=== PATIENT | male | born 1955 | race Caucasian/White ===

== ENCOUNTER 2016-12-08 10:33 | Emergency (ER) | payer MEDICAID ==
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
[2016-12-08 11:07] VITALS: BP 140/78
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
== END 2016-12-08 11:25 | disposition home or self-care (01) ==
LOC: ER 10:33
DX: J02.9 Acute pharyngitis, unspecified (principal); R05 Cough; J34.89 Other specified disorders of nose and nasal sinuses; I25.10 Atherosclerotic heart disease of native coronary artery without angina pectoris; E78.00 Pure hypercholesterolemia, unspecified; I10 Essential (primary) hypertension; J45.909 Unspecified asthma, uncomplicated; J44.9 Chronic obstructive pulmonary disease, unspecified; E11.9 Type 2 diabetes mellitus without complications; Z87.442 Personal history of urinary calculi
CPT/HCPCS: 87070; 87880; 99283

== ENCOUNTER 2017-04-15 15:10 | Inpatient (IN) | payer MEDICAID ==
[2017-04-15] MEDS ORDERED: FAMOTIDINE INJ/PF 20 MG/2 ML SDV IV ONE (15:47)
[2017-04-15] MEDS ORDERED: NORMAL SALINE 1000 ML 1,000 ML IV PRN ×3 (15:47→18:53)
[2017-04-15] MEDS ORDERED: ONDANSETRON HCL INJ/PF 4 MG/2 ML SDV IV ONE (15:47)
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
[2017-04-15 16:32] LABS: ABSOLUTE BASOPHILS # (AUTO) 0.1 10^3/uL (0.0-0.2); ABSOLUTE EOSINOPHILS # (AUTO) 0.2 10^3/uL (0.0-0.6); ABSOLUTE MONOCYTES (AUTO) 0.6 10^3/uL (0.1-1.4); BASOPHILS % (AUTO) 0.9 % (0-2); EOSINOPHILS % (AUTO) 2.3 % (0-6); HEMATOCRIT 43.9 % (37.9-51.0); HEMOGLOBIN 14.5 g/dL (13.5-17.0); HGB HCT DIFFERENCE -0.4; MEAN CORPUSCULAR HEMOGLOBIN 27.5 pg (27.0-33.4); MEAN CORPUSCULAR HGB CONC 32.9 g/dL (32.0-36.0); MEAN CORPUSCULAR VOLUME 84 fl (80-97); MONOCYTES % (AUTO) 8.1 % (3-13); RED BLOOD COUNT 5.26 10^6/uL (4.35-5.55); RED CELL DISTRIBUTION WIDTH 14.8 % (11.5-14.0); SEGMENTED NEUTROPHILS % (AUTO) 50.7 % (42-78); WHITE BLOOD COUNT 7.9 10^3/uL (4.0-10.5)
[2017-04-15 16:57] LABS: ALANINE AMINOTRANSFERASE 39 U/L (21-72); ALBUMIN 4.2 g/dL (3.5-5.0); ALKALINE PHOSPHATASE 96 U/L (38-126); ANION GAP 13 (5-19); ASPARTATE AMINO TRANSFERASE 21 U/L (17-59); BILIRUBIN,DIRECT 0.3 mg/dL (0.0-0.4); BILIRUBIN,TOTAL 0.6 mg/dL (0.2-1.3); BLOOD UREA NITROGEN 31 mg/dL (7-20); CALCIUM 9.5 mg/dL (8.4-10.2); CARBON DIOXIDE 26 mmol/L (22-30); CHLORIDE 102 mmol/L (98-107); CREATININE RESULT 1.94 mg/dL (0.52-1.25); GLUCOSE 116 mg/dL (75-110); POTASSIUM 4.6 mmol/L (3.6-5.0); SODIUM 140.7 mmol/L (137-145); TOTAL PROTEIN 7.7 g/dL (6.3-8.2)
[2017-04-15 18:12] LABS: APPEARANCE,URINE SLIGHTLY-CLOUDY; BILIRUBIN,URINE NEGATIVE (NEGATIVE); GLUCOSE, URINE NEGATIVE (NEGATIVE); KETONES,URINE NEGATIVE (NEGATIVE); LEUKOCYTE ESTERASE,URINE NEGATIVE (NEGATIVE); NITRITE,URINE NEGATIVE (NEGATIVE); PROTEIN,URINE NEGATIVE (NEGATIVE); URINE SPECIFIC GRAVITY 1.016; UROBILINOGEN,URINE NEGATIVE mg/dL (<2.0)
--- NOTE | 2017-04-15 18:22 | RADIOLOGY REPORT (SQ) ---
EXAM DESCRIPTION: CT LTD RENAL STONE PROTOCOL ON COMPLETED DATE/TIME: 04/15/2017 6:11 pm REASON FOR STUDY: flank pain COMPARISON: None. TECHNIQUE: CT scan of the abdomen and pelvis performed without intravenous or oral contrast. Images reviewed with lung, soft tissue, and bone windows. Reconstructed coronal and sagittal MPR images revi ewed. All images stored on PACS. All CT scanners at this facility use dose modulation, iterative reconstruction, and/or weight based d osing when appropriate to reduce radiation dose to as low as reasonably achievable (ALARA). [facility]: Dose Right [facility]: CareDose [facility]: Dose Right [facility]: Teradose 4D [facility]: Platial RADIATION DOSE: 8.06mGy. LIMITATIONS: None. FINDINGS: LOWER CHEST: No significant findings. No nodules or infiltrates. NON-CONTRASTED LIVER, SPLEEN, ADRENALS: Evaluation limited by lack of IV contrast. No identified sign ificant masses. PANCREAS: No masses. No peripancreatic inflammatory changes. GALLBLADDER: Surgically absent. RIGHT KIDNEY AND URETER: No suspicious masses. Assessment limited by lack of IV contrast. No signif icant calcifications. No hydronephrosis or hydroureter. LEFT KIDNEY AND URETER: No suspicious masses. Assessment limited by lack of IV contrast. A tiny non obstructing intrarenal calculus is seen in the upper pole and in the lower pole. No hydronephrosis or hydroureter. AORTA AND RETROPERITONEUM: No aneurysm. No retroperitoneal masses or adenopathy. BOWEL AND PERITONEAL CAVITY: No obvious masses or inflammatory changes. No free fluid. APPENDIX: Surgically absent. PELVIS, BLADDER, AND ABDOMINAL WALL:No abnormal masses. No free fluid. Bladder normal. BONES: No significant findings. OTHER: No other significant finding. IMPRESSION: 2 tiny nonobstructing intrarenal calculi are seen in the left kidney. There is no urete ral stone or obstruction. TECHNICAL DOCUMENTATION: JOB ID: [id number] Quality ID # [id number]: Final reports with documentation of one or more dose reduction techniques (e.g., Au tomated exposure control, adjustment of the mA and/or kV according to patient size, use of iterative reconstruction technique) 2010 [employer]- All Rights Reserved
[2017-04-15] MEDS ORDERED: ACETAMINOPHEN 325 MG TABLET PO PRN (18:53)
[2017-04-15] MEDS ORDERED: ONDANSETRON HCL INJ/PF 4 MG/2 ML SDV IV PRN (18:53)
[2017-04-15] MEDS ORDERED: GLUCAGON,HUMAN RECOMB 1 MG INJ IM PRN (19:00)
[2017-04-15] MEDS ORDERED: DEXTROSE 40% GEL 15 GM TUBE PO PRN ×2 (19:00)
[2017-04-15] MEDS ORDERED: DEXTROSE 50%-WATER 25 GM/50 ML DISP.SYRIN IV PRN ×2 (19:00)
[2017-04-15] MEDS ORDERED: TRAMADOL HCL 50 MG TABLET PO PRN (20:30)
[2017-04-15] MEDS ORDERED: BUTALB/ACETAMINOPHEN/CAFFEINE 1 TAB EACH PO PRN (20:30)
[2017-04-15] MEDS ORDERED: LORATADINE 10 MG TABLET PO PRN (20:47)
[2017-04-15] MEDS ORDERED: LOPERAMIDE HCL 2 MG CAPSULE PO PRN (21:00)
[2017-04-15] MEDS: PANTOPRAZOLE SODIUM 40 MG VIAL IV SCH (21:46)
[2017-04-15] MEDS: METOPROLOL TARTRATE 25 MG TABLET PO SCH (21:47)
[2017-04-16 05:52] LABS: ABSOLUTE EOSINOPHILS # (AUTO) 0.1 10^3/uL (0.0-0.6); ABSOLUTE LYMPHOCYTES (AUTO) 2.1 10^3/uL (0.5-4.7); ABSOLUTE MONOCYTES (AUTO) 0.5 10^3/uL (0.1-1.4); ABSOLUTE NEUT (AUTO) 2.9 10^3/uL (1.7-8.2); BASOPHILS % (AUTO) 0.9 % (0-2); EOSINOPHILS % (AUTO) 2.5 % (0-6); HEMATOCRIT 40.2 % (37.9-51.0); HEMOGLOBIN 13.2 g/dL (13.5-17.0); HGB HCT DIFFERENCE -0.6; LYMPHOCYTES % (AUTO) 36.3 % (13-45); MEAN CORPUSCULAR HEMOGLOBIN 27.6 pg (27.0-33.4); MEAN CORPUSCULAR HGB CONC 32.9 g/dL (32.0-36.0); MEAN CORPUSCULAR VOLUME 84 fl (80-97); MONOCYTES % (AUTO) 8.4 % (3-13); RED BLOOD COUNT 4.79 10^6/uL (4.35-5.55); RED CELL DISTRIBUTION WIDTH 14.3 % (11.5-14.0); SEGMENTED NEUTROPHILS % (AUTO) 51.9 % (42-78); WHITE BLOOD COUNT 5.7 10^3/uL (4.0-10.5)
[2017-04-16 06:16] LABS: ANION GAP 8 (5-19); BLOOD UREA NITROGEN 25 mg/dL (7-20); CALCIUM 8.9 mg/dL (8.4-10.2); CARBON DIOXIDE 23 mmol/L (22-30); CHLORIDE 107 mmol/L (98-107); GLUCOSE 208 mg/dL (75-110); POTASSIUM 4.8 mmol/L (3.6-5.0); SODIUM 137.6 mmol/L (137-145)
[2017-04-16] MEDS: INSULIN LISPRO 100 UNIT/ML 3 ML VIAL SUBCUT PRN ×4 (08:15→22:44)
[2017-04-16] MEDS: ENOXAPARIN SODIUM INJ 30 MG/0.3 ML DISP.SYRIN SUBCUT SCH (08:15)
[2017-04-16] MEDS ORDERED: NORMAL SALINE 1000 ML 1,000 ML IV PRN (08:24)
[2017-04-16] MEDS: PANTOPRAZOLE SODIUM 40 MG VIAL IV SCH ×2 (10:00→22:34)
[2017-04-16] MEDS: TAMSULOSIN HCL 0.4 MG CAP.SR.24H PO SCH (10:00)
[2017-04-16] MEDS: ISOSORBIDE MONONITRATE 60 MG TAB.ER.24H PO SCH (10:01)
[2017-04-16] MEDS: METOPROLOL TARTRATE 25 MG TABLET PO SCH ×2 (10:01→22:35)
[2017-04-16] MEDS: FINASTERIDE 5 MG TABLET PO SCH (10:01)
--- NOTE | 2017-04-16 10:06 | PDOC PROGRESS REPORT ---
Subjective Progress Note for:: 04/16/17 Subjective:: Patient is feeling already better patient's kidney function is all back to the normal. Patient's denied any nausea any vomiting. Physical Exam Vital Signs: Temp Pulse Resp BP Pulse Ox 97.4 F 48 L 15 157/78 H 99 04/16/17 08:34 04/16/17 08:34 04/16/17 08:34 04/16/17 08:34 04/16/17 08:34 Intake & Output 04/15/17 04/16/17 04/17/17 06:59 06:59 06:59 Intake Total 1500 Balance 1500 Weight 78.1 kg General appearance: PRESENT: no acute distress, well-developed, well-nourished Head exam: PRESENT: atraumatic, normocephalic Eye exam: PRESENT: conjunctiva pink, EOMI, PERRLA. ABSENT: scleral icterus Ear exam: PRESENT: normal external ear exam Mouth exam: PRESENT: moist, tongue midline Neck exam: PRESENT: full ROM. ABSENT: carotid bruit, JVD, lymphadenopathy, thyromegaly Respiratory exam: PRESENT: clear to auscultation raya Cardiovascular exam: PRESENT: RRR. ABSENT: diastolic murmur, rubs, systolic murmur Pulses: PRESENT: normal dorsalis pedis pul, +2 pedal pulses bilateral Vascular exam: PRESENT: normal capillary refill GI/Abdominal exam: PRESENT: normal bowel sounds, soft. ABSENT: distended, guarding, mass, organolmegaly, rebound, tenderness Rectal exam: PRESENT: deferred Neurological exam: PRESENT: alert, awake, oriented to person, oriented to place , oriented to time, oriented to situation, CN II-XII grossly intact. ABSENT: motor sensory deficit Psychiatric exam: PRESENT: appropriate affect, normal mood. ABSENT: homicidal ideation, suicidal ideation Skin exam: PRESENT: dry, intact, warm. ABSENT: cyanosis, rash Results Laboratory Results: 04/16/17 05:36 04/16/17 05:36 04/16/17 04/16/17 05:36 05:36 WBC 5.7 RBC 4.79 Hgb 13.2 L Hct 40.2 MCV 84 MCH 27.6 MCHC 32.9 RDW 14.3 H Plt Count 180 Seg Neutrophils % 51.9 Lymphocytes % 36.3 Monocytes % 8.4 Eosinophils % 2.5 Basophils % 0.9 Absolute Neutrophils 2.9 Absolute Lymphocytes 2.1 Absolute Monocytes 0.5 Absolute Eosinophils 0.1 Absolute Basophils 0.0 Sodium 137.6 Potassium 4.8 Chloride 107 Carbon Dioxide 23 Anion Gap 8 BUN 25 H Creatinine 1.20 Est GFR ( Amer) > 60 Est GFR (Non-Af Amer) > 60 Glucose 208 H Calcium 8.9 Impressions: Limited or Localized CT 04/15/17 17:55 IMPRESSION: 2 tiny nonobstructing intrarenal calculi are seen in the left kidney. There is no ureteral stone or obstruction. Assessment & Plan - Diagnosis (1) Acute kidney failure Qualifiers: Acute renal failure type: unspecified Qualified Code(s): N17.9 - Acute kidney failure, unspecified Is this a current diagnosis for this admission?: YesPlan: Currently all resolving encouraged to more p.o. fluid intake and cut down the IV fluid (2) Intractable vomiting Qualifiers: Vomiting type: cyclical vomiting Nausea presence: with nausea Qualified Code(s): G43.A1 - Cyclical vomiting, intractable Is this a current diagnosis for this admission?: YesPlan: Most likely patient have a gastroparesis patient up-to-date with the endoscopy and colonoscopy and see her Dr. Quinonez's outpatient (3) Nausea vomiting and diarrhea Is this a current diagnosis for this admission?: YesPlan: Currently all stable (4) Type 2 diabetes mellitus Qualifiers: Diabetes mellitus complication status: with unspecified complications Is this a current diagnosis for this admission?: YesPlan: Continues a sliding scale will currently hold the metformin due to the acute renal failure (5) Hypertension Qualifiers: Hypertension type: essential hypertension Qualified Code(s): I10 - Essential (primary) hypertension Is this a current diagnosis for this admission?: YesPlan: Currently stable (6) Coronary artery disease Qualifiers: Coronary Disease-Associated Artery/Lesion type: unspecified vessel or lesion type Is this a current diagnosis for this admission?: YesPlan: Patients denied any chest pain and no acute finding (7) Hyperlipidemia Qualifiers: Hyperlipidemia type: other hyperlipidemia Qualified Code(s): E78.4 - Other hyperlipidemia Is this a current diagnosis for this admission?: YesPlan: Stable - Time Time Spent with patient: 15-24 minutes Medications reviewed and adjusted accordingly: Yes Anticipated discharge: Home Within: within 24 hours - Inpatient Certification Medical Necessity: Need for IV Antibiotics Post Hospital Care: D/C [facility] Documentation - Plan Summary Plan Summary: Patient is already improving will cut down the IV fluid hold the lisinopril and the Metformin due to the recent renal failure and adjust other medications. The patient's remained stable hopefully discharge within 24 hours
--- NOTE | 2017-04-16 15:47 | PDOC H&P ---
History of Present Illness Admission Date/PCP: 04/15/17 19:15 ZAIRE GEIGER MD Patient complains of: n/v History of Present Illness: TAHIR FOURNIER is a 61 year old male This is a 61-year-old male with a significant history of the type 2 diabetes mellitus history of the hypertension hyperlipidemia and coronary artery disease and a history of possible gastroparesis and seen the GI several times basically have a persistence of nausea vomiting since last several weeks and patient was trying some Zofran and Phenergan and not getting betterAnd came to the emergency department. In the ER initial workup was all stable except patient's creatinine was elevated Patient CT abdomen and pelvis without contrast so some renal calculi but other than that no obstructions and no other acute pathology When I saw the patient in the ER patient is already started feeling better and patient is able to keep it food down Patients denied any chest pain denied any shortness of the breath Past Medical History Cardiac Medical History: Reports: Coronary Artery Disease - CARDIAC STENTS X5, Hyperlipidema, Hypertension Denies: Atrial Fibrillation, Congestive Heart Failure, Myocardial Infarction , Peripheral Vascular Disease, Pulmonary Embolism Pulmonary Medical History: Reports: Asthma, Bronchitis, Chronic Obstructive Pulmonary Disease (COPD), Pneumonia, Sleep Apnea Denies: Respiratory Failure, Tuberculosis Neurological Medical History: Denies: Seizures Endocrine Medical History: Reports: Diabetes Mellitus Type 1, Diabetes Mellitus Type 2 Denies: Hyperthyroidism, Hypothyroidism Renal/ Medical History: Denies: End Stage Renal Disease Malignancy Medical History: Denies: Leukemia, Lung Cancer GI Medical History: Reports: Gastroesophageal Reflux Disease, Hiatal Hernia Denies: Crohn's Disease Musculoskeltal Medical History: Reports: Arthritis - bursitis left shoulder, back bone spurs Denies: Fibromyalgia Psychiatric Medical History: Reports: Depression - situational Denies: Bipolar Disorder, Dementia, Post Traumatic Stress Disorder Hematology: Reports: Anemia Denies: Hemophilia, Sickle Cell Disease Infectious Medical History: Denies: HIV Past Surgical History Past Surgical History: Reports: Cardiac Catheterization - 5 stents, Cholecystectomy, Coronary Stent, Orthopedic Surgery - right leg, back surgery, Tonsillectomy Denies: Appendectomy, Colostomy, Coronary Artery Bypass Graft, Gastric Bypass Surgery, Herniorrhaphy, Pacemaker Social History Smoking Status: Never Smoker Frequency of Alcohol Use: None Hx Recreational Drug Use: No Drugs: None Hx Prescription Drug Abuse: No - Advance Directive Resuscitation Status: Full Code Family History Family History: Arthritis, CAD, CVA, DM, Hyperlipidemia, Hypertension, Malignancy Parental Family History Reviewed: Yes Children Family History Reviewed: Yes Sibling(s) Family History Reviewed.: Yes Medication/Allergy Home Medications: Butalb/Acetaminophen/Caffeine [Fioricet (50-325-40 mg) Tablet] 1 tab PO BIDP PRN 04/15/17 Fexofenadine HCl [Cheri] 180 mg PO DAILYP PRN 04/15/17 Finasteride [Proscar 5 mg Tablet] 5 mg PO DAILY 04/15/17 Insulin Aspart [Novolog Flexpen] 20 unit SQ TID 04/15/17 Isosorbide Mononitrate [Imdur 60 mg Tablet.er] 60 mg PO DAILY 04/15/17 Lisinopril [Prinivil 5 mg Tablet] 5 mg PO DAILY 04/15/17 Loperamide HCl [Loperamide] 2 mg PO ASDIR PRN 04/15/17 Metformin HCl [Glucophage] 1,000 mg PO BIDACBS 04/15/17 Metoprolol Tartrate [Lopressor 25 mg Tablet] 25 mg PO Q12 04/15/17 Montelukast Sodium [Singulair 10 mg Tablet] 10 mg PO QPM 04/15/17 Tamsulosin HCl [Flomax 0.4 mg Cap.sr] 0.4 mg PO DAILY 04/15/17 Tramadol HCl [Ultram 50 mg Tablet] 50 mg PO BIDP PRN 04/15/17 Allergies/Adverse Reactions: clopidogrel bisulfate [From Plavix] Adverse Reaction (Severe, Verified 04/15/17 15:13) bleeding from ear/NOSE Review of Systems Constitutional: ABSENT: chills, fever(s), headache(s), weight gain, weight loss Eyes: ABSENT: visual disturbances Ears: ABSENT: hearing changes Cardiovascular: ABSENT: chest pain, dyspnea on exertion, edema, orthropnea, palpitations Respiratory: ABSENT: cough, hemoptysis Gastrointestinal: PRESENT: diarrhea, nausea, vomiting Genitourinary: ABSENT: dysuria, hematuria Musculoskeletal: ABSENT: joint swelling Integumentary: ABSENT: rash, wounds Neurological: ABSENT: abnormal gait, abnormal speech, confusion, dizziness, focal weakness, syncope Psychiatric: ABSENT: anxiety, depression, homidical ideation, suicidal ideation Endocrine: ABSENT: cold intolerance, heat intolerance, menstrual abnormalities, polydipsia, polyuria Hematologic/Lymphatic: ABSENT: easy bleeding, easy bruising, lymphadenopathy Physical Exam Vital Signs: Temp Pulse Resp BP Pulse Ox 98.0 F 56 L 11 L 124/78 95 04/15/17 15:13 04/15/17 15:13 04/15/17 19:00 04/15/17 18:01 04/15/17 19:00 General appearance: PRESENT: no acute distress, well-developed, well-nourished Head exam: PRESENT: atraumatic, normocephalic Eye exam: PRESENT: conjunctiva pink, EOMI, PERRLA. ABSENT: scleral icterus Ear exam: PRESENT: normal external ear exam Mouth exam: PRESENT: moist, tongue midline Neck exam: PRESENT: full ROM. ABSENT: carotid bruit, JVD, lymphadenopathy, thyromegaly Respiratory exam: PRESENT: clear to auscultation raya Cardiovascular exam: PRESENT: RRR. ABSENT: diastolic murmur, rubs, systolic murmur Pulses: PRESENT: normal dorsalis pedis pul, +2 pedal pulses bilateral Vascular exam: PRESENT: normal capillary refill GI/Abdominal exam: PRESENT: normal bowel sounds, soft. ABSENT: distended, guarding, mass, organolmegaly, rebound, tenderness Rectal exam: PRESENT: deferred Neurological exam: PRESENT: alert, awake, oriented to person, oriented to place , oriented to time, oriented to situation, CN II-XII grossly intact. ABSENT: motor sensory deficit Psychiatric exam: PRESENT: appropriate affect, normal mood. ABSENT: homicidal ideation, suicidal ideation Skin exam: PRESENT: dry, intact, warm. ABSENT: cyanosis, rash Results Impressions: Limited or Localized CT 04/15/17 17:55 IMPRESSION: 2 tiny nonobstructing intrarenal calculi are seen in the left kidney. There is no ureteral stone or obstruction. Assessment & Plan - Diagnosis (1) Acute kidney failure Qualifiers: Acute renal failure type: unspecified Qualified Code(s): N17.9 - Acute kidney failure, unspecified Is this a current diagnosis for this admission?: YesPlan: Start the patient on IV fluid and hold the lisinopril and the Metformin (2) Intractable vomiting Qualifiers: Vomiting type: cyclical vomiting Nausea presence: with nausea Qualified Code(s): G43.A1 - Cyclical vomiting, intractable Is this a current diagnosis for this admission?: YesPlan: Most likely related to the gastroparesis patient already seen by Dr. Quinonez and a CT of the abdomen and pelvis was all stable (3) Nausea vomiting and diarrhea Is this a current diagnosis for this admission?: YesPlan: Currently all stable (4) Coronary artery disease Qualifiers: Coronary Disease-Associated Artery/Lesion type: unspecified vessel or lesion type Is this a current diagnosis for this admission?: YesPlan: Patients denied any chest pain and no acute finding (5) Dehydration Is this a current diagnosis for this admission?: YesPlan: Continuous IV fluid (6) Hyperlipidemia Qualifiers: Hyperlipidemia type: other hyperlipidemia Qualified Code(s): E78.4 - Other hyperlipidemia Is this a current diagnosis for this admission?: Yes (7) Hypertension Qualifiers: Hypertension type: essential hypertension Qualified Code(s): I10 - Essential (primary) hypertension Is this a current diagnosis for this admission?: YesPlan: Hold the lisinopril (8) Type 2 diabetes mellitus Qualifiers: Diabetes mellitus complication status: with unspecified complications Is this a current diagnosis for this admission?: YesPlan: Continues a sliding scale will currently hold the metformin due to the acute renal failure - Time Time Spent: 30 to 50 Minutes Medications reviewed and adjusted accordingly: Yes Anticipated discharge: Home Within: within 48 hours - Inpatient Certification Medical Necessity: Need Close Monitoring Due to Risk of Patient Decompensation, Need For IV Fluids Post Hospital Care: D/C Hearing Care Professional Documentation - Plan Summary Plan Summary: Admitted in the telemetry bed start the IV fluid and IV Zofran and hold the lisinopril and the Metformin and continues to monitor the patient's
[2017-04-16] MEDS ORDERED: MONTELUKAST SODIUM 10 MG TABLET PO SCH (18:00)
[2017-04-17 05:04] LABS: ABSOLUTE EOSINOPHILS # (AUTO) 0.2 10^3/uL (0.0-0.6); ABSOLUTE LYMPHOCYTES (AUTO) 1.9 10^3/uL (0.5-4.7); ABSOLUTE MONOCYTES (AUTO) 0.4 10^3/uL (0.1-1.4); ABSOLUTE NEUT (AUTO) 2.4 10^3/uL (1.7-8.2); BASOPHILS % (AUTO) 0.8 % (0-2); EOSINOPHILS % (AUTO) 3.3 % (0-6); HEMATOCRIT 40.7 % (37.9-51.0); HEMOGLOBIN 13.7 g/dL (13.5-17.0); HGB HCT DIFFERENCE 0.4; LYMPHOCYTES % (AUTO) 37.6 % (13-45); MEAN CORPUSCULAR HEMOGLOBIN 27.9 pg (27.0-33.4); MEAN CORPUSCULAR HGB CONC 33.6 g/dL (32.0-36.0); MEAN CORPUSCULAR VOLUME 83 fl (80-97); RED BLOOD COUNT 4.91 10^6/uL (4.35-5.55); RED CELL DISTRIBUTION WIDTH 13.9 % (11.5-14.0); SEGMENTED NEUTROPHILS % (AUTO) 49.3 % (42-78); WHITE BLOOD COUNT 4.9 10^3/uL (4.0-10.5)
[2017-04-17 05:22] LABS: ANION GAP 8 (5-19); BLOOD UREA NITROGEN 19 mg/dL (7-20); CALCIUM 9.8 mg/dL (8.4-10.2); CARBON DIOXIDE 24 mmol/L (22-30); CHLORIDE 105 mmol/L (98-107); CREATININE RESULT 0.99 mg/dL (0.52-1.25); GLUCOSE 232 mg/dL (75-110); POTASSIUM 4.5 mmol/L (3.6-5.0)
[2017-04-17 10:11] VITALS: BP 141/70
[2017-04-17] MEDS: ENOXAPARIN SODIUM INJ 30 MG/0.3 ML DISP.SYRIN SUBCUT SCH (10:16)
[2017-04-17] MEDS: FINASTERIDE 5 MG TABLET PO SCH (10:23)
[2017-04-17] MEDS: TAMSULOSIN HCL 0.4 MG CAP.SR.24H PO SCH (10:23)
[2017-04-17] MEDS: INSULIN LISPRO 100 UNIT/ML 3 ML VIAL SUBCUT PRN (10:23)
[2017-04-17] MEDS: ISOSORBIDE MONONITRATE 60 MG TAB.ER.24H PO SCH (10:23)
[2017-04-17] MEDS: METOPROLOL TARTRATE 25 MG TABLET PO SCH (10:23)
[2017-04-17] MEDS: PANTOPRAZOLE SODIUM 40 MG VIAL IV SCH (10:36)
--- NOTE | 2017-04-17 10:59 | PDOC DISCHARGE SUMMARY ---
General - Admit/Disc Date/PCP Admission Date/Primary Care Provider: 04/15/17 19:15 ZAIRE GEIGER MD Discharge Date: 04/17/17 - Discharge Diagnosis (1) Acute kidney failure Is this a current diagnosis for this admission?: YesSummary: Currently all resolved (2) Intractable vomiting Is this a current diagnosis for this admission?: YesSummary: Currently all resolved most likely underlying gastroparesis (3) Nausea vomiting and diarrhea Is this a current diagnosis for this admission?: YesSummary: All resolved (4) Coronary artery disease Is this a current diagnosis for this admission?: YesSummary: Currently stable no symptoms and patient see the cardiology every 6 month (5) Dehydration Is this a current diagnosis for this admission?: YesSummary: Currently all resolved (6) Hyperlipidemia Is this a current diagnosis for this admission?: YesSummary: Continues to current medications (7) Hypertension Is this a current diagnosis for this admission?: YesSummary: Stable we hold the lisinopril and reevaluate next week kidney functions and still remain stable restart again (8) Type 2 diabetes mellitus Is this a current diagnosis for this admission?: YesSummary: Continues the Lantus and NovoLog and DC the Metformin - Additional Information Resuscitation Status: Full Code Discharge Diet: Diabetic Discharge Activity: Activity As Tolerated, Balance Activity w/Rest Home Medications: Butalb/Acetaminophen/Caffeine [Fioricet (50-325-40 mg) Tablet] 1 tab PO BIDP PRN 04/15/17 Fexofenadine HCl [Cheri] 180 mg PO DAILYP PRN 04/15/17 Finasteride [Proscar 5 mg Tablet] 5 mg PO DAILY 04/15/17 Insulin Aspart [Novolog Flexpen] 20 unit SQ TID 04/15/17 Isosorbide Mononitrate [Imdur 60 mg Tablet.er] 60 mg PO DAILY 04/15/17 Loperamide HCl [Loperamide] 2 mg PO ASDIR PRN 04/15/17 Metoprolol Tartrate [Lopressor 25 mg Tablet] 25 mg PO Q12 04/15/17 Montelukast Sodium [Singulair 10 mg Tablet] 10 mg PO QPM 04/15/17 Tamsulosin HCl [Flomax 0.4 mg Cap.sr] 0.4 mg PO DAILY 04/15/17 Tramadol HCl [Ultram 50 mg Tablet] 50 mg PO BIDP PRN 04/15/17 History of Present Illness History of Present Illness: TAHIR FOURNIER is a 61 year old male This is a 61-year-old male with a significant history of the type 2 diabetes mellitus history of the hypertension hyperlipidemia and coronary artery disease and a history of possible gastroparesis and seen the GI several times basically have a persistence of nausea vomiting since last several weeks and patient was trying some Zofran and Phenergan and not getting betterAnd came to the emergency department. In the ER initial workup was all stable except patient's creatinine was elevated Patient CT abdomen and pelvis without contrast so some renal calculi but other than that no obstructions and no other acute pathology When I saw the patient in the ER patient is already started feeling better and patient is able to keep it food down Patients denied any chest pain denied any shortness of the breath Hospital Course Hospital Course: This is a 61-year-old male with ongoing problem for some nausea vomiting and seen by the Dr. Quinonez in the past and already have an endoscopy and colonoscopy done several times and most likely underlying gastroparesis having nausea vomiting since last couple weeks and came to the emergency department and found acute renal failure and dehydration's. Patient was given IV fluid and patient's CT abdomen pelvis without contrast was done and so some nonobstructive renal calculi but other than that no acute finding Patient is already started feeling better patient's kidney function is all resolved patient able to eat and keep it down without any problem and patient's move around in the hallway and no other issue Patient's other chronic medical problems all stable At this point patient's discharge home with the stable conditions and DC the lisinopril and the Metformin and continues to other home medications and reevaluate in a one-week and make appointment to see the GI for further evaluations as outpatient Physical Exam Vital Signs: Temp Pulse Resp BP Pulse Ox 97.7 F 55 L 20 141/70 H 99 04/17/17 10:04/17/17 10:08 04/17/17 10:04/17/17 10:04/17/17 10:08 Intake & Output 04/16/17 04/17/17 04/18/17 06:59 06:59 06:59 Intake Total 1500 752 Balance 1500 752 Weight 78.1 kg 78.2 kg General appearance: PRESENT: no acute distress, well-developed, well-nourished Head exam: PRESENT: atraumatic, normocephalic Eye exam: PRESENT: conjunctiva pink, EOMI, PERRLA. ABSENT: scleral icterus Ear exam: PRESENT: normal external ear exam Mouth exam: PRESENT: moist, tongue midline Neck exam: PRESENT: full ROM. ABSENT: carotid bruit, JVD, lymphadenopathy, thyromegaly Respiratory exam: PRESENT: clear to auscultation raya Cardiovascular exam: PRESENT: RRR. ABSENT: diastolic murmur, rubs, systolic murmur Pulses: PRESENT: normal dorsalis pedis pul, +2 pedal pulses bilateral Vascular exam: PRESENT: normal capillary refill GI/Abdominal exam: PRESENT: normal bowel sounds, soft. ABSENT: distended, guarding, mass, organolmegaly, rebound, tenderness Rectal exam: PRESENT: deferred Neurological exam: PRESENT: alert, awake, oriented to person, oriented to place , oriented to time, oriented to situation, CN II-XII grossly intact. ABSENT: motor sensory deficit Psychiatric exam: PRESENT: appropriate affect, normal mood. ABSENT: homicidal ideation, suicidal ideation Skin exam: PRESENT: dry, intact, warm. ABSENT: cyanosis, rash Results Laboratory Results: 04/17/17 03:58 04/17/17 03:58 04/17/17 04/17/17 03:58 03:58 WBC 4.9 RBC 4.91 Hgb 13.7 Hct 40.7 MCV 83 MCH 27.9 MCHC 33.6 RDW 13.9 Plt Count 196 Seg Neutrophils % 49.3 Lymphocytes % 37.6 Monocytes % 9.0 Eosinophils % 3.3 Basophils % 0.8 Absolute Neutrophils 2.4 Absolute Lymphocytes 1.9 Absolute Monocytes 0.4 Absolute Eosinophils 0.2 Absolute Basophils 0.0 Sodium 137.0 Potassium 4.5 Chloride 105 Carbon Dioxide 24 Anion Gap 8 BUN 19 Creatinine 0.99 Est GFR ( Amer) > 60 Est GFR (Non-Af Amer) > 60 Glucose 232 H Calcium 9.8 Impressions: Limited or Localized CT 04/15/17 17:55 IMPRESSION: 2 tiny nonobstructing intrarenal calculi are seen in the left kidney. There is no ureteral stone or obstruction. Plan Time Spent: Greater than 30 Minutes - DC home with the stable conditions and DC the lisinopril and the Metformin and follow as outpatients in a one-week and will repeat the Chem-7. Follow with the GI as outpatients make appointment
== END 2017-04-17 10:38 | disposition home or self-care (01) | DRG 684 ==
LOC: ER 15:10 → EH 18:53 → INTOOBSV 19:15 → EH 19:15 → UNDOADMOB 19:15 → OBSVTOIN 19:15 → 5 20:24
PROVIDERS: ADMIT Family Medicine; ATTEND Family Medicine
DX: N17.9 Acute kidney failure, unspecified (principal); E86.0 Dehydration; G43.A1 Cyclical vomiting, in migraine, intractable; I25.10 Atherosclerotic heart disease of native coronary artery without angina pectoris; E78.5 Hyperlipidemia, unspecified; I10 Essential (primary) hypertension; E11.43 Type 2 diabetes mellitus with diabetic autonomic (poly)neuropathy; K31.84 Gastroparesis; N20.0 Calculus of kidney; J44.9 Chronic obstructive pulmonary disease, unspecified; G47.30 Sleep apnea, unspecified; K21.9 Gastro-esophageal reflux disease without esophagitis; K44.9 Diaphragmatic hernia without obstruction or gangrene; M46.09 Spinal enthesopathy, multiple sites in spine; F43.21 Adjustment disorder with depressed mood; N40.0 Benign prostatic hyperplasia without lower urinary tract symptoms; Z88.8 Allergy status to other drugs, medicaments and biological substances; Z79.4 Long term (current) use of insulin; Z79.899 Other long term (current) drug therapy; Z95.5 Presence of coronary angioplasty implant and graft; Z90.49 Acquired absence of other specified parts of digestive tract; Z82.61 Family history of arthritis; Z82.3 Family history of stroke; Z82.49 Family history of ischemic heart disease and other diseases of the circulatory system; Z83.3 Family history of diabetes mellitus; Z80.9 Family history of malignant neoplasm, unspecified
CPT/HCPCS: 36415; 76380; 80048; 80053; 81001; 82962; 83690; 85025; 87086; 96361; 96365; 96375; 99285; J1650; J1815; J2405; J7030; S0028; S0164

== ENCOUNTER 2017-04-20 14:54 | Inpatient (IN) | payer MEDICAID ==
[2017-04-20 15:23] LABS: ABSOLUTE BASOPHILS # (AUTO) 0.1 10^3/uL (0.0-0.2); ABSOLUTE EOSINOPHILS # (AUTO) 0.2 10^3/uL (0.0-0.6); ABSOLUTE LYMPHOCYTES (AUTO) 2.1 10^3/uL (0.5-4.7); ABSOLUTE MONOCYTES (AUTO) 0.6 10^3/uL (0.1-1.4); ABSOLUTE NEUT (AUTO) 4.2 10^3/uL (1.7-8.2); EOSINOPHILS % (AUTO) 2.6 % (0-6); HEMATOCRIT 43.3 % (37.9-51.0); HEMOGLOBIN 14.4 g/dL (13.5-17.0); HGB HCT DIFFERENCE -0.1; LYMPHOCYTES % (AUTO) 29.5 % (13-45); MEAN CORPUSCULAR HEMOGLOBIN 27.6 pg (27.0-33.4); MEAN CORPUSCULAR HGB CONC 33.2 g/dL (32.0-36.0); MEAN CORPUSCULAR VOLUME 83 fl (80-97); MONOCYTES % (AUTO) 8.5 % (3-13); RED CELL DISTRIBUTION WIDTH 14.1 % (11.5-14.0); SEGMENTED NEUTROPHILS % (AUTO) 58.4 % (42-78); WHITE BLOOD COUNT 7.3 10^3/uL (4.0-10.5)
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
[2017-04-20 15:41] LABS: ALANINE AMINOTRANSFERASE 51 U/L (21-72); ALKALINE PHOSPHATASE 99 U/L (38-126); ANION GAP 14 (5-19); ASPARTATE AMINO TRANSFERASE 35 U/L (17-59); BILIRUBIN,DIRECT 0.3 mg/dL (0.0-0.4); BILIRUBIN,TOTAL 0.8 mg/dL (0.2-1.3); BLOOD UREA NITROGEN 27 mg/dL (7-20); CALCIUM 9.6 mg/dL (8.4-10.2); CARBON DIOXIDE 24 mmol/L (22-30); CHLORIDE 104 mmol/L (98-107); CREATINE KINASE 57 U/L (55-170); CREATININE RESULT 1.76 mg/dL (0.52-1.25); GLUCOSE 267 mg/dL (75-110); POTASSIUM 5.3 mmol/L (3.6-5.0); SODIUM 141.7 mmol/L (137-145); TOTAL PROTEIN 7.2 g/dL (6.3-8.2)
[2017-04-20] MEDS ORDERED: NORMAL SALINE 1000 ML 1,000 ML IV ONE (15:46)
[2017-04-20 15:52] LABS: CREATINE KINASE MB 0.69 ng/mL (<4.55)
[2017-04-20 15:54] LABS: TROPONIN I < 0.012 ng/mL
[2017-04-20] MEDS ORDERED: RINGERS SOLUTION,LACTATED 1,000 ML IV ONE (17:02)
[2017-04-21] MEDS ORDERED: DEXTROSE 40% GEL 15 GM TUBE PO PRN (00:06)
[2017-04-21] MEDS ORDERED: DEXTROSE 50%-WATER SYRINGE 12.5 GM/25 ML DOSE IV PRN (00:06)
[2017-04-21] MEDS ORDERED: GLUCAGON,HUMAN RECOMB 1 MG INJ IM PRN (00:06)
[2017-04-21] MEDS ORDERED: DEXTROSE 40% GEL 15 GM TUBE X 2 PO PRN (00:06)
[2017-04-21] MEDS ORDERED: DEXTROSE 50%-WATER SYRINGE 25 GM/50 ML DOSE IV PRN (00:06)
[2017-04-21] MEDS ORDERED: BUTALB/ACETAMINOPHEN/CAFFEINE 1 TAB EACH PO PRN (00:08)
[2017-04-21] MEDS ORDERED: TRAMADOL HCL 50 MG TABLET PO PRN (00:08)
[2017-04-21] MEDS ORDERED: LORATADINE 10 MG TABLET PO PRN (00:23)
[2017-04-21] MEDS ORDERED: METOPROLOL TARTRATE 25 MG TABLET PO ONE (00:30)
[2017-04-21] MEDS ORDERED: INSULIN GLARGINE,HUM.REC.ANLOG 1,000 UNIT/10 ML UNIT SUBCUT ONE (00:30)
[2017-04-21] MEDS: INSULIN LISPRO 100 UNIT/ML 3 ML VIAL SUBCUT PRN ×6 (00:55→22:06)
[2017-04-21] MEDS: INSULIN GLARGINE,HUM.REC.ANLOG 300 UNIT/3 ML INSULN.PEN SUBCUT SCH ×2 (00:55→22:06)
[2017-04-21] MEDS ORDERED: MONTELUKAST SODIUM 10 MG TABLET PO ONE (01:00)
[2017-04-21] MEDS: 1/2 NORMAL SALINE 1,000 ML IV PRN ×2 (01:00→14:21)
[2017-04-21 01:30] LABS: APPEARANCE,URINE CLEAR; BILIRUBIN,URINE NEGATIVE (NEGATIVE); GLUCOSE, URINE >=500 mg/dL (NEGATIVE); KETONES,URINE NEGATIVE (NEGATIVE); LEUKOCYTE ESTERASE,URINE NEGATIVE (NEGATIVE); NITRITE,URINE NEGATIVE (NEGATIVE); PROTEIN,URINE 30 mg/dL (NEGATIVE); URINE SPECIFIC GRAVITY 1.016; UROBILINOGEN,URINE NEGATIVE mg/dL (<2.0)
[2017-04-21] MEDS: LANSOPRAZOLE 30 MG TAB.RAP.DR PO SCH (05:19)
[2017-04-21] MEDS: ISOSORBIDE MONONITRATE 60 MG TAB.ER.24H PO SCH (09:30)
[2017-04-21] MEDS: FINASTERIDE 5 MG TABLET PO SCH (09:30)
[2017-04-21] MEDS: TAMSULOSIN HCL 0.4 MG CAP.SR.24H PO SCH (09:30)
[2017-04-21] MEDS: METOPROLOL TARTRATE 25 MG TABLET PO SCH ×3 (10:57→22:04)
--- NOTE | 2017-04-21 13:22 | PDOC H&P ---
History of Present Illness Admission Date/PCP: 04/20/17 18:41 ZAIRE GEIGER MD History of Present Illness: TAHIR FOURNIER is a 61 year old male, he came to the emergency room because he had episode of loss of consciousness there is no antecedent chest pain, syncope , shortness of breath. He was working in the sun for a very prolonged period of time ,it was felt that he probably was dehydrated in the emergency room he was evaluated the serum creatinine was elevated suggesting dehydration. He was admitted previously for dehydration Past Medical History Cardiac Medical History: Reports: Coronary Artery Disease - CARDIAC STENTS X5, Hyperlipidema, Hypertension Pulmonary Medical History: Reports: Asthma, Bronchitis, Chronic Obstructive Pulmonary Disease (COPD), Pneumonia, Sleep Apnea Neurological Medical History: Denies: Seizures Endocrine Medical History: Reports: Diabetes Mellitus Type 2 GI Medical History: Reports: Gastroesophageal Reflux Disease, Hiatal Hernia Musculoskeltal Medical History: Reports: Arthritis - bursitis left shoulder, back bone spurs Hematology: Reports: Anemia Past Surgical History Past Surgical History: Reports: Cardiac Catheterization - 5 stents, Cholecystectomy, Coronary Stent, Orthopedic Surgery - right leg, back surgery, Tonsillectomy Social History Smoking Status: Former Smoker Number of Years Smokin Frequency of Alcohol Use: None Hx Recreational Drug Use: No Drugs: None Hx Prescription Drug Abuse: No - Advance Directive Resuscitation Status: Full Code Family History Family History: Reviewed & Not Pertinent, Arthritis, CAD, CVA, DM, Hyperlipidemia, Hypertension, Malignancy Parental Family History Reviewed: Yes Children Family History Reviewed: Yes Sibling(s) Family History Reviewed.: Yes Medication/Allergy Home Medications: Butalb/Acetaminophen/Caffeine [Fioricet (50-325-40 mg) Tablet] 1 tab PO BIDP PRN 04/15/17 Fexofenadine HCl [Cheri] 180 mg PO DAILYP PRN 04/15/17 Finasteride [Proscar 5 mg Tablet] 5 mg PO DAILY 04/15/17 Insulin Aspart [Novolog Flexpen] 20 unit SQ AC 04/15/17 Isosorbide Mononitrate [Imdur 60 mg Tablet.er] 60 mg PO DAILY 04/15/17 Metoprolol Tartrate [Lopressor 25 mg Tablet] 25 mg PO Q12 04/15/17 Montelukast Sodium [Singulair 10 mg Tablet] 10 mg PO QPM 04/15/17 Tamsulosin HCl [Flomax 0.4 mg Cap.sr] 0.4 mg PO QHS 04/15/17 Tramadol HCl [Ultram 50 mg Tablet] 50 mg PO BIDP PRN 04/15/17 Insulin Glargine,Hum.rec.anlog [Lantus] 50 unit SQ QHS 04/20/17 Omeprazole 40 mg PO DAILY 04/20/17 Multivits-Minerals/FA/Lycopene [One Daily For Men Tablet] 1 tab PO DAILY Allergies/Adverse Reactions: clopidogrel bisulfate [From Plavix] Adverse Reaction (Severe, Verified 04/20/17 15:11) bleeding from ear/NOSE Review of Systems Constitutional: ABSENT: chills, fever(s), headache(s), weight gain, weight loss Eyes: ABSENT: visual disturbances Ears: ABSENT: hearing changes Cardiovascular: PRESENT: other - syncope Respiratory: ABSENT: cough, hemoptysis Gastrointestinal: ABSENT: abdominal pain, constipation, diarrhea, hematemesis, hematochezia, nausea, vomiting Genitourinary: ABSENT: dysuria, hematuria Musculoskeletal: ABSENT: joint swelling Integumentary: ABSENT: rash, wounds Neurological: ABSENT: abnormal gait, abnormal speech, confusion, dizziness, focal weakness, syncope Psychiatric: ABSENT: anxiety, depression, homidical ideation, suicidal ideation Endocrine: ABSENT: cold intolerance, heat intolerance, menstrual abnormalities, polydipsia, polyuria Hematologic/Lymphatic: ABSENT: easy bleeding, easy bruising, lymphadenopathy Physical Exam Vital Signs: Temp Pulse Resp BP Pulse Ox 98.2 F 55 L 19 163/81 H 97 04/21/17 10:57 04/21/17 10:57 04/21/17 10:57 04/21/17 10:57 04/21/17 10:57 Intake & Output 04/20/17 04/21/17 04/22/17 06:59 06:59 06:59 Intake Total 759 598 Output Total 1175 Balance 759 -577 Weight 80.2 kg General appearance: PRESENT: no acute distress, well-developed, well-nourished Head exam: PRESENT: atraumatic, normocephalic Eye exam: PRESENT: conjunctiva pink, EOMI, PERRLA Ear exam: PRESENT: normal external ear exam Mouth exam: PRESENT: moist, tongue midline Neck exam: PRESENT: full ROM Respiratory exam: PRESENT: clear to auscultation raya Cardiovascular exam: PRESENT: RRR, +S1, +S2 Pulses: PRESENT: normal dorsalis pedis pul, +2 pedal pulses bilateral Vascular exam: PRESENT: normal capillary refill GI/Abdominal exam: PRESENT: normal bowel sounds, soft Rectal exam: PRESENT: deferred Neurological exam: PRESENT: alert, awake, oriented to person, oriented to place , oriented to time, oriented to situation, CN II-XII grossly intact Psychiatric exam: PRESENT: appropriate affect, normal mood Skin exam: PRESENT: dry, intact, warm. ABSENT: cyanosis, rash Results Laboratory Results: 04/21/17 01:05 Urine Color YELLOW Urine Appearance CLEAR Urine pH 5.0 Ur Specific [place] 1.016 Urine Protein 30 H Urine Glucose (UA) >=500 H Urine Ketones NEGATIVE Urine Blood NEGATIVE Urine Nitrite NEGATIVE Ur Leukocyte Esterase NEGATIVE Urine WBC (Auto) 0 Urine RBC (Auto) 0 Assessment & Plan - Diagnosis (1) Syncope Qualifiers: Syncope type: unspecified Qualified Code(s): R55 - Syncope and collapse Is this a current diagnosis for this admission?: YesPlan: The etiology of the loss of consciousness is not clear, it could be related to the prolonged exposure in the sun, a 2D echo will be ordered (2) Acute kidney injury Is this a current diagnosis for this admission?: YesPlan: Acute kidney injury probably prerenal
[2017-04-21 13:40] LABS: HEMATOCRIT 38.2 % (37.9-51.0); HEMOGLOBIN 12.6 g/dL (13.5-17.0); HGB HCT DIFFERENCE -0.4; MEAN CORPUSCULAR HEMOGLOBIN 27.5 pg (27.0-33.4); MEAN CORPUSCULAR HGB CONC 32.9 g/dL (32.0-36.0); MEAN CORPUSCULAR VOLUME 84 fl (80-97); RED BLOOD COUNT 4.56 10^6/uL (4.35-5.55); RED CELL DISTRIBUTION WIDTH 14.2 % (11.5-14.0); WHITE BLOOD COUNT 6.5 10^3/uL (4.0-10.5)
[2017-04-21 13:45] LABS: PROTHROMBIN TIME 12.8 SEC (11.4-15.4)
[2017-04-21 13:46] LABS: PARTIAL THROMBOPLASTIN TIME 29.3 SEC (23.5-35.8)
[2017-04-21 14:09] LABS: ALANINE AMINOTRANSFERASE 44 U/L (21-72); ALBUMIN 3.3 g/dL (3.5-5.0); ALKALINE PHOSPHATASE 106 U/L (38-126); ANION GAP 13 (5-19); ASPARTATE AMINO TRANSFERASE 20 U/L (17-59); BILIRUBIN,DIRECT 0.3 mg/dL (0.0-0.4); BILIRUBIN,TOTAL 0.5 mg/dL (0.2-1.3); BLOOD UREA NITROGEN 21 mg/dL (7-20); CALCIUM 9.3 mg/dL (8.4-10.2); CARBON DIOXIDE 24 mmol/L (22-30); CHLORIDE 102 mmol/L (98-107); CREATININE RESULT 1.05 mg/dL (0.52-1.25); GLUCOSE 317 mg/dL (75-110); POTASSIUM 4.7 mmol/L (3.6-5.0); SODIUM 138.5 mmol/L (137-145); TOTAL PROTEIN 6.2 g/dL (6.3-8.2)
[2017-04-21 14:12] LABS: CREATINE KINASE MB 0.42 ng/mL (<4.55)
[2017-04-21 14:18] LABS: TROPONIN I < 0.012 ng/mL
[2017-04-21] MEDS: HEPARIN SOD (PORCINE) 5,000 UNIT/ML 1 ML SYRINGE SUBCUT SCH ×2 (14:18→22:06)
--- NOTE | 2017-04-21 15:12 | RADIOLOGY REPORT (SQ) ---
EXAM DESCRIPTION: CHEST PA/LAT COMPLETED DATE/TIME: 04/21/2017 2:51 pm REASON FOR STUDY: Status post fall, pain COMPARISON: 11/02/2016 EXAM PARAMETERS: NUMBER OF VIEWS: two views TECHNIQUE: Digital Frontal and Lateral radiographic views of the chest acquired. RADIATION DOSE: NA LIMITATIONS: none FINDINGS: LUNGS AND PLEURA: No new opacities, masses or pneumothorax. No pleural effusion. MEDIASTINUM AND HILAR STRUCTURES: No masses or contour abnormalities. HEART AND VASCULAR STRUCTURES: Heart stable in size. No evidence for failure. BONES: No acute findings. HARDWARE: None in the chest. OTHER: No other significant finding. IMPRESSION: NO ACUTE CARDIOPULMONARY PROCESS. NO SIGNIFICANT CHANGE FROM PRIOR STUDY. TECHNICAL DOCUMENTATION: JOB ID: [id number]- All Rights Reserved
--- NOTE | 2017-04-21 15:13 | RADIOLOGY REPORT (SQ) ---
EXAM DESCRIPTION: KNEE LEFT 2 VIEWS COMPLETED DATE/TIME: 04/21/2017 2:51 pm REASON FOR STUDY: Status post fall, pain COMPARISON: None. NUMBER OF VIEWS: Two views. TECHNIQUE: AP and lateral radiographic images acquired of the left knee. LIMITATIONS: None. FINDINGS: MINERALIZATION: Normal. BONES: No acute fracture or dislocation. No worrisome bone lesions. Mild enthesopathy superior thacker lla and tibial tuberosity. JOINT: No effusion. SOFT TISSUES: No soft tissue swelling. No radio-opaque foreign body. OTHER: No other significant finding. IMPRESSION: NO RADIOGRAPHIC EVIDENCE OF ACUTE INJURY. TECHNICAL DOCUMENTATION: JOB ID: [id number] [employer]- All Rights Reserved
[2017-04-21 21:22] LABS: CREATINE KINASE MB 0.54 ng/mL (<4.55)
[2017-04-21 21:23] LABS: TROPONIN I < 0.012 ng/mL
[2017-04-21] MEDS: MONTELUKAST SODIUM 10 MG TABLET PO SCH (22:04)
[2017-04-22 05:25] LABS: CREATINE KINASE MB 0.43 ng/mL (<4.55)
[2017-04-22 05:29] LABS: TROPONIN I < 0.012 ng/mL
[2017-04-22] MEDS: 1/2 NORMAL SALINE 1,000 ML IV PRN (05:58)
[2017-04-22] MEDS: LANSOPRAZOLE 30 MG TAB.RAP.DR PO SCH (06:35)
[2017-04-22] MEDS: HEPARIN SOD (PORCINE) 5,000 UNIT/ML 1 ML SYRINGE SUBCUT SCH ×3 (06:35→21:14)
--- NOTE | 2017-04-22 08:35 | PDOC PROGRESS REPORT ---
Subjective Progress Note for:: 04/22/17 Subjective:: Patient was admitted because of the syncopal episode and dehydration's while working at an outside. Patient's currently doing well denied any chest pain denied any shortness of the breath. Physical Exam Vital Signs: Temp Pulse Resp BP Pulse Ox 98.0 F 52 L 20 151/59 H 97 04/22/17 00:09 04/22/17 06:57 04/22/17 00:09 04/22/17 00:09 04/22/17 00:09 Intake & Output 04/21/17 04/22/17 04/23/17 06:59 06:59 06:59 Intake Total 759 4557 Output Total 3625 Balance 759 932 Weight 80.2 kg 80.6 kg General appearance: PRESENT: no acute distress, well-developed, well-nourished Head exam: PRESENT: atraumatic, normocephalic Eye exam: PRESENT: conjunctiva pink, EOMI, PERRLA. ABSENT: scleral icterus Ear exam: PRESENT: normal external ear exam Mouth exam: PRESENT: moist, tongue midline Neck exam: PRESENT: full ROM. ABSENT: carotid bruit, JVD, lymphadenopathy, thyromegaly Respiratory exam: PRESENT: clear to auscultation raya Cardiovascular exam: PRESENT: RRR. ABSENT: diastolic murmur, rubs, systolic murmur Pulses: PRESENT: normal dorsalis pedis pul, +2 pedal pulses bilateral Vascular exam: PRESENT: normal capillary refill GI/Abdominal exam: PRESENT: normal bowel sounds, soft. ABSENT: distended, guarding, mass, organolmegaly, rebound, tenderness Rectal exam: PRESENT: deferred Neurological exam: PRESENT: alert, awake, oriented to person, oriented to place , oriented to time, oriented to situation, CN II-XII grossly intact. ABSENT: motor sensory deficit Psychiatric exam: PRESENT: appropriate affect, normal mood. ABSENT: homicidal ideation, suicidal ideation Skin exam: PRESENT: dry, intact, warm. ABSENT: cyanosis, rash Results Laboratory Results: 04/21/17 13:24 04/21/17 13:24 04/21/17 04/21/17 04/21/17 13:24 13:24 13:24 WBC 6.5 RBC 4.56 Hgb 12.6 L Hct 38.2 MCV 84 MCH 27.5 MCHC 32.9 RDW 14.2 H Plt Count 189 Sodium 138.5 Potassium 4.7 Chloride 102 Carbon Dioxide 24 Anion Gap 13 BUN 21 H Creatinine Cancelled 1.05 Est GFR ( Amer) Cancelled > 60 Est GFR (Non-Af Amer) Cancelled > 60 Glucose 317 H Calcium 9.3 Total Bilirubin 0.5 AST 20 ALT 44 Alkaline Phosphatase 106 Total Protein 6.2 L Albumin 3.3 L 04/21/17 04/21/17 04/21/17 13:24 13:24 20:44 Creatine Kinase 31 L 43 L CK-MB (CK-2) 0.42 Troponin I < 0.012 04/21/17 04/22/17 04/22/17 20:44 04:48 04:48 Creatine Kinase 40 L CK-MB (CK-2) 0.54 0.43 Troponin I < 0.012 < 0.012 Impressions: Chest X-Ray 04/21/17 00:00 IMPRESSION: NO ACUTE CARDIOPULMONARY PROCESS. NO SIGNIFICANT CHANGE FROM PRIOR STUDY. Knee X-Ray 04/21/17 00:00 IMPRESSION: NO RADIOGRAPHIC EVIDENCE OF ACUTE INJURY. Assessment & Plan - Diagnosis (1) Acute kidney failure Qualifiers: Acute renal failure type: unspecified Qualified Code(s): N17.9 - Acute kidney failure, unspecified Is this a current diagnosis for this admission?: YesPlan: Most likely from the dehydration's is currently resolved (2) Syncope Qualifiers: Syncope type: unspecified Qualified Code(s): R55 - Syncope and collapse Is this a current diagnosis for this admission?: YesPlan: Most likely a from the working outside schedule the echocardiogram. Will consult the cardiology with the patient's heart rate is running in the lower range (3) Coronary artery disease Qualifiers: Coronary Disease-Associated Artery/Lesion type: unspecified vessel or lesion type Is this a current diagnosis for this admission?: YesPlan: Patient see the cardiology at the [facility] currently on cardiac enzyme is negative (4) Hypertension Qualifiers: Hypertension type: essential hypertension Qualified Code(s): I10 - Essential (primary) hypertension Is this a current diagnosis for this admission?: YesPlan: Currently stable (5) Type 2 diabetes mellitus Qualifiers: Diabetes mellitus complication status: with unspecified complications Is this a current diagnosis for this admission?: YesPlan: Continues to current medications - Time Time Spent with patient: 15-24 minutes Medications reviewed and adjusted accordingly: Yes Anticipated discharge: Home Within: within 24 hours - Inpatient Certification Medical Necessity: Need Close Monitoring Due to Risk of Patient Decompensation Post Hospital Care: D/C Side Splitter Documentation - Plan Summary Plan Summary: We will stop the IV fluid get the patient's walk in the hallway and consult the cardiology for further evaluations
[2017-04-22] MEDS: INSULIN LISPRO 100 UNIT/ML 3 ML VIAL SUBCUT PRN ×2 (09:09→12:22)
[2017-04-22] MEDS: METOPROLOL TARTRATE 25 MG TABLET PO SCH ×2 (09:10→21:13)
[2017-04-22] MEDS: ISOSORBIDE MONONITRATE 60 MG TAB.ER.24H PO SCH (09:11)
[2017-04-22] MEDS: TAMSULOSIN HCL 0.4 MG CAP.SR.24H PO SCH (09:11)
[2017-04-22] MEDS: FINASTERIDE 5 MG TABLET PO SCH (09:11)
--- NOTE | 2017-04-22 09:44 | EKG REPORT ---
SEVERITY:- ABNORMAL ECG - SINUS RHYTHM LEFT ANTERIOR FASCICULAR BLOCK : Confirmed by: Jessi Ortega 22-Apr-2017 09:43:47
--- NOTE | 2017-04-22 12:58 | PDOC CONSULTATION ---
Consultation Consult Date: 04/22/17 Attending physician:: ZAIRE GEIGER Consult reason:: Syncope History of Present Illness Admission Date/PCP: 04/20/17 23:50 ZAIRE GEIGER MD Patient complains of: Syncope History of Present Illness: Patient is a 61 year old male, with a past medical history including diabetes and hypertension, who presents to the emergency department via EMS with his for syncope onset at 1330 today. Patient reports he was mowing the lawn on a riding mower in 80 degree heat from 0900 until about 1300 today, drinking water throughout, when he went inside to cool down and have some water. While he was drinking he started to become nauseated and lightheaded, tried to walk to the bathroom and then blacked out but says he was still able to hear everything. Patient reports he hit his forehead during the fall and is complaining of head pain and chest pain after hitting his chest as well as vomiting after the episode. I have been asked to evaluate this patient because of history of syncope. There is no prior history of syncopal spell. Patient does however describe history of coronary artery disease and stent procedure. Past Medical History Cardiac Medical History: Reports: Coronary Artery Disease - CARDIAC STENTS X5, Hyperlipidema, Hypertension Denies: Atrial Fibrillation, Congestive Heart Failure, Myocardial Infarction , Peripheral Vascular Disease, Pulmonary Embolism Pulmonary Medical History: Reports: Asthma, Bronchitis, Chronic Obstructive Pulmonary Disease (COPD), Pneumonia, Sleep Apnea Denies: Respiratory Failure, Tuberculosis Neurological Medical History: Denies: Seizures Endocrine Medical History: Reports: Diabetes Mellitus Type 1, Diabetes Mellitus Type 2 Denies: Hyperthyroidism, Hypothyroidism Renal/ Medical History: Denies: End Stage Renal Disease Malignancy Medical History: Denies: Leukemia, Lung Cancer GI Medical History: Reports: Gastroesophageal Reflux Disease, Hiatal Hernia Denies: Crohn's Disease Musculoskeltal Medical History: Reports: Arthritis - bursitis left shoulder, back bone spurs Denies: Fibromyalgia Psychiatric Medical History: Denies: Bipolar Disorder, Dementia, Depression - situational, Post Traumatic Stress Disorder Hematology: Reports: Anemia Infectious Medical History: Denies: HIV Past Surgical History Past Surgical History: Reports: Cardiac Catheterization - 5 stents, Cholecystectomy, Coronary Stent, Orthopedic Surgery - right leg, back surgery, Tonsillectomy Denies: Appendectomy, Colostomy, Coronary Artery Bypass Graft, Gastric Bypass Surgery, Herniorrhaphy, Pacemaker Social History Information Source: Patient Smoking Status: Former Smoker Number of Years Smokin Frequency of Alcohol Use: None Hx Recreational Drug Use: No Drugs: None Hx Prescription Drug Abuse: No - Advance Directive Resuscitation Status: Full Code Surrogate healthcare decision maker:: Patient's is the surrogate decision-maker Family History Family History: Reviewed & Not Pertinent, Arthritis, CAD, CVA, DM, Hyperlipidemia, Hypertension, Malignancy Parental Family History Reviewed: Yes Children Family History Reviewed: Yes Sibling(s) Family History Reviewed.: Yes Medication/Allergy Home Medications: Butalb/Acetaminophen/Caffeine [Fioricet (50-325-40 mg) Tablet] 1 tab PO BIDP PRN 04/15/17 Fexofenadine HCl [Cheri] 180 mg PO DAILYP PRN 04/15/17 Finasteride [Proscar 5 mg Tablet] 5 mg PO DAILY 04/15/17 Insulin Aspart [Novolog Flexpen] 20 unit SQ AC 04/15/17 Isosorbide Mononitrate [Imdur 60 mg Tablet.er] 60 mg PO DAILY 04/15/17 Montelukast Sodium [Singulair 10 mg Tablet] 10 mg PO QPM 04/15/17 Tamsulosin HCl [Flomax 0.4 mg Cap.sr] 0.4 mg PO QHS 04/15/17 Tramadol HCl [Ultram 50 mg Tablet] 50 mg PO BIDP PRN 04/15/17 Omeprazole 40 mg PO DAILY 04/20/17 Multivits-Minerals/FA/Lycopene [One Daily For Men Tablet] 1 tab PO DAILY Amlodipine Besylate [Norvasc 5 mg Tablet] 5 mg PO DAILY #30 tablet 04/23/17 Insulin Glargine,Hum.rec.anlog [Lantus] 55 unit SQ QHS #0 04/23/17 Metoprolol Tartrate [Lopressor 25 mg Tablet] 12.5 mg PO Q12 #0 04/23/17 Allergies/Adverse Reactions: clopidogrel bisulfate [From Plavix] Adverse Reaction (Severe, Verified 04/20/17 15:11) bleeding from ear/NOSE Review of Systems Review of Systems: Please see history of present illness and past medical history as wall. Constitutional: No fever or chills reported. Head : No recent chronic headaches, recent head injury. Eyes: No recent eye pain, diplopia, redness, discharge, acute visual changes. Ears: No recent chronic ear pain, acute hearing loss, ear discharge. Oral cavity: No recent ulcerations, bleeding, oral cavity discomfort. Neck: No recent acute neck pain reported. Hematologic: No recent easy bruising or bleeding or hematologic malignancy reported. Lymphatic: No recent lymphatic malignancy, chronic lymphadenopathy reported yet Cardiovascular system review: See history of present illness. Respiratory system review: No recent chronic cough, hemoptysis, blood clots in the lungs reported. Mild Shortness of breath on exertion Gastrointestinal system review: Negative for any recent acute or chronic abdominal pain, hematemesis, melena, recent change in bowel habits. Nausea vomiting as reported in HPI Genitourinary system review: No recent acute or chronic hematuria, flank pain, UTI etc. reported. Skin system review: Negative for any recent abnormal bruising, no rash, no pruritus reported. Neurologic: No prior history of strokes, mini strokes, seizure disorder. Patient presents with syncope but no prior syncope before. Psychologic: No history of major psychosis or major depression reported. Musculoskeletal: Minor aches and pains reported. No acute joint swelling reported. Endocrine: No recent polyuria, polydipsia, recent heat or cold intolerance. Physical Exam Vital Signs: Temp Pulse Resp BP Pulse Ox 97.5 F 54 L 16 151/73 H 95 04/22/17 07:22 04/22/17 07:22 04/22/17 07:22 04/22/17 07:22 04/22/17 07:22 Intake & Output 04/21/17 04/22/17 04/23/17 06:59 06:59 06:59 Intake Total 759 4557 Output Total 3625 Balance 759 932 Weight 80.2 kg 80.6 kg Exam: GENERAL: well-nourished and in no acute distress. Alert and oriented x3 HEAD: Atraumatic, normocephalic. EYES: Pupils equal round and reactive to light, extraocular movements intact, sclera anicteric, conjunctiva are normal. ENT: TMs normal, nares patent, oropharynx clear without exudates. Moist mucous membranes. No oral ulcerations or bleeding gums noted NECK: supple without lymphadenopathy. Trachea is central. No cervical or axillary lymphadenopathy noted. Carotids are 2+, JVD WNL LUNGS: Respiration seems nonlabored, no significant accessory muscle action noted. Breath sounds clear to auscultation bilaterally and equal noted. No wheezes rales or rhonchi noted. No significant dullness noted on percussion. CHEST: Palpation of the chest wall shows no significant chest wall tenderness. No other significant abnormalities noted. HEART: [place] [employer], No PSH, 1/6 SOURAV aortic area, 1/6 joshi systolic murmur mitral area, no rubs, no gallops. ABDOMEN: Soft, no significant tenderness appreciated, normoactive bowel sounds. No guarding, no rebound. No rigidity noted . No masses appreciated. EXTREMITIES: Pedal pulses are 1-2+, no calf tenderness noted. No clubbing or cyanosis.trace to 1+ pedal edema noted NEUROLOGICAL: Focused neurological exam showed no significant neurologic deficit. Normal speech, no focal weakness appreciated. PSYCH: Normal mood, normal affect. Judgment and insight within normal limits. SKIN: No significant ecchymosis, rash, ulcerations or signs of pruritus noted. MUSCULOSKELETAL EXAM: No significant joint swelling noted. Results Laboratory Results: 04/21/17 13:24 04/21/17 13:24 04/21/17 04/21/17 04/21/17 13:24 13:24 13:24 WBC 6.5 RBC 4.56 Hgb 12.6 L Hct 38.2 MCV 84 MCH 27.5 MCHC 32.9 RDW 14.2 H Plt Count 189 Sodium 138.5 Potassium 4.7 Chloride 102 Carbon Dioxide 24 Anion Gap 13 BUN 21 H Creatinine Cancelled 1.05 Est GFR ( Amer) Cancelled > 60 Est GFR (Non-Af Amer) Cancelled > 60 Glucose 317 H Calcium 9.3 Total Bilirubin 0.5 AST 20 ALT 44 Alkaline Phosphatase 106 Total Protein 6.2 L Albumin 3.3 L 04/21/17 04/21/17 04/21/17 13:24 13:24 20:44 Creatine Kinase 31 L 43 L CK-MB (CK-2) 0.42 Troponin I < 0.012 04/21/17 04/22/17 04/22/17 20:44 04:48 04:48 Creatine Kinase 40 L CK-MB (CK-2) 0.54 0.43 Troponin I < 0.012 < 0.012 EKG Comments: Sinus rhythm but no acute ST-T wave changes are noted. Impressions: Chest X-Ray 04/21/17 00:00 IMPRESSION: NO ACUTE CARDIOPULMONARY PROCESS. NO SIGNIFICANT CHANGE FROM PRIOR STUDY. Knee X-Ray 04/21/17 00:00 IMPRESSION: NO RADIOGRAPHIC EVIDENCE OF ACUTE INJURY. Assessment & Plan - Diagnosis (1) Syncope Qualifiers: Syncope type: unspecified Qualified Code(s): R55 - Syncope and collapse Is this a current diagnosis for this admission?: Yes (2) Coronary artery disease Qualifiers: Coronary Disease-Associated Artery/Lesion type: unspecified vessel or lesion type Is this a current diagnosis for this admission?: Yes (3) Hypertension Qualifiers: Hypertension type: essential hypertension Qualified Code(s): I10 - Essential (primary) hypertension Is this a current diagnosis for this admission?: Yes (4) Type 2 diabetes mellitus Qualifiers: Diabetes mellitus complication status: with unspecified complications Is this a current diagnosis for this admission?: Yes (5) Dehydration Is this a current diagnosis for this admission?: Yes - Notes Notes: 2D echo was ordered and results reviewed. EKG ordered and results reviewed. Syncope: Most likely related to dehydration leading to precipitation of neurocardiogenic syncope. Patient had prodrome of nausea and vomiting. Patient has been advised to avoid dehydration. Preliminary report of 2D echo shows well-preserved LV EF and no significant stenotic valvular lesions noted. Coronary artery disease: Currently EKG negative for any significant ischemic changes or any positive enzymatic abnormalities. Currently stable. Hypertension: Reasonably well controlled. Blood pressure goal in this patient is 135/85 or less. This was discussed with the patient. Currently blood pressure under reasonable control. Diabetes: Recommend good control of blood sugar. However should avoid any hypoglycemia. Patient being expertly managed by primary care MAlvarez. Dehydration: Patient currently dehydrated. Agree with IV fluids. We will repeat EKG to look for any evolving changes. Patient has been recommended to start CPAP therapy. Patient claims he has a diagnosis of sleep apnea. Discussed that sleep apnea does increase risk of coronary artery disease and also vasovagal syncope. - Time Time Spent: 30 to 50 Minutes - CODE STATUS was discussed, patient remains full code. Surrogate decision-maker patient's . Multiple medical problems were addressed. More than 50% of the time spent coordinating care, discussing management plans with involved caregivers. Management plans discussed with involved personnels. Medical decision making was of moderate to high complexity , patient's has multiple comorbidities. Medications reviewed and adjusted accordingly: Yes
--- NOTE | 2017-04-22 18:50 | XCELERA REPORT ---
[address] [address] Transthoracic Echocardiogram Report Name: TAHIR FOURNIER Age: 61 yrs Gender: Male : 1955 Patient Status: Inpatient Patient Location: 3S\S\327\S\A Study Date: 04/22/2017 10:07 AM Height: 69 in Weight: 176 lb BSA: 2.0 m2 Procedure: A complete two-dimensional transthoracic echocardiogram was performed (2D, M-mode, spectral and color flow Doppler). The study was technically adequate with some images being suboptimal in quality. Reason For Study: syncope Ordering Physician: JO VALENCIA Performed By: Lucy Schultz Interpretation Summary The left ventricular ejection fraction is normal. Doppler measurements suggest impaired left ventricular relaxation, which is associated with grade I/IV or mild diastolic dysfunction There is mild concentric left ventricular hypertrophy. The left ventricle is grossly normal size. Wall motion cannot be accurately commented on, but no definite regional wall motion abnormalities noted. The right ventricle is mildly dilated. The left atrium is mildly dilated. The right atrium is mildly dilated. There is a mild amount of mitral regurgitation There is no mitral valve stenosis. No aortic regurgitation is present. There is no aortic valve stenosis There is a trace to mild amount of tricuspid regurgitation There is mild pulmonary hypertension by echo Right ventricular systolic pressure is estimated to be elevated at 30- 40mmHg. There is no pericardial effusion. MMode/2D Measurements \T\ Calculations RVDd: 3.2 cm LVIDd: 5.0 cmFS: 36.0 % Ao root diam: 3.2 cm IVSd: 1.1 cm LVIDs: 3.2 cmEDV(Teich): 120.6 ml LVPWd: 1.2 cmESV(Teich): 41.9 ml Ao root area: 8.2 cm2 EF(Teich): 65.3 % LVOT diam: 2.2 cm LVOT area: 3.8 cm2 Doppler Measurements \T\ Calculations MV E max geovanni: MV dec slope: Ao V2 max: LV V1 max P.7 cm/sec 511.7 cm/sec2 230.0 cm/sec 4.2 mmHg MV A max geovanni: MV dec time: Ao max PG: LV V1 max: 62.1 cm/sec 0.20 sec 21.2 mmHg 102.6 cm/sec MV E/A: 1.7 ZEESHAN(V,D): 1.7 cm2 PA V2 max: PI end-d geovanni: TR max geovanni: 108.6 cm/sec 125.1 cm/sec 267.3 cm/sec PA max P.7 mmHg TR max P.6 mmHg Left Ventricle The left ventricle is grossly normal size. There is mild concentric left ventricular hypertrophy. The left ventricular ejection fraction is normal. Doppler measurements suggest impaired left ventricular relaxation, which is associated with grade I/IV or mild diastolic dysfunction. Wall motion cannot be accurately commented on, but no definite regional wall motion abnormalities noted. Right Ventricle The right ventricle is mildly dilated. There is normal right ventricular wall thickness. The right ventricular systolic function is normal. Atria The right atrium is mildly dilated. The left atrium is mildly dilated. Interarterial septum not well visualized and not well dopplered. Cannot comment on ASD/PFO presence. Mitral Valve The mitral valve is grossly normal. There is no mitral valve stenosis. There is a mild amount of mitral regurgitation. Aortic Valve The aortic valve is not well visualized secondary to technical limitations. There is no aortic valve stenosis. No aortic regurgitation is present. Tricuspid Valve The tricuspid valve is not well visualized, but is grossly normal. There is no tricuspid stenosis. There is a trace to mild amount of tricuspid regurgitation. There is mild pulmonary hypertension by echo. Right ventricular systolic pressure is estimated to be elevated at 30-40mmHg. Pulmonic Valve The pulmonic valve is not well visualized. Great Vessels The aortic root is not well visualized. The inferior vena cava was not well visualized. Effusions There is no pericardial effusion. : JO VALENCIA > Jessi Ortega
[2017-04-22] MEDS: MONTELUKAST SODIUM 10 MG TABLET PO SCH (21:13)
[2017-04-22] MEDS: INSULIN GLARGINE,HUM.REC.ANLOG 300 UNIT/3 ML INSULN.PEN SUBCUT SCH (21:24)
[2017-04-23] MEDS: INSULIN LISPRO 100 UNIT/ML 3 ML VIAL SUBCUT PRN ×2 (00:05→07:33)
[2017-04-23] MEDS: LANSOPRAZOLE 30 MG TAB.RAP.DR PO SCH (05:36)
[2017-04-23] MEDS: HEPARIN SOD (PORCINE) 5,000 UNIT/ML 1 ML SYRINGE SUBCUT SCH (05:36)
[2017-04-23 10:06] LABS: ANION GAP 14 (5-19); BLOOD UREA NITROGEN 21 mg/dL (7-20); CALCIUM 10.3 mg/dL (8.4-10.2); CARBON DIOXIDE 22 mmol/L (22-30); CHLORIDE 101 mmol/L (98-107); CREATININE RESULT 0.85 mg/dL (0.52-1.25); GLUCOSE 289 mg/dL (75-110); SODIUM 137.3 mmol/L (137-145)
[2017-04-23 10:07] LABS: POTASSIUM 4.9 mmol/L (3.6-5.0)
[2017-04-23] MEDS: ISOSORBIDE MONONITRATE 60 MG TAB.ER.24H PO SCH (10:17)
[2017-04-23] MEDS: FINASTERIDE 5 MG TABLET PO SCH (10:17)
[2017-04-23] MEDS: TAMSULOSIN HCL 0.4 MG CAP.SR.24H PO SCH (10:17)
[2017-04-23] MEDS: METOPROLOL TARTRATE 25 MG TABLET PO SCH (10:21)
[2017-04-23 10:37] VITALS: BP 188/76
--- NOTE | 2017-04-23 11:04 | EKG REPORT ---
SEVERITY:- OTHERWISE NORMAL ECG - SINUS BRADYCARDIA : Confirmed by: Jessi Ortega 23-Apr-2017 11:03:42
--- NOTE | 2017-04-23 14:20 | PDOC DISCHARGE SUMMARY ---
General - Admit/Disc Date/PCP Admission Date/Primary Care Provider: 04/20/17 23:50 ZAIRE GEIGER MD Discharge Date: 04/23/17 - Discharge Diagnosis (1) Acute kidney failure Is this a current diagnosis for this admission?: YesSummary: Currently all resolved (2) Syncope Is this a current diagnosis for this admission?: YesSummary: Most likely are due to the dehydration and working outside otherwise all other workup is negative (3) Coronary artery disease Is this a current diagnosis for this admission?: YesSummary: Stable (4) Hypertension Is this a current diagnosis for this admission?: YesSummary: Still holding the lisinoprilAnd add the Norvasc 5 mg dailyAnd decreased the Coreg half dose due to the heart rate (5) Type 2 diabetes mellitus Is this a current diagnosis for this admission?: YesSummary: Continues to insulin and hold the metformin - Additional Information Resuscitation Status: Full Code Discharge Diet: Diabetic Discharge Activity: Activity As Tolerated Home Medications: Butalb/Acetaminophen/Caffeine [Fioricet (50-325-40 mg) Tablet] 1 tab PO BIDP PRN 04/15/17 Fexofenadine HCl [Cheri] 180 mg PO DAILYP PRN 04/15/17 Finasteride [Proscar 5 mg Tablet] 5 mg PO DAILY 04/15/17 Insulin Aspart [Novolog Flexpen] 20 unit SQ AC 04/15/17 Isosorbide Mononitrate [Imdur 60 mg Tablet.er] 60 mg PO DAILY 04/15/17 Montelukast Sodium [Singulair 10 mg Tablet] 10 mg PO QPM 04/15/17 Tamsulosin HCl [Flomax 0.4 mg Cap.sr] 0.4 mg PO QHS 04/15/17 Tramadol HCl [Ultram 50 mg Tablet] 50 mg PO BIDP PRN 04/15/17 Omeprazole 40 mg PO DAILY 04/20/17 Multivits-Minerals/FA/Lycopene [One Daily For Men Tablet] 1 tab PO DAILY Amlodipine Besylate [Norvasc 5 mg Tablet] 5 mg PO DAILY #30 tablet 04/23/17 Insulin Glargine,Hum.rec.anlog [Lantus] 55 unit SQ QHS #0 04/23/17 Metoprolol Tartrate [Lopressor 25 mg Tablet] 12.5 mg PO Q12 #0 04/23/17 History of Present Illness History of Present Illness: TAHIR FOURNIER is a 61 year old male 61-year-old male came to the ER due to the dehydration's while working outside and not feeling well and possible syncopal episode and patient was admitting in the hospital for acute renal failure and dehydration's Hospital Course Hospital Course: This 59-year-old male was recently discharged from the hospital due to the nausea vomiting and acute renal failure went home and was working outside in the yard and the hot weather and patient started developing the dizziness and not feeling wellIn patients came to the ER patient was found dehydrated in acute renal failure. Patient was given IV fluid and patient's response very well Patient was running low heart rate and cardiology was consulted and echocardiogram was done and was all stable Patient's otherwise denied any other symptoms Physical Exam Vital Signs: Temp Pulse Resp BP Pulse Ox 97.5 F 53 L 16 188/76 H 94 04/23/17 10:34 04/23/17 10:34 04/23/17 10:34 04/23/17 10:34 04/23/17 10:34 Intake & Output 04/22/17 04/23/17 04/24/17 06:59 06:59 06:59 Intake Total 4557 2040 Output Total 3625 1000 Balance 932 1040 Weight 80.6 kg 77.6 kg General appearance: PRESENT: no acute distress, well-developed, well-nourished Head exam: PRESENT: atraumatic, normocephalic Eye exam: PRESENT: conjunctiva pink, EOMI, PERRLA. ABSENT: scleral icterus Ear exam: PRESENT: normal external ear exam Mouth exam: PRESENT: moist, tongue midline Neck exam: PRESENT: full ROM. ABSENT: carotid bruit, JVD, lymphadenopathy, thyromegaly Respiratory exam: PRESENT: clear to auscultation raya Cardiovascular exam: PRESENT: RRR. ABSENT: diastolic murmur, rubs, systolic murmur Pulses: PRESENT: normal dorsalis pedis pul, +2 pedal pulses bilateral Vascular exam: PRESENT: normal capillary refill GI/Abdominal exam: PRESENT: normal bowel sounds, soft. ABSENT: distended, guarding, mass, organolmegaly, rebound, tenderness Rectal exam: PRESENT: deferred Musculoskeletal exam: PRESENT: ambulatory Neurological exam: PRESENT: alert, awake, oriented to person, oriented to place , oriented to time, oriented to situation, CN II-XII grossly intact. ABSENT: motor sensory deficit Psychiatric exam: PRESENT: appropriate affect, normal mood. ABSENT: homicidal ideation, suicidal ideation Skin exam: PRESENT: dry, intact, warm. ABSENT: cyanosis, rash Results Laboratory Results: 04/21/17 13:24 04/23/17 09:37 04/23/17 04/23/17 04/23/17 04:27 06:16 09:37 Sodium Cancelled Cancelled 137.3 Potassium Cancelled Cancelled 4.9 Chloride Cancelled Cancelled 101 Carbon Dioxide Cancelled Cancelled 22 Anion Gap Cancelled Cancelled 14 BUN Cancelled Cancelled 21 H Creatinine Cancelled Cancelled 0.85 Est GFR ( Amer) Cancelled Cancelled > 60 Est GFR (Non-Af Amer) Cancelled Cancelled > 60 Glucose Cancelled Cancelled 289 H Calcium Cancelled Cancelled 10.3 H 04/21/17 04/21/17 04/21/17 13:24 13:24 20:44 Creatine Kinase 31 L 43 L CK-MB (CK-2) 0.42 Troponin I < 0.012 04/21/17 04/22/17 04/22/17 20:44 04:48 04:48 Creatine Kinase 40 L CK-MB (CK-2) 0.54 0.43 Troponin I < 0.012 < 0.012 Impressions: Chest X-Ray 04/21/17 00:00 IMPRESSION: NO ACUTE CARDIOPULMONARY PROCESS. NO SIGNIFICANT CHANGE FROM PRIOR STUDY. Knee X-Ray 04/21/17 00:00 IMPRESSION: NO RADIOGRAPHIC EVIDENCE OF ACUTE INJURY. Plan Time Spent: Greater than 30 Minutes - Discharge home with the stable conditions patient's clear by the cardiology patient's p.o. intake is good and the patient' s walk in the hallway without any problems
--- NOTE | 2017-04-23 19:30 | PDOC PROGRESS REPORT ---
Subjective Progress Note for:: 04/23/17 Subjective:: Patient seems to be doing better with gradual improvement. Pt is denying any chest arm or neck discomfort. Patient denying any PND, orthopnea. Patient denied any sustained palpitations, dizziness, syncope, near syncope. Patient denying any fever chills. Patient denying any other significant discomfort. Patient is maintaining sinus rhythm. Intermittent mild sinus bradycardia noted. Review of systems: Rest review of systems negative. Medications: Medications have been reviewed. Physical Exam Vital Signs: Temp Pulse Resp BP Pulse Ox 97.5 F 53 L 16 188/76 H 94 04/23/17 10:34 04/23/17 10:34 04/23/17 10:34 04/23/17 10:34 04/23/17 10:34 Intake & Output 04/22/17 04/23/17 04/24/17 06:59 06:59 06:59 Intake Total 4557 2040 Output Total 3625 1000 Balance 932 1040 Weight 80.6 kg 77.6 kg Exam: GENERAL: well-nourished and in no acute distress. Alert and oriented x3 HEAD: Atraumatic, normocephalic. EYES: Pupils equal round and reactive to light, extraocular movements intact, sclera anicteric, conjunctiva are normal. ENT: TMs normal, nares patent, oropharynx clear without exudates. Moist mucous membranes. No oral ulcerations or bleeding gums noted NECK: supple without lymphadenopathy. Trachea is central. No cervical or axillary lymphadenopathy noted. Carotids are 2+, JVD WNL LUNGS: Respiration seems nonlabored, no significant accessory muscle action noted. Breath sounds clear to auscultation bilaterally and equal noted. No wheezes rales or rhonchi noted. No significant dullness noted on percussion. CHEST: Palpation of the chest wall shows no significant chest wall tenderness. No other significant abnormalities noted. HEART: [place] CLAIMS REPRESENTATIVE, No PSH, 1/6 SOURAV aortic area, 1/6 joshi systolic murmur mitral area, no rubs, no gallops. ABDOMEN: Soft, no significant tenderness appreciated, normoactive bowel sounds. No guarding, no rebound. No rigidity noted . No masses appreciated. EXTREMITIES: Pedal pulses are 1-2+, no calf tenderness noted. No clubbing or cyanosis.trace to 1+ pedal edema noted NEUROLOGICAL: Focused neurological exam showed no significant neurologic deficit. Normal speech, no focal weakness appreciated. PSYCH: Normal mood, normal affect. Judgment and insight within normal limits. SKIN: No significant ecchymosis, rash, ulcerations or signs of pruritus noted. MUSCULOSKELETAL EXAM: No significant joint swelling noted. Results Laboratory Results: 04/21/17 13:24 04/23/17 09:37 04/23/17 04/23/17 04/23/17 04:27 06:16 09:37 Sodium Cancelled Cancelled 137.3 Potassium Cancelled Cancelled 4.9 Chloride Cancelled Cancelled 101 Carbon Dioxide Cancelled Cancelled 22 Anion Gap Cancelled Cancelled 14 BUN Cancelled Cancelled 21 H Creatinine Cancelled Cancelled 0.85 Est GFR ( Amer) Cancelled Cancelled > 60 Est GFR (Non-Af Amer) Cancelled Cancelled > 60 Glucose Cancelled Cancelled 289 H Calcium Cancelled Cancelled 10.3 H 04/21/17 04/21/17 04/21/17 13:24 13:24 20:44 Creatine Kinase 31 L 43 L CK-MB (CK-2) 0.42 Troponin I < 0.012 04/21/17 04/22/17 04/22/17 20:44 04:48 04:48 Creatine Kinase 40 L CK-MB (CK-2) 0.54 0.43 Troponin I < 0.012 < 0.012 EKG Comments: EKG reviewed. Shows sinus rhythm no acute ST-T wave changes noted. Telemetry strips reviewed. Mild intermittent sinus bradycardia noted. No significant tachycardia or bradycardia arrhythmias noted. Impressions: Chest X-Ray 04/21/17 00:00 IMPRESSION: NO ACUTE CARDIOPULMONARY PROCESS. NO SIGNIFICANT CHANGE FROM PRIOR STUDY. Knee X-Ray 04/21/17 00:00 IMPRESSION: NO RADIOGRAPHIC EVIDENCE OF ACUTE INJURY. Assessment & Plan - Diagnosis (1) Syncope Qualifiers: Syncope type: unspecified Qualified Code(s): R55 - Syncope and collapse Is this a current diagnosis for this admission?: Yes (2) Coronary artery disease Qualifiers: Coronary Disease-Associated Artery/Lesion type: unspecified vessel or lesion type Is this a current diagnosis for this admission?: Yes (3) Hypertension Qualifiers: Hypertension type: essential hypertension Qualified Code(s): I10 - Essential (primary) hypertension Is this a current diagnosis for this admission?: Yes (4) Type 2 diabetes mellitus Qualifiers: Diabetes mellitus complication status: with unspecified complications Is this a current diagnosis for this admission?: Yes (5) Dehydration Is this a current diagnosis for this admission?: Yes - Notes Notes: Syncope: Most likely related to dehydration leading to precipitation of neurocardiogenic syncope. Patient had prodrome of nausea and vomiting. Patient has been advised to avoid dehydration. Discussed 2D echo report which shows well-preserved LV EF and no significant stenotic valvular lesions noted. Coronary artery disease: Currently EKG negative for any significant ischemic changes or any positive enzymatic abnormalities. Currently stable. Hypertension: Reasonably well controlled. Blood pressure goal in this patient is 135/85 or less. This was discussed with the patient. Currently blood pressure under reasonable control. Diabetes: Recommend good control of blood sugar. However should avoid any hypoglycemia. Patient being expertly managed by primary care M.D.. Dehydration: Patient currently dehydrated. Agree with IV fluids. We will repeat EKG to look for any evolving changes. Patient has been recommended to start CPAP therapy. Patient claims he has a diagnosis of sleep apnea. Discussed that sleep apnea does increase risk of coronary artery disease and also vasovagal syncope. - Time Time with patient: 15-25 minutes - CODE STATUS was discussed, patient remains full code. Surrogate decision-maker unchanged. Multiple medical problems were addressed. More than 50% of the time spent coordinating care, discussing management plans with involved caregivers. Management plans discussed with involved personnels. Medical decision making was of moderate to high complexity , patient's has multiple comorbidities. Medications reviewed and adjusted accordingly: Yes
== END 2017-04-23 11:04 | disposition home or self-care (01) | DRG 684 ==
LOC: ER 14:54 → EH 18:41 → UNDOADMIN 18:41 → 3S 23:10 → EH 23:10 → INTOOBSV 23:50 → OBSVTOIN 23:50 → 3S 23:50 → 4N 04-22 22:48
PROVIDERS: ADMIT Family Medicine; ATTEND Family Medicine
DX: N17.9 Acute kidney failure, unspecified (principal); I25.10 Atherosclerotic heart disease of native coronary artery without angina pectoris; I10 Essential (primary) hypertension; E11.9 Type 2 diabetes mellitus without complications; E86.0 Dehydration; E78.5 Hyperlipidemia, unspecified; J44.9 Chronic obstructive pulmonary disease, unspecified; G47.30 Sleep apnea, unspecified; K21.9 Gastro-esophageal reflux disease without esophagitis; K44.9 Diaphragmatic hernia without obstruction or gangrene; M46.00 Spinal enthesopathy, site unspecified; M19.90 Unspecified osteoarthritis, unspecified site; D64.9 Anemia, unspecified; Z90.49 Acquired absence of other specified parts of digestive tract; Z95.5 Presence of coronary angioplasty implant and graft; Z79.4 Long term (current) use of insulin; Z79.899 Other long term (current) drug therapy; Z88.8 Allergy status to other drugs, medicaments and biological substances; Z87.891 Personal history of nicotine dependence; Z82.61 Family history of arthritis; Z82.49 Family history of ischemic heart disease and other diseases of the circulatory system; Z82.3 Family history of stroke; Z83.3 Family history of diabetes mellitus
CPT/HCPCS: 36415; 71020; 80048; 80053; 81001; 82550; 82553; 82962; 84484; 85025; 85027; 85610; 85730; 93005; 93010; 93306; 96361; 96365; 99285; J1644; J1815; J3490; J7030; J7120

== ENCOUNTER 2017-05-01 08:13 | Day surgery (SDC) | payer MEDICAID ==
--- NOTE | 2017-04-30 09:27 | HISTORY AND PHYSICAL E ---
History and Physical NAME: TAHIR FOURNIER : 1955 AGE: 61Y ADMITTED: 05/01/2017 ROOM: The patient was admitted recently to [facility] for dehydration and diabetes. He is being evaluated regarding anemia. We will arrange for upper endoscopy and later on consider colonoscopy. The patient did have cholecystectomy, coronary artery disease with a stent. He quit smoking. REVIEW OF SYSTEMS: ENDOCRINE: Diabetes. GASTROINTESTINAL: CVA. CARDIAC: Coronary artery disease. RESPIRATORY: Asthma, COPD. FAMILY HISTORY: The patient's father had alcohol disease. His mom had hemorrhage. PHYSICAL EXAMINATION: VITAL SIGNS: Blood pressure is 120/60, pulse 80, respirations 20, temperature 98. HEAD, EYES, EARS, NOSE, THROAT: Normal. ABDOMEN: Soft. NEUROLOGIC EXAM: Negative. CONCLUSION: 1. Anemia. 2. Hemorrhoids. 3. Diarrhea. 4. Atypical chest pain. 5. Coronary artery disease. 6. Cholecystectomy. 7. Reflux. PLAN: Upper scope. DICTATING PHYSICIAN: EARLENE VITALE M.D. [id number] Y#: [id number] ID: [id number] JOB#: [id number] ACCT: [id number] cc:EARLENE VITALE M.D. >
[~2017-05-01 08:13] MED LIST: EPINEPHRINE INJ 1 MG/10 ML DISP.SYRIN ONE; FENTANYL CITRATE INJ/PF 100 MCG/2 ML AMPUL ONE; FLUMAZENIL INJ 0.5 MG/5 ML VIAL IV ONE; GLYCOPYRROLATE INJ 0.4 MG/2 ML VIAL ONE; MIDAZOLAM 2 MG/2 ML INJ ONE; NALOXONE HCL INJ/PF 0.4 MG/1 ML SDV ONE; ONDANSETRON HCL INJ/PF 4 MG/2 ML SDV ONE
[2017-05-01 10:27] VITALS: BP 155/74
--- NOTE | 2017-05-01 10:41 | DISCHARGE SUMMARY E ---
Discharge Summary NAME: TAHIR FOURNIER : 1955 AGE: 61Y ADMITTED: 05/01/2017 DISCHARGED: HOSPITAL COURSE: The patient is 61 years old, presented with anemia. Patient underwent upper endoscopy today. It shows no evidence of ulcers. He did have some erosions in distal stomach. Hiatus hernia with question of Lei. Lab arranged for colonoscopy. PLAN: Lab studies. Soft diet. Consideration for upper endoscopy followup after 1 year for evaluation of reflux and hernia. Patient to see us in the office in the next few days. DICTATING PHYSICIAN: EARLENE VITALE M.D. [id number] PHY#: [id number] ID: [id number] JOB#: [id number] ACCT: [id number] cc:Kanu HENNESSY M.D. >
--- NOTE | 2017-05-01 10:41 | OPERATIVE REPORT E ---
Operative Report NAME: TAHIR FOURNIER : 1955 AGE: 61Y DATE OF SURGERY: 05/01/2017 ROOM: PREOPERATIVE DIAGNOSIS: Anemia. POSTOPERATIVE DIAGNOSIS: Hiatus hernia 1 cm size, thickening irregular mucosa at the GE junction, reflux. No stricture, no ulcers, no malignancy. Small hernia with mild esophagitis. SURGEON: EARLENE VITALE M.D. PROCEDURE: Gastroscopy: Prepyloric erosions, no ulcers, mild gastritis, H. pylori. Gastric biopsy obtained. Duodenoscopy: Duodenal bulb, descending duodenum, no ulcers, no bleeding. CONCLUSION: No bleeding. No ulcers. No malignancy. Hiatus hernia with reflux and gastric mucosa protruding to the distal esophagus. Question early Lei is a consideration. No ulcers, gastritis. PLAN: Consider upper endoscopy after one year to further evaluate the reflux and hiatus hernia. Patient tolerated the procedure well and discharged to the room in stable condition. Plan lab studies arranged for colonoscopy. DICTATING PHYSICIAN: EARLENE VITALE M.D. [id number] [facility]#: [id number] ID: [id number] JOB#: [id number] ACCT: [id number] cc:Kanu HENNESSY M.D. >
[2017-05-01 10:46] LABS: ABSOLUTE BASOPHILS # (AUTO) 0.1 10^3/uL (0.0-0.2); ABSOLUTE EOSINOPHILS # (AUTO) 0.2 10^3/uL (0.0-0.6); ABSOLUTE LYMPHOCYTES (AUTO) 1.9 10^3/uL (0.5-4.7); ABSOLUTE MONOCYTES (AUTO) 0.4 10^3/uL (0.1-1.4); ABSOLUTE NEUT (AUTO) 2.7 10^3/uL (1.7-8.2); BASOPHILS % (AUTO) 1.1 % (0-2); EOSINOPHILS % (AUTO) 3.8 % (0-6); LYMPHOCYTES % (AUTO) 36.9 % (13-45); MEAN CORPUSCULAR HEMOGLOBIN 27.2 pg (27.0-33.4); MEAN CORPUSCULAR HGB CONC 32.5 g/dL (32.0-36.0); MEAN CORPUSCULAR VOLUME 84 fl (80-97); MONOCYTES % (AUTO) 7.4 % (3-13); RED BLOOD COUNT 4.79 10^6/uL (4.35-5.55); RED CELL DISTRIBUTION WIDTH 14.4 % (11.5-14.0); SEGMENTED NEUTROPHILS % (AUTO) 50.8 % (42-78); WHITE BLOOD COUNT 5.3 10^3/uL (4.0-10.5)
[2017-05-01 11:03] LABS: ALANINE AMINOTRANSFERASE 37 U/L (21-72); ALBUMIN 3.6 g/dL (3.5-5.0); ALKALINE PHOSPHATASE 122 U/L (38-126); ANION GAP 9 (5-19); ASPARTATE AMINO TRANSFERASE 19 U/L (17-59); BILIRUBIN,DIRECT 0.3 mg/dL (0.0-0.4); BILIRUBIN,TOTAL 0.6 mg/dL (0.2-1.3); BLOOD UREA NITROGEN 15 mg/dL (7-20); CALCIUM 8.5 mg/dL (8.4-10.2); CARBON DIOXIDE 24 mmol/L (22-30); CHLORIDE 104 mmol/L (98-107); CREATININE RESULT 0.85 mg/dL (0.52-1.25); GLUCOSE 222 mg/dL (75-110); IRON 71.6 ug/dL (49-181); POTASSIUM 4.3 mmol/L (3.6-5.0); SODIUM 136.9 mmol/L (137-145); TOTAL PROTEIN 6.6 g/dL (6.3-8.2)
[2017-05-01 11:32] LABS: CARCINOEMBRYONIC ANTIGEN 2.1 ng/mL (<3.0)
== END 2017-05-01 10:45 | disposition home or self-care (01) ==
LOC: END 08:13
PROVIDERS: ATTEND Specialist
PROC: 0DB68ZX Excision of Stomach, Via Natural or Artificial Opening Endoscopic, Diagnostic (ICD-10-PCS; principal; 2017-05-01 09:00)
DX: K44.9 Diaphragmatic hernia without obstruction or gangrene (principal); K21.0 Gastro-esophageal reflux disease with esophagitis; K25.9 Gastric ulcer, unspecified as acute or chronic, without hemorrhage or perforation; K29.50 Unspecified chronic gastritis without bleeding; J44.9 Chronic obstructive pulmonary disease, unspecified; E11.9 Type 2 diabetes mellitus without complications; I25.10 Atherosclerotic heart disease of native coronary artery without angina pectoris; Z87.891 Personal history of nicotine dependence; Z98.61 Coronary angioplasty status
CPT/HCPCS: 43239; 36415; 82306; 82962; 82607; 82378; 82728; 83540; 85025; 80053; 88342 ×2; 88305 ×2; J2250; J3010; J2405; J0171; J2310; J3490

== ENCOUNTER → 2017-05-01 | Outpatient (CLI) | payer MEDICAID ==
--- NOTE | 2017-05-01 12:37 | RADIOLOGY REPORT (SQ) ---
EXAM DESCRIPTION: CHEST PA/LATERAL COMPLETED DATE/TIME: 05/01/2017 11:33 am REASON FOR STUDY: MYALGIA COMPARISON: Two-view chest 04/21/2017, 11/02/2016, 12/12/2015 EXAM PARAMETERS: NUMBER OF VIEWS: two views TECHNIQUE: Digital Frontal and Lateral radiographic views of the chest acquired. RADIATION DOSE: NA LIMITATIONS: none FINDINGS: LUNGS AND PLEURA: No opacities, masses or pneumothorax. No pleural effusion. MEDIASTINUM AND HILAR STRUCTURES: No masses or contour abnormalities. HEART AND VASCULAR STRUCTURES: Stable mild cardiomegaly BONES: No acute findings. HARDWARE: None in the chest. OTHER: No other significant finding. IMPRESSION: NO SIGNIFICANT RADIOGRAPHIC FINDING IN THE CHEST. TECHNICAL DOCUMENTATION: JOB ID: [id number] [employer]- All Rights Reserved
== END ==
LOC: OD 10:58
PROVIDERS: ATTEND Physician Assistant
DX: M79.1 Myalgia (principal)
CPT/HCPCS: 71020

== ENCOUNTER 2017-05-24 08:26 | Day surgery (SDC) | payer MEDICAID ==
--- NOTE | 2017-05-13 10:06 | HISTORY AND PHYSICAL E ---
History and Physical NAME: TAHIR FOURNIER : 1955 AGE: 61Y ADMITTED: 05/24/2017 ROOM: REFERRING PHYSICIAN: Dr. Giles. CHIEF COMPLAINT: Colon screening. HISTORY: Patient does have history of rectosigmoid polyps, too small to biopsy, 2008. Colonoscopy done in 2011 showing hemorrhoids, diarrhea, reflux. Patient did have history of COPD, reflux. He does have history of anemia. Hemoglobin . Question hemolysis. MEDICATIONS: 1. Metoprolol. 2. Insulin. 3. Imodium. ALLERGIES: 1. CODEINE. 2. PENICILLIN. REVIEW OF SYSTEMS: ENDOCRINE: Diabetes. GASTROINTESTINAL: Colon screening. RESPIRATORY: Asthma. PHYSICAL EXAMINATION: VITAL SIGNS: Blood pressure 120/60, pulse 80, respirations 18, temperature is 98. HEAD, EYES, EARS, NOSE, THROAT: Normal. ABDOMEN: Soft. NEUROLOGIC: Exam negative. CONCLUSION: COLON SCREENING. PLAN: Colonoscopy, exam 05/24/2017. DICTATING PHYSICIAN: EARLENE VITALE M.D. [id number] PHY#: [id number] ID: [id number] JOB#: [id number] ACCT: [id number] cc:EARLENE VITALE M.D. >
[~2017-05-24 08:26] MED LIST changes: +GLUCAGON,HUMAN RECOMB 1 MG INJ ONE; +LIDOCAINE 2% JELLY 30 ML TUBE ONE
[2017-05-24 10:39] VITALS: BP 177/78
--- NOTE | 2017-05-24 11:14 | OPERATIVE REPORT E ---
Operative Report NAME: TAHIR FOURNIER : 1955 AGE: 61Y DATE OF SURGERY: 05/24/2017 ROOM: PREOPERATIVE DIAGNOSIS: Colon screening. POSTOPERATIVE DIAGNOSES: 1. External hemorrhoids, mild. 2. Sigmoid and descending colon diverticulosis, mild. 3. Diminutive rectosigmoid polyps 1-2 mm in size each, benign, small to biopsy. PROCEDURE: Colonoscopy to the cecum. SURGEON: EARLENE VITALE M.D. ANESTHESIA: Versed 2 mg and Fentanyl 100 mcg. TISSUE REMOVED OR ALTERED: None. FINDINGS: Diminutive rectosigmoid polyps, external hemorrhoids, sigmoid diverticulosis. PROCEDURE: Rectal exam external hemorrhoids. Rectum diminutive polyps. Sigmoid diminutive polyps. Sigmoid and descending colon diverticulosis. Transverse colon moderate amount of green liquidy stool, otherwise normal. Ascending cecum normal. Patient has redundant colon. Scope withdrawn cecum, ascending, transverse, descending, sigmoid all the way to the rectum. CONCLUSIONS: 1. Diminutive rectosigmoid polyps. 2. Sigmoid and descending colon diverticulosis. DISCHARGE PLAN: 1. Soft low residue diet, diabetic diet, for 2 days. 2. Continue all medication. 3. Consideration for follow-up colonoscopy in 3 years. DICTATING PHYSICIAN: EARLENE VITALE M.D. [id number] PHY#: [id number] ID: [id number] JOB#: [id number] ACCT: [id number] cc:Kanu HENNESSY M.D. >
--- NOTE | 2017-05-24 11:19 | DISCHARGE SUMMARY E ---
Discharge Summary NAME: TAHIR FOURNIER : 1955 AGE: 61Y ADMITTED: 05/24/2017 DISCHARGED: 05/24/2017 HISTORY: The patient is a 61-year-old male who presented to us for colon screening. Today's colonoscopy was completed successful to the cecum. There were diminutive polyps rectosigmoid and sigmoid descending colon diverticulosis. Patient known to have coronary artery disease, stents x5, diabetes, COPD, asthma, anemia, reflux. Today's colonoscopy shows no bleeding, no malignancy. DISCHARGE PLAN: Soft, low-residue diet, diabetic diet for 2 days. Resume all meds. Consideration followup colonoscopy 3 years. DICTATING PHYSICIAN: EARLENE VITALE M.D. [id number] PHY#: [id number] ID: [id number] JOB#: [id number] ACCT: [id number] cc:Kanu HENNESSY M.D. >
== END 2017-05-24 10:40 | disposition home or self-care (01) ==
LOC: END 08:26
PROVIDERS: ATTEND Specialist
PROC: 0DJD8ZZ Inspection of Lower Intestinal Tract, Via Natural or Artificial Opening Endoscopic (ICD-10-PCS; principal; 2017-05-24 09:00)
DX: Z12.11 Encounter for screening for malignant neoplasm of colon (principal); D12.4 Benign neoplasm of descending colon; D12.7 Benign neoplasm of rectosigmoid junction; K57.30 Diverticulosis of large intestine without perforation or abscess without bleeding; K64.4 Residual hemorrhoidal skin tags; I25.10 Atherosclerotic heart disease of native coronary artery without angina pectoris; E11.9 Type 2 diabetes mellitus without complications; J44.9 Chronic obstructive pulmonary disease, unspecified; D64.9 Anemia, unspecified; K21.9 Gastro-esophageal reflux disease without esophagitis; Z98.61 Coronary angioplasty status; Z79.4 Long term (current) use of insulin; Z88.5 Allergy status to narcotic agent; Z88.0 Allergy status to penicillin; Z79.899 Other long term (current) drug therapy
CPT/HCPCS: 45378; 82962; J2250; J3010; J1610; J3490 ×2; J2405; J0171; J2310

== ENCOUNTER 2017-05-25 15:43 | Emergency (ER) | payer OTHER, MEDICAID ==
[2017-05-25] MEDS ORDERED: ACETAMINOPHEN 325 MG TABLET PO ONE (17:27)
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
[2017-05-25 19:02] VITALS: BP 122/76
== END 2017-05-25 19:03 | disposition home or self-care (01) ==
LOC: ER 15:43
DX: M54.9 Dorsalgia, unspecified (principal); V49.40XA Driver injured in collision with unspecified motor vehicles in traffic accident, initial encounter; I25.10 Atherosclerotic heart disease of native coronary artery without angina pectoris; I10 Essential (primary) hypertension; J44.9 Chronic obstructive pulmonary disease, unspecified; E11.9 Type 2 diabetes mellitus without complications; Z98.61 Coronary angioplasty status; Z87.891 Personal history of nicotine dependence
CPT/HCPCS: 72050; 82962; 99284

== ENCOUNTER 2017-11-06 08:46 | Observation (INO) | payer OTHER, MEDICAID ==
[2017-11-06] MEDS ORDERED: ASPIRIN 81 MG TABLET, CHEWABLE PO ONE (09:26)
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
[2017-11-06 10:10] LABS: ABSOLUTE BASOPHILS # (AUTO) 0.1 10^3/uL (0.0-0.2); ABSOLUTE EOSINOPHILS # (AUTO) 0.2 10^3/uL (0.0-0.6); ABSOLUTE LYMPHOCYTES (AUTO) 1.7 10^3/uL (0.5-4.7); ABSOLUTE MONOCYTES (AUTO) 0.4 10^3/uL (0.1-1.4); ABSOLUTE NEUT (AUTO) 3.6 10^3/uL (1.7-8.2); BASOPHILS % (AUTO) 1.2 % (0-2); EOSINOPHILS % (AUTO) 3.5 % (0-6); HEMATOCRIT 45.9 % (37.9-51.0); HEMOGLOBIN 14.9 g/dL (13.5-17.0); LYMPHOCYTES % (AUTO) 28.5 % (13-45); MEAN CORPUSCULAR HEMOGLOBIN 26.9 pg (27.0-33.4); MEAN CORPUSCULAR HGB CONC 32.5 g/dL (32.0-36.0); MEAN CORPUSCULAR VOLUME 83 fl (80-97); MONOCYTES % (AUTO) 7.2 % (3-13); PLATELET COUNT 216 10^3/uL (150-450); RED BLOOD COUNT 5.53 10^6/uL (4.35-5.55); RED CELL DISTRIBUTION WIDTH 14.4 % (11.5-14.0); SEGMENTED NEUTROPHILS % (AUTO) 59.6 % (42-78); TOTAL CELLS COUNTED % (AUTO) 100 %; WHITE BLOOD COUNT 6.1 10^3/uL (4.0-10.5)
[2017-11-06 10:40] LABS: ALANINE AMINOTRANSFERASE 39 U/L (21-72); ALBUMIN 4.4 g/dL (3.5-5.0); ALKALINE PHOSPHATASE 136 U/L (38-126); ANION GAP 12 (5-19); ASPARTATE AMINO TRANSFERASE 23 U/L (17-59); BILIRUBIN,DIRECT 0.3 mg/dL (0.0-0.4); BILIRUBIN,TOTAL 0.4 mg/dL (0.2-1.3); BLOOD UREA NITROGEN 27 mg/dL (7-20); CARBON DIOXIDE 25 mmol/L (22-30); CHLORIDE 111 mmol/L (98-107); CREATINE KINASE 116 U/L (55-170); GLUCOSE 96 mg/dL (75-110); POTASSIUM 4.2 mmol/L (3.6-5.0); SODIUM 147.7 mmol/L (137-145); TOTAL PROTEIN 7.6 g/dL (6.3-8.2)
[2017-11-06 10:41] LABS: CREATINE KINASE MB 1.68 ng/mL (<4.55); TROPONIN I < 0.012 ng/mL
[2017-11-06 11:07] LABS: APPEARANCE,URINE CLEAR; BILIRUBIN,URINE NEGATIVE (NEGATIVE); COLOR,URINE YELLOW; GLUCOSE, URINE >=500 mg/dL (NEGATIVE); KETONES,URINE NEGATIVE (NEGATIVE); LEUKOCYTE ESTERASE,URINE NEGATIVE (NEGATIVE); NITRITE,URINE NEGATIVE (NEGATIVE); PROTEIN,URINE 30 mg/dL (NEGATIVE); URINE SPECIFIC GRAVITY 1.026; UROBILINOGEN,URINE NEGATIVE mg/dL (<2.0)
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
[2017-11-06] MEDS ORDERED: NORMAL SALINE 500 ML IV ONE (11:40)
[2017-11-06] MEDS ORDERED: IPRATROPIUM/ALBUTEROL 0.5-2.5 MG/3 ML AMPUL NEB PRN (14:02)
[2017-11-06] MEDS ORDERED: ONDANSETRON HCL INJ/PF 4 MG/2 ML SDV IV PRN ×2 (14:02→15:00)
[2017-11-06] MEDS ORDERED: ACETAMINOPHEN 325 MG TABLET PO PRN (14:02)
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
[2017-11-06 16:20] LABS: CREATINE KINASE MB 1.15 ng/mL (<4.55)
[2017-11-06 16:30] LABS: TROPONIN I < 0.012 ng/mL
[2017-11-06] MEDS ORDERED: TRAMADOL HCL 50 MG TABLET PO PRN (16:43)
[2017-11-06] MEDS ORDERED: BUTALB/ACETAMINOPHEN/CAFFEINE 1 TAB EACH PO PRN (16:43)
[2017-11-06] MEDS ORDERED: DEXTROSE 40% GEL 15 GM TUBE PO PRN ×2 (16:44)
[2017-11-06] MEDS ORDERED: GLUCAGON,HUMAN RECOMB 1 MG INJ IM PRN (16:44)
[2017-11-06] MEDS ORDERED: INSULIN LISPRO 100 UNIT/ML 3 ML VIAL SUBCUT PRN (16:44)
[2017-11-06] MEDS ORDERED: DEXTROSE 50%-WATER 25 GM/50 ML DISP.SYRIN IV PRN ×2 (16:44)
[2017-11-06] MEDS ORDERED: LORATADINE 10 MG TABLET PO PRN (16:46)
[2017-11-06] MEDS ORDERED: (PENDING PHARMACY ID) (Insulin Aspart [Novolog Flexpen] 15 UNIT) SQ SCH (17:00)
[2017-11-06] MEDS ORDERED: INFLUENZA ADLT QUAD (36MOS+) 2017-18 VAC 0.5 ML SYR IM PRN (17:31)
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
--- NOTE | 2017-11-06 19:54 | XCELERA REPORT ---
[address] [address] Transthoracic Echocardiogram Report Name: TAHIR FOURNIER Age: 61 yrs Gender: Male : 1955 Patient Status: Inpatient Patient Location: [place] [address]^A Study Date: 11/06/2017 02:38 PM Height: 69 in Weight: 176 lb BSA: 2.0 m2 Procedure: A complete two-dimensional transthoracic echocardiogram was performed (2D, M-mode, spectral and color flow Doppler). The study was technically adequate with some images being suboptimal in quality. Reason For Study: chest pain Ordering Physician: ZAIRE GEIGER Performed By: Alice Tamez Interpretation Summary The left ventricular ejection fraction is normal. There is mild concentric left ventricular hypertrophy. The left ventricle is grossly normal size. Doppler measurements suggest impaired left ventricular relaxation, which is associated with grade I/IV or mild diastolic dysfunction Wall motion cannot be accurately commented on, but no definite regional wall motion abnormalities noted. The right ventricular systolic function is normal. The left atrium is mildly dilated. The right atrium is normal in size There is a trace to mild amount of mitral regurgitation There is no mitral valve stenosis. No aortic regurgitation is present. There is no aortic valve stenosis There is a trace or physiologic amount of tricuspid regurgitation Tricuspid regurgitation jet envelope not well defined to measure RV systolic pressure accurately. The aortic root is not well visualized but is probably normal size. The inferior vena cava appeared normal and decreased > 50% with respiration (RAP 5-10 mmHg) Minimal pericardial effusion. MMode/2D Measurements & Calculations RVDd: 3.5 cm LVIDd: 5.2 cmFS: 35.3 % Ao root diam: 3.0 cm IVSd: 1.2 cm LVIDs: 3.4 cmEDV(Teich): 128.3 ml LVPWd: 1.2 cmESV(Teich): 45.8 ml Ao root area: 7.2 cm2 EF(Teich): 64.3 % LVOT diam: 2.2 cm LVOT area: 3.9 cm2 Doppler Measurements & Calculations MV E max geovanni: MV dec slope: Ao V2 max: LV V1 max P.6 cm/sec 528.1 cm/sec2 258.5 cm/sec 4.4 mmHg MV A max geovanni: MV dec time: Ao max PG: LV V1 mean P.2 cm/sec 0.20 sec 26.7 mmHg 2.1 mmHg MV E/A: 1.8 Ao V2 mean: LV V1 max: 168.2 cm/sec 105.4 cm/sec Ao mean PG: LV V1 mean: 12.9 mmHg 70.1 cm/sec Ao V2 VTI: 55.0 cmLV V1 VTI: ZEESHAN(I,D): 1.6 cm2 22.4 cm ZEESHAN(V,D): 1.6 cm2 SV(LVOT): 86.8 ml PA V2 max: PI end-d geovanni: TR max geovanni: 110.1 cm/sec 106.9 cm/sec 253.7 cm/sec PA max P.8 mmHg TR max P.8 mmHg Left Ventricle The left ventricle is grossly normal size. There is mild concentric left ventricular hypertrophy. The left ventricular ejection fraction is normal. Doppler measurements suggest impaired left ventricular relaxation, which is associated with grade I/IV or mild diastolic dysfunction. Wall motion cannot be accurately commented on, but no definite regional wall motion abnormalities noted. Right Ventricle The right ventricle is grossly normal size. There is normal right ventricular wall thickness. The right ventricular systolic function is normal. Atria The right atrium is normal in size. The left atrium is mildly dilated. Interarterial septum not well visualized and not well dopplered. Cannot comment on ASD/PFO presence. Mitral Valve The mitral valve is grossly normal. There is no mitral valve stenosis. There is a trace to mild amount of mitral regurgitation. Aortic Valve The aortic valve is sclerotic, but shows no functional abnormality. There is no aortic valve stenosis. No aortic regurgitation is present. Tricuspid Valve The tricuspid valve is not well visualized, but is grossly normal. There is no tricuspid stenosis. There is a trace or physiologic amount of tricuspid regurgitation. Tricuspid regurgitation jet envelope not well defined to measure RV systolic pressure accurately. Pulmonic Valve The pulmonic valve is not well visualized. Great Vessels The aortic root is not well visualized but is probably normal size. The inferior vena cava appeared normal and decreased > 50% with respiration (RAP 5-10 mmHg). Effusions Minimal pericardial effusion. : ZAIRE GEIGER > Jessi Ortega
[2017-11-06] MEDS ORDERED: ATORVASTATIN CALCIUM 40 MG TABLET PO SCH (22:00)
[2017-11-06] MEDS ORDERED: LISINOPRIL 5 MG TABLET PO ONE (22:00)
[2017-11-06] MEDS ORDERED: TAMSULOSIN HCL 0.4 MG CAP.SR.24H PO SCH (22:00)
[2017-11-06] MEDS ORDERED: METOPROLOL TARTRATE 25 MG TABLET PO ONE (22:00)
[2017-11-06] MEDS ORDERED: INSULIN GLARGINE,HUM.REC.ANLOG 1,000 UNIT/10 ML UNIT SUBCUT SCH (22:00)
[2017-11-06] MEDS ORDERED: METOPROLOL TARTRATE 25 MG TABLET PO SCH (22:00)
[2017-11-06] MEDS ORDERED: MONTELUKAST SODIUM 10 MG TABLET PO SCH (22:00)
[2017-11-06 22:24] LABS: CREATINE KINASE MB 1.13 ng/mL (<4.55)
[2017-11-06 22:28] LABS: TROPONIN I < 0.012 ng/mL
[2017-11-07 04:11] LABS: ABSOLUTE BASOPHILS # (AUTO) 0.1 10^3/uL (0.0-0.2); ABSOLUTE EOSINOPHILS # (AUTO) 0.3 10^3/uL (0.0-0.6); ABSOLUTE LYMPHOCYTES (AUTO) 2.2 10^3/uL (0.5-4.7); ABSOLUTE MONOCYTES (AUTO) 0.5 10^3/uL (0.1-1.4); ABSOLUTE NEUT (AUTO) 3.2 10^3/uL (1.7-8.2); BASOPHILS % (AUTO) 1.1 % (0-2); EOSINOPHILS % (AUTO) 4.1 % (0-6); HEMATOCRIT 44.1 % (37.9-51.0); HEMOGLOBIN 14.6 g/dL (13.5-17.0); LYMPHOCYTES % (AUTO) 36.3 % (13-45); MEAN CORPUSCULAR HEMOGLOBIN 27.2 pg (27.0-33.4); MEAN CORPUSCULAR HGB CONC 33.1 g/dL (32.0-36.0); MEAN CORPUSCULAR VOLUME 82 fl (80-97); MONOCYTES % (AUTO) 7.7 % (3-13); PLATELET COUNT 181 10^3/uL (150-450); RED BLOOD COUNT 5.37 10^6/uL (4.35-5.55); RED CELL DISTRIBUTION WIDTH 14.7 % (11.5-14.0); SEGMENTED NEUTROPHILS % (AUTO) 50.8 % (42-78); TOTAL CELLS COUNTED % (AUTO) 100 %; WHITE BLOOD COUNT 6.2 10^3/uL (4.0-10.5)
[2017-11-07 04:27] LABS: ANION GAP 12 (5-19); BLOOD UREA NITROGEN 23 mg/dL (7-20); CALCIUM 9.8 mg/dL (8.4-10.2); CARBON DIOXIDE 23 mmol/L (22-30); CHLORIDE 109 mmol/L (98-107); CREATINE KINASE 77 U/L (55-170); GLUCOSE 215 mg/dL (75-110); MAGNESIUM 1.9 mg/dL (1.6-2.3); POTASSIUM 4.5 mmol/L (3.6-5.0)
[2017-11-07 04:37] LABS: CREATINE KINASE MB 0.73 ng/mL (<4.55)
[2017-11-07 04:43] LABS: TROPONIN I < 0.012 ng/mL
--- NOTE | 2017-11-07 07:59 | EKG REPORT ---
SEVERITY:- OTHERWISE NORMAL ECG - SINUS RHYTHM LEFT AXIS DEVIATION : Confirmed by: Sushma Washington MD 07-Nov-2017 07:57:55
[2017-11-07 08:39] VITALS: BP 158/61
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
[2017-11-07] MEDS ORDERED: FINASTERIDE 5 MG TABLET PO SCH (10:00)
[2017-11-07] MEDS ORDERED: LISINOPRIL 5 MG TABLET PO SCH (10:00)
[2017-11-07] MEDS ORDERED: (PENDING PHARMACY ID) (Dapagliflozin Propanediol [Farxiga] 10 MG) PO SCH (10:00)
[2017-11-07] MEDS ORDERED: ISOSORBIDE MONONITRATE 60 MG TAB.ER.24H PO SCH (10:00)
[2017-11-07] MEDS ORDERED: AMLODIPINE BESYLATE 5 MG TABLET PO SCH (10:00)
[2017-11-07] MEDS ORDERED: ENOXAPARIN SODIUM INJ 40 MG/0.4 ML DISP.SYRIN SUBCUT SCH (10:00)
[2017-11-07] MEDS ORDERED: ASPIRIN 81 MG TABLET, ENT COATED PO SCH (10:00)
--- NOTE | 2017-11-07 11:21 | PDOC PROGRESS REPORT ---
Subjective Progress Note for:: 11/07/17 Subjective:: Patient seems to be doing better. Pt is denying any chest arm or neck discomfort. Patient denying any PND, orthopnea. Patient denied any sustained palpitations, dizziness, syncope, near syncope. Patient denying any fever chills. Patient denying any other significant discomfort. Patient is maintaining sinus rhythm. Review of systems: Rest review of systems negative. Medications: Medications have been reviewed. Reason For Visit: CHEST PAIN Physical Exam Vital Signs: Temp Pulse Resp BP Pulse Ox 98.2 F 63 18 158/61 H 94 11/07/17 08:57 11/07/17 08:57 11/07/17 08:57 11/07/17 08:57 11/07/17 08:57 Intake & Output 11/06/17 11/07/17 11/08/17 06:59 06:59 06:59 Intake Total 580 Balance 580 Weight 82.8 kg Exam: GENERAL: well-nourished and in no acute distress. Alert and oriented x3 HEAD: Atraumatic, normocephalic. EYES: Pupils equal round and reactive to light, extraocular movements intact, sclera anicteric, conjunctiva are normal. ENT: TMs normal, nares patent, oropharynx clear without exudates. Moist mucous membranes. No oral ulcerations or bleeding gums noted NECK: supple without lymphadenopathy. Trachea is central. No cervical or axillary lymphadenopathy noted. Carotids are 2+, JVD WNL LUNGS: Respiration seems nonlabored, no significant accessory muscle action noted. Breath sounds clear to auscultation bilaterally and equal noted. No wheezes rales or rhonchi noted. No significant dullness noted on percussion. CHEST: Palpation of the chest wall shows no significant chest wall tenderness. No other significant abnormalities noted. 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 ABDOMEN: Soft, no significant tenderness appreciated, normoactive bowel sounds. No guarding, no rebound. No rigidity noted . No masses appreciated. EXTREMITIES: Pedal pulses are 1-2+, no calf tenderness noted. No clubbing or cyanosis.trace to 1+ pedal edema noted NEUROLOGICAL: Focused neurological exam showed no significant neurologic deficit. Normal speech, no focal weakness appreciated. PSYCH: Normal mood, normal affect. Judgment and insight within normal limits. SKIN: No significant ecchymosis, rash, ulcerations or signs of pruritus noted. MUSCULOSKELETAL EXAM: No significant joint swelling noted. Results Laboratory Results: 11/07/17 03:44 11/07/17 03:44 11/07/17 11/07/17 03:44 03:44 WBC 6.2 RBC 5.37 Hgb 14.6 Hct 44.1 MCV 82 MCH 27.2 MCHC 33.1 RDW 14.7 H Plt Count 181 Seg Neutrophils % 50.8 Lymphocytes % 36.3 Monocytes % 7.7 Eosinophils % 4.1 Basophils % 1.1 Absolute Neutrophils 3.2 Absolute Lymphocytes 2.2 Absolute Monocytes 0.5 Absolute Eosinophils 0.3 Absolute Basophils 0.1 Sodium 144.0 Potassium 4.5 Chloride 109 H Carbon Dioxide 23 Anion Gap 12 BUN 23 H Creatinine 0.94 Est GFR ( Amer) > 60 Est GFR (Non-Af Amer) > 60 Glucose 215 H Calcium 9.8 Magnesium 1.9 11/06/17 11/06/17 11/06/17 15:26 15:26 21:30 Creatine Kinase 94 92 CK-MB (CK-2) 1.15 Troponin I < 0.012 11/06/17 11/07/17 11/07/17 21:30 03:44 03:44 Creatine Kinase 77 CK-MB (CK-2) 1.13 0.73 Troponin I < 0.012 < 0.012 EKG Comments: No significant dysrhythmia noted on telemetry strip review. Impressions: Chest X-Ray 11/06/17 09:25 IMPRESSION: NO ACUTE RADIOGRAPHIC FINDING IN THE CHEST. KUB X-Ray 11/06/17 09:25 IMPRESSION: NO RADIOGRAPHIC EVIDENCE FOR ACUTE ABDOMINAL DISEASE. Chest CT 11/06/17 13:59 IMPRESSION: CHRONIC CHANGES IN THE LUNGS. NO ACUTE FINDINGS IN THE CHEST. Assessment & Plan - Diagnosis (1) Chest pain Qualifiers: Chest pain type: unspecified Qualified Code(s): R07.9 - Chest pain, unspecified Is this a current diagnosis for this admission?: Yes (2) Coronary artery disease Qualifiers: Coronary Disease-Associated Artery/Lesion type: unspecified vessel or lesion type Associated angina: without angina Is this a current diagnosis for this admission?: Yes (3) Hyperlipidemia Qualifiers: Hyperlipidemia type: other hyperlipidemia Is this a current diagnosis for this admission?: Yes (4) Hypertension Qualifiers: Hypertension type: essential hypertension Is this a current diagnosis for this admission?: Yes (5) Type 2 diabetes mellitus Qualifiers: Diabetes mellitus complication status: with unspecified complications Diabetes mellitus moth exterminator insulin use: with alf use Qualified Code(s) : E11.8 - Type 2 diabetes mellitus with unspecified complications; Z79.4 - half-way (current) use of insulin; Z79.4 - half-way (current) use of insulin; Z79.4 - bed bug exterminator (current) use of insulin; Z79.4 - half-way (current) use of insulin Is this a current diagnosis for this admission?: Yes (6) Sleep apnea syndrome Qualifiers: Sleep apnea type: unspecified type Qualified Code(s): G47.30 - Sleep apnea , unspecified Is this a current diagnosis for this admission?: Yes - Notes Notes: Patient has done well without any recurrence of chest pain. He has ambulated. 2D echo results were reviewed with the patient. His medications were reviewed. Patient is being discharged home. Patient was advised to keep follow-up appointment with his primary care cream buyer and also see me regarding the starting CPAP therapy which will immensely helped him. Patient to report any further problems. - Time Time with patient: 15-25 minutes - CODE STATUS was discussed, patient remains full code. Surrogate decision-maker unchanged. Multiple medical problems were addressed. More than 50% of the time spent coordinating care, discussing management plans with involved caregivers. Management plans discussed with involved personnels. Medical decision making was of moderate to high complexity , patient's has multiple comorbidities. Medications reviewed and adjusted accordingly: Yes
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
== END 2017-11-07 09:40 | disposition home or self-care (01) ==
LOC: ER 08:46 → INTOOBSV 14:55 → EH 14:55 → OBSVTOIN 14:55 → 4S 16:37
PROVIDERS: ADMIT Family Medicine; ATTEND Family Medicine
PROC: 3E0234Z Introduction of Serum, Toxoid and Vaccine into Muscle, Percutaneous Approach (ICD-10-PCS; principal; 2017-11-07)
DX: R07.89 Other chest pain (principal); V89.2XXA Person injured in unspecified motor-vehicle accident, traffic, initial encounter; Y92.410 Unspecified street and highway as the place of occurrence of the external cause; I25.10 Atherosclerotic heart disease of native coronary artery without angina pectoris; E78.4 Other hyperlipidemia; I10 Essential (primary) hypertension; E11.8 Type 2 diabetes mellitus with unspecified complications; K21.9 Gastro-esophageal reflux disease without esophagitis; R11.2 Nausea with vomiting, unspecified; G47.30 Sleep apnea, unspecified; Z79.82 Long term (current) use of aspirin; Z79.4 Long term (current) use of insulin; Z79.899 Other long term (current) drug therapy; Z95.5 Presence of coronary angioplasty implant and graft; Z90.49 Acquired absence of other specified parts of digestive tract; Z87.891 Personal history of nicotine dependence; Z82.49 Family history of ischemic heart disease and other diseases of the circulatory system; Z23 Encounter for immunization
CPT/HCPCS: 93005; 99285; 36415 ×2; 82553 ×2; 82962 ×2; 82550 ×2; 83735; 85025 ×2; 80048; 80053; 81001; 84484 ×2; 93306; 71010; 74000; 71250; 90686; 93010; G0378 ×3; J7040; J1815

== ENCOUNTER → 2018-02-21 | Outpatient (CLI) | payer MEDICAID ==
--- NOTE | 2018-02-21 11:11 | RADIOLOGY REPORT (SQ) ---
EXAM DESCRIPTION: CHEST PA/LATERAL COMPLETED DATE/TIME: 02/21/2018 11:03 am REASON FOR STUDY: COUGH COMPARISON: AP chest 11/01/2017 CT chest 11/06/2017 EXAM PARAMETERS: NUMBER OF VIEWS: two views TECHNIQUE: Digital Frontal and Lateral radiographic views of the chest acquired. RADIATION DOSE: NA LIMITATIONS: none FINDINGS: LUNGS AND PLEURA: No opacities, masses or pneumothorax. No pleural effusion. MEDIASTINUM AND HILAR STRUCTURES: No masses or contour abnormalities. HEART AND VASCULAR STRUCTURES: Heart normal size. No evidence for failure. BONES: Osteopenic. Diffuse thoracic spondylotic change HARDWARE: Clips right upper quadrant post cholecystectomy OTHER: No other significant finding. IMPRESSION: No acute changes TECHNICAL DOCUMENTATION: JOB ID: [id number] [employer]- All Rights Reserved Reading location - IP/workstation name: [email or web address]
== END ==
LOC: OD 10:48
PROVIDERS: ATTEND Physician Assistant
DX: R05 Cough (principal)
CPT/HCPCS: 71046

== ENCOUNTER → 2018-05-06 | Outpatient (CLI) | payer MEDICAID ==
[2018-05-06 15:58] LABS: ANION GAP 13 (5-19); BLOOD UREA NITROGEN 42 mg/dL (7-20); CARBON DIOXIDE 23 mmol/L (22-30); CHLORIDE 106 mmol/L (98-107); GLUCOSE 212 mg/dL (75-110); POTASSIUM 5.1 mmol/L (3.6-5.0); SODIUM 142.1 mmol/L (137-145)
[2018-05-06 15:59] LABS: CALCIUM 9.6 mg/dL (8.4-10.2)
== END ==
LOC: OD 14:53
PROVIDERS: ATTEND Family Medicine
DX: E87.5 Hyperkalemia (principal)
CPT/HCPCS: 36415; 80048

== ENCOUNTER → 2018-07-01 | Outpatient (CLI) | payer MEDICAID ==
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
== END ==
LOC: OD 09:46
PROVIDERS: ATTEND Physician Assistant
DX: M25.561 Pain in right knee (principal); M54.41 Lumbago with sciatica, right side
CPT/HCPCS: 72110

== ENCOUNTER 2018-08-15 11:57 | Emergency (ER) | payer MEDICAID ==
[2018-08-15 12:14] VITALS: BP 118/73
[2018-08-15] MEDS ORDERED: LIDOCAINE 1% INJ-PF (10 MG/ML) 30 ML SDV INJ ONE (13:00)
[2018-08-15] MEDS ORDERED: DIPH/PERTUSS(ACELL)/TETANUS VAC/PF 0.5 ML SYR (>=10YO) IM ONE (13:11)
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
--- NOTE | 2018-08-15 14:11 | RADIOLOGY REPORT (SQ) ---
EXAM DESCRIPTION: HAND RIGHT 2 VIEWS COMPLETED DATE/TIME: 08/15/2018 1:16 pm REASON FOR STUDY: foreign body COMPARISON: None. EXAM PARAMETERS: NUMBER OF VIEWS: Three views. TECHNIQUE: AP, lateral and oblique radiographic images acquired of the right hand. LIMITATIONS: None. FINDINGS: MINERALIZATION: Normal. BONES: No acute fracture or dislocation. No worrisome bone lesions. JOINTS: No effusions. SOFT TISSUES: No soft tissue swelling. No foreign body. OTHER: No other significant finding. IMPRESSION: NEGATIVE STUDY OF THE RIGHT HAND. NO RADIOGRAPHIC EVIDENCE OF ACUTE INJURY. TECHNICAL DOCUMENTATION: JOB ID: [id number] [email or web address]- All Rights Reserved Reading location - IP/workstation name: [email or web address]
== END 2018-08-15 14:04 | disposition home or self-care (01) ==
LOC: ER 11:57
DX: S61.212A Laceration without foreign body of right middle finger without damage to nail, initial encounter (principal); W23.0XXA Caught, crushed, jammed, or pinched between moving objects, initial encounter; Y93.89 Activity, other specified; E11.65 Type 2 diabetes mellitus with hyperglycemia; R20.2 Paresthesia of skin; I25.10 Atherosclerotic heart disease of native coronary artery without angina pectoris; I10 Essential (primary) hypertension; J44.9 Chronic obstructive pulmonary disease, unspecified; Z23 Encounter for immunization; Z95.5 Presence of coronary angioplasty implant and graft; Z87.891 Personal history of nicotine dependence
CPT/HCPCS: 99283; 90471; 73120; 90715; 12001; J3490

== ENCOUNTER 2018-08-15 18:49 | Emergency (ER) | payer MEDICAID ==
[2018-08-15] MEDS ORDERED: ONDANSETRON 4 MG TAB.RAPDIS PO ONE (20:00)
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
[2018-08-15 20:29] LABS: ABSOLUTE EOSINOPHILS # (AUTO) 0.2 10^3/uL (0.0-0.6); ABSOLUTE LYMPHOCYTES (AUTO) 1.7 10^3/uL (0.5-4.7); ABSOLUTE MONOCYTES (AUTO) 0.5 10^3/uL (0.1-1.4); ABSOLUTE NEUT (AUTO) 6.1 10^3/uL (1.7-8.2); BASOPHILS % (AUTO) 0.6 % (0-2); EOSINOPHILS % (AUTO) 1.8 % (0-6); HEMATOCRIT 39.6 % (37.9-51.0); HEMOGLOBIN 13.5 g/dL (13.5-17.0); LYMPHOCYTES % (AUTO) 20.3 % (13-45); MEAN CORPUSCULAR HEMOGLOBIN 28.2 pg (27.0-33.4); MEAN CORPUSCULAR HGB CONC 34.1 g/dL (32.0-36.0); MEAN CORPUSCULAR VOLUME 83 fl (80-97); MONOCYTES % (AUTO) 6.3 % (3-13); PLATELET COUNT 227 10^3/uL (150-450); RED BLOOD COUNT 4.79 10^6/uL (4.35-5.55); RED CELL DISTRIBUTION WIDTH 13.3 % (11.5-14.0); TOTAL CELLS COUNTED % (AUTO) 100 %; WHITE BLOOD COUNT 8.6 10^3/uL (4.0-10.5)
[2018-08-15] MEDS ORDERED: NORMAL SALINE 1000 ML 1,000 ML IV ONE ×2 (20:38→22:05)
[2018-08-15] MEDS ORDERED: ONDANSETRON HCL INJ/PF 4 MG/2 ML SDV IV ONE (20:39)
[2018-08-15 20:41] LABS: ALANINE AMINOTRANSFERASE 31 U/L (21-72); ALBUMIN 4.6 g/dL (3.5-5.0); ALKALINE PHOSPHATASE 92 U/L (38-126); ANION GAP 12 (5-19); ASPARTATE AMINO TRANSFERASE 32 U/L (17-59); BILIRUBIN,DIRECT 0.6 mg/dL (0.0-0.4); BILIRUBIN,TOTAL 0.9 mg/dL (0.2-1.3); BLOOD UREA NITROGEN 34 mg/dL (7-20); CALCIUM 10.4 mg/dL (8.4-10.2); CARBON DIOXIDE 22 mmol/L (22-30); CHLORIDE 109 mmol/L (98-107); CREATINE KINASE 214 U/L (55-170); GLUCOSE 142 mg/dL (75-110); POTASSIUM 5.5 mmol/L (3.6-5.0); SODIUM 142.6 mmol/L (137-145); TOTAL PROTEIN 8.1 g/dL (6.3-8.2)
[2018-08-15] MEDS ORDERED: FAMOTIDINE 20 MG TABLET PO ONE (20:41)
[2018-08-15] MEDS ORDERED: METOCLOPRAMIDE HCL ORAL SOLN 10 MG/10 ML UDCUP PO ONE (20:42)
[2018-08-15] MEDS ORDERED: MAG HYDROX/AL HYDROX/SIMETH SUSP 30 ML UDCUP PO ONE (20:42)
[2018-08-15] MEDS ORDERED: LIDOCAINE 2% VISCOUS SOLN 20 ML UDCUP PO ONE (20:42)
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
[2018-08-15 20:53] LABS: CREATINE KINASE MB 2.66 ng/mL (<4.55)
[2018-08-15 20:55] LABS: TROPONIN I < 0.012 ng/mL
[2018-08-15 21:01] LABS: APPEARANCE,URINE SLIGHTLY-CLOUDY; BILIRUBIN,URINE NEGATIVE (NEGATIVE); COLOR,URINE YELLOW; GLUCOSE, URINE >=500 mg/dL (NEGATIVE); KETONES,URINE NEGATIVE (NEGATIVE); LEUKOCYTE ESTERASE,URINE NEGATIVE (NEGATIVE); NITRITE,URINE NEGATIVE (NEGATIVE); PROTEIN,URINE 30 mg/dL (NEGATIVE)
--- NOTE | 2018-08-15 21:02 | RADIOLOGY REPORT (SQ) ---
EXAM DESCRIPTION: ABDOMEN 2 VIEWS COMPLETED DATE/TIME: 08/15/2018 8:51 pm REASON FOR STUDY: eval obstruction COMPARISON: None. NUMBER OF VIEWS: Two views. TECHNIQUE: Supine and upright radiographic images of the abdomen acquired. LIMITATIONS: None. FINDINGS: FREE AIR: None. No abnormal gas collections. LUNG BASES: Clear. BOWEL GAS PATTERN: Nonobstructive pattern. No dilated loops or air fluid levels. Moderate stool thro ughout the colon. CALCIFICATIONS: No suspicious calcifications. SOFT TISSUES: No gross mass or suggestion of organomegaly. HARDWARE: Clips right upper quadrant post cholecystectomy BONES: Old right hip hardware post ORIF intertrochanteric fracture OTHER: No other significant finding. IMPRESSION: NO RADIOGRAPHIC EVIDENCE FOR ACUTE ABDOMINAL DISEASE. MODERATE STOOL IN THE COLON TECHNICAL DOCUMENTATION: JOB ID: [id number] [email or web address]- All Rights Reserved Reading location - IP/workstation name: [email or web address]
[2018-08-15 23:18] LABS: ANION GAP 10 (5-19); BLOOD UREA NITROGEN 29 mg/dL (7-20); CALCIUM 9.2 mg/dL (8.4-10.2); CARBON DIOXIDE 20 mmol/L (22-30); CHLORIDE 111 mmol/L (98-107); GLUCOSE 140 mg/dL (75-110); POTASSIUM 4.9 mmol/L (3.6-5.0); SODIUM 141.1 mmol/L (137-145)
[2018-08-15] MEDS ORDERED: ONDANSETRON ODT 4 MG TAB (6 TAB/ER DISP) PO PRN (23:41)
[2018-08-16 00:20] VITALS: BP 131/71
--- NOTE | 2018-08-16 19:29 | EKG REPORT ---
SEVERITY:- NORMAL ECG - SINUS RHYTHM : Confirmed by: Jessi Ortega 16-Aug-2018 19:28:30
== END 2018-08-16 00:20 | disposition home or self-care (01) ==
LOC: ER 18:49
DX: R11.2 Nausea with vomiting, unspecified (principal); R79.89 Other specified abnormal findings of blood chemistry; K59.00 Constipation, unspecified; R19.7 Diarrhea, unspecified; E11.9 Type 2 diabetes mellitus without complications; J44.9 Chronic obstructive pulmonary disease, unspecified; I10 Essential (primary) hypertension; I25.10 Atherosclerotic heart disease of native coronary artery without angina pectoris; Z95.5 Presence of coronary angioplasty implant and graft; Z90.49 Acquired absence of other specified parts of digestive tract; Z79.82 Long term (current) use of aspirin
CPT/HCPCS: 93005; 99284; 96361; 96374; 36415; 82553; 82550; 85025; 80048; 80053; 81001; 84484; 74019; 93010; J3490 ×4; S0119; J2405; J7030

== ENCOUNTER 2019-01-14 18:59 | Emergency (ER) | payer MEDICAID ==
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
[2019-01-14 20:56] LABS: ABSOLUTE BASOPHILS # (AUTO) 0.1 10^3/uL (0.0-0.2); ABSOLUTE EOSINOPHILS # (AUTO) 0.5 10^3/uL (0.0-0.6); ABSOLUTE LYMPHOCYTES (AUTO) 3.6 10^3/uL (0.5-4.7); ABSOLUTE MONOCYTES (AUTO) 0.9 10^3/uL (0.1-1.4); ABSOLUTE NEUT (AUTO) 3.7 10^3/uL (1.7-8.2); EOSINOPHILS % (AUTO) 5.6 % (0-6); HEMATOCRIT 40.2 % (37.9-51.0); HEMOGLOBIN 13.6 g/dL (13.5-17.0); MEAN CORPUSCULAR HEMOGLOBIN 27.6 pg (27.0-33.4); MEAN CORPUSCULAR HGB CONC 33.7 g/dL (32.0-36.0); MEAN CORPUSCULAR VOLUME 82 fl (80-97); MONOCYTES % (AUTO) 9.8 % (3-13); PLATELET COUNT 226 10^3/uL (150-450); RED BLOOD COUNT 4.92 10^6/uL (4.35-5.55); RED CELL DISTRIBUTION WIDTH 13.9 % (11.5-14.0); SEGMENTED NEUTROPHILS % (AUTO) 42.6 % (42-78); TOTAL CELLS COUNTED % (AUTO) 100 %; WHITE BLOOD COUNT 8.8 10^3/uL (4.0-10.5)
--- NOTE | 2019-01-14 21:04 | RADIOLOGY REPORT (SQ) ---
EXAM DESCRIPTION: XR CHEST 2 VIEWS COMPLETED DATE/TME: 01/14/2019 20:15 CLINICAL HISTORY: sob COMPARISON: None FINDINGS: Cardiac silhouette is within normal limits. There is no focal parenchymal or pleural disease. There is no acute osseous process visualized. IMPRESSION: No evidence of acute cardiopulmonary disease.
[2019-01-14 21:16] LABS: ALANINE AMINOTRANSFERASE 28 U/L (21-72); ALBUMIN 4.3 g/dL (3.5-5.0); ALKALINE PHOSPHATASE 118 U/L (38-126); ANION GAP 9 (5-19); ASPARTATE AMINO TRANSFERASE 26 U/L (17-59); BILIRUBIN,DIRECT 0.4 mg/dL (0.0-0.4); BILIRUBIN,TOTAL 0.4 mg/dL (0.2-1.3); BLOOD UREA NITROGEN 36 mg/dL (7-20); CALCIUM 9.6 mg/dL (8.4-10.2); CARBON DIOXIDE 26 mmol/L (22-30); CHLORIDE 108 mmol/L (98-107); POTASSIUM 4.4 mmol/L (3.6-5.0); SODIUM 143.3 mmol/L (137-145); TOTAL PROTEIN 7.2 g/dL (6.3-8.2)
[2019-01-14 21:27] LABS: NT PRO BNP 102 pg/mL (5-900)
[2019-01-14 21:34] LABS: TROPONIN I < 0.012 ng/mL
[2019-01-14 21:36] LABS: GLUCOSE 63 mg/dL (75-110)
[2019-01-14 21:43] LABS: APPEARANCE,URINE SLIGHTLY-CLOUDY; BILIRUBIN,URINE MODERATE (NEGATIVE); COLOR,URINE YELLOW; GLUCOSE, URINE 150 mg/dL (NEGATIVE); KETONES,URINE NEGATIVE (NEGATIVE); LEUKOCYTE ESTERASE,URINE MODERATE (NEGATIVE); NITRITE,URINE NEGATIVE (NEGATIVE); PROTEIN,URINE 100 mg/dL (NEGATIVE); URINE SPECIFIC GRAVITY 1.033
[2019-01-14] MEDS ORDERED: NORMAL SALINE 1000 ML 1,000 ML IV ONE (22:15)
[2019-01-14] MEDS ORDERED: DEXTROSE 50%-WATER 25 GM/50 ML DISP.SYRIN IV ONE (22:15)
[2019-01-14] MEDS ORDERED: PREDNISONE 20 MG TABLET PO ONE (22:52)
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
[2019-01-14 23:05] VITALS: BP 155/77
--- NOTE | 2019-01-15 12:39 | EKG REPORT ---
SEVERITY:- ABNORMAL ECG - SINUS RHYTHM NONSPECIFIC INTRAVENTRICULAR CONDUCTION DELAY : Confirmed by: Sushma Washington MD 15-Jan-2019 12:38:50
== END 2019-01-14 23:05 | disposition home or self-care (01) ==
LOC: ER 18:59
DX: J44.1 Chronic obstructive pulmonary disease with (acute) exacerbation (principal); T78.40XA Allergy, unspecified, initial encounter; R09.89 Other specified symptoms and signs involving the circulatory and respiratory systems; R05 Cough; R09.81 Nasal congestion; R09.82 Postnasal drip; J34.89 Other specified disorders of nose and nasal sinuses; J02.9 Acute pharyngitis, unspecified; I50.9 Heart failure, unspecified; I25.10 Atherosclerotic heart disease of native coronary artery without angina pectoris; E11.9 Type 2 diabetes mellitus without complications; Z79.4 Long term (current) use of insulin; Z87.891 Personal history of nicotine dependence
CPT/HCPCS: 93005; 99284; 36415; 82962; 85025; 80053; 81001; 84484; 83880; 71046; 93010; J7512; J7030

== ENCOUNTER 2019-01-22 18:52 | Inpatient (IN) | payer MEDICAID ==
[2019-01-22] MEDS ORDERED: NORMAL SALINE 1000 ML 1,000 ML IV ONE (21:09)
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
--- NOTE | 2019-01-22 21:47 | RADIOLOGY REPORT (SQ) ---
EXAM DESCRIPTION: XR CHEST 1 VIEW COMPLETED DATE/TME: 01/22/2019 21:09 CLINICAL HISTORY: 63 years, Male, sob Findings: Heart is mildly enlarged. No pneumothorax. No pulmonary edema. No consolidations. No pleural effusions. IMPRESSION: No acute disease.
--- NOTE | 2019-01-22 21:48 | RADIOLOGY REPORT (SQ) ---
EXAM DESCRIPTION: CT HEAD WITHOUT IV CONTRAST COMPLETED DATE/TME: 01/22/2019 21:09 CLINICAL HISTORY: 63 years, Male, numbness all over This exam was performed according to our departmental dose-optimization program which includes automated exposure control, adjustment of the mA and/or kVp according to patient size and/or use of iterative reconstruction technique where applicable. FINDINGS: No acute intracranial hemorrhage, mass effect or midline shift. No extra-axial fluid collections. Ventricles and subarachnoid spaces are mildly dilated consistent with cerebral atrophy. Mild patchy hypodense areas in periventricular white matter of both cerebral hemispheres consistent with chronic small vessel ischemic changes. Visualized paranasal sinuses and the mastoid air cells are clear. The skull is intact. IMPRESSION: No acute intracranial hemorrhage.
[2019-01-22 22:45] LABS: HEMATOCRIT 45.8 % (37.9-51.0); HEMOGLOBIN 15.1 g/dL (13.5-17.0); MEAN CORPUSCULAR HEMOGLOBIN 27.8 pg (27.0-33.4); MEAN CORPUSCULAR VOLUME 84 fl (80-97); PLATELET COUNT 300 10^3/uL (150-450); RED BLOOD COUNT 5.44 10^6/uL (4.35-5.55); RED CELL DISTRIBUTION WIDTH 14.7 % (11.5-14.0); WHITE BLOOD COUNT 10.8 10^3/uL (4.0-10.5)
[2019-01-22 23:00] LABS: ALANINE AMINOTRANSFERASE 34 U/L (21-72); ALBUMIN 4.4 g/dL (3.5-5.0); ALKALINE PHOSPHATASE 133 U/L (38-126); ANION GAP 12 (5-19); ASPARTATE AMINO TRANSFERASE 25 U/L (17-59); BILIRUBIN,DIRECT 0.4 mg/dL (0.0-0.4); BILIRUBIN,TOTAL 0.7 mg/dL (0.2-1.3); BLOOD UREA NITROGEN 53 mg/dL (7-20); CALCIUM 9.5 mg/dL (8.4-10.2); CARBON DIOXIDE 22 mmol/L (22-30); CHLORIDE 98 mmol/L (98-107); CREATINE KINASE 91 U/L (55-170); SODIUM 131.7 mmol/L (137-145); TOTAL PROTEIN 7.8 g/dL (6.3-8.2)
[2019-01-22 23:06] LABS: ABSOLUTE LYMPHOCYTES# (MANUAL) 1.9 10^3/uL (0.5-4.7); ABSOLUTE MONOCYTES # (MANUAL) 0.4 10^3/uL (0.1-1.4); ABSOLUTE NEUTROPHILS# (MANUAL) 8.4 10^3/uL (1.7-8.2); BASOPHILS % (MANUAL) 0 % (0-2); EOSINOPHILS % (MANUAL) 0 % (0-6); LYMPHOCYTES % (MANUAL) 18 % (13-45); MONOCYTES % (MANUAL) 4 % (3-13); SEGMENTED NEUTROPHILS % (MAN) 78 % (42-78); TOTAL CELLS COUNTED 100
[2019-01-22 23:07] LABS: ANISOCYTOSIS SLIGHT; PLATELET COMMENT ADEQUATE
[2019-01-22] MEDS ORDERED: INSULIN REG, HUMAN 100 UNIT/ML 3 ML VIAL (PYX) SUBCUT ONE (23:07)
[2019-01-22 23:12] LABS: CREATINE KINASE MB 1.92 ng/mL (<4.55)
[2019-01-22 23:14] LABS: GLUCOSE 510 mg/dL (75-110)
[2019-01-22 23:15] LABS: POTASSIUM 8.7 mmol/L (3.6-5.0)
[2019-01-22 23:18] LABS: FREE T4 (FREE THYROXINE) 1.05 ng/dL (0.78-2.19)
[2019-01-22 23:20] LABS: TROPONIN I < 0.012 ng/mL
[2019-01-22 23:31] LABS: THYROID STIMULATING HORMONE 1.42 uIU/mL (0.47-4.68)
[2019-01-22] MEDS ORDERED: ALBUTEROL SULFATE 0.083% NEB 2.5 MG/3 ML AMPUL NEB ONE (23:36)
[2019-01-22 23:52] LABS: APPEARANCE,URINE CLEAR; BILIRUBIN,URINE NEGATIVE (NEGATIVE); COLOR,URINE YELLOW; GLUCOSE, URINE >=500 mg/dL (NEGATIVE); KETONES,URINE NEGATIVE (NEGATIVE); LEUKOCYTE ESTERASE,URINE NEGATIVE (NEGATIVE); NITRITE,URINE NEGATIVE (NEGATIVE); PROTEIN,URINE NEGATIVE (NEGATIVE); URINE SPECIFIC GRAVITY 1.023; UROBILINOGEN,URINE NEGATIVE mg/dL (<2.0)
[2019-01-23 00:20] LABS: VENOUS BLOOD BASE EXCESS -3.4 mmol/L; VENOUS BLOOD HCO3 22.4 mmol/L (20-32); VENOUS BLOOD PCO2 43.2 mmHg (35-63); VENOUS BLOOD PH 7.33 (7.30-7.42)
[2019-01-23 00:38] LABS: ANION GAP 7 (5-19); BLOOD UREA NITROGEN 53 mg/dL (7-20); CALCIUM 8.6 mg/dL (8.4-10.2); CARBON DIOXIDE 22 mmol/L (22-30); CHLORIDE 105 mmol/L (98-107); GLUCOSE 315 mg/dL (75-110); SODIUM 134.4 mmol/L (137-145)
[2019-01-23 00:51] LABS: POTASSIUM 5.9 mmol/L (3.6-5.0)
[2019-01-23] MEDS ORDERED: NORMAL SALINE 1000 ML 1,000 ML IV ONE (01:40)
[2019-01-23] MEDS ORDERED: ACETAMINOPHEN 325 MG TABLET PO PRN (01:47)
[2019-01-23] MEDS ORDERED: IPRATROPIUM/ALBUTEROL 0.5-2.5 MG/3 ML AMPUL NEB PRN (01:47)
[2019-01-23] MEDS ORDERED: DEXTROSE 40% GEL 15 GM TUBE PO PRN ×2 (01:51)
[2019-01-23] MEDS ORDERED: DEXTROSE 50%-WATER 25 GM/50 ML DISP.SYRIN IV PRN ×2 (01:51)
[2019-01-23] MEDS ORDERED: GLUCAGON,HUMAN RECOMB 1 MG INJ IM PRN (01:51)
[2019-01-23 02:25] LABS: CREATINE KINASE MB 1.31 ng/mL (<4.55)
[2019-01-23 02:26] LABS: TROPONIN I < 0.012 ng/mL
[2019-01-23 06:45] LABS: CREATINE KINASE MB 0.98 ng/mL (<4.55)
[2019-01-23 06:51] LABS: TROPONIN I < 0.012 ng/mL
--- NOTE | 2019-01-23 08:00 | EKG REPORT ---
SEVERITY:- OTHERWISE NORMAL ECG - SINUS RHYTHM BORDERLINE LEFT AXIS DEVIATION : Confirmed by: Javad Jennings MD 23-Jan-2019 07:59:30
[2019-01-23 08:56] LABS: ANION GAP 13 (5-19); BLOOD UREA NITROGEN 41 mg/dL (7-20); CALCIUM 9.6 mg/dL (8.4-10.2); CARBON DIOXIDE 21 mmol/L (22-30); CHLORIDE 107 mmol/L (98-107); GLUCOSE 145 mg/dL (75-110)
[2019-01-23 09:06] LABS: POTASSIUM 4.7 mmol/L (3.6-5.0)
[2019-01-23] MEDS: INSULIN LISPRO 100 UNIT/ML 3 ML VIAL SUBCUT SCH ×5 (09:23→22:02)
[2019-01-23 09:36] LABS: APPEARANCE,URINE CLEAR; BILIRUBIN,URINE NEGATIVE (NEGATIVE); COLOR,URINE YELLOW; GLUCOSE, URINE >=500 mg/dL (NEGATIVE); KETONES,URINE NEGATIVE (NEGATIVE); LEUKOCYTE ESTERASE,URINE NEGATIVE (NEGATIVE); NITRITE,URINE NEGATIVE (NEGATIVE); PROTEIN,URINE NEGATIVE (NEGATIVE); URINE SPECIFIC GRAVITY 1.025; UROBILINOGEN,URINE NEGATIVE mg/dL (<2.0)
[2019-01-23] MEDS: ENOXAPARIN SODIUM INJ 40 MG/0.4 ML DISP.SYRIN SUBCUT SCH (10:00)
--- NOTE | 2019-01-23 13:16 | EKG REPORT ---
SEVERITY:- BORDERLINE ECG - SINUS RHYTHM PAC : Confirmed by: Javad Jennings MD 23-Jan-2019 13:16:09
[2019-01-23] MEDS ORDERED: ALBUTEROL SULFATE 0.083% NEB 2.5 MG/3 ML AMPUL NEB PRN ×2 (13:33→13:38)
[2019-01-23] MEDS ORDERED: ALBUTEROL SULFATE HFA (90 MCG/PUFF) 200 PUFF/8.5 GM MDI IH PRN (13:33)
[2019-01-23] MEDS: NORMAL SALINE 1000 ML 1,000 ML IV PRN (13:37)
--- NOTE | 2019-01-23 13:38 | PDOC H&P ---
History of Present Illness Admission Date/PCP: 01/23/19 01:44 ZAIRE GEIGER MD Patient complains of: Tingling all over History of Present Illness: TAHIR FOURNIER is a 63 year old male This is a 63-year-old male with a history of the type 2 diabetes on insulin depe ndent history of coronary artery disease status post stent currently seeing Dr. Victor in [place] history of the hypertension's history of the hyperlipidemia and multiple other medical problems came to the emergency department with a complaining of a tingling all over the place and not feeling well and emergency department patient's blood sugar was 510 and potassium was 8.7 Patient is giving the insulin and IV fluid and patient's potassium coming down to 5.9 Patient was in emergency department on January 14 for the cough congestions possible pneumonia patient's was giving the steroid and I believe the steroid makes the blood sugars goes up Patients denied any chest pain to than any shortness of the breath Patient CT of the head was negative for any acute stroke Patient's when I saw right alert awake oriented x3 Patient is pretty much wants to go home and feel better Patient's potassium is back to the normal Patient in acute renal failure currently getting better At this point decided to admit for the next 24-hour for further evaluations Past Medical History Cardiac Medical History: Reports: Coronary Artery Disease - CARDIAC STENTS X5, Hyperlipidema, Hypertension Denies: Atrial Fibrillation, Congestive Heart Failure, Myocardial Infarction, Peripheral Vascular Disease, Pulmonary Embolism Pulmonary Medical History: Reports: Asthma, Bronchitis, Chronic Obstructive Pulmonary Disease (COPD), Pneumonia, Sleep Apnea Denies: Respiratory Failure, Tuberculosis Neurological Medical History: Denies: Seizures Endocrine Medical History: Reports: Diabetes Mellitus Type 2 Denies: Hyperthyroidism, Hypothyroidism Renal/ Medical History: Reports: Chronic Kidney Disease Denies: End Stage Renal Disease Malignancy Medical History: Denies: Leukemia, Lung Cancer GI Medical History: Reports: Gastroesophageal Reflux Disease, Hiatal Hernia Denies: Crohn's Disease Musculoskeltal Medical History: Reports: Arthritis - bursitis left shoulder, back bone spurs Denies: Fibromyalgia Psychiatric Medical History: Reports: Depression - situational Denies: Bipolar Disorder, Dementia, Post Traumatic Stress Disorder Hematology: Reports: Anemia Infectious Medical History: Denies: HIV Past Surgical History Past Surgical History: Reports: Cardiac Catheterization - 5 stents, Cholecystectomy, Coronary Stent, Orthopedic Surgery - right leg, back surgery, Tonsillectomy Denies: Appendectomy, Colostomy, Coronary Artery Bypass Graft, Gastric Bypass Surgery, Herniorrhaphy, Pacemaker Social History Lives with: Family, Spouse/Significant other Smoking Status: Former Smoker Cigarettes Packs Per Day: 3 Last Time Smoked: 199. Frequency of Alcohol Use: Occasional Hx Recreational Drug Use: No Drugs: None Hx Prescription Drug Abuse: No Family History Family History: Reviewed & Not Pertinent, Arthritis, CAD, CVA, DM, Hyperlipidemia, Hypertension, Malignancy Parental Family History Reviewed: Yes Children Family History Reviewed: Yes Sibling(s) Family History Reviewed.: Yes Medication/Allergy Home Medications: Albuterol Sulfate [Proair Hfa Inhalation Aerosol 8.5 gm Mdi] 2 puff IH Q6HP PRN 01/23/19 Albuterol Sulfate [Ventolin 0.083% Neb 2.5 mg/3 ml Ampul] 1 vial NEB RTTIDP PRN 01/23/19 Amlodipine Besylate [Norvasc 5 mg Tablet] 5 mg PO DAILY 01/23/19 Atorvastatin Calcium [Lipitor 40 mg Tablet] 40 mg PO DAILY 01/23/19 Exenatide Microspheres [Bydureon Pen] 2 mg SQ CHAPMAN@1000 01/23/19 Finasteride [Proscar 5 mg Tablet] 5 mg PO DAILY 01/23/19 Gabapentin [Neurontin 100 mg Capsule] 100 mg PO Q12 01/23/19 Insulin Aspart [Novolog Flexpen] 40 unit SQ TID 01/23/19 Insulin Glargine,Hum.rec.anlog [Lantus Insulin Inj 300 Unit/3 ml Pen] 80 unit SUBCUT QHS 01/23/19 Isosorbide Mononitrate [Imdur 60 mg Tablet.er] 60 mg PO DAILY 01/23/19 Linagliptin [Tradjenta] 5 mg PO DAILY 01/23/19 Lisinopril [Prinivil 10 mg Tablet] 10 mg PO DAILY 01/23/19 Metoprolol Tartrate [Lopressor 25 mg Tablet] 25 mg PO Q12 01/23/19 Montelukast Sodium [Singulair 10 mg Tablet] 10 mg PO DAILY 01/23/19 Omeprazole 40 mg PO DAILY 01/23/19 Allergies/Adverse Reactions: clopidogrel bisulfate [From Plavix] Adverse Reaction (Severe, Verified 01/14/19 19:00) bleeding from ear/NOSE Review of Systems Constitutional: PRESENT: weakness. ABSENT: chills, fever(s), headache(s), weight gain, weight loss Eyes: ABSENT: visual disturbances Ears: ABSENT: hearing changes Cardiovascular: ABSENT: chest pain, dyspnea on exertion, edema, orthropnea, palpitations Respiratory: ABSENT: cough, hemoptysis Gastrointestinal: ABSENT: abdominal pain, constipation, diarrhea, hematemesis, hematochezia, nausea, vomiting Genitourinary: ABSENT: dysuria, hematuria Musculoskeletal: ABSENT: joint swelling Integumentary: ABSENT: rash, wounds Neurological: ABSENT: abnormal gait, abnormal speech, confusion, dizziness, focal weakness, syncope Psychiatric: ABSENT: anxiety, depression, homidical ideation, suicidal ideation Endocrine: ABSENT: cold intolerance, heat intolerance, menstrual abnormalities, polydipsia, polyuria Hematologic/Lymphatic: ABSENT: easy bleeding, easy bruising, lymphadenopathy Physical Exam Vital Signs: Temp Pulse Resp BP Pulse Ox 97.7 F 63 20 113/99 H 97 01/23/19 12:21 01/23/19 12:21 01/23/19 12:21 01/23/19 12:21 01/23/19 12:21 Intake & Output 01/22/19 01/23/19 01/24/19 06:59 06:59 06:59 Intake Total 1000 1000 Balance 1000 1000 Weight 84.7 kg 80.8 kg General appearance: PRESENT: no acute distress, well-developed, well-nourished Head exam: PRESENT: atraumatic, normocephalic Eye exam: PRESENT: conjunctiva pink, EOMI, PERRLA. ABSENT: scleral icterus Ear exam: PRESENT: normal external ear exam Mouth exam: PRESENT: moist, tongue midline Neck exam: PRESENT: full ROM. ABSENT: carotid bruit, JVD, lymphadenopathy, thyromegaly Respiratory exam: PRESENT: clear to auscultation raya Cardiovascular exam: PRESENT: RRR. ABSENT: diastolic murmur, rubs, systolic murmur Vascular exam: PRESENT: normal capillary refill GI/Abdominal exam: PRESENT: normal bowel sounds, soft. ABSENT: distended, guarding, mass, organolmegaly, rebound, tenderness Rectal exam: PRESENT: deferred Extremities exam: ABSENT: pedal edema Musculoskeletal exam: PRESENT: ambulatory Neurological exam: PRESENT: alert, awake, oriented to person, oriented to place, oriented to time, oriented to situation, reflexes normal, CN II-XII grossly intact, normal gait. ABSENT: motor sensory deficit Psychiatric exam: PRESENT: appropriate affect, normal mood. ABSENT: homicidal ideation, suicidal ideation Skin exam: PRESENT: dry, intact, warm. ABSENT: cyanosis, rash Results Laboratory Results: 01/22/19 19:39 01/23/19 08:27 01/22/19 01/22/19 01/22/19 19:39 19:39 19:39 WBC 10.8 H RBC 5.44 Hgb 15.1 Hct 45.8 MCV 84 MCH 27.8 MCHC 33.0 RDW 14.7 H Plt Count 300 Seg Neutrophils % Not Reportable Lymphocytes % Not Reportable Monocytes % Not Reportable Eosinophils % Not Reportable Basophils % Not Reportable Absolute Neutrophils Not Reportable Absolute Lymphocytes Not Reportable Absolute Monocytes Not Reportable Absolute Eosinophils Not Reportable Absolute Basophils Not Reportable VBG pH VBG pCO2 VBG HCO3 VBG Base Excess Sodium 131.7 L Potassium 8.7 H* Chloride 98 Carbon Dioxide 22 Anion Gap 12 BUN 53 H Creatinine 1.80 H Est GFR ( Amer) 46 L Est GFR (Non-Af Amer) 38 L Glucose 510 H* Calcium 9.5 Total Bilirubin 0.7 AST 25 ALT 34 Alkaline Phosphatase 133 H Total Protein 7.8 Albumin 4.4 TSH 1.42 Free T4 1.05 Urine Color Urine Appearance Urine pH Ur Specific [place] Urine Protein Urine Glucose (UA) Urine Ketones Urine Blood Urine Nitrite Ur Leukocyte Esterase Urine WBC (Auto) Urine RBC (Auto) 01/22/19 01/23/19 01/23/19 22:42 00:05 00:05 WBC RBC Hgb Hct MCV MCH MCHC RDW Plt Count Seg Neutrophils % Lymphocytes % Monocytes % Eosinophils % Basophils % Absolute Neutrophils Absolute Lymphocytes Absolute Monocytes Absolute Eosinophils Absolute Basophils VBG pH 7.33 VBG pCO2 43.2 VBG HCO3 22.4 VBG Base Excess -3.4 Sodium 134.4 L Potassium 5.9 H D Chloride 105 Carbon Dioxide 22 Anion Gap 7 BUN 53 H Creatinine 1.43 H Est GFR ( Amer) > 60 Est GFR (Non-Af Amer) 50 L Glucose 315 H Calcium 8.6 Total Bilirubin AST ALT Alkaline Phosphatase Total Protein Albumin TSH Free T4 Urine Color YELLOW Urine Appearance CLEAR Urine pH 5.0 Ur Specific [place] 1.023 Urine Protein NEGATIVE Urine Glucose (UA) >=500 H Urine Ketones NEGATIVE Urine Blood NEGATIVE Urine Nitrite NEGATIVE Ur Leukocyte Esterase NEGATIVE Urine WBC (Auto) 0 Urine RBC (Auto) 1 01/23/19 01/23/19 08:27 09:18 WBC RBC Hgb Hct MCV MCH MCHC RDW Plt Count Seg Neutrophils % Lymphocytes % Monocytes % Eosinophils % Basophils % Absolute Neutrophils Absolute Lymphocytes Absolute Monocytes Absolute Eosinophils Absolute Basophils VBG pH VBG pCO2 VBG HCO3 VBG Base Excess Sodium 141.0 Potassium 4.7 D Chloride 107 Carbon Dioxide 21 L Anion Gap 13 BUN 41 H Creatinine 1.09 Est GFR ( Amer) > 60 Est GFR (Non-Af Amer) > 60 Glucose 145 H Calcium 9.6 Total Bilirubin AST ALT Alkaline Phosphatase Total Protein Albumin TSH Free T4 Urine Color YELLOW Urine Appearance CLEAR Urine pH 5.0 Ur Specific [place] 1.025 Urine Protein NEGATIVE Urine Glucose (UA) >=500 H Urine Ketones NEGATIVE Urine Blood NEGATIVE Urine Nitrite NEGATIVE Ur Leukocyte Esterase NEGATIVE Urine WBC (Auto) 1 Urine RBC (Auto) 0 01/22/19 01/22/19 01/23/19 19:39 19:39 00:05 Creatine Kinase 91 67 CK-MB (CK-2) 1.92 Troponin I < 0.012 01/23/19 01/23/19 01/23/19 00:05 06:00 06:00 Creatine Kinase 50 L CK-MB (CK-2) 1.31 0.98 Troponin I < 0.012 < 0.012 Impressions: Chest X-Ray 01/22/19 21:09 IMPRESSION: No acute disease. Head CT 01/22/19 21:09 IMPRESSION: No acute intracranial hemorrhage. Assessment & Plan - Diagnosis (1) Hyperglycemia due to type 2 diabetes mellitus Qualifiers: Diabetes mellitus custodial insulin use: unspecified custodial insulin use status Qualified Code(s): E11.65 - Type 2 diabetes mellitus with hyperglycemia Is this a current diagnosis for this admission?: Yes Plan: Continues to insulin sliding scale and home medications currently doing better (2) Hyperkalemia Is this a current diagnosis for this admission?: Yes Plan: Currently all resolved (3) Acute kidney failure Qualifiers: Acute renal failure type: unspecified Qualified Code(s): N17.9 - Acute kidney failure, unspecified Is this a current diagnosis for this admission?: Yes Plan: Will continues to IV fluid (4) Coronary artery disease Qualifiers: Coronary Disease-Associated Artery/Lesion type: unspecified vessel or lesion type Is this a current diagnosis for this admission?: Yes Plan: Will rule out acute coronary syndromes (5) Dehydration Is this a current diagnosis for this admission?: Yes Plan: Continues to IV fluid (6) Hypertension Qualifiers: Hypertension type: essential hypertension Is this a current diagnosis for this admission?: Yes Plan: Currently all stable (7) Sleep apnea syndrome Qualifiers: Sleep apnea type: unspecified type Is this a current diagnosis for this admission?: Yes Plan: CPAP (8) Type 2 diabetes mellitus Qualifiers: Diabetes mellitus custodial insulin use: with rodent exterminator use Diabetes mellitus complication status: with unspecified complications Qualified Code(s): E11.8 - Type 2 diabetes mellitus with unspecified complications; Z79.4 - long term care social worker (current) use of insulin Is this a current diagnosis for this admission?: Yes Plan: Continues to use a sliding scale (9) Cough Is this a current diagnosis for this admission?: Yes Plan: Continues use the nebulizer chest x-ray is clear - Time Time Spent: 30 to 50 Minutes Medications reviewed and adjusted accordingly: Yes Anticipated discharge: Home Within: Other - Inpatient Certification Based on my medical assessment, after consideration of the patient's comorbidities, presenting symptoms, or acuity I expect that the services needed warrant INPATIENT care.: Yes I certify that my determination is in accordance with my understanding of Medicare's requirements for reasonable and necessary INPATIENT services [42 CFR 412.3e].: Yes Medical Necessity: Significant Comorbidiites Make Outpatient Treatment Too Risky, Need Close Monitoring Due to Risk of Patient Decompensation, Need For IV Fluids Post Hospital Care: D/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
[2019-01-23] MEDS ORDERED: INSULIN ASPART 40 UNIT SQ SCH (14:00)
[2019-01-23 14:15] LABS: TROPONIN I < 0.012 ng/mL
[2019-01-23] MEDS: METOPROLOL TARTRATE 25 MG TABLET PO SCH (21:56)
[2019-01-23] MEDS: GABAPENTIN 100 MG CAPSULE PO SCH (21:56)
[2019-01-23] MEDS ORDERED: INSULIN GLARGINE,HUM.REC.ANLOG 300 UNIT/3 ML INSULN.PEN SUBCUT SCH (22:00)
[2019-01-24] MEDS: NORMAL SALINE 1000 ML 1,000 ML IV PRN (02:49)
[2019-01-24 05:12] LABS: HEMATOCRIT 41.3 % (37.9-51.0); MEAN CORPUSCULAR HEMOGLOBIN 27.6 pg (27.0-33.4); MEAN CORPUSCULAR HGB CONC 33.9 g/dL (32.0-36.0); MEAN CORPUSCULAR VOLUME 81 fl (80-97); PLATELET COUNT 208 10^3/uL (150-450); RED BLOOD COUNT 5.07 10^6/uL (4.35-5.55); RED CELL DISTRIBUTION WIDTH 14.3 % (11.5-14.0); WHITE BLOOD COUNT 7.1 10^3/uL (4.0-10.5)
[2019-01-24 05:25] LABS: ALANINE AMINOTRANSFERASE 36 U/L (21-72); ALBUMIN 3.7 g/dL (3.5-5.0); ALKALINE PHOSPHATASE 98 U/L (38-126); ANION GAP 9 (5-19); ASPARTATE AMINO TRANSFERASE 28 U/L (17-59); BILIRUBIN,DIRECT 0.3 mg/dL (0.0-0.4); BILIRUBIN,TOTAL 0.5 mg/dL (0.2-1.3); BLOOD UREA NITROGEN 22 mg/dL (7-20); CALCIUM 9.3 mg/dL (8.4-10.2); CARBON DIOXIDE 20 mmol/L (22-30); CHLORIDE 108 mmol/L (98-107); GLUCOSE 143 mg/dL (75-110); POTASSIUM 4.9 mmol/L (3.6-5.0); SODIUM 136.8 mmol/L (137-145); TOTAL PROTEIN 6.5 g/dL (6.3-8.2)
[2019-01-24 05:28] LABS: ABSOLUTE LYMPHOCYTES# (MANUAL) 3.3 10^3/uL (0.5-4.7); ABSOLUTE MONOCYTES # (MANUAL) 0.2 10^3/uL (0.1-1.4); ABSOLUTE NEUTROPHILS# (MANUAL) 3.4 10^3/uL (1.7-8.2); BASOPHILS % (MANUAL) 0 % (0-2); EOSINOPHILS % (MANUAL) 2 % (0-6); LYMPHOCYTES % (MANUAL) 47 % (13-45); MONOCYTES % (MANUAL) 3 % (3-13); SEGMENTED NEUTROPHILS % (MAN) 48 % (42-78); TOTAL CELLS COUNTED 100
[2019-01-24 05:29] LABS: ANISOCYTOSIS 1+; HYPOCHROMASIA 1+; PLATELET COMMENT ADEQUATE; POLYCHROMASIA 1+
[2019-01-24] MEDS: INSULIN LISPRO 100 UNIT/ML 3 ML VIAL SUBCUT SCH ×3 (07:53→11:00)
[2019-01-24] MEDS ORDERED: MONTELUKAST SODIUM 10 MG TABLET PO SCH (10:00)
[2019-01-24] MEDS ORDERED: PANTOPRAZOLE SODIUM 40 MG TABLET.DR PO SCH (10:00)
[2019-01-24] MEDS ORDERED: LISINOPRIL 10 MG TABLET PO SCH (10:00)
[2019-01-24] MEDS ORDERED: ISOSORBIDE MONONITRATE 60 MG TAB.ER.24H PO SCH (10:00)
[2019-01-24] MEDS ORDERED: (PENDING PHARMACY ID) (Linagliptin [Tradjenta] 5 MG) PO SCH (10:00)
[2019-01-24] MEDS ORDERED: SITAGLIPTIN PHOSPHATE 50 MG TABLET PO SCH (10:00)
[2019-01-24] MEDS ORDERED: AMLODIPINE BESYLATE 5 MG TABLET PO SCH (10:00)
[2019-01-24] MEDS ORDERED: FINASTERIDE 5 MG TABLET PO SCH (10:00)
[2019-01-24] MEDS ORDERED: ATORVASTATIN CALCIUM 40 MG TABLET PO SCH (10:00)
[2019-01-24 10:44] VITALS: BP 113/99
[2019-01-24] MEDS: METOPROLOL TARTRATE 25 MG TABLET PO SCH (10:59)
[2019-01-24] MEDS: ENOXAPARIN SODIUM INJ 40 MG/0.4 ML DISP.SYRIN SUBCUT SCH (10:59)
[2019-01-24] MEDS: GABAPENTIN 100 MG CAPSULE PO SCH (10:59)
[2019-01-25] MEDS ORDERED: (PENDING PHARMACY ID) (Exenatide Microspheres [Bydureon Pen] 2 MG) SQ SCH (10:00)
--- NOTE | 2019-01-25 11:05 | PDOC DISCHARGE SUMMARY ---
General - Admit/Disc Date/PCP Admission Date/Primary Care Provider: 01/23/19 01:44 ZAIRE GEIGER MD Discharge Date: 01/24/19 - Discharge Diagnosis (1) Hyperglycemia due to type 2 diabetes mellitus Is this a current diagnosis for this admission?: Yes Summary: Currently all resolved (2) Hyperkalemia Is this a current diagnosis for this admission?: Yes Summary: due to the leg cramps he is eating a lot of banana suggest to discontinue his all the high potassium diet currently all resolved (3) Acute kidney failure Is this a current diagnosis for this admission?: Yes Summary: Currently all resolved (4) Coronary artery disease Is this a current diagnosis for this admission?: Yes Summary: Currently all stable (5) Dehydration Is this a current diagnosis for this admission?: Yes Summary: Currently all resolved (6) Hypertension Is this a current diagnosis for this admission?: Yes Summary: All stable (7) Sleep apnea syndrome Is this a current diagnosis for this admission?: Yes (8) Type 2 diabetes mellitus Is this a current diagnosis for this admission?: Yes Summary: Continues to current medications (9) Cough Is this a current diagnosis for this admission?: Yes Summary: Mild bronchitis Start the patient on antibiotic Drops - Additional Information Discharge Diet: Cardiac Discharge Activity: Activity As Tolerated Prescriptions: Benzonatate [Tessalon Perle 100 mg Capsule] 100 mg PO Q8HP PRN #30 cap PRN Reason: Cefdinir [Omnicef 300 mg Capsule] 1 cap PO BID #14 capsule Home Medications: Albuterol Sulfate [Proair HFA Inhalation Aerosol 8.5 gm MDI] 2 puff IH Q6HP PRN 01/23/19 Albuterol Sulfate [Ventolin 0.083% Neb 2.5 mg/3 mL Ampul] 1 vial NEB RTTIDP PRN 01/23/19 Amlodipine Besylate [Norvasc 5 mg Tablet] 5 mg PO DAILY 01/23/19 Atorvastatin Calcium [Lipitor 40 mg Tablet] 40 mg PO DAILY 01/23/19 Exenatide Microspheres [Bydureon Pen] 2 mg SQ CHAPMAN@1000 01/23/19 Finasteride [Proscar 5 mg Tablet] 5 mg PO DAILY 01/23/19 Gabapentin [Neurontin 100 mg Capsule] 100 mg PO Q12 01/23/19 Insulin Aspart [Novolog Flexpen] 40 unit SQ TID 01/23/19 Insulin Glargine,Hum.rec.anlog [Lantus Insulin 100 Unit/mL] 80 unit SUBCUT QHS 01/23/19 Isosorbide Mononitrate [Imdur 60 mg Tablet.er] 60 mg PO DAILY 01/23/19 Linagliptin [Tradjenta] 5 mg PO DAILY 01/23/19 Lisinopril [Prinivil 10 mg Tablet] 10 mg PO DAILY 01/23/19 Metoprolol Tartrate [Lopressor 25 mg Tablet] 25 mg PO Q12 01/23/19 Montelukast Sodium [Singulair 10 mg Tablet] 10 mg PO DAILY 01/23/19 Omeprazole 40 mg PO DAILY 01/23/19 Benzonatate [Tessalon Perle 100 mg Capsule] 100 mg PO Q8HP PRN #30 cap 01/24/19 Cefdinir [Omnicef 300 mg Capsule] 1 cap PO BID #14 capsule 01/24/19 History of Present Illness History of Present Illness: TAHIR FOURNIER is a 63 year old male This is a 63-year-old male with a history of the type 2 diabetes on insulin dependent history of coronary artery disease status post stent currently seeing Dr. Victor in [place] history of the hypertension's history of the hyperlipidemia and multiple other medical problems came to the emergency department with a complaining of a tingling all over the place and not feeling well and emergency department patient's blood sugar was 510 and potassium was 8 .7 Patient is giving the insulin and IV fluid and patient's potassium coming down to 5.9 Patient was in emergency department on January 14 for the cough congestions possible pneumonia patient's was giving the steroid and I believe the steroid makes the blood sugars goes up Patients denied any chest pain to than any shortness of the breath Patient CT of the head was negative for any acute stroke Patient's when I saw right alert awake oriented x3 Patient is pretty much wants to go home and feel better Patient's potassium is back to the normal Patient in acute renal failure currently getting better At this point decided to admit for the next 24-hour for further evaluations Hospital Course Hospital Course: Is a 63-year-old male with multiple medical problems as above came to the emergency departments with the not feeling well Patient's potassium was 8.7 given insulin in the medications and the potassium is coming down to 5.9 patient's was giving the IV fluid Patient is recently getting the prednisone from the ER came with a bronchitis and mixed the blood sugars go up and top of the pets patient is eating a lot of carbs including the banana Patient's response very well with the IV fluid and patient is back to the baseline Patient's desire to go home Discussed with the patient's to low potassium diet Discussed with the family also on the bedside Physical Exam Vital Signs: Temp Pulse Resp BP Pulse Ox 97.9 F 59 L 16 113/99 H 95 01/24/19 10:43 01/24/19 10:43 01/24/19 10:43 01/24/19 10:43 01/24/19 10:43 Intake & Output 01/24/19 01/25/19 01/26/19 06:59 06:59 06:59 Intake Total 2890 Output Total 1300 Balance 1590 Weight 81.4 kg General appearance: PRESENT: no acute distress, well-developed, well-nourished Head exam: PRESENT: atraumatic, normocephalic Eye exam: PRESENT: conjunctiva pink, EOMI, PERRLA. ABSENT: scleral icterus Ear exam: PRESENT: normal external ear exam Mouth exam: PRESENT: moist, tongue midline Neck exam: PRESENT: full ROM. ABSENT: carotid bruit, JVD, lymphadenopathy, thyromegaly Respiratory exam: PRESENT: clear to auscultation raya Cardiovascular exam: PRESENT: RRR. ABSENT: diastolic murmur, rubs, systolic murmur Pulses: PRESENT: normal dorsalis pedis pul, +2 pedal pulses bilateral Vascular exam: PRESENT: normal capillary refill GI/Abdominal exam: PRESENT: normal bowel sounds, soft. ABSENT: distended, guarding, mass, organolmegaly, rebound, tenderness Rectal exam: PRESENT: deferred Extremities exam: PRESENT: pedal edema Musculoskeletal exam: PRESENT: ambulatory Neurological exam: PRESENT: alert, awake, oriented to person, oriented to place, oriented to time, oriented to situation, CN II-XII grossly intact. ABSENT: motor sensory deficit Psychiatric exam: PRESENT: appropriate affect, normal mood. ABSENT: homicidal ideation, suicidal ideation Skin exam: PRESENT: dry, intact, warm. ABSENT: cyanosis, rash Results Laboratory Results: 01/24/19 04:42 01/24/19 04:42 01/22/19 01/22/19 01/23/19 19:39 19:39 00:05 Creatine Kinase 91 67 CK-MB (CK-2) 1.92 Troponin I < 0.012 01/23/19 01/23/19 01/23/19 00:05 06:00 06:00 Creatine Kinase 50 L CK-MB (CK-2) 1.31 0.98 Troponin I < 0.012 < 0.012 01/23/19 01/23/19 12:50 12:50 Creatine Kinase 53 L CK-MB (CK-2) 1.00 Troponin I < 0.012 Impressions: Chest X-Ray 01/22/19 21:09 IMPRESSION: No acute disease. Head CT 01/22/19 21:09 IMPRESSION: No acute intracranial hemorrhage. Qualifiers - * PATIENT BEING DISCHARGED WITH ANY OF THE FOLLOWING DIAGNOSIS: No VTE patient discharged on overlapping Therapy?: Yes Plan Time Spent: Greater than 30 Minutes - Discharge home with the stable conditions
== END 2019-01-24 11:04 | disposition home or self-care (01) | DRG 684 ==
LOC: ER 18:52 → EH 01-23 01:44 → 3S 01-23 12:19
PROVIDERS: ADMIT Family Medicine; ATTEND Family Medicine
PROC: 3E0F73Z Introduction of Anti-inflammatory into Respiratory Tract, Via Natural or Artificial Opening (ICD-10-PCS; principal; 2019-01-23)
DX: N17.9 Acute kidney failure, unspecified (principal); E11.65 Type 2 diabetes mellitus with hyperglycemia; E87.5 Hyperkalemia; I25.10 Atherosclerotic heart disease of native coronary artery without angina pectoris; E86.0 Dehydration; I10 Essential (primary) hypertension; G47.30 Sleep apnea, unspecified; R05 Cough; E78.5 Hyperlipidemia, unspecified; J44.9 Chronic obstructive pulmonary disease, unspecified; E11.22 Type 2 diabetes mellitus with diabetic chronic kidney disease; N18.9 Chronic kidney disease, unspecified; I12.9 Hypertensive chronic kidney disease with stage 1 through stage 4 chronic kidney disease, or unspecified chronic kidney disease; D63.1 Anemia in chronic kidney disease; Z79.899 Other long term (current) drug therapy; Z79.4 Long term (current) use of insulin; Z95.5 Presence of coronary angioplasty implant and graft; Z90.49 Acquired absence of other specified parts of digestive tract; Z87.891 Personal history of nicotine dependence; Z88.8 Allergy status to other drugs, medicaments and biological substances
CPT/HCPCS: 36415; 70450; 71045; 80048; 80053; 81001; 82550; 82553; 82803; 82962; 83735; 84439; 84443; 84484; 85025; 87040; 87086; 93005; 93010; 94640; 96360; 99285; J1650; J1815; J3490; J7030

== ENCOUNTER 2019-01-26 16:17 | Observation (INO) | payer MEDICAID ==
--- NOTE | 2019-01-26 17:01 | RADIOLOGY REPORT (SQ) ---
EXAM DESCRIPTION: CHEST SINGLE VIEW COMPLETED DATE/TIME: 01/26/2019 4:52 pm REASON FOR STUDY: bed 17 sepsis protocol COMPARISON: 01/22/2019 EXAM PARAMETERS: NUMBER OF VIEWS: One view. TECHNIQUE: Single frontal radiographic view of the chest acquired. RADIATION DOSE: NA LIMITATIONS: None. FINDINGS: LUNGS AND PLEURA: Mild ill-defined bibasilar reticular opacities. No dense consolidation. No significant effusion. No pneumothorax. MEDIASTINUM AND HILAR STRUCTURES: No masses. Contour normal. HEART AND VASCULAR STRUCTURES: Heart normal in size. Normal vasculature. BONES: No acute findings. HARDWARE: None in the chest. OTHER: No other significant finding. IMPRESSION: Mild bibasilar reticular opacities possibly atelectatic change or developing infection. TECHNICAL DOCUMENTATION: JOB ID: [id number]- All Rights Reserved Reading location - IP/workstation name: [email or web address]
[2019-01-26] MEDS ORDERED: PROMETHAZINE HCL INJ 50 MG/1 ML VIAL IM PRN (17:11)
[2019-01-26 17:19] LABS: ABSOLUTE BASOPHILS # (AUTO) 0.1 10^3/uL (0.0-0.2); ABSOLUTE EOSINOPHILS # (AUTO) 0.2 10^3/uL (0.0-0.6); ABSOLUTE LYMPHOCYTES (AUTO) 1.7 10^3/uL (0.5-4.7); ABSOLUTE MONOCYTES (AUTO) 0.7 10^3/uL (0.1-1.4); ABSOLUTE NEUT (AUTO) 5.3 10^3/uL (1.7-8.2); BASOPHILS % (AUTO) 0.8 % (0-2); EOSINOPHILS % (AUTO) 2.5 % (0-6); HEMATOCRIT 40.7 % (37.9-51.0); HEMOGLOBIN 13.5 g/dL (13.5-17.0); LYMPHOCYTES % (AUTO) 21.4 % (13-45); MEAN CORPUSCULAR HEMOGLOBIN 27.5 pg (27.0-33.4); MEAN CORPUSCULAR HGB CONC 33.1 g/dL (32.0-36.0); MEAN CORPUSCULAR VOLUME 83 fl (80-97); MONOCYTES % (AUTO) 8.5 % (3-13); PLATELET COUNT 233 10^3/uL (150-450); RED BLOOD COUNT 4.91 10^6/uL (4.35-5.55); RED CELL DISTRIBUTION WIDTH 14.3 % (11.5-14.0); SEGMENTED NEUTROPHILS % (AUTO) 66.8 % (42-78); TOTAL CELLS COUNTED % (AUTO) 100 %
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
[2019-01-26 17:29] LABS: INTERNATIONAL RATION (INR) 0.93; PROTHROMBIN TIME 12.9 SEC (11.4-15.4)
[2019-01-26 17:43] LABS: ALANINE AMINOTRANSFERASE 49 U/L (21-72); ALBUMIN 3.4 g/dL (3.5-5.0); ALKALINE PHOSPHATASE 109 U/L (38-126); ANION GAP 10 (5-19); ASPARTATE AMINO TRANSFERASE 26 U/L (17-59); BILIRUBIN,DIRECT 0.2 mg/dL (0.0-0.4); BILIRUBIN,TOTAL 0.4 mg/dL (0.2-1.3); BLOOD UREA NITROGEN 41 mg/dL (7-20); CARBON DIOXIDE 20 mmol/L (22-30); CHLORIDE 104 mmol/L (98-107); POTASSIUM 5.4 mmol/L (3.6-5.0); SODIUM 133.8 mmol/L (137-145); TOTAL PROTEIN 6.4 g/dL (6.3-8.2)
[2019-01-26 17:54] LABS: GLUCOSE 400 mg/dL (75-110)
[2019-01-26] MEDS ORDERED: INSULIN REG, HUMAN 100 UNIT/ML 3 ML VIAL (PYX) SUBCUT ONE (18:51)
--- NOTE | 2019-01-26 18:53 | RADIOLOGY REPORT (SQ) ---
EXAM DESCRIPTION: MRI HEAD WITHOUT COMPLETED DATE/TIME: 01/26/2019 6:43 pm REASON FOR STUDY: dizziness/ lightheaded/ weak COMPARISON: CT head 01/22/2019 TECHNIQUE: Multiplanar imaging includes non-contrasted T1, T2, FLAIR, and Diffusion with ADC map seq uences. Images stored on PACS. LIMITATIONS: None. FINDINGS: ANATOMY: No anomalies. Normal vascular flow voids. Pituitary fossa normal. CSF SPACES: Normal in size and contour. No hemorrhage. CEREBRUM: A few high-signal intensity lesions scattered throughout the white matter on FLAIR imaging with distribution suggesting chronic micro-vascular ischemic change. Sulci and gyri normal in size a nd contour. No evidence of hemorrhage, mass or extraaxial fluid collection. POSTERIOR FOSSA: No signal alteration. No hemorrhage. No edema, masses or mass effect. Internal lina tory canals, cerebello-pontine angles, mastoids normal. DIFFUSION: Negative for acute or sub-acute infarction. ORBITS: No masses. Globes normal. PARANASAL SINUSES: Small bilateral mastoid effusions. OTHER: No other significant finding. IMPRESSION: MINIMAL MICROVASCULAR ISCHEMIC CHANGE. Small bilateral mastoid effusions. EVIDENCE OF ACUTE STROKE: NO. TECHNICAL DOCUMENTATION: JOB ID: [id number] [employer]- All Rights Reserved Reading location - IP/workstation name: [email or web address]
[2019-01-26] MEDS ORDERED: ACETAMINOPHEN 325 MG TABLET PO PRN (18:54)
[2019-01-26] MEDS ORDERED: MAG HYDROX/AL HYDROX/SIMETH SUSP 30 ML UDCUP PO PRN (18:54)
[2019-01-26] MEDS ORDERED: ONDANSETRON HCL INJ/PF 4 MG/2 ML SDV IV PRN (18:54)
[2019-01-26] MEDS ORDERED: DEXTROSE 40% GEL 15 GM TUBE PO PRN ×2 (18:58)
[2019-01-26] MEDS ORDERED: GLUCAGON,HUMAN RECOMB 1 MG INJ IM PRN (18:58)
[2019-01-26] MEDS ORDERED: DEXTROSE 50%-WATER 25 GM/50 ML DISP.SYRIN IV PRN ×2 (18:58)
[2019-01-26] MEDS: NORMAL SALINE 1000 ML 1,000 ML IV PRN (19:44)
--- NOTE | 2019-01-26 20:07 | RADIOLOGY REPORT (SQ) ---
EXAM DESCRIPTION: CT ABDOMEN PELVIS WITHOUT IV CONTRAST COMPLETED DATE/TME: 01/26/2019 18:56 CLINICAL HISTORY: 63 years, Male, abdominal pain This exam was performed according to our departmental dose-optimization program which includes automated exposure control, adjustment of the mA and/or kVp according to patient size and/or use of iterative reconstruction technique where applicable. FINDINGS: Visualized lung bases are within normal limits. Liver, spleen, pancreas, adrenal glands are within normal limits. Status post cholecystectomy. No significant biliary dilatation. Multiple bilateral renal cysts. No hydronephrosis. There is no renal, ureteral or bladder calculus. No dilated loops of bowel to suggest obstruction. Mild amount of stool in the colon. No free fluid or free air. No abdominal or pelvic lymphadenopathy. Abdominal aorta mildly calcified without aneurysm. IMPRESSION: No evidence for nephrolithiasis or urinary obstruction. No acute pathology.
[2019-01-26] MEDS: INSULIN LISPRO 100 UNIT/ML 3 ML VIAL SUBCUT SCH (21:55)
[2019-01-26] MEDS: CEFEPIME 2 GM/D5W RTU 2 GM/50 ML RTUPB IV SCH (22:06)
[2019-01-26 22:50] LABS: APPEARANCE,URINE CLEAR; BILIRUBIN,URINE NEGATIVE (NEGATIVE); COLOR,URINE YELLOW; GLUCOSE, URINE >=500 mg/dL (NEGATIVE); KETONES,URINE NEGATIVE (NEGATIVE); LEUKOCYTE ESTERASE,URINE NEGATIVE (NEGATIVE); NITRITE,URINE NEGATIVE (NEGATIVE); PROTEIN,URINE NEGATIVE (NEGATIVE); URINE SPECIFIC GRAVITY 1.021; UROBILINOGEN,URINE NEGATIVE mg/dL (<2.0)
[2019-01-26 23:55] LABS: CREATINE KINASE MB 1.55 ng/mL (<4.55)
[2019-01-26 23:59] LABS: TROPONIN I > 0.012 ng/mL
--- NOTE | 2019-01-27 00:12 | EKG REPORT ---
SEVERITY:- OTHERWISE NORMAL ECG - SINUS RHYTHM ATRIAL PREMATURE COMPLEX BORDERLINE LEFT AXIS DEVIATION : Confirmed by: Jessi Ortega 27-Jan-2019 00:11:19
[2019-01-27] MEDS: PANTOPRAZOLE SODIUM 40 MG TABLET.DR PO SCH ×2 (05:16→17:32)
[2019-01-27 06:00] LABS: ABSOLUTE BASOPHILS # (AUTO) 0.1 10^3/uL (0.0-0.2); ABSOLUTE EOSINOPHILS # (AUTO) 0.3 10^3/uL (0.0-0.6); ABSOLUTE LYMPHOCYTES (AUTO) 2.2 10^3/uL (0.5-4.7); ABSOLUTE MONOCYTES (AUTO) 0.6 10^3/uL (0.1-1.4); ABSOLUTE NEUT (AUTO) 3.7 10^3/uL (1.7-8.2); BASOPHILS % (AUTO) 0.8 % (0-2); EOSINOPHILS % (AUTO) 4.1 % (0-6); HEMATOCRIT 38.6 % (37.9-51.0); HEMOGLOBIN 13.1 g/dL (13.5-17.0); LYMPHOCYTES % (AUTO) 31.9 % (13-45); MEAN CORPUSCULAR HEMOGLOBIN 27.8 pg (27.0-33.4); MEAN CORPUSCULAR VOLUME 82 fl (80-97); MONOCYTES % (AUTO) 9.2 % (3-13); PLATELET COUNT 196 10^3/uL (150-450); RED BLOOD COUNT 4.72 10^6/uL (4.35-5.55); RED CELL DISTRIBUTION WIDTH 14.4 % (11.5-14.0); TOTAL CELLS COUNTED % (AUTO) 100 %; WHITE BLOOD COUNT 6.9 10^3/uL (4.0-10.5)
[2019-01-27] MEDS ORDERED: BENZONATATE 100 MG CAPSULE PO PRN (06:31)
[2019-01-27 06:33] LABS: ALANINE AMINOTRANSFERASE 42 U/L (21-72); ALBUMIN 3.3 g/dL (3.5-5.0); ALKALINE PHOSPHATASE 107 U/L (38-126); ANION GAP 9 (5-19); ASPARTATE AMINO TRANSFERASE 27 U/L (17-59); BILIRUBIN,DIRECT 0.4 mg/dL (0.0-0.4); BILIRUBIN,TOTAL 0.4 mg/dL (0.2-1.3); BLOOD UREA NITROGEN 33 mg/dL (7-20); CALCIUM 9.2 mg/dL (8.4-10.2); CARBON DIOXIDE 19 mmol/L (22-30); CHLORIDE 109 mmol/L (98-107); GLUCOSE 305 mg/dL (75-110); POTASSIUM 5.1 mmol/L (3.6-5.0); SODIUM 137.1 mmol/L (137-145)
[2019-01-27 06:45] LABS: TROPONIN I < 0.012 ng/mL
[2019-01-27] MEDS: INSULIN LISPRO 100 UNIT/ML 3 ML VIAL SUBCUT SCH ×7 (07:52→22:18)
[2019-01-27] MEDS ORDERED: LISINOPRIL 10 MG TABLET PO SCH (10:00)
--- NOTE | 2019-01-27 10:08 | Physician Advisory Note ---
Physician Advisor ProgressNote .: Pursuant to the plan for [facility], I have reviewed the medical record for this patient. Physician Advisor Statement: Pt w/recent adm for PNA & OSIEL, underlying CAD/HTN/COPD/asthma/YORDAN/DM/BPH worked out in yard & became dizzy w/N/V. EMS BP 78/46 -> 500ml NS -> 102/62. No tachycardia, but on metoprolol. No fever or persistent tachypnea. No c/o cough/sputum.... ED dr stated plan was if pt w/u was nl & able to ambulate, he could go home. K 5.4, bicarb 20, Cr 1.48, glc 400, CXR still w/opacities (still on Cefdinir). --> Attg ordered Inpt status w/NS @75, IV Cefepime, continued BP meds. - Many pts w/this sort of story (mild OSIEL, hypotension, hyperglycemia) & labs in this range could be expected to improve sufficiently w/appropriate tx w/in 24 hrs for safe d/c. There is no documentation yet (H&P not available for review) from attending to explain the need for changing to IV abx, or to explain reasons to expect pt to require more than 1 night in hospital. This AM, BPs & labs are much improved (may be baseline again), with pt taking all his usual BP meds. Therefore, a reviewer will expect likely d/c home today. STatus determination: Based on documentation currently available in chart, this Medicaid pt appears most appropriate for Obs status from time of initial status order, & for d/c home this AM. If there is something needing ongoing hospital care/monitoring beyond this AM, it needs to be documented explicitly. Thanks, CK
[2019-01-27] MEDS: ENOXAPARIN SODIUM INJ 40 MG/0.4 ML DISP.SYRIN SUBCUT SCH (10:32)
[2019-01-27] MEDS: CEFEPIME 2 GM/D5W RTU 2 GM/50 ML RTUPB IV SCH ×2 (10:32→22:21)
[2019-01-27] MEDS: SITAGLIPTIN PHOSPHATE 50 MG TABLET PO SCH (10:33)
[2019-01-27] MEDS: ISOSORBIDE MONONITRATE 60 MG TAB.ER.24H PO SCH (10:34)
[2019-01-27] MEDS: MONTELUKAST SODIUM 10 MG TABLET PO SCH (10:34)
[2019-01-27] MEDS: AMLODIPINE BESYLATE 5 MG TABLET PO SCH (10:34)
[2019-01-27] MEDS: METOPROLOL TARTRATE 25 MG TABLET PO SCH ×2 (10:34→22:17)
[2019-01-27] MEDS: GABAPENTIN 100 MG CAPSULE PO SCH ×2 (10:34→22:17)
[2019-01-27] MEDS: FINASTERIDE 5 MG TABLET PO SCH (10:35)
[2019-01-27] MEDS: ATORVASTATIN CALCIUM 40 MG TABLET PO SCH (10:35)
[2019-01-27] MEDS: NORMAL SALINE 1000 ML 1,000 ML IV PRN (10:37)
[2019-01-27 12:13] LABS: TROPONIN I < 0.012 ng/mL
--- NOTE | 2019-01-27 13:48 | PDOC PROGRESS REPORT ---
Subjective Progress Note for:: 01/27/19 Subjective:: Patient is currently feeling better Patient is denied any nausea no vomiting I noticed the patient is taking the Bydureon injection once a week for diabetes which are potential side effect of nausea and vomiting but patients denied any related to that Patient had endoscopy was done last year by Dr. Kim Patient's current blood work is all stable kidney function is all improving Patient is denied any chest pain to than any shortness of the breath Patient CT scan of the abdomen and pelvis is all stable Reason For Visit: RENAL FAILURE, HTN, DM Physical Exam Vital Signs: Temp Pulse Resp BP Pulse Ox 97.8 F 118 H 18 137/73 H 95 01/27/19 12:35 01/27/19 12:35 01/27/19 12:35 01/27/19 12:35 01/27/19 12:35 Intake & Output 01/26/19 01/27/19 01/28/19 06:59 06:59 06:59 Intake Total 1144 956 Output Total 600 Balance 544 956 Weight 81.8 kg General appearance: PRESENT: no acute distress, well-developed, well-nourished Head exam: PRESENT: atraumatic, normocephalic Eye exam: PRESENT: conjunctiva pink, EOMI, PERRLA. ABSENT: scleral icterus Ear exam: PRESENT: normal external ear exam Mouth exam: PRESENT: moist, tongue midline Neck exam: PRESENT: full ROM. ABSENT: carotid bruit, JVD, lymphadenopathy, thyromegaly Respiratory exam: PRESENT: clear to auscultation raya Cardiovascular exam: PRESENT: RRR. ABSENT: diastolic murmur, rubs, systolic murmur Vascular exam: PRESENT: normal capillary refill GI/Abdominal exam: PRESENT: normal bowel sounds, soft. ABSENT: distended, gua rding, mass, organolmegaly, rebound, tenderness Rectal exam: PRESENT: deferred Extremities exam: ABSENT: pedal edema Musculoskeletal exam: PRESENT: ambulatory Neurological exam: PRESENT: alert, awake, oriented to person, oriented to place, oriented to time, oriented to situation, CN II-XII grossly intact. ABSENT: motor sensory deficit Psychiatric exam: PRESENT: appropriate affect, normal mood. ABSENT: homicidal ideation, suicidal ideation Skin exam: PRESENT: dry, intact, warm. ABSENT: cyanosis, rash Results Laboratory Results: 01/27/19 05:02 01/27/19 05:02 01/26/19 01/26/19 01/26/19 17:00 17:00 17:00 WBC 8.0 RBC 4.91 Hgb 13.5 Hct 40.7 MCV 83 MCH 27.5 MCHC 33.1 RDW 14.3 H Plt Count 233 Seg Neutrophils % 66.8 Lymphocytes % 21.4 Monocytes % 8.5 Eosinophils % 2.5 Basophils % 0.8 Absolute Neutrophils 5.3 Absolute Lymphocytes 1.7 Absolute Monocytes 0.7 Absolute Eosinophils 0.2 Absolute Basophils 0.1 Sodium 133.8 L Potassium 5.4 H Chloride 104 Carbon Dioxide 20 L Anion Gap 10 BUN 41 H Creatinine 1.48 H Est GFR ( Amer) 58 L Est GFR (Non-Af Amer) 48 L Glucose 400 H* Lactic Acid 2.0 Calcium 9.0 Magnesium Total Bilirubin 0.4 AST 26 ALT 49 Alkaline Phosphatase 109 Total Protein 6.4 Albumin 3.4 L Urine Color Urine Appearance Urine pH Ur Specific [place] Urine Protein Urine Glucose (UA) Urine Ketones Urine Blood Urine Nitrite Ur Leukocyte Esterase Urine WBC (Auto) 01/26/19 01/27/19 01/27/19 22:11 05:02 05:02 WBC 6.9 RBC 4.72 Hgb 13.1 L Hct 38.6 MCV 82 MCH 27.8 MCHC 34.0 RDW 14.4 H Plt Count 196 Seg Neutrophils % 54.0 Lymphocytes % 31.9 Monocytes % 9.2 Eosinophils % 4.1 Basophils % 0.8 Absolute Neutrophils 3.7 Absolute Lymphocytes 2.2 Absolute Monocytes 0.6 Absolute Eosinophils 0.3 Absolute Basophils 0.1 Sodium 137.1 Potassium 5.1 H Chloride 109 H Carbon Dioxide 19 L Anion Gap 9 BUN 33 H Creatinine 0.99 Est GFR ( Amer) > 60 Est GFR (Non-Af Amer) > 60 Glucose 305 H Lactic Acid Calcium 9.2 Magnesium 1.8 Total Bilirubin 0.4 AST 27 ALT 42 Alkaline Phosphatase 107 Total Protein 6.0 L Albumin 3.3 L Urine Color YELLOW Urine Appearance CLEAR Urine pH 5.0 Ur Specific [place] 1.021 Urine Protein NEGATIVE Urine Glucose (UA) >=500 H Urine Ketones NEGATIVE Urine Blood NEGATIVE Urine Nitrite NEGATIVE Ur Leukocyte Esterase NEGATIVE Urine WBC (Auto) 1 01/26/19 01/26/19 01/26/19 17:00 23:11 23:11 Creatine Kinase 128 CK-MB (CK-2) 1.55 Troponin I < 0.012 > 0.012 01/27/19 01/27/19 01/27/19 05:02 05:02 11:05 Creatine Kinase 128 109 CK-MB (CK-2) 1.40 Troponin I < 0.012 01/27/19 11:05 Creatine Kinase CK-MB (CK-2) 1.00 Troponin I < 0.012 Impressions: Chest X-Ray 01/26/19 16:21 IMPRESSION: Mild bibasilar reticular opacities possibly atelectatic change or developing infection. Head MRI 01/26/19 17:26 IMPRESSION: MINIMAL MICROVASCULAR ISCHEMIC CHANGE. Small bilateral mastoid effusions. EVIDENCE OF ACUTE STROKE: NO. Abdomen/Pelvis CT 01/26/19 18:56 IMPRESSION: No evidence for nephrolithiasis or urinary obstruction. No acute pathology. Assessment & Plan - Diagnosis (1) Hyperglycemia due to type 2 diabetes mellitus Qualifiers: Diabetes mellitus usp insulin use: with usp use Qualified Code(s): E11.65 - Type 2 diabetes mellitus with hyperglycemia; Z79.4 - alf (current) use of insulin Is this a current diagnosis for this admission?: Yes Plan: Patient is currently getting better I believe patients may be noncompliance not taking the insulin as prescribed (2) Hyperkalemia Is this a current diagnosis for this admission?: Yes Plan: Currently all resolved (3) Weakness Is this a current diagnosis for this admission?: Yes Plan: Will get the physical therapy (4) Acute kidney failure Qualifiers: Qualified Code(s): N17.9 - Acute kidney failure, unspecified Is this a current diagnosis for this admission?: Yes Plan: We will discontinue's the lisinopril (5) Coronary artery disease Qualifiers: Coronary Disease-Associated Artery/Lesion type: unspecified vessel or lesion type Is this a current diagnosis for this admission?: Yes Plan: Clear all stable (6) Hyperlipidemia Qualifiers: Hyperlipidemia type: unspecified Qualified Code(s): E78.5 - Hyperlipidemia, unspecified Is this a current diagnosis for this admission?: Yes (7) Hypertension Qualifiers: Hypertension type: essential hypertension Is this a current diagnosis for this admission?: Yes (8) Pneumonia Qualifiers: Lung location: unspecified part of lung Is this a current diagnosis for this admission?: Yes Plan: Will continues to IV antibiotic get the CT of the chest to further evaluate - Time Time Spent with patient: 15-24 minutes Medications reviewed and adjusted accordingly: Yes Anticipated discharge: Other Within: Other - Plan Summary Plan Summary: Continues to IV fluid Patient 7 some mild bronchitis with early pneumonia Will cover with the antibiotic
--- NOTE | 2019-01-27 13:54 | PDOC H&P ---
History of Present Illness Admission Date/PCP: 01/26/19 19:38 ZAIRE GEIGER MD Patient complains of: Weakness and dizziness History of Present Illness: TAHIR FOURNIER is a 63 year old male This is a 63-year-old male recently admitted with acute renal failure hyper kalemia bronchitis just discharged 2 days back came to the emergency department feeling weak and dizzy and not feeling well Patient is denied any chest pain to than any shortness of the breath Patient is full some nauseating Patient is denied any abdominal pain No fever no chills In the emergency department patient's underwent for the MRI of the head was negative for any acute finding Patient also found acute renal failure with hyperkalemia At this point decided to admit for further evaluation Patient's blood sugar is also elevated Patient's a CT abdomen and pelvis was done in the ER was also negative for any acute finding Discussed with the patient and the family on the bedside in the ER Past Medical History Cardiac Medical History: Reports: Coronary Artery Disease - CARDIAC STENTS X5, Hyperlipidema, Hypertension Denies: Atrial Fibrillation, Congestive Heart Failure, Myocardial Infarction, Peripheral Vascular Disease, Pulmonary Embolism Pulmonary Medical History: Reports: Asthma, Bronchitis, Chronic Obstructive Pulmonary Disease (COPD), Pneumonia, Sleep Apnea Denies: Respiratory Failure, Tuberculosis Neurological Medical History: Denies: Seizures Endocrine Medical History: Reports: Diabetes Mellitus Type 2 Denies: Hyperthyroidism, Hypothyroidism Renal/ Medical History: Denies: End Stage Renal Disease Malignancy Medical History: Denies: Leukemia, Lung Cancer GI Medical History: Reports: Gastroesophageal Reflux Disease, Hiatal Hernia Denies: Crohn's Disease Musculoskeltal Medical History: Reports: Arthritis - bursitis left shoulder, back bone spurs Denies: Fibromyalgia Psychiatric Medical History: Denies: Bipolar Disorder, Dementia, Depression, Post Traumatic Stress Disorder Hematology: Reports: Anemia Infectious Medical History: Denies: HIV Past Surgical History Past Surgical History: Reports: Cardiac Catheterization - 5 stents, Cholecystectomy, Coronary Stent, Orthopedic Surgery - right leg, back surgery, Tonsillectomy Denies: Appendectomy, Colostomy, Coronary Artery Bypass Graft, Gastric Bypass Surgery, Herniorrhaphy, Pacemaker Social History Smoking Status: Former Smoker Number of Years Smokin Last Time Smoked: 11/12/92 Frequency of Alcohol Use: Rare Hx Recreational Drug Use: No Drugs: None Hx Prescription Drug Abuse: No - Advance Directive Resuscitation Status: Full Code Family History Family History: Reviewed & Not Pertinent, Arthritis, CAD, CVA, DM, Hyperlipidemia, Hypertension, Malignancy Parental Family History Reviewed: Yes Children Family History Reviewed: Yes Sibling(s) Family History Reviewed.: Yes Medication/Allergy Home Medications: Albuterol Sulfate [Proair Hfa Inhalation Aerosol 8.5 gm Mdi] 2 puff IH Q6HP PRN 01/26/19 Albuterol Sulfate [Ventolin 0.083% Neb 2.5 mg/3 ml Ampul] 1 vial NEB RTDAILYP P RN 01/26/19 Amlodipine Besylate [Norvasc 5 mg Tablet] 5 mg PO DAILY 01/26/19 Atorvastatin Calcium [Lipitor 40 mg Tablet] 40 mg PO DAILY 01/26/19 Benzonatate [Tessalon Perles 100 mg Capsule] 100 mg PO Q8HP PRN 01/26/19 Cefdinir [Omnicef 300 mg Capsule] 300 mg PO BID 01/26/19 Exenatide Microspheres [Bydureon Pen] 2 mg SQ CHAPMAN@1000 01/26/19 Finasteride [Proscar 5 mg Tablet] 5 mg PO DAILY 01/26/19 Gabapentin [Neurontin 100 mg Capsule] 100 mg PO Q12 01/26/19 Insulin Aspart [Novolog Flexpen] 40 unit SUBCUT TID 01/26/19 Insulin Glargine,Hum.rec.anlog [Lantus Insulin Inj 300 Unit/3 ml Pen] 80 unit SUBCUT QHS 01/26/19 Isosorbide Mononitrate [Imdur 60 mg Tablet.er] 60 mg PO DAILY 01/26/19 Linagliptin [Tradjenta] 5 mg PO DAILY 01/26/19 Lisinopril [Prinivil 10 mg Tablet] 10 mg PO DAILY 01/26/19 Metoprolol Tartrate [Lopressor 25 mg Tablet] 25 mg PO Q12 01/26/19 Montelukast Sodium [Singulair 10 mg Tablet] 10 mg PO DAILY 01/26/19 Omeprazole 40 mg PO DAILY 01/26/19 Allergies/Adverse Reactions: clopidogrel bisulfate [From Plavix] Adverse Reaction (Severe, Verified 01/26/19 17:20) bleeding from ear/NOSE Review of Systems Constitutional: PRESENT: fatigue, weakness. ABSENT: chills, fever(s), headache(s), weight gain, weight loss Eyes: ABSENT: visual disturbances Ears: ABSENT: hearing changes Cardiovascular: ABSENT: chest pain, dyspnea on exertion, edema, orthropnea, palpitations Respiratory: PRESENT: cough. ABSENT: hemoptysis Gastrointestinal: ABSENT: abdominal pain, constipation, diarrhea, hematemesis, hematochezia, nausea, vomiting Genitourinary: ABSENT: dysuria, hematuria Musculoskeletal: ABSENT: joint swelling Integumentary: ABSENT: rash, wounds Neurological: ABSENT: abnormal gait, abnormal speech, confusion, dizziness, focal weakness, syncope Psychiatric: ABSENT: anxiety, depression, homidical ideation, suicidal ideation Endocrine: ABSENT: cold intolerance, heat intolerance, menstrual abnormalities, polydipsia, polyuria Hematologic/Lymphatic: ABSENT: easy bleeding, easy bruising, lymphadenopathy Physical Exam Vital Signs: Temp Pulse Resp BP Pulse Ox 97.8 F 118 H 18 137/73 H 95 01/27/19 12:35 01/27/19 12:35 01/27/19 12:35 01/27/19 12:35 01/27/19 12:35 Intake & Output 01/26/19 01/27/19 01/28/19 06:59 06:59 06:59 Intake Total 1144 956 Output Total 600 Balance 544 956 Weight 81.8 kg General appearance: PRESENT: no acute distress, well-developed, well-nourished Head exam: PRESENT: atraumatic, normocephalic Eye exam: PRESENT: conjunctiva pink, EOMI, PERRLA. ABSENT: scleral icterus Ear exam: PRESENT: normal external ear exam Mouth exam: PRESENT: moist, tongue midline Neck exam: PRESENT: full ROM. ABSENT: carotid bruit, JVD, lymphadenopathy, thyromegaly Respiratory exam: PRESENT: clear to auscultation raya Cardiovascular exam: PRESENT: RRR. ABSENT: diastolic murmur, rubs, systolic murmur Vascular exam: PRESENT: normal capillary refill GI/Abdominal exam: PRESENT: normal bowel sounds, soft. ABSENT: distended, guard ing, mass, organolmegaly, rebound, tenderness Rectal exam: PRESENT: deferred Neurological exam: PRESENT: alert, awake, oriented to person, oriented to place, oriented to time, oriented to situation, CN II-XII grossly intact. ABSENT: motor sensory deficit Psychiatric exam: PRESENT: appropriate affect, normal mood. ABSENT: homicidal ideation, suicidal ideation Skin exam: PRESENT: dry, intact, warm. ABSENT: cyanosis, rash Results Laboratory Results: 01/27/19 05:02 01/27/19 05:02 01/26/19 01/26/19 01/26/19 17:00 17:00 17:00 WBC 8.0 RBC 4.91 Hgb 13.5 Hct 40.7 MCV 83 MCH 27.5 MCHC 33.1 RDW 14.3 H Plt Count 233 Seg Neutrophils % 66.8 Lymphocytes % 21.4 Monocytes % 8.5 Eosinophils % 2.5 Basophils % 0.8 Absolute Neutrophils 5.3 Absolute Lymphocytes 1.7 Absolute Monocytes 0.7 Absolute Eosinophils 0.2 Absolute Basophils 0.1 Sodium 133.8 L Potassium 5.4 H Chloride 104 Carbon Dioxide 20 L Anion Gap 10 BUN 41 H Creatinine 1.48 H Est GFR ( Amer) 58 L Est GFR (Non-Af Amer) 48 L Glucose 400 H* Lactic Acid 2.0 Calcium 9.0 Magnesium Total Bilirubin 0.4 AST 26 ALT 49 Alkaline Phosphatase 109 Total Protein 6.4 Albumin 3.4 L Urine Color Urine Appearance Urine pH Ur Specific [place] Urine Protein Urine Glucose (UA) Urine Ketones Urine Blood Urine Nitrite Ur Leukocyte Esterase Urine WBC (Auto) 01/26/19 01/27/19 01/27/19 22:11 05:02 05:02 WBC 6.9 RBC 4.72 Hgb 13.1 L Hct 38.6 MCV 82 MCH 27.8 MCHC 34.0 RDW 14.4 H Plt Count 196 Seg Neutrophils % 54.0 Lymphocytes % 31.9 Monocytes % 9.2 Eosinophils % 4.1 Basophils % 0.8 Absolute Neutrophils 3.7 Absolute Lymphocytes 2.2 Absolute Monocytes 0.6 Absolute Eosinophils 0.3 Absolute Basophils 0.1 Sodium 137.1 Potassium 5.1 H Chloride 109 H Carbon Dioxide 19 L Anion Gap 9 BUN 33 H Creatinine 0.99 Est GFR ( Amer) > 60 Est GFR (Non-Af Amer) > 60 Glucose 305 H Lactic Acid Calcium 9.2 Magnesium 1.8 Total Bilirubin 0.4 AST 27 ALT 42 Alkaline Phosphatase 107 Total Protein 6.0 L Albumin 3.3 L Urine Color YELLOW Urine Appearance CLEAR Urine pH 5.0 Ur Specific [place] 1.021 Urine Protein NEGATIVE Urine Glucose (UA) >=500 H Urine Ketones NEGATIVE Urine Blood NEGATIVE Urine Nitrite NEGATIVE Ur Leukocyte Esterase NEGATIVE Urine WBC (Auto) 1 01/26/19 01/26/19 01/26/19 17:00 23:11 23:11 Creatine Kinase 128 CK-MB (CK-2) 1.55 Troponin I < 0.012 > 0.012 01/27/19 01/27/19 01/27/19 05:02 05:02 11:05 Creatine Kinase 128 109 CK-MB (CK-2) 1.40 Troponin I < 0.012 01/27/19 11:05 Creatine Kinase CK-MB (CK-2) 1.00 Troponin I < 0.012 Impressions: Chest X-Ray 01/26/19 16:21 IMPRESSION: Mild bibasilar reticular opacities possibly atelectatic change or developing infection. Head MRI 01/26/19 17:26 IMPRESSION: MINIMAL MICROVASCULAR ISCHEMIC CHANGE. Small bilateral mastoid effusions. EVIDENCE OF ACUTE STROKE: NO. Abdomen/Pelvis CT 01/26/19 18:56 IMPRESSION: No evidence for nephrolithiasis or urinary obstruction. No acute pathology. 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 Qualified Code(s): E11.65 - Type 2 diabetes mellitus with hyperglycemia; Z79.4 - [facility] (current) use of insulin Is this a current diagnosis for this admission?: Yes Plan: Admit the patient sliding scale IV fluid (3) Hyperkalemia Is this a current diagnosis for this admission?: Yes Plan: We hold the lisinopril (4) Weakness Is this a current diagnosis for this admission?: Yes Plan: Consult the physical therapy (5) Acute kidney failure Qualifiers: Is this a current diagnosis for this admission?: Yes Plan: Start on IV fluid (6) Coronary artery disease Qualifiers: Coronary Disease-Associated Artery/Lesion type: unspecified vessel or lesion type Is this a current diagnosis for this admission?: Yes Plan: Will rule out acute coronary syndrome (7) Hyperlipidemia Qualifiers: Hyperlipidemia type: unspecified Qualified Code(s): E78.5 - Hyperlipidemia, unspecified Is this a current diagnosis for this admission?: Yes (8) Hypertension Qualifiers: Hypertension type: essential hypertension Is this a current diagnosis for this admission?: Yes (9) Pneumonia Qualifiers: Lung location: unspecified part of lung Is this a current diagnosis for this admission?: Yes Plan: Patient's chest x-ray shows a possible early pneumonia we will start the patient on IV antibiotic - Time Time Spent: 30 to 50 Minutes Medications reviewed and adjusted accordingly: Yes Anticipated discharge: Home Within: Other - Inpatient Certification Based on my medical assessment, after consideration of the patient's comorbidities, presenting symptoms, or acuity I expect that the services needed warrant INPATIENT care.: Yes I certify that my determination is in accordance with my understanding of Medicare's requirements for reasonable and necessary INPATIENT services [42 CFR 412.3e].: Yes Medical Necessity: Need Close Monitoring Due to Risk of Patient Decompensation, Need For IV Fluids, Need for IV Antibiotics Post Hospital Care: D/C Key Account Manager Documentation - Plan Summary Plan Summary: The patient in a telemetry bed See MD orders
--- NOTE | 2019-01-27 14:06 | RADIOLOGY REPORT (SQ) ---
EXAM DESCRIPTION: CT CHEST WITHOUT COMPLETED DATE/TIME: 01/27/2019 1:48 pm REASON FOR STUDY: cough COMPARISON: 11/06/2017 TECHNIQUE: CT scan performed of the chest without intravenous contrast. Images reviewed with lung, soft tissue and bone windows. Reconstructed coronal and sagittal MPR images reviewed. All images st ored on PACS. All CT scanners at this facility use dose modulation, iterative reconstruction, and/or weight based d osing when appropriate to reduce radiation dose to as low as reasonably achievable (ALARA). [facility]: Dose Right [facility]: CareDose [facility]: Dose Right [facility]: Teradose 4D [facility]: Aerob RADIATION DOSE: CT Rad equipment meets quality standard of care and radiation dose reduction techniq ues were employed. CTDIvol: 11.3 mGy. DLP: 412 mGy-cm. mGy. LIMITATIONS: No technical limitations. FINDINGS: LUNGS AND PLEURA: Mosaic attenuation within the lungs bilaterally, greatest in the bilater al lower lobes. No dense consolidation. No pleural effusion no pneumothorax. Scattered parenchymal cysts. Small ground-glass nodule within the bilateral lower lobes, likely hypoventilatory change. HILAR AND MEDIASTINAL STRUCTURES: There are shotty mediastinal nodes, not significantly changed from prior. There is a subcarinal node measuring 12 mm in short axis, stable. No new discrete mediastina l, hilar or axillary adenopathy. HEART AND VASCULAR STRUCTURES: No significant pericardial effusion. Normal heart size. Three-vessel coronary atherosclerosis. UPPER ABDOMEN: Prior cholecystectomy. No acute visualized findings. THYROID AND OTHER SOFT TISSUES: Stable appearance of the thyroid. No new discrete masses. BONES: No acute findings. No suspicious osseous lesions. HARDWARE: None in the chest. OTHER: No other significant findings. IMPRESSION: Mosaic attenuation throughout both lungs which can be seen with small airway disease/ ai r trapping. Mild areas of bibasilar ground-glass attenuation, likely hypoventilatory change although infection/in flammation is not entirely excluded. No dense lobar consolidation. TECHNICAL DOCUMENTATION: JOB ID: [id number] Quality ID # [id number]: Final reports with documentation of one or more dose reduction techniques (e.g., Au tomated exposure control, adjustment of the mA and/or kV according to patient size, use of iterative reconstruction technique) 2010 [employer]- All Rights Reserved Reading location - IP[facility]workstation name: [email or web address]
--- NOTE | 2019-01-27 22:11 | RADIOLOGY REPORT (SQ) ---
EXAM DESCRIPTION: US CAROTID DOPPLER BILATERAL COMPLETED DATE/TME: 01/27/2019 00:00 CLINICAL HISTORY: 63 years, Male, dizziness COMPARISON: None. TECHNIQUE: Transverse longitudinal sonographic images of the cervical portions of the carotid arteries. Doppler and spectral analysis with color flow was utilized. LIMITATIONS: None. FINDINGS: Imaging over the carotid artery shows minimal atheromatous plaque formation of the carotid bifurcations bilaterally. No visible areas of severe stenosis. Doppler and spectral analysis with color flow shows biphasic and triphasic waveforms bilaterally. Velocities are as follows (in peak systolic velocity): Right proximal CCA: 64 cm/s. Right distal CCA: 85 cm/s. Right proximal ICA: 72 cm/s. Right distal ICA: 80 cm/s. Right ECA: 145 cm/s. Right vertebral artery: 32 cm/s. Antegrade flow. Right ICA to CCA ratio: 0.9. Left CCA proximal: 92 cm/s. Left distal CCA: 88 cm/s. Left proximal ICA: 83 cm/s. Left distal ICA: 90 cm/s. Left ECA: 125 cm/s. Left vertebral artery: 45 cm/s. Antegrade flow. Left ICA to CCA ratio: 1.0 IMPRESSION: Mild visible atheromatous plaque formation bilaterally. No sonographic evidence for severe stenosis. Somewhat elevated ECA velocities bilaterally, nonspecific finding. Normal antegrade flow in the vertebral arteries. copyright 2010 [employer]- All Rights Reserved
[2019-01-27] MEDS: INSULIN GLARGINE,HUM.REC.ANLOG 300 UNIT/3 ML INSULN.PEN SUBCUT SCH (22:17)
[2019-01-28] MEDS: NORMAL SALINE 1000 ML 1,000 ML IV PRN (04:36)
[2019-01-28] MEDS: PANTOPRAZOLE SODIUM 40 MG TABLET.DR PO SCH ×2 (05:14→16:44)
[2019-01-28 06:06] LABS: ABSOLUTE BASOPHILS # (AUTO) 0.1 10^3/uL (0.0-0.2); ABSOLUTE EOSINOPHILS # (AUTO) 0.4 10^3/uL (0.0-0.6); ABSOLUTE LYMPHOCYTES (AUTO) 2.7 10^3/uL (0.5-4.7); ABSOLUTE MONOCYTES (AUTO) 0.8 10^3/uL (0.1-1.4); ABSOLUTE NEUT (AUTO) 5.8 10^3/uL (1.7-8.2); BASOPHILS % (AUTO) 1.1 % (0-2); EOSINOPHILS % (AUTO) 4.1 % (0-6); HEMATOCRIT 38.4 % (37.9-51.0); LYMPHOCYTES % (AUTO) 27.5 % (13-45); MEAN CORPUSCULAR HEMOGLOBIN 27.4 pg (27.0-33.4); MEAN CORPUSCULAR HGB CONC 33.7 g/dL (32.0-36.0); MEAN CORPUSCULAR VOLUME 81 fl (80-97); MONOCYTES % (AUTO) 7.9 % (3-13); PLATELET COUNT 211 10^3/uL (150-450); RED BLOOD COUNT 4.72 10^6/uL (4.35-5.55); RED CELL DISTRIBUTION WIDTH 14.4 % (11.5-14.0); SEGMENTED NEUTROPHILS % (AUTO) 59.4 % (42-78); TOTAL CELLS COUNTED % (AUTO) 100 %; WHITE BLOOD COUNT 9.8 10^3/uL (4.0-10.5)
[2019-01-28 06:26] LABS: ANION GAP 9 (5-19); BLOOD UREA NITROGEN 26 mg/dL (7-20); CALCIUM 8.9 mg/dL (8.4-10.2); CARBON DIOXIDE 21 mmol/L (22-30); CHLORIDE 105 mmol/L (98-107); GLUCOSE 278 mg/dL (75-110); SODIUM 134.7 mmol/L (137-145)
[2019-01-28] MEDS: INSULIN LISPRO 100 UNIT/ML 3 ML VIAL SUBCUT SCH ×7 (07:53→22:45)
[2019-01-28] MEDS ORDERED: NORMAL SALINE 1000 ML 1,000 ML IV PRN (08:58)
--- NOTE | 2019-01-28 09:01 | PDOC PROGRESS REPORT ---
Subjective Progress Note for:: 01/28/19 Subjective:: Patient is currently doing fair Patient's feeling much better Discussed with the patient's at the bedside no other issues Patient CT scan of the chest suggested airways disease Patient's used to smoke quit in 1994 patient smoked almost 20 years Patient currently uses [employer] Reason For Visit: RENAL FAILURE Physical Exam Vital Signs: Temp Pulse Resp BP Pulse Ox 97.7 F 63 18 128/68 H 94 01/28/19 07:34 01/28/19 07:34 01/28/19 07:34 01/28/19 07:34 01/28/19 07:34 Intake & Output 01/27/19 01/28/19 01/29/19 06:59 06:59 06:59 Intake Total 1144 3128 Output Total 600 750 Balance 544 2378 Weight 81.8 kg 83 kg General appearance: PRESENT: no acute distress, well-developed, well-nourished Head exam: PRESENT: atraumatic, normocephalic Eye exam: PRESENT: conjunctiva pink, EOMI, PERRLA. ABSENT: scleral icterus Ear exam: PRESENT: normal external ear exam Mouth exam: PRESENT: moist, tongue midline Neck exam: PRESENT: full ROM. ABSENT: carotid bruit, JVD, lymphadenopathy, thyromegaly Respiratory exam: PRESENT: clear to auscultation raya Cardiovascular exam: PRESENT: RRR. ABSENT: diastolic murmur, rubs, systolic murmur Vascular exam: PRESENT: normal capillary refill GI/Abdominal exam: PRESENT: normal bowel sounds, soft. ABSENT: distended, guarding, mass, organolmegaly, rebound, tenderness Rectal exam: PRESENT: deferred Musculoskeletal exam: PRESENT: ambulatory Neurological exam: PRESENT: alert, awake, oriented to person, oriented to place, oriented to time, oriented to situation, CN II-XII grossly intact. ABSENT: motor sensory deficit Psychiatric exam: PRESENT: appropriate affect, normal mood. ABSENT: homicidal ideation, suicidal ideation Skin exam: PRESENT: dry, intact, warm. ABSENT: cyanosis, rash Results Laboratory Results: 01/28/19 04:42 01/28/19 04:42 01/28/19 01/28/19 04:42 04:42 WBC 9.8 RBC 4.72 Hgb 13.0 L Hct 38.4 MCV 81 MCH 27.4 MCHC 33.7 RDW 14.4 H Plt Count 211 Seg Neutrophils % 59.4 Lymphocytes % 27.5 Monocytes % 7.9 Eosinophils % 4.1 Basophils % 1.1 Absolute Neutrophils 5.8 Absolute Lymphocytes 2.7 Absolute Monocytes 0.8 Absolute Eosinophils 0.4 Absolute Basophils 0.1 Sodium 134.7 L Potassium 5.0 Chloride 105 Carbon Dioxide 21 L Anion Gap 9 BUN 26 H Creatinine 1.12 Est GFR ( Amer) > 60 Est GFR (Non-Af Amer) > 60 Glucose 278 H Calcium 8.9 Magnesium 1.7 01/26/19 01/26/19 01/26/19 17:00 23:11 23:11 Creatine Kinase 128 CK-MB (CK-2) 1.55 Troponin I < 0.012 > 0.012 01/27/19 01/27/19 01/27/19 05:02 05:02 11:05 Creatine Kinase 128 109 CK-MB (CK-2) 1.40 Troponin I < 0.012 01/27/19 11:05 Creatine Kinase CK-MB (CK-2) 1.00 Troponin I < 0.012 Impressions: Chest X-Ray 01/26/19 16:21 IMPRESSION: Mild bibasilar reticular opacities possibly atelectatic change or developing infection. Head MRI 01/26/19 17:26 IMPRESSION: MINIMAL MICROVASCULAR ISCHEMIC CHANGE. Small bilateral mastoid effusions. EVIDENCE OF ACUTE STROKE: NO. Abdomen/Pelvis CT 01/26/19 18:56 IMPRESSION: No evidence for nephrolithiasis or urinary obstruction. No acute pathology. Carotid Doppler Study 01/27/19 00:00 IMPRESSION: Mild visible atheromatous plaque formation bilaterally. No sonographic evidence for severe stenosis. Somewhat elevated ECA velocities bilaterally, nonspecific finding. Normal antegrade flow in the vertebral arteries. copyright 2011 [employer]- All Rights Reserved Chest CT 01/27/19 00:00 IMPRESSION: Mosaic attenuation throughout both lungs which can be seen with small airway disease/ air trapping. Mild areas of bibasilar ground-glass attenuation, likely hypoventilatory change although infection/inflammation is not entirely excluded. No dense lobar consolidation. 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 Qualified Code(s): E11.65 - Type 2 diabetes mellitus with hyperglycemia; Z79.4 - [facility] (current) use of insulin Is this a current diagnosis for this admission?: Yes Plan: Admit the patient sliding scale IV fluid (3) Hyperkalemia Is this a current diagnosis for this admission?: Yes Plan: We hold the lisinopril (4) Weakness Is this a current diagnosis for this admission?: Yes Plan: There are stable (5) Acute kidney failure Qualifiers: Is this a current diagnosis for this admission?: Yes Plan: Currently resolved (6) Coronary artery disease Qualifiers: Coronary Disease-Associated Artery/Lesion type: unspecified vessel or lesion type Is this a current diagnosis for this admission?: Yes Plan: Will rule out acute coronary syndrome (7) Hyperlipidemia Qualifiers: Hyperlipidemia type: unspecified Qualified Code(s): E78.5 - Hyperlipidemia, unspecified Is this a current diagnosis for this admission?: Yes (8) Hypertension Qualifiers: Hypertension type: essential hypertension Is this a current diagnosis for this admission?: Yes (9) Pneumonia Qualifiers: Lung location: unspecified part of lung Is this a current diagnosis for this admission?: Yes Plan: Will ask pulmonary for further evaluation with atypical CT scan report - Time Time Spent with patient: 15-24 minutes Medications reviewed and adjusted accordingly: Yes Anticipated discharge: Home Within: within 24 hours - Plan Summary Plan Summary: Current medications
[2019-01-28] MEDS: GABAPENTIN 100 MG CAPSULE PO SCH ×2 (10:13→22:45)
[2019-01-28] MEDS: ISOSORBIDE MONONITRATE 60 MG TAB.ER.24H PO SCH (10:13)
[2019-01-28] MEDS: FINASTERIDE 5 MG TABLET PO SCH (10:14)
[2019-01-28] MEDS: METOPROLOL TARTRATE 25 MG TABLET PO SCH ×2 (10:14→22:46)
[2019-01-28] MEDS: MONTELUKAST SODIUM 10 MG TABLET PO SCH (10:14)
[2019-01-28] MEDS: ENOXAPARIN SODIUM INJ 40 MG/0.4 ML DISP.SYRIN SUBCUT SCH (10:14)
[2019-01-28] MEDS: AMLODIPINE BESYLATE 5 MG TABLET PO SCH (10:14)
[2019-01-28] MEDS: ATORVASTATIN CALCIUM 40 MG TABLET PO SCH (10:14)
[2019-01-28] MEDS: SITAGLIPTIN PHOSPHATE 50 MG TABLET PO SCH (10:17)
[2019-01-28] MEDS: CEFEPIME 2 GM/D5W RTU 2 GM/50 ML RTUPB IV SCH ×2 (10:18→22:46)
[2019-01-28] MEDS: IPRATROPIUM/ALBUTEROL 0.5-2.5 MG/3 ML AMPUL NEB PRN (10:38)
--- NOTE | 2019-01-28 15:43 | PDOC CONSULTATION ---
Consultation Consult Date: 01/28/19 Attending physician:: ZAIRE GEIGER History of Present Illness Admission Date/PCP: 01/26/19 19:38 ZAIRE GEIGER MD History of Present Illness: TAHIR FOURNIER is a 63 year old male, with multiple medical problems 1 of which she was consistent with acute bronchitis this week complaint of a cough productive yellow phlegm no hemoptysis PPD was negative dates unknown no history chronic lung disease as a child or adolescent he is never smoked. 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 no recent travels he denies angina-like chest pain sleeps on 2 pillows rare PND no nocturnal cough rare edema he admits to snoring restless sleep nocturia 2-3 times per night unrestful sleep and daytime somnolence it appears that in the past he carried a diagnosis of restless leg syndrome obstructive sleep apnea currently wearing his CPAP Past Medical History Cardiac Medical History: Reports: Coronary Artery Disease - CARDIAC STENTS X5, Hyperlipidema, Hypertension Denies: Atrial Fibrillation, Congestive Heart Failure, Myocardial Infarction, Peripheral Vascular Disease, Pulmonary Embolism Pulmonary Medical History: Reports: Asthma, Bronchitis, Chronic Obstructive Pulmonary Disease (COPD), Pneumonia, Sleep Apnea Denies: Respiratory Failure, Tuberculosis Neurological Medical History: Denies: Seizures Endocrine Medical History: Reports: Diabetes Mellitus Type 1, Diabetes Mellitus Type 2 Denies: Hyperthyroidism, Hypothyroidism Renal/ Medical History: Denies: End Stage Renal Disease Malignancy Medical History: Denies: Leukemia, Lung Cancer GI Medical History: Reports: Gastroesophageal Reflux Disease, Hiatal Hernia Denies: Crohn's Disease Musculoskeltal Medical History: Reports: Arthritis - bursitis left shoulder, back bone spurs Denies: Fibromyalgia Psychiatric Medical History: Denies: Bipolar Disorder, Dementia, Depression, Post Traumatic Stress Disorder Hematology: Reports: Anemia Infectious Medical History: Denies: HIV Past Surgical History Past Surgical History: Reports: Cardiac Catheterization - 5 stents, Cholecystectomy, Coronary Stent, Orthopedic Surgery - right leg, back surgery, Tonsillectomy Denies: Appendectomy, Colostomy, Coronary Artery Bypass Graft, Gastric Bypass Surgery, Herniorrhaphy, Pacemaker Social History Information Source: Patient, [facility] Records Smoking Status: Former Smoker Cigarettes Packs Per Day: 2 Number of Years Smokin Last Time Smoked: 11/12/92 Passive smoke exposure as: Both Frequency of Alcohol Use: Rare Hx Recreational Drug Use: No Drugs: None Hx Prescription Drug Abuse: No Do you have pets?: No Have you had any respiratory illnesses as a child?: No Have you been exposed to any sick contacts recently?: No Have you had any recent respiratory illnesses?: No Have you travelled outside of [place] in the past 12 months?: No - Advance Directive Resuscitation Status: Full Code Family History Family History: Arthritis, CAD, CVA, DM, Hyperlipidemia, Hypertension, Malignancy Parental Family History Reviewed: Yes Children Family History Reviewed: Yes Sibling(s) Family History Reviewed.: Yes Medication/Allergy Home Medications: Albuterol Sulfate [Proair Hfa Inhalation Aerosol 8.5 gm Mdi] 2 puff IH Q6HP PRN 01/26/19 Albuterol Sulfate [Ventolin 0.083% Neb 2.5 mg/3 ml Ampul] 1 vial NEB RTDAILYP PRN 01/26/19 Amlodipine Besylate [Norvasc 5 mg Tablet] 5 mg PO DAILY 01/26/19 Atorvastatin Calcium [Lipitor 40 mg Tablet] 40 mg PO DAILY 01/26/19 Benzonatate [Tessalon Perles 100 mg Capsule] 100 mg PO Q8HP PRN 01/26/19 Cefdinir [Omnicef 300 mg Capsule] 300 mg PO BID 01/26/19 Exenatide Microspheres [Bydureon Pen] 2 mg SQ CHAPMAN@1000 01/26/19 Finasteride [Proscar 5 mg Tablet] 5 mg PO DAILY 01/26/19 Gabapentin [Neurontin 100 mg Capsule] 100 mg PO Q12 01/26/19 Insulin Aspart [Novolog Flexpen] 40 unit SUBCUT TID 01/26/19 Insulin Glargine,Hum.rec.anlog [Lantus Insulin Inj 300 Unit/3 ml Pen] 80 unit SUBCUT QHS 01/26/19 Isosorbide Mononitrate [Imdur 60 mg Tablet.er] 60 mg PO DAILY 01/26/19 Linagliptin [Tradjenta] 5 mg PO DAILY 01/26/19 Lisinopril [Prinivil 10 mg Tablet] 10 mg PO DAILY 01/26/19 Metoprolol Tartrate [Lopressor 25 mg Tablet] 25 mg PO Q12 01/26/19 Montelukast Sodium [Singulair 10 mg Tablet] 10 mg PO DAILY 01/26/19 Omeprazole 40 mg PO DAILY 01/26/19 Allergies/Adverse Reactions: clopidogrel bisulfate [From Plavix] Adverse Reaction (Severe, Verified 01/26/19 17:20) bleeding from ear/NOSE Review of Systems Constitutional: ABSENT: anorexia, headache(s), night sweats Eyes: ABSENT: visual disturbances Ears: ABSENT: hearing changes Nose, Mouth, and Throat: ABSENT: mouth pain, sore throat Cardiovascular: PRESENT: dyspnea on exertion. ABSENT: orthropnea, palpitations Respiratory: PRESENT: cough. ABSENT: hemoptysis Gastrointestinal: ABSENT: abdominal pain, bloating, coffee ground emesis, dysphagia, hematemesis, hematochezia, melena, nausea, vomiting Genitourinary: ABSENT: dysuria, hematuria Musculoskeletal: ABSENT: joint swelling Integumentary: ABSENT: pruritus, rash Neurological: ABSENT: abnormal gait, abnormal movements, abnormal speech, confusion, focal weakness, frequent falls, lack of coordination, memory loss, numbness Psychiatric: ABSENT: hallucinations, homidical ideation, suicidal ideation Endocrine: ABSENT: cold intolerance, heat intolerance, polydipsia, polyuria Hematologic/Lymphatic: ABSENT: easy bruising, lymphadenopathy Allergic/Immunologic: ABSENT: seasonal rhinorrhea Physical Exam Vital Signs: Temp Pulse Resp BP Pulse Ox 97.9 F 69 20 131/68 H 96 01/28/19 11:33 01/28/19 11:33 01/28/19 11:33 01/28/19 11:33 01/28/19 11:33 Intake & Output 01/27/19 01/28/19 01/29/19 06:59 06:59 06:59 Intake Total 1144 3128 453 Output Total 600 750 Balance 544 2988 453 Weight 81.8 kg 83 kg General appearance: PRESENT: no acute distress, disheveled, obese Head exam: PRESENT: atraumatic, normocephalic Eye exam: PRESENT: conjunctiva pale, EOMI Mouth exam: ABSENT: dry mucosa, neck supple, tongue midline Teeth exam: PRESENT: edentulous Neck exam: ABSENT: carotid bruit, full ROM, JVD, lymphadenopathy, meningismus, tenderness, thyromegaly, tracheal deviation, tracheostomy, other Respiratory exam: PRESENT: decreased breath sounds, prolonged expiratory phas, rhonchi, unlabored, wheezes Cardiovascular exam: PRESENT: RRR, +S1, +S2, systolic murmur Pulses: PRESENT: normal radial pulses GI/Abdominal exam: PRESENT: soft. ABSENT: tenderness Extremities exam: ABSENT: calf tenderness, clubbing, joint swelling Musculoskeletal exam: ABSENT: deformity, dislocation Neurological exam: PRESENT: alert, awake Psychiatric exam: PRESENT: appropriate affect Skin exam: PRESENT: dry, warm Results Laboratory Results: 01/28/19 04:42 01/28/19 04:42 01/28/19 01/28/19 04:42 04:42 WBC 9.8 RBC 4.72 Hgb 13.0 L Hct 38.4 MCV 81 MCH 27.4 MCHC 33.7 RDW 14.4 H Plt Count 211 Seg Neutrophils % 59.4 Lymphocytes % 27.5 Monocytes % 7.9 Eosinophils % 4.1 Basophils % 1.1 Absolute Neutrophils 5.8 Absolute Lymphocytes 2.7 Absolute Monocytes 0.8 Absolute Eosinophils 0.4 Absolute Basophils 0.1 Sodium 134.7 L Potassium 5.0 Chloride 105 Carbon Dioxide 21 L Anion Gap 9 BUN 26 H Creatinine 1.12 Est GFR ( Amer) > 60 Est GFR (Non-Af Amer) > 60 Glucose 278 H Calcium 8.9 Magnesium 1.7 01/26/19 22:11 Clean Catch Midstream Urine Culture - Final 5,000 col/ml 01/26/19 01/26/19 01/26/19 17:00 23:11 23:11 Creatine Kinase 128 CK-MB (CK-2) 1.55 Troponin I < 0.012 > 0.012 01/27/19 01/27/19 01/27/19 05:02 05:02 11:05 Creatine Kinase 128 109 CK-MB (CK-2) 1.40 Troponin I < 0.012 01/27/19 11:05 Creatine Kinase CK-MB (CK-2) 1.00 Troponin I < 0.012 Impressions: Chest X-Ray 01/26/19 16:21 IMPRESSION: Mild bibasilar reticular opacities possibly atelectatic change or developing infection. Head MRI 01/26/19 17:26 IMPRESSION: MINIMAL MICROVASCULAR ISCHEMIC CHANGE. Small bilateral mastoid effusions. EVIDENCE OF ACUTE STROKE: NO. Abdomen/Pelvis CT 01/26/19 18:56 IMPRESSION: No evidence for nephrolithiasis or urinary obstruction. No acute pathology. Carotid Doppler Study 01/27/19 00:00 IMPRESSION: Mild visible atheromatous plaque formation bilaterally. No sonographic evidence for severe stenosis. Somewhat elevated ECA velocities bilaterally, nonspecific finding. Normal antegrade flow in the vertebral arteries. copyright 2011 [employer]- All Rights Reserved Chest CT 01/27/19 00:00 IMPRESSION: Mosaic attenuation throughout both lungs which can be seen with small airway disease/ air trapping. Mild areas of bibasilar ground-glass attenuation, likely hypoventilatory change although infection/inflammation is not entirely excluded. No dense lobar consolidation. Assessment & Plan - Diagnosis (1) Dyspnea Is this a current diagnosis for this admission?: Yes Plan: Check ABG and bedside spirometry (2) Coronary artery disease Qualifiers: Coronary Disease-Associated Artery/Lesion type: unspecified vessel or lesion type Is this a current diagnosis for this admission?: Yes Plan: Stents x5 currently without complaint of angina (3) Hypertension Qualifiers: Hypertension type: essential hypertension Is this a current diagnosis for this admission?: Yes Plan: Stable at this time (4) Sleep apnea syndrome Qualifiers: Sleep apnea type: unspecified type Is this a current diagnosis for this admission?: Yes Plan: History but not currently wearing his noninvasive positive pressure ventilation
[2019-01-28] MEDS: INSULIN GLARGINE,HUM.REC.ANLOG 300 UNIT/3 ML INSULN.PEN SUBCUT SCH (22:45)
[2019-01-29] MEDS: PANTOPRAZOLE SODIUM 40 MG TABLET.DR PO SCH (06:20)
[2019-01-29 06:23] LABS: ABSOLUTE BASOPHILS # (AUTO) 0.1 10^3/uL (0.0-0.2); ABSOLUTE EOSINOPHILS # (AUTO) 0.4 10^3/uL (0.0-0.6); ABSOLUTE LYMPHOCYTES (AUTO) 2.5 10^3/uL (0.5-4.7); ABSOLUTE MONOCYTES (AUTO) 0.7 10^3/uL (0.1-1.4); ABSOLUTE NEUT (AUTO) 3.7 10^3/uL (1.7-8.2); BASOPHILS % (AUTO) 1.2 % (0-2); EOSINOPHILS % (AUTO) 5.1 % (0-6); HEMATOCRIT 37.8 % (37.9-51.0); HEMOGLOBIN 12.8 g/dL (13.5-17.0); LYMPHOCYTES % (AUTO) 33.7 % (13-45); MEAN CORPUSCULAR HEMOGLOBIN 27.7 pg (27.0-33.4); MEAN CORPUSCULAR HGB CONC 33.9 g/dL (32.0-36.0); MEAN CORPUSCULAR VOLUME 82 fl (80-97); MONOCYTES % (AUTO) 9.2 % (3-13); PLATELET COUNT 182 10^3/uL (150-450); RED BLOOD COUNT 4.62 10^6/uL (4.35-5.55); RED CELL DISTRIBUTION WIDTH 14.3 % (11.5-14.0); SEGMENTED NEUTROPHILS % (AUTO) 50.8 % (42-78); TOTAL CELLS COUNTED % (AUTO) 100 %; WHITE BLOOD COUNT 7.3 10^3/uL (4.0-10.5)
[2019-01-29 06:39] LABS: ARTERIAL BLOOD BASE EXCESS -5.2 mmol/L; ARTERIAL BLOOD H2CO3 1.11 mmol/L (1.05-1.35); ARTERIAL BLOOD HCO3 19.8 mmol/L (20-24); ARTERIAL BLOOD O2 SATURATION 95.2 % (94-98); ARTERIAL BLOOD PCO2 36.9 mmHg (35-45); ARTERIAL BLOOD PH 7.35 (7.35-7.45); ARTERIAL BLOOD PO2 78.9 mmHg (80-100)
[2019-01-29 06:40] LABS: ARTERIAL BLOOD FIO2 21%
[2019-01-29 06:46] LABS: ANION GAP 7 (5-19); BLOOD UREA NITROGEN 23 mg/dL (7-20); CALCIUM 8.8 mg/dL (8.4-10.2); CARBON DIOXIDE 20 mmol/L (22-30); CHLORIDE 110 mmol/L (98-107); GLUCOSE 222 mg/dL (75-110); SODIUM 136.6 mmol/L (137-145)
[2019-01-29] MEDS: INSULIN LISPRO 100 UNIT/ML 3 ML VIAL SUBCUT SCH ×2 (07:45→07:46)
[2019-01-29] MEDS: IPRATROPIUM/ALBUTEROL 0.5-2.5 MG/3 ML AMPUL NEB PRN (07:53)
[2019-01-29 08:23] VITALS: BP 136/65
--- NOTE | 2019-01-29 08:54 | PDOC DISCHARGE SUMMARY ---
General - Admit/Disc Date/PCP Admission Date/Primary Care Provider: 01/26/19 19:38 ZAIRE GEIGER MD Discharge Date: 01/29/19 - Discharge Diagnosis (1) Dizziness Is this a current diagnosis for this admission?: Yes Summary: Currently all resolved most likely due to the from dehydration's patient MRI is negative patient carotid Doppler is all stable no cardiac conditions (2) Hyperglycemia due to type 2 diabetes mellitus Is this a current diagnosis for this admission?: Yes Summary: Resolving most likely due to the noncompliance with the diet Will refer to the meat smoker (3) Hyperkalemia Is this a current diagnosis for this admission?: Yes Summary: Currently all resolved will currently hold the lisinopril (4) Weakness Is this a current diagnosis for this admission?: Yes Summary: Currently all stable patient is walking the hallway without any problems (5) Acute kidney failure Is this a current diagnosis for this admission?: Yes Summary: Encouraged to increase the more IV fluid currently hold the lisinopril (6) Coronary artery disease Is this a current diagnosis for this admission?: Yes Summary: Patient's all cardiac enzymes and EKG all stable the patient is to follow with the outpatients cardiology Dr. Victor in [place] (7) Hyperlipidemia Is this a current diagnosis for this admission?: Yes Summary: Currently all stable (8) Hypertension Is this a current diagnosis for this admission?: Yes Summary: Continues to current medications (9) Pneumonia Is this a current diagnosis for this admission?: Yes Summary: As per discussed with Dr. Cole pulmonary suggest the covered with the Levaquin (10) COPD (chronic obstructive pulmonary disease) Is this a current diagnosis for this admission?: Yes Summary: Continues use the nebulizer treatment as needed and continues use the inhaler (11) Sleep apnea syndrome Is this a current diagnosis for this admission?: Yes Summary: Patient is not using the CPAP Patients every time he use it he is unable to use it because is not feeling better with that discussed with Dr. Cole he will redo the study and readjust the CPAP as outpatient - Additional Information Resuscitation Status: Full Code Discharge Diet: Diabetic Discharge Activity: Activity As Tolerated Prescriptions: Levofloxacin [Levaquin 500 mg Tablet] 500 mg PO DAILY #7 tablet Home Medications: Albuterol Sulfate [Proair HFA Inhalation Aerosol 8.5 gm MDI] 2 puff IH Q6HP PRN 01/26/19 Albuterol Sulfate [Ventolin 0.083% Neb 2.5 mg/3 mL Ampul] 1 vial NEB RTDAILYP PRN 01/26/19 Amlodipine Besylate [Norvasc 5 mg Tablet] 5 mg PO DAILY 01/26/19 Atorvastatin Calcium [Lipitor 40 mg Tablet] 40 mg PO DAILY 01/26/19 Benzonatate [Tessalon Perles 100 mg Capsule] 100 mg PO Q8HP PRN 01/26/19 Finasteride [Proscar 5 mg Tablet] 5 mg PO DAILY 01/26/19 Gabapentin [Neurontin 100 mg Capsule] 100 mg PO Q12 01/26/19 Insulin Aspart [Novolog Flexpen] 40 unit SUBCUT TID 01/26/19 Insulin Glargine,Hum.rec.anlog [Lantus Insulin 100 Unit/mL] 80 unit SUBCUT QHS 01/26/19 Isosorbide Mononitrate [Imdur 60 mg Tablet.er] 60 mg PO DAILY 01/26/19 Linagliptin [Tradjenta] 5 mg PO DAILY 01/26/19 Metoprolol Tartrate [Lopressor 25 mg Tablet] 25 mg PO Q12 01/26/19 Montelukast Sodium [Singulair 10 mg Tablet] 10 mg PO DAILY 01/26/19 Omeprazole 40 mg PO DAILY 01/26/19 Levofloxacin [Levaquin 500 mg Tablet] 500 mg PO DAILY #7 tablet 01/29/19 History of Present Illness History of Present Illness: TAHIR FOURNIER is a 63 year old male This is a 63-year-old male recently admitted with acute renal failure hyperkalemia bronchitis just discharged 2 days back came to the emergency department feeling weak and dizzy and not feeling well Patient is denied any chest pain to than any shortness of the breath Patient is full some nauseating Patient is denied any abdominal pain No fever no chills In the emergency department patient's underwent for the MRI of the head was negative for any acute finding Patient also found acute renal failure with hyperkalemia At this point decided to admit for further evaluation Patient's blood sugar is also elevated Patient's a CT abdomen and pelvis was done in the ER was also negative for any acute finding Discussed with the patient and the family on the bedside in the ER Hospital Course Hospital Course: this is a 63-year-old male with a multiple medical problem as able present in the emergency department second time after the discharge because of the feeling weak still continues to cough and found to be as usual renal failure hyperkalemia Patient admitting in the hospital give IV fluid correct the potassiums and correct the electrolytes Patient also was complaining of a dizzy in the admissions underwent for the MRI which is negative for any acute finding also underwent for the carotid Doppler which is not significant stenosis The patient all cardiac enzyme is negative EKG is all stable Patient underwent for the CT of the chest with some atypical finding with small airways disease and a pulmonary Dr. Cole was consulted The patient's at this point is after IV fluid and IV antibiotic feeling much better Patient's p.o. intake is good Patient is a noncompliance with the diet and patient's blood sugar is always running high At this point diabetic educations is done in the hospital with the dietitians patient and understand very well about the diet Patient is also taking the Bydureon once a week and I believe sometimes people feel nauseating and will stop on the discharge Patient also stop the lisinopril due to the on and off hyperkalemia with renal failure Patient is otherwise walking the hallway without any problems Patient is desirous to wants to go home's Discussed with Dr. Cole and suggest follow outpatient and cover with the antibiotic Levaquin Physical Exam Vital Signs: Temp Pulse Resp BP Pulse Ox 98.1 F 60 14 136/65 H 94 01/29/19 07:31 01/29/19 07:53 01/29/19 07:53 01/29/19 07:31 01/29/19 07:53 Intake & Output 01/28/19 01/29/19 01/30/19 06:59 06:59 06:59 Intake Total 3128 2186 Output Total 750 1400 Balance 2378 786 Weight 83 kg 82.9 kg General appearance: PRESENT: no acute distress, well-developed, well-nourished Head exam: PRESENT: atraumatic, normocephalic Eye exam: PRESENT: conjunctiva pink, EOMI, PERRLA. ABSENT: scleral icterus Ear exam: PRESENT: normal external ear exam Mouth exam: PRESENT: moist, tongue midline Neck exam: PRESENT: full ROM. ABSENT: carotid bruit, JVD, lymphadenopathy, thyromegaly Respiratory exam: PRESENT: clear to auscultation raya Cardiovascular exam: PRESENT: RRR. ABSENT: diastolic murmur, rubs, systolic murmur Vascular exam: PRESENT: normal capillary refill GI/Abdominal exam: PRESENT: normal bowel sounds, soft. ABSENT: distended, guarding, mass, organolmegaly, rebound, tenderness Rectal exam: PRESENT: deferred Musculoskeletal exam: PRESENT: ambulatory Neurological exam: PRESENT: alert, awake, oriented to person, oriented to place, oriented to time, oriented to situation, CN II-XII grossly intact. ABSENT: motor sensory deficit Psychiatric exam: PRESENT: appropriate affect, normal mood. ABSENT: homicidal ideation, suicidal ideation Skin exam: PRESENT: dry, intact, warm. ABSENT: cyanosis, rash Results Laboratory Results: 01/29/19 05:09 01/29/19 05:09 01/29/19 01/29/19 01/29/19 05:09 05:09 05:57 WBC 7.3 RBC 4.62 Hgb 12.8 L Hct 37.8 L MCV 82 MCH 27.7 MCHC 33.9 RDW 14.3 H Plt Count 182 Seg Neutrophils % 50.8 Lymphocytes % 33.7 Monocytes % 9.2 Eosinophils % 5.1 Basophils % 1.2 Absolute Neutrophils 3.7 Absolute Lymphocytes 2.5 Absolute Monocytes 0.7 Absolute Eosinophils 0.4 Absolute Basophils 0.1 Carbonic Acid 1.11 HCO3/H2CO3 Ratio 17:1 ABG pH 7.35 ABG pCO2 36.9 ABG pO2 78.9 L ABG HCO3 19.8 L ABG O2 Saturation 95.2 ABG Base Excess -5.2 FiO2 21% Sodium 136.6 L Potassium 5.0 Chloride 110 H Carbon Dioxide 20 L Anion Gap 7 BUN 23 H Creatinine 0.91 Est GFR ( Amer) > 60 Est GFR (Non-Af Amer) > 60 Glucose 222 H Calcium 8.8 Magnesium 1.9 01/26/19 22:11 Clean Catch Midstream Urine Culture - Final 5,000 col/ml 01/26/19 01/26/19 01/26/19 17:00 23:11 23:11 Creatine Kinase 128 CK-MB (CK-2) 1.55 Troponin I < 0.012 > 0.012 01/27/19 01/27/19 01/27/19 05:02 05:02 11:05 Creatine Kinase 128 109 CK-MB (CK-2) 1.40 Troponin I < 0.012 01/27/19 11:05 Creatine Kinase CK-MB (CK-2) 1.00 Troponin I < 0.012 Impressions: Chest X-Ray 01/26/19 16:21 IMPRESSION: Mild bibasilar reticular opacities possibly atelectatic change or developing infection. Head MRI 01/26/19 17:26 IMPRESSION: MINIMAL MICROVASCULAR ISCHEMIC CHANGE. Small bilateral mastoid effusions. EVIDENCE OF ACUTE STROKE: NO. Abdomen/Pelvis CT 01/26/19 18:56 IMPRESSION: No evidence for nephrolithiasis or urinary obstruction. No acute pathology. Carotid Doppler Study 01/27/19 00:00 IMPRESSION: Mild visible atheromatous plaque formation bilaterally. No sonographic evidence for severe stenosis. Somewhat elevated ECA velocities bilaterally, nonspecific finding. Normal antegrade flow in the vertebral arteries. copyright 2011 [employer]- All Rights Reserved Chest CT 01/27/19 00:00 IMPRESSION: Mosaic attenuation throughout both lungs which can be seen with small airway disease/ air trapping. Mild areas of bibasilar ground-glass attenuation, likely hypoventilatory change although infection/inflammation is not entirely excluded. No dense lobar consolidation. Qualifiers - * PATIENT BEING DISCHARGED WITH ANY OF THE FOLLOWING DIAGNOSIS: No VTE patient discharged on overlapping Therapy?: Yes Plan Time Spent: Greater than 30 Minutes - Follow in office 1 week We will repeat the Chem-7 Referred to the meat smoker as outpatient Follow with the pulmonary and cardiology
[2019-01-29] MEDS: CEFEPIME 2 GM/D5W RTU 2 GM/50 ML RTUPB IV SCH (09:38)
[2019-01-29] MEDS: ENOXAPARIN SODIUM INJ 40 MG/0.4 ML DISP.SYRIN SUBCUT SCH (09:39)
[2019-01-29] MEDS: SITAGLIPTIN PHOSPHATE 50 MG TABLET PO SCH (09:44)
[2019-01-29] MEDS: ATORVASTATIN CALCIUM 40 MG TABLET PO SCH (09:45)
[2019-01-29] MEDS: GABAPENTIN 100 MG CAPSULE PO SCH (09:45)
[2019-01-29] MEDS: ISOSORBIDE MONONITRATE 60 MG TAB.ER.24H PO SCH (09:45)
[2019-01-29] MEDS: MONTELUKAST SODIUM 10 MG TABLET PO SCH (09:45)
[2019-01-29] MEDS: METOPROLOL TARTRATE 25 MG TABLET PO SCH (09:45)
[2019-01-29] MEDS: FINASTERIDE 5 MG TABLET PO SCH (09:45)
[2019-01-29] MEDS: AMLODIPINE BESYLATE 5 MG TABLET PO SCH (09:45)
== END 2019-01-29 11:49 | disposition home or self-care (01) ==
LOC: ER 16:17 → EH 19:38 → OBSVTOIN 19:38 → INTOOBSV 19:38 → 4N 21:31
PROVIDERS: ADMIT Family Medicine; ATTEND Family Medicine
DX: R42 Dizziness and giddiness (principal); E11.65 Type 2 diabetes mellitus with hyperglycemia; E87.5 Hyperkalemia; R53.1 Weakness; N17.9 Acute kidney failure, unspecified; I25.10 Atherosclerotic heart disease of native coronary artery without angina pectoris; E78.5 Hyperlipidemia, unspecified; I10 Essential (primary) hypertension; J18.9 Pneumonia, unspecified organism; J44.9 Chronic obstructive pulmonary disease, unspecified; G47.30 Sleep apnea, unspecified; E66.9 Obesity, unspecified; R53.83 Other fatigue; Z91.14 Patient's other noncompliance with medication regimen; Z91.11 Patient's noncompliance with dietary regimen; Z87.891 Personal history of nicotine dependence; Z95.5 Presence of coronary angioplasty implant and graft; Z82.49 Family history of ischemic heart disease and other diseases of the circulatory system; Z82.3 Family history of stroke; Z79.4 Long term (current) use of insulin; Z79.899 Other long term (current) drug therapy
CPT/HCPCS: 93005; 99285; 36415 ×4; 87040; 87086; 82553 ×2; 82962 ×4; 82803; 82550 ×2; 83735 ×3; 85025 ×4; 85610; 80048 ×2; 80053 ×2; 81001; 84484 ×2; 83605; 93880; 70551; 71045; 71250; 74176; 93010; 36600; 94640 ×2; J1815 ×6; J3490 ×22; J1650 ×2; J2550; J7030 ×3; J7620 ×2; J0692 ×3

== ENCOUNTER 2019-03-31 18:19 | Inpatient (IN) | payer MEDICAID ==
[2019-03-31] MEDS ORDERED: NORMAL SALINE 1000 ML 250 ML IV ONE (18:45)
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
[2019-03-31 19:13] LABS: ABSOLUTE BASOPHILS # (AUTO) 0.1 10^3/uL (0.0-0.2); ABSOLUTE EOSINOPHILS # (AUTO) 0.3 10^3/uL (0.0-0.6); ABSOLUTE LYMPHOCYTES (AUTO) 2.9 10^3/uL (0.5-4.7); ABSOLUTE MONOCYTES (AUTO) 0.4 10^3/uL (0.1-1.4); ABSOLUTE NEUT (AUTO) 2.7 10^3/uL (1.7-8.2); BASOPHILS % (AUTO) 1.2 % (0-2); EOSINOPHILS % (AUTO) 4.9 % (0-6); HEMATOCRIT 40.9 % (37.9-51.0); HEMOGLOBIN 13.9 g/dL (13.5-17.0); LYMPHOCYTES % (AUTO) 45.1 % (13-45); MEAN CORPUSCULAR HEMOGLOBIN 28.8 pg (27.0-33.4); MEAN CORPUSCULAR HGB CONC 33.9 g/dL (32.0-36.0); MEAN CORPUSCULAR VOLUME 85 fl (80-97); MONOCYTES % (AUTO) 5.7 % (3-13); PLATELET COUNT 242 10^3/uL (150-450); RED BLOOD COUNT 4.81 10^6/uL (4.35-5.55); RED CELL DISTRIBUTION WIDTH 14.6 % (11.5-14.0); SEGMENTED NEUTROPHILS % (AUTO) 43.1 % (42-78); TOTAL CELLS COUNTED % (AUTO) 100 %; WHITE BLOOD COUNT 6.4 10^3/uL (4.0-10.5)
[2019-03-31 19:45] LABS: CREATINE KINASE MB 1.23 ng/mL (<4.55); NT PRO BNP 52 pg/mL (5-900)
[2019-03-31 19:48] LABS: ALANINE AMINOTRANSFERASE 27 U/L (21-72); ALBUMIN 4.1 g/dL (3.5-5.0); ALKALINE PHOSPHATASE 111 U/L (38-126); ANION GAP 13 (5-19); ASPARTATE AMINO TRANSFERASE 25 U/L (17-59); BILIRUBIN,DIRECT 0.4 mg/dL (0.0-0.4); BILIRUBIN,TOTAL 0.4 mg/dL (0.2-1.3); BLOOD UREA NITROGEN 41 mg/dL (7-20); CALCIUM 9.8 mg/dL (8.4-10.2); CARBON DIOXIDE 20 mmol/L (22-30); CHLORIDE 107 mmol/L (98-107); CREATINE KINASE 90 U/L (55-170); GLUCOSE 230 mg/dL (75-110); POTASSIUM 4.7 mmol/L (3.6-5.0); SODIUM 140.2 mmol/L (137-145); TOTAL PROTEIN 7.5 g/dL (6.3-8.2); TROPONIN I < 0.012 ng/mL
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
--- NOTE | 2019-03-31 20:21 | RADIOLOGY REPORT (SQ) ---
EXAM DESCRIPTION: XR CHEST 1 VIEW COMPLETED DATE/TME: 03/31/2019 00:00 CLINICAL HISTORY: 63 years, Male, SOB COMPARISON: Prior study from 01/27/2019 NUMBER OF VIEWS: One TECHNIQUE: Single frontal view of the chest was obtained portably LIMITATIONS: None. FINDINGS: Cardiac and mediastinal contours are stable. Lungs are clear. No pleural effusion or pneumothorax. IMPRESSION: No acute disease. copyright 2010 [employer]- All Rights Reserved
[2019-03-31] MEDS ORDERED: ONDANSETRON 4 MG TAB.RAPDIS PO PRN (21:01)
[2019-03-31] MEDS ORDERED: ACETAMINOPHEN 325 MG TABLET PO PRN (21:01)
[2019-03-31] MEDS ORDERED: IPRATROPIUM/ALBUTEROL 0.5-2.5 MG/3 ML AMPUL NEB PRN (21:01)
--- NOTE | 2019-03-31 21:02 | RADIOLOGY REPORT (SQ) ---
EXAM DESCRIPTION: CT HEAD WITHOUT IV CONTRAST COMPLETED DATE/TME: 03/31/2019 20:21 CLINICAL HISTORY: 63 years, Male, lightheaded COMPARISON: Prior study from 01/26/2019 TECHNIQUE: Noncontrast CT of the head was performed. Coronal and sagittal reformations were created. Images stored on PACS. All CT scanners at this facility use dose modulation, iterative reconstruction, and/or weight based dosing when appropriate to reduce radiation dose to as low as reasonably achievable (ALARA). [facility]: Dose Right [facility]: CareDose [facility]: Dose Right [facility]: Teradose 4D [facility]: My[employer] LIMITATIONS: None. FINDINGS: Evaluation of the brain parenchyma reveals minimal periventricular and patchy subcortical white matter low attenuation. No acute intracranial hemorrhage, mass effect, or extra-axial fluid is seen. The ventricles and sulcal spaces are normal in size and configuration for age. Globes and orbits show no acute traumatic. Paranasal sinuses are clear. Mild opacity is evident within the left mastoid air cells. Otherwise, both mastoid air cells appear underdeveloped. No depressed skull fractures. IMPRESSION: No acute intracranial abnormality. Mild chronic microvascular ischemic change. TECHNICAL DOCUMENTATION: Quality ID # [id number]: Final reports with documentation of one or more dose reduction techniques (e.g., Automated exposure control, adjustment of the mA and/or kV according to patient size, use of iterative reconstruction technique) copyright 2011 [employer]- All Rights Reserved
[2019-03-31] MEDS ORDERED: DEXTROSE 40% GEL 15 GM TUBE PO PRN ×4 (21:04→21:05)
[2019-03-31] MEDS ORDERED: GLUCAGON,HUMAN RECOMB 1 MG INJ IM PRN ×2 (21:04→21:05)
[2019-03-31] MEDS ORDERED: DEXTROSE 50%-WATER 25 GM/50 ML DISP.SYRIN IV PRN ×4 (21:04→21:05)
--- NOTE | 2019-03-31 21:06 | Progress Note ---
Provider Note Provider Note: pt see and examine in er and d/w with pt and brother
[2019-03-31] MEDS ORDERED: INSULIN GLARGINE,HUM.REC.ANLOG 1,000 UNIT/10 ML VIAL SUBCUT SCH (22:00)
[2019-03-31] MEDS: INSULIN LISPRO 100 UNIT/ML 3 ML VIAL SUBCUT SCH (22:48)
[2019-03-31] MEDS: FAMOTIDINE 20 MG TABLET PO SCH (22:49)
[2019-03-31] MEDS: NORMAL SALINE 1000 ML 1,000 ML IV PRN (22:50)
[2019-04-01 05:46] LABS: ABSOLUTE BASOPHILS # (AUTO) 0.1 10^3/uL (0.0-0.2); ABSOLUTE EOSINOPHILS # (AUTO) 0.3 10^3/uL (0.0-0.6); ABSOLUTE LYMPHOCYTES (AUTO) 2.2 10^3/uL (0.5-4.7); ABSOLUTE MONOCYTES (AUTO) 0.4 10^3/uL (0.1-1.4); ABSOLUTE NEUT (AUTO) 1.9 10^3/uL (1.7-8.2); BASOPHILS % (AUTO) 1.2 % (0-2); EOSINOPHILS % (AUTO) 5.7 % (0-6); HEMATOCRIT 36.6 % (37.9-51.0); HEMOGLOBIN 12.2 g/dL (13.5-17.0); LYMPHOCYTES % (AUTO) 46.2 % (13-45); MEAN CORPUSCULAR HEMOGLOBIN 28.1 pg (27.0-33.4); MEAN CORPUSCULAR HGB CONC 33.3 g/dL (32.0-36.0); MEAN CORPUSCULAR VOLUME 85 fl (80-97); PLATELET COUNT 174 10^3/uL (150-450); RED BLOOD COUNT 4.33 10^6/uL (4.35-5.55); RED CELL DISTRIBUTION WIDTH 14.5 % (11.5-14.0); SEGMENTED NEUTROPHILS % (AUTO) 38.9 % (42-78); TOTAL CELLS COUNTED % (AUTO) 100 %; WHITE BLOOD COUNT 4.8 10^3/uL (4.0-10.5)
[2019-04-01 06:09] LABS: ALANINE AMINOTRANSFERASE 21 U/L (21-72); ALBUMIN 3.2 g/dL (3.5-5.0); ALKALINE PHOSPHATASE 98 U/L (38-126); ANION GAP 10 (5-19); ASPARTATE AMINO TRANSFERASE 19 U/L (17-59); BILIRUBIN,DIRECT 0.3 mg/dL (0.0-0.4); BILIRUBIN,TOTAL 0.3 mg/dL (0.2-1.3); BLOOD UREA NITROGEN 38 mg/dL (7-20); CALCIUM 8.8 mg/dL (8.4-10.2); CARBON DIOXIDE 19 mmol/L (22-30); CHLORIDE 112 mmol/L (98-107); CREATINE KINASE 72 U/L (55-170); GLUCOSE 306 mg/dL (75-110); POTASSIUM 5.3 mmol/L (3.6-5.0); SODIUM 140.6 mmol/L (137-145); TOTAL PROTEIN 6.1 g/dL (6.3-8.2)
[2019-04-01 06:14] LABS: CREATINE KINASE MB 1.07 ng/mL (<4.55)
[2019-04-01 06:20] LABS: TROPONIN I < 0.012 ng/mL
[2019-04-01] MEDS: INSULIN LISPRO 100 UNIT/ML 3 ML VIAL SUBCUT SCH ×4 (08:02→21:54)
[2019-04-01] MEDS: ENOXAPARIN SODIUM INJ 30 MG/0.3 ML DISP.SYRIN SUBCUT SCH (10:04)
[2019-04-01] MEDS: NORMAL SALINE 1000 ML 1,000 ML IV PRN ×2 (10:04→21:57)
[2019-04-01] MEDS: FAMOTIDINE 20 MG TABLET PO SCH ×2 (10:04→21:53)
--- NOTE | 2019-04-01 10:33 | EKG REPORT ---
SEVERITY:- ABNORMAL ECG - SINUS RHYTHM ATRIAL PREMATURE COMPLEX LEFT ANTERIOR FASCICULAR BLOCK : Confirmed by: Jessi Ortega 01-Apr-2019 10:33:17
--- NOTE | 2019-04-01 10:34 | EKG REPORT ---
SEVERITY:- NORMAL ECG - SINUS RHYTHM MINOR NON SPECIFIC IVCD : Confirmed by: Jessi Ortega 01-Apr-2019 10:33:49
[2019-04-01 10:36] LABS: APPEARANCE,URINE CLEAR; BILIRUBIN,URINE NEGATIVE (NEGATIVE); COLOR,URINE STRAW; GLUCOSE, URINE >=500 mg/dL (NEGATIVE); KETONES,URINE NEGATIVE (NEGATIVE); LEUKOCYTE ESTERASE,URINE NEGATIVE (NEGATIVE); NITRITE,URINE NEGATIVE (NEGATIVE); PROTEIN,URINE NEGATIVE (NEGATIVE); URINE SPECIFIC GRAVITY 1.013; UROBILINOGEN,URINE NEGATIVE mg/dL (<2.0)
[2019-04-01 11:38] LABS: CREATINE KINASE MB 1.07 ng/mL (<4.55); NT PRO BNP 28 pg/mL (5-900)
[2019-04-01 11:44] LABS: TROPONIN I < 0.012 ng/mL
--- NOTE | 2019-04-01 12:05 | PDOC H&P ---
History of Present Illness Admission Date/PCP: 03/31/19 20:58 ZAIRE GEIGER MD Patient complains of: Dizziness and hypotension History of Present Illness: TAHIR FOURNIER is a 63 year old male This is a 63-year-old male with a significant medical problems including type 2 diabetes uncontrolled due to the noncompliance history of the hypertension's history of the hyperlipidemia history of the coronary artery disease recently had a stress test and echocardiogram done at [facility] was all stable per patient and multiple other comorbidity and multiple hospital admissions was working outside yesterday for a whole day and patients feel dehydrated came to the emergency department with the patient's blood pressure was running in the lower end with the systolic is around 80 patient was giving IV fluid Patient's creatinine is also go up to 1.87 Patients feel better Patient denied any chest pain to than any shortness of the breath No abdominal pain no nausea no vomiting Past Medical History Cardiac Medical History: Reports: Coronary Artery Disease - CARDIAC STENTS X5, Hyperlipidema, Hypertension Denies: Atrial Fibrillation, Congestive Heart Failure, Myocardial Infarction, Peripheral Vascular Disease, Pulmonary Embolism Pulmonary Medical History: Reports: Asthma, Bronchitis, Chronic Obstructive Pulmonary Disease (COPD), Pneumonia, Sleep Apnea Denies: Respiratory Failure, Tuberculosis Neurological Medical History: Denies: Seizures Endocrine Medical History: Reports: Diabetes Mellitus Type 2 Denies: Hyperthyroidism, Hypothyroidism Renal/ Medical History: Reports: Chronic Kidney Disease Denies: End Stage Renal Disease Malignancy Medical History: Denies: Leukemia, Lung Cancer GI Medical History: Reports: Gastroesophageal Reflux Disease, Hiatal Hernia Denies: Crohn's Disease Musculoskeltal Medical History: Reports: Arthritis - bursitis left shoulder, back bone spurs Denies: Fibromyalgia Psychiatric Medical History: Denies: Bipolar Disorder, Dementia, Depression, Post Traumatic Stress Disorder Hematology: Reports: Anemia Infectious Medical History: Denies: HIV Past Surgical History Past Surgical History: Reports: Cardiac Catheterization - 5 stents, Cholecystectomy, Coronary Stent, Orthopedic Surgery - right leg, back surgery, Tonsillectomy Denies: Appendectomy, Colostomy, Coronary Artery Bypass Graft, Gastric Bypass Surgery, Herniorrhaphy, Pacemaker Social History Smoking Status: Former Smoker Last Time Smoked: 1992 Frequency of Alcohol Use: Rare Hx Recreational Drug Use: No Drugs: None Hx Prescription Drug Abuse: No Family History Family History: Arthritis, CAD, CVA, DM, Hyperlipidemia, Hypertension, Malignancy Parental Family History Reviewed: Yes Children Family History Reviewed: Yes Sibling(s) Family History Reviewed.: Yes Medication/Allergy Home Medications: Amlodipine Besylate [Norvasc 5 mg Tablet] 5 mg PO DAILY 01/26/19 Atorvastatin Calcium [Lipitor 40 mg Tablet] 40 mg PO DAILY 01/26/19 Finasteride [Proscar 5 mg Tablet] 5 mg PO DAILY 01/26/19 Insulin Aspart [Novolog Flexpen] 60 unit SUBCUT ACHS 01/26/19 Insulin Glargine,Hum.rec.anlog [Lantus Insulin 100 Unit/mL] 80 unit SUBCUT QHS 01/26/19 Isosorbide Mononitrate [Imdur 60 mg Tablet.er] 60 mg PO DAILY 01/26/19 Linagliptin [Tradjenta] 5 mg PO DAILY 01/26/19 Metoprolol Tartrate [Lopressor 25 mg Tablet] 25 mg PO Q12 01/26/19 Montelukast Sodium [Singulair 10 mg Tablet] 10 mg PO DAILY 01/26/19 Omeprazole 40 mg PO DAILY 01/26/19 Aspirin [Ecotrin 81 mg EC Tablet] 81 mg PO DAILY 04/01/19 Budesonide/Formoterol Fumarate [Symbicort Hfa 160-4.5 Mcg Inhaler 6 gm] 2 puff IH Q12 04/01/19 Gabapentin [Neurontin 300 mg Capsule] 300 mg PO Q12 04/01/19 Levocetirizine Dihydrochloride [Xyzal] 5 mg PO QHS 04/01/19 Lisinopril [Prinivil 5 mg Tablet] 5 mg PO DAILY 04/01/19 Tamsulosin HCl [Flomax 0.4 mg Cap.sr] 0.4 mg PO DAILY 04/01/19 Allergies/Adverse Reactions: clopidogrel bisulfate [From Plavix] Adverse Reaction (Severe, Verified 03/31/19 18:20) bleeding from ear/NOSE Review of Systems Constitutional: ABSENT: chills, fever(s), headache(s), weight gain, weight loss Eyes: ABSENT: visual disturbances Ears: ABSENT: hearing changes Cardiovascular: ABSENT: chest pain, dyspnea on exertion, edema, orthropnea, palpitations Respiratory: ABSENT: cough, hemoptysis Gastrointestinal: ABSENT: abdominal pain, constipation, diarrhea, hematemesis, hematochezia, nausea, vomiting Genitourinary: ABSENT: dysuria, hematuria Musculoskeletal: ABSENT: joint swelling Integumentary: ABSENT: rash, wounds Neurological: PRESENT: dizziness. ABSENT: abnormal gait, abnormal speech, confusion, focal weakness, syncope Psychiatric: ABSENT: anxiety, depression, homidical ideation, suicidal ideation Endocrine: ABSENT: cold intolerance, heat intolerance, menstrual abnormalities, polydipsia, polyuria Hematologic/Lymphatic: ABSENT: easy bleeding, easy bruising, lymphadenopathy Physical Exam Vital Signs: Temp Pulse Resp BP Pulse Ox 97.8 F 63 18 152/69 H 94 04/01/19 07:46 04/01/19 07:46 04/01/19 07:46 04/01/19 07:46 04/01/19 07:46 Intake & Output 03/31/19 04/01/19 04/02/19 06:59 06:59 06:59 Intake Total 250 1000 Balance 250 1000 Weight 86.2 kg General appearance: PRESENT: no acute distress, well-developed, well-nourished Head exam: PRESENT: atraumatic, normocephalic Eye exam: PRESENT: conjunctiva pink, EOMI, PERRLA. ABSENT: scleral icterus Ear exam: PRESENT: normal external ear exam Mouth exam: PRESENT: moist, tongue midline Neck exam: PRESENT: full ROM. ABSENT: carotid bruit, JVD, lymphadenopathy, thyromegaly Respiratory exam: PRESENT: clear to auscultation raya Cardiovascular exam: PRESENT: RRR. ABSENT: diastolic murmur, rubs, systolic murmur Pulses: PRESENT: normal dorsalis pedis pul, +2 pedal pulses bilateral Vascular exam: PRESENT: normal capillary refill GI/Abdominal exam: PRESENT: normal bowel sounds, soft. ABSENT: distended, guarding, mass, organolmegaly, rebound, tenderness Rectal exam: PRESENT: deferred Extremities exam: ABSENT: pedal edema Neurological exam: PRESENT: alert, awake, oriented to person, oriented to place, oriented to time, oriented to situation, CN II-XII grossly intact. ABSENT: motor sensory deficit Psychiatric exam: PRESENT: appropriate affect, normal mood. ABSENT: homicidal ideation, suicidal ideation Skin exam: PRESENT: dry, intact, warm. ABSENT: cyanosis, rash Results Laboratory Results: 04/01/19 04:35 04/01/19 04:35 03/31/19 03/31/19 03/31/19 18:50 18:50 18:50 WBC 6.4 RBC 4.81 Hgb 13.9 Hct 40.9 MCV 85 MCH 28.8 MCHC 33.9 RDW 14.6 H Plt Count 242 Seg Neutrophils % 43.1 Lymphocytes % 45.1 H Monocytes % 5.7 Eosinophils % 4.9 Basophils % 1.2 Absolute Neutrophils 2.7 Absolute Lymphocytes 2.9 Absolute Monocytes 0.4 Absolute Eosinophils 0.3 Absolute Basophils 0.1 Sodium 140.2 Potassium 4.7 Chloride 107 Carbon Dioxide 20 L Anion Gap 13 BUN 41 H Creatinine 1.87 H Est GFR ( Amer) 44 L Est GFR (Non-Af Amer) 37 L Glucose 230 H Lactic Acid Calcium 9.8 Magnesium 2.0 Total Bilirubin 0.4 AST 25 ALT 27 Alkaline Phosphatase 111 Total Protein 7.5 Albumin 4.1 Urine Color Urine Appearance Urine pH Ur Specific [place] Urine Protein Urine Glucose (UA) Urine Ketones Urine Blood Urine Nitrite Ur Leukocyte Esterase Urine WBC (Auto) Urine RBC (Auto) 03/31/19 04/01/19 04/01/19 20:24 04:35 04:35 WBC 4.8 RBC 4.33 L Hgb 12.2 L Hct 36.6 L MCV 85 MCH 28.1 MCHC 33.3 RDW 14.5 H Plt Count 174 Seg Neutrophils % 38.9 L Lymphocytes % 46.2 H Monocytes % 8.0 Eosinophils % 5.7 Basophils % 1.2 Absolute Neutrophils 1.9 Absolute Lymphocytes 2.2 Absolute Monocytes 0.4 Absolute Eosinophils 0.3 Absolute Basophils 0.1 Sodium 140.6 Potassium 5.3 H Chloride 112 H Carbon Dioxide 19 L Anion Gap 10 BUN 38 H Creatinine 1.26 H Est GFR ( Amer) > 60 Est GFR (Non-Af Amer) 58 L Glucose 306 H Lactic Acid 1.6 Calcium 8.8 Magnesium Total Bilirubin 0.3 AST 19 ALT 21 Alkaline Phosphatase 98 Total Protein 6.1 L Albumin 3.2 L Urine Color Urine Appearance Urine pH Ur Specific [place] Urine Protein Urine Glucose (UA) Urine Ketones Urine Blood Urine Nitrite Ur Leukocyte Esterase Urine WBC (Auto) Urine RBC (Auto) 04/01/19 10:05 WBC RBC Hgb Hct MCV MCH MCHC RDW Plt Count Seg Neutrophils % Lymphocytes % Monocytes % Eosinophils % Basophils % Absolute Neutrophils Absolute Lymphocytes Absolute Monocytes Absolute Eosinophils Absolute Basophils Sodium Potassium Chloride Carbon Dioxide Anion Gap BUN Creatinine Est GFR ( Amer) Est GFR (Non-Af Amer) Glucose Lactic Acid Calcium Magnesium Total Bilirubin AST ALT Alkaline Phosphatase Total Protein Albumin Urine Color STRAW Urine Appearance CLEAR Urine pH 5.0 Ur Specific [place] 1.013 Urine Protein NEGATIVE Urine Glucose (UA) >=500 H Urine Ketones NEGATIVE Urine Blood NEGATIVE Urine Nitrite NEGATIVE Ur Leukocyte Esterase NEGATIVE Urine WBC (Auto) 0 Urine RBC (Auto) 0 03/31/19 03/31/19 03/31/19 18:50 18:50 22:00 Creatine Kinase 90 CK-MB (CK-2) 1.23 Troponin I < 0.012 < 0.012 NT-Pro-B Natriuret Pep 52 04/01/19 04/01/19 04/01/19 04:35 04:35 10:15 Creatine Kinase 72 80 CK-MB (CK-2) 1.07 Troponin I < 0.012 NT-Pro-B Natriuret Pep 04/01/19 10:50 Creatine Kinase CK-MB (CK-2) 1.07 Troponin I < 0.012 NT-Pro-B Natriuret Pep 28 Impressions: Chest X-Ray 03/31/19 00:00 IMPRESSION: No acute disease. copyright 2010 [employer]- All Rights Reserved Head CT 03/31/19 20:21 IMPRESSION: No acute intracranial abnormality. Mild chronic microvascular ischemic change. TECHNICAL DOCUMENTATION: Quality ID # 436: Final reports with documentation of one or more dose reduction techniques (e.g., Automated exposure control, adjustment of the mA and/or kV according to patient size, use of iterative reconstruction technique) copyright 2011 [employer]- All Rights Reserved Assessment & Plan - Diagnosis (1) Acute kidney injury Is this a current diagnosis for this admission?: Yes Plan: Start the patient on IV fluid hold the lisinopril (2) Dehydration Is this a current diagnosis for this admission?: Yes Plan: The patient on IV fluid (3) Hypotension Qualifiers: Hypotension type: other hypotension type Qualified Code(s): I95.89 - Other hypotension Is this a current diagnosis for this admission?: Yes Plan: The above conditions currently all feel better hold the blood pressure medications (4) COPD (chronic obstructive pulmonary disease) Qualifiers: COPD type: unspecified COPD Qualified Code(s): J44.9 - Chronic obstructive pulmonary disease, unspecified Is this a current diagnosis for this admission?: Yes Plan: continue to current medications (5) Coronary artery disease Qualifiers: Coronary Disease-Associated Artery/Lesion type: unspecified vessel or lesion type Is this a current diagnosis for this admission?: Yes Plan: Patient have a recently a stress test and echo done we will get the medical records (6) Dizziness Is this a current diagnosis for this admission?: Yes Plan: Dehydration and hypertension's currently all resolved CT of the head is all negative (7) Sleep apnea syndrome Qualifiers: Is this a current diagnosis for this admission?: Yes (8) Type 2 diabetes mellitus Qualifiers: Diabetes mellitus fdc insulin 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 Diabetes mellitus complication status: with unspecified complications Qualified Code(s): E11.8 - Type 2 diabetes mellitus with unspecified complications; Z79.4 - [facility] (current) use of insulin Is this a current diagnosis for this admission?: Yes Plan: Continues to current medications - Time Time Spent: 30 to 50 Minutes Medications reviewed and adjusted accordingly: Yes Anticipated discharge: Home Within: Other - Inpatient Certification Based on my medical assessment, after consideration of the patient's comorbidities, presenting symptoms, or acuity I expect that the services needed warrant INPATIENT care.: Yes I certify that my determination is in accordance with my understanding of Medicare's requirements for reasonable and necessary INPATIENT services [42 CFR 412.3e].: Yes Medical Necessity: Significant Comorbidiites Make Outpatient Treatment Too Risky, Need For IV Fluids Post Hospital Care: D/C Medical Front Desk Coordinator Documentation - Plan Summary Plan Summary: Discussed with the patient and the family on the ER regarding the patient's current conditions
[2019-04-01 17:48] LABS: CREATINE KINASE MB 0.81 ng/mL (<4.55)
[2019-04-01 18:15] LABS: TROPONIN I < 0.012 ng/mL
[2019-04-01] MEDS: GABAPENTIN 300 MG CAPSULE PO SCH (21:53)
[2019-04-01] MEDS: METOPROLOL TARTRATE 25 MG TABLET PO SCH (21:53)
[2019-04-01] MEDS: CETIRIZINE 5 MG TABLET PO SCH (21:53)
[2019-04-01] MEDS ORDERED: [UNRECOGNIZED DRUG - OTHER] SUBCUT SCH (22:00)
[2019-04-01] MEDS ORDERED: INSULIN GLARGINE,HUM.REC.ANLOG 1,000 UNIT/10 ML VIAL SUBCUT SCH (22:00)
[2019-04-01] MEDS ORDERED: INSULIN GLARGINE HUM REC ANLOG 80 UNIT SUBCUT SCH (22:00)
[2019-04-02] MEDS: PANTOPRAZOLE SODIUM 40 MG TABLET.DR PO SCH (05:25)
[2019-04-02 05:36] LABS: ABSOLUTE BASOPHILS # (AUTO) 0.1 10^3/uL (0.0-0.2); ABSOLUTE EOSINOPHILS # (AUTO) 0.3 10^3/uL (0.0-0.6); ABSOLUTE LYMPHOCYTES (AUTO) 2.2 10^3/uL (0.5-4.7); ABSOLUTE MONOCYTES (AUTO) 0.5 10^3/uL (0.1-1.4); ABSOLUTE NEUT (AUTO) 2.8 10^3/uL (1.7-8.2); BASOPHILS % (AUTO) 1.1 % (0-2); EOSINOPHILS % (AUTO) 5.2 % (0-6); HEMATOCRIT 38.9 % (37.9-51.0); HEMOGLOBIN 13.1 g/dL (13.5-17.0); LYMPHOCYTES % (AUTO) 37.5 % (13-45); MEAN CORPUSCULAR HEMOGLOBIN 27.9 pg (27.0-33.4); MEAN CORPUSCULAR HGB CONC 33.7 g/dL (32.0-36.0); MEAN CORPUSCULAR VOLUME 83 fl (80-97); MONOCYTES % (AUTO) 8.2 % (3-13); PLATELET COUNT 189 10^3/uL (150-450); TOTAL CELLS COUNTED % (AUTO) 100 %; WHITE BLOOD COUNT 5.8 10^3/uL (4.0-10.5)
[2019-04-02 05:50] LABS: ANION GAP 9 (5-19); BLOOD UREA NITROGEN 26 mg/dL (7-20); CALCIUM 8.7 mg/dL (8.4-10.2); CARBON DIOXIDE 22 mmol/L (22-30); CHLORIDE 108 mmol/L (98-107); GLUCOSE 256 mg/dL (75-110); SODIUM 139.1 mmol/L (137-145)
[2019-04-02] MEDS: INSULIN LISPRO 100 UNIT/ML 3 ML VIAL SUBCUT SCH ×4 (08:20→21:41)
[2019-04-02] MEDS: ENOXAPARIN SODIUM INJ 30 MG/0.3 ML DISP.SYRIN SUBCUT SCH (09:26)
[2019-04-02] MEDS: FAMOTIDINE 20 MG TABLET PO SCH ×2 (09:27→21:40)
[2019-04-02] MEDS: GABAPENTIN 300 MG CAPSULE PO SCH ×2 (09:27→21:40)
[2019-04-02] MEDS: METOPROLOL TARTRATE 25 MG TABLET PO SCH ×2 (09:28→21:40)
[2019-04-02] MEDS ORDERED: ISOSORBIDE MONONITRATE 60 MG TAB.ER.24H PO SCH (10:00)
[2019-04-02] MEDS ORDERED: FINASTERIDE 5 MG TABLET PO SCH (10:00)
[2019-04-02] MEDS ORDERED: MONTELUKAST SODIUM 10 MG TABLET PO SCH (10:00)
[2019-04-02] MEDS ORDERED: TAMSULOSIN HCL 0.4 MG CAP.SR.24H PO SCH (10:00)
[2019-04-02] MEDS ORDERED: FLUTICASONE/VILANTEROL 200-25 MCG/DOSE IH SCH (10:00)
[2019-04-02] MEDS ORDERED: ASPIRIN 81 MG TABLET, ENT COATED PO SCH (10:00)
[2019-04-02] MEDS ORDERED: ATORVASTATIN CALCIUM 40 MG TABLET PO SCH (10:00)
[2019-04-02] MEDS ORDERED: (PENDING PHARMACY ID) (Linagliptin [Tradjenta] 5 MG) PO SCH (10:00)
[2019-04-02] MEDS ORDERED: AMLODIPINE BESYLATE 5 MG TABLET PO SCH (10:00)
[2019-04-02] MEDS ORDERED: SITAGLIPTIN PHOSPHATE 50 MG TABLET PO SCH (10:00)
--- NOTE | 2019-04-02 13:33 | PDOC PROGRESS REPORT ---
Subjective Progress Note for:: 04/02/19 Subjective:: Patient is feeling much better Patient's denied any chest pain to than any shortness of the breath Patient's kidney function is all normal Patient is back to the baseline's Reason For Visit: HYPOTENSIVE/DIZZINESS/RENAL FAILURE Physical Exam Vital Signs: Temp Pulse Resp BP Pulse Ox 98.8 F 78 16 174/81 H 96 04/02/19 08:12 04/02/19 10:06 04/02/19 10:06 04/02/19 08:12 04/02/19 10:06 Intake & Output 04/01/19 04/02/19 04/03/19 06:59 06:59 06:59 Intake Total 250 4600 1000 Output Total 4200 Balance 059 704 3981 Weight 86.2 kg 86.4 kg General appearance: PRESENT: no acute distress, well-developed, well-nourished Head exam: PRESENT: atraumatic, normocephalic Eye exam: PRESENT: conjunctiva pink, EOMI, PERRLA. ABSENT: scleral icterus Ear exam: PRESENT: normal external ear exam Mouth exam: PRESENT: moist, tongue midline Neck exam: PRESENT: full ROM. ABSENT: carotid bruit, JVD, lymphadenopathy, thyromegaly Respiratory exam: PRESENT: clear to auscultation raya Cardiovascular exam: PRESENT: RRR. ABSENT: diastolic murmur, rubs, systolic murmur Pulses: PRESENT: normal dorsalis pedis pul, +2 pedal pulses bilateral Vascular exam: PRESENT: normal capillary refill GI/Abdominal exam: PRESENT: normal bowel sounds, soft. ABSENT: distended, guarding, mass, organolmegaly, rebound, tenderness Rectal exam: PRESENT: deferred Extremities exam: ABSENT: pedal edema Musculoskeletal exam: PRESENT: ambulatory Neurological exam: PRESENT: alert, awake, oriented to person, oriented to place, oriented to time, oriented to situation, CN II-XII grossly intact. ABSENT: motor sensory deficit Psychiatric exam: PRESENT: appropriate affect, normal mood. ABSENT: homicidal ideation, suicidal ideation Skin exam: PRESENT: dry, intact, warm. ABSENT: cyanosis, rash Results Laboratory Results: 04/02/19 05:21 04/02/19 05:21 04/02/19 04/02/19 05:21 05:21 WBC 5.8 RBC 4.70 Hgb 13.1 L Hct 38.9 MCV 83 MCH 27.9 MCHC 33.7 RDW 14.0 Plt Count 189 Seg Neutrophils % 48.0 Lymphocytes % 37.5 Monocytes % 8.2 Eosinophils % 5.2 Basophils % 1.1 Absolute Neutrophils 2.8 Absolute Lymphocytes 2.2 Absolute Monocytes 0.5 Absolute Eosinophils 0.3 Absolute Basophils 0.1 Sodium 139.1 Potassium 5.0 Chloride 108 H Carbon Dioxide 22 Anion Gap 9 BUN 26 H Creatinine 0.90 Est GFR ( Amer) > 60 Est GFR (Non-Af Amer) > 60 Glucose 256 H Calcium 8.7 04/01/19 10:05 Clean Catch Midstream Urine Culture - Final Mixed Urogenital [place] 03/31/19 03/31/19 03/31/19 18:50 18:50 22:00 Creatine Kinase 90 CK-MB (CK-2) 1.23 Troponin I < 0.012 < 0.012 NT-Pro-B Natriuret Pep 52 04/01/19 04/01/19 04/01/19 04:35 04:35 10:15 Creatine Kinase 72 80 CK-MB (CK-2) 1.07 Troponin I < 0.012 NT-Pro-B Natriuret Pep 04/01/19 04/01/19 04/01/19 10:50 16:40 16:40 Creatine Kinase 77 CK-MB (CK-2) 1.07 0.81 Troponin I < 0.012 < 0.012 NT-Pro-B Natriuret Pep 28 Impressions: Chest X-Ray 03/31/19 00:00 IMPRESSION: No acute disease. copyright 2011 [employer]- All Rights Reserved Head CT 03/31/19 20:21 IMPRESSION: No acute intracranial abnormality. Mild chronic microvascular ischemic change. TECHNICAL DOCUMENTATION: Quality ID # 436: Final reports with documentation of one or more dose reduction techniques (e.g., Automated exposure control, adjustment of the mA and/or kV according to patient size, use of iterative reconstruction technique) copyright 2011 [employer]- All Rights Reserved Assessment & Plan - Diagnosis (1) Acute kidney injury Is this a current diagnosis for this admission?: Yes Plan: All resolved (2) Dehydration Is this a current diagnosis for this admission?: Yes Plan: All resolved (3) Hypotension Qualifiers: Hypotension type: other hypotension type Qualified Code(s): I95.89 - Other hypotension Is this a current diagnosis for this admission?: Yes Plan: All resolved (4) COPD (chronic obstructive pulmonary disease) Qualifiers: COPD type: unspecified COPD Qualified Code(s): J44.9 - Chronic obstructive pulmonary disease, unspecified Is this a current diagnosis for this admission?: Yes Plan: continue to current medications (5) Coronary artery disease Qualifiers: Coronary Disease-Associated Artery/Lesion type: unspecified vessel or lesion type Is this a current diagnosis for this admission?: Yes Plan: Patient have a recently a stress test and echo done we will get the medical records (6) Dizziness Is this a current diagnosis for this admission?: Yes Plan: Dehydration's currently all resolved (7) Sleep apnea syndrome Qualifiers: Is this a current diagnosis for this admission?: Yes (8) Type 2 diabetes mellitus Qualifiers: Diabetes mellitus terminal makeup operator insulin use: with terminal makeup operator use Diabetes cesia litus complication status: with unspecified complications Qualified Code(s): E11.8 - Type 2 diabetes mellitus with unspecified complications; Z79.4 - exterminator (current) use of insulin Is this a current diagnosis for this admission?: Yes Plan: Continues to current medications - Time Time Spent with patient: 15-24 minutes Medications reviewed and adjusted accordingly: Yes Anticipated discharge: Home Within: within 24 hours - Plan Summary Plan Summary: If the patient's remained stable and restart all blood pressure medications discharge home tomorrow
[2019-04-02] MEDS: CETIRIZINE 5 MG TABLET PO SCH (21:41)
[2019-04-02] MEDS ORDERED: INSULIN GLARGINE,HUM.REC.ANLOG 1,000 UNIT/10 ML VIAL SUBCUT SCH (22:00)
[2019-04-03 04:55] LABS: ABSOLUTE BASOPHILS # (AUTO) 0.1 10^3/uL (0.0-0.2); ABSOLUTE EOSINOPHILS # (AUTO) 0.2 10^3/uL (0.0-0.6); ABSOLUTE LYMPHOCYTES (AUTO) 1.8 10^3/uL (0.5-4.7); ABSOLUTE MONOCYTES (AUTO) 0.4 10^3/uL (0.1-1.4); ABSOLUTE NEUT (AUTO) 2.4 10^3/uL (1.7-8.2); BASOPHILS % (AUTO) 1.1 % (0-2); EOSINOPHILS % (AUTO) 5.1 % (0-6); HEMATOCRIT 38.7 % (37.9-51.0); LYMPHOCYTES % (AUTO) 36.2 % (13-45); MEAN CORPUSCULAR HEMOGLOBIN 27.8 pg (27.0-33.4); MEAN CORPUSCULAR HGB CONC 33.6 g/dL (32.0-36.0); MEAN CORPUSCULAR VOLUME 83 fl (80-97); MONOCYTES % (AUTO) 8.8 % (3-13); PLATELET COUNT 184 10^3/uL (150-450); RED BLOOD COUNT 4.68 10^6/uL (4.35-5.55); RED CELL DISTRIBUTION WIDTH 14.1 % (11.5-14.0); SEGMENTED NEUTROPHILS % (AUTO) 48.8 % (42-78); TOTAL CELLS COUNTED % (AUTO) 100 %; WHITE BLOOD COUNT 4.9 10^3/uL (4.0-10.5)
[2019-04-03 05:14] LABS: ANION GAP 10 (5-19); BLOOD UREA NITROGEN 21 mg/dL (7-20); CARBON DIOXIDE 21 mmol/L (22-30); CHLORIDE 109 mmol/L (98-107); GLUCOSE 269 mg/dL (75-110); POTASSIUM 4.7 mmol/L (3.6-5.0); SODIUM 139.8 mmol/L (137-145)
[2019-04-03] MEDS: PANTOPRAZOLE SODIUM 40 MG TABLET.DR PO SCH (06:28)
--- NOTE | 2019-04-03 08:45 | PDOC DISCHARGE SUMMARY ---
General - Admit/Disc Date/PCP Admission Date/Primary Care Provider: 03/31/19 20:58 ZAIRE GEIGER MD Discharge Date: 04/03/19 - Discharge Diagnosis (1) Acute kidney injury Is this a current diagnosis for this admission?: Yes Summary: Currently all resolved (2) Dehydration Is this a current diagnosis for this admission?: Yes Summary: Currently all resolved (3) Hypotension Is this a current diagnosis for this admission?: Yes Summary: Resolved (4) COPD (chronic obstructive pulmonary disease) Is this a current diagnosis for this admission?: Yes (5) Coronary artery disease Is this a current diagnosis for this admission?: Yes Summary: Follow-up with the [facility] (6) Dizziness Is this a current diagnosis for this admission?: Yes Summary: Due to the dehydration's and hypertension is currently resolved (7) Sleep apnea syndrome Is this a current diagnosis for this admission?: Yes (8) Type 2 diabetes mellitus Is this a current diagnosis for this admission?: Yes Summary: The patient about diet and compliance with the medications - Additional Information Discharge Diet: Diabetic Discharge Activity: Activity As Tolerated Home Medications: Amlodipine Besylate [Norvasc 5 mg Tablet] 5 mg PO DAILY 01/26/19 Atorvastatin Calcium [Lipitor 40 mg Tablet] 40 mg PO DAILY 01/26/19 Finasteride [Proscar 5 mg Tablet] 5 mg PO DAILY 01/26/19 Insulin Aspart [Novolog Flexpen] 60 unit SUBCUT ACHS 01/26/19 Insulin Glargine,Hum.rec.anlog [Lantus Insulin 100 Unit/mL Insulin Pen] 80 unit SUBCUT QHS 01/26/19 Isosorbide Mononitrate [Imdur 60 mg Tablet.er] 60 mg PO DAILY 01/26/19 Linagliptin [Tradjenta] 5 mg PO DAILY 01/26/19 Metoprolol Tartrate [Lopressor 25 mg Tablet] 25 mg PO Q12 01/26/19 Montelukast Sodium [Singulair 10 mg Tablet] 10 mg PO DAILY 01/26/19 Omeprazole 40 mg PO DAILY 01/26/19 Aspirin [Ecotrin 81 mg EC Tablet] 81 mg PO DAILY 04/01/19 Budesonide/Formoterol Fumarate [Symbicort HFA 160-4.5 mcg Inhaler 6 gm] 2 puff IH Q12 04/01/19 Gabapentin [Neurontin 300 mg Capsule] 300 mg PO Q12 04/01/19 Levocetirizine Dihydrochloride [Xyzal] 5 mg PO QHS 04/01/19 Lisinopril [Prinivil 5 mg Tablet] 5 mg PO DAILY 04/01/19 Tamsulosin HCl [Flomax 0.4 mg Cap.sr] 0.4 mg PO DAILY 04/01/19 History of Present Illness History of Present Illness: TAHIR FOURNIER is a 63 year old male This is a 63-year-old male with a significant medical problems including type 2 diabetes uncontrolled due to the noncompliance history of the hypertension's history of the hyperlipidemia history of the coronary artery disease recently had a stress test and echocardiogram done at [facility] was all stable per patient and multiple other comorbidity and multiple hospital admissions was working outside yesterday for a whole day and patients feel dehydrated came to the emergency department with the patient's blood pressure was running in the lower end with the systolic is around 80 patient was giving IV fluid Patient's creatinine is also go up to 1.87 Patients feel better Patient denied any chest pain to than any shortness of the breath No abdominal pain no nausea no vomiting Hospital Course Hospital Course: This is a 63-year-old male admitted because of the hypertension's dehydration's and acute renal failure Patient was giving the IV fluids Patient CT of the head was negative EKG and cardiac enzyme is all negative Patient's response very well within 24 hours and restart all blood pressure medications Patients walk in the hallway without any problems Patient's kidney function is back to the normal Patient's blood culture is all negative's Patient is back to the baseline's denied any complaints Discussed with the patient's continues to current medications following office in 1 week Patient already seen by the cardiology and on echo and stress test done within the last 2 months discussed wth to the patient's current conditions Physical Exam Vital Signs: Temp Pulse Resp BP Pulse Ox 98.1 F 54 L 16 144/67 H 95 04/03/19 03:44 04/03/19 07:00 04/03/19 03:44 04/03/19 05:16 04/03/19 05:16 Intake & Output 04/02/19 04/03/19 04/04/19 06:59 06:59 06:59 Intake Total 4600 2276 Output Total 4200 Balance 400 2276 Weight 86.4 kg 84.3 kg General appearance: PRESENT: no acute distress, well-developed, well-nourished Head exam: PRESENT: atraumatic, normocephalic Eye exam: PRESENT: conjunctiva pink, EOMI, PERRLA. ABSENT: scleral icterus Ear exam: PRESENT: normal external ear exam Mouth exam: PRESENT: moist, tongue midline Neck exam: PRESENT: full ROM. ABSENT: carotid bruit, JVD, lymphadenopathy, thyromegaly Respiratory exam: PRESENT: clear to auscultation raya Cardiovascular exam: PRESENT: RRR. ABSENT: diastolic murmur, rubs, systolic murmur Pulses: PRESENT: normal dorsalis pedis pul, +2 pedal pulses bilateral Vascular exam: PRESENT: normal capillary refill GI/Abdominal exam: PRESENT: normal bowel sounds, soft. ABSENT: distended, guarding, mass, organolmegaly, rebound, tenderness Rectal exam: PRESENT: deferred Extremities exam: ABSENT: pedal edema Musculoskeletal exam: PRESENT: ambulatory Neurological exam: PRESENT: alert, awake, oriented to person, oriented to place, oriented to time, oriented to situation, CN II-XII grossly intact. ABSENT: motor sensory deficit Psychiatric exam: PRESENT: appropriate affect, normal mood. ABSENT: homicidal ideation, suicidal ideation Skin exam: PRESENT: dry, intact, warm. ABSENT: cyanosis, rash Results Laboratory Results: 04/03/19 04:34 04/03/19 04:34 04/03/19 04/03/19 04:34 04:34 WBC 4.9 RBC 4.68 Hgb 13.0 L Hct 38.7 MCV 83 MCH 27.8 MCHC 33.6 RDW 14.1 H Plt Count 184 Seg Neutrophils % 48.8 Lymphocytes % 36.2 Monocytes % 8.8 Eosinophils % 5.1 Basophils % 1.1 Absolute Neutrophils 2.4 Absolute Lymphocytes 1.8 Absolute Monocytes 0.4 Absolute Eosinophils 0.2 Absolute Basophils 0.1 Sodium 139.8 Potassium 4.7 Chloride 109 H Carbon Dioxide 21 L Anion Gap 10 BUN 21 H Creatinine 0.88 Est GFR ( Amer) > 60 Est GFR (Non-Af Amer) > 60 Glucose 269 H Calcium 9.0 04/01/19 10:05 Clean Catch Midstream Urine Culture - Final Mixed Urogenital Sunni 05/03/31/19 03/31/19 18:50 18:50 22:00 Creatine Kinase 90 CK-MB (CK-2) 1.23 Troponin I < 0.012 < 0.012 NT-Pro-B Natriuret Pep 52 04/01/19 04/01/19 04/01/19 04:35 04:35 10:15 Creatine Kinase 72 80 CK-MB (CK-2) 1.07 Troponin I < 0.012 NT-Pro-B Natriuret Pep 04/01/19 04/01/19 04/01/19 10:50 16:40 16:40 Creatine Kinase 77 CK-MB (CK-2) 1.07 0.81 Troponin I < 0.012 < 0.012 NT-Pro-B Natriuret Pep 28 Impressions: Chest X-Ray 03/31/19 00:00 IMPRESSION: No acute disease. copyright 2010 [employer]- All Rights Reserved Head CT 03/31/19 20:21 IMPRESSION: No acute intracranial abnormality. Mild chronic microvascular ischemic change. TECHNICAL DOCUMENTATION: Quality ID # [id number]: Final reports with documentation of one or more dose reduction techniques (e.g., Automated exposure control, adjustment of the mA and/or kV according to patient size, use of iterative reconstruction technique) copyright 2011 [employer]- All Rights Reserved Qualifiers - * PATIENT BEING DISCHARGED WITH ANY OF THE FOLLOWING DIAGNOSIS: No VTE patient discharged on overlapping Therapy?: Yes Acute Heart Failure Is this a Heart Failure Patient?: No Plan Time Spent: Greater than 30 Minutes - Follow in office 1 week repeat the CBC and Chem-7
[2019-04-03 09:09] VITALS: BP 116/63
[2019-04-03] MEDS ORDERED: LISINOPRIL 5 MG TABLET PO SCH (10:00)
== END 2019-04-03 09:25 | disposition home or self-care (01) | DRG 684 ==
LOC: ER 18:19 → EH 20:58 → 3W 23:50
PROVIDERS: ADMIT Family Medicine; ATTEND Family Medicine
DX: N17.9 Acute kidney failure, unspecified (principal); E86.0 Dehydration; E11.65 Type 2 diabetes mellitus with hyperglycemia; E11.22 Type 2 diabetes mellitus with diabetic chronic kidney disease; N18.9 Chronic kidney disease, unspecified; I12.9 Hypertensive chronic kidney disease with stage 1 through stage 4 chronic kidney disease, or unspecified chronic kidney disease; N40.0 Benign prostatic hyperplasia without lower urinary tract symptoms; I95.9 Hypotension, unspecified; G47.30 Sleep apnea, unspecified; J44.9 Chronic obstructive pulmonary disease, unspecified; E78.5 Hyperlipidemia, unspecified; Z79.4 Long term (current) use of insulin; Z95.5 Presence of coronary angioplasty implant and graft; Z82.49 Family history of ischemic heart disease and other diseases of the circulatory system; Z82.3 Family history of stroke; Z83.3 Family history of diabetes mellitus; Z79.899 Other long term (current) drug therapy; Z91.19 Patient's noncompliance with other medical treatment and regimen
CPT/HCPCS: 36415; 70450; 71045; 80048; 80053; 81001; 82550; 82553; 82962; 83605; 83735; 83880; 84484; 85025; 87040; 87086; 93005; 93010; 99285; J1650; J1815; J3490; J7030

== ENCOUNTER 2019-04-04 16:10 | Emergency (ER) | payer MEDICAID ==
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
[2019-04-04] MEDS ORDERED: ASPIRIN 81 MG TABLET, CHEWABLE PO ONE (16:58)
[2019-04-04] MEDS ORDERED: NORMAL SALINE 500 ML IV ONE ×2 (17:11→18:50)
[2019-04-04 17:28] LABS: ABSOLUTE BASOPHILS # (AUTO) 0.1 10^3/uL (0.0-0.2); ABSOLUTE EOSINOPHILS # (AUTO) 0.3 10^3/uL (0.0-0.6); ABSOLUTE MONOCYTES (AUTO) 0.7 10^3/uL (0.1-1.4); ABSOLUTE NEUT (AUTO) 3.8 10^3/uL (1.7-8.2); BASOPHILS % (AUTO) 1.1 % (0-2); EOSINOPHILS % (AUTO) 3.9 % (0-6); HEMATOCRIT 38.8 % (37.9-51.0); LYMPHOCYTES % (AUTO) 38.5 % (13-45); MEAN CORPUSCULAR HGB CONC 33.5 g/dL (32.0-36.0); MEAN CORPUSCULAR VOLUME 84 fl (80-97); MONOCYTES % (AUTO) 8.3 % (3-13); PLATELET COUNT 237 10^3/uL (150-450); RED BLOOD COUNT 4.65 10^6/uL (4.35-5.55); RED CELL DISTRIBUTION WIDTH 14.6 % (11.5-14.0); SEGMENTED NEUTROPHILS % (AUTO) 48.2 % (42-78); TOTAL CELLS COUNTED % (AUTO) 100 %; WHITE BLOOD COUNT 7.9 10^3/uL (4.0-10.5)
--- NOTE | 2019-04-04 17:48 | RADIOLOGY REPORT (SQ) ---
EXAM DESCRIPTION: CHEST SINGLE VIEW COMPLETED DATE/TIME: 04/04/2019 5:38 pm REASON FOR STUDY: hypotension COMPARISON: 03/31/2019 EXAM PARAMETERS: NUMBER OF VIEWS: One view. TECHNIQUE: Single frontal radiographic view of the chest acquired. RADIATION DOSE: NA LIMITATIONS: None. FINDINGS: LUNGS AND PLEURA: No opacities, masses or pneumothorax. No pleural effusion. MEDIASTINUM AND HILAR STRUCTURES: No masses. Contour normal. HEART AND VASCULAR STRUCTURES: Cardiomegaly. BONES: No acute findings. HARDWARE: None in the chest. OTHER: No other significant finding. IMPRESSION: Cardiomegaly without acute abnormality of the lungs in AP projection. TECHNICAL DOCUMENTATION: JOB ID: [id number] [employer]- All Rights Reserved Reading location - IP/workstation name: [email or web address]
[2019-04-04 17:49] LABS: ALANINE AMINOTRANSFERASE 32 U/L (21-72); ALKALINE PHOSPHATASE 96 U/L (38-126); ANION GAP 12 (5-19); ASPARTATE AMINO TRANSFERASE 32 U/L (17-59); BILIRUBIN,DIRECT 0.4 mg/dL (0.0-0.4); BILIRUBIN,TOTAL 0.5 mg/dL (0.2-1.3); BLOOD UREA NITROGEN 33 mg/dL (7-20); CALCIUM 9.9 mg/dL (8.4-10.2); CARBON DIOXIDE 22 mmol/L (22-30); CHLORIDE 107 mmol/L (98-107); CREATINE KINASE 71 U/L (55-170); GLUCOSE 164 mg/dL (75-110); POTASSIUM 4.5 mmol/L (3.6-5.0); SODIUM 140.8 mmol/L (137-145); TOTAL PROTEIN 7.3 g/dL (6.3-8.2)
[2019-04-04 18:00] LABS: CREATINE KINASE MB 1.41 ng/mL (<4.55)
[2019-04-04 18:05] LABS: TROPONIN I < 0.012 ng/mL
--- NOTE | 2019-04-04 18:26 | EKG REPORT ---
SEVERITY:- NORMAL ECG - SINUS RHYTHM : Confirmed by: Jessi Ortega 04-Apr-2019 18:26:09
[2019-04-04] MEDS ORDERED: ACETAMINOPHEN 325 MG TABLET PO ONE (19:04)
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
[2019-04-04 20:44] VITALS: BP 133/69
== END 2019-04-04 20:46 | disposition home or self-care (01) ==
LOC: ER 16:10
DX: I95.9 Hypotension, unspecified (principal); E86.0 Dehydration; Z87.891 Personal history of nicotine dependence; I25.10 Atherosclerotic heart disease of native coronary artery without angina pectoris; J44.9 Chronic obstructive pulmonary disease, unspecified
CPT/HCPCS: 93005; 99285; 96360; 96361; 36415; 82553; 82550; 85025; 80053; 84484; 71045; 93010; J3490; J7040

== ENCOUNTER → 2019-05-08 | Outpatient (CLI) | payer MEDICAID ==
--- NOTE | 2019-05-08 10:25 | RADIOLOGY REPORT (SQ) ---
EXAM DESCRIPTION: CHEST PA/LATERAL COMPLETED DATE/TIME: 05/08/2019 10:03 am REASON FOR STUDY: EDEMA, ABNORMAL WEIGHT GAIN COMPARISON: 04/04/2019 EXAM PARAMETERS: NUMBER OF VIEWS: two views TECHNIQUE: Digital Frontal and Lateral radiographic views of the chest acquired. RADIATION DOSE: NA LIMITATIONS: none FINDINGS: LUNGS AND PLEURA: No opacities, masses or pneumothorax. No pleural effusion. MEDIASTINUM AND HILAR STRUCTURES: No masses or contour abnormalities. HEART AND VASCULAR STRUCTURES: Heart size is borderline. No pulmonary edema. BONES: No acute findings. HARDWARE: None in the chest. OTHER: No other significant finding. IMPRESSION: Borderline cardiomegaly without pulmonary edema. TECHNICAL DOCUMENTATION: JOB ID: [id number] [employer]- All Rights Reserved Reading location - IP/workstation name: [email or web address]
[2019-05-08 10:31] LABS: ABSOLUTE EOSINOPHILS # (AUTO) 0.3 10^3/uL (0.0-0.6); ABSOLUTE LYMPHOCYTES (AUTO) 2.1 10^3/uL (0.5-4.7); ABSOLUTE MONOCYTES (AUTO) 0.6 10^3/uL (0.1-1.4); ABSOLUTE NEUT (AUTO) 2.8 10^3/uL (1.7-8.2); BASOPHILS % (AUTO) 0.7 % (0-2); EOSINOPHILS % (AUTO) 4.5 % (0-6); HEMATOCRIT 40.1 % (37.9-51.0); HEMOGLOBIN 13.1 g/dL (13.5-17.0); LYMPHOCYTES % (AUTO) 36.5 % (13-45); MEAN CORPUSCULAR HEMOGLOBIN 27.6 pg (27.0-33.4); MEAN CORPUSCULAR HGB CONC 32.8 g/dL (32.0-36.0); MEAN CORPUSCULAR VOLUME 84 fl (80-97); MONOCYTES % (AUTO) 9.7 % (3-13); PLATELET COUNT 230 10^3/uL (150-450); RED BLOOD COUNT 4.75 10^6/uL (4.35-5.55); RED CELL DISTRIBUTION WIDTH 13.9 % (11.5-14.0); SEGMENTED NEUTROPHILS % (AUTO) 48.6 % (42-78); TOTAL CELLS COUNTED % (AUTO) 100 %; WHITE BLOOD COUNT 5.8 10^3/uL (4.0-10.5)
[2019-05-08 10:59] LABS: ALANINE AMINOTRANSFERASE 22 U/L (21-72); ALBUMIN 3.9 g/dL (3.5-5.0); ALKALINE PHOSPHATASE 124 U/L (38-126); ANION GAP 8 (5-19); ASPARTATE AMINO TRANSFERASE 20 U/L (17-59); BILIRUBIN,DIRECT 0.3 mg/dL (0.0-0.4); BILIRUBIN,TOTAL 0.3 mg/dL (0.2-1.3); BLOOD UREA NITROGEN 26 mg/dL (7-20); CARBON DIOXIDE 26 mmol/L (22-30); CHLORIDE 108 mmol/L (98-107); GLUCOSE 128 mg/dL (75-110); POTASSIUM 5.3 mmol/L (3.6-5.0); TOTAL PROTEIN 6.9 g/dL (6.3-8.2)
== END ==
LOC: OD 09:41
PROVIDERS: ATTEND Physician Assistant
DX: R60.9 Edema, unspecified (principal); R63.5 Abnormal weight gain
CPT/HCPCS: 36415; 71046; 80053; 83880; 85025

== ENCOUNTER 2019-06-07 15:32 | Emergency (ER) | payer MEDICAID ==
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
--- NOTE | 2019-06-07 17:07 | RADIOLOGY REPORT (SQ) ---
EXAM DESCRIPTION: FOOT LEFT COMPLETE COMPLETED DATE/TIME: 06/07/2019 4:53 pm REASON FOR STUDY: possible glass fb COMPARISON: None. NUMBER OF VIEWS: Three views. TECHNIQUE: AP, lateral and oblique radiographic images acquired of the left foot. LIMITATIONS: None. FINDINGS: MINERALIZATION: Normal. BONES: Plantar calcaneal bone spur. Otherwise, no fracture or bony abnormality seen. JOINTS: No effusions. SOFT TISSUES: No soft tissue swelling. No foreign body. OTHER: No other significant finding. IMPRESSION: NEGATIVE STUDY OF THE LEFT FOOT. NO RADIOGRAPHIC EVIDENCE OF ACUTE INJURY. TECHNICAL DOCUMENTATION: JOB ID: [id number] [employer]- All Rights Reserved Reading location - IP/workstation name: [id number]
[2019-06-07] MEDS ORDERED: CEPHALEXIN 500 MG CAPSULE PO ONE (19:27)
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
[2019-06-07 19:45] VITALS: BP 151/70
== END 2019-06-07 19:51 | disposition home or self-care (01) ==
LOC: ER 15:32
DX: S92.902B Unspecified fracture of left foot, initial encounter for open fracture (principal); M79.672 Pain in left foot; W25.XXXA Contact with sharp glass, initial encounter; Z87.891 Personal history of nicotine dependence; I25.10 Atherosclerotic heart disease of native coronary artery without angina pectoris; E11.9 Type 2 diabetes mellitus without complications; I10 Essential (primary) hypertension; J44.9 Chronic obstructive pulmonary disease, unspecified
CPT/HCPCS: 99283

== ENCOUNTER 2019-06-19 19:52 | Emergency (ER) | payer MEDICAID ==
[2019-06-19] MEDS ORDERED: ASPIRIN 81 MG TABLET, CHEWABLE ONE (21:03)
[2019-06-19] MEDS ORDERED: ASPIRIN 81 MG TABLET, CHEWABLE PO ONE (21:03)
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
[2019-06-19 21:53] LABS: ABSOLUTE EOSINOPHILS # (AUTO) 0.3 10^3/uL (0.0-0.6); ABSOLUTE LYMPHOCYTES (AUTO) 2.4 10^3/uL (0.5-4.7); ABSOLUTE MONOCYTES (AUTO) 0.5 10^3/uL (0.1-1.4); ABSOLUTE NEUT (AUTO) 2.2 10^3/uL (1.7-8.2); BASOPHILS % (AUTO) 0.9 % (0-2); EOSINOPHILS % (AUTO) 5.4 % (0-6); HEMATOCRIT 42.4 % (37.9-51.0); HEMOGLOBIN 13.9 g/dL (13.5-17.0); LYMPHOCYTES % (AUTO) 43.9 % (13-45); MEAN CORPUSCULAR HEMOGLOBIN 27.8 pg (27.0-33.4); MEAN CORPUSCULAR HGB CONC 32.7 g/dL (32.0-36.0); MEAN CORPUSCULAR VOLUME 85 fl (80-97); MONOCYTES % (AUTO) 8.6 % (3-13); PLATELET COUNT 177 10^3/uL (150-450); RED BLOOD COUNT 4.99 10^6/uL (4.35-5.55); RED CELL DISTRIBUTION WIDTH 13.8 % (11.5-14.0); SEGMENTED NEUTROPHILS % (AUTO) 41.2 % (42-78); TOTAL CELLS COUNTED % (AUTO) 100 %; WHITE BLOOD COUNT 5.4 10^3/uL (4.0-10.5)
[2019-06-19 21:55] LABS: APPEARANCE,URINE CLEAR; BILIRUBIN,URINE NEGATIVE (NEGATIVE); COLOR,URINE COLORLESS; GLUCOSE, URINE >=500 mg/dL (NEGATIVE); KETONES,URINE NEGATIVE (NEGATIVE); LEUKOCYTE ESTERASE,URINE NEGATIVE (NEGATIVE); NITRITE,URINE NEGATIVE (NEGATIVE); PROTEIN,URINE NEGATIVE (NEGATIVE); UROBILINOGEN,URINE NEGATIVE mg/dL (<2.0)
--- NOTE | 2019-06-19 22:05 | RADIOLOGY REPORT (SQ) ---
EXAM DESCRIPTION: XR CHEST 2 VIEWS COMPLETED DATE/TME: 06/19/2019 21:03 CLINICAL HISTORY: 63 years, Male, chest pain and pressure COMPARISON: 05/08/2019 chest NUMBER OF VIEWS: 2 TECHNIQUE: 2 views of the ches8 LIMITATIONS: None. FINDINGS: Cardiomegaly. No pneumothorax. Lungs are clear IMPRESSION: Cardiomegaly. Lungs are clear copyright 2010 [employer]- All Rights Reserved
[2019-06-19 22:10] LABS: ALBUMIN 4.1 g/dL (3.5-5.0); ALKALINE PHOSPHATASE 177 U/L (38-126); ANION GAP 12 (5-19); ASPARTATE AMINO TRANSFERASE 23 U/L (17-59); BILIRUBIN,DIRECT 0.4 mg/dL (0.0-0.4); BILIRUBIN,TOTAL 0.5 mg/dL (0.2-1.3); BLOOD UREA NITROGEN 27 mg/dL (7-20); CALCIUM 9.5 mg/dL (8.4-10.2); CARBON DIOXIDE 19 mmol/L (22-30); CHLORIDE 101 mmol/L (98-107); CREATINE KINASE 99 U/L (55-170); POTASSIUM 5.2 mmol/L (3.6-5.0); TOTAL PROTEIN 7.3 g/dL (6.3-8.2)
[2019-06-19 22:17] LABS: GLUCOSE 613 mg/dL (75-110)
[2019-06-19 22:23] LABS: CREATINE KINASE MB 1.59 ng/mL (<4.55)
[2019-06-19 22:24] LABS: TROPONIN I < 0.012 ng/mL
[2019-06-20] MEDS ORDERED: IPRATROPIUM/ALBUTEROL 0.5-2.5 MG/3 ML AMPUL NEB ONE (01:57)
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
[2019-06-20] MEDS: NORMAL SALINE 1000 ML 1,000 ML IV PRN ×2 (02:20→03:36)
[2019-06-20 02:54] LABS: VENOUS BLOOD HCO3 20.7 mmol/L (20-32); VENOUS BLOOD PCO2 40.7 mmHg (35-63); VENOUS BLOOD PH 7.32 (7.30-7.42)
[2019-06-20 03:23] LABS: NT PRO BNP 84 pg/mL (5-900)
[2019-06-20 03:27] LABS: TROPONIN I < 0.012 ng/mL
[2019-06-20] MEDS ORDERED: INSULIN REG, HUMAN 100 UNIT/ML 3 ML VIAL (PYX) SUBCUT ONE (03:42)
[2019-06-20 05:09] VITALS: BP 182/82
--- NOTE | 2019-06-20 09:26 | EKG REPORT ---
SEVERITY:- NORMAL ECG - SINUS RHYTHM : Confirmed by: Javad Jennings MD 20-Jun-2019 09:25:45
--- NOTE | 2019-06-20 09:27 | EKG REPORT ---
SEVERITY:- OTHERWISE NORMAL ECG - SINUS RHYTHM BORDERLINE LEFT AXIS DEVIATION : Confirmed by: Javad Jennings MD 20-Jun-2019 09:26:38
== END 2019-06-20 05:16 | disposition home or self-care (01) ==
LOC: ER 19:52
DX: R07.89 Other chest pain (principal); J44.9 Chronic obstructive pulmonary disease, unspecified; E11.65 Type 2 diabetes mellitus with hyperglycemia; I25.10 Atherosclerotic heart disease of native coronary artery without angina pectoris; I10 Essential (primary) hypertension; R05 Cough; R06.02 Shortness of breath; Z87.891 Personal history of nicotine dependence; Z95.5 Presence of coronary angioplasty implant and graft; Z87.01 Personal history of pneumonia (recurrent); Z82.49 Family history of ischemic heart disease and other diseases of the circulatory system
CPT/HCPCS: 93005 ×2; 94640; 99285; 96360; 96361; 36415; 82553; 82962; 82550; 83690; 85025; 80053; 81001; 84484; 82803; 83880; 71046; 93010 ×2; J1815; J7030; J7620

== ENCOUNTER 2019-07-22 10:53 | Inpatient (IN) | payer MEDICAID ==
[2019-07-22] MEDS ORDERED: NORMAL SALINE 1000 ML 500 ML IV PRN (11:25)
[2019-07-22] MEDS ORDERED: DEXTROSE 50%-WATER 25 GM/50 ML DISP.SYRIN IV ONE (11:36)
[2019-07-22 11:45] LABS: VENOUS BLOOD BASE EXCESS -4.6 mmol/L; VENOUS BLOOD HCO3 24.4 mmol/L (20-32); VENOUS BLOOD PCO2 62.4 mmHg (35-63); VENOUS BLOOD PH 7.21 (7.30-7.42)
[2019-07-22 11:47] LABS: INTERNATIONAL RATION (INR) 0.92; PROTHROMBIN TIME 12.4 SEC (11.4-15.4)
[2019-07-22] MEDS ORDERED: NORMAL SALINE 1000 ML 1,000 ML IV ONE (12:03)
[2019-07-22 12:09] LABS: ALBUMIN 4.3 g/dL (3.5-5.0); ALKALINE PHOSPHATASE 107 U/L (38-126); ANION GAP 11 (5-19); ASPARTATE AMINO TRANSFERASE 20 U/L (17-59); BILIRUBIN,DIRECT 0.2 mg/dL (0.0-0.4); BILIRUBIN,TOTAL 0.5 mg/dL (0.2-1.3); BLOOD UREA NITROGEN 33 mg/dL (7-20); CALCIUM 10.3 mg/dL (8.4-10.2); CARBON DIOXIDE 23 mmol/L (22-30); CHLORIDE 107 mmol/L (98-107); CREATINE KINASE 54 U/L (55-170); POTASSIUM 5.2 mmol/L (3.6-5.0); TOTAL PROTEIN 7.7 g/dL (6.3-8.2)
[2019-07-22 12:12] LABS: GLUCOSE 58 mg/dL (75-110)
[2019-07-22 12:21] LABS: CREATINE KINASE MB 0.76 ng/mL (<4.55)
[2019-07-22 12:22] LABS: TROPONIN I < 0.012 ng/mL
[2019-07-22] MEDS ORDERED: NALOXONE HCL INJ/PF 0.4 MG/1 ML SDV ONE (12:24)
[2019-07-22] MEDS ORDERED: NALOXONE HCL INJ/PF 0.4 MG/1 ML SDV IV ONE (12:25)
--- NOTE | 2019-07-22 12:28 | RADIOLOGY REPORT (SQ) ---
EXAM DESCRIPTION: CHEST SINGLE VIEW COMPLETED DATE/TIME: 07/22/2019 12:04 pm REASON FOR STUDY: ams COMPARISON: PA and lateral views of the chest from 06/19/2019 EXAM PARAMETERS: NUMBER OF VIEWS: One view. TECHNIQUE: Single frontal radiographic view of the chest acquired. RADIATION DOSE: NA LIMITATIONS: None. FINDINGS: The cardiac silhouette is enlarged. The mediastinal contours are unchanged. The pulmonar y vasculature is within normal limits. There are patchy bibasilar opacities. There is no sizable pl eural effusion or pneumothorax. There is no acute abnormality of the imaged osseous structures. IMPRESSION: Cardiomegaly and patchy bibasilar opacities - correlate with clinical findings to exclud e pneumonia. TECHNICAL DOCUMENTATION: JOB ID: [id number] [employer]- All Rights Reserved Reading location - IP/workstation name: [email or web address]
[2019-07-22 12:45] LABS: ABSOLUTE BASOPHILS # (AUTO) 0.1 10^3/uL (0.0-0.2); ABSOLUTE EOSINOPHILS # (AUTO) 0.2 10^3/uL (0.0-0.6); ABSOLUTE LYMPHOCYTES (AUTO) 1.6 10^3/uL (0.5-4.7); ABSOLUTE NEUT (AUTO) 6.6 10^3/uL (1.7-8.2); BASOPHILS % (AUTO) 0.9 % (0-2); EOSINOPHILS % (AUTO) 2.1 % (0-6); HEMATOCRIT 37.8 % (37.9-51.0); HEMOGLOBIN 12.6 g/dL (13.5-17.0); LYMPHOCYTES % (AUTO) 16.7 % (13-45); MEAN CORPUSCULAR HEMOGLOBIN 27.9 pg (27.0-33.4); MEAN CORPUSCULAR HGB CONC 33.3 g/dL (32.0-36.0); MEAN CORPUSCULAR VOLUME 84 fl (80-97); MONOCYTES % (AUTO) 10.2 % (3-13); PLATELET COUNT 199 10^3/uL (150-450); RED CELL DISTRIBUTION WIDTH 13.9 % (11.5-14.0); SEGMENTED NEUTROPHILS % (AUTO) 70.1 % (42-78); TOTAL CELLS COUNTED % (AUTO) 100 %; WHITE BLOOD COUNT 9.4 10^3/uL (4.0-10.5)
[2019-07-22] MEDS ORDERED: CEFEPIME 2 GM/D5W RTU 2 GM/50 ML RTUPB IV ONE (12:59)
[2019-07-22] MEDS ORDERED: LEVOFLOXACIN 750 MG/D5W RTU 750 MG/150 ML RTUPB IV ONE (13:00)
--- NOTE | 2019-07-22 13:22 | RADIOLOGY REPORT (SQ) ---
EXAM DESCRIPTION: CT HEAD WITHOUT COMPLETED DATE/TIME: 07/22/2019 1:12 pm REASON FOR STUDY: AMS COMPARISON: CT of the head without contrast from 03/31/2019. TECHNIQUE: Axial images acquired through the brain without intravenous contrast. Images reviewed wi th bone, brain and subdural windows. Additional sagittal and coronal reconstructions were generated. Images stored on PACS. All CT scanners at this facility use dose modulation, iterative reconstruction, and/or weight based d osing when appropriate to reduce radiation dose to as low as reasonably achievable (ALARA). [facility]: Dose Right [facility]: CareDose [facility]: Dose Right [facility]: Teradose 4D [facility]: [email or web address] RADIATION DOSE: CT Rad equipment meets quality standard of care and radiation dose reduction techniq ues were employed. CTDIvol: 53.2 mGy. DLP: 1017 mGy-cm. mGy. LIMITATIONS: None. FINDINGS: There is no acute intracranial hemorrhage, vascular territorial infarct, extra-axial fluid collection, mass effect, or midline shift. There is no effacement of the cerebral sulci or basal roberson barachnoid cisterns. The ibarra-white matter differentiation is preserved. The caliber of the ventric les is concordant with the degree of sulcation and unchanged from 03/31/2019. There is partial opacification of the left mastoid air cells. The paranasal sinuses are clear. Ther e is no fracture of the calvarium. The orbits and globes are normal in appearance. IMPRESSION: 1. No acute intracranial abnormality. 2. Partial opacification of the left mastoid air cells. EVIDENCE OF ACUTE STROKE: NO. COMMENT: Quality ID # [id number]: Final reports with documentation of one or more dose reduction techniques (e.g., Automated exposure control, adjustment of the mA and/or kV according to patient size, use of iterative reconstruction technique) TECHNICAL DOCUMENTATION: JOB ID: [id number] [employer]- All Rights Reserved Reading location - IP/workstation name: [email or web address]
--- NOTE | 2019-07-22 13:27 | RADIOLOGY REPORT (SQ) ---
EXAM DESCRIPTION: CT CHEST WITHOUT COMPLETED DATE/TIME: 07/22/2019 1:12 pm REASON FOR STUDY: fall, pain COMPARISON: None. TECHNIQUE: CT scan performed of the chest without intravenous contrast. Images reviewed with lung, soft tissue and bone windows. Reconstructed coronal and sagittal MPR images reviewed. All images st ored on PACS. All CT scanners at this facility use dose modulation, iterative reconstruction, and/or weight based d osing when appropriate to reduce radiation dose to as low as reasonably achievable (ALARA). [facility]: Dose Right [facility]: CareDose [facility]: Dose Right [facility]: Teradose 4D [facility]: [employer] RADIATION DOSE: CT Rad equipment meets quality standard of care and radiation dose reduction techniq ues were employed. CTDIvol: 14.4 mGy. DLP: 509 mGy-cm. mGy. LIMITATIONS: No technical limitations. FINDINGS: LUNGS AND PLEURA: The trachea and main bronchi are patent. There is mild bronchiectasis i n the lower lobes - unchanged from 01/27/2019. The mosaic attenuation of the lung parenchyma is also unchanged and could represent a component of air trapping. There is no consolidation, pleural effusi on or pneumothorax. HILAR AND MEDIASTINAL STRUCTURES: No enlarged mediastinal hilar adenopathy. HEART AND VASCULAR STRUCTURES: No aneurysmal dilatation or intramural hematoma of the thoracic aortic . UPPER ABDOMEN: Cholecystectomy clips in the gallbladder fossa. THYROID AND OTHER SOFT TISSUES: Cardiomegaly and coronary stents. There is no pericardial effusion. BONES: Findings of DISH in the thoracic spine. There is no fracture. HARDWARE: None in the chest. OTHER: No other findings. IMPRESSION: Mosaic attenuation of the lung parenchyma could represent a component of air trapping in the setting of small airway disease. TECHNICAL DOCUMENTATION: JOB ID: [id number] Quality ID # [id number]: Final reports with documentation of one or more dose reduction techniques (e.g., Au tomated exposure control, adjustment of the mA and/or kV according to patient size, use of iterative reconstruction technique) 2010 [employer]- All Rights Reserved Reading location - IP/workstation name: [email or web address]
[2019-07-22] MEDS ORDERED: ONDANSETRON HCL INJ/PF 4 MG/2 ML SDV IV PRN (13:31)
[2019-07-22] MEDS ORDERED: IPRATROPIUM/ALBUTEROL 0.5-2.5 MG/3 ML AMPUL NEB PRN (13:31)
[2019-07-22] MEDS ORDERED: NORMAL SALINE 1000 ML 1,000 ML IV PRN (13:31)
[2019-07-22] MEDS ORDERED: GLUCAGON,HUMAN RECOMB 1 MG INJ IM PRN (13:38)
[2019-07-22] MEDS ORDERED: DEXTROSE 50%-WATER 25 GM/50 ML DISP.SYRIN IV PRN ×2 (13:38)
[2019-07-22] MEDS ORDERED: DEXTROSE 40% GEL 15 GM TUBE PO PRN ×2 (13:38)
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
--- NOTE | 2019-07-22 16:18 | PDOC H&P ---
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 do not want to go to the [place] and also several hospital admissions for the dehydration's history of the gastroparesis history of the chronic kidney disease due to the dehydration's and uncontrolled diabetes and also history of the coronary disease status post stent placement hypertension's hyperlipidemiaCurrently went to the [facility] because of the fall was syncopal type episodes patient had a CT head and other test was done and told the patient has some fracture in the ribs but other than that suggested dehydration and given some IV fluid and discharge it Patient is came to the office with a complaining of very dizzy very unstable gait not feeling well patient's blood pressure was also lower and at this point patient looks like more dehydrated and dizzy feeling called EMS and sent the patient to the emergency department In the emergency department initial CT of the head was negative CT of the chest was possible pneumonia and patient's also found acute renal failure with hyperkalemia Patient's blood sugar was also low Patient's blood pressure is also low he is denied any chest pain but mostly complaining of left-sided chest wall contusion pain denied any short of breath Discussed with the and the bedside to be noncompliance with the elevated blood sugars and uncontrolled other medical conditions lead to multiple complications We will consult the cardiology with the left-sided chest pains and consult nephrology with this recurrent renal failure most likely due to the uncontrolled blood sugars and some kind of insulin resistance he had a CT abdomen pelvis done in the last January for the kidney was all stable Patient also see Dr. Victor in [place] cardiology Past Medical History Cardiac Medical History: Reports: Coronary Artery Disease - CARDIAC STENTS X5, Hyperlipidema, Hypertension Denies: Atrial Fibrillation, Congestive Heart Failure, Myocardial Infarction, Peripheral Vascular Disease, Pulmonary Embolism Pulmonary Medical History: Reports: Asthma, Bronchitis, Chronic Obstructive Pulmonary Disease (COPD), Pneumonia, Sleep Apnea Denies: Respiratory Failure, Tuberculosis Neurological Medical History: Denies: Seizures Endocrine Medical History: Reports: Diabetes Mellitus Type 2 Denies: Hyperthyroidism, Hypothyroidism Renal/ Medical History: Reports: Chronic Kidney Disease Denies: End Stage Renal Disease Malignancy Medical History: Denies: Leukemia, Lung Cancer GI Medical History: Reports: Gastroesophageal Reflux Disease, Hiatal Hernia Denies: Crohn's Disease Musculoskeltal Medical History: Reports: Arthritis - bursitis left shoulder, back bone spurs Denies: Fibromyalgia Psychiatric Medical History: Denies: Bipolar Disorder, Dementia, Depression, Post Traumatic Stress Disorder Hematology: Reports: Anemia Infectious Medical History: Denies: HIV Past Surgical History Past Surgical History: Reports: Cardiac Catheterization - 5 stents, Cholecystectomy, Coronary Stent, Orthopedic Surgery - right leg, back surgery, Tonsillectomy Denies: Appendectomy, Colostomy, Coronary Artery Bypass Graft, Gastric Bypass Surgery, Herniorrhaphy, Pacemaker Social History Information Source: Patient Lives with: Family Smoking Status: Former Smoker Frequency of Alcohol Use: Rare Hx Recreational Drug Use: No Drugs: None Hx Prescription Drug Abuse: No Family History Family History: Arthritis, CAD, CVA, DM, Hyperlipidemia, Hypertension, Malignancy Parental Family History Reviewed: Yes Children Family History Reviewed: Yes Sibling(s) Family History Reviewed.: Yes Medication/Allergy Home Medications: Albuterol Sulfate [Proair HFA Inhalation Aerosol 8.5 gm MDI] 2 puff IH Q4HP PRN 07/22/19 Amlodipine Besylate [Norvasc 5 mg Tablet] 5 mg PO DAILY 07/22/19 Aspirin [Adult Low Dose Aspirin EC] 81 mg PO DAILY 07/22/19 Atorvastatin Calcium [Lipitor 40 mg Tablet] 40 mg PO QHS 07/22/19 Fenofibrate Nanocrystallized [Tricor 145 mg Tablet] 145 mg PO DAILY 07/22/19 Finasteride [Proscar 5 mg Tablet] 5 mg PO DAILY 07/22/19 Gabapentin [Neurontin 300 mg Capsule] 300 mg PO Q12 07/22/19 Hydrocodone/Acetaminophen [Benavides 5-325 Tablet] 1 tab PO Q4HP PRN 07/22/19 Ibuprofen [Motrin 800 mg Tablet] 800 mg PO Q8HP PRN 07/22/19 Insulin Aspart [Novolog Flexpen] 70 units SQ QID 07/22/19 Insulin Glargine,Hum.rec.anlog [Lantus Insulin 100 Unit/1 ml 10 ml] 95 units SQ QPM 07/22/19 Isosorbide Mononitrate [Imdur 60 mg Tablet.er] 60 mg PO DAILY 07/22/19 Levocetirizine Dihydrochloride [Xyzal] 5 mg PO QPM 07/22/19 Linagliptin [Tradjenta] 5 mg PO DAILY 07/22/19 Lisinopril [Zestril] 5 mg PO DAILY 07/22/19 Meclizine HCl [Antivert 12.5 mg Tablet] 12.5 mg PO BID 07/22/19 Metoprolol Tartrate [Lopressor 25 mg Tablet] 25 mg PO BID 07/22/19 Montelukast Sodium [Singulair 10 mg Tablet] 10 mg PO QPM 07/22/19 Nitroglycerin [Nitrostat 0.4 mg (1/150 Gr) Tabs 25/Bottle] 0.4 mg SL Q5MP PRN 07/22/19 Omeprazole 40 mg PO DAILY 07/22/19 Tamsulosin HCl [Flomax 0.4 mg Cap.sr] 0.4 mg PO QPM 07/22/19 Allergies/Adverse Reactions: clopidogrel bisulfate [From Plavix] Adverse Reaction (Severe, Verified 06/19/19 21:02) bleeding from ear/NOSE Review of Systems Constitutional: PRESENT: fatigue, weakness Cardiovascular: PRESENT: chest pain Respiratory: PRESENT: cough Gastrointestinal: PRESENT: diarrhea, nausea Neurological: PRESENT: dizziness Physical Exam Vital Signs: Temp Pulse Resp BP Pulse Ox 98.1 F 59 L 13 108/65 98 07/22/19 11:00 07/22/19 11:00 07/22/19 15:00 07/22/19 15:00 07/22/19 15:00 Intake & Output 07/21/19 07/22/19 07/23/19 06:59 06:59 06:59 Intake Total 1700 Balance 1700 Weight 85.275 kg Physical Exam: Very unsteady gait General appearance: PRESENT: no acute distress, well-developed, well-nourished Head exam: PRESENT: atraumatic, normocephalic Eye exam: PRESENT: conjunctiva pink, EOMI, PERRLA. ABSENT: scleral icterus Ear exam: PRESENT: normal external ear exam Mouth exam: PRESENT: moist, tongue midline Neck exam: PRESENT: full ROM. ABSENT: carotid bruit, JVD, lymphadenopathy, thyromegaly Respiratory exam: PRESENT: clear to auscultation raya Cardiovascular exam: PRESENT: RRR. ABSENT: diastolic murmur, rubs, systolic murmur Pulses: PRESENT: normal dorsalis pedis pul, +2 pedal pulses bilateral Vascular exam: PRESENT: normal capillary refill GI/Abdominal exam: PRESENT: normal bowel sounds, soft. ABSENT: distended, guarding, mass, organolmegaly, rebound, tenderness Rectal exam: PRESENT: deferred Neurological exam: PRESENT: alert, awake, oriented to person, oriented to place, oriented to time, oriented to situation, reflexes normal, abnormal gait, CN II- XII grossly intact. ABSENT: motor sensory deficit Psychiatric exam: PRESENT: appropriate affect, normal mood. ABSENT: homicidal ideation, suicidal ideation Skin exam: PRESENT: dry, intact, warm. ABSENT: cyanosis, rash Results Laboratory Results: 07/22/19 12:30 07/22/19 11:18 07/22/19 07/22/19 07/22/19 11:18 11:18 11:18 WBC RBC Hgb Hct MCV MCH MCHC RDW Plt Count Seg Neutrophils % VBG pH 7.21 L VBG pCO2 62.4 VBG HCO3 24.4 VBG Base Excess -4.6 Sodium 141.4 Potassium 5.2 H Chloride 107 Carbon Dioxide 23 Anion Gap 11 BUN 33 H Creatinine 1.94 H Est GFR ( Amer) 42 L Glucose 58 L Lactic Acid 2.1 Calcium 10.3 H Total Bilirubin 0.5 AST 20 Alkaline Phosphatase 107 Total Protein 7.7 Albumin 4.3 TSH 07/22/19 07/22/19 11:18 12:30 WBC 9.4 RBC 4.50 Hgb 12.6 L Hct 37.8 L MCV 84 MCH 27.9 MCHC 33.3 RDW 13.9 Plt Count 199 Seg Neutrophils % 70.1 VBG pH VBG pCO2 VBG HCO3 VBG Base Excess Sodium Potassium Chloride Carbon Dioxide Anion Gap BUN Creatinine Est GFR ( Amer) Glucose Lactic Acid Calcium Total Bilirubin AST Alkaline Phosphatase Total Protein Albumin TSH 7.13 H 07/22/19 07/22/19 07/22/19 11:18 11:18 13:56 Creatine Kinase 54 L CK-MB (CK-2) 0.76 Troponin I < 0.012 < 0.012 Impressions: Chest X-Ray 09/11/19 11:26 IMPRESSION: Cardiomegaly and patchy bibasilar opacities - correlate with clinical findings to exclude pneumonia. Head CT 07/22/19 12:03 IMPRESSION: 1. No acute intracranial abnormality. 2. Partial opacification of the left mastoid air cells. EVIDENCE OF ACUTE STROKE: NO. Chest CT 07/22/19 12:25 IMPRESSION: Mosaic attenuation of the lung parenchyma could represent a component of air trapping in the setting of small airway disease. Assessment & Plan - Diagnosis (1) Acute kidney injury Is this a current diagnosis for this admission?: Yes Plan: Most likely due to the dehydration's Continues to IV fluid (2) Hypotension Qualifiers: Hypotension type: unspecified hypotension type Qualified Code(s): I95.9 - Hypotension, unspecified Is this a current diagnosis for this admission?: Yes Plan: Due to the above conditions Likely patient has some gastroparesis (3) Pneumonia Qualifiers: Pneumonia type: due to unspecified organism Laterality: unspecified la terality Lung location: unspecified part of lung Qualified Code(s): J18.9 - Pneumonia, unspecified organism Is this a current diagnosis for this admission?: Yes Plan: Start the patient on IV antibiotic (4) COPD (chronic obstructive pulmonary disease) Qualifiers: COPD type: unspecified COPD Qualified Code(s): J44.9 - Chronic obstructive pulmonary disease, unspecified Is this a current diagnosis for this admission?: Yes Plan: Continues to PRN nebulizer treatments (5) Chest pain Qualifiers: Chest pain type: unspecified Qualified Code(s): R07.9 - Chest pain, unspecified Is this a current diagnosis for this admission?: Yes Plan: We will do the serial cardiac enzyme EKG consult the cardiology most likely chest wall pain (6) Coronary artery disease Qualifiers: Coronary Disease-Associated Artery/Lesion type: [place] artery Is this a current diagnosis for this admission?: Yes Plan: Consult the cardiology (7) Dehydration Is this a current diagnosis for this admission?: Yes Plan: Continues to IV fluid (8) Hyperglycemia due to type 2 diabetes mellitus Qualifiers: Diabetes mellitus [facility] insulin use: with carton liner use Qualified Code(s): E11.65 - Type 2 diabetes mellitus with hyperglycemia; 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 Is this a current diagnosis for this admission?: Yes Plan: We will continue to sliding scale current insulins (9) Hyperkalemia Is this a current diagnosis for this admission?: Yes Plan: Due to the acute renal failure's continues to monitor (10) Hyperlipidemia Qualifiers: Hyperlipidemia type: unspecified Qualified Code(s): E78.5 - Hyperlipidemia, unspecified Is this a current diagnosis for this admission?: Yes (11) Sleep apnea syndrome Qualifiers: Is this a current diagnosis for this admission?: Yes Plan: She is noncompliance using the CPAP (12) Syncope Qualifiers: Syncope type: unspecified Qualified Code(s): R55 - Syncope and collapse Is this a current diagnosis for this admission?: Yes Plan: Patient's recent carotid Doppler was negative Will get the MRI of the brain Likely due to the dehydration's noncompliance elevated blood sugars - Time Time Spent: 30 to 50 Minutes Medications reviewed and adjusted accordingly: Yes Anticipated discharge: Home Within: Other - Inpatient Certification Based on my medical assessment, after consideration of the patient's comorbidities, presenting symptoms, or acuity I expect that the services needed warrant INPATIENT care.: Yes I certify that my determination is in accordance with my understanding of [facility]'s requirements for reasonable and necessary INPATIENT services [42 CFR 412.3e].: Yes Medical Necessity: Significant Comorbidiites Make Outpatient Treatment Too Risky, Need For IV Fluids, Need for IV Antibiotics 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
[2019-07-22] MEDS: INSULIN LISPRO 100 UNIT/ML 3 ML VIAL SUBCUT SCH ×2 (17:35→22:25)
[2019-07-22] MEDS ORDERED: INSULIN GLARGINE,HUM.REC.ANLOG 1,000 UNIT/10 ML VIAL SUBCUT SCH (18:00)
[2019-07-22] MEDS: MONTELUKAST SODIUM 10 MG TABLET PO SCH (19:13)
--- NOTE | 2019-07-22 19:26 | RADIOLOGY REPORT (SQ) ---
EXAM DESCRIPTION: MRI HEAD WITHOUT COMPLETED DATE/TIME: 07/22/2019 7:16 pm REASON FOR STUDY: diziness COMPARISON: 01/26/2019 TECHNIQUE: Multiplanar imaging includes non-contrasted T1, T2, FLAIR, and diffusion with ADC map seq uences. Images stored on PACS. LIMITATIONS: None. FINDINGS: ANATOMY: No anomalies. Normal vascular flow voids. Pituitary fossa normal. CSF SPACES: Normal in size and contour. No hemorrhage. CEREBRUM: Sulci and gyri normal in size and contour. Normal white matter signal on FLAIR imaging. No evidence of hemorrhage, mass, or extraaxial fluid collection. POSTERIOR FOSSA: No signal alteration. No hemorrhage. No edema, masses or mass effect. Internal lina tory canals, cerebello-pontine angles, mastoids normal. DIFFUSION IMAGING: Negative for acute or sub-acute infarction. ORBITS: No masses. Globes normal. PARANASAL SINUSES: Normal sinuses. There is a left mastoid effusion, however. OTHER: No other significant finding. IMPRESSION: Left mastoid effusion. Correlate for mastoiditis. EVIDENCE OF ACUTE STROKE: NO. TECHNICAL DOCUMENTATION: JOB ID: [id number] [employer]- All Rights Reserved Reading location - IP/workstation name: [email or web address]
[2019-07-22 21:58] LABS: CREATINE KINASE MB 0.86 ng/mL (<4.55)
[2019-07-22 21:59] LABS: TROPONIN I < 0.012 ng/mL
[2019-07-22] MEDS: ATORVASTATIN CALCIUM 40 MG TABLET PO SCH (22:18)
[2019-07-22] MEDS: ACETAMINOPHEN 325 MG TABLET PO PRN (22:18)
[2019-07-22] MEDS: CEFEPIME 1 GM/D5W RTU 1 GM/50 ML RTUPB IV SCH (22:19)
--- NOTE | 2019-07-22 22:20 | EKG REPORT ---
SEVERITY:- NORMAL ECG - SINUS RHYTHM : Confirmed by: Sushma Washington MD 22-Jul-2019 22:19:25
--- NOTE | 2019-07-22 22:45 | PDOC PROGRESS REPORT ---
Subjective Progress Note for:: 07/22/19 Subjective:: Patient admitted with generalized weakness, dizziness. He had a fainting spell few days ago and was admitted to [facility] with negative work-up. He was diagnosed to have hypotension and possible urinary tract infection. A cardiac work-up was not performed. Patient was seen in the office by Dr. Giles today and was noted to be very weak, unsteady and also complained of chest pain. Patient tells me that with the fall few days ago, he had rib x-rays performed which showed some rib fracture on the left side. Patient was admitted for further evaluation and management for generalized weakness and chest pain. Initial cardiac enzymes have been negative Reason For Visit: DIZZINESS, DEHYDRATION, RENAL FAILURE Physical Exam Vital Signs: Temp Pulse Resp BP Pulse Ox 98.5 F 59 L 14 141/79 H 95 07/22/19 20:15 07/22/19 11:00 07/22/19 20:15 07/22/19 20:15 07/22/19 20:15 Intake & Output 07/21/19 07/22/19 07/23/19 06:59 06:59 06:59 Intake Total 1700 Balance 1700 Weight 85.275 kg Exam: GENERAL: well-nourished and in no acute distress. Alert and oriented x3 HEAD: Atraumatic, normocephalic. EYES: SOPHIA, sclera anicteric, conjunctiva are normal. ENT: Moist mucous membranes. No oral ulcerations or bleeding gums noted. No obvious ear, nose or throat abnormalities noted. NECK: supple without lymphadenopathy. Trachea is central. No cervical or axillary lymphadenopathy noted. Carotids are 2+, JVD WNL LUNGS: Breath sounds clear bilaterally. No wheezes rales or rhonchi noted. No significant dullness noted on percussion. CHEST: Palpation of the chest wall shows left-sided significant chest wall tenderness. 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 ABDOMEN: Soft, no significant tenderness appreciated, normoactive bowel sounds. No guarding, no rebound. No rigidity noted . No masses appreciated. EXTREMITIES: Pedal pulses are 1-2+, no calf tenderness noted. No clubbing or cyanosis. negative pedal edema noted NEUROLOGICAL: Focused neurological exam showed no significant neurologic deficit. Normal speech, no focal weakness appreciated. PSYCH: Normal mood, normal affect. Judgment and insight within normal limits. SKIN: No significant ecchymosis, skin is noted to be warm. MUSCULOSKELETAL EXAM: No significant acute joint swelling noted. Results Laboratory Results: 07/22/19 12:30 07/22/19 11:18 07/22/19 07/22/19 07/22/19 11:18 11:18 11:18 WBC RBC Hgb Hct MCV MCH MCHC RDW Plt Count Seg Neutrophils % VBG pH 7.21 L VBG pCO2 62.4 VBG HCO3 24.4 VBG Base Excess -4.6 Sodium 141.4 Potassium 5.2 H Chloride 107 Carbon Dioxide 23 Anion Gap 11 BUN 33 H Creatinine 1.94 H Est GFR ( Amer) 42 L Glucose 58 L Lactic Acid 2.1 Calcium 10.3 H Total Bilirubin 0.5 AST 20 Alkaline Phosphatase 107 Total Protein 7.7 Albumin 4.3 TSH 07/22/19 07/22/19 07/22/19 11:18 12:30 15:48 WBC 9.4 RBC 4.50 Hgb 12.6 L Hct 37.8 L MCV 84 MCH 27.9 MCHC 33.3 RDW 13.9 Plt Count 199 Seg Neutrophils % 70.1 VBG pH VBG pCO2 VBG HCO3 VBG Base Excess Sodium Potassium Chloride Carbon Dioxide Anion Gap BUN Creatinine Est GFR ( Amer) Glucose Lactic Acid 2.6 H Calcium Total Bilirubin AST Alkaline Phosphatase Total Protein Albumin TSH 7.13 H 07/22/19 07/22/19 07/22/19 11:18 11:18 13:56 Creatine Kinase 54 L CK-MB (CK-2) 0.76 Troponin I < 0.012 < 0.012 07/22/19 07/22/19 07/22/19 15:48 21:18 21:18 Creatine Kinase 56 54 L CK-MB (CK-2) Cancelled Troponin I Cancelled 07/22/19 21:18 Creatine Kinase CK-MB (CK-2) 0.86 Troponin I < 0.012 EKG Comments: Sinus rhythm, no acute ST-T wave changes are noted Impressions: Head MRI 07/22/19 00:00 IMPRESSION: Left mastoid effusion. Correlate for mastoiditis. EVIDENCE OF ACUTE STROKE: NO. Chest X-Ray 07/22/19 11:26 IMPRESSION: Cardiomegaly and patchy bibasilar opacities - correlate with clinical findings to exclude pneumonia. Head CT 07/22/19 12:03 IMPRESSION: 1. No acute intracranial abnormality. 2. Partial opacification of the left mastoid air cells. EVIDENCE OF ACUTE STROKE: NO. Chest CT 07/22/19 12:25 IMPRESSION: Mosaic attenuation of the lung parenchyma could represent a component of air trapping in the setting of small airway disease. Assessment & Plan - Diagnosis (1) Hypotension Qualifiers: Hypotension type: unspecified hypotension type Qualified Code(s): I95.9 - Hypotension, unspecified Is this a current diagnosis for this admission?: Yes (2) COPD (chronic obstructive pulmonary disease) Qualifiers: COPD type: unspecified COPD Qualified Code(s): J44.9 - Chronic obstructive pulmonary disease, unspecified Is this a current diagnosis for this admission?: Yes (3) Chest pain Qualifiers: Chest pain type: unspecified Qualified Code(s): R07.9 - Chest pain, un specified Is this a current diagnosis for this admission?: Yes (4) Coronary artery disease Qualifiers: Coronary Disease-Associated Artery/Lesion type: [place] artery Is this a current diagnosis for this admission?: Yes (5) Dehydration Is this a current diagnosis for this admission?: Yes - Notes Notes: Chest pain: This is most likely secondary to chest wall trauma. However agree with the IA rule out protocol due to known history of CAD. Coronary artery disease: So far EKG is negative. Patient does have history of coronary stent placement. COPD: Dyspnea post likely related to that. CT scan and chest x-ray negative for CHF. Will consider a 2D echocardiogram if none has been obtained recently. Acute renal failure: Most likely related to dehydration. Agree with slow IV hydration. 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 Will continue to follow patient. - Time Time with patient: Greater than 35 minutes - More than 50% of the time spent coordinating care, discussing management plans with involved caregivers. Management plans discussed with involved personnels. Medical decision making was of moderate to high complexity, patient's has multiple comorbidities. Medications reviewed and adjusted accordingly: Yes
[2019-07-23 00:55] LABS: URINE AMPHETAMINES SCREEN NEGATIVE; URINE BENZODIAZEPINES SCREEN NEGATIVE; URINE COCAINE SCREEN NEGATIVE; URINE MARIJUANA (THC) SCREEN NEGATIVE; URINE METHADONE SCREEN NEGATIVE; URINE PHENCYCLIDINE SCREEN NEGATIVE
[2019-07-23 00:57] LABS: APPEARANCE,URINE CLEAR; BILIRUBIN,URINE NEGATIVE (NEGATIVE); COLOR,URINE YELLOW; GLUCOSE, URINE 50 mg/dL (NEGATIVE); KETONES,URINE NEGATIVE (NEGATIVE); LEUKOCYTE ESTERASE,URINE NEGATIVE (NEGATIVE); NITRITE,URINE NEGATIVE (NEGATIVE); PROTEIN,URINE 30 mg/dL (NEGATIVE); URINE SPECIFIC GRAVITY 1.021; UROBILINOGEN,URINE NEGATIVE mg/dL (<2.0)
[2019-07-23 01:00] LABS: URINE BARBITURATES SCREEN UNCONFIRMED POSITIVE
[2019-07-23] MEDS ORDERED: LIDOCAINE 5% (700 MG) TRANSDERMAL ADH..PATCH TP ONE (01:15)
[2019-07-23] MEDS ORDERED: LIDOCAINE 5% (700 MG) TRANSDERMAL ADH..PATCH ONE (01:29)
[2019-07-23] MEDS: ACETAMINOPHEN 325 MG TABLET PO PRN ×2 (01:40→06:00)
[2019-07-23 03:08] LABS: ABSOLUTE BASOPHILS # (AUTO) 0.1 10^3/uL (0.0-0.2); ABSOLUTE EOSINOPHILS # (AUTO) 0.1 10^3/uL (0.0-0.6); ABSOLUTE LYMPHOCYTES (AUTO) 1.9 10^3/uL (0.5-4.7); ABSOLUTE MONOCYTES (AUTO) 0.5 10^3/uL (0.1-1.4); ABSOLUTE NEUT (AUTO) 6.3 10^3/uL (1.7-8.2); BASOPHILS % (AUTO) 0.7 % (0-2); EOSINOPHILS % (AUTO) 1.5 % (0-6); HEMATOCRIT 37.6 % (37.9-51.0); HEMOGLOBIN 12.6 g/dL (13.5-17.0); MEAN CORPUSCULAR HEMOGLOBIN 27.8 pg (27.0-33.4); MEAN CORPUSCULAR HGB CONC 33.5 g/dL (32.0-36.0); MEAN CORPUSCULAR VOLUME 83 fl (80-97); PLATELET COUNT 194 10^3/uL (150-450); RED BLOOD COUNT 4.52 10^6/uL (4.35-5.55); SEGMENTED NEUTROPHILS % (AUTO) 70.8 % (42-78); TOTAL CELLS COUNTED % (AUTO) 100 %; WHITE BLOOD COUNT 8.9 10^3/uL (4.0-10.5)
[2019-07-23 03:28] LABS: ALBUMIN 3.6 g/dL (3.5-5.0); ALKALINE PHOSPHATASE 90 U/L (38-126); ANION GAP 9 (5-19); ASPARTATE AMINO TRANSFERASE 16 U/L (17-59); BILIRUBIN,DIRECT 0.1 mg/dL (0.0-0.4); BILIRUBIN,TOTAL 0.4 mg/dL (0.2-1.3); BLOOD UREA NITROGEN 30 mg/dL (7-20); CARBON DIOXIDE 20 mmol/L (22-30); CHLORIDE 109 mmol/L (98-107); GLUCOSE 233 mg/dL (75-110); TOTAL PROTEIN 6.7 g/dL (6.3-8.2)
[2019-07-23 03:33] LABS: POTASSIUM 6.7 mmol/L (3.6-5.0)
[2019-07-23 03:44] LABS: CREATINE KINASE MB 0.63 ng/mL (<4.55)
[2019-07-23 03:46] LABS: TROPONIN I < 0.012 ng/mL
[2019-07-23] MEDS ORDERED: INSULIN REG, HUMAN 100 UNIT/ML 3 ML VIAL (PYX) ONE (04:39)
[2019-07-23] MEDS ORDERED: CALCIUM GLUCONATE 1000 MG/10 ML INJ IV ONE ×2 (04:39→05:00)
[2019-07-23] MEDS ORDERED: DEXTROSE 50%-WATER 25 GM/50 ML DISP.SYRIN IV ONE ×2 (04:40→05:00)
[2019-07-23] MEDS ORDERED: SODIUM POLYSTYRENE SULFONATE 15 GM/60 ML ONE (04:52)
[2019-07-23] MEDS ORDERED: INSULIN REG, HUMAN 100 UNIT/ML 3 ML VIAL SUBCUT ONE (05:00)
[2019-07-23] MEDS ORDERED: SODIUM POLYSTYRENE SULFONATE 15 GM/60 ML PO ONE ×2 (05:00→14:00)
[2019-07-23] MEDS: PANTOPRAZOLE SODIUM 40 MG TABLET.DR PO SCH (06:00)
[2019-07-23] MEDS: INSULIN LISPRO 100 UNIT/ML 3 ML VIAL SUBCUT SCH ×4 (08:29→22:54)
--- NOTE | 2019-07-23 09:05 | PDOC PROGRESS REPORT ---
Subjective Progress Note for:: 07/23/19 Subjective:: Patient is currently doing same still complaining of a left-sided rib pain patient was put on a lidocaine patch still not helping much And used to take a tramadol in the past without any side effect Patient was giving the oxycodone but I think that makes the patient's more confused imbalance so unable to use it Patient's potassium was 6.7 now coming down to 5.9 Patient also given calcium gluconate Get the EKG Seen by the cardiology order the echocardiogram Patient still complaining of a cough Patient's MRI of the head was negative for any acute finding This with the and the bedside regarding the patient's current conditions Reason For Visit: DIZZINESS, DEHYDRATION, RENAL FAILURE Physical Exam Vital Signs: Temp Pulse Resp BP Pulse Ox 98.7 F 85 16 169/71 H 95 07/23/19 07:32 07/23/19 07:32 07/23/19 07:32 07/23/19 07:32 07/23/19 07:32 Intake & Output 07/22/19 07/23/19 07/24/19 06:59 06:59 06:59 Intake Total 1750 Output Total 525 Balance 1225 Weight 85.275 kg General appearance: PRESENT: no acute distress, well-developed, well-nourished Head exam: PRESENT: atraumatic, normocephalic Eye exam: PRESENT: conjunctiva pink, EOMI, PERRLA. ABSENT: scleral icterus Ear exam: PRESENT: normal external ear exam Mouth exam: PRESENT: moist, tongue midline Neck exam: PRESENT: full ROM. ABSENT: carotid bruit, JVD, lymphadenopathy, thyromegaly Respiratory exam: PRESENT: chest wall tenderness, clear to auscultation raya Additional comments: Left side of the rib cage area the tenderness Cardiovascular exam: PRESENT: RRR. ABSENT: diastolic murmur, rubs, systolic murmur Pulses: PRESENT: normal dorsalis pedis pul, +2 pedal pulses bilateral Vascular exam: PRESENT: normal capillary refill GI/Abdominal exam: PRESENT: normal bowel sounds, soft. ABSENT: distended, guarding, mass, organolmegaly, rebound, tenderness Rectal exam: PRESENT: deferred Musculoskeletal exam: PRESENT: ambulatory Neurological exam: PRESENT: alert, awake, oriented to person, oriented to place, oriented to time, oriented to situation, CN II-XII grossly intact. ABSENT: motor sensory deficit Psychiatric exam: PRESENT: appropriate affect, normal mood. ABSENT: homicidal ideation, suicidal ideation Skin exam: PRESENT: dry, intact, warm. ABSENT: cyanosis, rash Results Laboratory Results: 07/23/19 02:59 07/23/19 06:35 07/22/19 07/22/19 07/22/19 11:18 11:18 11:18 WBC RBC Hgb Hct MCV MCH MCHC RDW Plt Count Seg Neutrophils % VBG pH 7.21 L VBG pCO2 62.4 VBG HCO3 24.4 VBG Base Excess -4.6 Sodium 141.4 Potassium 5.2 H Chloride 107 Carbon Dioxide 23 Anion Gap 11 BUN 33 H Creatinine 1.94 H Est GFR ( Amer) 42 L Glucose 58 L Lactic Acid 2.1 Calcium 10.3 H Magnesium Total Bilirubin 0.5 AST 20 Alkaline Phosphatase 107 Total Protein 7.7 Albumin 4.3 Lipase TSH Urine Color Urine Appearance Urine pH Ur Specific [place] Urine Protein Urine Glucose (UA) Urine Ketones Urine Blood Urine Nitrite Ur Leukocyte Esterase Urine WBC (Auto) Urine RBC (Auto) 07/22/19 07/22/19 07/22/19 11:18 12:30 15:48 WBC 9.4 RBC 4.50 Hgb 12.6 L Hct 37.8 L MCV 84 MCH 27.9 MCHC 33.3 RDW 13.9 Plt Count 199 Seg Neutrophils % 70.1 VBG pH VBG pCO2 VBG HCO3 VBG Base Excess Sodium Potassium Chloride Carbon Dioxide Anion Gap BUN Creatinine Est GFR ( Amer) Glucose Lactic Acid 2.6 H Calcium Magnesium Total Bilirubin AST Alkaline Phosphatase Total Protein Albumin Lipase TSH 7.13 H Urine Color Urine Appearance Urine pH Ur Specific [place] Urine Protein Urine Glucose (UA) Urine Ketones Urine Blood Urine Nitrite Ur Leukocyte Esterase Urine WBC (Auto) Urine RBC (Auto) 07/23/19 07/23/19 07/23/19 00:05 02:59 02:59 WBC 8.9 RBC 4.52 Hgb 12.6 L Hct 37.6 L MCV 83 MCH 27.8 MCHC 33.5 RDW 14.0 Plt Count 194 Seg Neutrophils % 70.8 VBG pH VBG pCO2 VBG HCO3 VBG Base Excess Sodium 137.6 Potassium 6.7 H* D Chloride 109 H Carbon Dioxide 20 L Anion Gap 9 BUN 30 H Creatinine 1.47 H Est GFR ( Amer) 58 L Glucose 233 H Lactic Acid Calcium 9.0 Magnesium 1.4 L Total Bilirubin 0.4 AST 16 L Alkaline Phosphatase 90 Total Protein 6.7 Albumin 3.6 Lipase 54.6 TSH Urine Color YELLOW Urine Appearance CLEAR Urine pH 5.0 Ur Specific [place] 1.021 Urine Protein 30 H Urine Glucose (UA) 50 H Urine Ketones NEGATIVE Urine Blood NEGATIVE Urine Nitrite NEGATIVE Ur Leukocyte Esterase NEGATIVE Urine WBC (Auto) 2 Urine RBC (Auto) 2 07/23/19 07/23/19 03:58 06:35 WBC RBC Hgb Hct MCV MCH MCHC RDW Plt Count Seg Neutrophils % VBG pH VBG pCO2 VBG HCO3 VBG Base Excess Sodium Potassium 6.4 H* 5.9 H Chloride Carbon Dioxide Anion Gap BUN Creatinine Est GFR ( Amer) Glucose Lactic Acid Calcium Magnesium Total Bilirubin AST Alkaline Phosphatase Total Protein Albumin Lipase TSH Urine Color Urine Appearance Urine pH Ur Specific [place] Urine Protein Urine Glucose (UA) Urine Ketones Urine Blood Urine Nitrite Ur Leukocyte Esterase Urine WBC (Auto) Urine RBC (Auto) 07/22/19 07/22/19 07/22/19 11:18 11:18 13:56 Creatine Kinase 54 L CK-MB (CK-2) 0.76 Troponin I < 0.012 < 0.012 NT-Pro-B Natriuret Pep 07/22/19 07/22/19 07/22/19 15:48 21:18 21:18 Creatine Kinase 56 54 L CK-MB (CK-2) Cancelled Troponin I Cancelled NT-Pro-B Natriuret Pep 07/22/19 07/23/19 07/23/19 21:18 02:59 02:59 Creatine Kinase 46 L CK-MB (CK-2) 0.86 0.63 Troponin I < 0.012 < 0.012 NT-Pro-B Natriuret Pep 07/23/19 02:59 Creatine Kinase CK-MB (CK-2) Troponin I NT-Pro-B Natriuret Pep 95 Impressions: Head MRI 07/22/19 00:00 IMPRESSION: Left mastoid effusion. Correlate for mastoiditis. EVIDENCE OF ACUTE STROKE: NO. Chest X-Ray 07/22/19 11:26 IMPRESSION: Cardiomegaly and patchy bibasilar opacities - correlate with clinical findings to exclude pneumonia. Head CT 07/22/19 12:03 IMPRESSION: 1. No acute intracranial abnormality. 2. Partial opacification of the left mastoid air cells. EVIDENCE OF ACUTE STROKE: NO. Chest CT 07/22/19 12:25 IMPRESSION: Mosaic attenuation of the lung parenchyma could represent a component of air trapping in the setting of small airway disease. Assessment & Plan - Diagnosis (1) Acute kidney injury Is this a current diagnosis for this admission?: Yes Plan: Changed IV fluid to one half normal saline's will wait for the nephrology consult (2) Hypotension Qualifiers: Hypotension type: unspecified hypotension type Qualified Code(s): I95.9 - Hypotension, unspecified Is this a current diagnosis for this admission?: Yes Plan: Currently all resolved (3) Pneumonia Qualifiers: Pneumonia type: due to unspecified organism Laterality: unspecified laterality Lung location: unspecified part of lung Qualified Code(s): J18.9 - Pneumonia, unspecified organism Is this a current diagnosis for this admission?: Yes Plan: Start the patient on IV antibiotic (4) COPD (chronic obstructive pulmonary disease) Qualifiers: COPD type: unspecified COPD Qualified Code(s): J44.9 - Chronic obstructive pulmonary disease, unspecified Is this a current diagnosis for this admission?: Yes Plan: Continues to PRN nebulizer treatments (5) Chest pain Qualifiers: Chest pain type: unspecified Qualified Code(s): R07.9 - Chest pain, unspecified Is this a current diagnosis for this admission?: Yes Plan: Most likely coming from the chest wall from the rib fracture continues to lidocaine patch we will try the tramadol follow with the cardiology (6) Coronary artery disease Qualifiers: Coronary Disease-Associated Artery/Lesion type: [place] artery Is this a current diagnosis for this admission?: Yes Plan: Consult the cardiology (7) Dehydration Is this a current diagnosis for this admission?: Yes Plan: Continues to IV fluid (8) Hyperglycemia due to type 2 diabetes mellitus Qualifiers: Diabetes mellitus terminal manager insulin use: with penitentiary use Qualified Code(s): E11.65 - Type 2 diabetes mellitus with hyperglycemia; Z79.4 - USP (current) use of insulin Is this a current diagnosis for this admission?: Yes Plan: We will continue to sliding scale current insulins (9) Hyperkalemia Is this a current diagnosis for this admission?: Yes Plan: Low potassium diet No lisinopril Patient already received a Kayexalate We will repeat the potassium again in the 12:00 today We will consult the nephrology (10) Hyperlipidemia Qualifiers: Hyperlipidemia type: unspecified Qualified Code(s): E78.5 - Hyperlipidemia, unspecified Is this a current diagnosis for this admission?: Yes (11) Sleep apnea syndrome Qualifiers: Is this a current diagnosis for this admission?: Yes Plan: She is noncompliance using the CPAP (12) Syncope Qualifiers: Syncope type: unspecified Qualified Code(s): R55 - Syncope and collapse Is this a current diagnosis for this admission?: Yes - Time Time Spent with patient: 25-34 minutes Medications reviewed and adjusted accordingly: Yes Anticipated discharge: SNF, Acute Rehab Within: Other - Plan Summary Plan Summary: Discussed with the and the patient's regarding the patient's current con ditions Discussed with the nursing staff and coordinate application consultant
[2019-07-23] MEDS: CEFEPIME 1 GM/D5W RTU 1 GM/50 ML RTUPB IV SCH ×2 (09:25→22:54)
[2019-07-23] MEDS: 1/2 NORMAL SALINE 1,000 ML IV PRN (09:25)
[2019-07-23] MEDS: SITAGLIPTIN PHOSPHATE 50 MG TABLET PO SCH (09:26)
[2019-07-23] MEDS: ASPIRIN 81 MG TABLET, ENT COATED PO SCH (09:26)
[2019-07-23] MEDS: ISOSORBIDE MONONITRATE 60 MG TAB.ER.24H PO SCH (09:26)
[2019-07-23] MEDS: FINASTERIDE 5 MG TABLET PO SCH (09:26)
[2019-07-23] MEDS: AMLODIPINE BESYLATE 5 MG TABLET PO SCH (09:26)
[2019-07-23] MEDS ORDERED: TRAMADOL HCL 50 MG TABLET PO ONE (09:45)
[2019-07-23] MEDS ORDERED: ENOXAPARIN SODIUM INJ 30 MG/0.3 ML DISP.SYRIN SUBCUT SCH (10:00)
[2019-07-23] MEDS ORDERED: (PENDING PHARMACY ID) (Linagliptin [Tradjenta] 5 MG) PO SCH (10:00)
[2019-07-23] MEDS ORDERED: LIDOCAINE 5% (700 MG) TRANSDERMAL ADH..PATCH TP SCH (10:00)
[2019-07-23] MEDS ORDERED: LEVOFLOXACIN 500 MG TABLET PO SCH (12:00)
[2019-07-23] MEDS: LEVOFLOXACIN 500 MG/D5W RTU 500 MG/100 ML RTUPB IV SCH (12:01)
--- NOTE | 2019-07-23 12:25 | PDOC CONSULTATION ---
Consultation Consult Date: 07/23/19 Provider Consulted: Bj LOWERY History of Present Illness Admission Date/PCP: 07/22/19 14:00 ZAIRE GILES MD History of Present Illness: TAHIR FOURNIER is a 63 year old male with a significant history of type 2 diabetes on high dose insulin, noncompliance, recent A1c is 11.9, history of AKIs due to dehydration. Has had several hospital admissions for the dehydration related to gastroparesis, history of the chronic kidney disease due to uncontrolled diabetes, coronary disease status post stent placement, hypertension, hyperlipidemia. Patient was seen at Dr. Giles's office a couple days ago. He was complaining of being dizzy with an unstable gait and not feeling well. In the office he was found to have a low blood pressure. EMS was called and he was sent to the emergency department In the emergency department initial CT of the head was negative, CT of the chest was possible pneumonia, labs showed an acute renal failure with hyperkalemia. Patient's blood sugar was also low. Patient's blood pressure is also low. He was stopped on all bp medications, given fluids, kayexelate for the potassium and glucose to elevate his blood sugar. Cardiology was consulted for left-sided chest pain and is currently ruling out an WI. This morning the bp has improved and he was restarted on amlodipine. The potassium was still elevated and he was given kayexelate. Recheck for his potassium is at 1200. He is still receiving fluids at a rate of 60mL an hour. Currently denies SOB, n/v/d/c. He does still have the chest pain on the left side where he has broken ribs. Other things to note. Recently seen in [facility] last week because of the fall due to a syncopal episode. Patient had a CT head and other test. Was told he has fractures in the ribs. Patient also see Dr. Victor in [place] cardiology Past Medical History Cardiac Medical History: Reports: Coronary Artery Disease - CARDIAC STENTS X5, Hyperlipidemia Denies: Atrial Fibrillation, Myocardial Infarction, Peripheral Vascular Disease, Pulmonary Embolism Pulmonary Medical History: Reports: Asthma, Bronchitis, Chronic Obstructive Pulmonary Disease (COPD), Pneumonia, Sleep Apnea Denies: Respiratory Failure, Tuberculosis Neurological Medical History: Denies: Seizures Endocrine Medical History: Reports: Diabetes Mellitus Type 1, Diabetes Mellitus Type 2 Denies: Hyperthyroidism, Hypothyroidism Renal/ Medical History: Reports: Benign Prostatic Hyperplasia Denies: End Stage Renal Disease Malignancy Medical History: Denies: Leukemia, Lung Cancer GI Medical History: Reports: Gastroesophageal Reflux Disease, Hiatal Hernia Denies: Crohn's Disease Musculoskeltal Medical History: Reports: Arthritis - bursitis left shoulder, back bone spurs Denies: Fibromyalgia, Rheumatoid Arthritis, Systemic Lupus Erythematosus Psychiatric Medical History: Denies: Bipolar Disorder, Dementia, Depression, Post Traumatic Stress Disorder Infectious Medical History: Denies: HIV Past Surgical History Past Surgical History: Reports: Cardiac Catheterization - 5 stents, Cholecystectomy, Coronary Stent, Orthopedic Surgery - right leg, back surgery, Tonsillectomy Denies: Appendectomy, Colostomy, Coronary Artery Bypass Graft, Gastric Bypass Surgery, Herniorrhaphy, Pacemaker Social History Lives with: Family Smoking Status: Former Smoker Frequency of Alcohol Use: None Hx Recreational Drug Use: No Drugs: None Hx Prescription Drug Abuse: No Family History Parental Family History Reviewed: Yes Children Family History Reviewed: Unknown Sibling(s) Family History Reviewed.: Unknown Medication/Allergy Home Medications: Albuterol Sulfate [Proair HFA Inhalation Aerosol 8.5 gm MDI] 2 puff IH Q4HP PRN 07/22/19 Amlodipine Besylate [Norvasc 5 mg Tablet] 5 mg PO DAILY 07/22/19 Aspirin [Adult Low Dose Aspirin EC] 81 mg PO DAILY 07/22/19 Atorvastatin Calcium [Lipitor 40 mg Tablet] 40 mg PO QHS 07/22/19 Fenofibrate Nanocrystallized [Tricor 145 mg Tablet] 145 mg PO DAILY 07/22/19 Finasteride [Proscar 5 mg Tablet] 5 mg PO DAILY 07/22/19 Gabapentin [Neurontin 300 mg Capsule] 300 mg PO Q12 07/22/19 Hydrocodone/Acetaminophen [[place] 5-325 Tablet] 1 tab PO Q4HP PRN 07/22/19 Ibuprofen [Motrin 800 mg Tablet] 800 mg PO Q8HP PRN 07/22/19 Insulin Aspart [Novolog Flexpen] 70 units SQ QID 07/22/19 Insulin Glargine,Hum.rec.anlog [Lantus Insulin 100 Unit/1 ml 10 ml] 95 units SQ QPM 07/22/19 Isosorbide Mononitrate [Imdur 60 mg Tablet.er] 60 mg PO DAILY 07/22/19 Levocetirizine Dihydrochloride [Xyzal] 5 mg PO QPM 07/22/19 Linagliptin [Tradjenta] 5 mg PO DAILY 07/22/19 Lisinopril [Zestril] 5 mg PO DAILY 07/22/19 Meclizine HCl [Antivert 12.5 mg Tablet] 12.5 mg PO BID 07/22/19 Metoprolol Tartrate [Lopressor 25 mg Tablet] 25 mg PO BID 07/22/19 Montelukast Sodium [Singulair 10 mg Tablet] 10 mg PO QPM 07/22/19 Nitroglycerin [Nitrostat 0.4 mg (1/150 Gr) Tabs 25/Bottle] 0.4 mg SL Q5MP PRN 07/22/19 Omeprazole 40 mg PO DAILY 07/22/19 Tamsulosin HCl [Flomax 0.4 mg Cap.sr] 0.4 mg PO QPM 07/22/19 Allergies/Adverse Reactions: clopidogrel bisulfate [From Plavix] Adverse Reaction (Severe, Verified 06/19/19 21:02) bleeding from ear/NOSE Review of Systems Constitutional: PRESENT: weakness. ABSENT: anorexia, chills, fever(s), he adache(s) Eyes: ABSENT: visual disturbances Nose, Mouth, and Throat: ABSENT: headache(s) Cardiovascular: PRESENT: chest pain. ABSENT: dyspnea on exertion, edema, orthropnea, palpitations Respiratory: PRESENT: cough, sputum. ABSENT: dyspnea Gastrointestinal: ABSENT: abdominal pain, constipation, diarrhea, dysphagia, nausea, vomiting Genitourinary: ABSENT: difficulty urinating, dysuria Musculoskeletal: PRESENT: muscle weakness. ABSENT: joint swelling Neurological: PRESENT: weakness. ABSENT: confusion, dizziness, focal weakness Psychiatric: ABSENT: anxiety, depression Physical Exam Vital Signs: Temp Pulse Resp BP Pulse Ox 98.7 F 82 17 169/71 H 95 07/23/19 07:32 07/23/19 08:37 07/23/19 08:37 07/23/19 07:32 07/23/19 08:37 Intake & Output 07/22/19 07/23/19 07/24/19 06:59 06:59 06:59 Intake Total 1750 Output Total 525 Balance 1225 Weight 85.275 kg General appearance: PRESENT: no acute distress, obese, well-developed, well- nourished Mouth exam: PRESENT: dry mucosa, neck supple. ABSENT: moist Neck exam: ABSENT: JVD, tracheal deviation Respiratory exam: PRESENT: rhonchi. ABSENT: accessory muscle use, clear to auscultation raya, crackles, rales, wheezes Cardiovascular exam: PRESENT: RRR, +S1, +S2 GI/Abdominal exam: PRESENT: soft. ABSENT: ascites, distended, guarding, tenderness Extremities exam: ABSENT: pedal edema, tenderness, +1 edema, +2 edema Musculoskeletal exam: PRESENT: normal inspection. ABSENT: tenderness Neurological exam: PRESENT: alert, awake, oriented to person, oriented to place, oriented to time, oriented to situation Psychiatric exam: PRESENT: appropriate affect, normal mood Skin exam: PRESENT: dry, intact, warm Results Laboratory Results: 07/23/19 02:59 07/23/19 06:35 07/22/19 07/22/19 07/22/19 11:18 11:18 11:18 WBC RBC Hgb Hct MCV MCH MCHC RDW Plt Count Seg Neutrophils % Sodium 141.4 Potassium 5.2 H Chloride 107 Carbon Dioxide 23 Anion Gap 11 BUN 33 H Creatinine 1.94 H Est GFR ( Amer) 42 L Glucose 58 L Lactic Acid 2.1 Calcium 10.3 H Magnesium Total Bilirubin 0.5 AST 20 Alkaline Phosphatase 107 Total Protein 7.7 Albumin 4.3 Lipase TSH 7.13 H Urine Color Urine Appearance Urine pH Ur Specific [place] Urine Protein Urine Glucose (UA) Urine Ketones Urine Blood Urine Nitrite Ur Leukocyte Esterase Urine WBC (Auto) Urine RBC (Auto) 07/22/19 07/22/19 07/23/19 12:30 15:48 00:05 WBC 9.4 RBC 4.50 Hgb 12.6 L Hct 37.8 L MCV 84 MCH 27.9 MCHC 33.3 RDW 13.9 Plt Count 199 Seg Neutrophils % 70.1 Sodium Potassium Chloride Carbon Dioxide Anion Gap BUN Creatinine Est GFR ( Amer) Glucose Lactic Acid 2.6 H Calcium Magnesium Total Bilirubin AST Alkaline Phosphatase Total Protein Albumin Lipase TSH Urine Color YELLOW Urine Appearance CLEAR Urine pH 5.0 Ur Specific [place] 1.021 Urine Protein 30 H Urine Glucose (UA) 50 H Urine Ketones NEGATIVE Urine Blood NEGATIVE Urine Nitrite NEGATIVE Ur Leukocyte Esterase NEGATIVE Urine WBC (Auto) 2 Urine RBC (Auto) 2 07/23/19 07/23/19 07/23/19 02:59 02:59 03:58 WBC 8.9 RBC 4.52 Hgb 12.6 L Hct 37.6 L MCV 83 MCH 27.8 MCHC 33.5 RDW 14.0 Plt Count 194 Seg Neutrophils % 70.8 Sodium 137.6 Potassium 6.7 H* D 6.4 H* Chloride 109 H Carbon Dioxide 20 L Anion Gap 9 BUN 30 H Creatinine 1.47 H Est GFR ( Amer) 58 L Glucose 233 H Lactic Acid Calcium 9.0 Magnesium 1.4 L Total Bilirubin 0.4 AST 16 L Alkaline Phosphatase 90 Total Protein 6.7 Albumin 3.6 Lipase 54.6 TSH Urine Color Urine Appearance Urine pH Ur Specific [place] Urine Protein Urine Glucose (UA) Urine Ketones Urine Blood Urine Nitrite Ur Leukocyte Esterase Urine WBC (Auto) Urine RBC (Auto) 07/23/19 06:35 WBC RBC Hgb Hct MCV MCH MCHC RDW Plt Count Seg Neutrophils % Sodium Potassium 5.9 H Chloride Carbon Dioxide Anion Gap BUN Creatinine Est GFR ( Amer) Glucose Lactic Acid Calcium Magnesium Total Bilirubin AST Alkaline Phosphatase Total Protein Albumin Lipase TSH Urine Color Urine Appearance Urine pH Ur Specific [place] Urine Protein Urine Glucose (UA) Urine Ketones Urine Blood Urine Nitrite Ur Leukocyte Esterase Urine WBC (Auto) Urine RBC (Auto) 07/22/19 07/22/19 07/22/19 11:18 11:18 13:56 Creatine Kinase 54 L CK-MB (CK-2) 0.76 Troponin I < 0.012 < 0.012 NT-Pro-B Natriuret Pep 07/22/19 07/22/19 07/22/19 15:48 21:18 21:18 Creatine Kinase 56 54 L CK-MB (CK-2) Cancelled Troponin I Cancelled NT-Pro-B Natriuret Pep 07/22/19 07/23/19 07/23/19 21:18 02:59 02:59 Creatine Kinase 46 L CK-MB (CK-2) 0.86 0.63 Troponin I < 0.012 < 0.012 NT-Pro-B Natriuret Pep 07/23/19 02:59 Creatine Kinase CK-MB (CK-2) Troponin I NT-Pro-B Natriuret Pep 95 Impressions: Head MRI 07/22/19 00:00 IMPRESSION: Left mastoid effusion. Correlate for mastoiditis. EVIDENCE OF ACUTE STROKE: NO. Chest X-Ray 07/22/19 11:26 IMPRESSION: Cardiomegaly and patchy bibasilar opacities - correlate with clinical findings to exclude pneumonia. Head CT 07/22/19 12:03 IMPRESSION: 1. No acute intracranial abnormality. 2. Partial opacification of the left mastoid air cells. EVIDENCE OF ACUTE STROKE: NO. Chest CT 07/22/19 12:25 IMPRESSION: Mosaic attenuation of the lung parenchyma could represent a component of air trapping in the setting of small airway disease. Assessment & Plan - Diagnosis (1) Acute kidney injury Is this a current diagnosis for this admission?: Yes Plan: nonoliguric, looks to be due to dehydration with other insults from hypotension and the current pneumonia. Continue with fluids at this time. Looks to be improved. BP has also improved, hold lisinopril and continue with amlodipine. Looks to have a baseline around 0.9 to 1.0. Antibiotics look to be of proper renal dosing. (2) Dehydration Is this a current diagnosis for this admission?: Yes Plan: continue with 1/2NS (3) Hyperkalemia Is this a current diagnosis for this admission?: Yes Plan: Discussed a proper low potassium diet with him and his . Continue to hold lisinorpil for now. Will look to have them seen by a dietitian for proper low potassium and low sugar diet. Patient may need higher dose of kayexelate with how high his potassium was this morning. (4) Hypertension Qualifiers: Hypertension type: unspecified Qualified Code(s): I10 - Essential (primary) hypertension Plan: recently started on amlodipine and will hold lisinopril for now. (5) Pneumonia Qualifiers: Pneumonia type: due to unspecified organism Laterality: unspecified laterality Lung location: unspecified part of lung Qualified Code(s): J18.9 - Pneumonia, unspecified organism Is this a current diagnosis for this admission?: Yes Plan: continue on current antibiotics. (6) Hypotension Qualifiers: Hypotension type: unspecified hypotension type Qualified Code(s): I95.9 - Hypotension, unspecified Is this a current diagnosis for this admission?: Yes Plan: looks to have resolved (7) Syncope Qualifiers: Encounter type: initial encounter Plan: per cardiology and primary (8) COPD (chronic obstructive pulmonary disease) Qualifiers: COPD type: unspecified COPD Qualified Code(s): J44.9 - Chronic obstructive pulmonary disease, unspecified Is this a current diagnosis for this admission?: Yes Plan: per primary
[2019-07-23 12:45] LABS: ANION GAP 10 (5-19); BLOOD UREA NITROGEN 24 mg/dL (7-20); CALCIUM 9.3 mg/dL (8.4-10.2); CARBON DIOXIDE 21 mmol/L (22-30); CHLORIDE 109 mmol/L (98-107); GLUCOSE 275 mg/dL (75-110); POTASSIUM 5.7 mmol/L (3.6-5.0)
[2019-07-23] MEDS: TRAMADOL HCL 50 MG TABLET PO SCH ×2 (13:13→22:53)
[2019-07-23] MEDS ORDERED: INSULIN GLARGINE,HUM.REC.ANLOG 1,000 UNIT/10 ML VIAL SUBCUT SCH (18:00)
[2019-07-23] MEDS: MONTELUKAST SODIUM 10 MG TABLET PO SCH (18:09)
[2019-07-23] MEDS: ATORVASTATIN CALCIUM 40 MG TABLET PO SCH (22:52)
[2019-07-23] MEDS: METOPROLOL TARTRATE 25 MG TABLET PO SCH (22:53)
[2019-07-23] MEDS: LIDOCAINE 5% (700 MG) TRANSDERMAL ADH..PATCH TP SCH (22:54)
--- NOTE | 2019-07-23 22:58 | Progress Note ---
Provider Note Provider Note: 2D echo shows normal LVEF, minimal pericardial effusion, mild LVH, no significant valve disease. Cardiac enzymes noted to be negative. Chest discomfort is felt to be noncardiac. Renal functions are improving.
[2019-07-24] MEDS: PANTOPRAZOLE SODIUM 40 MG TABLET.DR PO SCH (05:12)
[2019-07-24] MEDS: TRAMADOL HCL 50 MG TABLET PO SCH ×3 (05:12→22:37)
[2019-07-24] MEDS: 1/2 NORMAL SALINE 1,000 ML IV PRN (05:15)
[2019-07-24 06:41] LABS: ABSOLUTE BASOPHILS # (AUTO) 0.1 10^3/uL (0.0-0.2); ABSOLUTE EOSINOPHILS # (AUTO) 0.3 10^3/uL (0.0-0.6); ABSOLUTE LYMPHOCYTES (AUTO) 2.2 10^3/uL (0.5-4.7); ABSOLUTE MONOCYTES (AUTO) 0.8 10^3/uL (0.1-1.4); ABSOLUTE NEUT (AUTO) 4.8 10^3/uL (1.7-8.2); BASOPHILS % (AUTO) 0.8 % (0-2); EOSINOPHILS % (AUTO) 3.5 % (0-6); HEMATOCRIT 37.7 % (37.9-51.0); HEMOGLOBIN 12.7 g/dL (13.5-17.0); LYMPHOCYTES % (AUTO) 27.5 % (13-45); MEAN CORPUSCULAR HEMOGLOBIN 27.8 pg (27.0-33.4); MEAN CORPUSCULAR HGB CONC 33.7 g/dL (32.0-36.0); MEAN CORPUSCULAR VOLUME 83 fl (80-97); MONOCYTES % (AUTO) 9.5 % (3-13); PLATELET COUNT 205 10^3/uL (150-450); RED BLOOD COUNT 4.57 10^6/uL (4.35-5.55); RED CELL DISTRIBUTION WIDTH 13.8 % (11.5-14.0); SEGMENTED NEUTROPHILS % (AUTO) 58.7 % (42-78); TOTAL CELLS COUNTED % (AUTO) 100 %; WHITE BLOOD COUNT 8.1 10^3/uL (4.0-10.5)
[2019-07-24 07:03] LABS: ANION GAP 10 (5-19); BLOOD UREA NITROGEN 19 mg/dL (7-20); CALCIUM 8.8 mg/dL (8.4-10.2); CARBON DIOXIDE 23 mmol/L (22-30); CHLORIDE 107 mmol/L (98-107); GLUCOSE 130 mg/dL (75-110)
[2019-07-24 07:11] LABS: POTASSIUM 4.6 mmol/L (3.6-5.0)
[2019-07-24] MEDS: INSULIN LISPRO 100 UNIT/ML 3 ML VIAL SUBCUT SCH ×4 (08:12→22:37)
--- NOTE | 2019-07-24 08:52 | EKG REPORT ---
SEVERITY:- NORMAL ECG - SINUS RHYTHM : Confirmed by: Sushma Washington MD 24-Jul-2019 08:52:05
--- NOTE | 2019-07-24 09:10 | PDOC PROGRESS REPORT ---
Subjective Progress Note for:: 07/24/19 Subjective:: Patient was seen sitting up in his bed. The only complaint is the pain from his broken ribs on his left side. He denies SOB, N/V/D/C or muscle cramps. He produced 2250mL of urine yesterday. Reason For Visit: DIZZINESS, DEHYDRATION, RENAL FAILURE Physical Exam Vital Signs: Temp Pulse Resp BP Pulse Ox 98.7 F 71 17 158/83 H 94 07/24/19 08:00 07/24/19 08:00 07/24/19 08:00 07/24/19 08:00 07/24/19 08:00 Intake & Output 07/23/19 07/24/19 07/25/19 06:59 06:59 06:59 Intake Total 1750 1540 Output Total 525 2250 Balance 1225 -710 Weight 85.275 kg 89.7 kg General appearance: PRESENT: no acute distress, well-developed, well-nourished Mouth exam: PRESENT: moist, neck supple Neck exam: ABSENT: JVD, tracheal deviation Respiratory exam: PRESENT: rhonchi. ABSENT: accessory muscle use, clear to auscultation raya, crackles, rales, wheezes Cardiovascular exam: PRESENT: RRR, +S1, +S2 GI/Abdominal exam: PRESENT: soft. ABSENT: tenderness Extremities exam: ABSENT: tenderness, +1 edema, +2 edema Musculoskeletal exam: PRESENT: normal inspection. ABSENT: tenderness Neurological exam: PRESENT: alert, awake, oriented to person, oriented to place, oriented to time, oriented to situation Psychiatric exam: PRESENT: appropriate affect, normal mood Skin exam: PRESENT: dry, intact, warm Results Laboratory Results: 07/24/19 05:52 07/24/19 05:52 07/23/19 07/24/19 07/24/19 11:45 05:52 05:52 WBC 8.1 RBC 4.57 Hgb 12.7 L Hct 37.7 L MCV 83 MCH 27.8 MCHC 33.7 RDW 13.8 Plt Count 205 Seg Neutrophils % 58.7 Sodium 139.8 139.9 Potassium 5.7 H 4.6 D Chloride 109 H 107 Carbon Dioxide 21 L 23 Anion Gap 10 10 BUN 24 H 19 Creatinine 1.13 0.91 Est GFR ( Amer) > 60 > 60 Glucose 275 H 130 H Calcium 9.3 8.8 Magnesium 1.4 L 07/22/19 07/22/19 07/22/19 11:18 11:18 13:56 Creatine Kinase 54 L CK-MB (CK-2) 0.76 Troponin I < 0.012 < 0.012 NT-Pro-B Natriuret Pep 07/22/19 07/22/19 07/22/19 15:48 21:18 21:18 Creatine Kinase 56 54 L CK-MB (CK-2) Cancelled Troponin I Cancelled NT-Pro-B Natriuret Pep 07/22/19 07/23/19 07/23/19 21:18 02:59 02:59 Creatine Kinase 46 L CK-MB (CK-2) 0.86 0.63 Troponin I < 0.012 < 0.012 NT-Pro-B Natriuret Pep 07/23/19 07/24/19 02:59 05:52 Creatine Kinase CK-MB (CK-2) Troponin I NT-Pro-B Natriuret Pep 95 122 Impressions: Head MRI 07/22/19 00:00 IMPRESSION: Left mastoid effusion. Correlate for mastoiditis. EVIDENCE OF ACUTE STROKE: NO. Chest X-Ray 07/22/19 11:26 IMPRESSION: Cardiomegaly and patchy bibasilar opacities - correlate with clinical findings to exclude pneumonia. Head CT 07/22/19 12:03 IMPRESSION: 1. No acute intracranial abnormality. 2. Partial opacification of the left mastoid air cells. EVIDENCE OF ACUTE STROKE: NO. Chest CT 07/22/19 12:25 IMPRESSION: Mosaic attenuation of the lung parenchyma could represent a component of air trapping in the setting of small airway disease. Assessment & Plan - Diagnosis (1) Acute kidney injury Is this a current diagnosis for this admission?: Yes Plan: Looks to be at baseline with no underlining kidney disease. Recommend continuing IV fluids until he has better oral intake. (2) Dehydration Is this a current diagnosis for this admission?: Yes Plan: resolved, but looks to still have poor oral intake (3) Hyperkalemia Is this a current diagnosis for this admission?: Yes Plan: resolved, discussed again a low potassium diet (4) Hypertension Qualifiers: Hypertension type: unspecified Qualified Code(s): I10 - Essential (primary) hypertension Plan: will look to reintroduce lisinopril at 5mg and reassess bp and potassium (5) Pneumonia Qualifiers: Pneumonia type: due to unspecified organism Laterality: unspecified laterality Lung location: unspecified part of lung Qualified Code(s): J18.9 - Pneumonia, unspecified organism Is this a current diagnosis for this admission?: Yes Plan: per primary (6) Hypotension Qualifiers: Hypotension type: unspecified hypotension type Qualified Code(s): I95.9 - Hypotension, unspecified Is this a current diagnosis for this admission?: Yes Plan: resolved (7) Syncope Qualifiers: Encounter type: initial encounter Plan: per primary and cardiology (8) COPD (chronic obstructive pulmonary disease) Qualifiers: COPD type: unspecified COPD Qualified Code(s): J44.9 - Chronic obstructive pulmonary disease, unspecified Is this a current diagnosis for this admission?: Yes Plan: per primary
--- NOTE | 2019-07-24 09:50 | PDOC PROGRESS REPORT ---
Subjective Progress Note for:: 07/24/19 Subjective:: Patient is currently doing well Patient's still have ongoing left-sided rib pain still have some cough His kidney function is all improving patient potassium is all normal Patient echocardiogram is all stable Reason For Visit: DIZZINESS, DEHYDRATION, RENAL FAILURE Physical Exam Vital Signs: Temp Pulse Resp BP Pulse Ox 98.7 F 71 17 158/83 H 94 07/24/19 08:00 07/24/19 08:00 07/24/19 08:00 07/24/19 08:00 07/24/19 08:00 Intake & Output 07/23/19 07/24/19 07/25/19 06:59 06:59 06:59 Intake Total 1750 1540 Output Total 525 2250 Balance 1225 -710 Weight 85.275 kg 89.7 kg General appearance: PRESENT: no acute distress, well-developed, well-nourished Head exam: PRESENT: atraumatic, normocephalic Eye exam: PRESENT: conjunctiva pink, EOMI, PERRLA. ABSENT: scleral icterus Ear exam: PRESENT: normal external ear exam Mouth exam: PRESENT: moist, tongue midline Neck exam: PRESENT: full ROM. ABSENT: carotid bruit, JVD, lymphadenopathy, thyromegaly Respiratory exam: PRESENT: clear to auscultation raya Cardiovascular exam: PRESENT: RRR. ABSENT: diastolic murmur, rubs, systolic murmur Pulses: PRESENT: normal dorsalis pedis pul, +2 pedal pulses bilateral Vascular exam: PRESENT: normal capillary refill GI/Abdominal exam: PRESENT: normal bowel sounds, soft. ABSENT: distended, guarding, mass, organolmegaly, rebound, tenderness Rectal exam: PRESENT: deferred Musculoskeletal exam: PRESENT: ambulatory Neurological exam: PRESENT: alert, awake, oriented to person, oriented to place, oriented to time, oriented to situation, CN II-XII grossly intact. ABSENT: motor sensory deficit Psychiatric exam: PRESENT: appropriate affect, normal mood. ABSENT: homicidal ideation, suicidal ideation Skin exam: PRESENT: dry, intact, warm. ABSENT: cyanosis, rash Results Laboratory Results: 07/24/19 05:52 07/24/19 05:52 07/23/19 07/24/19 07/24/19 11:45 05:52 05:52 WBC 8.1 RBC 4.57 Hgb 12.7 L Hct 37.7 L MCV 83 MCH 27.8 MCHC 33.7 RDW 13.8 Plt Count 205 Seg Neutrophils % 58.7 Sodium 139.8 139.9 Potassium 5.7 H 4.6 D Chloride 109 H 107 Carbon Dioxide 21 L 23 Anion Gap 10 10 BUN 24 H 19 Creatinine 1.13 0.91 Est GFR ( Amer) > 60 > 60 Glucose 275 H 130 H Calcium 9.3 8.8 Magnesium 1.4 L 07/22/19 07/22/19 07/22/19 11:18 11:18 13:56 Creatine Kinase 54 L CK-MB (CK-2) 0.76 Troponin I < 0.012 < 0.012 NT-Pro-B Natriuret Pep 07/22/19 07/22/19 07/22/19 15:48 21:18 21:18 Creatine Kinase 56 54 L CK-MB (CK-2) Cancelled Troponin I Cancelled NT-Pro-B Natriuret Pep 07/22/19 07/23/19 07/23/19 21:18 02:59 02:59 Creatine Kinase 46 L CK-MB (CK-2) 0.86 0.63 Troponin I < 0.012 < 0.012 NT-Pro-B Natriuret Pep 07/23/19 07/24/19 02:59 05:52 Creatine Kinase CK-MB (CK-2) Troponin I NT-Pro-B Natriuret Pep 95 122 Impressions: Head MRI 07/22/19 00:00 IMPRESSION: Left mastoid effusion. Correlate for mastoiditis. EVIDENCE OF ACUTE STROKE: NO. Chest X-Ray 07/22/19 11:26 IMPRESSION: Cardiomegaly and patchy bibasilar opacities - correlate with clinical findings to exclude pneumonia. Head CT 07/22/19 12:03 IMPRESSION: 1. No acute intracranial abnormality. 2. Partial opacification of the left mastoid air cells. EVIDENCE OF ACUTE STROKE: NO. Chest CT 07/22/19 12:25 IMPRESSION: Mosaic attenuation of the lung parenchyma could represent a component of air trapping in the setting of small airway disease. Assessment & Plan - Diagnosis (1) Acute kidney injury Is this a current diagnosis for this admission?: Yes Plan: Currently all resolved (2) Hypotension Qualifiers: Hypotension type: unspecified hypotension type Qualified Code(s): I95.9 - Hypotension, unspecified Is this a current diagnosis for this admission?: Yes Plan: Currently all resolved (3) Pneumonia Qualifiers: Pneumonia type: due to unspecified organism Laterality: unspecified laterality Lung location: unspecified part of lung Qualified Code(s): J18.9 - Pneumonia, unspecified organism Is this a current diagnosis for this admission?: Yes Plan: Start the patient on IV antibiotic (4) COPD (chronic obstructive pulmonary disease) Qualifiers: COPD type: unspecified COPD Qualified Code(s): J44.9 - Chronic obstructive pulmonary disease, unspecified Is this a current diagnosis for this admission?: Yes Plan: Continues to PRN nebulizer treatments (5) Chest pain Qualifiers: Chest pain type: unspecified Qualified Code(s): R07.9 - Chest pain, unspecified Is this a current diagnosis for this admission?: Yes Plan: Due to the refracture we will repeat the x-ray of the rib and the chest (6) Coronary artery disease Qualifiers: Coronary Disease-Associated Artery/Lesion type: [place] artery Is this a current diagnosis for this admission?: Yes Plan: Currently all stable (7) Dehydration Is this a current diagnosis for this admission?: Yes Plan: Currently all resolved (8) Hyperglycemia due to type 2 diabetes mellitus Qualifiers: Diabetes mellitus group home insulin use: with tank terminal gauger use Qualified Code(s): E11.65 - Type 2 diabetes mellitus with hyperglycemia; Z79.4 - termination clerk (current) use of insulin Is this a current diagnosis for this admission?: Yes Plan: Currently all stable continues a sliding scale of the Lantus (9) Hyperkalemia Is this a current diagnosis for this admission?: Yes Plan: Currently all resolved (10) Hyperlipidemia Qualifiers: Hyperlipidemia type: unspecified Qualified Code(s): E78.5 - Hyperlipidemia, unspecified Is this a current diagnosis for this admission?: Yes (11) Sleep apnea syndrome Qualifiers: Is this a current diagnosis for this admission?: Yes Plan: She is noncompliance using the CPAP (12) Syncope Qualifiers: Syncope type: unspecified Qualified Code(s): R55 - Syncope and collapse Is this a current diagnosis for this admission?: Yes - Time Time Spent with patient: 25-34 minutes Medications reviewed and adjusted accordingly: Yes Anticipated discharge: SNF Within: Other - Plan Summary Plan Summary: We will repeat the x-ray of the rib and chest Use the tramadol for the pain Use a lidocaine patch and continues to IV antibiotic
[2019-07-24] MEDS: ASPIRIN 81 MG TABLET, ENT COATED PO SCH (09:52)
[2019-07-24] MEDS: METOPROLOL TARTRATE 25 MG TABLET PO SCH ×2 (09:53→22:37)
[2019-07-24] MEDS: SITAGLIPTIN PHOSPHATE 50 MG TABLET PO SCH (09:55)
[2019-07-24] MEDS: AMLODIPINE BESYLATE 5 MG TABLET PO SCH (09:56)
[2019-07-24] MEDS: FINASTERIDE 5 MG TABLET PO SCH (09:57)
[2019-07-24] MEDS: ENOXAPARIN SODIUM INJ 40 MG/0.4 ML DISP.SYRIN SUBCUT SCH (09:58)
[2019-07-24] MEDS: CEFEPIME 1 GM/D5W RTU 1 GM/50 ML RTUPB IV SCH ×2 (10:00→22:37)
[2019-07-24] MEDS: ISOSORBIDE MONONITRATE 60 MG TAB.ER.24H PO SCH (10:03)
[2019-07-24] MEDS: MAGNESIUM OXIDE 400 MG TABLET PO SCH (10:11)
[2019-07-24] MEDS: LISINOPRIL 5 MG TABLET PO SCH (10:11)
[2019-07-24] MEDS: MAGNESIUM SULFATE/D5W 1 GM/100 ML RTUPB IV SCH ×3 (10:14→11:58)
[2019-07-24] MEDS: PHARMACY COMMUNICATION ORDER MC SCH (10:19)
--- NOTE | 2019-07-24 11:24 | PDOC CONSULTATION ---
Consultation Consult Date: 07/23/19 Attending physician:: ZAIRE GEIGER Provider Consulted: JAKOB RODRÍGUEZ Consult reason:: Dyspnea History of Present Illness Admission Date/PCP: 07/22/19 14:00 ZAIRE GEIGER MD History of Present Illness: TAHIR FOURNIER is a 63 year old male with multiple medical problems all of which appear to stem from insulin-dependent diabetes mellitus with subsequent coronary artery disease and renal failure unfortunately patient has history of being noncompliant he is also somewhat diminished in his response and so the history is compiled from her medical records and from some information his spouse was able to add. He used to be a smoker apparently for 40 to somewhat years but has not smoked in the last 4 years. His PPD was negative dates unknown no history of chronic lung disease as a child or adolescent exposure to large amounts of p assive smoke as a child as well as an adult. In addition to caring diagnosis of COPD also carries a diagnosis of obstructive sleep apnea. . Past Medical History Cardiac Medical History: Reports: Coronary Artery Disease - CARDIAC STENTS X5, Hyperlipidema, Hypertension Denies: Atrial Fibrillation, Congestive Heart Failure, Myocardial Infarction, Peripheral Vascular Disease, Pulmonary Embolism Pulmonary Medical History: Reports: Asthma, Bronchitis, Chronic Obstructive Pulmonary Disease (COPD), Pneumonia, Sleep Apnea Denies: Respiratory Failure, Tuberculosis Neurological Medical History: Denies: Seizures Endocrine Medical History: Reports: Diabetes Mellitus Type 1, Diabetes Mellitus Type 2 Denies: Hyperthyroidism, Hypothyroidism Renal/ Medical History: Reports: Chronic Kidney Disease Denies: End Stage Renal Disease Malignancy Medical History: Denies: Leukemia, Lung Cancer GI Medical History: Reports: Gastroesophageal Reflux Disease, Hiatal Hernia Denies: Crohn's Disease Musculoskeltal Medical History: Reports: Arthritis - bursitis left shoulder, back bone spurs Denies: Fibromyalgia Psychiatric Medical History: Denies: Bipolar Disorder, Dementia, Depression, Post Traumatic Stress Disorder Hematology: Reports: Anemia Infectious Medical History: Denies: HIV Past Surgical History Past Surgical History: Reports: Cardiac Catheterization - 5 stents, Cholecystectomy, Coronary Stent, Orthopedic Surgery - right leg, back surgery, Tonsillectomy Denies: Appendectomy, Colostomy, Coronary Artery Bypass Graft, Gastric Bypass Surgery, Herniorrhaphy, Pacemaker Social History Information Source: Relative, [facility] Records Lives with: Family Smoking Status: Former Smoker Cigarettes Packs Per Day: 1 Number of Years Smokin Passive smoke exposure as: Both Frequency of Alcohol Use: None Hx Recreational Drug Use: No Drugs: None Hx Prescription Drug Abuse: No Do you have pets?: No Have you had any respiratory illnesses as a child?: No Have you been exposed to any sick contacts recently?: No Have you had any recent respiratory illnesses?: No Have you travelled outside of [place] in the past 12 months?: No Family History Family History: Arthritis, CAD, CVA, DM, Hyperlipidemia, Hypertension, Malignancy Parental Family History Reviewed: Yes Children Family History Reviewed: Yes Sibling(s) Family History Reviewed.: Yes Medication/Allergy Home Medications: Albuterol Sulfate [Proair HFA Inhalation Aerosol 8.5 gm MDI] 2 puff IH Q4HP PRN 07/22/19 Amlodipine Besylate [Norvasc 5 mg Tablet] 5 mg PO DAILY 07/22/19 Aspirin [Adult Low Dose Aspirin EC] 81 mg PO DAILY 07/22/19 Atorvastatin Calcium [Lipitor 40 mg Tablet] 40 mg PO QHS 07/22/19 Fenofibrate Nanocrystallized [Tricor 145 mg Tablet] 145 mg PO DAILY 07/22/19 Finasteride [Proscar 5 mg Tablet] 5 mg PO DAILY 07/22/19 Gabapentin [Neurontin 300 mg Capsule] 300 mg PO Q12 07/22/19 Hydrocodone/Acetaminophen [Channing 5-325 Tablet] 1 tab PO Q4HP PRN 07/22/19 Ibuprofen [Motrin 800 mg Tablet] 800 mg PO Q8HP PRN 07/22/19 Insulin Aspart [Novolog Flexpen] 70 units SQ QID 07/22/19 Insulin Glargine,Hum.rec.anlog [Lantus Insulin 100 Unit/1 ml 10 ml] 95 units SQ QPM 07/22/19 Isosorbide Mononitrate [Imdur 60 mg Tablet.er] 60 mg PO DAILY 07/22/19 Levocetirizine Dihydrochloride [Xyzal] 5 mg PO QPM 07/22/19 Linagliptin [Tradjenta] 5 mg PO DAILY 07/22/19 Lisinopril [Zestril] 5 mg PO DAILY 07/22/19 Meclizine HCl [Antivert 12.5 mg Tablet] 12.5 mg PO BID 07/22/19 Metoprolol Tartrate [Lopressor 25 mg Tablet] 25 mg PO BID 07/22/19 Montelukast Sodium [Singulair 10 mg Tablet] 10 mg PO QPM 07/22/19 Nitroglycerin [Nitrostat 0.4 mg (1/150 Gr) Tabs 25/Bottle] 0.4 mg SL Q5MP PRN 07/22/19 Omeprazole 40 mg PO DAILY 07/22/19 Tamsulosin HCl [Flomax 0.4 mg Cap.sr] 0.4 mg PO QPM 07/22/19 Allergies/Adverse Reactions: clopidogrel bisulfate [From Plavix] Adverse Reaction (Severe, Verified 06/19/19 21:02) bleeding from ear/NOSE Review of Systems ROS unobtainable: Due to mental status Physical Exam Vital Signs: Temp Pulse Resp BP Pulse Ox 98.7 F 71 17 158/83 H 94 07/24/19 08:00 07/24/19 08:00 07/24/19 08:00 07/24/19 08:00 07/24/19 08:00 Intake & Output 07/23/19 07/24/19 07/25/19 06:59 06:59 06:59 Intake Total 1750 1540 Output Total 525 2250 Balance 1225 -710 Weight 85.275 kg 89.7 kg General appearance: PRESENT: no acute distress, cooperative, disheveled, hard of hearing, well-developed, well-nourished Head exam: PRESENT: atraumatic, normocephalic Eye exam: PRESENT: conjunctiva pale, EOMI. ABSENT: nystagmus, periorbital swelling Mouth exam: PRESENT: dry mucosa, neck supple, tongue midline Neck exam: ABSENT: carotid bruit, full ROM, JVD, lymphadenopathy, meningismus, tenderness, thyromegaly, tracheal deviation, tracheostomy, other Respiratory exam: PRESENT: decreased breath sounds, prolonged expiratory phas, rhonchi, symmetrical, unlabored. ABSENT: retraction, stridor, tachypnea Cardiovascular exam: PRESENT: RRR, +S1, +S2. ABSENT: tachycardia Pulses: PRESENT: normal radial pulses GI/Abdominal exam: PRESENT: soft. ABSENT: distended, guarding, mass, rebound, tenderness Extremities exam: ABSENT: calf tenderness, clubbing, joint swelling, tenderness Musculoskeletal exam: ABSENT: ambulatory, deformity, dislocation Neurological exam: PRESENT: altered, awake Psychiatric exam: PRESENT: flat affect Skin exam: PRESENT: dry, warm Results Laboratory Results: 07/24/19 05:52 07/24/19 05:52 07/23/19 07/24/19 07/24/19 11:45 05:52 05:52 WBC 8.1 RBC 4.57 Hgb 12.7 L Hct 37.7 L MCV 83 MCH 27.8 MCHC 33.7 RDW 13.8 Plt Count 205 Seg Neutrophils % 58.7 Sodium 139.8 139.9 Potassium 5.7 H 4.6 D Chloride 109 H 107 Carbon Dioxide 21 L 23 Anion Gap 10 10 BUN 24 H 19 Creatinine 1.13 0.91 Est GFR ( Amer) > 60 > 60 Glucose 275 H 130 H Calcium 9.3 8.8 Magnesium 1.4 L 07/22/19 07/22/19 07/22/19 11:18 11:18 13:56 Creatine Kinase 54 L CK-MB (CK-2) 0.76 Troponin I < 0.012 < 0.012 NT-Pro-B Natriuret Pep 07/22/19 07/22/19 07/22/19 15:48 21:18 21:18 Creatine Kinase 56 54 L CK-MB (CK-2) Cancelled Troponin I Cancelled NT-Pro-B Natriuret Pep 07/22/19 07/23/19 07/23/19 21:18 02:59 02:59 Creatine Kinase 46 L CK-MB (CK-2) 0.86 0.63 Troponin I < 0.012 < 0.012 NT-Pro-B Natriuret Pep 07/23/19 07/24/19 02:59 05:52 Creatine Kinase CK-MB (CK-2) Troponin I NT-Pro-B Natriuret Pep 95 122 Impressions: Head MRI 07/22/19 00:00 IMPRESSION: Left mastoid effusion. Correlate for mastoiditis. EVIDENCE OF ACUTE STROKE: NO. Chest X-Ray 07/22/19 11:26 IMPRESSION: Cardiomegaly and patchy bibasilar opacities - correlate with clinical findings to exclude pneumonia. Head CT 07/22/19 12:03 IMPRESSION: 1. No acute intracranial abnormality. 2. Partial opacification of the left mastoid air cells. EVIDENCE OF ACUTE STROKE: NO. Chest CT 07/22/19 12:25 IMPRESSION: Mosaic attenuation of the lung parenchyma could represent a component of air trapping in the setting of small airway disease. Assessment & Plan - Diagnosis (1) Pneumonia Qualifiers: Pneumonia type: due to unspecified organism Laterality: unspecified laterality Lung location: unspecified part of lung Qualified Code(s): J18.9 - Pneumonia, unspecified organism Is this a current diagnosis for this admission?: Yes Plan: Positive cultures thus far positive Gram stain just for no leukocytosis no fever no left shift (2) COPD (chronic obstructive pulmonary disease) Qualifiers: COPD type: unspecified COPD Qualified Code(s): J44.9 - Chronic obstructive pulmonary disease, unspecified Is this a current diagnosis for this admission?: Yes Plan: Generic Name Dose Route Start Last Admin Trade Name Freq PRN Reason Stop Dose Admin Albuterol/Ipratropium 3 ml 07/22/19 13:31 07/23/19 08:37 Duoneb 3 Ml Ampul NEB 08/21/19 13:30 3 ml [id number] PRN SHORTNESS OF BREATH Montelukast Sodium 10 mg 07/22/19 18:00 07/23/19 18:09 Singulair 10 Mg Tablet PO 08/21/19 17:59 10 mg QPM RODRICK (3) Dyspnea Qualifiers: Dyspnea type: unspecified Qualified Code(s): R06.00 - Dyspnea, unspecified Is this a current diagnosis for this admission?: Yes Plan: COPD+CHF+RENAL disease (4) Sleep apnea syndrome Qualifiers: Is this a current diagnosis for this admission?: Yes Plan: Continue CPAP he recently was switched to BiPAP for limited amount of time
[2019-07-24] MEDS: LEVOFLOXACIN 500 MG/D5W RTU 500 MG/100 ML RTUPB IV SCH (11:58)
--- NOTE | 2019-07-24 15:34 | RADIOLOGY REPORT (SQ) ---
EXAM DESCRIPTION: RIBS LEFT W/PA CHEST COMPLETED DATE/TIME: 07/24/2019 3:14 pm REASON FOR STUDY: rib fx/pneumonia COMPARISON: None. TECHNIQUE: Frontal view of the chest and additional views of the left ribs acquired. NUMBER OF VIEWS: Four view. LIMITATIONS: None. FINDINGS: FRONTAL CXR: The cardiac silhouette is enlarged. The pulmonary vasculature is distended a nd there are and lines at the periphery of the right base that are perpendicular to the pleural surfa ce and extend out to it. There is no consolidation. The left lateral costophrenic sulcus is blunted . RIBS: Acute displaced fractures of the left 6th, 7th and 8th ribs. OTHER: No other finding. IMPRESSION: 1. Acute fractures of the left 6th, 7th and 8th ribs. 2. Cardiomegaly and Rehan B lines in the right base - correlate with clinical findings to exclude C HF. 3. Left pleural effusion that could be posttraumatic in etiology. COMMENT: SITE OF TRAUMA/COMPLAINT MARKED/STAMP COMPLETED: YES. TECHNICAL DOCUMENTATION: JOB ID: [id number] [employer]- All Rights Reserved Reading location - IP/workstation name: [email or web address]
[2019-07-24] MEDS: MONTELUKAST SODIUM 10 MG TABLET PO SCH (17:08)
[2019-07-24] MEDS: INSULIN GLARGINE,HUM.REC.ANLOG 1,000 UNIT/10 ML VIAL SUBCUT SCH (17:09)
[2019-07-24] MEDS: ATORVASTATIN CALCIUM 40 MG TABLET PO SCH (22:37)
[2019-07-24] MEDS: LIDOCAINE 5% (700 MG) TRANSDERMAL ADH..PATCH TP SCH (22:38)
--- NOTE | 2019-07-24 22:44 | PDOC PROGRESS REPORT ---
Subjective Progress Note for:: 07/24/19 Subjective:: Patient admitted with generalized weakness, dizziness. He had a fainting spell few days ago and was admitted to [facility] with negative work-up. He was diagnosed to have hypotension and possible urinary tract infection. A cardiac work-up was not performed. Patient was seen in the office by Dr. Giles today and was noted to be very weak, unsteady and also complained of chest pain. Patient tells me that with the fall few days ago, he had rib x-rays performed which showed some rib fracture on the left side. Patient was admitted for further evaluation and management for generalized weakness and chest pain. Initial cardiac enzymes have been negative. Patient was seen on morning rounds. There has been no significant change. An echocardiogram was ordered. This is because of known history of coronary artery disease. Reason For Visit: DIZZINESS, DEHYDRATION, RENAL FAILURE Physical Exam Vital Signs: Temp Pulse Resp BP Pulse Ox 98.3 F 65 16 141/77 H 92 07/24/19 19:14 07/24/19 19:14 07/24/19 19:14 07/24/19 19:14 07/24/19 19:14 Intake & Output 07/23/19 07/24/19 07/25/19 06:59 06:59 06:59 Intake Total 1750 1540 1213 Output Total 525 2250 200 Balance 1225 -710 1013 Weight 85.275 kg 89.7 kg Exam: GENERAL: well-nourished and in no acute distress. Alert and oriented x3 HEAD: Atraumatic, normocephalic. EYES: SOPHIA, sclera anicteric, conjunctiva are normal. ENT: Moist mucous membranes. No oral ulcerations or bleeding gums noted. No obvious ear, nose or throat abnormalities noted. NECK: supple without lymphadenopathy. Trachea is central. No cervical or axillary lymphadenopathy noted. Carotids are 2+, JVD WNL LUNGS: Breath sounds clear bilaterally. No wheezes rales or rhonchi noted. No significant dullness noted on percussion. CHEST: Palpation of the chest wall shows lt sided significant chest wall tenderness. 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 ABDOMEN: Soft, no significant tenderness appreciated, normoactive bowel sounds. No guarding, no rebound. No rigidity noted . No masses appreciated. EXTREMITIES: Pedal pulses are 1-2+, no calf tenderness noted. No clubbing or cyanosis. negative pedal edema noted NEUROLOGICAL: Focused neurological exam showed no significant neurologic deficit. Normal speech, no focal weakness appreciated. PSYCH: Normal mood, normal affect. Judgment and insight within normal limits. SKIN: No significant ecchymosis, skin is noted to be warm. MUSCULOSKELETAL EXAM: No significant acute joint swelling noted.GEN: NAD, patient alert oriented x3. Appearance and grooming WNL HEENT : Eyes: SOPHIA, Ears: No significant abnormalities, Nose: No significant abnormalities. normocephalic atraumatic. Flat midface (-), Receding chin (-) ORAL : Mallampati class IV, narrow arched palate (-) Tonsils: Not enlarged. NECK: no thyromegaly, no masses, trachea is central, JVD is not elevated, carotids 2+ with bruit (-) RESP: lungs clear, no rales, wheezes or rhonchi, nonlabored, accessory muscles of respiration use (-). CV: NL S1 and S2. No significant murmurs noted, no gallop, no extra sounds, no clicks, no rub noted. GI: abd NT to palpation, no masses, bowel sounds present, no guarding or rigidity noted. EXT: no clubbing, (-) cyanosis, edema (-), perpheral pulses diminished (no) MUSC/SKEL: no acute joint swelling noted. Muscle strength is generally intact. NEURO: no significant focal neurological deficits are note, sensation grossly intact, AO x 3 PSYCH: NL mood and affect. judgment and insight noted to be intact. SKIN: (-) rash, (-)Signs of pruritus, (-) other significant abnormality Results Laboratory Results: 07/24/19 05:52 07/24/19 05:52 07/24/19 07/24/19 05:52 05:52 WBC 8.1 RBC 4.57 Hgb 12.7 L Hct 37.7 L MCV 83 MCH 27.8 MCHC 33.7 RDW 13.8 Plt Count 205 Seg Neutrophils % 58.7 Sodium 139.9 Potassium 4.6 D Chloride 107 Carbon Dioxide 23 Anion Gap 10 BUN 19 Creatinine 0.91 Est GFR ( Amer) > 60 Glucose 130 H Calcium 8.8 Magnesium 1.4 L 07/22/19 07/22/19 07/22/19 11:18 11:18 13:56 Creatine Kinase 54 L CK-MB (CK-2) 0.76 Troponin I < 0.012 < 0.012 NT-Pro-B Natriuret Pep 07/22/19 07/22/19 07/22/19 15:48 21:18 21:18 Creatine Kinase 56 54 L CK-MB (CK-2) Cancelled Troponin I Cancelled NT-Pro-B Natriuret Pep 07/22/19 07/23/19 07/23/19 21:18 02:59 02:59 Creatine Kinase 46 L CK-MB (CK-2) 0.86 0.63 Troponin I < 0.012 < 0.012 NT-Pro-B Natriuret Pep 07/23/19 07/24/19 02:59 05:52 Creatine Kinase CK-MB (CK-2) Troponin I NT-Pro-B Natriuret Pep 95 122 Impressions: Head MRI 07/22/19 00:00 IMPRESSION: Left mastoid effusion. Correlate for mastoiditis. EVIDENCE OF ACUTE STROKE: NO. Chest X-Ray 07/22/19 11:26 IMPRESSION: Cardiomegaly and patchy bibasilar opacities - correlate with clinical findings to exclude pneumonia. Head CT 07/22/19 12:03 IMPRESSION: 1. No acute intracranial abnormality. 2. Partial opacification of the left mastoid air cells. EVIDENCE OF ACUTE STROKE: NO. Chest CT 07/22/19 12:25 IMPRESSION: Mosaic attenuation of the lung parenchyma could represent a component of air trapping in the setting of small airway disease. Ribs w/Chest X-Ray 07/24/19 00:00 IMPRESSION: 1. Acute fractures of the left 6th, 7th and 8th ribs. 2. Cardiomegaly and Rehan B lines in the right base - correlate with clinical findings to exclude CHF. 3. Left pleural effusion that could be posttraumatic in etiology. Assessment & Plan - Diagnosis (1) Hypotension Qualifiers: Hypotension type: unspecified hypotension type Qualified Code(s): I95.9 - Hypotension, unspecified Is this a current diagnosis for this admission?: Yes (2) COPD (chronic obstructive pulmonary disease) Qualifiers: COPD type: unspecified COPD Qualified Code(s): J44.9 - Chronic obstructive pulmonary disease, unspecified Is this a current diagnosis for this admission?: Yes (3) Chest pain Qualifiers: Chest pain type: unspecified Qualified Code(s): R07.9 - Chest pain, unspecified Is this a current diagnosis for this admission?: Yes (4) Coronary artery disease Qualifiers: Coronary Disease-Associated Artery/Lesion type: [place] artery Is this a current diagnosis for this admission?: Yes (5) Dehydration Is this a current diagnosis for this admission?: Yes - Notes Notes: 2D echocardiogram ordered. This was reviewed. It shows normal LVEF, mild LVH, minimal pericardial effusion. No significant valvular abnormalities noted. So far cardiac enzymes are negative. Patient was reassured. EKG strips and EKGs reviewed. Continue with slow IV hydration. - Time Time with patient: 15-25 minutes Medications reviewed and adjusted accordingly: Yes
--- NOTE | 2019-07-24 22:47 | PDOC PROGRESS REPORT ---
Subjective Progress Note for:: 07/23/19 Subjective:: Patient admitted with generalized weakness, dizziness. He had a fainting spell few days ago and was admitted to [facility] with negative work-up. He was diagnosed to have hypotension and possible urinary tract infection. A cardiac work-up was not performed. Patient was seen in the office by Dr. Giles today and was noted to be very weak, unsteady and also complained of chest pain. Patient tells me that with the fall few days ago, he had rib x-rays performed which showed some rib fracture on the left side. Patient was admitted for further evaluation and management for generalized weakness and chest pain. Initial cardiac enzymes have been negative 2D echo ordered. Is because of known CAD Reason For Visit: DIZZINESS, DEHYDRATION, RENAL FAILURE Physical Exam Vital Signs: Temp Pulse Resp BP Pulse Ox 98.3 F 65 16 141/77 H 92 07/24/19 19:14 07/24/19 19:14 07/24/19 19:14 07/24/19 19:14 07/24/19 19:14 Intake & Output 07/23/19 07/24/19 07/25/19 06:59 06:59 06:59 Intake Total 1750 1540 1213 Output Total 525 2250 200 Balance 1225 -710 1013 Weight 85.275 kg 89.7 kg Exam: GENERAL: well-nourished and in no acute distress. Alert and oriented x3 HEAD: Atraumatic, normocephalic. EYES: SOPHIA, sclera anicteric, conjunctiva are normal. ENT: Moist mucous membranes. No oral ulcerations or bleeding gums noted. No obvious ear, nose or throat abnormalities noted. NECK: supple without lymphadenopathy. Trachea is central. No cervical or axillary lymphadenopathy noted. Carotids are 2+, JVD WNL LUNGS: Breath sounds clear bilaterally. No wheezes rales or rhonchi noted. No significant dullness noted on percussion. CHEST: Palpation of the chest wall shows significant chest wall tenderness left side. 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 ABDOMEN: Soft, no significant tenderness appreciated, normoactive bowel sounds. No guarding, no rebound. No rigidity noted . No masses appreciated. EXTREMITIES: Pedal pulses are 1-2+, no calf tenderness noted. No clubbing or cyanosis. negative pedal edema noted NEUROLOGICAL: Focused neurological exam showed no significant neurologic deficit. Normal speech, no focal weakness appreciated. PSYCH: Normal mood, normal affect. Judgment and insight within normal limits. SKIN: No significant ecchymosis, skin is noted to be warm. MUSCULOSKELETAL EXAM: No significant acute joint swelling noted Results Laboratory Results: 07/24/19 05:52 07/24/19 05:52 07/24/19 07/24/19 05:52 05:52 WBC 8.1 RBC 4.57 Hgb 12.7 L Hct 37.7 L MCV 83 MCH 27.8 MCHC 33.7 RDW 13.8 Plt Count 205 Seg Neutrophils % 58.7 Sodium 139.9 Potassium 4.6 D Chloride 107 Carbon Dioxide 23 Anion Gap 10 BUN 19 Creatinine 0.91 Est GFR ( Amer) > 60 Glucose 130 H Calcium 8.8 Magnesium 1.4 L 07/22/19 07/22/19 07/22/19 11:18 11:18 13:56 Creatine Kinase 54 L CK-MB (CK-2) 0.76 Troponin I < 0.012 < 0.012 NT-Pro-B Natriuret Pep 07/22/19 07/22/19 07/22/19 15:48 21:18 21:18 Creatine Kinase 56 54 L CK-MB (CK-2) Cancelled Troponin I Cancelled NT-Pro-B Natriuret Pep 07/22/19 07/23/19 07/23/19 21:18 02:59 02:59 Creatine Kinase 46 L CK-MB (CK-2) 0.86 0.63 Troponin I < 0.012 < 0.012 NT-Pro-B Natriuret Pep 07/23/19 07/24/19 02:59 05:52 Creatine Kinase CK-MB (CK-2) Troponin I NT-Pro-B Natriuret Pep 95 122 EKG Comments: Telemetry shows sinus rhythm, no sustained tachycardia or bradycardia noted Impressions: Head MRI 07/22/19 00:00 IMPRESSION: Left mastoid effusion. Correlate for mastoiditis. EVIDENCE OF ACUTE STROKE: NO. Chest X-Ray 07/22/19 11:26 IMPRESSION: Cardiomegaly and patchy bibasilar opacities - correlate with clinical findings to exclude pneumonia. Head CT 07/22/19 12:03 IMPRESSION: 1. No acute intracranial abnormality. 2. Partial opacification of the left mastoid air cells. EVIDENCE OF ACUTE STROKE: NO. Chest CT 07/22/19 12:25 IMPRESSION: Mosaic attenuation of the lung parenchyma could represent a component of air trapping in the setting of small airway disease. Ribs w/Chest X-Ray 07/24/19 00:00 IMPRESSION: 1. Acute fractures of the left 6th, 7th and 8th ribs. 2. Cardiomegaly and Rehan B lines in the right base - correlate with clinical findings to exclude CHF. 3. Left pleural effusion that could be posttraumatic in etiology. Assessment & Plan - Diagnosis (1) Hypotension Qualifiers: Hypotension type: unspecified hypotension type Qualified Code(s): I95.9 - Hypotension, unspecified Is this a current diagnosis for this admission?: Yes (2) COPD (chronic obstructive pulmonary disease) Qualifiers: COPD type: unspecified COPD Qualified Code(s): J44.9 - Chronic obstructive pulmonary disease, unspecified Is this a current diagnosis for this admission?: Yes (3) Chest pain Qualifiers: Chest pain type: unspecified Qualified Code(s): R07.9 - Chest pain, unspecified Is this a current diagnosis for this admission?: Yes (4) Coronary artery disease Qualifiers: Coronary Disease-Associated Artery/Lesion type: [place] artery Is this a current diagnosis for this admission?: Yes (5) Dehydration Is this a current diagnosis for this admission?: Yes - Notes Notes: Continues with intermittent chest pain but it is clearly musculoskeletal. A 2D echo was ordered in view of history of known CAD and to look for any pericardial effusion. Patient was reassured since his EKGs and cardiac enzymes has been relatively unremarkable. - Time Time with patient: 15-25 minutes Medications reviewed and adjusted accordingly: Yes
[2019-07-25 04:33] LABS: ABSOLUTE BASOPHILS # (AUTO) 0.1 10^3/uL (0.0-0.2); ABSOLUTE EOSINOPHILS # (AUTO) 0.3 10^3/uL (0.0-0.6); ABSOLUTE LYMPHOCYTES (AUTO) 1.9 10^3/uL (0.5-4.7); ABSOLUTE MONOCYTES (AUTO) 0.6 10^3/uL (0.1-1.4); ABSOLUTE NEUT (AUTO) 3.4 10^3/uL (1.7-8.2); EOSINOPHILS % (AUTO) 4.5 % (0-6); HEMATOCRIT 36.9 % (37.9-51.0); HEMOGLOBIN 12.5 g/dL (13.5-17.0); LYMPHOCYTES % (AUTO) 30.2 % (13-45); MEAN CORPUSCULAR HEMOGLOBIN 27.8 pg (27.0-33.4); MEAN CORPUSCULAR HGB CONC 33.9 g/dL (32.0-36.0); MEAN CORPUSCULAR VOLUME 82 fl (80-97); MONOCYTES % (AUTO) 9.2 % (3-13); PLATELET COUNT 197 10^3/uL (150-450); RED BLOOD COUNT 4.49 10^6/uL (4.35-5.55); SEGMENTED NEUTROPHILS % (AUTO) 55.1 % (42-78); TOTAL CELLS COUNTED % (AUTO) 100 %; WHITE BLOOD COUNT 6.1 10^3/uL (4.0-10.5)
[2019-07-25 04:50] LABS: ANION GAP 11 (5-19); BLOOD UREA NITROGEN 15 mg/dL (7-20); CARBON DIOXIDE 24 mmol/L (22-30); CHLORIDE 105 mmol/L (98-107); GLUCOSE 143 mg/dL (75-110); POTASSIUM 4.2 mmol/L (3.6-5.0)
[2019-07-25] MEDS: TRAMADOL HCL 50 MG TABLET PO SCH ×3 (05:28→21:49)
[2019-07-25] MEDS: PANTOPRAZOLE SODIUM 40 MG TABLET.DR PO SCH (05:28)
[2019-07-25] MEDS: CEFEPIME 1 GM/D5W RTU 1 GM/50 ML RTUPB IV SCH ×2 (09:32→21:50)
[2019-07-25] MEDS: FINASTERIDE 5 MG TABLET PO SCH (09:32)
[2019-07-25] MEDS: ISOSORBIDE MONONITRATE 60 MG TAB.ER.24H PO SCH (09:32)
[2019-07-25] MEDS: AMLODIPINE BESYLATE 5 MG TABLET PO SCH (09:32)
[2019-07-25] MEDS: SITAGLIPTIN PHOSPHATE 50 MG TABLET PO SCH (09:32)
[2019-07-25] MEDS: MAGNESIUM OXIDE 400 MG TABLET PO SCH (09:32)
[2019-07-25] MEDS: LISINOPRIL 5 MG TABLET PO SCH (09:32)
[2019-07-25] MEDS: INSULIN LISPRO 100 UNIT/ML 3 ML VIAL SUBCUT SCH ×4 (09:33→21:50)
[2019-07-25] MEDS: METOPROLOL TARTRATE 25 MG TABLET PO SCH ×2 (09:33→21:50)
[2019-07-25] MEDS: ENOXAPARIN SODIUM INJ 40 MG/0.4 ML DISP.SYRIN SUBCUT SCH (09:33)
[2019-07-25] MEDS: ASPIRIN 81 MG TABLET, ENT COATED PO SCH (09:33)
[2019-07-25] MEDS: PHARMACY COMMUNICATION ORDER MC SCH (09:34)
[2019-07-25] MEDS: LEVOFLOXACIN 500 MG/D5W RTU 500 MG/100 ML RTUPB IV SCH (11:54)
[2019-07-25] MEDS: MONTELUKAST SODIUM 10 MG TABLET PO SCH (17:19)
[2019-07-25] MEDS: INSULIN GLARGINE,HUM.REC.ANLOG 1,000 UNIT/10 ML VIAL SUBCUT SCH (17:19)
--- NOTE | 2019-07-25 18:04 | PDOC PROGRESS REPORT ---
Subjective Progress Note for:: 07/25/19 Subjective:: Patient seen by the bedside, he was admitted for the management of acute kidney injury, pneumonia, encephalopathy, he was seen by multiple specialties, he has no new complaint today Reason For Visit: DIZZINESS, DEHYDRATION, RENAL FAILURE Physical Exam Vital Signs: Temp Pulse Resp BP Pulse Ox 98.4 F 58 L 16 148/74 H 94 07/25/19 15:11 07/25/19 15:11 07/25/19 15:11 07/25/19 15:11 07/25/19 15:11 Intake & Output 07/24/19 07/25/19 07/26/19 06:59 06:59 06:59 Intake Total 1540 2188 815 Output Total 2250 200 300 Balance -710 1988 515 Weight 89.7 kg 89.4 kg General appearance: PRESENT: no acute distress Eye exam: PRESENT: PERRLA Respiratory exam: PRESENT: clear to auscultation raya Cardiovascular exam: PRESENT: +S1, +S2 GI/Abdominal exam: PRESENT: soft Neurological exam: PRESENT: alert, CN II-XII grossly intact Results Laboratory Results: 07/25/19 04:15 07/25/19 04:15 07/25/19 07/25/19 04:15 04:15 WBC 6.1 RBC 4.49 Hgb 12.5 L Hct 36.9 L MCV 82 MCH 27.8 MCHC 33.9 RDW 14.0 Plt Count 197 Seg Neutrophils % 55.1 Sodium 139.7 Potassium 4.2 Chloride 105 Carbon Dioxide 24 Anion Gap 11 BUN 15 Creatinine 0.74 Est GFR ( Amer) > 60 Glucose 143 H Calcium 9.0 Magnesium 2.1 07/23/19 18:10 Sputum Gram Stain - Final 07/23/19 00:05 Clean Catch Midstream Urine Culture - Final NO GROWTH 2 DAYS 07/22/19 07/22/19 07/22/19 11:18 11:18 13:56 Creatine Kinase 54 L CK-MB (CK-2) 0.76 Troponin I < 0.012 < 0.012 NT-Pro-B Natriuret Pep 07/22/19 07/22/19 07/22/19 15:48 21:18 21:18 Creatine Kinase 56 54 L CK-MB (CK-2) Cancelled Troponin I Cancelled NT-Pro-B Natriuret Pep 07/22/19 07/23/19 07/23/19 21:18 02:59 02:59 Creatine Kinase 46 L CK-MB (CK-2) 0.86 0.63 Troponin I < 0.012 < 0.012 NT-Pro-B Natriuret Pep 07/23/19 07/24/19 07/25/19 02:59 05:52 04:15 Creatine Kinase CK-MB (CK-2) Troponin I NT-Pro-B Natriuret Pep 95 122 196 Impressions: Head MRI 07/22/19 00:00 IMPRESSION: Left mastoid effusion. Correlate for mastoiditis. EVIDENCE OF ACUTE STROKE: NO. Chest X-Ray 07/22/19 11:26 IMPRESSION: Cardiomegaly and patchy bibasilar opacities - correlate with clinical findings to exclude pneumonia. Head CT 07/22/19 12:03 IMPRESSION: 1. No acute intracranial abnormality. 2. Partial opacification of the left mastoid air cells. EVIDENCE OF ACUTE STROKE: NO. Chest CT 07/22/19 12:25 IMPRESSION: Mosaic attenuation of the lung parenchyma could represent a co mponent of air trapping in the setting of small airway disease. Ribs w/Chest X-Ray 07/24/19 00:00 IMPRESSION: 1. Acute fractures of the left 6th, 7th and 8th ribs. 2. Cardiomegaly and Rehan B lines in the right base - correlate with clinical findings to exclude CHF. 3. Left pleural effusion that could be posttraumatic in etiology. Assessment & Plan - Diagnosis (1) Acute kidney failure Qualifiers: Acute renal failure type: unspecified Qualified Code(s): N17.9 - Acute kidney failure, unspecified Is this a current diagnosis for this admission?: Yes (2) Pneumonia Qualifiers: Pneumonia type: due to unspecified organism Laterality: unspecified late rality Lung location: unspecified part of lung Qualified Code(s): J18.9 - Pneumonia, unspecified organism Is this a current diagnosis for this admission?: Yes (3) Encephalopathy Is this a current diagnosis for this admission?: Yes - Plan Summary Plan Summary: Continue present treatment
[2019-07-25] MEDS ORDERED: INSULIN GLARGINE,HUM.REC.ANLOG 1,000 UNIT/10 ML VIAL (PYX) SUBCUT ONE (21:47)
[2019-07-25] MEDS: ATORVASTATIN CALCIUM 40 MG TABLET PO SCH (21:49)
[2019-07-25] MEDS: LIDOCAINE 5% (700 MG) TRANSDERMAL ADH..PATCH TP SCH (21:49)
[2019-07-26] MEDS: TRAMADOL HCL 50 MG TABLET PO SCH ×3 (05:16→21:23)
[2019-07-26] MEDS: PANTOPRAZOLE SODIUM 40 MG TABLET.DR PO SCH (05:16)
[2019-07-26 05:26] LABS: ANION GAP 8 (5-19); BLOOD UREA NITROGEN 17 mg/dL (7-20); CALCIUM 9.1 mg/dL (8.4-10.2); CARBON DIOXIDE 27 mmol/L (22-30); CHLORIDE 103 mmol/L (98-107); GLUCOSE 122 mg/dL (75-110)
[2019-07-26] MEDS: INSULIN LISPRO 100 UNIT/ML 3 ML VIAL SUBCUT SCH ×4 (08:49→21:32)
[2019-07-26] MEDS: CEFEPIME 1 GM/D5W RTU 1 GM/50 ML RTUPB IV SCH ×2 (09:36→21:23)
[2019-07-26] MEDS: METOPROLOL TARTRATE 25 MG TABLET PO SCH ×2 (09:37→21:24)
[2019-07-26] MEDS: SITAGLIPTIN PHOSPHATE 50 MG TABLET PO SCH (09:37)
[2019-07-26] MEDS: ENOXAPARIN SODIUM INJ 40 MG/0.4 ML DISP.SYRIN SUBCUT SCH (09:37)
[2019-07-26] MEDS: MAGNESIUM OXIDE 400 MG TABLET PO SCH (09:37)
[2019-07-26] MEDS: AMLODIPINE BESYLATE 5 MG TABLET PO SCH (09:37)
[2019-07-26] MEDS: LISINOPRIL 5 MG TABLET PO SCH (09:37)
[2019-07-26] MEDS: ISOSORBIDE MONONITRATE 60 MG TAB.ER.24H PO SCH (09:37)
[2019-07-26] MEDS: FINASTERIDE 5 MG TABLET PO SCH (09:37)
[2019-07-26] MEDS: ASPIRIN 81 MG TABLET, ENT COATED PO SCH (09:37)
[2019-07-26] MEDS: PHARMACY COMMUNICATION ORDER MC SCH (09:38)
[2019-07-26] MEDS: LEVOFLOXACIN 500 MG/D5W RTU 500 MG/100 ML RTUPB IV SCH (12:13)
--- NOTE | 2019-07-26 17:14 | PDOC PROGRESS REPORT ---
Subjective Progress Note for:: 07/26/19 Subjective:: Patient seen by the bedside no new complaints Reason For Visit: DIZZINESS, DEHYDRATION, RENAL FAILURE Physical Exam Vital Signs: Temp Pulse Resp BP Pulse Ox 97.7 F 57 L 18 146/76 H 94 07/26/19 12:03 07/26/19 14:00 07/26/19 03:58 07/26/19 12:03 07/26/19 12:03 Intake & Output 07/25/19 07/26/19 07/27/19 06:59 06:59 06:59 Intake Total 2188 1385 150 Output Total 200 300 Balance 1987 1085 150 Weight 89.4 kg 87.3 kg General appearance: PRESENT: no acute distress Eye exam: PRESENT: PERRLA Respiratory exam: PRESENT: clear to auscultation raya Cardiovascular exam: PRESENT: +S1, +S2 GI/Abdominal exam: PRESENT: soft Neurological exam: PRESENT: alert Results Laboratory Results: 07/25/19 04:15 07/26/19 04:31 07/26/19 04:31 Sodium 138.4 Potassium 4.0 Chloride 103 Carbon Dioxide 27 Anion Gap 8 BUN 17 Creatinine 0.79 Est GFR ( Amer) > 60 Glucose 122 H Calcium 9.1 07/23/19 18:10 Sputum Gram Stain - Final 07/23/19 18:10 Sputum Sputum Culture - Final NORMAL MIKEL 07/22/19 07/22/19 07/22/19 11:18 11:18 13:56 Creatine Kinase 54 L CK-MB (CK-2) 0.76 Troponin I < 0.012 < 0.012 NT-Pro-B Natriuret Pep 07/22/19 07/22/19 07/22/19 15:48 21:18 21:18 Creatine Kinase 56 54 L CK-MB (CK-2) Cancelled Troponin I Cancelled NT-Pro-B Natriuret Pep 07/22/19 07/23/19 07/23/19 21:18 02:59 02:59 Creatine Kinase 46 L CK-MB (CK-2) 0.86 0.63 Troponin I < 0.012 < 0.012 NT-Pro-B Natriuret Pep 07/23/19 07/24/19 07/25/19 02:59 05:52 04:15 Creatine Kinase CK-MB (CK-2) Troponin I NT-Pro-B Natriuret Pep 95 122 196 Impressions: Head MRI 07/22/19 00:00 IMPRESSION: Left mastoid effusion. Correlate for mastoiditis. EVIDENCE OF ACUTE STROKE: NO. Chest X-Ray 07/22/19 11:26 IMPRESSION: Cardiomegaly and patchy bibasilar opacities - correlate with clinical findings to exclude pneumonia. Head CT 07/22/19 12:03 IMPRESSION: 1. No acute intracranial abnormality. 2. Partial opacification of the left mastoid air cells. EVIDENCE OF ACUTE STROKE: NO. Chest CT 07/22/19 12:25 IMPRESSION: Mosaic attenuation of the lung parenchyma could represent a component of air trapping in the setting of small airway disease. Ribs w/Chest X-Ray 07/24/19 00:00 IMPRESSION: 1. Acute fractures of the left 6th, 7th and 8th ribs. 2. Cardiomegaly and Rehan B lines in the right base - correlate with clinical findings to exclude CHF. 3. Left pleural effusion that could be posttraumatic in etiology. Assessment & Plan - Diagnosis (1) Acute kidney failure Qualifiers: Acute renal failure type: unspecified Is this a current diagnosis for this admission?: Yes (2) Pneumonia Qualifiers: Pneumonia type: due to unspecified organism Laterality: unspecified laterality Lung location: unspecified part of lung Qualified Code(s): J18.9 - Pneumonia, unspecified organism Is this a current diagnosis for this admission?: Yes (3) Encephalopathy Is this a current diagnosis for this admission?: Yes
[2019-07-26] MEDS: MONTELUKAST SODIUM 10 MG TABLET PO SCH (17:20)
[2019-07-26] MEDS: INSULIN GLARGINE,HUM.REC.ANLOG 1,000 UNIT/10 ML VIAL SUBCUT SCH (17:20)
[2019-07-26] MEDS: ATORVASTATIN CALCIUM 40 MG TABLET PO SCH (21:23)
[2019-07-26] MEDS: LIDOCAINE 5% (700 MG) TRANSDERMAL ADH..PATCH TP SCH (21:23)
[2019-07-27] MEDS: PANTOPRAZOLE SODIUM 40 MG TABLET.DR PO SCH (05:20)
[2019-07-27] MEDS: TRAMADOL HCL 50 MG TABLET PO SCH ×3 (05:20→21:30)
[2019-07-27] MEDS: INSULIN LISPRO 100 UNIT/ML 3 ML VIAL SUBCUT SCH ×4 (08:48→21:30)
[2019-07-27] MEDS: METOPROLOL TARTRATE 25 MG TABLET PO SCH ×2 (09:20→21:47)
[2019-07-27] MEDS: ASPIRIN 81 MG TABLET, ENT COATED PO SCH (09:20)
[2019-07-27] MEDS: SITAGLIPTIN PHOSPHATE 50 MG TABLET PO SCH (09:21)
[2019-07-27] MEDS: FINASTERIDE 5 MG TABLET PO SCH (09:21)
[2019-07-27] MEDS: AMLODIPINE BESYLATE 5 MG TABLET PO SCH (09:21)
[2019-07-27] MEDS: ENOXAPARIN SODIUM INJ 40 MG/0.4 ML DISP.SYRIN SUBCUT SCH (09:21)
[2019-07-27] MEDS: MAGNESIUM OXIDE 400 MG TABLET PO SCH (09:21)
[2019-07-27] MEDS: LISINOPRIL 5 MG TABLET PO SCH (09:21)
[2019-07-27] MEDS: ISOSORBIDE MONONITRATE 60 MG TAB.ER.24H PO SCH (09:22)
[2019-07-27] MEDS: CEFEPIME 1 GM/D5W RTU 1 GM/50 ML RTUPB IV SCH ×2 (09:22→21:49)
[2019-07-27 10:13] LABS: ANION GAP 8 (5-19); BLOOD UREA NITROGEN 18 mg/dL (7-20); CALCIUM 9.4 mg/dL (8.4-10.2); CARBON DIOXIDE 26 mmol/L (22-30); CHLORIDE 104 mmol/L (98-107); GLUCOSE 178 mg/dL (75-110); POTASSIUM 4.2 mmol/L (3.6-5.0)
--- NOTE | 2019-07-27 10:24 | PDOC PROGRESS REPORT ---
Subjective Progress Note for:: 07/27/19 Subjective:: Patient is currently doing much better Patient's cough is all improving Since renal function is all resolved Very extensive discussion with patients with the patient's blood sugar is much better even the 50%'s lower dose than patients taking home definitely related to the patient's foot habit which did not follow her diet which require a high dose of insulin Will get the dietitian's consult again She is wants to go home tomorrow not the rehab facility and I think patients can go home tomorrow morning after we dietary consult and discussed with the regarding the diet Reason For Visit: DIZZINESS, DEHYDRATION, RENAL FAILURE Physical Exam Vital Signs: Temp Pulse Resp BP Pulse Ox 98.5 F 62 19 148/71 H 93 07/27/19 03:49 07/27/19 07:00 07/27/19 03:49 07/27/19 03:49 07/27/19 03:49 Intake & Output 07/26/19 07/27/19 07/28/19 06:59 06:59 06:59 Intake Total 1385 200 Output Total 300 1600 Balance 1085 -1400 Weight 87.3 kg 87 kg General appearance: PRESENT: no acute distress, well-developed, well-nourished Head exam: PRESENT: atraumatic, normocephalic Eye exam: PRESENT: conjunctiva pink, EOMI, PERRLA. ABSENT: scleral icterus Ear exam: PRESENT: normal external ear exam Mouth exam: PRESENT: moist, tongue midline Neck exam: PRESENT: full ROM. ABSENT: carotid bruit, JVD, lymphadenopathy, thyromegaly Respiratory exam: PRESENT: clear to auscultation raya Cardiovascular exam: PRESENT: RRR. ABSENT: diastolic murmur, rubs, systolic murmur Pulses: PRESENT: normal dorsalis pedis pul, +2 pedal pulses bilateral Vascular exam: PRESENT: normal capillary refill GI/Abdominal exam: PRESENT: normal bowel sounds, soft. ABSENT: distended, guarding, mass, organolmegaly, rebound, tenderness Rectal exam: PRESENT: deferred Musculoskeletal exam: PRESENT: ambulatory Neurological exam: PRESENT: alert, awake, oriented to person, oriented to place, oriented to time, oriented to situation, CN II-XII grossly intact. ABSENT: motor sensory deficit Psychiatric exam: PRESENT: appropriate affect, normal mood. ABSENT: homicidal ideation, suicidal ideation Skin exam: PRESENT: dry, intact, warm. ABSENT: cyanosis, rash Results Laboratory Results: 07/25/19 04:15 07/27/19 09:17 07/27/19 09:17 Sodium 138.1 Potassium 4.2 Chloride 104 Carbon Dioxide 26 Anion Gap 8 BUN 18 Creatinine 0.88 Est GFR ( Amer) > 60 Glucose 178 H Calcium 9.4 07/22/19 07/22/19 07/22/19 11:18 11:18 13:56 Creatine Kinase 54 L CK-MB (CK-2) 0.76 Troponin I < 0.012 < 0.012 NT-Pro-B Natriuret Pep 07/22/19 07/22/19 07/22/19 15:48 21:18 21:18 Creatine Kinase 56 54 L CK-MB (CK-2) Cancelled Troponin I Cancelled NT-Pro-B Natriuret Pep 07/22/19 07/23/19 07/23/19 21:18 02:59 02:59 Creatine Kinase 46 L CK-MB (CK-2) 0.86 0.63 Troponin I < 0.012 < 0.012 NT-Pro-B Natriuret Pep 07/23/19 07/24/19 07/25/19 02:59 05:52 04:15 Creatine Kinase CK-MB (CK-2) Troponin I NT-Pro-B Natriuret Pep 95 122 196 Impressions: Head MRI 07/22/19 00:00 IMPRESSION: Left mastoid effusion. Correlate for mastoiditis. EVIDENCE OF ACUTE STROKE: NO. Chest X-Ray 07/22/19 11:26 IMPRESSION: Cardiomegaly and patchy bibasilar opacities - correlate with clinical findings to exclude pneumonia. Head CT 07/22/19 12:03 IMPRESSION: 1. No acute intracranial abnormality. 2. Partial opacification of the left mastoid air cells. EVIDENCE OF ACUTE STROKE: NO. Chest CT 07/22/19 12:25 IMPRESSION: Mosaic attenuation of the lung parenchyma could represent a component of air trapping in the setting of small airway disease. Ribs w/Chest X-Ray 07/24/19 00:00 IMPRESSION: 1. Acute fractures of the left 6th, 7th and 8th ribs. 2. Cardiomegaly and Rehan B lines in the right base - correlate with clinical findings to exclude CHF. 3. Left pleural effusion that could be posttraumatic in etiology. Assessment & Plan - Diagnosis (1) Acute kidney injury Is this a current diagnosis for this admission?: Yes Plan: Currently all resolved (2) Hypotension Qualifiers: Hypotension type: unspecified hypotension type Qualified Code(s): I95.9 - Hypotension, unspecified Is this a current diagnosis for this admission?: Yes Plan: Currently all resolved (3) Pneumonia Qualifiers: Pneumonia type: due to unspecified organism Laterality: unspecified laterality Lung location: unspecified part of lung Qualified Code(s): J18.9 - Pneumonia, unspecified organism Is this a current diagnosis for this admission?: Yes Plan: Start the patient on IV antibiotic (4) COPD (chronic obstructive pulmonary disease) Qualifiers: COPD type: unspecified COPD Qualified Code(s): J44.9 - Chronic obstructive pulmonary disease, unspecified Is this a current diagnosis for this admission?: Yes Plan: Continues to PRN nebulizer treatments (5) Chest pain Qualifiers: Chest pain type: unspecified Qualified Code(s): R07.9 - Chest pain, unspec ified Is this a current diagnosis for this admission?: Yes Plan: Due to the refracture currently all stable (6) Coronary artery disease Qualifiers: Coronary Disease-Associated Artery/Lesion type: hopi artery Is this a current diagnosis for this admission?: Yes Plan: Currently all stable (7) Dehydration Is this a current diagnosis for this admission?: Yes Plan: Currently all resolved (8) Hyperglycemia due to type 2 diabetes mellitus Qualifiers: Diabetes mellitus fpc insulin use: with terminal system operator use Qualified Code(s): E11.65 - Type 2 diabetes mellitus with hyperglycemia; Z79.4 - joint terminal attack controller (current) use of insulin Is this a current diagnosis for this admission?: Yes Plan: Currently all stable continues a sliding scale of the Lantus (9) Hyperkalemia Is this a current diagnosis for this admission?: Yes (10) Hyperlipidemia Qualifiers: Hyperlipidemia type: unspecified Qualified Code(s): E78.5 - Hyperlipidemia, unspecified Is this a current diagnosis for this admission?: Yes (11) Sleep apnea syndrome Qualifiers: Is this a current diagnosis for this admission?: Yes Plan: She is noncompliance using the CPAP (12) Syncope Qualifiers: Syncope type: unspecified Qualified Code(s): R55 - Syncope and collapse Is this a current diagnosis for this admission?: Yes - Time Time Spent with patient: 15-24 minutes Medications reviewed and adjusted accordingly: Yes Anticipated discharge: Home Within: within 24 hours - Plan Summary Plan Summary: Continues to current medications with dietary consult
[2019-07-27] MEDS: PHARMACY COMMUNICATION ORDER MC SCH (13:21)
[2019-07-27] MEDS: LEVOFLOXACIN 500 MG/D5W RTU 500 MG/100 ML RTUPB IV SCH (13:24)
[2019-07-27] MEDS: INSULIN GLARGINE,HUM.REC.ANLOG 1,000 UNIT/10 ML VIAL SUBCUT SCH (17:16)
[2019-07-27] MEDS: MONTELUKAST SODIUM 10 MG TABLET PO SCH (17:16)
--- NOTE | 2019-07-27 19:14 | XCELERA REPORT ---
[address] [address] Transthoracic Echocardiogram Report Name: TAHIR FOURNIER Age: 63 yrs Gender: Male : 1955 Patient Status: Inpatient Patient Location: [address] [place] [address] Study Date: 07/23/2019 01:50 PM Height: 69 in Weight: 188 lb BSA: 2.0 m2 Procedure: A complete two-dimensional transthoracic echocardiogram was performed (2D, M-mode, spectral and color flow Doppler). The study was technically adequate with some images being suboptimal in quality. Reason For Study: CP, dyspnea Ordering Physician: JESSI DO Performed By: Dang Bhakta Interpretation Summary The left ventricular ejection fraction is normal. There is mild concentric left ventricular hypertrophy. The left ventricle is grossly normal size. Doppler measurements suggest pseudonormalized left ventricular relaxation, which is associated with grade II/IV or mild to moderate diastolic dysfunction No regional wall motion abnormalities noted. The right ventricular systolic function is normal. The left atrium is mildly dilated. The right atrium is normal in size There is a trace to mild amount of mitral regurgitation There is no mitral valve stenosis. No aortic regurgitation is present. There is no aortic valve stenosis There is a trace or physiologic amount of tricuspid regurgitation Tricuspid regurgitation jet envelope not well defined to measure RV systolic pressure accurately. The aortic root is not well visualized but is probably normal size. The inferior vena cava was not well visualized There is no pericardial effusion. MMode/2D Measurements & Calculations RVDd: 3.2 cm LVIDd: 5.7 cm FS: 41.1 % Ao root diam: 3.1 cm IVSd: 1.0 cm LVIDs: 3.3 cm EDV(Teich): 157.3 ml Ao root area: 7.6 cm2 LVPWd: 1.1 cm ESV(Teich): 45.1 ml EF(Teich): 71.3 % LVOT diam: 1.8 cm LVOT area: 2.5 cm2 Doppler Measurements & Calculations MV E max geovanni: MV dec slope: Ao V2 max: LV V1 max P.2 cm/sec 592.8 cm/sec2 207.3 cm/sec 3.7 mmHg MV A max geovanni: MV dec time: 0.14 sec Ao max PG: LV V1 max: 78.3 cm/sec 17.2 mmHg 95.5 cm/sec MV E/A: 1.1 ZEESHAN(V,D): 1.1 cm2 PA V2 max: PI end-d geovanni: 128.2 cm/sec 109.6 cm/sec PA max P.6 mmHg Left Ventricle The left ventricle is grossly normal size. There is mild concentric left ventricular hypertrophy. The left ventricular ejection fraction is normal. Doppler measurements suggest pseudonormalized left ventricular relaxation, which is associated with grade II/IV or mild to moderate diastolic dysfunction. No regional wall motion abnormalities noted. There is no thrombus. Right Ventricle The right ventricle is grossly normal size. There is normal right ventricular wall thickness. The right ventricular systolic function is normal. Atria The right atrium is normal in size. The left atrium is mildly dilated. Interarterial septum not well visualized and not well dopplered. Cannot comment on ASD/PFO presence. Mitral Valve The mitral valve is grossly normal. There is no mitral valve stenosis. There is a trace to mild amount of mitral regurgitation. Aortic Valve The aortic valve is grossly normal. There is no aortic valve stenosis. No aortic regurgitation is present. Tricuspid Valve The tricuspid valve is not well visualized, but is grossly normal. There is no tricuspid stenosis. There is a trace or physiologic amount of tricuspid regurgitation. Tricuspid regurgitation jet envelope not well defined to measure RV systolic pressure accurately. Pulmonic Valve The pulmonic valve is not well visualized. Great Vessels The aortic root is not well visualized but is probably normal size. The inferior vena cava was not well visualized. Effusions There is no pericardial effusion. : JESSI DO Shyamal
--- NOTE | 2019-07-27 19:24 | PDOC PROGRESS REPORT ---
Subjective Progress Note for:: 07/27/19 Subjective:: Patient admitted with generalized weakness, dizziness. He had a fainting spell few days ago and was admitted to [facility] with negative work-up. He was diagnosed to have hypotension and possible urinary tract infection. A cardiac work-up was not performed. Patient was seen in the office by Dr. Giles today and was noted to be very weak, unsteady and also complained of chest pain. Patient tells me that with the fall few days ago, he had rib x-rays performed which showed some rib fracture on the left side. Patient was admitted for further evaluation and management for generalized weakness and chest pain. Initial cardiac enzymes have been negative 2D echo results were reviewed. It showed normal LVEF. No significant valve disease noted. LVH noted. Reason For Visit: DIZZINESS, DEHYDRATION, RENAL FAILURE Physical Exam Vital Signs: Temp Pulse Resp BP Pulse Ox 98.4 F 60 16 150/69 H 93 07/27/19 08:35 07/27/19 14:00 07/27/19 08:35 07/27/19 08:35 07/27/19 08:35 Intake & Output 07/26/19 07/27/19 07/28/19 06:59 06:59 06:59 Intake Total 1385 200 100 Output Total 300 1600 Balance 1085 -1400 100 Weight 87.3 kg 87 kg Exam: GENERAL: well-nourished and in no acute distress. Alert and oriented x3 HEAD: Atraumatic, normocephalic. EYES: SOPHIA, sclera anicteric, conjunctiva are normal. ENT: Moist mucous membranes. No oral ulcerations or bleeding gums noted. No obvious ear, nose or throat abnormalities noted. NECK: supple without lymphadenopathy. Trachea is central. No cervical or axillary lymphadenopathy noted. Carotids are 2+, JVD WNL LUNGS: Breath sounds clear bilaterally. No wheezes rales or rhonchi noted. No significant dullness noted on percussion. CHEST: Palpation of the chest wall shows left-sided significant chest wall tenderness. 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 ABDOMEN: Soft, no significant tenderness appreciated, normoactive bowel sounds. No guarding, no rebound. No rigidity noted . No masses appreciated. EXTREMITIES: Pedal pulses are 1-2+, no calf tenderness noted. No clubbing or cy anosis. negative pedal edema noted NEUROLOGICAL: Focused neurological exam showed no significant neurologic deficit. Normal speech, no focal weakness appreciated. PSYCH: Normal mood, normal affect. Judgment and insight within normal limits. SKIN: No significant ecchymosis, skin is noted to be warm. MUSCULOSKELETAL EXAM: No significant acute joint swelling noted. Results Laboratory Results: 07/25/19 04:15 07/27/19 09:17 07/27/19 09:17 Sodium 138.1 Potassium 4.2 Chloride 104 Carbon Dioxide 26 Anion Gap 8 BUN 18 Creatinine 0.88 Est GFR ( Amer) > 60 Glucose 178 H Calcium 9.4 07/22/19 13:56 Blood Blood Culture - Final NO GROWTH IN 5 DAYS 07/22/19 11:18 Blood Blood Culture - Final NO GROWTH IN 5 DAYS 07/22/19 07/22/19 07/22/19 11:18 11:18 13:56 Creatine Kinase 54 L CK-MB (CK-2) 0.76 Troponin I < 0.012 < 0.012 NT-Pro-B Natriuret Pep 07/22/19 07/22/19 07/22/19 15:48 21:18 21:18 Creatine Kinase 56 54 L CK-MB (CK-2) Cancelled Troponin I Cancelled NT-Pro-B Natriuret Pep 07/22/19 07/23/19 07/23/19 21:18 02:59 02:59 Creatine Kinase 46 L CK-MB (CK-2) 0.86 0.63 Troponin I < 0.012 < 0.012 NT-Pro-B Natriuret Pep 07/23/19 07/24/19 07/25/19 02:59 05:52 04:15 Creatine Kinase CK-MB (CK-2) Troponin I NT-Pro-B Natriuret Pep 95 122 196 EKG Comments: No sustained tachycardia or bradycardia arrhythmia noted Impressions: Head MRI 07/22/19 00:00 IMPRESSION: Left mastoid effusion. Correlate for mastoiditis. EVIDENCE OF ACUTE STROKE: NO. Chest X-Ray 07/22/19 11:26 IMPRESSION: Cardiomegaly and patchy bibasilar opacities - correlate with clinical findings to exclude pneumonia. Head CT 07/22/19 12:03 IMPRESSION: 1. No acute intracranial abnormality. 2. Partial opacification of the left mastoid air cells. EVIDENCE OF ACUTE STROKE: NO. Chest CT 07/22/19 12:25 IMPRESSION: Mosaic attenuation of the lung parenchyma could represent a component of air trapping in the setting of small airway disease. Ribs w/Chest X-Ray 07/24/19 00:00 IMPRESSION: 1. Acute fractures of the left 6th, 7th and 8th ribs. 2. Cardiomegaly and Rehan B lines in the right base - correlate with clinical findings to exclude CHF. 3. Left pleural effusion that could be posttraumatic in etiology. Assessment & Plan - Diagnosis (1) Hypotension Qualifiers: Hypotension type: unspecified hypotension type Qualified Code(s): I95.9 - Hypotension, unspecified Is this a current diagnosis for this admission?: Yes (2) COPD (chronic obstructive pulmonary disease) Qualifiers: COPD type: unspecified COPD Qualified Code(s): J44.9 - Chronic obstructive pulmonary disease, unspecified Is this a current diagnosis for this admission?: Yes (3) Chest pain Qualifiers: Chest pain type: unspecified Qualified Code(s): R07.9 - Chest pain, unspecified Is this a current diagnosis for this admission?: Yes (4) Coronary artery disease Qualifiers: Coronary Disease-Associated Artery/Lesion type: venetie ira artery Is this a current diagnosis for this admission?: Yes (5) Dehydration Is this a current diagnosis for this admission?: Yes - Notes Notes: Patient showing gradual improvement. Chest pain has significantly improved. Renal functions has improved. Chest pain felt musculoskeletal. He was initially scheduled to go to rehab center but now wants to go home. Patient has ambulated without any difficulty. Patient advised to report any abnormal symptoms. Patient advised to follow-up with me and corporate auditor. - Time Time with patient: 15-25 minutes Medications reviewed and adjusted accordingly: Yes
[2019-07-27] MEDS: ATORVASTATIN CALCIUM 40 MG TABLET PO SCH (21:30)
[2019-07-27] MEDS: LIDOCAINE 5% (700 MG) TRANSDERMAL ADH..PATCH TP SCH (21:36)
[2019-07-28] MEDS ORDERED: AMLODIPINE BESYLATE 5 MG TABLET PO ONE (00:30)
[2019-07-28] MEDS: PANTOPRAZOLE SODIUM 40 MG TABLET.DR PO SCH (05:49)
[2019-07-28] MEDS: TRAMADOL HCL 50 MG TABLET PO SCH (05:49)
[2019-07-28 08:10] VITALS: BP 160/73
--- NOTE | 2019-07-28 10:51 | PDOC DISCHARGE SUMMARY ---
General - Admit/Disc Date/PCP Admission Date/Primary Care Provider: 07/22/19 14:00 ZAIRE GEIGER MD Discharge Date: 07/28/19 - Discharge Diagnosis (1) Acute kidney injury Is this a current diagnosis for this admission?: Yes Summary: Currently all resolvedDue to the dehydration's (2) Hypotension Is this a current diagnosis for this admission?: Yes Summary: Currently all resolved (3) Pneumonia Is this a current diagnosis for this admission?: Yes Summary: Currently all resolving (4) COPD (chronic obstructive pulmonary disease) Is this a current diagnosis for this admission?: Yes Summary: Continues to inhaler follow with the Dr. Cole as outpatient (5) Chest pain Is this a current diagnosis for this admission?: Yes Summary: Currently all resolved due to the rib-fractures (6) Coronary artery disease Is this a current diagnosis for this admission?: Yes Summary: By Dr. Ortega all work-up is stable (7) Dehydration Is this a current diagnosis for this admission?: Yes Summary: Currently all resolved (8) Hyperglycemia due to type 2 diabetes mellitus Is this a current diagnosis for this admission?: Yes Summary: Most likely due to the noncompliance of the diet While patients in the hospital given the patient's require less than 50% of the dose of insulin and blood sugar was stable when patients go home require very high dose of insulin and still unstable as most likely related to the diets (9) Hyperkalemia Is this a current diagnosis for this admission?: Yes Summary: Currently all resolved (10) Hyperlipidemia Is this a current diagnosis for this admission?: Yes Summary: Continues to current medications (11) Sleep apnea syndrome Is this a current diagnosis for this admission?: Yes Summary: Continues a CPAP (12) Syncope Is this a current diagnosis for this admission?: Yes Summary: His heart work is stable's carotid Doppler was recently done was all stable's most likely due to the hyperglycemia - Additional Information Discharge Diet: Diabetic Discharge Activity: Activity As Tolerated Prescriptions: Levofloxacin [Levaquin 500 mg Tablet] 500 mg PO DAILY #5 tablet Tramadol HCl [Ultram 50 mg Tablet] 50 mg PO Q6HP PRN #30 tablet PRN Reason: Home Medications: Albuterol Sulfate [Proair HFA Inhalation Aerosol 8.5 gm MDI] 2 puff IH Q4HP PRN 07/22/19 Amlodipine Besylate [Norvasc 5 mg Tablet] 5 mg PO DAILY 07/22/19 Aspirin [Adult Low Dose Aspirin EC] 81 mg PO DAILY 07/22/19 Atorvastatin Calcium [Lipitor 40 mg Tablet] 40 mg PO QHS 07/22/19 Fenofibrate Nanocrystallized [Tricor 145 mg Tablet] 145 mg PO DAILY 07/22/19 Finasteride [Proscar 5 mg Tablet] 5 mg PO DAILY 07/22/19 Gabapentin [Neurontin 300 mg Capsule] 300 mg PO Q12 07/22/19 Isosorbide Mononitrate [Imdur 60 mg Tablet.er] 60 mg PO DAILY 07/22/19 Levocetirizine Dihydrochloride [Xyzal] 5 mg PO QPM 07/22/19 Linagliptin [Tradjenta] 5 mg PO DAILY 07/22/19 Lisinopril [Zestril] 5 mg PO DAILY 07/22/19 Metoprolol Tartrate [Lopressor 25 mg Tablet] 25 mg PO BID 07/22/19 Montelukast Sodium [Singulair 10 mg Tablet] 10 mg PO QPM 07/22/19 Nitroglycerin [Nitrostat 0.4 mg (1/150 Gr) Tabs 25/Bottle] 0.4 mg SL Q5MP PRN Omeprazole 40 mg PO DAILY 07/22/19 Tamsulosin HCl [Flomax 0.4 mg Cap.sr] 0.4 mg PO QPM 07/22/19 Insulin Aspart [Novolog Flexpen] 10 units SQ TID #0 07/28/19 Insulin Glargine,Hum.rec.anlog [Lantus Insulin 100 Unit/1 ml 10 ml] 55 units SQ QPM #0 07/28/19 Levofloxacin [Levaquin 500 mg Tablet] 500 mg PO DAILY #5 tablet 07/28/19 Tramadol HCl [Ultram 50 mg Tablet] 50 mg PO Q6HP PRN #30 tablet 07/28/19 History of Present Illness History of Present Illness: TAHIR FOURNIER is a 63 year old male There is a 63-year-old male with a significant medical history of a type 2 diabetes and insulin-dependent with the high-dose very noncompliance recent A1c is 11.9 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 do not want to go to the [facility] and also several hospital admissions for the dehydration's history of the gastroparesis history of the chronic kidney disease due to the dehydration's and uncontrolled diabetes and also history of the coronary disease status post stent placement hypertension's hyperlipidemiaCurrently [facility] of the fall was syncopal type episodes patient had a CT head and other test was done and told the patient has some fracture in the ribs but other than that suggested dehydration and given some IV fluid and discharge it Patient is came to the office with a complaining of very dizzy very unstable ga it not feeling well patient's blood pressure was also lower and at this point patient looks like more dehydrated and dizzy feeling called EMS and sent the patient to the emergency department In the emergency department initial CT of the head was negative CT of the chest was possible pneumonia and patient's also found acute renal failure with hyperkalemia Patient's blood sugar was also low Patient's blood pressure is also low he is denied any chest pain but mostly complaining of left-sided chest wall contusion pain denied any short of breath Discussed with the and the bedside to be noncompliance with the elevated blood sugars and uncontrolled other medical conditions lead to multiple com plications We will consult the cardiology with the left-sided chest pains and consult nephrology with this recurrent renal failure most likely due to the uncontrolled blood sugars and some kind of insulin resistance he had a CT abdomen pelvis done in the last January for the kidney was all stable Patient also see Dr. Victor in [facility] Hospital Course Hospital Course: This is a 63-year-old male with the multiple medical problem as above recently fallen a refracture on the left side came to the office with a complaint of left-sided pain unstable gait called the EMS sent to the emergency department initial CT of the head Negative for any acute strokes and a chest x-ray suggestive most likely pneumonia And admitting in the hospital underwent for the MRI of the head was negative for any acute findings patient seen by the cardiology of the chest pains is all stable echocardiograms patient seen by the pulmonary and patients also found to be acute renal failure hyperkalemia seen by the nephrology Since all hyperkalemia is resolved patient hypertensions is also resolved and renal failure is also resolved Was treated with a lidocaine patch and tramadol for the reflections and also started on antibiotic for pneumonia also resolving His p.o. intake is good patient is ambulate without any problems His blood sugar is under well controlled with the half dose of the insulin requirement due to the well-controlled diet at home patients not for other diet Dietary consult was placed patient's and is educated about the diabetic diet again and again Very extensive discussion with patient and regarding the patient's current conditions continues to follow with the diet and compliance with the medications In office in 1 week Physical Exam Vital Signs: Temp Pulse Resp BP Pulse Ox 98.6 F 60 16 178/93 H 96 07/28/19 08:07 07/28/19 08:07 07/28/19 08:07 07/28/19 08:07 07/28/19 08:07 Intake & Output 07/27/19 07/28/19 07/29/19 06:59 06:59 06:59 Intake Total 200 947 Output Total 1600 750 Balance -1400 197 Weight 87 kg 86.9 kg General appearance: PRESENT: no acute distress, well-developed, well-nourished Head exam: PRESENT: atraumatic, normocephalic Eye exam: PRESENT: conjunctiva pink, EOMI, PERRLA. ABSENT: scleral icterus Ear exam: PRESENT: normal external ear exam Mouth exam: PRESENT: moist, tongue midline Neck exam: PRESENT: full ROM. ABSENT: carotid bruit, JVD, lymphadenopathy, thyromegaly Respiratory exam: PRESENT: clear to auscultation raya Cardiovascular exam: PRESENT: RRR. ABSENT: diastolic murmur, rubs, systolic murmur Pulses: PRESENT: normal dorsalis pedis pul, +2 pedal pulses bilateral Vascular exam: PRESENT: normal capillary refill GI/Abdominal exam: PRESENT: normal bowel sounds, soft. ABSENT: distended, guarding, mass, organolmegaly, rebound, tenderness Rectal exam: PRESENT: deferred Musculoskeletal exam: PRESENT: ambulatory Neurological exam: PRESENT: alert, awake, oriented to person, oriented to place, oriented to time, oriented to situation, CN II-XII grossly intact. ABSENT: motor sensory deficit Psychiatric exam: PRESENT: appropriate affect, normal mood. ABSENT: homicidal ideation, suicidal ideation Skin exam: PRESENT: dry, intact, warm. ABSENT: cyanosis, rash Results Laboratory Results: 07/25/19 04:15 07/27/19 09:17 07/22/19 13:56 Blood Blood Culture - Final NO GROWTH IN 5 DAYS 07/22/19 11:18 Blood Blood Culture - Final NO GROWTH IN 5 DAYS 07/22/19 07/22/19 07/22/19 11:18 11:18 13:56 Creatine Kinase 54 L CK-MB (CK-2) 0.76 Troponin I < 0.012 < 0.012 NT-Pro-B Natriuret Pep 07/22/19 07/22/19 07/22/19 15:48 21:18 21:18 Creatine Kinase 56 54 L CK-MB (CK-2) Cancelled Troponin I Cancelled NT-Pro-B Natriuret Pep 07/22/19 07/23/19 07/23/19 21:18 02:59 02:59 Creatine Kinase 46 L CK-MB (CK-2) 0.86 0.63 Troponin I < 0.012 < 0.012 NT-Pro-B Natriuret Pep 07/23/19 07/24/19 07/25/19 02:59 05:52 04:15 Creatine Kinase CK-MB (CK-2) Troponin I NT-Pro-B Natriuret Pep 95 122 196 Impressions: Head MRI 07/22/19 00:00 IMPRESSION: Left mastoid effusion. Correlate for mastoiditis. EVIDENCE OF ACUTE STROKE: NO. Chest X-Ray 07/22/19 11:26 IMPRESSION: Cardiomegaly and patchy bibasilar opacities - correlate with clinical findings to exclude pneumonia. Head CT 07/22/19 12:03 IMPRESSION: 1. No acute intracranial abnormality. 2. Partial opacification of the left mastoid air cells. EVIDENCE OF ACUTE STROKE: NO. Chest CT 07/22/19 12:25 IMPRESSION: Mosaic attenuation of the lung parenchyma could represent a component of air trapping in the setting of small airway disease. Ribs w/Chest X-Ray 07/24/19 00:00 IMPRESSION: 1. Acute fractures of the left 6th, 7th and 8th ribs. 2. Cardiomegaly and Rehan B lines in the right base - correlate with clinical findings to exclude CHF. 3. Left pleural effusion that could be posttraumatic in etiology. Qualifiers - * PATIENT BEING DISCHARGED WITH ANY OF THE FOLLOWING DIAGNOSIS: No VTE patient discharged on overlapping Therapy?: Yes Acute Heart Failure - Is this a Heart Failure Patient?: No Plan Time Spent: Greater than 30 Minutes - Discharge home with a stable conditions very strict instructions given with the compliance of the diets take the insulins properly as prescribed follow outpatients cardiology and pulmonary
== END 2019-07-28 09:16 | disposition home health service (06) | DRG 682 ==
LOC: ER 10:53 → EH 14:00 → 3S 21:33
PROVIDERS: ADMIT Family Medicine; ATTEND Family Medicine
DX: N17.9 Acute kidney failure, unspecified (principal); J18.9 Pneumonia, unspecified organism; J44.0 Chronic obstructive pulmonary disease with (acute) lower respiratory infection; E86.0 Dehydration; J44.9 Chronic obstructive pulmonary disease, unspecified; E87.5 Hyperkalemia; I95.9 Hypotension, unspecified; R55 Syncope and collapse; S20.212D Contusion of left front wall of thorax, subsequent encounter; S22.42XD Multiple fractures of ribs, left side, subsequent encounter for fracture with routine healing; W19.XXXD Unspecified fall, subsequent encounter; E11.65 Type 2 diabetes mellitus with hyperglycemia; E11.22 Type 2 diabetes mellitus with diabetic chronic kidney disease; I12.9 Hypertensive chronic kidney disease with stage 1 through stage 4 chronic kidney disease, or unspecified chronic kidney disease; N18.9 Chronic kidney disease, unspecified; E78.5 Hyperlipidemia, unspecified; G47.30 Sleep apnea, unspecified; I25.10 Atherosclerotic heart disease of native coronary artery without angina pectoris; K21.9 Gastro-esophageal reflux disease without esophagitis; N40.0 Benign prostatic hyperplasia without lower urinary tract symptoms; E11.43 Type 2 diabetes mellitus with diabetic autonomic (poly)neuropathy; K31.84 Gastroparesis; M19.90 Unspecified osteoarthritis, unspecified site; Z87.891 Personal history of nicotine dependence; Z95.5 Presence of coronary angioplasty implant and graft; Z82.3 Family history of stroke; Z83.3 Family history of diabetes mellitus; Z79.51 Long term (current) use of inhaled steroids; Z79.82 Long term (current) use of aspirin; Z79.4 Long term (current) use of insulin; Z79.899 Other long term (current) drug therapy; Z88.8 Allergy status to other drugs, medicaments and biological substances; Z91.11 Patient's noncompliance with dietary regimen
CPT/HCPCS: 36415; 70450; 70551; 71045; 71250; 80048; 80053; 80307; 81001; 81332; 82550; 82553; 82803; 82962; 83605; 83690; 83735; 83880; 84132; 84443; 84484; 85025; 85610; 87040; 87070; 87086; 87205; 93005; 93010; 93306; 94640; 94660; 94799; 96361; 96365; 96368; 96375; 99291; J0610; J0692; J1650; J1815; J1956; J2310; J2405; J3475; J3490; J7030; J7620

== ENCOUNTER → 2019-08-12 | Outpatient (CLI) | payer MEDICAID | LOC: OD 15:25 | PROVIDERS: ATTEND Registered Nurse | DX: R94.2 Abnormal results of pulmonary function studies (principal) | CPT/HCPCS: 36415; 86021; 86225; 86235; 86430 ==

== ENCOUNTER 2019-10-05 08:53 | Emergency (ER) | payer MEDICAID ==
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
[2019-10-05 09:58] LABS: ABSOLUTE BASOPHILS # (AUTO) 0.1 10^3/uL (0.0-0.2); ABSOLUTE EOSINOPHILS # (AUTO) 0.3 10^3/uL (0.0-0.6); ABSOLUTE LYMPHOCYTES (AUTO) 1.9 10^3/uL (0.5-4.7); ABSOLUTE MONOCYTES (AUTO) 0.5 10^3/uL (0.1-1.4); ABSOLUTE NEUT (AUTO) 2.1 10^3/uL (1.7-8.2); BASOPHILS % (AUTO) 1.1 % (0-2); EOSINOPHILS % (AUTO) 6.4 % (0-6); HEMATOCRIT 39.9 % (37.9-51.0); HEMOGLOBIN 13.1 g/dL (13.5-17.0); LYMPHOCYTES % (AUTO) 37.8 % (13-45); MEAN CORPUSCULAR HEMOGLOBIN 27.7 pg (27.0-33.4); MEAN CORPUSCULAR HGB CONC 32.8 g/dL (32.0-36.0); MEAN CORPUSCULAR VOLUME 84 fl (80-97); MONOCYTES % (AUTO) 10.9 % (3-13); PLATELET COUNT 233 10^3/uL (150-450); RED BLOOD COUNT 4.73 10^6/uL (4.35-5.55); RED CELL DISTRIBUTION WIDTH 14.2 % (11.5-14.0); SEGMENTED NEUTROPHILS % (AUTO) 43.8 % (42-78); TOTAL CELLS COUNTED % (AUTO) 100 %; WHITE BLOOD COUNT 4.9 10^3/uL (4.0-10.5)
[2019-10-05 10:19] LABS: ALBUMIN 4.3 g/dL (3.5-5.0); ALKALINE PHOSPHATASE 109 U/L (38-126); ANION GAP 9 (5-19); ASPARTATE AMINO TRANSFERASE 22 U/L (17-59); BILIRUBIN,DIRECT 0.2 mg/dL (0.0-0.4); BILIRUBIN,TOTAL 0.3 mg/dL (0.2-1.3); BLOOD UREA NITROGEN 31 mg/dL (7-20); CALCIUM 9.5 mg/dL (8.4-10.2); CARBON DIOXIDE 26 mmol/L (22-30); CHLORIDE 106 mmol/L (98-107); GLUCOSE 251 mg/dL (75-110); POTASSIUM 5.2 mmol/L (3.6-5.0); TOTAL PROTEIN 7.8 g/dL (6.3-8.2)
[2019-10-05 10:30] LABS: NT PRO BNP 89 pg/mL (<125)
[2019-10-05 10:32] LABS: TROPONIN I < 0.012 ng/mL
--- NOTE | 2019-10-05 10:40 | RADIOLOGY REPORT (SQ) ---
EXAM DESCRIPTION: CHEST 2 VIEWS COMPLETED DATE/TIME: 10/05/2019 10:11 am REASON FOR STUDY: dizziness COMPARISON: 07/24/2019. EXAM PARAMETERS: NUMBER OF VIEWS: two views TECHNIQUE: Digital Frontal and Lateral radiographic views of the chest acquired. RADIATION DOSE: NA LIMITATIONS: none FINDINGS: LUNGS AND PLEURA: Chronic interstitial changes. No opacities, masses or pneumothorax. No pleural effusion. MEDIASTINUM AND HILAR STRUCTURES: No masses or contour abnormalities. HEART AND VASCULAR STRUCTURES: Heart upper limits of normal size. No evidence for failure. BONES: No acute findings. Degenerative changes in the spine. HARDWARE: None in the chest. Clips in the upper abdomen. OTHER: No other significant finding. IMPRESSION: NO ACUTE RADIOGRAPHIC FINDING IN THE CHEST. TECHNICAL DOCUMENTATION: JOB ID: [id number] [employer]- All Rights Reserved Reading location - IP/workstation name: [email or web address]
[2019-10-05 10:54] LABS: APPEARANCE,URINE CLEAR; BILIRUBIN,URINE NEGATIVE (NEGATIVE); COLOR,URINE YELLOW; GLUCOSE, URINE >=500 mg/dL (NEGATIVE); KETONES,URINE NEGATIVE (NEGATIVE); PROTEIN,URINE 30 mg/dL (NEGATIVE); URINE SPECIFIC GRAVITY 1.015; UROBILINOGEN,URINE NEGATIVE mg/dL (<2.0)
[2019-10-05] MEDS ORDERED: MECLIZINE HCL 25 MG TABLET PO ONE (12:03)
[2019-10-05] MEDS ORDERED: NORMAL SALINE 1000 ML 1,000 ML IV ONE (12:03)
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
[2019-10-05 14:06] VITALS: BP 194/86
--- NOTE | 2019-10-05 23:48 | EKG REPORT ---
SEVERITY:- ABNORMAL ECG - SINUS OR ECTOPIC ATRIAL RHYTHM ABNORMAL T, CONSIDER ISCHEMIA, LATERAL LEADS : Confirmed by: Jessi Ortega 05-Oct-2019 23:48:01
== END 2019-10-05 14:06 | disposition home or self-care (01) ==
LOC: ER 08:53
DX: H66.002 Acute suppurative otitis media without spontaneous rupture of ear drum, left ear (principal); R42 Dizziness and giddiness; H53.2 Diplopia; N17.9 Acute kidney failure, unspecified; H92.02 Otalgia, left ear; I25.10 Atherosclerotic heart disease of native coronary artery without angina pectoris; I10 Essential (primary) hypertension; J44.9 Chronic obstructive pulmonary disease, unspecified; E11.9 Type 2 diabetes mellitus without complications; Z95.5 Presence of coronary angioplasty implant and graft
CPT/HCPCS: 93005; 99284; 96360; 36415; 82962; 83690; 85025; 80053; 81001; 84484; 83880; 71046; 93010; J7030

== ENCOUNTER → 2019-11-06 | Outpatient (CLI) | payer MEDICAID ==
[2019-11-06 14:55] LABS: ABSOLUTE BASOPHILS # (AUTO) 0.1 10^3/uL (0.0-0.2); ABSOLUTE EOSINOPHILS # (AUTO) 0.3 10^3/uL (0.0-0.6); ABSOLUTE LYMPHOCYTES (AUTO) 1.8 10^3/uL (0.5-4.7); ABSOLUTE MONOCYTES (AUTO) 0.5 10^3/uL (0.1-1.4); ABSOLUTE NEUT (AUTO) 3.1 10^3/uL (1.7-8.2); EOSINOPHILS % (AUTO) 5.5 % (0-6); HEMATOCRIT 40.6 % (37.9-51.0); HEMOGLOBIN 13.4 g/dL (13.5-17.0); LYMPHOCYTES % (AUTO) 30.8 % (13-45); MEAN CORPUSCULAR HEMOGLOBIN 27.2 pg (27.0-33.4); MEAN CORPUSCULAR HGB CONC 32.9 g/dL (32.0-36.0); MEAN CORPUSCULAR VOLUME 83 fl (80-97); MONOCYTES % (AUTO) 9.4 % (3-13); PLATELET COUNT 224 10^3/uL (150-450); RED BLOOD COUNT 4.92 10^6/uL (4.35-5.55); RED CELL DISTRIBUTION WIDTH 14.2 % (11.5-14.0); SEGMENTED NEUTROPHILS % (AUTO) 53.3 % (42-78); TOTAL CELLS COUNTED % (AUTO) 100 %; WHITE BLOOD COUNT 5.9 10^3/uL (4.0-10.5)
[2019-11-06 15:10] LABS: ALBUMIN 4.3 g/dL (3.5-5.0); ALKALINE PHOSPHATASE 90 U/L (38-126); ANION GAP 12 (5-19); ASPARTATE AMINO TRANSFERASE 24 U/L (17-59); BILIRUBIN,DIRECT 0.3 mg/dL (0.0-0.4); BILIRUBIN,TOTAL 0.5 mg/dL (0.2-1.3); BLOOD UREA NITROGEN 29 mg/dL (7-20); CALCIUM 9.6 mg/dL (8.4-10.2); CARBON DIOXIDE 26 mmol/L (22-30); CHLORIDE 104 mmol/L (98-107); GLUCOSE 199 mg/dL (75-110); POTASSIUM 4.8 mmol/L (3.6-5.0); TOTAL PROTEIN 7.7 g/dL (6.3-8.2)
== END ==
LOC: LAB 14:25
PROVIDERS: ATTEND Physician Assistant
DX: R05 Cough (principal); R06.02 Shortness of breath
CPT/HCPCS: 36415; 80053; 83880; 85025

== ENCOUNTER → 2019-11-06 | Outpatient (CLI) | payer MEDICAID ==
--- NOTE | 2019-11-06 15:27 | RADIOLOGY REPORT (SQ) ---
EXAM DESCRIPTION: CHEST 2 VIEWS COMPLETED DATE/TIME: 11/06/2019 1:45 pm REASON FOR STUDY: COUGH (R05) COMPARISON: 10/05/2019 EXAM PARAMETERS: NUMBER OF VIEWS: two views TECHNIQUE: Digital Frontal and Lateral radiographic views of the chest acquired. RADIATION DOSE: NA LIMITATIONS: none FINDINGS: LUNGS AND PLEURA: No opacities, masses or pneumothorax. No pleural effusion. MEDIASTINUM AND HILAR STRUCTURES: No masses or contour abnormalities. HEART AND VASCULAR STRUCTURES: The heart size is borderline. There is no pulmonary edema. BONES: No acute findings. HARDWARE: None in the chest. OTHER: No other significant finding. IMPRESSION: Borderline cardiomegaly without pulmonary edema. TECHNICAL DOCUMENTATION: JOB ID: [id number] [employer]- All Rights Reserved Reading location - IP/workstation name: [email or web address]
== END ==
LOC: RAD 13:22
PROVIDERS: ATTEND Physician Assistant
DX: R05 Cough (principal)
CPT/HCPCS: 71046

== ENCOUNTER → 2019-12-08 | Outpatient (CLI) | payer MEDICARE, MEDICAID ==
--- NOTE | 2019-12-08 11:11 | RADIOLOGY REPORT (SQ) ---
EXAM DESCRIPTION: CT CHEST WITHOUT COMPLETED DATE/TIME: 12/08/2019 9:27 am REASON FOR STUDY: COUGH (R05) R05 COUGH COMPARISON: 07/22/2019 TECHNIQUE: CT scan performed of the chest without intravenous contrast. Images reviewed with lung, soft tissue and bone windows. Reconstructed coronal and sagittal MPR images reviewed. All images st ored on PACS. All CT scanners at this facility use dose modulation, iterative reconstruction, and/or weight based d osing when appropriate to reduce radiation dose to as low as reasonably achievable (ALARA). [facility]: Dose Right [facility]: CareDose [facility]: Dose Right [facility]: Teradose 4D [facility]: [employer] RADIATION DOSE: CT Rad equipment meets quality standard of care and radiation dose reduction techniq ues were employed. CTDIvol: 12.2 mGy. DLP: 442 mGy-cm. mGy. LIMITATIONS: No technical limitations. FINDINGS: LUNGS AND PLEURA: Stable mild paraseptal emphysema. Patchy subsegmental airspace opacitie s in the right upper lobe. There is a background of chronic ground-glass attenuation and mild bronch iectasis in the lower lobes. HILAR AND MEDIASTINAL STRUCTURES: No identified masses or abnormal nodes. No obvious aneurysm. HEART AND VASCULAR STRUCTURES: No aneurysm. No pericardial effusion. UPPER ABDOMEN: No significant findings. Limited exam. THYROID AND OTHER SOFT TISSUES: No masses. No adenopathy. BONES: No significant finding. HARDWARE: None in the chest. OTHER: No other significant findings. IMPRESSION: Right upper lobe pneumonia. There is a background of chronic interstitial lung disease. TECHNICAL DOCUMENTATION: JOB ID: [id number] Quality ID # [id number]: Final reports with documentation of one or more dose reduction techniques (e.g., Au tomated exposure control, adjustment of the mA and/or kV according to patient size, use of iterative reconstruction technique) 2010 [employer]- All Rights Reserved Reading location - IP/workstation name: [email or web address]
== END ==
LOC: RAD 09:14
PROVIDERS: ATTEND Physician Assistant
DX: R05 Cough (principal)
CPT/HCPCS: 71250

== ENCOUNTER 2019-12-24 13:34 | Inpatient (IN) | payer MEDICARE, MEDICAID ==
[2019-12-24 15:29] LABS: ABSOLUTE BASOPHILS # (AUTO) 0.1 10^3/uL (0.0-0.2); ABSOLUTE EOSINOPHILS # (AUTO) 0.1 10^3/uL (0.0-0.6); ABSOLUTE LYMPHOCYTES (AUTO) 1.4 10^3/uL (0.5-4.7); ABSOLUTE MONOCYTES (AUTO) 0.6 10^3/uL (0.1-1.4); ABSOLUTE NEUT (AUTO) 6.6 10^3/uL (1.7-8.2); BASOPHILS % (AUTO) 0.6 % (0-2); EOSINOPHILS % (AUTO) 0.8 % (0-6); HEMATOCRIT 43.7 % (37.9-51.0); HEMOGLOBIN 14.3 g/dL (13.5-17.0); LYMPHOCYTES % (AUTO) 15.6 % (13-45); MEAN CORPUSCULAR HEMOGLOBIN 26.1 pg (27.0-33.4); MEAN CORPUSCULAR HGB CONC 32.8 g/dL (32.0-36.0); MEAN CORPUSCULAR VOLUME 80 fl (80-97); PLATELET COUNT 296 10^3/uL (150-450); RED CELL DISTRIBUTION WIDTH 13.9 % (11.5-14.0); TOTAL CELLS COUNTED % (AUTO) 100 %; WHITE BLOOD COUNT 8.7 10^3/uL (4.0-10.5)
[2019-12-24 15:49] LABS: ALBUMIN 4.3 g/dL (3.5-5.0); ALKALINE PHOSPHATASE 84 U/L (38-126); ANION GAP 13 (5-19); ASPARTATE AMINO TRANSFERASE 81 U/L (17-59); BILIRUBIN,DIRECT 0.5 mg/dL (0.0-0.4); BILIRUBIN,TOTAL 0.5 mg/dL (0.2-1.3); BLOOD UREA NITROGEN 45 mg/dL (7-20); CALCIUM 9.9 mg/dL (8.4-10.2); CARBON DIOXIDE 29 mmol/L (22-30); CHLORIDE 99 mmol/L (98-107); CREATINE KINASE 346 U/L (55-170); POTASSIUM 4.3 mmol/L (3.6-5.0); TOTAL PROTEIN 8.1 g/dL (6.3-8.2)
[2019-12-24 15:52] LABS: GLUCOSE 54 mg/dL (75-110)
[2019-12-24 16:01] LABS: CREATINE KINASE MB 1.89 ng/mL (<4.55); TROPONIN I < 0.012 ng/mL
--- NOTE | 2019-12-24 16:08 | RADIOLOGY REPORT (SQ) ---
EXAM DESCRIPTION: CHEST SINGLE VIEW COMPLETED DATE/TIME: 12/24/2019 3:49 pm REASON FOR STUDY: Chest Pain COMPARISON: 11/06/2019. EXAM PARAMETERS: NUMBER OF VIEWS: One view. TECHNIQUE: Single frontal radiographic view of the chest acquired. RADIATION DOSE: NA LIMITATIONS: None. FINDINGS: LUNGS AND PLEURA: Faint densities in the lung bases. No pleural effusion. No pneumothora x. MEDIASTINUM AND HILAR STRUCTURES: No masses. Contour normal. HEART AND VASCULAR STRUCTURES: Cardiomegaly. BONES: No acute findings. Degenerative changes in the spine. HARDWARE: None in the chest. OTHER: No other significant finding. IMPRESSION: FAINT DENSITIES IN THE LUNG BASES WHICH MAY BE DUE TO ATELECTASIS VERSUS DEVELOPING PNEU MONIA. TECHNICAL DOCUMENTATION: JOB ID: [id number] 2010 [employer]- All Rights Reserved Reading location - IP/workstation name: [email or web address]
[2019-12-24] MEDS ORDERED: DEXTROSE 50%-WATER 25 GM/50 ML DISP.SYRIN IV ONE (16:10)
--- NOTE | 2019-12-24 16:36 | RADIOLOGY REPORT (SQ) ---
EXAM DESCRIPTION: CT HEAD WITHOUT COMPLETED DATE/TIME: 12/24/2019 4:25 pm REASON FOR STUDY: fall COMPARISON: 07/22/2019. TECHNIQUE: Axial images acquired through the brain without intravenous contrast. Images reviewed wi th bone, brain and subdural windows. Additional sagittal and coronal reconstructions were generated. Images stored on PACS. All CT scanners at this facility use dose modulation, iterative reconstruction, and/or weight based d osing when appropriate to reduce radiation dose to as low as reasonably achievable (ALARA). [facility]: Dose Right [facility]: CareDose [facility]: Dose Right [facility]: Teradose 4D [facility]: [email or web address] RADIATION DOSE: CT Rad equipment meets quality standard of care and radiation dose reduction techniq ues were employed. CTDIvol: 53.2 mGy. DLP: 1017 mGy-cm. mGy. LIMITATIONS: None. FINDINGS: VENTRICLES: Normal size and contour. CEREBRUM: No masses. No hemorrhage. No midline shift. No evidence for acute infarction. Normal gra y/white matter differentiation. No areas of low density in the white matter. CEREBELLUM: No masses. No hemorrhage. No alteration of density. No evidence for acute infarction. EXTRAAXIAL SPACES: No fluid collections. No masses. ORBITS AND GLOBE: No intra- or extraconal masses. Normal contour of globe without masses. CALVARIUM: No fracture. PARANASAL SINUSES: No fluid or mucosal thickening. SOFT TISSUES: No mass or hematoma. OTHER: No other significant finding. IMPRESSION: NORMAL BRAIN CT WITHOUT CONTRAST. EVIDENCE OF ACUTE STROKE: NO. COMMENT: Quality ID # [id number]: Final reports with documentation of one or more dose reduction techniques (e.g., Automated exposure control, adjustment of the mA and/or kV according to patient size, use of iterative reconstruction technique) TECHNICAL DOCUMENTATION: JOB ID: [id number] 2010 [employer]- All Rights Reserved Reading location - IP/workstation name: [email or web address]
[2019-12-24] MEDS ORDERED: NORMAL SALINE 1000 ML 1,000 ML IV ONE (17:45)
[2019-12-24] MEDS ORDERED: NITROGLYCERIN 0.4 MG/TAB 25 TAB/BOTTLE SL PRN (18:03)
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
[2019-12-24 18:38] LABS: VENOUS BLOOD BASE EXCESS -0.8 mmol/L; VENOUS BLOOD HCO3 26.9 mmol/L (20-32); VENOUS BLOOD PCO2 57.7 mmHg (35-63); VENOUS BLOOD PH 7.29 (7.30-7.42)
[2019-12-24 18:45] LABS: INTERNATIONAL RATION (INR) 0.97; PARTIAL THROMBOPLASTIN TIME 26.7 SEC (23.5-35.8); PROTHROMBIN TIME 12.9 SEC (11.4-15.4)
[2019-12-24 19:07] LABS: NT PRO BNP 107 pg/mL (<125)
[2019-12-24 19:09] LABS: TROPONIN I < 0.012 ng/mL
--- NOTE | 2019-12-24 19:10 | RADIOLOGY REPORT (SQ) ---
EXAM DESCRIPTION: CTA CHEST COMPLETED DATE/TIME: 12/24/2019 6:38 pm REASON FOR STUDY: hypoxia, chest pain, syncope COMPARISON: None. TECHNIQUE: CT scan of the chest performed using helical scanning technique with dynamic intravenous contrast injection after the patient and his were informed of the risk of renal failure related to the contrast administration. Images reviewed with lung, soft tissue and bone windows. Reconstruc meghan coronal and sagittal MPR images reviewed. Additional 3 dimensional post-processing performed to develop Maximal Intensity Projection images (FL P). All images stored on PACS. All CT scanners at this facility use dose modulation, iterative reconstruction, and/or weight based d osing when appropriate to reduce radiation dose to as low as reasonably achievable (ALARA). [facility]: Dose Right [facility]: CareDose [facility]: Dose Right [facility]: Teradose 4D [facility]: [employer] CONTRAST TYPE AND DOSE: contrast/concentration: Omnipaque 350.00 mg/ml; Total Contrast Delivered: 6 5.0 ml; Total Saline Delivered: 61.0 ml Contrast bolus adequate for pulmonary arteries and aorta. RENAL FUNCTION: BUN 45 creatinine 2.3 GFR 28 RADIATION DOSE: CT Rad equipment meets quality standard of care and radiation dose reduction techniq ues were employed. CTDIvol: 16.5 - 28.0 mGy. DLP: 1086 mGy-cm. . LIMITATIONS: None. FINDINGS: LUNGS AND PLEURA: There is a small right pneumothorax. There is ground-glass infiltrates in the lower lobes. There is considerable opacification in each lung base with air bronchograms. AORTA AND GREAT VESSELS: No aneurysm. No dissection. HEART: No pericardial effusion. Moderate to marked coronary artery calcifications. PULMONARY ARTERIES: No emboli visualized in the main pulmonary arteries or the segmental branches. HILAR AND MEDIASTINAL STRUCTURES: No identified masses or abnormal nodes. HARDWARE: None in the chest. UPPER ABDOMEN: No significant findings. Limited exam. THYROID AND OTHER SOFT TISSUES: No masses. No adenopathy. BONES: No acute or significant finding. 3D MIPS: Confirm above findings. OTHER: No other significant finding. IMPRESSION: 1. There is no aortic aneurysm or dissection. There is no pulmonary embolus. 2. Small right pneumothorax. (less than 10%). 3. Ground-glass infiltrates in the lower lobes suggests mild pulmonary edema versus chronic intersti tial changes. 4. Airspace disease in both lower lobes, right more than left, pneumonia versus atelectasis. COMMENT: Quality ID # [id number]: Final reports with documentation of one or more dose reduction techniques (e.g., Automated exposure control, adjustment of the mA and/or kV according to patient size, use of iterative reconstruction technique) TECHNICAL DOCUMENTATION: JOB ID: [id number] 2010 [employer]- All Rights Reserved Reading location - IP/workstation name: [email or web address]
--- NOTE | 2019-12-24 19:27 | RADIOLOGY REPORT (SQ) ---
EXAM DESCRIPTION: FEMUR RIGHT COMPLETED DATE/TIME: 12/24/2019 7:06 pm REASON FOR STUDY: LOC, fall, pain with ambulation COMPARISON: None. NUMBER OF VIEWS: Two views. TECHNIQUE: Two radiographic images acquired of the right femur to include hip and knee in at least o ne projection. LIMITATIONS: None. FINDINGS: MINERALIZATION: Normal. BONES: No acute fracture. There is internal fixation or prior femoral fracture. SOFT TISSUES: No obvious swelling or foreign body. OTHER: No other significant finding. IMPRESSION: NEGATIVE STUDY OF THE RIGHT FEMUR. NO RADIOGRAPHIC EVIDENCE OF ACUTE INJURY. TECHNICAL DOCUMENTATION: JOB ID: [id number] 2010 [employer]- All Rights Reserved Reading location - IP/workstation name: [email or web address]
--- NOTE | 2019-12-24 19:28 | RADIOLOGY REPORT (SQ) ---
EXAM DESCRIPTION: HIP RIGHT AP/LATERAL COMPLETED DATE/TIME: 12/24/2019 7:06 pm REASON FOR STUDY: LOC, fall, pain with ambulation COMPARISON: None. NUMBER OF VIEWS: Two views. TECHNIQUE: AP pelvis and additional frog-leg view of the right hip. LIMITATIONS: None. FINDINGS: MINERALIZATION: Normal. RIGHT HIP: Internal fixation of a prior proximal femoral fracture. LEFT HIP: No fracture or dislocation. No worrisome bone lesions. PUBIS AND ISCHIUM: No fracture. PELVIS: No fracture. SACRUM: No fracture or dislocation. No worrisome bone lesions. LOWER LUMBAR SPINE: Lower lumbar degenerative changes suggested. SOFT TISSUES: No findings. OTHER: No other significant finding. IMPRESSION: Negative right hip. Lower lumbar degenerative changes. TECHNICAL DOCUMENTATION: JOB ID: [id number] 2010 [employer]- All Rights Reserved Reading location - IP/workstation name: [email or web address]
--- NOTE | 2019-12-24 19:28 | RADIOLOGY REPORT (SQ) ---
EXAM DESCRIPTION: TIBIA FIBULA RIGHT COMPLETED DATE/TIME: 12/24/2019 7:06 pm REASON FOR STUDY: LOC, fall, pain with ambulation COMPARISON: None. NUMBER OF VIEWS: Two views. TECHNIQUE: Two radiographic images acquired of the right tibia and fibula to include the knee and an kle in at least one projection. LIMITATIONS: None. FINDINGS: MINERALIZATION: Normal. BONES: No acute fracture or dislocation. No worrisome bone lesions. SOFT TISSUES: No obvious swelling or foreign body. OTHER: No other significant finding. IMPRESSION: NO RADIOGRAPHIC EVIDENCE OF ACUTE INJURY. TECHNICAL DOCUMENTATION: JOB ID: [id number] 2010 [employer]- All Rights Reserved Reading location - IP/workstation name: [employer]
--- NOTE | 2019-12-24 19:29 | RADIOLOGY REPORT (SQ) ---
EXAM DESCRIPTION: KNEE RIGHT 3 VIEWS COMPLETED DATE/TIME: 12/24/2019 7:06 pm REASON FOR STUDY: LOC, fall, pain with ambulation COMPARISON: None. NUMBER OF VIEWS: Three views. TECHNIQUE: AP, lateral, and oblique radiographic images acquired of the right knee. LIMITATIONS: None. FINDINGS: MINERALIZATION: Normal. BONES: No acute fracture or dislocation. No worrisome bone lesions. JOINT: No effusion. SOFT TISSUES: No soft tissue swelling. No radio-opaque foreign body. OTHER: There is a medullary jax in the distal femur. IMPRESSION: NEGATIVE STUDY OF THE RIGHT KNEE. NO RADIOGRAPHIC EVIDENCE OF ACUTE INJURY. TECHNICAL DOCUMENTATION: JOB ID: [id number] 2011 [employer]- All Rights Reserved Reading location - IP/workstation name: [email or web address]
--- NOTE | 2019-12-24 19:29 | RADIOLOGY REPORT (SQ) ---
EXAM DESCRIPTION: ANKLE RIGHT COMPLETE COMPLETED DATE/TIME: 12/24/2019 7:06 pm REASON FOR STUDY: LOC, fall, pain with ambulation COMPARISON: None. EXAM PARAMETERS: NUMBER OF VIEWS: Three views. TECHNIQUE: AP, lateral and oblique radiographic images acquired of the right ankle. LIMITATIONS: None. FINDINGS: MINERALIZATION: Normal. BONES: No acute fracture or dislocation. No worrisome bone lesions. JOINTS: No effusion. SOFT TISSUES: No significant soft tissue swelling. No radiopaque foreign body. OTHER: No other significant finding. IMPRESSION: NO FRACTURE. TECHNICAL DOCUMENTATION: JOB ID: [id number] [id number] 2010 [employer]- All Rights Reserved Reading location - IP/workstation name: [email or web address]
[2019-12-24] MEDS ORDERED: ONDANSETRON HCL INJ/PF 4 MG/2 ML SDV IV PRN (20:56)
[2019-12-24] MEDS ORDERED: CEFEPIME 1 GM/D5W RTU 1 GM/50 ML RTUPB IV ONE (20:57)
[2019-12-24] MEDS ORDERED: DEXTROSE 40% GEL 15 GM TUBE PO PRN ×2 (21:04)
[2019-12-24] MEDS ORDERED: GLUCAGON,HUMAN RECOMB 1 MG INJ IM PRN (21:04)
[2019-12-24] MEDS ORDERED: DEXTROSE 50%-WATER 25 GM/50 ML DISP.SYRIN IV PRN ×2 (21:04)
--- NOTE | 2019-12-24 22:35 | RADIOLOGY REPORT (SQ) ---
EXAM DESCRIPTION: MR BRAIN WITHOUT IV CONTRAST COMPLETED DATE/TME: 12/24/2019 20:57 CLINICAL HISTORY: 64 years, Male, syncope, sleepiness COMPARISON: Prior CT head from earlier the same day; prior MR brain from 07/22/2019 TECHNIQUE: Multiplanar, multisequence MR images of the head were obtained without the use of intravenous contrast. Images stored on PACS. LIMITATIONS: None. FINDINGS: Midline structures show no suspicious abnormality. Diffusion weighted images reveal no foci of diffusion restriction. Otherwise, evaluation of the brain parenchyma reveals mild periventricular and patchy subcortical white matter signal alteration. Ventricles and sulcal spaces are mildly enlarged. There are no extra-axial fluid collections. Intracranial arterial and venous flow voids appear within normal limits. Globes and orbits show no suspicious abnormality. Paranasal sinuses are clear. Moderate signal normality is noted about the bilateral mastoid air cells. In addition, there is focal soft tissue protuberance located about the right posterior parietal scalp towards the vertex. This area demonstrates mildly hyperintense FLAIR signal, hypointense T1 signal, and some degree of diffusion restriction. This lesion appears new from the previous exam dated 07/22/2019. Susceptibility weighted images reveal no foci of susceptibility artifact. IMPRESSION: No acute intracranial hemorrhage, mass, or evidence of acute infarct. Mild chronic microvascular ischemic change with generalized atrophy. Bilateral mastoid air cell disease. Nonspecific soft tissue protuberance/signal abnormality located about the right posterior parietal scalp towards the vertex, new from the previous examination dated 07/22/2019. Correlate with physical examination as this could indicate a small soft tissue hematoma. copyright 2010 [employer]- All Rights Reserved
--- NOTE | 2019-12-24 23:24 | EKG REPORT ---
SEVERITY:- ABNORMAL ECG - SINUS BRADYCARDIA NONSPECIFIC INTRAVENTRICULAR CONDUCTION DELAY : Confirmed by: Javad Jennings MD 24-Dec-2019 23:23:21
[2019-12-24] MEDS: ACETAMINOPHEN 325 MG TABLET PO PRN (23:48)
[2019-12-24] MEDS: METOPROLOL TARTRATE 25 MG TABLET PO SCH (23:49)
[2019-12-24] MEDS: CEFEPIME 1 GM/D5W RTU 1 GM/50 ML RTUPB IV SCH (23:49)
[2019-12-24] MEDS: ATORVASTATIN CALCIUM 40 MG TABLET PO SCH (23:49)
[2019-12-25] MEDS ORDERED: TRAMADOL HCL 50 MG TABLET PO ONE (00:15)
[2019-12-25] MEDS: INSULIN LISPRO 100 UNIT/ML 3 ML VIAL SUBCUT SCH ×5 (00:16→22:29)
[2019-12-25] MEDS: NORMAL SALINE 1000 ML 1,000 ML IV PRN ×2 (01:42→09:28)
[2019-12-25] MEDS: PANTOPRAZOLE SODIUM 40 MG VIAL IV SCH ×3 (01:43→22:04)
[2019-12-25 03:18] LABS: ANION GAP 9 (5-19); BLOOD UREA NITROGEN 42 mg/dL (7-20); CALCIUM 9.1 mg/dL (8.4-10.2); CARBON DIOXIDE 25 mmol/L (22-30); CHLORIDE 102 mmol/L (98-107); CREATINE KINASE 136 U/L (55-170); GLUCOSE 223 mg/dL (75-110); POTASSIUM 4.4 mmol/L (3.6-5.0)
[2019-12-25 03:25] LABS: CREATINE KINASE MB 1.38 ng/mL (<4.55)
[2019-12-25 03:30] LABS: TROPONIN I < 0.012 ng/mL
[2019-12-25 06:46] LABS: ARTERIAL BLOOD BASE EXCESS 0.6 mmol/L; ARTERIAL BLOOD H2CO3 1.23 mmol/L (1.05-1.35); ARTERIAL BLOOD HCO3 25.2 mmol/L (20-24); ARTERIAL BLOOD O2 SATURATION 93.1 % (94-98); ARTERIAL BLOOD PCO2 40.7 mmHg (35-45); ARTERIAL BLOOD PH 7.41 (7.35-7.45); ARTERIAL BLOOD PO2 65.4 mmHg (80-100); ARTERIAL BLOOD TOTAL CO2 26.5 mmol/L (23-27)
[2019-12-25 06:47] LABS: ARTERIAL BLOOD FIO2 5L
[2019-12-25 07:56] LABS: ABSOLUTE LYMPHOCYTES (AUTO) 1.8 10^3/uL (0.5-4.7); ABSOLUTE MONOCYTES (AUTO) 0.6 10^3/uL (0.1-1.4); ABSOLUTE NEUT (AUTO) 3.5 10^3/uL (1.7-8.2); BASOPHILS % (AUTO) 0.6 % (0-2); EOSINOPHILS % (AUTO) 0.7 % (0-6); HEMATOCRIT 38.3 % (37.9-51.0); HEMOGLOBIN 13.1 g/dL (13.5-17.0); LYMPHOCYTES % (AUTO) 31.1 % (13-45); MEAN CORPUSCULAR HEMOGLOBIN 26.8 pg (27.0-33.4); MEAN CORPUSCULAR HGB CONC 34.2 g/dL (32.0-36.0); MEAN CORPUSCULAR VOLUME 78 fl (80-97); MONOCYTES % (AUTO) 9.3 % (3-13); RED BLOOD COUNT 4.89 10^6/uL (4.35-5.55); RED CELL DISTRIBUTION WIDTH 13.9 % (11.5-14.0); SEGMENTED NEUTROPHILS % (AUTO) 58.3 % (42-78); TOTAL CELLS COUNTED % (AUTO) 100 %; WHITE BLOOD COUNT 5.9 10^3/uL (4.0-10.5)
[2019-12-25 08:13] LABS: CREATINE KINASE MB 1.09 ng/mL (<4.55)
[2019-12-25 08:16] LABS: TROPONIN I < 0.012 ng/mL
[2019-12-25 08:22] LABS: PLATELET COUNT 103 10^3/uL (150-450)
[2019-12-25] MEDS: IPRATROPIUM/ALBUTEROL 0.5-2.5 MG/3 ML AMPUL NEB SCH ×4 (08:39→19:00)
[2019-12-25] MEDS: BUDESONIDE NEB 0.5 MG/2 ML AMPUL NEB SCH ×2 (08:40→19:01)
[2019-12-25] MEDS ORDERED: DEXTROSE 50%-WATER 25 GM/50 ML DISP.SYRIN IV PRN ×2 (08:42)
[2019-12-25] MEDS ORDERED: DEXTROSE 40% GEL 15 GM TUBE PO PRN ×2 (08:42)
[2019-12-25] MEDS ORDERED: GLUCAGON,HUMAN RECOMB 1 MG INJ IM PRN (08:42)
[2019-12-25] MEDS: METOPROLOL TARTRATE 25 MG TABLET PO SCH ×2 (09:24→22:05)
[2019-12-25] MEDS: AMLODIPINE BESYLATE 10 MG TABLET PO SCH (09:25)
[2019-12-25] MEDS: CEFEPIME 1 GM/D5W RTU 1 GM/50 ML RTUPB IV SCH ×2 (09:26→22:04)
[2019-12-25] MEDS: ENOXAPARIN SODIUM INJ 40 MG/0.4 ML DISP.SYRIN SUBCUT SCH (09:27)
--- NOTE | 2019-12-25 09:46 | PDOC H&P ---
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 Infante general surgery and he called me this morning and said that no need for anything to do with the pneumothorax because it is very small unless patient have any clinical respiratory distress Patient also have a ongoing problem with this cough for the last several weeks patient received several weeks of antibiotics history of the COPD history of the gastro-porosisAnd the patient's I think scuffing a lot Patient's also complained with chest pain on the right side of the chest most likely chest contusions Patient's cardiac enzyme is all negative patient is usually seen by Dr. Victor the [facility] Patient's CT head was negative MRI of the head was negative for any acute finding When I saw the patient in IMCU denied any chest pain except the chest wall pain on the right side patient does not remember how he passed out Past Medical History Cardiac Medical History: Reports: Coronary Artery Disease - CARDIAC STENTS X5, Hyperlipidema, Hypertension Denies: Atrial Fibrillation, Congestive Heart Failure, Myocardial Infarction, Peripheral Vascular Disease, Pulmonary Embolism Pulmonary Medical History: Reports: Asthma, Bronchitis, Chronic Obstructive Pulmonary Disease (COPD), Pneumonia, Sleep Apnea Denies: Respiratory Failure, Tuberculosis Neurological Medical History: Denies: Seizures Endocrine Medical History: Reports: Diabetes Mellitus Type 2 Denies: Hyperthyroidism, Hypothyroidism Renal/ Medical History: Reports: Chronic Kidney Disease Denies: End Stage Renal Disease Malignancy Medical History: Denies: Leukemia, Lung Cancer GI Medical History: Reports: Gastroesophageal Reflux Disease, Hiatal Hernia Denies: Crohn's Disease Musculoskeltal Medical History: Reports: Arthritis - bursitis left shoulder, kamar k bone spurs Denies: Fibromyalgia Psychiatric Medical History: Denies: Bipolar Disorder, Dementia, Depression, Post Traumatic Stress Disorder Hematology: Reports: Anemia Infectious Medical History: Denies: HIV Past Surgical History Past Surgical History: Reports: Cardiac Catheterization - 5 stents, Cholecystectomy, Coronary Stent, Orthopedic Surgery - right leg, back surgery, T onsillectomy Denies: Appendectomy, Colostomy, Coronary Artery Bypass Graft, Gastric Bypass Surgery, Herniorrhaphy, Pacemaker Social History Information Source: Patient Smoking Status: Former Smoker Cigarettes Packs Per Day: 3 Last Time Smoked: 1992 Frequency of Alcohol Use: None Hx Recreational Drug Use: No Drugs: None Hx Prescription Drug Abuse: No Family History Family History: Arthritis, CAD, CVA, DM, Hyperlipidemia, Hypertension, Malign willy Parental Family History Reviewed: Yes Children Family History Reviewed: Yes Sibling(s) Family History Reviewed.: Yes Medication/Allergy Home Medications: Amlodipine Besylate [Norvasc 10 mg Tablet] 10 mg PO DAILY 12/24/19 Atorvastatin Calcium [Lipitor 40 mg Tablet] 40 mg PO QHS 12/24/19 Budesonide [Pulmicort Neb 0.5 mg/2 ml Ampul] 1 vial NEB BID 12/24/19 Fenofibrate Nanocrystallized [Fenofibrate] 145 mg PO DAILY 12/24/19 Fluticasone/Umeclidin/Vilanter [Trelegy 100-62.5-25 Mcg Ellipta 14 Dose/Dpi] 1 puff IH DAILY 12/24/19 Furosemide [Lasix 40 mg Tablet] 40 mg PO DAILY 12/24/19 Gabapentin [Neurontin 300 mg Capsule] 300 mg PO BID 12/24/19 Insulin Regular, Human [Humulin R U-500 Kwikpen] 120 unit SQ AC 12/24/19 Levocetirizine Dihydrochloride [Xyzal] 5 mg PO DAILY 12/24/19 Lisinopril [Prinivil 5 mg Tablet] 5 mg PO DAILY 12/24/19 Meclizine HCl [Antivert 12.5 mg Tablet] 12.5 mg PO DAILY 12/24/19 Metoprolol Tartrate [Lopressor 25 mg Tablet] 25 mg PO Q12 12/24/19 Montelukast Sodium [Singulair 10 mg Tablet] 10 mg PO QPM 12/24/19 Omeprazole 40 mg PO DAILY 12/24/19 Tamsulosin HCl [Flomax 0.4 mg Cap.sr] 0.4 mg PO QPM 12/24/19 Allergies/Adverse Reactions: clopidogrel bisulfate [From Plavix] Adverse Reaction (Severe, Verified 06/19/19 21:02) bleeding from ear/NOSE Review of Systems Constitutional: ABSENT: chills, fever(s), headache(s), weight gain, weight loss Eyes: ABSENT: visual disturbances Ears: ABSENT: hearing changes Cardiovascular: ABSENT: chest pain, dyspnea on exertion, edema, orthropnea, palpitations Respiratory: ABSENT: cough, hemoptysis Gastrointestinal: ABSENT: abdominal pain, constipation, diarrhea, hematemesis, hematochezia, nausea, vomiting Genitourinary: ABSENT: dysuria, hematuria Musculoskeletal: ABSENT: joint swelling Integumentary: ABSENT: rash, wounds Neurological: ABSENT: abnormal gait, abnormal speech, confusion, dizziness, focal weakness, syncope Psychiatric: ABSENT: anxiety, depression, homidical ideation, suicidal ideation Endocrine: ABSENT: cold intolerance, heat intolerance, menstrual abnormalities, polydipsia, polyuria Hematologic/Lymphatic: ABSENT: easy bleeding, easy bruising, lymphadenopathy Physical Exam Vital Signs: Temp Pulse Resp BP Pulse Ox 98.6 F 67 15 151/68 H 94 12/25/19 08:25 12/25/19 08:25 12/25/19 08:25 12/25/19 08:25 12/25/19 08:25 Intake & Output 12/24/19 12/25/19 12/26/19 06:59 06:59 06:59 Intake Total 1100 777 Output Total 350 Balance 750 777 Weight 85.9 kg General appearance: PRESENT: no acute distress, well-developed, well-nourished Head exam: PRESENT: atraumatic, normocephalic Eye exam: PRESENT: conjunctiva pink, EOMI, PERRLA. ABSENT: scleral icterus Ear exam: PRESENT: normal external ear exam Mouth exam: PRESENT: moist, tongue midline Neck exam: PRESENT: full ROM. ABSENT: carotid bruit, JVD, lymphadenopathy, thyromegaly Respiratory exam: PRESENT: chest wall tenderness, decreased breath sounds Cardiovascular exam: PRESENT: RRR. ABSENT: diastolic murmur, rubs, systolic murmur Pulses: PRESENT: normal dorsalis pedis pul, +2 pedal pulses bilateral Vascular exam: PRESENT: normal capillary refill GI/Abdominal exam: PRESENT: normal bowel sounds, soft. ABSENT: distended, guarding, mass, organolmegaly, rebound, tenderness Rectal exam: PRESENT: deferred Extremities exam: ABSENT: pedal edema Musculoskeletal exam: PRESENT: ambulatory Neurological exam: PRESENT: alert, awake, oriented to person, oriented to place, oriented to time, oriented to situation, CN II-XII grossly intact. ABSENT: motor sensory deficit Psychiatric exam: PRESENT: appropriate affect, normal mood. ABSENT: homicidal ideation, suicidal ideation Skin exam: PRESENT: dry, intact, warm. ABSENT: cyanosis, rash Results Laboratory Results: 12/25/19 07:17 12/25/19 02:43 12/24/19 12/24/19 12/24/19 15:00 15:00 18:15 WBC 8.7 RBC 5.50 Hgb 14.3 Hct 43.7 MCV 80 MCH 26.1 L MCHC 32.8 RDW 13.9 Plt Count 296 Seg Neutrophils % 76.0 Carbonic Acid HCO3/H2CO3 Ratio ABG pH ABG pCO2 ABG pO2 ABG HCO3 ABG O2 Saturation ABG Base Excess VBG pH 7.29 L VBG pCO2 57.7 VBG HCO3 26.9 VBG Base Excess -0.8 FiO2 Sodium 140.5 Potassium 4.3 Chloride 99 Carbon Dioxide 29 Anion Gap 13 BUN 45 H Creatinine 2.33 H Est GFR ( Amer) 34 L Glucose 54 L Lactic Acid Calcium 9.9 Magnesium Total Bilirubin 0.5 AST 81 H Alkaline Phosphatase 84 Total Protein 8.1 Albumin 4.3 12/25/19 12/25/19 12/25/19 02:43 02:43 06:33 WBC RBC Hgb Hct MCV MCH MCHC RDW Plt Count Seg Neutrophils % Carbonic Acid 1.23 HCO3/H2CO3 Ratio 20:1 ABG pH 7.41 ABG pCO2 40.7 ABG pO2 65.4 L ABG HCO3 25.2 H ABG O2 Saturation 93.1 L ABG Base Excess 0.6 VBG pH VBG pCO2 VBG HCO3 VBG Base Excess FiO2 5L Sodium 135.9 L Potassium 4.4 Chloride 102 Carbon Dioxide 25 Anion Gap 9 BUN 42 H Creatinine 1.77 H Est GFR ( Amer) 47 L Glucose 223 H Lactic Acid 0.8 Calcium 9.1 Magnesium Total Bilirubin AST Alkaline Phosphatase Total Protein Albumin 12/25/19 12/25/19 07:17 07:17 WBC 5.9 RBC 4.89 Hgb 13.1 L Hct 38.3 MCV 78 L MCH 26.8 L MCHC 34.2 RDW 13.9 Plt Count 103 L Seg Neutrophils % 58.3 Carbonic Acid HCO3/H2CO3 Ratio ABG pH ABG pCO2 ABG pO2 ABG HCO3 ABG O2 Saturation ABG Base Excess VBG pH VBG pCO2 VBG HCO3 VBG Base Excess FiO2 Sodium Potassium Chloride Carbon Dioxide Anion Gap BUN Creatinine Est GFR ( Amer) Glucose Lactic Acid Calcium Magnesium 1.7 Total Bilirubin AST Alkaline Phosphatase Total Protein Albumin 12/24/19 12/24/19 12/24/19 15:00 15:00 18:15 Creatine Kinase 346 H CK-MB (CK-2) 1.89 Troponin I < 0.012 < 0.012 NT-Pro-B Natriuret Pep 107 12/25/19 12/25/19 12/25/19 02:43 02:43 07:17 Creatine Kinase 136 121 CK-MB (CK-2) 1.38 Troponin I < 0.012 NT-Pro-B Natriuret Pep 12/25/19 07:17 Creatine Kinase CK-MB (CK-2) 1.09 Troponin I < 0.012 NT-Pro-B Natriuret Pep Impressions: Chest X-Ray 12/24/19 00:00 IMPRESSION: FAINT DENSITIES IN THE LUNG BASES WHICH MAY BE DUE TO ATELECTASIS VERSUS DEVELOPING PNEUMONIA. Head CT 12/24/19 00:00 IMPRESSION: NORMAL BRAIN CT WITHOUT CONTRAST. EVIDENCE OF ACUTE STROKE: NO. Chest/Abdomen CTA 12/24/19 17:44 IMPRESSION: 1. There is no aortic aneurysm or dissection. There is no pulmonary embolus. 2. Small right pneumothorax. (less than 10%). 3. Ground-glass infiltrates in the lower lobes suggests mild pulmonary edema versus chronic interstitial changes. 4. Airspace disease in both lower lobes, right more than left, pneumonia versus atelectasis. Ankle X-Ray 12/24/19 18:02 IMPRESSION: NO FRACTURE. Femur X-Ray 12/24/19 18:02 IMPRESSION: NEGATIVE STUDY OF THE RIGHT FEMUR. NO RADIOGRAPHIC EVIDENCE OF ACUTE INJURY. Hip/Pelvis X-Ray 12/24/19 18:02 IMPRESSION: Negative right hip. Lower lumbar degenerative changes. Knee X-Ray 12/24/19 18:02 IMPRESSION: NEGATIVE STUDY OF THE RIGHT KNEE. NO RADIOGRAPHIC EVIDENCE OF ACUTE INJURY. Tibia/Fibula X-Ray 12/24/19 18:02 IMPRESSION: NO RADIOGRAPHIC EVIDENCE OF ACUTE INJURY. Head MRI 12/24/19 20:57 IMPRESSION: No acute intracranial hemorrhage, mass, or evidence of acute infarct. Mild chronic microvascular ischemic change with generalized atrophy. Bilateral mastoid air cell disease. Nonspecific soft tissue protuberance/signal abnormality located about the right posterior parietal scalp towards the vertex, new from the previous examination dated 07/22/2019. Correlate with physical examination as this could indicate a small soft tissue hematoma. copyright 2010 [employer]- All Rights Reserved Assessment & Plan - Diagnosis (1) Acute kidney failure Qualifiers: Acute renal failure type: unspecified Qualified Code(s): N17.9 - Acute kidney failure, unspecified Is this a current diagnosis for this admission?: Yes Plan: Start the patient on IV fluids and with recent use of the contrast will continues IV fluid for next 24 to 48 hours (2) Chest pain Qualifiers: Chest pain type: chest pain on breathing Qualified Code(s): R07.1 - Chest pain on breathing; R07.81 - Pleurodynia Is this a current diagnosis for this admission?: Yes Plan: Most likely noncardiac's we will get the cardiology evaluations because of the multiple cardiac history with the syncopal episodes will use the lidocaine patch on the right side of the chest wall (3) Pneumonia of both lower lobes Qualifiers: Pneumonia type: due to unspecified organism Qualified Code(s): J18.9 - Pneumonia, unspecified organism Is this a current diagnosis for this admission?: Yes Plan: The patient on IV antibiotics (4) Pneumothorax, right Is this a current diagnosis for this admission?: Yes Plan: We will repeat the chest x-ray patient is currently not in distress as per discussed with the surgery continues to monitor (5) Syncope and collapse Is this a current diagnosis for this admission?: Yes Plan: Patient MRI of the head is negative's will get the carotid Dopplers consult ca rdiology (6) COPD (chronic obstructive pulmonary disease) Qualifiers: COPD type: chronic bronchitis Is this a current diagnosis for this admission?: Yes Plan: We will start the patient on the Pulmicort nebulizer treatment patient have an outpatient appointment to see Dr. Ndiaye with ongoing problem is not controlled with the all the treatments records since to evaluate the patient (7) Coronary artery disease Qualifiers: Coronary Disease-Associated Artery/Lesion type: hughes artery Associated angina: without angina Is this a current diagnosis for this admission?: Yes Plan: Rule out acute coronary syndromes (8) Hypertension Qualifiers: Hypertension type: essential hypertension Is this a current diagnosis for this admission?: Yes Plan: Currently all stable (9) Nausea Is this a current diagnosis for this admission?: Yes Plan: % Ongoing gastroparesis due to uncontrolled diabetes with a noncompliance (10) Sleep apnea syndrome Qualifiers: Sleep apnea type: unspecified type Is this a current diagnosis for this admission?: Yes (11) Type 2 diabetes mellitus Qualifiers: Diabetes mellitus complication status: with other specified complication Is this a current diagnosis for this admission?: Yes Plan: Initial sliding scale and current insulin - Time Time Spent: 50 to 70 Minutes Medications reviewed and adjusted accordingly: Yes Anticipated discharge: Home Within: Other - Inpatient Certification Based on my medical assessment, after consideration of the patient's comorbidities, presenting symptoms, or acuity I expect that the services needed warrant INPATIENT care.: Yes I certify that my determination is in accordance with my understanding of Medicare's requirements for reasonable and necessary INPATIENT services [42 CFR 412.3e].: Yes Medical Necessity: Significant Comorbidiites Make Outpatient Treatment Too Risk y, Need For IV Fluids, Need for IV Antibiotics Post Hospital Care: D/C [employer] Documentation - Plan Summary Plan Summary: Admit the patient in IMCU for further evaluations
[2019-12-25] MEDS ORDERED: BUDESONIDE NEB 0.5 MG/2 ML AMPUL NEB SCH (10:00)
--- NOTE | 2019-12-25 13:40 | RADIOLOGY REPORT (SQ) ---
EXAM DESCRIPTION: CHEST 2 VIEWS COMPLETED DATE/TIME: 12/25/2019 11:06 am REASON FOR STUDY: evaluation of pneumo thorax COMPARISON: 12/24/2019 TECHNIQUE: Frontal and lateral radiographic views of the chest acquired. NUMBER OF VIEWS: Two view. LIMITATIONS: None. FINDINGS: LUNGS AND PLEURA: Persistent diminished aeration in the lung bases, subsegmental atelectas is or airspace disease which looks similar compared to yesterday. Upper lung putnam are clear. MEDIASTINUM AND HILAR STRUCTURES: Stable contours. HEART AND VASCULAR STRUCTURES: Cardiomegaly. No overt failure. BONES: No acute findings. HARDWARE: None in the chest. OTHER: No other significant finding. IMPRESSION: Stable chest as above. Diminished basilar aeration. TECHNICAL DOCUMENTATION: JOB ID: [id number] 2010 [employer]- All Rights Reserved Reading location - IP/workstation name: [email or web address]
[2019-12-25] MEDS: FLUTICASONE/UMECLIDIN/VILANTER 100-62.5-25 MCG/DOSE IH SCH (14:22)
[2019-12-25] MEDS: MECLIZINE HCL 12.5 MG TABLET PO SCH (14:22)
[2019-12-25 14:51] LABS: CREATINE KINASE MB 0.71 ng/mL (<4.55)
[2019-12-25 14:56] LABS: TROPONIN I < 0.012 ng/mL
[2019-12-25] MEDS: ACETAMINOPHEN 325 MG TABLET PO PRN (16:36)
--- NOTE | 2019-12-25 17:32 | PDOC CONSULTATION ---
Consultation Consult Date: 12/25/19 Provider Consulted: CHASE HANNA Consult reason:: Acute kidney injury. History of Present Illness Admission Date/PCP: 12/24/19 21:07 ZAIRE GEIGER MD History of Present Illness: TAHIR FOURNIER is a 64 year old male with history of coronary artery disease, hyp ertension, diabetes mellitus type 2, COPD and sleep apnea who was admitted yesterday because of a syncopal episode and a fall. Patient and at bedside with his brother also confirmed that yesterday while visiting his cousin's workshop the patient passed out so EMS was called. His oxygen saturation was low at 75% so he was given nonrebreather mass and later on switched to nasal cannula. He was brought to the emergency room and was extensively worked up. He had a chest x-ray which showed faint densities in the lung bases which may be due to atelectasis versus pneumonia. He had a normal head CT. A CTA of the chest showed no pulmonary embolus with airspace disease in both lower lobes and some groundglass infiltrates. He had negative ankle x-ray, femur x-ray, hip x- ray, knee x-ray and tibia-fibula x-ray. He also had MRI done which showed no acute process. His initial lab work showed an elevated BUN of 45 and creatinine of 2.33. Patient's baseline creatinine was around 1.2-1.3. He seems to have had episodes of acute kidney injury in the past which the and the patient does confirm. Since the patient's admission he was given IV fluid boluses and currently still on normal saline. His initial blood pressure in the emergency room yesterday was about 90/60 which is currently now improved. Patient said that he has been drinking a lot of water about 6-8 bottles a day. He has an episode of vomiting yesterday. Otherwise he denies any diarrhea. He reports some right hand pain. He denies any change in his urine volume at home. He denies any blood in the urine. He does admit that he has some BPH. Recorded urine volume since admission was 350 mL. Currently he appears to be better. Past Medical History Cardiac Medical History: Reports: Coronary Artery Disease - CARDIAC STENTS X5, Hyperlipidemia, Hypertension-primary Pulmonary Medical History: Reports: Asthma, Bronchitis, Chronic Obstructive Pulmonary Disease (COPD), Pneumonia, Sleep Apnea Endocrine Medical History: Reports: Diabetes Mellitus Type 2 Renal/ Medical History: Reports: Benign Prostatic Hyperplasia GI Medical History: Reports: Gastroesophageal Reflux Disease, Hiatal Hernia Musculoskeltal Medical History: Reports: Arthritis - bursitis left shoulder, back bone spurs Past Surgical History Past Surgical History: Reports: Cardiac Catheterization - 5 stents, Cholecystectomy, Coronary Stent - X5, Orthopedic Surgery - right leg, back surgery, Tonsillectomy Social History Information Source: Patient Lives with: Family Smoking Status: Former Smoker Cigarettes Packs Per Day: 3 Last Time Smoked: 1992 Frequency of Alcohol Use: None Hx Recreational Drug Use: No Drugs: None Hx Prescription Drug Abuse: No Family History Family History: CAD - Father and brother, Chronic Kidney Disease - Father, CVA - Monitor, DM - Mother and brother, Hypertension - Mother, brother and son, Malignancy - Mother had breast cancer Parental Family History Reviewed: Yes Children Family History Reviewed: Yes Sibling(s) Family History Reviewed.: Yes Medication/Allergy Home Medications: Amlodipine Besylate [Norvasc 10 mg Tablet] 10 mg PO DAILY 12/24/19 Atorvastatin Calcium [Lipitor 40 mg Tablet] 40 mg PO QHS 12/24/19 Budesonide [Pulmicort Neb 0.5 mg/2 ml Ampul] 1 vial NEB BID 12/24/19 Fenofibrate Nanocrystallized [Fenofibrate] 145 mg PO DAILY 12/24/19 Fluticasone/Umeclidin/Vilanter [Trelegy 100-62.5-25 Mcg Ellipta 14 Dose/Dpi] 1 puff IH DAILY 12/24/19 Furosemide [Lasix 40 mg Tablet] 40 mg PO DAILY 12/24/19 Gabapentin [Neurontin 300 mg Capsule] 300 mg PO BID 12/24/19 Insulin Regular, Human [Humulin R U-500 Kwikpen] 120 unit SQ AC 12/24/19 Levocetirizine Dihydrochloride [Xyzal] 5 mg PO DAILY 12/24/19 Lisinopril [Prinivil 5 mg Tablet] 5 mg PO DAILY 12/24/19 Meclizine HCl [Antivert 12.5 mg Tablet] 12.5 mg PO DAILY 12/24/19 Metoprolol Tartrate [Lopressor 25 mg Tablet] 25 mg PO Q12 12/24/19 Montelukast Sodium [Singulair 10 mg Tablet] 10 mg PO QPM 12/24/19 Omeprazole 40 mg PO DAILY 12/24/19 Tamsulosin HCl [Flomax 0.4 mg Cap.sr] 0.4 mg PO QPM 12/24/19 Allergies/Adverse Reactions: clopidogrel bisulfate [From Plavix] Adverse Reaction (Severe, Verified 06/19/19 21:02) bleeding from ear/NOSE Review of Systems All systems: reviewed and no additional remarkable complaints except as stated Review of Systems: Constitutional: ABSENT: chills, fatigue, fever(s), headache(s), weight gain, weight loss Eyes: ABSENT: visual disturbances Ears: ABSENT: hearing changes Cardiovascular: ABSENT: chest pain, dyspnea on exertion, edema, orthropnea, palpitations Respiratory: ABSENT: cough, dyspnea, hemoptysis Gastrointestinal: ABSENT: abdominal pain, constipation, diarrhea, hematemesis, hematochezia, nausea; admits 1 episode of vomiting Genitourinary: ABSENT: dysuria, hematuria Musculoskeletal: ABSENT: joint swelling; right flank pain from the fall Integumentary: ABSENT: rash, wounds Neurological: ABSENT: abnormal gait, abnormal speech, confusion, dizziness, focal weakness, numbness, syncope Psychiatric: ABSENT: anxiety, depression Endocrine: ABSENT: cold intolerance, heat intolerance, polydipsia, polyuria Hematologic/Lymphatic: ABSENT: easy bleeding, easy bruising, lymphadenopathy Physical Exam Vital Signs: Temp Pulse Resp BP Pulse Ox 98.2 F 73 17 115/37 L 92 12/25/19 12:24 12/25/19 12:24 12/25/19 12:24 12/25/19 12:24 12/25/19 12:24 Intake & Output 12/24/19 12/25/19 12/26/19 06:59 06:59 06:59 Intake Total 1100 1127 Output Total 350 800 Balance 750 327 Weight 85.9 kg Exam: General appearance: No acute distress, cooperative, well-developed, well- nourished Head exam: PRESENT: atraumatic, normocephalic Eye exam: PRESENT: Conjunctiva Bronson, EOMI, PERRLA. ABSENT: conjunctival injection, scleral icterus Mouth exam: PRESENT: moist, neck supple, tongue midline Neck exam: PRESENT: full ROM. ABSENT: carotid bruit, JVD, lymphadenopathy, thy romegaly Respiratory exam: PRESENT: clear to auscultation bilaterally. ABSENT: rales, rhonchi, stridor, wheezes Cardiovascular exam: PRESENT: RRR, +S1, +S2. Grade 2/6 systolic murmur Pulses: PRESENT: normal radial pulses, normal dorsalis pedis pulses GI/Abdominal exam: PRESENT: normal bowel sounds, soft. ABSENT: guarding, mass, tenderness Rectal exam: Deferred Extremities exam: PRESENT: full ROM. ABSENT: calf tenderness, pedal edema Musculoskeletal: PRESENT: full ROM. ABSENT: deformity Neurological exam: PRESENT: alert, Awake, Oriented to person, Oriented to place, Oriented to time, reflexes normal, CN II-XII grossly intact. ABSENT: motor sensory deficit Psychiatric exam: PRESENT: appropriate affect, normal mood. ABSENT: homicidal ideation, suicidal ideation Skin exam: PRESENT: intact, dry, warm. ABSENT: rash Results Laboratory Results: 12/25/19 07:17 12/25/19 02:43 12/24/19 12/24/19 12/25/19 15:00 18:15 02:43 WBC RBC Hgb Hct MCV MCH MCHC RDW Plt Count Seg Neutrophils % Carbonic Acid HCO3/H2CO3 Ratio ABG pH ABG pCO2 ABG pO2 ABG HCO3 ABG O2 Saturation ABG Base Excess VBG pH 7.29 L VBG pCO2 57.7 VBG HCO3 26.9 VBG Base Excess -0.8 FiO2 Sodium 140.5 Potassium 4.3 Chloride 99 Carbon Dioxide 29 Anion Gap 13 BUN 45 H Creatinine 2.33 H Est GFR ( Amer) 34 L Glucose 54 L Lactic Acid 0.8 Calcium 9.9 Magnesium Total Bilirubin 0.5 AST 81 H Alkaline Phosphatase 84 Total Protein 8.1 Albumin 4.3 12/25/19 12/25/19 12/25/19 02:43 06:33 07:17 WBC 5.9 RBC 4.89 Hgb 13.1 L Hct 38.3 MCV 78 L MCH 26.8 L MCHC 34.2 RDW 13.9 Plt Count 103 L Seg Neutrophils % 58.3 Carbonic Acid 1.23 HCO3/H2CO3 Ratio 20:1 ABG pH 7.41 ABG pCO2 40.7 ABG pO2 65.4 L ABG HCO3 25.2 H ABG O2 Saturation 93.1 L ABG Base Excess 0.6 VBG pH VBG pCO2 VBG HCO3 VBG Base Excess FiO2 5L Sodium 135.9 L Potassium 4.4 Chloride 102 Carbon Dioxide 25 Anion Gap 9 BUN 42 H Creatinine 1.77 H Est GFR ( Amer) 47 L Glucose 223 H Lactic Acid Calcium 9.1 Magnesium Total Bilirubin AST Alkaline Phosphatase Total Protein Albumin 12/25/19 07:17 WBC RBC Hgb Hct MCV MCH MCHC RDW Plt Count Seg Neutrophils % Carbonic Acid HCO3/H2CO3 Ratio ABG pH ABG pCO2 ABG pO2 ABG HCO3 ABG O2 Saturation ABG Base Excess VBG pH VBG pCO2 VBG HCO3 VBG Base Excess FiO2 Sodium Potassium Chloride Carbon Dioxide Anion Gap BUN Creatinine Est GFR ( Amer) Glucose Lactic Acid Calcium Magnesium 1.7 Total Bilirubin AST Alkaline Phosphatase Total Protein Albumin 12/24/19 12/24/19 12/24/19 15:00 15:00 18:15 Creatine Kinase 346 H CK-MB (CK-2) 1.89 Troponin I < 0.012 < 0.012 NT-Pro-B Natriuret Pep 107 12/25/19 12/25/19 12/25/19 02:43 02:43 07:17 Creatine Kinase 136 121 CK-MB (CK-2) 1.38 Troponin I < 0.012 NT-Pro-B Natriuret Pep 12/25/19 12/25/19 12/25/19 07:17 13:28 13:28 Creatine Kinase 86 CK-MB (CK-2) 1.09 0.71 Troponin I < 0.012 < 0.012 NT-Pro-B Natriuret Pep Impressions: Head CT 12/24/19 00:00 IMPRESSION: NORMAL BRAIN CT WITHOUT CONTRAST. EVIDENCE OF ACUTE STROKE: NO. Chest/Abdomen CTA 12/24/19 17:44 IMPRESSION: 1. There is no aortic aneurysm or dissection. There is no pulmonary embolus. 2. Small right pneumothorax. (less than 10%). 3. Ground-glass infiltrates in the lower lobes suggests mild pulmonary edema versus chronic interstitial changes. 4. Airspace disease in both lower lobes, right more than left, pneumonia versus atelectasis. Ankle X-Ray 12/24/19 18:02 IMPRESSION: NO FRACTURE. Femur X-Ray 12/24/19 18:02 IMPRESSION: NEGATIVE STUDY OF THE RIGHT FEMUR. NO RADIOGRAPHIC EVIDENCE OF ACUTE INJURY. Hip/Pelvis X-Ray 12/24/19 18:02 IMPRESSION: Negative right hip. Lower lumbar degenerative changes. Knee X-Ray 02/13/20 18:02 IMPRESSION: NEGATIVE STUDY OF THE RIGHT KNEE. NO RADIOGRAPHIC EVIDENCE OF ACUTE INJURY. Tibia/Fibula X-Ray 12/24/19 18:02 IMPRESSION: NO RADIOGRAPHIC EVIDENCE OF ACUTE INJURY. Head MRI 12/24/19 20:57 IMPRESSION: No acute intracranial hemorrhage, mass, or evidence of acute infarct. Mild chronic microvascular ischemic change with generalized atrophy. Bilateral mastoid air cell disease. Nonspecific soft tissue protuberance/signal abnormality located about the right posterior parietal scalp towards the vertex, new from the previous examination dated 07/22/2019. Correlate with physical examination as this could indicate a small soft tissue hematoma. copyright 2010 [employer]- All Rights Reserved Chest X-Ray 12/25/19 00:00 IMPRESSION: Stable chest as above. Diminished basilar aeration. Assessment & Plan - Diagnosis (1) Acute kidney injury Is this a current diagnosis for this admission?: Yes Plan: Most likely secondary to acute prerenal azotemia currently improving with just IV fluid hydration. Continue current management with IV fluids. Avoid nephrotoxic medications. No other renal intervention needed at this time. (2) Dehydration Is this a current diagnosis for this admission?: Yes Plan: Continue IV fluid hydration. (3) Pneumonia of both lower lobes Qualifiers: Pneumonia type: due to unspecified organism Qualified Code(s): J18.9 - Pneumonia, unspecified organism Is this a current diagnosis for this admission?: Yes Plan: On cefepime per Dr. Geiger. (4) Hypertension Qualifiers: Hypertension type: essential hypertension Is this a current diagnosis for this admission?: Yes Plan: Patient was initially hypotensive on presentation which is currently much i mproved after IV fluid hydration. Patient's blood pressure seems to be going back to his baseline. (5) Syncope Qualifiers: Syncope type: unspecified Qualified Code(s): R55 - Syncope and collapse Is this a current diagnosis for this admission?: Yes (6) Type 2 diabetes mellitus Qualifiers: Diabetes mellitus complication status: with other specified complication Is this a current diagnosis for this admission?: Yes - Notes Notes: Thank you very much for this consultation. I expect the patient's kidney function to continue to improve moving forward in the next couple of days. - Time Time Spent: 50 to 70 Minutes
[2019-12-25] MEDS: TAMSULOSIN HCL 0.4 MG CAP.SR.24H PO SCH (17:47)
[2019-12-25] MEDS: MONTELUKAST SODIUM 10 MG TABLET PO SCH (17:47)
[2019-12-25] MEDS: INSULIN GLARGINE,HUM.REC.ANLOG 1,000 UNIT/10 ML VIAL SUBCUT SCH (17:47)
[2019-12-25] MEDS: LIDOCAINE 5% (700 MG) TRANSDERMAL ADH..PATCH TP SCH (18:23)
--- NOTE | 2019-12-25 18:34 | RADIOLOGY REPORT (SQ) ---
EXAM DESCRIPTION: CAROTID DOPPLER COMPLETED DATE/TIME: 12/25/2019 5:17 pm REASON FOR STUDY: Syncopal episode COMPARISON: 01/27/2019 TECHNIQUE: Grayscale ultrasound, Doppler velocity and spectra, and color Doppler images acquired of the extra-cranial carotid and vertebral arteries. Images stored on PACS. LIMITATIONS: None. FINDINGS: RIGHT CAROTID CCA Velocities: Within normal limits. ICA Velocities Peak systolic 88 cm/s. End diastolic 20 sick cm/s. Proximal ICA/CCA peak systolic ratio 1.1. There is smooth plaque in the proximal ICA. LEFT CAROTID CCA Velocities: Within normal limits. ICA Velocities Peak systolic 86 cm/s. End diastolic 33 cm/s. Proximal ICA/CCA peak systolic ratio 1.0. There is plaque in the carotid bulb and proximal ICA. VERTEBRAL ARTERIES: Antegrade flow. Normal waveforms. SUBCLAVIAN ARTERIES: No finding. OTHER: No other significant finding. IMPRESSION: NO HEMODYNAMICALLY SIGNIFICANT STENOSIS. COMMENT: Quality ID #[id number]: Velocity criteria are extrapolated from the diameter data as defined by t he Society of Radiologists in Ultrasound Consensus Conference. Radiology 2003: 229; 340-346. TECHNICAL DOCUMENTATION: JOB ID: [id number] 2010 [employer]- All Rights Reserved Reading location - IP/workstation name: [email or web address]
--- NOTE | 2019-12-25 20:21 | EKG REPORT ---
SEVERITY:- NORMAL ECG - SINUS RHYTHM : Confirmed by: Javad Jennings MD 25-Dec-2019 20:20:34
[2019-12-25] MEDS ORDERED: INSULIN GLARGINE,HUM.REC.ANLOG 1,000 UNIT/10 ML VIAL SUBCUT SCH (22:00)
[2019-12-25] MEDS: ATORVASTATIN CALCIUM 40 MG TABLET PO SCH (22:04)
[2019-12-25] MEDS: TRAMADOL HCL 50 MG TABLET PO PRN (22:11)
[2019-12-26 04:57] LABS: ABSOLUTE LYMPHOCYTES (AUTO) 1.3 10^3/uL (0.5-4.7); ABSOLUTE MONOCYTES (AUTO) 0.7 10^3/uL (0.1-1.4); ABSOLUTE NEUT (AUTO) 4.8 10^3/uL (1.7-8.2); BASOPHILS % (AUTO) 0.5 % (0-2); EOSINOPHILS % (AUTO) 0.4 % (0-6); HEMATOCRIT 41.1 % (37.9-51.0); HEMOGLOBIN 13.5 g/dL (13.5-17.0); LYMPHOCYTES % (AUTO) 18.9 % (13-45); MEAN CORPUSCULAR HGB CONC 32.9 g/dL (32.0-36.0); MEAN CORPUSCULAR VOLUME 79 fl (80-97); MONOCYTES % (AUTO) 10.6 % (3-13); RED BLOOD COUNT 5.19 10^6/uL (4.35-5.55); RED CELL DISTRIBUTION WIDTH 13.9 % (11.5-14.0); SEGMENTED NEUTROPHILS % (AUTO) 69.6 % (42-78); TOTAL CELLS COUNTED % (AUTO) 100 %; WHITE BLOOD COUNT 6.8 10^3/uL (4.0-10.5)
[2019-12-26 05:00] LABS: PLATELET COUNT 244 10^3/uL (150-450)
[2019-12-26] MEDS: TRAMADOL HCL 50 MG TABLET PO PRN ×3 (06:41→21:59)
[2019-12-26] MEDS: INSULIN LISPRO 100 UNIT/ML 3 ML VIAL SUBCUT SCH ×4 (08:03→21:57)
[2019-12-26] MEDS: BUDESONIDE NEB 0.5 MG/2 ML AMPUL NEB SCH ×2 (08:35→20:01)
[2019-12-26] MEDS: IPRATROPIUM/ALBUTEROL 0.5-2.5 MG/3 ML AMPUL NEB SCH ×4 (08:35→20:01)
[2019-12-26] MEDS: PANTOPRAZOLE SODIUM 40 MG VIAL IV SCH ×2 (10:54→21:58)
[2019-12-26] MEDS: AMLODIPINE BESYLATE 10 MG TABLET PO SCH (10:55)
[2019-12-26] MEDS: FLUTICASONE/UMECLIDIN/VILANTER 100-62.5-25 MCG/DOSE IH SCH (10:55)
[2019-12-26] MEDS: INSULIN GLARGINE,HUM.REC.ANLOG 1,000 UNIT/10 ML VIAL SUBCUT SCH ×2 (10:55→17:10)
[2019-12-26] MEDS: NORMAL SALINE 1000 ML 1,000 ML IV PRN ×2 (10:55→21:58)
[2019-12-26] MEDS: METOPROLOL TARTRATE 25 MG TABLET PO SCH ×2 (10:55→21:57)
[2019-12-26] MEDS: MECLIZINE HCL 12.5 MG TABLET PO SCH (10:55)
[2019-12-26] MEDS: ENOXAPARIN SODIUM INJ 40 MG/0.4 ML DISP.SYRIN SUBCUT SCH (10:56)
[2019-12-26] MEDS: CEFEPIME 1 GM/D5W RTU 1 GM/50 ML RTUPB IV SCH ×2 (10:56→22:15)
[2019-12-26] MEDS: LIDOCAINE 5% (700 MG) TRANSDERMAL ADH..PATCH TP SCH (17:09)
[2019-12-26] MEDS: TAMSULOSIN HCL 0.4 MG CAP.SR.24H PO SCH (17:09)
[2019-12-26] MEDS: MONTELUKAST SODIUM 10 MG TABLET PO SCH (17:09)
--- NOTE | 2019-12-26 17:48 | PDOC PROGRESS REPORT ---
Subjective Progress Note for:: 12/26/19 Subjective:: Patient reported right sided chest pain with unproductive cough. No fever or chills. Breathing improving. No nausea, vomiting, or abdominal pain. Reason For Visit: SOB, PNEUMONIA Physical Exam Vital Signs: Temp Pulse Resp BP Pulse Ox 98.8 F 67 18 153/72 H 89 L 12/26/19 15:08 12/26/19 16:01 12/26/19 16:01 12/26/19 15:08 12/26/19 16:01 Intake & Output 12/25/19 12/26/19 12/27/19 06:59 06:59 06:59 Intake Total 1100 2387 580 Output Total 350 2225 450 Balance 750 162 130 Weight 85.9 kg 86.5 kg General appearance: PRESENT: mild distress - on supplemental oxygen via nasal cannula, obese Head exam: PRESENT: atraumatic, normocephalic Eye exam: PRESENT: conjunctiva pink. ABSENT: scleral icterus Ear exam: PRESENT: normal external ear exam Mouth exam: PRESENT: moist Cardiovascular exam: PRESENT: RRR. ABSENT: diastolic murmur, rubs, systolic murmur Vascular exam: ABSENT: pallor GI/Abdominal exam: PRESENT: normal bowel sounds, soft. ABSENT: distended, guarding, mass, organolmegaly, rebound, tenderness Extremities exam: ABSENT: pedal edema Neurological exam: PRESENT: alert, awake, oriented to person, oriented to place, oriented to time, oriented to situation, CN II-XII grossly intact. ABSENT: motor sensory deficit Psychiatric exam: PRESENT: appropriate affect, normal mood. ABSENT: homicidal ideation, suicidal ideation Skin exam: PRESENT: dry, warm Results Laboratory Results: 12/26/19 04:05 12/25/19 02:43 12/26/19 12/26/19 04:05 04:05 WBC 6.8 RBC 5.19 Hgb 13.5 Hct 41.1 MCV 79 L MCH 26.0 L MCHC 32.9 RDW 13.9 Plt Count 244 D Seg Neutrophils % 69.6 Magnesium 1.7 12/24/19 12/24/19 12/24/19 15:00 15:00 18:15 Creatine Kinase 346 H CK-MB (CK-2) 1.89 Troponin I < 0.012 < 0.012 NT-Pro-B Natriuret Pep 107 12/25/19 12/25/19 12/25/19 02:43 02:43 07:17 Creatine Kinase 136 121 CK-MB (CK-2) 1.38 Troponin I < 0.012 NT-Pro-B Natriuret Pep 12/25/19 12/25/19 12/25/19 07:17 13:28 13:28 Creatine Kinase 86 CK-MB (CK-2) 1.09 0.71 Troponin I < 0.012 < 0.012 NT-Pro-B Natriuret Pep Impressions: Head CT 12/24/19 00:00 IMPRESSION: NORMAL BRAIN CT WITHOUT CONTRAST. EVIDENCE OF ACUTE STROKE: NO. Chest/Abdomen CTA 12/24/19 17:44 IMPRESSION: 1. There is no aortic aneurysm or dissection. There is no pulmonary embolus. 2. Small right pneumothorax. (less than 10%). 3. Ground-glass infiltrates in the lower lobes suggests mild pulmonary edema versus chronic interstitial changes. 4. Airspace disease in both lower lobes, right more than left, pneumonia versus atelectasis. Ankle X-Ray 12/24/19 18:02 IMPRESSION: NO FRACTURE. Femur X-Ray 12/24/19 18:02 IMPRESSION: NEGATIVE STUDY OF THE RIGHT FEMUR. NO RADIOGRAPHIC EVIDENCE OF ACUTE INJURY. Hip/Pelvis X-Ray 12/24/19 18:02 IMPRESSION: Negative right hip. Lower lumbar degenerative changes. Knee X-Ray 12/24/19 18:02 IMPRESSION: NEGATIVE STUDY OF THE RIGHT KNEE. NO RADIOGRAPHIC EVIDENCE OF ACUTE INJURY. Tibia/Fibula X-Ray 12/24/19 18:02 IMPRESSION: NO RADIOGRAPHIC EVIDENCE OF ACUTE INJURY. Head MRI 12/24/19 20:57 IMPRESSION: No acute intracranial hemorrhage, mass, or evidence of acute infarct. Mild chronic microvascular ischemic change with generalized atrophy. Bilateral mastoid air cell disease. Nonspecific soft tissue protuberance/signal abnormality located about the right posterior parietal scalp towards the vertex, new from the previous examination dated 07/22/2019. Correlate with physical examination as this could indicate a small soft tissue hematoma. copyright 2010 [employer]- All Rights Reserved Carotid Doppler Study 12/25/19 00:00 IMPRESSION: NO HEMODYNAMICALLY SIGNIFICANT STENOSIS. Chest X-Ray 12/25/19 00:00 IMPRESSION: Stable chest as above. Diminished basilar aeration. Assessment & Plan - Diagnosis (1) Pneumonia of both lower lobes Qualifiers: Pneumonia type: due to unspecified organism Qualified Code(s): J18.9 - Pneumonia, unspecified organism Is this a current diagnosis for this admission?: Yes Plan: Continue IV Cefepime coverage. Start on bedside Flutter and Incentive spirometer usage. (2) COPD (chronic obstructive pulmonary disease) Qualifiers: COPD type: chronic bronchitis Is this a current diagnosis for this admission?: Yes Plan: continue current medication management. (3) Hypertension Qualifiers: Hypertension type: essential hypertension Is this a current diagnosis for this admission?: Yes Plan: Continue Amlodipine and Metoprolol coverage. Decrease IV fluid to 75 ml/hour. (4) Type 2 diabetes mellitus Qualifiers: Diabetes mellitus complication status: with other specified complication Is this a current diagnosis for this admission?: Yes Plan: Continue current medication management. - Time Time Spent with patient: 25-34 minutes Level of Care: IMCU Medications reviewed and adjusted accordingly: Yes Anticipated discharge: Home with Homehealth Within: Other - Inpatient Certification Based on my medical assessment, after consideration of the patient's comorbidities, presenting symptoms, or acuity I expect that the services needed warrant INPATIENT care.: Yes I certify that my determination is in accordance with my understanding of Medicare's requirements for reasonable and necessary INPATIENT services [42 CFR 412.3e].: Yes Medical Necessity: Significant Comorbidiites Make Outpatient Treatment Too Risky, Need Close Monitoring Due to Risk of Patient Decompensation, Need For IV Fluids, Need For Continuous Telemetry Monitoring, Need for IV Antibiotics, Risk of Complication if Not Cared For in Hospital, Risk of Diagnosis Which Will Require Inpatient Eval/Care/Monitoring Post Hospital Care: D/C Juvenile Counselor Documentation - Plan Summary Plan Summary: Continue current medication management Obtain CBC with diff and CMP in AM.
[2019-12-26] MEDS: BENZONATATE 100 MG CAPSULE PO SCH (21:57)
[2019-12-26] MEDS: ATORVASTATIN CALCIUM 40 MG TABLET PO SCH (21:57)
--- NOTE | 2019-12-26 21:59 | Progress Note ---
Provider Note Provider Note: CARDIOLOGY PROGRESS NOTE by Dr. Sushma Washington on 12/26/2019. SUBJECTIVE: There is been no further episodes of syncope. There is no arrhythmia seen on the monitor atrial or ventricular. The patient still complains of right-sided chest wall pain. This is due to the patient's fall after the syncopal episode. He still states that he is coughing with occasional sputum production which is slightly whitish in color. Otherwise is clear. There is no wheezing. There is no PND. There is no orthopnea. There is no TIA CVA symptoms. The patient and the states that he has had multiple heart attacks in the past and stents. He also states that his heart is working only 50%. Hence the patient most likely has cardiomyopathy. Records have been requested. PHYSICAL EXAMINATION: The patient is a normal build but looks to be chronically ill. But he is in no acute distress. Selected Entries 12/26/19 10:49 Temperature 98.8 F Temperature Oral Source Pulse Rate 67 Respiratory 22 H Rate Blood Pressure 161/79 H Blood Pressure 106 Mean BP Location Right Arm BP Position Supine O2 Sat by Pulse 90 L Oximetry Oxygen Flow 6.00 Rate Oxygen Delivery Nasal Cannula Method HEAD: Is atraumatic normocephalic. EYES: Pupils are equal round regular reactive to light accommodation. Extraocular movements are normal. There is no conjunctival pallor. There is no scleral icterus. Ears: Tympanic membranes are intact. External auditory canals are clear. NOSE: There is no deviated nasal septum. There is no inflammation nasal mucous membrane. MOUTH: Mucous membranes of the mouth are moist the tongue is moist. There is no ulcers. THROAT: There is no redness of the oropharynx. There is no exudates. SKIN: There is no skin rashes or skin lesions. There is no petechiae. There is some mild ecchymosis in the right chest wall. NECK: Supple. There is no JVD. Ca rotids are equal there is no bruit. There is no lymphadenopathy. There is no goiter. There is no accessory muscle respiration use. TRACHEA: Is central. LUNGS: There is diminished air entry prolonged expiration. There is a few occasional rhonchi. There is no rales of CHF. There is no crackles of pneumonia. On percussion there is hyperresonance. There is significant chest wall tenderness in the right side of the chest. This is reproducible by pressing on the chest wall. There is no pleural rub. HEART: S1-S2 is heard. There is no S3 gallop. There is no S4 gallop. There is systolic murmur left sternal border and the apex there is no rub. ABDOMEN: Soft. There is nontender. There is no paraspinal megaly. Bowel sounds are well heard. EXTREMITIES: Femorals are diminished. There is no femoral bruits. Leg pulses are diminished. There is no pedal edema. There is no DVT or cellulitis. There is no calf tenderness. 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 PSYCHIATRIC: The patient judgment insight are intact her affect is normal. Labs- All tests 24 hr 12/25/19 12/26/19 12/26/19 22:13 04:05 04:05 WBC 6.8 RBC 5.19 Hgb 13.5 Hct 41.1 MCV 79 L MCH 26.0 L MCHC 32.9 RDW 13.9 Plt Count 244 D Lymph % (Auto) 18.9 [place] % (Auto) 10.6 Eos % (Auto) 0.4 Baso % (Auto) 0.5 Absolute Neuts (auto) 4.8 Absolute Lymphs (auto) 1.3 Absolute Monos (auto) 0.7 Absolute Eos (auto) 0.0 Absolute Basos (auto) 0.0 Seg Neutrophils % 69.6 POC Glucose 327 H Magnesium 1.7 12/26/19 12/26/19 12/26/19 07:55 10:50 16:10 WBC RBC Hgb Hct MCV MCH MCHC RDW Plt Count Lymph % (Auto) [place] % (Auto) Eos % (Auto) Baso % (Auto) Absolute Neuts (auto) Absolute Lymphs (auto) Absolute Monos (auto) Absolute Eos (auto) Absolute Basos (auto) Seg Neutrophils % POC Glucose 257 H 265 H 265 H Magnesium 12/26/19 21:02 WBC RBC Hgb Hct MCV MCH MCHC RDW Plt Count Lymph % (Auto) [place] % (Auto) Eos % (Auto) Baso % (Auto) Absolute Neuts (auto) Absolute Lymphs (auto) Absolute Monos (auto) Absolute Eos (auto) Absolute Basos (auto) Seg Neutrophils % POC Glucose 244 H Magnesium Chest X-Ray 12/24/19 00:00 IMPRESSION: FAINT DENSITIES IN THE LUNG BASES WHICH MAY BE DUE TO ATELECTASIS VERSUS DEVELOPING PNEUMONIA. Head CT 12/24/19 00:00 IMPRESSION: NORMAL BRAIN CT WITHOUT CONTRAST. EVIDENCE OF ACUTE STROKE: NO. Chest/Abdomen CTA 12/24/19 17:44 IMPRESSION: 1. There is no aortic aneurysm or dissection. There is no pulmonary embolus. 2. Small right pneumothorax. (less than 10%). 3. Ground-glass infiltrates in the lower lobes suggests mild pulmonary edema versus chronic interstitial changes. 4. Airspace disease in both lower lobes, right more than left, pneumonia versus atelectasis. Ankle X-Ray 12/24/19 18:02 IMPRESSION: NO FRACTURE. Femur X-Ray 12/24/19 18:02 IMPRESSION: NEGATIVE STUDY OF THE RIGHT FEMUR. NO RADIOGRAPHIC EVIDENCE OF ACUTE INJURY. Hip/Pelvis X-Ray 12/24/19 18:02 IMPRESSION: Negative right hip. Lower lumbar degenerative changes. Knee X-Ray 12/24/19 18:02 IMPRESSION: NEGATIVE STUDY OF THE RIGHT KNEE. NO RADIOGRAPHIC EVIDENCE OF ACUTE INJURY. Tibia/Fibula X-Ray 12/24/19 18:02 IMPRESSION: NO RADIOGRAPHIC EVIDENCE OF ACUTE INJURY. Head MRI 12/24/19 20:57 IMPRESSION: No acute intracranial hemorrhage, mass, or evidence of acute infarct. Mild chronic microvascular ischemic change with generalized atrophy. Bilateral mastoid air cell disease. Nonspecific soft tissue protuberance/signal abnormality located about the right posterior parietal scalp towards the vertex, new from the previous examination dated 07/22/2019. Correlate with physical examination as this could indicate a small soft tissue hematoma. copyright 2010 [employer]- All Rights Reserved Carotid Doppler Study 12/25/19 00:00 IMPRESSION: NO HEMODYNAMICALLY SIGNIFICANT STENOSIS. Chest X-Ray 12/25/19 00:00 IMPRESSION: Stable chest as above. Diminished basilar aeration. IMPRESSION/RECOMMENDATION: 1. Syncope: Etiology still not clear. Note that the patient states he had a coughing spell and felt weak and sat down. Subsequently the patient stood up and that is when he became syncopal. He states he is not sure how long he was syncopal. He states when he woke up he was confused. Hence this seems to be either secondary to orthostatic hypotension or orthopnea or TIA. The patient ding s no prior history of CVA. But the patient also claims that he has is LV function is only 50% of normal. Hence the patient would like would be recommended to have a 30-day event monitor. We will check her echo in the morning. Note that the patient has no anginal symptoms and had no anginal chest pains or palpitations or shortness of breath prior to or after the syncopal episode. His cardiac enzymes are negative and his EKG is normal. 2. Bibasilar pneumonia 3. Acute acute renal failure on? Chronic renal failure. GFR slightly improved. Will recheck SMA-7 tomorrow. 4. COPD: Seems to be at baseline. Patient on oxygen. Continue anti-COPD treatment. 5. Diabetes mellitus: Continue diabetic medication and Accu-Cheks as per protocol. 6. Hypertension: Blood pressure slightly elevated this is probably due to pain due to his chest wall contusion. 7. Right-sided chest pain secondary to fall and chest wall contusion. Also the patient is a small sided pneumothorax. This pain could be contributing to the patient's high blood pressure. Would recommend significant analgesics to for pain control since this cannot only cause his blood pressure to go up, but also can cause him to breathe shallowly leading to respiratory complications. Medications reviewed. Medical regimen and management plan discussed with attending physician. At present cardiac darby medical regimen decision making is of moderate complexity. 40 minutes spent on this patient with more than 50% of time spent in direct patient care. Discussed with the patient and patient's .
[2019-12-26] MEDS: ACETAMINOPHEN 325 MG TABLET PO PRN (23:43)
[2019-12-27] MEDS: TRAMADOL HCL 50 MG TABLET PO PRN ×3 (04:03→19:30)
[2019-12-27 04:57] LABS: ABSOLUTE EOSINOPHILS # (AUTO) 0.1 10^3/uL (0.0-0.6); ABSOLUTE LYMPHOCYTES (AUTO) 1.7 10^3/uL (0.5-4.7); ABSOLUTE MONOCYTES (AUTO) 0.7 10^3/uL (0.1-1.4); ABSOLUTE NEUT (AUTO) 4.8 10^3/uL (1.7-8.2); BASOPHILS % (AUTO) 0.7 % (0-2); EOSINOPHILS % (AUTO) 1.1 % (0-6); HEMATOCRIT 37.3 % (37.9-51.0); HEMOGLOBIN 12.3 g/dL (13.5-17.0); MEAN CORPUSCULAR HEMOGLOBIN 25.9 pg (27.0-33.4); MEAN CORPUSCULAR HGB CONC 32.9 g/dL (32.0-36.0); MEAN CORPUSCULAR VOLUME 79 fl (80-97); MONOCYTES % (AUTO) 9.3 % (3-13); PLATELET COUNT 256 10^3/uL (150-450); RED BLOOD COUNT 4.75 10^6/uL (4.35-5.55); SEGMENTED NEUTROPHILS % (AUTO) 65.9 % (42-78); TOTAL CELLS COUNTED % (AUTO) 100 %; WHITE BLOOD COUNT 7.2 10^3/uL (4.0-10.5)
[2019-12-27] MEDS: BENZONATATE 100 MG CAPSULE PO SCH ×3 (05:21→22:11)
[2019-12-27] MEDS: BUDESONIDE NEB 0.5 MG/2 ML AMPUL NEB SCH ×2 (07:39→21:00)
[2019-12-27] MEDS: IPRATROPIUM/ALBUTEROL 0.5-2.5 MG/3 ML AMPUL NEB SCH ×4 (07:39→21:00)
[2019-12-27] MEDS: NORMAL SALINE 1000 ML 1,000 ML IV PRN (07:59)
[2019-12-27] MEDS: INSULIN LISPRO 100 UNIT/ML 3 ML VIAL SUBCUT SCH ×4 (07:59→22:11)
[2019-12-27] MEDS: INSULIN GLARGINE,HUM.REC.ANLOG 1,000 UNIT/10 ML VIAL SUBCUT SCH ×2 (09:38→17:19)
[2019-12-27] MEDS: ENOXAPARIN SODIUM INJ 40 MG/0.4 ML DISP.SYRIN SUBCUT SCH (09:38)
[2019-12-27] MEDS: METOPROLOL TARTRATE 25 MG TABLET PO SCH ×2 (09:39→22:11)
[2019-12-27] MEDS: MECLIZINE HCL 12.5 MG TABLET PO SCH (09:39)
[2019-12-27] MEDS: FLUTICASONE/UMECLIDIN/VILANTER 100-62.5-25 MCG/DOSE IH SCH (09:39)
[2019-12-27] MEDS: AMLODIPINE BESYLATE 10 MG TABLET PO SCH (09:39)
[2019-12-27] MEDS: PANTOPRAZOLE SODIUM 40 MG VIAL IV SCH ×2 (09:39→22:12)
[2019-12-27] MEDS: CEFEPIME 1 GM/D5W RTU 1 GM/50 ML RTUPB IV SCH ×2 (09:39→22:12)
--- NOTE | 2019-12-27 13:49 | Progress Note ---
Provider Note Provider Note: CARDIOLOGY PROGRESS NOTE on 12/27/2019. SUBJECTIVE: The patient still complains of chest wall pain and also is not able to stand due to pain in the legs due to fall. There is no arrhythmia seen on the monitor. The patient has no chest pain or discomfort. There is no shortness of breath. There is no PND orthopnea. The patient's oxygen saturation is good but the patient is on 5 L by nasal cannula. There is no arrhythmia seen on the monitor. There is no leg edema. There is no TIA CVA symptoms seen. Still awaiting records from [facility]. PHYSICAL EXAMINATION: The patient is well-built. In no acute distress. Selected Entries 12/27/19 12/27/19 11:19 11:42 Temperature 97.7 F Pulse Rate 63 Respiratory 18 Rate Blood Pressure 152/74 H Blood Pressure 100 Mean O2 Sat by Pulse 94 Oximetry Oxygen Flow 5 Rate HEAD: Is atraumatic normocephalic. EYES: Pupils are equal round regular reactive to light accommodation. Extraocular movements are normal. There is no conjunctival pallor. There is no scleral icterus. Ears: Tympanic membranes are intact. External auditory canals are clear. NOSE: There is no deviated nasal septum. There is no inflammation nasal mucous membrane. MOUTH: Mucous membranes of the mouth are moist the tongue is moist. There is no ulcers. THROAT: There is no redness of the oropharynx. There is no exudates. SKIN: There is no skin rashes or skin lesions. There is no petechiae. There is some mild ecchymosis in the right chest wall. NECK: Supple. There is no JVD. Carotids are equal there is no bruit. There is no lymphadenopathy. There is no goiter. There is no accessory muscle respiration use. TRACHEA: Is central. LUNGS: There is diminished air entry prolonged expiration. There is a few occasional rhonchi. There is no rales of CHF. There is no crackles of pneumonia. On percussion there is hyperresonance. There is significant chest wall tenderness in the right side of the chest. This is reproducible by pressing on the chest wall. There is no pleural rub. HEART: S1-S2 is heard. There is no S3 gallop. There is no S4 gallop. There is systolic murmur left sternal border and the apex there is no rub. ABDOMEN: Soft. There is nontender. There is no paraspinal megaly. Bowel sounds are well heard. EXTREMITIES: Femorals are diminished. There is no femoral bruits. Leg pulses are diminished. There is no pedal edema. There is no DVT or cellulitis. There is no calf tenderness. 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 PSYCHIATRIC: The patient judgment insight are intact her affect is normal. Labs- All tests 24 hr 12/26/19 12/26/19 12/27/19 16:10 21:02 04:17 WBC 7.2 RBC 4.75 Hgb 12.3 L Hct 37.3 L MCV 79 L MCH 25.9 L MCHC 32.9 RDW 14.0 Plt Count 256 Lymph % (Auto) 23.0 [place] % (Auto) 9.3 Eos % (Auto) 1.1 Baso % (Auto) 0.7 Absolute Neuts (auto) 4.8 Absolute Lymphs (auto) 1.7 Absolute Monos (auto) 0.7 Absolute Eos (auto) 0.1 Absolute Basos (auto) 0.0 Seg Neutrophils % 65.9 POC Glucose 265 H 244 H Magnesium 12/27/19 12/27/19 12/27/19 04:17 07:50 11:52 WBC RBC Hgb Hct MCV MCH MCHC RDW Plt Count Lymph % (Auto) [place] % (Auto) Eos % (Auto) Baso % (Auto) Absolute Neuts (auto) Absolute Lymphs (auto) Absolute Monos (auto) Absolute Eos (auto) Absolute Basos (auto) Seg Neutrophils % POC Glucose 230 H 249 H Magnesium 1.8 Chest X-Ray 12/24/19 00:00 IMPRESSION: FAINT DENSITIES IN THE LUNG BASES WHICH MAY BE DUE TO ATELECTASIS VERSUS DEVELOPING PNEUMONIA. Head CT 12/24/19 00:00 IMPRESSION: NORMAL BRAIN CT WITHOUT CONTRAST. EVIDENCE OF ACUTE STROKE: NO. Chest/Abdomen CTA 12/24/19 17:44 IMPRESSION: 1. There is no aortic aneurysm or dissection. There is no pulmonary embolus. 2. Small right pneumothorax. (less than 10%). 3. Ground-glass infiltrates in the lower lobes suggests mild pulmonary edema versus chronic interstitial changes. 4. Airspace disease in both lower lobes, right more than left, pneumonia versus atelectasis. Ankle X-Ray 12/24/19 18:02 IMPRESSION: NO FRACTURE. Femur X-Ray 12/24/19 18:02 IMPRESSION: NEGATIVE STUDY OF THE RIGHT FEMUR. NO RADIOGRAPHIC EVIDENCE OF ACUTE INJURY. Hip/Pelvis X-Ray 12/24/19 18:02 IMPRESSION: Negative right hip. Lower lumbar degenerative changes. Knee X-Ray 12/24/19 18:02 IMPRESSION: NEGATIVE STUDY OF THE RIGHT KNEE. NO RADIOGRAPHIC EVIDENCE OF ACUTE INJURY. Tibia/Fibula X-Ray 12/24/19 18:02 IMPRESSION: NO RADIOGRAPHIC EVIDENCE OF ACUTE INJURY. Head MRI 12/24/19 20:57 IMPRESSION: No acute intracranial hemorrhage, mass, or evidence of acute infarct. Mild chronic microvascular ischemic change with generalized atrophy. Bilateral mastoid air cell disease. Nonspecific soft tissue protuberance/signal abnormality located about the right posterior parietal scalp towards the vertex, new from the previous examination dated 07/22/2019. Correlate with physical examination as this could indicate a small soft tissue hematoma. copyright 2010 [employer]- All Rights Reserved Carotid Doppler Study 12/25/19 00:00 IMPRESSION: NO HEMODYNAMICALLY SIGNIFICANT STENOSIS. Chest X-Ray 12/25/19 00:00 IMPRESSION: Stable chest as above. Diminished basilar aeration. IMPRESSION/RECOMMENDATION: 1. Syncope: Etiology still not clear. Note that the patient states he had a coughing spell and felt weak and sat down. Subsequently the patient stood up and that is when he became syncopal. He states he is not sure how long he was syncopal. He states when he woke up he was confused. Hence this seems to be either secondary to orthostatic hypotension or orthopnea or TIA. The patient has no prior history of CVA. But the patient also claims that he has is LV function is only 50% of normal. Hence the patient would like would be recommended to have a 30-day event monitor. We will check her echo in the morning. Note that the patient has no anginal symptoms and had no anginal chest pains or palpitations or shortness of breath prior to or after the syncopal episode. His cardiac enzymes are negative and his EKG is normal. 2. Bibasilar pneumonia 3. Acute acute renal failure on? Chronic renal failure. GFR slightly improved. Will recheck SMA-7 tomorrow. 4. COPD: Seems to be at baseline. Patient on oxygen. Continue anti-COPD treatment. 5. Diabetes mellitus: Continue diabetic medication and Accu-Cheks as per protocol. 6. Hypertension: Blood pressure slightly elevated this is probably due to pain due to his chest wall contusion. 7. Right-sided chest pain secondary to fall and chest wall contusion. Also the patient is a small sided pneumothorax. This pain could be contributing to the patient's high blood pressure. Would recommend significant analgesics to for pain control since this cannot only cause his blood pressure to go up, but also can cause him to breathe shallowly leading to respiratory complications. Medications reviewed. Medical regimen and management plan discussed with attending physician. At present cardiac darby medical regimen decision making is of moderate complexity. 40 minutes spent on this patient with more than 50% of time spent in direct patient care.
[2019-12-27] MEDS ORDERED: NORMAL SALINE 1000 ML 1,000 ML IV PRN (14:31)
--- NOTE | 2019-12-27 15:48 | PDOC PROGRESS REPORT ---
Subjective Progress Note for:: 12/27/19 Subjective:: Patient denied fever or chills. No chest pain and breathing is improving. No nausea, vomiting, or abdominal pain. Reason For Visit: SOB, PNEUMONIA Physical Exam Vital Signs: Temp Pulse Resp BP Pulse Ox 97.7 F 69 18 152/74 H 94 12/27/19 11:42 12/27/19 14:00 12/27/19 11:19 12/27/19 11:42 12/27/19 11:42 Intake & Output 12/26/19 12/27/19 12/28/19 06:59 06:59 06:59 Intake Total 2387 2737 2368 Output Total 2225 2350 460 Balance 829 895 8962 Weight 86.5 kg 86.6 kg Physical Exam: General appearance: PRESENT: mild distress - on supplemental oxygen via nasal cannula, obese Head exam: PRESENT: atraumatic, normocephalic Eye exam: PRESENT: conjunctiva pink. ABSENT: pallor, scleral icterus Ear exam: PRESENT: normal external ear exam Mouth exam: PRESENT: moist Cardiovascular exam: PRESENT: RRR. ABSENT: diastolic murmur, rubs, systolic murmur GI/Abdominal exam: PRESENT: normal bowel sounds, soft. ABSENT: distended, guarding, mass, organomegaly, rebound, tenderness Extremities exam: ABSENT: pedal edema Neurological exam: PRESENT: alert, awake, oriented to person, oriented to place, oriented to time, oriented to situation, CN II-XII grossly intact. ABSENT: motor sensory deficit Psychiatric exam: PRESENT: appropriate affect, normal mood. ABSENT: homicidal ideation, suicidal ideation Skin exam: PRESENT: dry, warm Results Laboratory Results: 12/27/19 04:17 12/25/19 02:43 12/27/19 12/27/19 04:17 04:17 WBC 7.2 RBC 4.75 Hgb 12.3 L Hct 37.3 L MCV 79 L MCH 25.9 L MCHC 32.9 RDW 14.0 Plt Count 256 Seg Neutrophils % 65.9 Magnesium 1.8 12/24/19 12/24/19 12/24/19 15:00 15:00 18:15 Creatine Kinase 346 H CK-MB (CK-2) 1.89 Troponin I < 0.012 < 0.012 NT-Pro-B Natriuret Pep 107 0212/25/19 12/25/19 02:43 02:43 07:17 Creatine Kinase 136 121 CK-MB (CK-2) 1.38 Troponin I < 0.012 NT-Pro-B Natriuret Pep 12/25/19 12/25/19 12/25/19 07:17 13:28 13:28 Creatine Kinase 86 CK-MB (CK-2) 1.09 0.71 Troponin I < 0.012 < 0.012 NT-Pro-B Natriuret Pep Impressions: Head CT 12/24/19 00:00 IMPRESSION: NORMAL BRAIN CT WITHOUT CONTRAST. EVIDENCE OF ACUTE STROKE: NO. Chest/Abdomen CTA 12/24/19 17:44 IMPRESSION: 1. There is no aortic aneurysm or dissection. There is no pul monary embolus. 2. Small right pneumothorax. (less than 10%). 3. Ground-glass infiltrates in the lower lobes suggests mild pulmonary edema versus chronic interstitial changes. 4. Airspace disease in both lower lobes, right more than left, pneumonia versus atelectasis. Ankle X-Ray 12/24/19 18:02 IMPRESSION: NO FRACTURE. Femur X-Ray 12/24/19 18:02 IMPRESSION: NEGATIVE STUDY OF THE RIGHT FEMUR. NO RADIOGRAPHIC EVIDENCE OF ACUTE INJURY. Hip/Pelvis X-Ray 12/24/19 18:02 IMPRESSION: Negative right hip. Lower lumbar degenerative changes. Knee X-Ray 12/24/19 18:02 IMPRESSION: NEGATIVE STUDY OF THE RIGHT KNEE. NO RADIOGRAPHIC EVIDENCE OF ACUTE INJURY. Tibia/Fibula X-Ray 12/24/19 18:02 IMPRESSION: NO RADIOGRAPHIC EVIDENCE OF ACUTE INJURY. Head MRI 12/24/19 20:57 IMPRESSION: No acute intracranial hemorrhage, mass, or evidence of acute infarct. Mild chronic microvascular ischemic change with generalized atrophy. Bilateral mastoid air cell disease. Nonspecific soft tissue protuberance/signal abnormality located about the right posterior parietal scalp towards the vertex, new from the previous examination dated 07/22/2019. Correlate with physical examination as this could indicate a small soft tissue hematoma. copyright 2010 [employer]- All Rights Reserved Carotid Doppler Study 12/25/19 00:00 IMPRESSION: NO HEMODYNAMICALLY SIGNIFICANT STENOSIS. Chest X-Ray 12/25/19 00:00 IMPRESSION: Stable chest as above. Diminished basilar aeration. Assessment & Plan - Diagnosis (1) Pneumonia of both lower lobes Qualifiers: Pneumonia type: due to unspecified organism Qualified Code(s): J18.9 - Pneumonia, unspecified organism Is this a current diagnosis for this admission?: Yes (2) COPD (chronic obstructive pulmonary disease) Qualifiers: COPD type: chronic bronchitis Is this a current diagnosis for this admission?: Yes (3) Hypertension Qualifiers: Hypertension type: essential hypertension Is this a current diagnosis for this admission?: Yes (4) Type 2 diabetes mellitus Qualifiers: Diabetes mellitus complication status: with other specified complication Is this a current diagnosis for this admission?: Yes - Time Time Spent with patient: 25-34 minutes Level of Care: IMCU Medications reviewed and adjusted accordingly: Yes Anticipated discharge: Home with Homehealth Within: Other - Inpatient Certification Based on my medical assessment, after consideration of the patient's comorbidities, presenting symptoms, or acuity I expect that the services needed warrant INPATIENT care.: Yes I certify that my determination is in accordance with my understanding of 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 Emphasized use of Flutter and incentive spirometer usage. Decrease IV fluid rate to 50 ml/hour. Obtain CMP in AM.
[2019-12-27] MEDS: TAMSULOSIN HCL 0.4 MG CAP.SR.24H PO SCH (17:19)
[2019-12-27] MEDS: MONTELUKAST SODIUM 10 MG TABLET PO SCH (17:19)
[2019-12-27] MEDS: LIDOCAINE 5% (700 MG) TRANSDERMAL ADH..PATCH TP SCH (17:20)
[2019-12-27] MEDS: ACETAMINOPHEN 325 MG TABLET PO PRN (22:10)
[2019-12-27] MEDS: ATORVASTATIN CALCIUM 40 MG TABLET PO SCH (22:11)
[2019-12-28] MEDS: TRAMADOL HCL 50 MG TABLET PO PRN (03:25)
[2019-12-28] MEDS: BENZONATATE 100 MG CAPSULE PO SCH ×3 (05:09→22:00)
[2019-12-28 06:56] LABS: ALBUMIN 3.1 g/dL (3.5-5.0); ALKALINE PHOSPHATASE 60 U/L (38-126); ANION GAP 5 (5-19); ASPARTATE AMINO TRANSFERASE 15 U/L (17-59); BILIRUBIN,DIRECT 0.1 mg/dL (0.0-0.4); BILIRUBIN,TOTAL 0.6 mg/dL (0.2-1.3); BLOOD UREA NITROGEN 22 mg/dL (7-20); CARBON DIOXIDE 27 mmol/L (22-30); CHLORIDE 105 mmol/L (98-107); GLUCOSE 194 mg/dL (75-110); POTASSIUM 4.3 mmol/L (3.6-5.0); TOTAL PROTEIN 6.2 g/dL (6.3-8.2)
[2019-12-28] MEDS: BUDESONIDE NEB 0.5 MG/2 ML AMPUL NEB SCH ×2 (07:56→20:26)
[2019-12-28] MEDS: IPRATROPIUM/ALBUTEROL 0.5-2.5 MG/3 ML AMPUL NEB SCH ×4 (07:56→20:26)
[2019-12-28] MEDS: INSULIN LISPRO 100 UNIT/ML 3 ML VIAL SUBCUT SCH ×4 (08:30→22:41)
--- NOTE | 2019-12-28 09:04 | PDOC PROGRESS REPORT ---
Subjective Progress Note for:: 12/28/19 Subjective:: Patient is currently doing fair Patient's denied any chest pain no short of breath No events happens during the weekends Patient still feels very weak Reason For Visit: SOB, PNEUMONIA Physical Exam Vital Signs: Temp Pulse Resp BP Pulse Ox 97.9 F 70 20 173/69 H 94 12/28/19 03:56 12/28/19 07:00 12/28/19 03:56 12/28/19 03:56 12/28/19 03:56 Intake & Output 12/27/19 12/28/19 12/29/19 06:59 06:59 06:59 Intake Total 2737 3380 438 Output Total 2350 1855 Balance 387 1525 438 Weight 86.6 kg 87.3 kg General appearance: PRESENT: no acute distress, well-developed, well-nourished Head exam: PRESENT: atraumatic, normocephalic Eye exam: PRESENT: conjunctiva pink, EOMI, PERRLA. ABSENT: scleral icterus Ear exam: PRESENT: normal external ear exam Mouth exam: PRESENT: moist, tongue midline Neck exam: PRESENT: full ROM. ABSENT: carotid bruit, JVD, lymphadenopathy, thyromegaly Respiratory exam: PRESENT: clear to auscultation raya Cardiovascular exam: PRESENT: RRR. ABSENT: diastolic murmur, rubs, systolic murmur Pulses: PRESENT: normal dorsalis pedis pul, +2 pedal pulses bilateral Vascular exam: PRESENT: normal capillary refill GI/Abdominal exam: PRESENT: normal bowel sounds, soft. ABSENT: distended, guarding, mass, organolmegaly, rebound, tenderness Rectal exam: PRESENT: deferred Extremities exam: ABSENT: pedal edema Musculoskeletal exam: PRESENT: ambulatory Neurological exam: PRESENT: alert, awake, oriented to person, oriented to place, oriented to time, oriented to situation, CN II-XII grossly intact. ABSENT: motor sensory deficit Psychiatric exam: PRESENT: appropriate affect, normal mood. ABSENT: homicidal ideation, suicidal ideation Skin exam: PRESENT: dry, intact, warm. ABSENT: cyanosis, rash Results Laboratory Results: 12/27/19 04:17 12/28/19 05:52 12/28/19 05:52 Sodium 136.8 L Potassium 4.3 Chloride 105 Carbon Dioxide 27 Anion Gap 5 BUN 22 H Creatinine 0.98 Est GFR ( Amer) > 60 Glucose 194 H Calcium 9.0 Total Bilirubin 0.6 AST 15 L Alkaline Phosphatase 60 Total Protein 6.2 L Albumin 3.1 L 12/24/19 12/24/19 12/24/19 15:00 15:00 18:15 Creatine Kinase 346 H CK-MB (CK-2) 1.89 Troponin I < 0.012 < 0.012 NT-Pro-B Natriuret Pep 107 12/25/19 12/25/19 12/25/19 02:43 02:43 07:17 Creatine Kinase 136 121 CK-MB (CK-2) 1.38 Troponin I < 0.012 NT-Pro-B Natriuret Pep 12/25/19 12/25/19 12/25/19 07:17 13:28 13:28 Creatine Kinase 86 CK-MB (CK-2) 1.09 0.71 Troponin I < 0.012 < 0.012 NT-Pro-B Natriuret Pep Impressions: Head CT 12/24/19 00:00 IMPRESSION: NORMAL BRAIN CT WITHOUT CONTRAST. EVIDENCE OF ACUTE STROKE: NO. Chest/Abdomen CTA 12/24/19 17:44 IMPRESSION: 1. There is no aortic aneurysm or dissection. There is no pulmonary embolus. 2. Small right pneumothorax. (less than 10%). 3. Ground-glass infiltrates in the lower lobes suggests mild pulmonary edema versus chronic interstitial changes. 4. Airspace disease in both lower lobes, right more than left, pneumonia versus atelectasis. Ankle X-Ray 12/24/19 18:02 IMPRESSION: NO FRACTURE. Femur X-Ray 12/24/19 18:02 IMPRESSION: NEGATIVE STUDY OF THE RIGHT FEMUR. NO RADIOGRAPHIC EVIDENCE OF AC FREDDY INJURY. Hip/Pelvis X-Ray 12/24/19 18:02 IMPRESSION: Negative right hip. Lower lumbar degenerative changes. Knee X-Ray 12/24/19 18:02 IMPRESSION: NEGATIVE STUDY OF THE RIGHT KNEE. NO RADIOGRAPHIC EVIDENCE OF ACUTE INJURY. Tibia/Fibula X-Ray 12/24/19 18:02 IMPRESSION: NO RADIOGRAPHIC EVIDENCE OF ACUTE INJURY. Head MRI 12/24/19 20:57 IMPRESSION: No acute intracranial hemorrhage, mass, or evidence of acute infarct. Mild chronic microvascular ischemic change with generalized atrophy. Bilateral mastoid air cell disease. Nonspecific soft tissue protuberance/signal abnormality located about the right posterior parietal scalp towards the vertex, new from the previous examination dated 07/22/2019. Correlate with physical examination as this could indicate a small soft tissue hematoma. copyright 2010 [employer]- All Rights Reserved Carotid Doppler Study 12/25/19 00:00 IMPRESSION: NO HEMODYNAMICALLY SIGNIFICANT STENOSIS. Chest X-Ray 12/25/19 00:00 IMPRESSION: Stable chest as above. Diminished basilar aeration. Assessment & Plan - Diagnosis (1) Acute kidney failure Qualifiers: Acute renal failure type: unspecified Qualified Code(s): N17.9 - Acute kidney failure, unspecified Is this a current diagnosis for this admission?: Yes Plan: Currently all resolving (2) Chest pain Qualifiers: Chest pain type: chest pain on breathing Qualified Code(s): R07.1 - Chest pain on breathing; R07.81 - Pleurodynia Is this a current diagnosis for this admission?: Yes Plan: No acute coronary syndrome seen by Dr. Jackson most likely chest wall contusion (3) Pneumonia of both lower lobes Qualifiers: Pneumonia type: due to unspecified organism Qualified Code(s): J18.9 - Pneumonia, unspecified organism Is this a current diagnosis for this admission?: Yes Plan: Repeat the chest x-ray continues the antibiotic (4) Pneumothorax, right Is this a current diagnosis for this admission?: Yes Plan: Repeat the chest x-ray is no sign of any pneumothorax (5) Syncope and collapse Is this a current diagnosis for this admission?: Yes Plan: Have echocardiogram done followed by Dr. GUZMÁN (6) COPD (chronic obstructive pulmonary disease) Qualifiers: COPD type: chronic bronchitis Is this a current diagnosis for this admission?: Yes Plan: Initial nebulizer treatments (7) Coronary artery disease Qualifiers: Coronary Disease-Associated Artery/Lesion type: [place] artery Associated angina: without angina Is this a current diagnosis for this admission?: Yes (8) Hypertension Qualifiers: Hypertension type: essential hypertension Is this a current diagnosis for this admission?: Yes Plan: Currently all stable (9) Nausea Is this a current diagnosis for this admission?: Yes (10) Sleep apnea syndrome Qualifiers: Sleep apnea type: unspecified type Is this a current diagnosis for this admission?: Yes (11) Type 2 diabetes mellitus Qualifiers: Diabetes mellitus complication status: with other specified complication Is this a current diagnosis for this admission?: Yes Plan: Sliding scale adjust the insulin - Time Time Spent with patient: 15-24 minutes Level of Care: IMCU Medications reviewed and adjusted accordingly: Yes Anticipated discharge: Home with Homehealth Within: Other - Inpatient Certification Based on my medical assessment, after consideration of the patient's comorbidities, presenting symptoms, or acuity I expect that the services needed warrant INPATIENT care.: Yes I certify that my determination is in accordance with my understanding of Medicare's requirements for reasonable and necessary INPATIENT services [42 CFR 412.3e].: Yes Medical Necessity: Significant Comorbidiites Make Outpatient Treatment Too Risky, Need Close Monitoring Due to Risk of Patient Decompensation, Need for IV Antibiotics 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
[2019-12-28] MEDS: FLUTICASONE/UMECLIDIN/VILANTER 100-62.5-25 MCG/DOSE IH SCH (11:14)
[2019-12-28] MEDS: PANTOPRAZOLE SODIUM 40 MG VIAL IV SCH ×2 (11:14→22:01)
[2019-12-28] MEDS: METOPROLOL TARTRATE 25 MG TABLET PO SCH ×2 (11:14→22:00)
[2019-12-28] MEDS: AMLODIPINE BESYLATE 10 MG TABLET PO SCH (11:14)
[2019-12-28] MEDS: CEFEPIME 1 GM/D5W RTU 1 GM/50 ML RTUPB IV SCH ×2 (11:15→22:00)
[2019-12-28] MEDS: ENOXAPARIN SODIUM INJ 40 MG/0.4 ML DISP.SYRIN SUBCUT SCH (11:15)
[2019-12-28] MEDS: MECLIZINE HCL 12.5 MG TABLET PO SCH (11:15)
[2019-12-28] MEDS: INSULIN GLARGINE,HUM.REC.ANLOG 1,000 UNIT/10 ML VIAL SUBCUT SCH ×2 (11:15→17:31)
--- NOTE | 2019-12-28 12:48 | RADIOLOGY REPORT (SQ) ---
EXAM DESCRIPTION: CHEST 2 VIEWS COMPLETED DATE/TIME: 12/28/2019 11:49 am REASON FOR STUDY: Pneumonia COMPARISON: 12/25/2019 EXAM PARAMETERS: NUMBER OF VIEWS: two views TECHNIQUE: Digital Frontal and Lateral radiographic views of the chest acquired. RADIATION DOSE: NA LIMITATIONS: none FINDINGS: LUNGS AND PLEURA: Mild opacification in the right base. Retrocardiac opacification is pre sent. The left hemidiaphragm remains well-defined. There is opacity seen posteriorly and inferiorly on the lateral view. MEDIASTINUM AND HILAR STRUCTURES: No masses or contour abnormalities. HEART AND VASCULAR STRUCTURES: Heart size is borderline. There is no pulmonary edema. BONES: No acute findings. HARDWARE: None in the chest. OTHER: No other significant finding. IMPRESSION: Borderline heart size. No pulmonary edema. Left lower lobe pneumonia. Cannot exclude limited right lower lobe pneumonia. TECHNICAL DOCUMENTATION: JOB ID: [id number] 2010 [employer]- All Rights Reserved Reading location - IP/workstation name: [email or web address]
--- NOTE | 2019-12-28 16:10 | XCELERA REPORT ---
[address] [address] Transthoracic Echocardiogram Report Name: TAHIR FOURNIER Age: 64 yrs Gender: Male : 1955 Patient Status: Inpatient Patient Location: [address] [place] [address] Study Date: 12/28/2019 09:59 AM Height: 69 in Weight: 190 lb BSA: 2.0 m2 Procedure: A two-dimensional transthoracic echocardiogram with color flow and Doppler was performed. The study was technically difficult with many images being suboptimal in quality. Reason For Study: SYNCOPE /CAD History: SYNCOPE /CAD. Ordering Physician: SUSHMA BAEZ Performed By: Eduar Lopes Interpretation Summary The left ventricle is normal in size. There is normal left ventricular wall thickness. LV EF is > than 65%.% Left ventricular systolic function is normal. Doppler measurements suggest normal left ventricular diastolic function The left ventricular wall motion is normal. There is no thrombus. No ASD,VSD,or PFO seen. The right ventricle is not well visualized secondary to technical limitations The right atrium is normal. The left atrial size is normal. There is no evidence of mitral valve prolapse. There is no vegetation seen on the mitral valve. There is no mitral valve stenosis. There is a trace amount of mitral regurgitation There is moderate aortic stenosis There is a peak gradient of of 44 mm of Hg , and Mean gradient of 21 mm of Hg. ZEESHAN =1.38 cm2. No significant tricuspid stenosis. There is a trace amount of tricuspid regurgitation There is mild pulmonary hypertension by echo RVSP is 35 mm of Hg , with RA mean of 10. There is no pulmonic valvular stenosis. There is a trace amount of pulmonic regurgitation The aortic root is normal size. The inferior vena cava appeared normal and decreased > 50% with respiration (RAP 5-10 mmHg) There is no pericardial effusion. MMode/2D Measurements & Calculations RVDd: 3.0 cm LVIDd: 5.4 cm FS: 39.2 % Ao root diam: 3.2 cm IVSd: 1.1 cm LVIDs: 3.3 cm EDV(Teich): 139.7 ml Ao root area: 8.1 cm2 LVPWd: 1.1 cm ESV(Teich): 43.1 ml LA dimension: 3.7 cm EF(Teich): 69.1 % LVOT diam: 2.1 cm LVOT area: 3.4 cm2 Doppler Measurements & Calculations MV E max geovanni: MV P1/2t max geovanni: Ao V2 max: LV V1 max P.8 cm/sec 114.2 cm/sec 330.1 cm/sec 6.7 mmHg MV A max geovanni: MV P1/2t: 68.3 msec Ao max PG: LV V1 mean P.9 cm/sec MVA(P1/2t): 3.2 cm2 43.6 mmHg 3.3 mmHg MV E/A: 1.2 MV dec slope: Ao V2 mean: LV V1 max: 210.6 cm/sec 129.7 cm/sec 489.7 cm/sec2 Ao mean PG: LV V1 mean: MV dec time: 0.23 sec 20.7 mmHg 83.2 cm/sec Ao V2 VTI: 62.3 cm LV V1 VTI: 24.9 cm ZEESHAN(I,D): 1.3 cm2 ZEESHAN(V,D): 1.3 cm2 SV(LVOT): 84.0 ml PA V2 max: PI end-d geovanni: TR max geovanni: 133.8 cm/sec 140.1 cm/sec 248.9 cm/sec PA max P.2 mmHg TR max P.8 mmHg MV P1/2t-pr_phl: 68.3 msec Left Ventricle The left ventricle is normal in size. There is normal left ventricular wall thickness. LV EF is > than 65%.%. Left ventricular systolic function is normal. Doppler measurements suggest normal left ventricular diastolic function. The left ventricular wall motion is normal. There is no thrombus. No ASD,VSD,or PFO seen. Right Ventricle The right ventricle is not well visualized secondary to technical limitations. Atria The right atrium is normal. The left atrial size is normal. Mitral Valve There is no evidence of mitral valve prolapse. There is no vegetation seen on the mitral valve. There is no mitral valve stenosis. There is a trace amount of mitral regurgitation. Aortic Valve There is no aortic valvular vegetation. There is moderate aortic stenosis. There is a peak gradient of of 44 mm of Hg , and Mean gradient of 21 mm of Hg. ZEESHAN =1.38 cm2. Tricuspid Valve No significant tricuspid stenosis. There is a trace amount of tricuspid regurgitation. There is mild pulmonary hypertension by echo. RVSP is 35 mm of Hg , with RA mean of 10. Pulmonic Valve There is no pulmonic valvular stenosis. There is a trace amount of pulmonic regurgitation. Great Vessels The aortic root is normal size. The inferior vena cava appeared normal and decreased > 50% with respiration (RAP 5-10 mmHg). Effusions There is no pericardial effusion. : SUSHMA BAEZ Lakshmi
--- NOTE | 2019-12-28 16:14 | Progress Note ---
Provider Note Provider Note: Cardiology progress note by Dr. Tristan Washington on 12/28/2019 SUBJECTIVE: The patient denies any shortness of breath peers. His right-sided chest wall pain is much improved. There is no arrhythmia seen on the monitor. The patient denies any PND he does seem to have some degree of orthopnea. There is no leg edema. There is no TIA CVA symptoms. PHYSICAL EXAMINATION: The patient is well-built at present in no acute distress. Selected Entries 12/28/19 16:12 Temperature 97.7 F Temperature Axillary Source Pulse Rate 64 Respiratory 12 Rate Blood Pressure 168/65 H Blood Pressure 99 Mean BP Location Left Arm BP Position Supine O2 Sat by Pulse 97 Oximetry Oxygen Flow 4.50 Rate Oxygen Delivery Nasal Cannula Method HEAD: Is atraumatic normocephalic. EYES: Pupils are equal round regular reactive to light accommodation. Extraocular movements are normal. There is no conjunctival pallor. There is no scleral icterus. Ears: Tympanic membranes are intact. External auditory canals are clear. NOSE: There is no deviated nasal septum. There is no inflammation nasal mucous membrane. MOUTH: Mucous membranes of the mouth are moist the tongue is moist. There is no ulcers. THROAT: There is no redness of the oropharynx. There is no exudates. SKIN: There is no skin rashes or skin lesions. There is no petechiae. There is some mild ecchymosis in the right chest wall. NECK: Supple. There is no JVD. Carotids are equal there is no bruit. There is no lymphadenopathy. There is no goiter. There is no accessory muscle respiration use. TRACHEA: Is central. LUNGS: There is diminished air entry prolonged expiration. There is a few occa sional rhonchi. There is no rales of CHF. There is no crackles of pneumonia. On percussion there is hyperresonance. There is significant chest wall tenderness in the right side of the chest. This is reproducible by pressing on the chest wall. There is no pleural rub. HEART: S1-S2 is heard. There is no S3 gallop. There is no S4 gallop. There is systolic murmur of left ear in the aortic area, and systolic murmur in the left sternal border and the apex there is no rub. ABDOMEN: Soft. There is nontender. There is no paraspinal megaly. Bowel sounds are well heard. EXTREMITIES: Femorals are diminished. There is no femoral bruits. Leg pulses are diminished. There is no pedal edema. There is no DVT or cellulitis. There is no calf tenderness. UNIVERSITY INTERN: The patient is conscious awake alert oriented x3 with no focal deficits. PSYCHIATRIC: The patient judgment insight are intact her affect is normal. Patient's echocardiogram: Shows normal ventricular wall motion and ejection frac tion. There is moderate aortic stenosis with aortic valve area of 1.38. Peak aortic valve gradient is 44 mmHg. [Please see report]. This is been discussed with the patient. Labs- All tests 24 hr 12/27/19 12/28/19 12/28/19 21:43 05:52 08:25 Sodium 136.8 L Potassium 4.3 Chloride 105 Carbon Dioxide 27 Anion Gap 5 BUN 22 H Creatinine 0.98 Est GFR ( Amer) > 60 Est GFR (MDRD) Non-Af > 60 Glucose 194 H POC Glucose 222 H 219 H Calcium 9.0 Total Bilirubin 0.6 Direct Bilirubin 0.1 Neonat Total Bilirubin Not Reportable Neonat Direct Bilirubin Not Reportable Neonat Indirect Bili Not Reportable AST 15 L ALT 14 Alkaline Phosphatase 60 Total Protein 6.2 L Albumin 3.1 L 12/28/19 12/28/19 11:02 16:29 Sodium Potassium Chloride Carbon Dioxide Anion Gap BUN Creatinine Est GFR ( Amer) Est GFR (MDRD) Non-Af Glucose POC Glucose 224 H 232 H Calcium Total Bilirubin Direct Bilirubin Neonat Total Bilirubin Neonat Direct Bilirubin Neonat Indirect Bili AST ALT Alkaline Phosphatase Total Protein Albumin Chest X-Ray 12/24/19 00:00 IMPRESSION: FAINT DENSITIES IN THE LUNG BASES WHICH MAY BE DUE TO ATELECTASIS VERSUS DEVELOPING PNEUMONIA. Head CT 12/24/19 00:00 IMPRESSION: NORMAL BRAIN CT WITHOUT CONTRAST. EVIDENCE OF ACUTE STROKE: NO. Chest/Abdomen CTA 12/24/19 17:44 IMPRESSION: 1. There is no aortic aneurysm or dissection. There is no pulmonary embolus. 2. Small right pneumothorax. (less than 10%). 3. Ground-glass infiltrates in the lower lobes suggests mild pulmonary edema versus chronic interstitial changes. 4. Airspace disease in both lower lobes, right more than left, pneumonia versus atelectasis. Ankle X-Ray 12/24/19 18:02 IMPRESSION: NO FRACTURE. Femur X-Ray 12/24/19 18:02 IMPRESSION: NEGATIVE STUDY OF THE RIGHT FEMUR. NO RADIOGRAPHIC EVIDENCE OF ACUTE INJURY. Hip/Pelvis X-Ray 12/24/19 18:02 IMPRESSION: Negative right hip. Lower lumbar degenerative changes. Knee X-Ray 12/24/19 18:02 IMPRESSION: NEGATIVE STUDY OF THE RIGHT KNEE. NO RADIOGRAPHIC EVIDENCE OF ACUTE INJURY. Tibia/Fibula X-Ray 12/24/19 18:02 IMPRESSION: NO RADIOGRAPHIC EVIDENCE OF ACUTE INJURY. Head MRI 12/24/19 20:57 IMPRESSION: No acute intracranial hemorrhage, mass, or evidence of acute infarct. Mild chronic microvascular ischemic change with generalized atrophy. Bilateral mastoid air cell disease. Nonspecific soft tissue protuberance/signal abnormality located about the right posterior parietal scalp towards the vertex, new from the previous examination dated 07/22/2019. Correlate with physical examination as this could indicate a small soft tissue hematoma. copyright 2010 [employer]- All Rights Reserved Carotid Doppler Study 12/25/19 00:00 IMPRESSION: NO HEMODYNAMICALLY SIGNIFICANT STENOSIS. Chest X-Ray 12/25/19 00:00 IMPRESSION: Stable chest as above. Diminished basilar aeration. Chest X-Ray 12/28/19 00:00 IMPRESSION: Borderline heart size. No pulmonary edema. Left lower lobe pneumonia. Cannot exclude limited right lower lobe pneumoni IMPRESSION/RECOMMENDATION: 1. Syncope: Etiology still not clear. Note that the patient states he had a coughing spell and felt weak and sat down. Subsequently the patient stood up and that is when he became syncopal. He states he is not sure how long he was syncopal. He states when he woke up he was confused. Hence this seems to be either secondary to orthostatic hypotension or orthopnea or TIA. The patient has no prior history of CVA. But the patient also claims that he has is LV function is only 50% of normal. Hence the patient would like would be recommended to have a 30-day event monitor. We will check her echo in the morning. Note that the patient has no anginal symptoms and had no anginal chest pains or palpitations or shortness of breath prior to or after the syncopal episode. His cardiac enzymes are negative and his EKG is normal. 2. Bibasilar pneumonia 3. Acute acute renal failure on? Chronic renal failure. GFR slightly improved. Will recheck SMA-7 tomorrow. 4. COPD: Seems to be at baseline. Patient on oxygen. Continue anti-COPD treatment. 5. Diabetes mellitus: Continue diabetic medication and Accu-Cheks as per protocol. 6. Hypertension: Blood pressure slightly elevated this is probably due to pain due to his chest wall contusion. Will increase patient's antihypertensive. 7. Right-sided chest pain secondary to fall and chest wall contusion. Also the patient is a small sided pneumothorax. This pain could be contributing to the patient's high blood pressure. Would recommend significant analgesics to for pain control since this cannot only cause his blood pressure to go up, but also can cause him to breathe shallowly leading to respiratory complications. 8. Moderate aortic stenosis: At present requires no treatment. Medications reviewed. Medications adjusted. Medical regimen and management plan discussed with attending physician. At present cardiac darby medical regimen decision making is of moderate to high complexity. 40 minutes spent on this patient with more than 50% of time spent in direct patient care. As requested by the patient's I try to contact her by telephone to discuss the echo findings. She did not pickling operator the phone. We will try to reach her tomorrow.
[2019-12-28] MEDS: MONTELUKAST SODIUM 10 MG TABLET PO SCH (17:31)
[2019-12-28] MEDS: TAMSULOSIN HCL 0.4 MG CAP.SR.24H PO SCH (17:31)
[2019-12-28] MEDS: LIDOCAINE 5% (700 MG) TRANSDERMAL ADH..PATCH TP SCH (17:32)
[2019-12-28] MEDS: ATORVASTATIN CALCIUM 40 MG TABLET PO SCH (22:00)
[2019-12-28] MEDS: HYDRALAZINE HCL 25 MG TABLET PO SCH (22:00)
[2019-12-29] MEDS: BENZONATATE 100 MG CAPSULE PO SCH ×3 (05:08→22:35)
[2019-12-29] MEDS: HYDRALAZINE HCL 25 MG TABLET PO SCH ×3 (05:08→22:35)
[2019-12-29 05:35] LABS: ABSOLUTE EOSINOPHILS # (AUTO) 0.2 10^3/uL (0.0-0.6); ABSOLUTE LYMPHOCYTES (AUTO) 1.6 10^3/uL (0.5-4.7); ABSOLUTE MONOCYTES (AUTO) 0.6 10^3/uL (0.1-1.4); BASOPHILS % (AUTO) 0.7 % (0-2); EOSINOPHILS % (AUTO) 3.6 % (0-6); HEMATOCRIT 37.7 % (37.9-51.0); HEMOGLOBIN 12.5 g/dL (13.5-17.0); LYMPHOCYTES % (AUTO) 24.8 % (13-45); MEAN CORPUSCULAR HEMOGLOBIN 25.9 pg (27.0-33.4); MEAN CORPUSCULAR HGB CONC 33.3 g/dL (32.0-36.0); MEAN CORPUSCULAR VOLUME 78 fl (80-97); MONOCYTES % (AUTO) 9.1 % (3-13); PLATELET COUNT 297 10^3/uL (150-450); RED BLOOD COUNT 4.84 10^6/uL (4.35-5.55); SEGMENTED NEUTROPHILS % (AUTO) 61.8 % (42-78); TOTAL CELLS COUNTED % (AUTO) 100 %; WHITE BLOOD COUNT 6.4 10^3/uL (4.0-10.5)
[2019-12-29 05:54] LABS: ANION GAP 10 (5-19); BLOOD UREA NITROGEN 23 mg/dL (7-20); CALCIUM 9.4 mg/dL (8.4-10.2); CARBON DIOXIDE 25 mmol/L (22-30); CHLORIDE 101 mmol/L (98-107); GLUCOSE 173 mg/dL (75-110); POTASSIUM 4.3 mmol/L (3.6-5.0)
[2019-12-29] MEDS: GUAIFENESIN SYRP 200 MG/10 ML UDC PO PRN ×3 (08:31→20:01)
[2019-12-29] MEDS: INSULIN LISPRO 100 UNIT/ML 3 ML VIAL SUBCUT SCH ×4 (08:34→22:35)
[2019-12-29] MEDS: IPRATROPIUM/ALBUTEROL 0.5-2.5 MG/3 ML AMPUL NEB SCH ×4 (08:45→19:49)
[2019-12-29] MEDS: BUDESONIDE NEB 0.5 MG/2 ML AMPUL NEB SCH ×2 (08:47→19:49)
[2019-12-29] MEDS: METOPROLOL TARTRATE 25 MG TABLET PO SCH ×2 (09:36→22:35)
[2019-12-29] MEDS: AMLODIPINE BESYLATE 10 MG TABLET PO SCH (09:36)
[2019-12-29] MEDS: CEFEPIME 1 GM/D5W RTU 1 GM/50 ML RTUPB IV SCH ×2 (09:37→22:34)
[2019-12-29] MEDS: PANTOPRAZOLE SODIUM 40 MG VIAL IV SCH ×2 (09:38→22:36)
[2019-12-29] MEDS: MECLIZINE HCL 12.5 MG TABLET PO SCH (09:38)
[2019-12-29] MEDS: INSULIN GLARGINE,HUM.REC.ANLOG 1,000 UNIT/10 ML VIAL SUBCUT SCH ×2 (09:39→17:30)
[2019-12-29] MEDS: ENOXAPARIN SODIUM INJ 40 MG/0.4 ML DISP.SYRIN SUBCUT SCH (09:39)
[2019-12-29] MEDS: FLUTICASONE/UMECLIDIN/VILANTER 100-62.5-25 MCG/DOSE IH SCH (09:40)
--- NOTE | 2019-12-29 09:55 | PDOC PROGRESS REPORT ---
Subjective Progress Note for:: 12/29/19 Subjective:: Patient is currently doing well patient's denied any chest pain no short of breath patient still feels weak Reason For Visit: SOB, PNEUMONIA Physical Exam Vital Signs: Temp Pulse Resp BP Pulse Ox 97.9 F 66 17 164/70 H 92 12/29/19 07:15 12/29/19 07:15 12/29/19 07:15 12/29/19 07:15 12/29/19 07:15 Intake & Output 12/28/19 12/29/19 12/30/19 06:59 06:59 06:59 Intake Total 3380 1048 Output Total 1855 2345 Balance 1525 -1297 Weight 87.3 kg General appearance: PRESENT: no acute distress, well-developed, well-nourished Head exam: PRESENT: atraumatic, normocephalic Eye exam: PRESENT: conjunctiva pink, EOMI, PERRLA. ABSENT: scleral icterus Ear exam: PRESENT: normal external ear exam Mouth exam: PRESENT: moist, tongue midline Neck exam: PRESENT: full ROM. ABSENT: carotid bruit, JVD, lymphadenopathy, thyromegaly Respiratory exam: PRESENT: clear to auscultation raya Cardiovascular exam: PRESENT: RRR. ABSENT: diastolic murmur, rubs, systolic murmur Pulses: PRESENT: normal dorsalis pedis pul, +2 pedal pulses bilateral Vascular exam: PRESENT: normal capillary refill GI/Abdominal exam: PRESENT: normal bowel sounds, soft. ABSENT: distended, guarding, mass, organolmegaly, rebound, tenderness Rectal exam: PRESENT: deferred Extremities exam: ABSENT: pedal edema Musculoskeletal exam: PRESENT: ambulatory Neurological exam: PRESENT: alert, awake, oriented to person, oriented to place, oriented to time, oriented to situation, CN II-XII grossly intact. ABSENT: motor sensory deficit Psychiatric exam: PRESENT: appropriate affect, normal mood. ABSENT: homicidal ideation, suicidal ideation Skin exam: PRESENT: dry, intact, warm. ABSENT: cyanosis, rash Results Laboratory Results: 12/29/19 04:35 12/29/19 04:35 12/29/19 12/29/19 04:35 04:35 WBC 6.4 RBC 4.84 Hgb 12.5 L Hct 37.7 L MCV 78 L MCH 25.9 L MCHC 33.3 RDW 14.0 Plt Count 297 Seg Neutrophils % 61.8 Sodium 136.3 L Potassium 4.3 Chloride 101 Carbon Dioxide 25 Anion Gap 10 BUN 23 H Creatinine 0.88 Est GFR ( Amer) > 60 Glucose 173 H Calcium 9.4 12/24/19 12/24/19 12/24/19 15:00 15:00 18:15 Creatine Kinase 346 H CK-MB (CK-2) 1.89 Troponin I < 0.012 < 0.012 NT-Pro-B Natriuret Pep 107 12/25/19 12/25/19 12/25/19 02:43 02:43 07:17 Creatine Kinase 136 121 CK-MB (CK-2) 1.38 Troponin I < 0.012 NT-Pro-B Natriuret Pep 12/25/19 12/25/19 12/25/19 07:17 13:28 13:28 Creatine Kinase 86 CK-MB (CK-2) 1.09 0.71 Troponin I < 0.012 < 0.012 NT-Pro-B Natriuret Pep Impressions: Head CT 12/24/19 00:00 IMPRESSION: NORMAL BRAIN CT WITHOUT CONTRAST. EVIDENCE OF ACUTE STROKE: NO. Chest/Abdomen CTA 12/24/19 17:44 IMPRESSION: 1. There is no aortic aneurysm or dissection. There is no pulmonary embolus. 2. Small right pneumothorax. (less than 10%). 3. Ground-glass infiltrates in the lower lobes suggests mild pulmonary edema versus chronic interstitial changes. 4. Airspace disease in both lower lobes, right more than left, pneumonia versus atelectasis. Ankle X-Ray 12/24/19 18:02 IMPRESSION: NO FRACTURE. Femur X-Ray 12/24/19 18:02 IMPRESSION: NEGATIVE STUDY OF THE RIGHT FEMUR. NO RADIOGRAPHIC EVIDENCE OF ACUTE INJURY. Hip/Pelvis X-Ray 12/24/19 18:02 IMPRESSION: Negative right hip. Lower lumbar degenerative changes. Knee X-Ray 12/24/19 18:02 IMPRESSION: NEGATIVE STUDY OF THE RIGHT KNEE. NO RADIOGRAPHIC EVIDENCE OF ACUTE INJURY. Tibia/Fibula X-Ray 12/24/19 18:02 IMPRESSION: NO RADIOGRAPHIC EVIDENCE OF ACUTE INJURY. Head MRI 12/24/19 20:57 IMPRESSION: No acute intracranial hemorrhage, mass, or evidence of acute infarct. Mild chronic microvascular ischemic change with generalized atrophy. Bilateral mastoid air cell disease. Nonspecific soft tissue protuberance/signal abnormality located about the right posterior parietal scalp towards the vertex, new from the previous examination dated 07/22/2019. Correlate with physical examination as this could indicate a small soft tissue hematoma. copyright 2010 [employer]- All Rights Reserved Carotid Doppler Study 12/25/19 00:00 IMPRESSION: NO HEMODYNAMICALLY SIGNIFICANT STENOSIS. Chest X-Ray 12/28/19 00:00 IMPRESSION: Borderline heart size. No pulmonary edema. Left lower lobe pneumonia. Cannot exclude limited right lower lobe pneumonia. Assessment & Plan - Diagnosis (1) Acute kidney failure Qualifiers: Acute renal failure type: unspecified Qualified Code(s): N17.9 - Acute kidney failure, unspecified Is this a current diagnosis for this admission?: Yes Plan: Currently all resolved (2) Chest pain Qualifiers: Chest pain type: chest pain on breathing Qualified Code(s): R07.1 - Chest pain on breathing; R07.81 - Pleurodynia Is this a current diagnosis for this admission?: Yes Plan: No acute coronary syndrome seen by Dr. Jackson most likely chest wall contusion (3) Pneumonia of both lower lobes Qualifiers: Pneumonia type: due to unspecified organism Qualified Code(s): J18.9 - Pneumonia, unspecified organism Is this a current diagnosis for this admission?: Yes Plan: Continues the antibiotic will switch to the p.o. antibiotic today (4) Pneumothorax, right Is this a current diagnosis for this admission?: Yes Plan: Currently all resolved (5) Syncope and collapse Is this a current diagnosis for this admission?: Yes Plan: Have echocardiogram done followed by Dr. GUZMÁN (6) COPD (chronic obstructive pulmonary disease) Qualifiers: COPD type: chronic bronchitis Is this a current diagnosis for this admission?: Yes Plan: Initial nebulizer treatments (7) Coronary artery disease Qualifiers: Coronary Disease-Associated Artery/Lesion type: [place] artery Associated angina: without angina Is this a current diagnosis for this admission?: Yes (8) Hypertension Qualifiers: Hypertension type: essential hypertension Is this a current diagnosis for this admission?: Yes Plan: Adjust the hydralazine dose on her discharge (9) Nausea Is this a current diagnosis for this admission?: Yes (10) Sleep apnea syndrome Qualifiers: Sleep apnea type: unspecified type Is this a current diagnosis for this admission?: Yes (11) Type 2 diabetes mellitus Qualifiers: Diabetes mellitus complication status: with other specified complication Is this a current diagnosis for this admission?: Yes - Time Time Spent with patient: 15-24 minutes Level of Care: IMCU Medications reviewed and adjusted accordingly: Yes Anticipated discharge: Acute Rehab, Other Within: Other - Plan Summary Plan Summary: I think overall patient's week I think patient should get benefit to the acute rehab for at least couple of weeks discussed with the patient's and he willing to go we will consult the land planner the plan to discharge within the next 24 to 48 hours
[2019-12-29] MEDS: TRAMADOL HCL 50 MG TABLET PO PRN (10:28)
[2019-12-29] MEDS: TAMSULOSIN HCL 0.4 MG CAP.SR.24H PO SCH (17:29)
[2019-12-29] MEDS: MONTELUKAST SODIUM 10 MG TABLET PO SCH (17:29)
[2019-12-29] MEDS: LIDOCAINE 5% (700 MG) TRANSDERMAL ADH..PATCH TP SCH (17:30)
--- NOTE | 2019-12-29 19:11 | Progress Note ---
Provider Note Provider Note: CARDIOLOGY PROGRESS NOTE by Dr. Sushma Washington on 12/29/2019. SUBJECTIVE: The patient denies any chest pain or discomfort. There is no shortness of breath. There is no PND orthopnea. There is no leg edema. There is no arrhythmia seen on the monitor. There is no TIA CVA symptoms. There is no recurrence of syncope. The patient denies any palpitations near syncope or syncope. Still awaiting records from [facility] office in [place]. PHYSICAL EXAMINATION: The patient is well-built in no acute distress. Selected Entries 12/29/19 15:01 Temperature 97.9 F Temperature Oral Source Pulse Rate 64 Respiratory 16 Rate Blood Pressure 148/72 H Blood Pressure 97 Mean BP Location Right Arm BP Position Supine O2 Sat by Pulse 93 Oximetry Oxygen Flow 2.00 Rate Oxygen Delivery Nasal Cannula Method HEAD: Is atraumatic normocephalic. EYES: Pupils are equal round regular reactive to light accommodation. Extraocular movements are normal. There is no conjunctival pallor. There is no scleral icterus. Ears: Tympanic membranes are intact. External auditory canals are clear. NOSE: There is no deviated nasal septum. There is no inflammation nasal mucous membrane. MOUTH: Mucous membranes of the mouth are moist the tongue is moist. There is no ulcers. THROAT: There is no redness of the oropharynx. There is no exudates. SKIN: There is no skin rashes or skin lesions. There is no petechiae. There is some mild ecchymosis in the right chest wall. NECK: Supple. There is no JVD. Carotids are equal there is no bruit. There is no lymphadenopathy. There is no goiter. There is no accessory muscle respiration use. TRACHEA: Is central. LUNGS: There is diminished air entry prolonged expiration. There is a few occasional rhonchi. There is no rales of CHF. There is no crackles of pneumonia. On percussion there is hyperresonance. There is significant chest wall tenderness in the right side of the chest. This is reproducible by pressing on the chest wall. There is no pleural rub. HEART: S1-S2 is heard. There is no S3 gallop. There is no S4 gallop. There is systolic murmur of left ear in the aortic area, and systolic murmur in the left sternal border and the apex there is no rub. ABDOMEN: Soft. There is nontender. There is no paraspinal megaly. Bowel sounds are well heard. EXTREMITIES: Femorals are diminished. There is no femoral bruits. Leg pulses are diminished. There is no pedal edema. There is no DVT or cellulitis. There is no calf tenderness. MANAGER NC: The patient is conscious awake alert oriented x3 with no focal deficits. PSYCHIATRIC: The patient judgment insight are intact her affect is normal. Labs- All tests 24 hr 12/28/19 12/29/19 12/29/19 22:37 04:35 04:35 WBC 6.4 RBC 4.84 Hgb 12.5 L Hct 37.7 L MCV 78 L MCH 25.9 L MCHC 33.3 RDW 14.0 Plt Count 297 Lymph % (Auto) 24.8 [place] % (Auto) 9.1 Eos % (Auto) 3.6 Baso % (Auto) 0.7 Absolute Neuts (auto) 4.0 Absolute Lymphs (auto) 1.6 Absolute Monos (auto) 0.6 Absolute Eos (auto) 0.2 Absolute Basos (auto) 0.0 Seg Neutrophils % 61.8 Sodium 136.3 L Potassium 4.3 Chloride 101 Carbon Dioxide 25 Anion Gap 10 BUN 23 H Creatinine 0.88 Est GFR ( Amer) > 60 Est GFR (MDRD) Non-Af > 60 Glucose 173 H POC Glucose 256 H Calcium 9.4 12/29/19 12/29/19 12/29/19 08:31 11:15 15:03 WBC RBC Hgb Hct MCV MCH MCHC RDW Plt Count Lymph % (Auto) [place] % (Auto) Eos % (Auto) Baso % (Auto) Absolute Neuts (auto) Absolute Lymphs (auto) Absolute Monos (auto) Absolute Eos (auto) Absolute Basos (auto) Seg Neutrophils % Sodium Potassium Chloride Carbon Dioxide Anion Gap BUN Creatinine Est GFR ( Amer) Est GFR (MDRD) Non-Af Glucose POC Glucose 212 H 344 H 283 H Calcium Chest X-Ray 12/24/19 00:00 IMPRESSION: FAINT DENSITIES IN THE LUNG BASES WHICH MAY BE DUE TO ATELECTASIS VERSUS DEVELOPING PNEUMONIA. Head CT 12/24/19 00:00 IMPRESSION: NORMAL BRAIN CT WITHOUT CONTRAST. EVIDENCE OF ACUTE STROKE: NO. Chest/Abdomen CTA 12/24/19 17:44 IMPRESSION: 1. There is no aortic aneurysm or dissection. There is no pulmonary embolus. 2. Small right pneumothorax. (less than 10%). 3. Ground-glass infiltrates in the lower lobes suggests mild pulmonary edema versus chronic interstitial changes. 4. Airspace disease in both lower lobes, right more than left, pneumonia versus atelectasis. Ankle X-Ray 12/24/19 18:02 IMPRESSION: NO FRACTURE. Femur X-Ray 12/24/19 18:02 IMPRESSION: NEGATIVE STUDY OF THE RIGHT FEMUR. NO RADIOGRAPHIC EVIDENCE OF ACUTE INJURY. Hip/Pelvis X-Ray 12/24/19 18:02 IMPRESSION: Negative right hip. Lower lumbar degenerative changes. Knee X-Ray 12/24/19 18:02 IMPRESSION: NEGATIVE STUDY OF THE RIGHT KNEE. NO RADIOGRAPHIC EVIDENCE OF ACUTE INJURY. Tibia/Fibula X-Ray 12/24/19 18:02 IMPRESSION: NO RADIOGRAPHIC EVIDENCE OF ACUTE INJURY. Head MRI 12/24/19 20:57 IMPRESSION: No acute intracranial hemorrhage, mass, or evidence of acute infarct. Mild chronic microvascular ischemic change with generalized atrophy. Bilateral mastoid air cell disease. Nonspecific soft tissue protuberance/signal abnormality located about the right posterior parietal scalp towards the vertex, new from the previous examination dated 07/22/2019. Correlate with physical examination as this could indicate a small soft tissue hematoma. copyright 2010 [employer]- All Rights Reserved Carotid Doppler Study 12/25/19 00:00 IMPRESSION: NO HEMODYNAMICALLY SIGNIFICANT STENOSIS. Chest X-Ray 12/25/19 00:00 IMPRESSION: Stable chest as above. Diminished basilar aeration. Chest X-Ray 12/28/19 00:00 IMPRESSION: Borderline heart size. No pulmonary edema. Left lower lobe pneumonia. Cannot exclude limited right lower lobe pneumonia. IMPRESSION/RECOMMENDATION: 1. Syncope: Etiology still not clear. Note that the patient states he had a coughing spell and felt weak and sat down. Subsequently the patient stood up and that is when he became syncopal. He states he is not sure how long he was syncopal. He states when he woke up he was confused. Hence this seems to be either secondary to orthostatic hypotension or orthopnea or TIA. The patient has no prior history of CVA. But the patient also claims that he has is LV function is only 50% of normal. Hence the patient would like would be recommended to have a 30-day event monitor. We will check her echo in the morning. Note that the patient has no anginal symptoms and had no anginal chest pains or palpitations or shortness of breath prior to or after the syncopal episode. His cardiac enzymes are negative and his EKG is normal. 2. Bibasilar pneumonia 3. Acute acute renal failure on? Chronic renal failure. GFR slightly improved. Will recheck SMA-7 tomorrow. 4. COPD: Seems to be at baseline. Patient on oxygen. Continue anti-COPD treatment. 5. Diabetes mellitus: Continue diabetic medication and Accu-Cheks as per protocol. 6. Hypertension: Blood pressure slightly elevated this is probably due to pain due to his chest wall contusion. Will increase patient's antihypertensive. 7. Right-sided chest pain secondary to fall and chest wall contusion. Also the patient is a small sided pneumothorax. This pain could be contributing to the patient's high blood pressure. Would recommend significant analgesics to for pain control since this cannot only cause his blood pressure to go up, but also can cause him to breathe shallowly leading to respiratory complications. 8. Moderate aortic stenosis: At present requires no treatment. Medications reviewed. Medications adjusted. Medical regimen and management pl an discussed with attending physician. At present cardiac darby medical regimen decision making is of moderate to high complexity. 40 minutes spent on this patient with more than 50% of time spent in direct patient care.
[2019-12-29] MEDS: ATORVASTATIN CALCIUM 40 MG TABLET PO SCH (22:35)
[2019-12-30] MEDS: GUAIFENESIN SYRP 200 MG/10 ML UDC PO PRN ×2 (02:37→09:53)
[2019-12-30 05:12] LABS: ANION GAP 12 (5-19); BLOOD UREA NITROGEN 27 mg/dL (7-20); CALCIUM 9.5 mg/dL (8.4-10.2); CARBON DIOXIDE 24 mmol/L (22-30); CHLORIDE 100 mmol/L (98-107); GLUCOSE 217 mg/dL (75-110); POTASSIUM 4.4 mmol/L (3.6-5.0)
[2019-12-30] MEDS: HYDRALAZINE HCL 25 MG TABLET PO SCH ×3 (05:45→21:22)
[2019-12-30] MEDS: BENZONATATE 100 MG CAPSULE PO SCH ×3 (05:45→21:23)
[2019-12-30] MEDS: INSULIN LISPRO 100 UNIT/ML 3 ML VIAL SUBCUT SCH ×4 (07:44→21:37)
[2019-12-30] MEDS ORDERED: BISACODYL 5 MG TABEC PO PRN (08:57)
[2019-12-30] MEDS: BUDESONIDE NEB 0.5 MG/2 ML AMPUL NEB SCH ×2 (09:04→20:22)
[2019-12-30] MEDS: IPRATROPIUM/ALBUTEROL 0.5-2.5 MG/3 ML AMPUL NEB SCH ×4 (09:04→20:22)
--- NOTE | 2019-12-30 09:44 | PDOC PROGRESS REPORT ---
Subjective Progress Note for:: 12/30/19 Subjective:: Patient is feeling same Still have some cough No bowel movement since for 5 days No chest pain no short of breath Reason For Visit: SOB, PNEUMONIA Physical Exam Vital Signs: Temp Pulse Resp BP Pulse Ox 98.3 F 69 20 166/70 H 89 L 12/30/19 07:19 12/30/19 09:07 12/30/19 09:07 12/30/19 07:19 12/30/19 09:07 Intake & Output 12/29/19 12/30/19 12/31/19 06:59 06:59 06:59 Intake Total 1048 940 Output Total 2345 1495 Balance -1297 -555 Weight 87 kg General appearance: PRESENT: no acute distress, well-developed, well-nourished Head exam: PRESENT: atraumatic, normocephalic Eye exam: PRESENT: conjunctiva pink, EOMI, PERRLA. ABSENT: scleral icterus Ear exam: PRESENT: normal external ear exam Mouth exam: PRESENT: moist, tongue midline Neck exam: PRESENT: full ROM. ABSENT: carotid bruit, JVD, lymphadenopathy, thyromegaly Respiratory exam: PRESENT: clear to auscultation raya Cardiovascular exam: PRESENT: RRR. ABSENT: diastolic murmur, rubs, systolic murmur Pulses: PRESENT: normal dorsalis pedis pul, +2 pedal pulses bilateral Vascular exam: PRESENT: normal capillary refill GI/Abdominal exam: PRESENT: normal bowel sounds, soft. ABSENT: distended, guar ding, mass, organolmegaly, rebound, tenderness Rectal exam: PRESENT: deferred Musculoskeletal exam: PRESENT: ambulatory Neurological exam: PRESENT: alert, awake, oriented to person, oriented to place, oriented to time, oriented to situation, CN II-XII grossly intact. ABSENT: motor sensory deficit Psychiatric exam: PRESENT: appropriate affect, normal mood. ABSENT: homicidal ideation, suicidal ideation Skin exam: PRESENT: dry, intact, warm. ABSENT: cyanosis, rash Results Laboratory Results: 12/29/19 04:35 12/30/19 04:04 12/30/19 04:04 Sodium 136.2 L Potassium 4.4 Chloride 100 Carbon Dioxide 24 Anion Gap 12 BUN 27 H Creatinine 0.93 Est GFR ( Amer) > 60 Glucose 217 H Calcium 9.5 12/25/19 04:20 Blood Blood Culture - Final NO GROWTH IN 5 DAYS 12/25/19 02:43 Blood Blood Culture - Final NO GROWTH IN 5 DAYS 12/24/19 12/24/19 12/24/19 15:00 15:00 18:15 Creatine Kinase 346 H CK-MB (CK-2) 1.89 Troponin I < 0.012 < 0.012 NT-Pro-B Natriuret Pep 107 12/25/19 12/25/19 12/25/19 02:43 02:43 07:17 Creatine Kinase 136 121 CK-MB (CK-2) 1.38 Troponin I < 0.012 NT-Pro-B Natriuret Pep 12/25/19 12/25/19 12/25/19 07:17 13:28 13:28 Creatine Kinase 86 CK-MB (CK-2) 1.09 0.71 Troponin I < 0.012 < 0.012 NT-Pro-B Natriuret Pep Impressions: Head CT 12/24/19 00:00 IMPRESSION: NORMAL BRAIN CT WITHOUT CONTRAST. EVIDENCE OF ACUTE STROKE: NO. Chest/Abdomen CTA 12/24/19 17:44 IMPRESSION: 1. There is no aortic aneurysm or dissection. There is no pulmonary embolus. 2. Small right pneumothorax. (less than 10%). 3. Ground-glass infiltrates in the lower lobes suggests mild pulmonary edema versus chronic interstitial changes. 4. Airspace disease in both lower lobes, right more than left, pneumonia versus atelectasis. Ankle X-Ray 12/24/19 18:02 IMPRESSION: NO FRACTURE. Femur X-Ray 12/24/19 18:02 IMPRESSION: NEGATIVE STUDY OF THE RIGHT FEMUR. NO RADIOGRAPHIC EVIDENCE OF ACUTE INJURY. Hip/Pelvis X-Ray 12/24/19 18:02 IMPRESSION: Negative right hip. Lower lumbar degenerative changes. Knee X-Ray 12/24/19 18:02 IMPRESSION: NEGATIVE STUDY OF THE RIGHT KNEE. NO RADIOGRAPHIC EVIDENCE OF ACUTE INJURY. Tibia/Fibula X-Ray 12/24/19 18:02 IMPRESSION: NO RADIOGRAPHIC EVIDENCE OF ACUTE INJURY. Head MRI 12/24/19 20:57 IMPRESSION: No acute intracranial hemorrhage, mass, or evidence of acute infarct. Mild chronic microvascular ischemic change with generalized atrophy. Bilateral mastoid air cell disease. Nonspecific soft tissue protuberance/signal abnormality located about the right posterior parietal scalp towards the vertex, new from the previous examination dated 07/22/2019. Correlate with physical examination as this could indicate a small soft tissue hematoma. copyright 2010 [employer] [facility] [employer]- All Rights Reserved Carotid Doppler Study 12/25/19 00:00 IMPRESSION: NO HEMODYNAMICALLY SIGNIFICANT STENOSIS. Chest X-Ray 12/28/19 00:00 IMPRESSION: Borderline heart size. No pulmonary edema. Left lower lobe pneumonia. Cannot exclude limited right lower lobe pneumonia. Assessment & Plan - Diagnosis (1) Acute kidney failure Qualifiers: Acute renal failure type: unspecified Qualified Code(s): N17.9 - Acute kidney failure, unspecified Is this a current diagnosis for this admission?: Yes (2) Chest pain Qualifiers: Chest pain type: chest pain on breathing Qualified Code(s): R07.1 - Chest pain on breathing; R07.81 - Pleurodynia Is this a current diagnosis for this admission?: Yes (3) Pneumonia of both lower lobes Qualifiers: Pneumonia type: due to unspecified organism Qualified Code(s): J18.9 - Pneumonia, unspecified organism Is this a current diagnosis for this admission?: Yes (4) Pneumothorax, right Is this a current diagnosis for this admission?: Yes (5) Syncope and collapse Is this a current diagnosis for this admission?: Yes (6) COPD (chronic obstructive pulmonary disease) Qualifiers: COPD type: chronic bronchitis Is this a current diagnosis for this admission?: Yes (7) Coronary artery disease Qualifiers: Coronary Disease-Associated Artery/Lesion type: [place] artery Associated angina: without angina Is this a current diagnosis for this admission?: Yes (8) Hypertension Qualifiers: Hypertension type: essential hypertension Is this a current diagnosis for this admission?: Yes (9) Nausea Is this a current diagnosis for this admission?: Yes (10) Sleep apnea syndrome Qualifiers: Sleep apnea type: unspecified type Is this a current diagnosis for this admission?: Yes Plan: Patient needs to use a CPAP patient's daily (11) Type 2 diabetes mellitus Qualifiers: Diabetes mellitus complication status: with other specified complication Is this a current diagnosis for this admission?: Yes - Time Time Spent with patient: 15-24 minutes Level of Care: IMCU Medications reviewed and adjusted accordingly: Yes Anticipated discharge: SNF Within: Other - Plan Summary Plan Summary: Start the patient on a MiraLAX and Colace discussed with the patient's to move around physical therapy continues on nebulizer treatments
[2019-12-30] MEDS: POLYETHYLENE GLYCOL 3350 POWDER 17 GM/1 PACKET PO SCH (09:49)
[2019-12-30] MEDS: CEFEPIME 1 GM/D5W RTU 1 GM/50 ML RTUPB IV SCH ×2 (09:49→21:21)
[2019-12-30] MEDS: PANTOPRAZOLE SODIUM 40 MG VIAL IV SCH ×2 (09:49→21:22)
[2019-12-30] MEDS: AMLODIPINE BESYLATE 10 MG TABLET PO SCH (09:49)
[2019-12-30] MEDS: METOPROLOL TARTRATE 25 MG TABLET PO SCH ×2 (09:49→21:23)
[2019-12-30] MEDS: ENOXAPARIN SODIUM INJ 40 MG/0.4 ML DISP.SYRIN SUBCUT SCH (09:50)
[2019-12-30] MEDS: FLUTICASONE/UMECLIDIN/VILANTER 100-62.5-25 MCG/DOSE IH SCH (09:53)
[2019-12-30] MEDS: MECLIZINE HCL 12.5 MG TABLET PO SCH (09:53)
[2019-12-30] MEDS: INSULIN GLARGINE,HUM.REC.ANLOG 1,000 UNIT/10 ML VIAL SUBCUT SCH ×2 (09:54→21:37)
[2019-12-30] MEDS: TAMSULOSIN HCL 0.4 MG CAP.SR.24H PO SCH (17:32)
[2019-12-30] MEDS: MONTELUKAST SODIUM 10 MG TABLET PO SCH (17:32)
[2019-12-30] MEDS: LIDOCAINE 5% (700 MG) TRANSDERMAL ADH..PATCH TP SCH (17:32)
[2019-12-30] MEDS: ATORVASTATIN CALCIUM 40 MG TABLET PO SCH (21:22)
[2019-12-30] MEDS: TRAMADOL HCL 50 MG TABLET PO PRN (21:23)
--- NOTE | 2019-12-30 21:53 | Progress Note ---
Provider Note Provider Note: Cardiology PROGRESS NOTE by Dr. Sushma Washington on 12/30/2019. Subjective: The patient continues to have dry cough. He denies any shortness of breath. There is no chest pain or discomfort. There is no PND orthopnea. There is no leg edema. There is no arrhythmia seen on the monitor. There is no TIA CVA symptoms. PHYSICAL EXAMINATION: The patient is well-built. In no acute distress. Selected Entries 12/30/19 12/30/19 12/30/19 09:07 10:00 10:58 Temperature 98.2 F Temperature Oral Source Pulse Rate 64 Respiratory 20 17 Rate Blood Pressure 174/68 H Blood Pressure 103 Mean BP Location Right Arm BP Position Supine O2 Sat by Pulse 93 Oximetry Oxygen Delivery Nasal Cannula Method ( includes room air) Oxygen Flow 3 Rate Oxygen Delivery Room Air Method HEAD: Is atraumatic normocephalic. EYES: Pupils are equal round regular reactive to light accommodation. Extraocular movements are normal. There is no conjunctival pallor. There is no scleral icterus. Ears: Tympanic membranes are intact. External auditory canals are clear. NOSE: There is no deviated nasal septum. There is no inflammation nasal mucous membrane. MOUTH: Mucous membranes of the mouth are moist the tongue is moist. There is no ulcers. THROAT: There is no redness of the oropharynx. There is no exudates. SKIN: There is no skin rashes or skin lesions. There is no petechiae. There is some mild ecchymosis in the right chest wall. NECK: Supple. There is no JVD. Carotids are equal there is no bruit. There is no lymphadenopathy. There is no goiter. There is no accessory muscle respiration use. TRACHEA: Is central. LUNGS: There is diminished air entry prolonged expiration. There is a few occasional rhonchi. There is no rales of CHF. There is no crackles of pneumonia. On percussion there is hyperresonance. There is significant chest wall tenderness in the right side of the chest. This is reproducible by pressing on the chest wall. There is no pleural rub. HEART: S1-S2 is heard. There is no S3 gallop. There is no S4 gallop. There is systolic murmur of left ear in the aortic area, and systolic murmur in the left sternal border and the apex there is no rub. ABDOMEN: Soft. There is nontender. There is no paraspinal megaly. Bowel sounds are well heard. EXTREMITIES: Femorals are diminished. There is no femoral bruits. Leg pulses are diminished. There is no pedal edema. There is no DVT or cellulitis. There is no calf tenderness. [employer]: The patient is conscious awake alert oriented x3 with no focal deficits. PSYCHIATRIC: The patient judgment insight are intact her affect is normal. Labs- All tests 24 hr 12/30/19 12/30/19 12/30/19 04:04 07:22 11:01 Sodium 136.2 L Potassium 4.4 Chloride 100 Carbon Dioxide 24 Anion Gap 12 BUN 27 H Creatinine 0.93 Est GFR ( Amer) > 60 Est GFR (MDRD) Non-Af > 60 Glucose 217 H POC Glucose 213 H 284 H Calcium 9.5 12/30/19 12/30/19 15:21 21:28 Sodium Potassium Chloride Carbon Dioxide Anion Gap BUN Creatinine Est GFR ( Amer) Est GFR (MDRD) Non-Af Glucose POC Glucose 176 H 246 H Calcium Chest X-Ray 12/24/19 00:00 IMPRESSION: FAINT DENSITIES IN THE LUNG BASES WHICH MAY BE DUE TO ATELECTASIS VERSUS DEVELOPING PNEUMONIA. Head CT 12/24/19 00:00 IMPRESSION: NORMAL BRAIN CT WITHOUT CONTRAST. EVIDENCE OF ACUTE STROKE: NO. Chest/Abdomen CTA 12/24/19 17:44 IMPRESSION: 1. There is no aortic aneurysm or dissection. There is no pulmonary embolus. 2. Small right pneumothorax. (less than 10%). 3. Ground-glass infiltrates in the lower lobes suggests mild pulmonary edema versus chronic interstitial changes. 4. Airspace disease in both lower lobes, right more than left, pneumonia versus atelectasis. Ankle X-Ray 12/24/19 18:02 IMPRESSION: NO FRACTURE. Femur X-Ray 12/24/19 18:02 IMPRESSION: NEGATIVE STUDY OF THE RIGHT FEMUR. NO RADIOGRAPHIC EVIDENCE OF ACUTE INJURY. Hip/Pelvis X-Ray 12/24/19 18:02 IMPRESSION: Negative right hip. Lower lumbar degenerative changes. Knee X-Ray 12/24/19 18:02 IMPRESSION: NEGATIVE STUDY OF THE RIGHT KNEE. NO RADIOGRAPHIC EVIDENCE OF ACUTE INJURY. Tibia/Fibula X-Ray 12/24/19 18:02 IMPRESSION: NO RADIOGRAPHIC EVIDENCE OF ACUTE INJURY. Head MRI 12/24/19 20:57 IMPRESSION: No acute intracranial hemorrhage, mass, or evidence of acute infarct. Mild chronic microvascular ischemic change with generalized atrophy. Bilateral mastoid air cell disease. Nonspecific soft tissue protuberance/signal abnormality located about the right posterior parietal scalp towards the vertex, new from the previous examination dated 07/22/2019. Correlate with physical examination as this could indicate a small soft tissue hematoma. copyright 2010 [employer]- All Rights Reserved Carotid Doppler Study 12/25/19 00:00 IMPRESSION: NO HEMODYNAMICALLY SIGNIFICANT STENOSIS. Chest X-Ray 12/25/19 00:00 IMPRESSION: Stable chest as above. Diminished basilar aeration. Chest X-Ray 12/28/19 00:00 IMPRESSION: Borderline heart size. No pulmonary edema. Left lower lobe pneumonia. Cannot exclude limited right lower lobe pneumonia. REVIEW OF RECORDS FROM [facility], and [facility] IMPRESSION/RECOMMENDATION: 1. Syncope: Etiology still not clear. Note that the patient states he had a coughing spell and felt weak and sat down. Subsequently the patient stood up and that is when he became syncopal. He states he is not sure how long he was syncopal. He states when he woke up he was confused. Hence this seems to be either secondary to orthostatic hypotension or orthopnea or TIA. The patient has no prior history of CVA. But the patient also claims that he has is LV function is only 50% of normal. Hence the patient would like would be recommended to have a 30-day event monitor. We will check her echo in the morning. Note that the patient has no anginal symptoms and had no anginal chest pains or palpitations or shortness of breath prior to or after the syncopal episode. His cardiac enzymes are negative and his EKG is normal. 2. Bibasilar pneumonia 3. Acute acute renal failure on? Chronic renal failure. GFR slightly improved. Will recheck SMA-7 tomorrow. 4. COPD: Seems to be at baseline. Patient on oxygen. Continue anti-COPD treatment. 5. Diabetes mellitus: Continue diabetic medication and Accu-Cheks as per protocol. 6. Hypertension: Blood pressure slightly elevated this is probably due to pain due to his chest wall contusion. Will increase patient's antihypertensive. Will increase hydralazine to 50 mg p.o. every 8 hours.. 7. Right-sided chest pain secondary to fall and chest wall contusion. Also the patient is a small sided pneumothorax. This pain could be contributing to the patient's high blood pressure. Would recommend significant analgesics to for pain control since this cannot only cause his blood pressure to go up, but also can cause him to breathe shallowly leading to respiratory complications. Right- sided chest pain is improving. 8. Moderate aortic stenosis: At present requires no treatment. 9. Cough:? Etiology. Medications reviewed. Medications adjusted. Medical regimen and management plan discussed with attending physician. At present cardiac darby medical regimen decision making is of moderate to high complexity. 40 minutes spent on this patient with more than 50% of time spent in direct patient care.
[2019-12-30] MEDS ORDERED: BISACODYL 10 MG SUPP.RECT PR ONE ×2 (22:46→23:00)
[2019-12-31] MEDS: BENZONATATE 100 MG CAPSULE PO SCH ×3 (06:17→21:43)
[2019-12-31] MEDS: HYDRALAZINE HCL 25 MG TABLET PO SCH ×3 (06:17→21:42)
[2019-12-31 06:18] LABS: ANION GAP 11 (5-19); BLOOD UREA NITROGEN 26 mg/dL (7-20); CALCIUM 9.9 mg/dL (8.4-10.2); CARBON DIOXIDE 24 mmol/L (22-30); CHLORIDE 102 mmol/L (98-107); GLUCOSE 197 mg/dL (75-110); POTASSIUM 4.3 mmol/L (3.6-5.0)
[2019-12-31 06:21] LABS: ABSOLUTE EOSINOPHILS # (AUTO) 0.2 10^3/uL (0.0-0.6); ABSOLUTE LYMPHOCYTES (AUTO) 1.5 10^3/uL (0.5-4.7); ABSOLUTE MONOCYTES (AUTO) 0.6 10^3/uL (0.1-1.4); ABSOLUTE NEUT (AUTO) 3.2 10^3/uL (1.7-8.2); BASOPHILS % (AUTO) 0.8 % (0-2); EOSINOPHILS % (AUTO) 3.5 % (0-6); HEMATOCRIT 37.5 % (37.9-51.0); HEMOGLOBIN 12.6 g/dL (13.5-17.0); LYMPHOCYTES % (AUTO) 27.2 % (13-45); MEAN CORPUSCULAR HGB CONC 33.7 g/dL (32.0-36.0); MEAN CORPUSCULAR VOLUME 77 fl (80-97); MONOCYTES % (AUTO) 11.4 % (3-13); PLATELET COUNT 294 10^3/uL (150-450); RED BLOOD COUNT 4.86 10^6/uL (4.35-5.55); SEGMENTED NEUTROPHILS % (AUTO) 57.1 % (42-78); TOTAL CELLS COUNTED % (AUTO) 100 %; WHITE BLOOD COUNT 5.7 10^3/uL (4.0-10.5)
[2019-12-31] MEDS: INSULIN LISPRO 100 UNIT/ML 3 ML VIAL SUBCUT SCH ×4 (08:09→21:42)
--- NOTE | 2019-12-31 08:16 | PDOC PROGRESS REPORT ---
Subjective Progress Note for:: 12/31/19 Subjective:: Patient is currently doing well percent have a positive bowel movement No chest pain no short of breath No fever no chills Reason For Visit: SOB, PNEUMONIA Physical Exam Vital Signs: Temp Pulse Resp BP Pulse Ox 98.1 F 60 20 160/67 H 94 12/31/19 04:16 12/31/19 07:00 12/31/19 04:16 12/31/19 04:16 12/31/19 04:16 Intake & Output 12/30/19 12/31/19 01/01/20 06:59 06:59 06:59 Intake Total 940 1320 Output Total 1495 1175 Balance -555 145 Weight 87 kg General appearance: PRESENT: no acute distress, well-developed, well-nourished Head exam: PRESENT: atraumatic, normocephalic Eye exam: PRESENT: conjunctiva pink, EOMI, PERRLA. ABSENT: scleral icterus Ear exam: PRESENT: normal external ear exam Mouth exam: PRESENT: moist, tongue midline Neck exam: PRESENT: full ROM. ABSENT: carotid bruit, JVD, lymphadenopathy, thyromegaly Respiratory exam: PRESENT: clear to auscultation raya Cardiovascular exam: PRESENT: RRR. ABSENT: diastolic murmur, rubs, systolic murmur Pulses: PRESENT: normal dorsalis pedis pul, +2 pedal pulses bilateral Vascular exam: PRESENT: normal capillary refill GI/Abdominal exam: PRESENT: normal bowel sounds, soft. ABSENT: distended, guarding, mass, organolmegaly, rebound, tenderness Rectal exam: PRESENT: deferred Musculoskeletal exam: PRESENT: ambulatory Neurological exam: PRESENT: alert, awake, oriented to person, oriented to place, oriented to time, oriented to situation, CN II-XII grossly intact. ABSENT: motor sensory deficit Psychiatric exam: PRESENT: appropriate affect, normal mood. ABSENT: homicidal ideation, suicidal ideation Skin exam: PRESENT: dry, intact, warm. ABSENT: cyanosis, rash Results Laboratory Results: 12/31/19 04:40 12/31/19 04:40 12/31/19 12/31/19 04:40 04:40 WBC 5.7 RBC 4.86 Hgb 12.6 L Hct 37.5 L MCV 77 L MCH 26.0 L MCHC 33.7 RDW 14.0 Plt Count 294 Seg Neutrophils % 57.1 Sodium 137.0 Potassium 4.3 Chloride 102 Carbon Dioxide 24 Anion Gap 11 BUN 26 H Creatinine 0.82 Est GFR ( Amer) > 60 Glucose 197 H Calcium 9.9 12/25/19 04:20 Blood Blood Culture - Final NO GROWTH IN 5 DAYS 12/24/19 12/24/19 12/24/19 15:00 15:00 18:15 Creatine Kinase 346 H CK-MB (CK-2) 1.89 Troponin I < 0.012 < 0.012 NT-Pro-B Natriuret Pep 107 12/25/19 12/25/19 12/25/19 02:43 02:43 07:17 Creatine Kinase 136 121 CK-MB (CK-2) 1.38 Troponin I < 0.012 NT-Pro-B Natriuret Pep 12/25/19 12/25/19 12/25/19 07:17 13:28 13:28 Creatine Kinase 86 CK-MB (CK-2) 1.09 0.71 Troponin I < 0.012 < 0.012 NT-Pro-B Natriuret Pep Impressions: Head CT 12/24/19 00:00 IMPRESSION: NORMAL BRAIN CT WITHOUT CONTRAST. EVIDENCE OF ACUTE STROKE: NO. Chest/Abdomen CTA 12/24/19 17:44 IMPRESSION: 1. There is no aortic aneurysm or dissection. There is no pulmonary embolus. 2. Small right pneumothorax. (less than 10%). 3. Ground-glass infiltrates in the lower lobes suggests mild pulmonary edema versus chronic interstitial changes. 4. Airspace disease in both lower lobes, right more than left, pneumonia versus atelectasis. Ankle X-Ray 12/24/19 18:02 IMPRESSION: NO FRACTURE. Femur X-Ray 12/24/19 18:02 IMPRESSION: NEGATIVE STUDY OF THE RIGHT FEMUR. NO RADIOGRAPHIC EVIDENCE OF ACUTE INJURY. Hip/Pelvis X-Ray 12/24/19 18:02 IMPRESSION: Negative right hip. Lower lumbar degenerative changes. Knee X-Ray 12/24/19 18:02 IMPRESSION: NEGATIVE STUDY OF THE RIGHT KNEE. NO RADIOGRAPHIC EVIDENCE OF ACUTE INJURY. Tibia/Fibula X-Ray 12/24/19 18:02 IMPRESSION: NO RADIOGRAPHIC EVIDENCE OF ACUTE INJURY. Head MRI 12/24/19 20:57 IMPRESSION: No acute intracranial hemorrhage, mass, or evidence of acute infarct. Mild chronic microvascular ischemic change with generalized atrophy. Bilateral mastoid air cell disease. Nonspecific soft tissue protuberance/signal abnormality located about the right posterior parietal scalp towards the vertex, new from the previous examination dated 07/22/2019. Correlate with physical examination as this could indicate a small soft tissue hematoma. copyright 2010 [employer]- All Rights Reserved Carotid Doppler Study 12/25/19 00:00 IMPRESSION: NO HEMODYNAMICALLY SIGNIFICANT STENOSIS. Chest X-Ray 12/28/19 00:00 IMPRESSION: Borderline heart size. No pulmonary edema. Left lower lobe pneumonia. Cannot exclude limited right lower lobe pneumonia. Assessment & Plan - Diagnosis (1) Acute kidney failure Qualifiers: Acute renal failure type: unspecified Qualified Code(s): N17.9 - Acute kidney failure, unspecified Is this a current diagnosis for this admission?: Yes (2) Chest pain Qualifiers: Chest pain type: chest pain on breathing Qualified Code(s): R07.1 - Chest pain on breathing; R07.81 - Pleurodynia Is this a current diagnosis for this admission?: Yes (3) Pneumonia of both lower lobes Qualifiers: Pneumonia type: due to unspecified organism Qualified Code(s): J18.9 - Pneumonia, unspecified organism Is this a current diagnosis for this admission?: Yes (4) Pneumothorax, right Is this a current diagnosis for this admission?: Yes (5) Syncope and collapse Is this a current diagnosis for this admission?: Yes (6) COPD (chronic obstructive pulmonary disease) Qualifiers: COPD type: chronic bronchitis Is this a current diagnosis for this admission?: Yes (7) Coronary artery disease Qualifiers: Coronary Disease-Associated Artery/Lesion type: [place] artery Associated angina: without angina Is this a current diagnosis for this admission?: Yes (8) Hypertension Qualifiers: Hypertension type: essential hypertension Is this a current diagnosis for this admission?: Yes (9) Nausea Is this a current diagnosis for this admission?: Yes (10) Sleep apnea syndrome Qualifiers: Sleep apnea type: unspecified type Is this a current diagnosis for this admission?: Yes (11) Type 2 diabetes mellitus Qualifiers: Diabetes mellitus complication status: with other specified complication Is this a current diagnosis for this admission?: Yes - Time Time Spent with patient: 25-34 minutes Level of Care: IMCU Anticipated discharge: SNF, Acute Rehab Within: within 24 hours, Other - Plan Summary Plan Summary: Continues to current medications discussed with the nursing staff to try to wean off from the oxygen's hopefully if the patient is remained stable next 24 will d ischarge the patient's
[2019-12-31] MEDS: BUDESONIDE NEB 0.5 MG/2 ML AMPUL NEB SCH ×2 (09:13→20:25)
[2019-12-31] MEDS: IPRATROPIUM/ALBUTEROL 0.5-2.5 MG/3 ML AMPUL NEB SCH ×4 (09:14→20:25)
[2019-12-31] MEDS: CEFEPIME 1 GM/D5W RTU 1 GM/50 ML RTUPB IV SCH (11:32)
[2019-12-31] MEDS: ENOXAPARIN SODIUM INJ 40 MG/0.4 ML DISP.SYRIN SUBCUT SCH (11:33)
[2019-12-31] MEDS: AMLODIPINE BESYLATE 10 MG TABLET PO SCH (11:34)
[2019-12-31] MEDS: METOPROLOL TARTRATE 25 MG TABLET PO SCH ×2 (11:35→21:43)
[2019-12-31] MEDS: MECLIZINE HCL 12.5 MG TABLET PO SCH (11:37)
[2019-12-31] MEDS: POLYETHYLENE GLYCOL 3350 POWDER 17 GM/1 PACKET PO SCH (11:38)
[2019-12-31] MEDS: PANTOPRAZOLE SODIUM 40 MG VIAL IV SCH (11:39)
[2019-12-31] MEDS: INSULIN GLARGINE,HUM.REC.ANLOG 1,000 UNIT/10 ML VIAL SUBCUT SCH ×2 (11:59→21:42)
[2019-12-31] MEDS: FLUTICASONE/UMECLIDIN/VILANTER 100-62.5-25 MCG/DOSE IH SCH (12:05)
[2019-12-31] MEDS: TAMSULOSIN HCL 0.4 MG CAP.SR.24H PO SCH (17:07)
[2019-12-31] MEDS: MONTELUKAST SODIUM 10 MG TABLET PO SCH (17:08)
[2019-12-31] MEDS: LIDOCAINE 5% (700 MG) TRANSDERMAL ADH..PATCH TP SCH (17:09)
[2019-12-31] MEDS: ATORVASTATIN CALCIUM 40 MG TABLET PO SCH (21:43)
[2020-01-01] MEDS: HYDRALAZINE HCL 25 MG TABLET PO SCH (06:39)
[2020-01-01] MEDS: BENZONATATE 100 MG CAPSULE PO SCH (06:39)
[2020-01-01] MEDS: BUDESONIDE NEB 0.5 MG/2 ML AMPUL NEB SCH (08:19)
[2020-01-01] MEDS: IPRATROPIUM/ALBUTEROL 0.5-2.5 MG/3 ML AMPUL NEB SCH (08:19)
[2020-01-01] MEDS: INSULIN LISPRO 100 UNIT/ML 3 ML VIAL SUBCUT SCH (08:28)
--- NOTE | 2020-01-01 08:47 | PDOC TRANSFER SUMMARY ---
Impression - Admit/DC Date/PCP Admission Date/Primary Care Provider: 12/24/19 21:07 ZAIRE GEIGER MD Discharge Date: 01/01/20 - Discharge Diagnosis (1) Acute kidney failure Is this a current diagnosis for this admission?: Yes (2) Chest pain Is this a current diagnosis for this admission?: Yes (3) Pneumonia of both lower lobes Is this a current diagnosis for this admission?: Yes (4) Pneumothorax, right Is this a current diagnosis for this admission?: Yes (5) Syncope and collapse Is this a current diagnosis for this admission?: Yes (6) COPD (chronic obstructive pulmonary disease) Is this a current diagnosis for this admission?: Yes (7) Coronary artery disease Is this a current diagnosis for this admission?: Yes (8) Hypertension Is this a current diagnosis for this admission?: Yes (9) Nausea Is this a current diagnosis for this admission?: Yes (10) Sleep apnea syndrome Is this a current diagnosis for this admission?: Yes (11) Type 2 diabetes mellitus Is this a current diagnosis for this admission?: Yes - Additional Information Discharge Diet: Diabetic Discharge Activity: Activity As Tolerated Referrals: ZAIRE GEIGER MD [Primary Care Provider] - Follow up as needed (Premier patient.) Prescriptions: Hydralazine HCl [Apresoline 25 mg Tablet] 50 mg PO Q8 #90 tablet Cefuroxime Axetil [Ceftin 500 mg Tablet] 1 tab PO BID #14 tablet Bisacodyl [Dulcolax 5 mg Tablet] 15 mg PO DAILYP PRN #30 tabec PRN Reason: Ipratropium/Albuterol Sulfate [Duoneb 3 ml Ampul] 3 ml NEB RTQ8 #120 vial.neb Insulin Lispro [Humalog Insulin (Lispro) 100 unit/mL] 0 - 12 unit SUBCUT ACHS #1 unit Insulin Glargine,Hum.rec.anlog [Lantus Insulin 100 Unit/1 ml 10 ml] 30 unit SUBCUT Q12 #60 unit Lidocaine [Lidoderm 5% (700 mg) Transdermal Patch] 1 patch TP QPM #30 adh..patch Polyethylene Glycol 3350 [Miralax Powder 17 gm/Packet] 17 gm PO DAILY #30 powd.pack Guaifenesin [Robitussin Syrup 200 mg/10 ml Ud Cup] 200 mg PO Q4HP PRN #120 udc PRN Reason: Tramadol HCl [Ultram 50 mg Tablet] 50 mg PO Q6HP PRN #30 tablet PRN Reason: Pain Scale Of 3 Home Medications: Amlodipine Besylate [Norvasc 10 mg Tablet] 10 mg PO DAILY 12/24/19 Atorvastatin Calcium [Lipitor 40 mg Tablet] 40 mg PO QHS 12/24/19 Budesonide [Pulmicort Neb 0.5 mg/2 ml Ampul] 1 vial NEB BID 12/24/19 Fluticasone/Umeclidin/Vilanter [Trelegy 100-62.5-25 Mcg Ellipta 14 Dose/Dpi] 1 puff IH DAILY 12/24/19 Levocetirizine Dihydrochloride [Xyzal] 5 mg PO DAILY 12/24/19 Meclizine HCl [Antivert 12.5 mg Tablet] 12.5 mg PO DAILY 12/24/19 Metoprolol Tartrate [Lopressor 25 mg Tablet] 25 mg PO Q12 12/24/19 Montelukast Sodium [Singulair 10 mg Tablet] 10 mg PO QPM 12/24/19 Omeprazole 40 mg PO DAILY 12/24/19 Tamsulosin HCl [Flomax 0.4 mg Cap.sr] 0.4 mg PO QPM 12/24/19 Bisacodyl [Dulcolax 5 mg Tablet] 15 mg PO DAILYP PRN #30 tabec 01/01/20 Cefuroxime Axetil [Ceftin 500 mg Tablet] 1 tab PO BID #14 tablet 01/01/20 Furosemide [Lasix 40 mg Tablet] 20 mg PO DAILY #30 01/01/20 Guaifenesin [Robitussin Syrup 200 mg/10 ml Ud Cup] 200 mg PO Q4HP PRN #120 udc 01/01/20 Hydralazine HCl [Apresoline 25 mg Tablet] 50 mg PO Q8 #90 tablet 01/01/20 Insulin Glargine,Hum.rec.anlog [Lantus Insulin 100 Unit/1 ml 10 ml] 30 unit SUBCUT Q12 #60 unit 01/01/20 Insulin Lispro [Humalog Insulin (Lispro) 100 unit/mL] 0 - 12 unit SUBCUT ACHS #1 unit 01/01/20 Ipratropium/Albuterol Sulfate [Duoneb 3 ml Ampul] 3 ml NEB RTQ8 #120 vial.neb 01/01/20 Lidocaine [Lidoderm 5% (700 mg) Transdermal Patch] 1 patch TP QPM #30 adh..patch 01/01/20 Polyethylene Glycol 3350 [Miralax Powder 17 gm/Packet] 17 gm PO DAILY #30 powd.pack 01/01/20 Tramadol HCl [Ultram 50 mg Tablet] 50 mg PO Q6HP PRN #30 tablet 01/01/20 History of Present Illiness History of Present Illness: TAHIR FOURNIER is a 64 year old male This is a 64-year-old male's with a history of the type 2 diabetes history of the hypertension history of the coronary artery disease hyperlipidemia multiple other medical problems basically a 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 Infanet general surgery and he called me this morning and said that no need for anything to do with the pneumothorax because it is very small unless patient have any clinical respiratory distress Patient also have a ongoing problem with this cough for the last several weeks patient received several weeks of antibiotics history of the COPD history of the gastro-porosisAnd the patient's I think scuffing a lot Patient's also complained with chest pain on the right side of the chest most likely chest contusions Patient's cardiac enzyme is all negative patient is usually seen by Dr. Victor the [place] [facility] Patient's CT head was negative MRI of the head was negative for any acute finding When I saw the patient in [facility] denied any chest pain except the chest wall pain on the right side patient does not remember how he passed out Hospital Course Hospital Course: Is a 64-year-old male with a history of the type 2 diabetes hypertension hyperlipidemia noncompliance coronary artery disease COPD came to the emergency department with a syncopal episodes and cough and congestion and found to be a pneumonia Patient is treated with IV antibiotics respiratory treatments Patient also seen by the cardiology for syncopal work-up echocardiogram done was all stable some mild aortic disease follow outpatients Patient also had a CT of the head MRI of the head was done was negative for any acute finding Patient's otherwise doing fair but very weak Patient other medical problem is quite stable Discussed with the patient and the at this point patient's week required to go to the rehab facility Patient is a noncompliance with the CPAP Patient to use the 2 L nasal cannula especially at night times Patient's needs to follow-up with the cardiology for Holter monitor and follow with the pulmonary Dr. Cole Patient's otherwise back to the baseline Very extensive discussions with the patient and her regarding the patient's current conditions we will continue to follow and further work-up I am more close to monitor to the nursing facilities Physical Exam Vital Signs: Temp Pulse Resp BP Pulse Ox 97.5 F 64 21 H 176/69 H 97 01/01/20 04:11 01/01/20 06:40 01/01/20 04:11 01/01/20 04:11 01/01/20 04:11 Intake & Output 12/31/19 01/01/20 01/02/20 06:59 06:59 06:59 Intake Total 1320 1277 Output Total 1175 2000 Balance 145 -723 General appearance: PRESENT: no acute distress, well-developed, well-nourished Head exam: PRESENT: atraumatic, normocephalic Eye exam: PRESENT: conjunctiva pink, EOMI, PERRLA. ABSENT: scleral icterus Ear exam: PRESENT: normal external ear exam Mouth exam: PRESENT: moist, tongue midline Neck exam: ABSENT: carotid bruit, JVD, lymphadenopathy, thyromegaly Respiratory exam: PRESENT: clear to auscultation raya. ABSENT: rales, rhonchi, wheezes Cardiovascular exam: PRESENT: RRR. ABSENT: diastolic murmur, rubs, systolic murmur Pulses: PRESENT: normal dorsalis pedis pul Vascular exam: PRESENT: normal capillary refill GI/Abdominal exam: PRESENT: normal bowel sounds, soft. ABSENT: distended, guarding, mass, organolmegaly, rebound, tenderness Rectal exam: PRESENT: deferred Extremities exam: PRESENT: full ROM. ABSENT: calf tenderness, clubbing, pedal edema Neurological exam: PRESENT: alert, awake, oriented to person, oriented to place, oriented to time, oriented to situation, CN II-XII grossly intact. ABSENT: motor sensory deficit Psychiatric exam: PRESENT: appropriate affect, normal mood. ABSENT: homicidal ideation, suicidal ideation Skin exam: PRESENT: dry, intact, warm. ABSENT: cyanosis, rash Results Laboratory Results: WBC 5.7 10^3/uL (4.0-10.5) 12/31/19 04:40 RBC 4.86 10^6/uL (4.35-5.55) 12/31/19 04:40 Hgb 12.6 g/dL (13.5-17.0) L 12/31/19 04:40 Hct 37.5 % (37.9-51.0) L 12/31/19 04:40 MCV 77 fl (80-97) L 12/31/19 04:40 MCH 26.0 pg (27.0-33.4) L 12/31/19 04:40 MCHC 33.7 g/dL (32.0-36.0) 12/31/19 04:40 RDW 14.0 % (11.5-14.0) 12/31/19 04:40 Plt Count 294 10^3/uL (150-450) 12/31/19 04:40 Lymph % (Auto) 27.2 % (13-45) 12/31/19 04:40 [place] % (Auto) 11.4 % (3-13) 12/31/19 04:40 Eos % (Auto) 3.5 % (0-6) 12/31/19 04:40 Baso % (Auto) 0.8 % (0-2) 12/31/19 04:40 Absolute Neuts (auto) 3.2 10^3/uL (1.7-8.2) 12/31/19 04:40 Absolute Lymphs (auto) 1.5 10^3/uL (0.5-4.7) 12/31/19 04:40 Absolute Monos (auto) 0.6 10^3/uL (0.1-1.4) 12/31/19 04:40 Absolute Eos (auto) 0.2 10^3/uL (0.0-0.6) 12/31/19 04:40 Absolute Basos (auto) 0.0 10^3/uL (0.0-0.2) 12/31/19 04:40 Seg Neutrophils % 57.1 % (42-78) 12/31/19 04:40 PT 12.9 SEC (11.4-15.4) 12/24/19 18:15 INR 0.97 12/24/19 18:15 APTT 26.7 SEC (23.5-35.8) 12/24/19 18:15 Carbonic Acid 1.23 mmol/L (1.05-1.35) 12/25/19 06:33 HCO3/H2CO3 Ratio 20:1 12/25/19 06:33 ABG pH 7.41 (7.35-7.45) 12/25/19 06:33 ABG pCO2 40.7 mmHg (35-45) 12/25/19 06:33 ABG pO2 65.4 mmHg (80-100) L 12/25/19 06:33 ABG HCO3 25.2 mmol/L (20-24) H 12/25/19 06:33 ABG Total CO2 26.5 mmol/L (23-27) 12/25/19 06:33 ABG O2 Saturation 93.1 % (94-98) L 12/25/19 06:33 ABG Base Excess 0.6 mmol/L 12/25/19 06:33 VBG pH 7.29 (7.30-7.42) L 12/24/19 18:15 VBG pCO2 57.7 mmHg (35-63) 12/24/19 18:15 VBG HCO3 26.9 mmol/L (20-32) 12/24/19 18:15 VBG Base Excess -0.8 mmol/L 12/24/19 18:15 FiO2 5L 12/25/19 06:33 Sodium 137.0 mmol/L (137-145) 12/31/19 04:40 Potassium 4.3 mmol/L (3.6-5.0) 12/31/19 04:40 Chloride 102 mmol/L (98-107) 12/31/19 04:40 Carbon Dioxide 24 mmol/L (22-30) 12/31/19 04:40 Anion Gap 11 (5-19) 12/31/19 04:40 BUN 26 mg/dL (7-20) H 12/31/19 04:40 Creatinine 0.82 mg/dL (0.52-1.25) 12/31/19 04:40 Est GFR ( Amer) > 60 (>60) 12/31/19 04:40 Est GFR (MDRD) Non-Af > 60 (>60) 12/31/19 04:40 Glucose 197 mg/dL (75-110) H 12/31/19 04:40 POC Glucose 197 mg/dL (70-110) H 01/01/20 07:50 Lactic Acid 0.8 mmol/L (0.7-2.1) 12/25/19 02:43 Calcium 9.9 mg/dL (8.4-10.2) 12/31/19 04:40 Magnesium 1.8 mg/dL (1.6-2.3) 12/27/19 04:17 Total Bilirubin 0.6 mg/dL (0.2-1.3) 12/28/19 05:52 Direct Bilirubin 0.1 mg/dL (0.0-0.4) 12/28/19 05:52 Neonat Total Bilirubin Not Reportable 12/28/19 05:52 Neonat Direct Bilirubin Not Reportable 12/28/19 05:52 Neonat Indirect Bili Not Reportable 12/28/19 05:52 AST 15 U/L (17-59) L 12/28/19 05:52 ALT 14 U/L (<50) 12/28/19 05:52 Alkaline Phosphatase 60 U/L (38-126) 12/28/19 05:52 Creatine Kinase 86 U/L (55-170) 12/25/19 13:28 CK-MB (CK-2) 0.71 ng/mL (<4.55) 12/25/19 13:28 Troponin I < 0.012 ng/mL 12/25/19 13:28 NT-Pro-B Natriuret Pep 107 pg/mL (<125) 12/24/19 18:15 Total Protein 6.2 g/dL (6.3-8.2) L 12/28/19 05:52 Albumin 3.1 g/dL (3.5-5.0) L 12/28/19 05:52 12/24/19 12/24/19 12/25/19 15:00 18:15 02:43 CK-MB (CK-2) 1.89 1.38 Troponin I < 0.012 < 0.012 < 0.012 NT-Pro-B Natriuret Pep 107 12/25/19 12/25/19 07:17 13:28 CK-MB (CK-2) 1.09 0.71 Troponin I < 0.012 < 0.012 NT-Pro-B Natriuret Pep Impressions: Chest X-Ray 12/24/19 00:00 IMPRESSION: FAINT DENSITIES IN THE LUNG BASES WHICH MAY BE DUE TO ATELECTASIS VERSUS DEVELOPING PNEUMONIA. Head CT 12/24/19 00:00 IMPRESSION: NORMAL BRAIN CT WITHOUT CONTRAST. EVIDENCE OF ACUTE STROKE: NO. Chest/Abdomen CTA 12/24/19 17:44 IMPRESSION: 1. There is no aortic aneurysm or dissection. There is no pulmonary embolus. 2. Small right pneumothorax. (less than 10%). 3. Ground-glass infiltrates in the lower lobes suggests mild pulmonary edema versus chronic interstitial changes. 4. Airspace disease in both lower lobes, right more than left, pneumonia versus atelectasis. Ankle X-Ray 12/24/19 18:02 IMPRESSION: NO FRACTURE. Femur X-Ray 12/24/19 18:02 IMPRESSION: NEGATIVE STUDY OF THE RIGHT FEMUR. NO RADIOGRAPHIC EVIDENCE OF ACUTE INJURY. Hip/Pelvis X-Ray 12/24/19 18:02 IMPRESSION: Negative right hip. Lower lumbar degenerative changes. Knee X-Ray 12/24/19 18:02 IMPRESSION: NEGATIVE STUDY OF THE RIGHT KNEE. NO RADIOGRAPHIC EVIDENCE OF ACUTE INJURY. Tibia/Fibula X-Ray 12/24/19 18:02 IMPRESSION: NO RADIOGRAPHIC EVIDENCE OF ACUTE INJURY. Head MRI 12/24/19 20:57 IMPRESSION: No acute intracranial hemorrhage, mass, or evidence of acute infarct. Mild chronic microvascular ischemic change with generalized atrophy. Bilateral mastoid air cell disease. Nonspecific soft tissue protuberance/signal abnormality located about the right posterior parietal scalp towards the vertex, new from the previous examination dated 07/22/2019. Correlate with physical examination as this could indicate a small soft tissue hematoma. copyright 2010 [employer]- All Rights Reserved Carotid Doppler Study 12/25/19 00:00 IMPRESSION: NO HEMODYNAMICALLY SIGNIFICANT STENOSIS. Chest X-Ray 12/25/19 00:00 IMPRESSION: Stable chest as above. Diminished basilar aeration. Chest X-Ray 12/28/19 00:00 IMPRESSION: Borderline heart size. No pulmonary edema. Left lower lobe pneumonia. Cannot exclude limited right lower lobe pneumonia. Plan Time Spent: Greater than 30 Minutes - CBC and Chem-7 next week follow-up with the cardiology and follow-up with the pulmonary Continues the p.o. antibiotic for 7 days repeat the chest x-ray Continues the nebulizer treatment 3 times a day Fall precautions Stroke Is this a Stroke Patient?: No Acute Heart Failure - Is this a Heart Failure Patient?: No
[2020-01-01] MEDS: AMLODIPINE BESYLATE 10 MG TABLET PO SCH (09:53)
[2020-01-01] MEDS: METOPROLOL TARTRATE 25 MG TABLET PO SCH (09:53)
[2020-01-01] MEDS: ENOXAPARIN SODIUM INJ 40 MG/0.4 ML DISP.SYRIN SUBCUT SCH (09:53)
[2020-01-01] MEDS: INSULIN GLARGINE,HUM.REC.ANLOG 1,000 UNIT/10 ML VIAL SUBCUT SCH (09:53)
[2020-01-01] MEDS: MECLIZINE HCL 12.5 MG TABLET PO SCH (09:53)
[2020-01-01] MEDS: POLYETHYLENE GLYCOL 3350 POWDER 17 GM/1 PACKET PO SCH (09:54)
[2020-01-01] MEDS: FLUTICASONE/UMECLIDIN/VILANTER 100-62.5-25 MCG/DOSE IH SCH (09:55)
[2020-01-01 10:46] VITALS: BP 156/85
== END 2020-01-01 11:35 | DRG 194 ==
LOC: ER 13:34 → EH 21:07 → 3W 12-25 00:39
PROVIDERS: ADMIT Family Medicine; ATTEND Family Medicine
DX: J18.9 Pneumonia, unspecified organism (principal); N17.9 Acute kidney failure, unspecified; J93.9 Pneumothorax, unspecified; J44.0 Chronic obstructive pulmonary disease with (acute) lower respiratory infection; I25.10 Atherosclerotic heart disease of native coronary artery without angina pectoris; G47.30 Sleep apnea, unspecified; E78.5 Hyperlipidemia, unspecified; E86.0 Dehydration; N18.9 Chronic kidney disease, unspecified; E11.22 Type 2 diabetes mellitus with diabetic chronic kidney disease; K21.9 Gastro-esophageal reflux disease without esophagitis; I12.9 Hypertensive chronic kidney disease with stage 1 through stage 4 chronic kidney disease, or unspecified chronic kidney disease; W19.XXXA Unspecified fall, initial encounter; D63.1 Anemia in chronic kidney disease; S20.211A Contusion of right front wall of thorax, initial encounter; I35.0 Nonrheumatic aortic (valve) stenosis; E78.00 Pure hypercholesterolemia, unspecified; I25.2 Old myocardial infarction; Z79.4 Long term (current) use of insulin; Z79.899 Other long term (current) drug therapy; Z91.19 Patient's noncompliance with other medical treatment and regimen; Z95.5 Presence of coronary angioplasty implant and graft; Z87.891 Personal history of nicotine dependence; Z82.49 Family history of ischemic heart disease and other diseases of the circulatory system; Z84.1 Family history of disorders of kidney and ureter; Z82.3 Family history of stroke; Z83.3 Family history of diabetes mellitus; Z88.8 Allergy status to other drugs, medicaments and biological substances
CPT/HCPCS: 36415; 70450; 70551; 71045; 71046; 71275; 80048; 80053; 82550; 82553; 82803; 82962; 83605; 83735; 83880; 84484; 85025; 85610; 85730; 87040; 93005; 93010; 93306; 93880; 94640; 94667; 94799; 96361; 96374; 99291; C9113; J0692; J1650; J1815; J3490; J7030; J7620

== ENCOUNTER → 2020-04-27 | Outpatient (CLI) | payer MEDICAID, MEDICARE ==
[2020-04-27 10:57] LABS: ANION GAP 11 (5-19); BLOOD UREA NITROGEN 44 mg/dL (7-20); CALCIUM 9.5 mg/dL (8.4-10.2); CARBON DIOXIDE 25 mmol/L (22-30); CHLORIDE 103 mmol/L (98-107); GLUCOSE 202 mg/dL (75-110); POTASSIUM 5.6 mmol/L (3.6-5.0)
== END ==
LOC: OD 08:58
PROVIDERS: ATTEND Family Medicine
DX: E87.5 Hyperkalemia (principal)
CPT/HCPCS: 36415; 80048

== ENCOUNTER → 2020-05-09 | Outpatient (CLI) | payer MEDICARE, MEDICAID ==
[2020-05-09 10:48] LABS: ANION GAP 10 (5-19); BLOOD UREA NITROGEN 44 mg/dL (7-20); CALCIUM 10.2 mg/dL (8.4-10.2); CARBON DIOXIDE 25 mmol/L (22-30); CHLORIDE 104 mmol/L (98-107); GLUCOSE 67 mg/dL (75-110); POTASSIUM 5.3 mmol/L (3.6-5.0)
== END ==
LOC: OD 09:14
PROVIDERS: ATTEND Physician Assistant
DX: E87.5 Hyperkalemia (principal)
CPT/HCPCS: 36415; 80048

== ENCOUNTER → 2020-05-10 | Outpatient (CLI) | payer MEDICARE, MEDICAID ==
--- NOTE | 2020-05-10 10:49 | RADIOLOGY REPORT (SQ) ---
EXAM DESCRIPTION: CT HEAD WITHOUT IMAGES COMPLETED DATE/TIME: 05/10/2020 10:39 am REASON FOR STUDY: R47.81 SLURRED SPEECH, R29.898 OTH SYMPTOMS AND SIGNS INVOLVING THE MUSCULO R47.81 SLURRED SPEECH R29.898 OTH SYMPTOMS AND SIGNS INVOLVING THE MUSCULOSKELETAL COMPARISON: 12/24/2019 TECHNIQUE: Axial images acquired through the brain without intravenous contrast. Images reviewed wi th bone, brain and subdural windows. Additional sagittal and coronal reconstructions were generated. Images stored on PACS. All CT scanners at this facility use dose modulation, iterative reconstruction, and/or weight based d osing when appropriate to reduce radiation dose to as low as reasonably achievable (ALARA). [facility]: Dose Right [facility]: CareDose [facility]: Dose Right [facility]: Teradose 4D [facility]: [employer] RADIATION DOSE: CT Rad equipment meets quality standard of care and radiation dose reduction techniq ues were employed. CTDIvol: 48.5 mGy. DLP: 879 mGy-cm. mGy. LIMITATIONS: None. FINDINGS: VENTRICLES: Normal size and contour. CEREBRUM: No masses. No hemorrhage. No midline shift. No evidence for acute infarction. Normal gra y/white matter differentiation. No areas of low density in the white matter. CEREBELLUM: No masses. No hemorrhage. No alteration of density. No evidence for acute infarction. EXTRAAXIAL SPACES: No fluid collections. No masses. ORBITS AND GLOBE: No intra- or extraconal masses. Normal contour of globe without masses. CALVARIUM: No fracture. PARANASAL SINUSES: No fluid or mucosal thickening. SOFT TISSUES: No mass or hematoma. OTHER: No other significant finding. IMPRESSION: NORMAL BRAIN CT WITHOUT CONTRAST. EVIDENCE OF ACUTE STROKE: NO. COMMENT: Quality ID # 436: Final reports with documentation of one or more dose reduction techniques (e.g., Automated exposure control, adjustment of the mA and/or kV according to patient size, use of iterative reconstruction technique) TECHNICAL DOCUMENTATION: JOB ID: [id number] 2010 [employer]- All Rights Reserved Reading location - IP/workstation name: [email or web address]
== END ==
LOC: RAD 10:33
PROVIDERS: ATTEND Physician Assistant
DX: R47.81 Slurred speech (principal); R29.898 Other symptoms and signs involving the musculoskeletal system
CPT/HCPCS: 70450

== ENCOUNTER → 2020-08-02 | Outpatient (CLI) | payer MEDICARE, MEDICAID ==
--- NOTE | 2020-08-02 12:47 | RADIOLOGY REPORT (SQ) ---
EXAM DESCRIPTION: CT CHEST WITHOUT IMAGES COMPLETED DATE/TIME: 08/02/2020 9:11 am REASON FOR STUDY: J44.9 CHRONIC OBSTRUCTIVE PULMONARY DISEASE, UNSPECIFIED J44.9 CHRONIC OBSTRUCTIV E PULMONARY DISEASE, UNSPECIFIED COMPARISON: 12/24/2019 TECHNIQUE: CT scan performed of the chest without intravenous contrast. Images reviewed with lung, soft tissue and bone windows. Reconstructed coronal and sagittal MPR images reviewed. All images st ored on PACS. All CT scanners at this facility use dose modulation, iterative reconstruction, and/or weight based d osing when appropriate to reduce radiation dose to as low as reasonably achievable (ALARA). [facility]: Dose Right [facility]: CareDose [facility]: Dose Right [facility]: Teradose 4D [facility]: [employer] RADIATION DOSE: CT Rad equipment meets quality standard of care and radiation dose reduction techniq ues were employed. CTDIvol: 14.4 mGy. DLP: 583 mGy-cm. mGy. LIMITATIONS: No technical limitations. FINDINGS: LUNGS AND PLEURA: Mild bronchiectasis bilaterally, predominantly in the lower lobes. Mild ground-glass opacification in the lower lobes. No pleural effusion. 2 cm masslike opacification at the right lateral pleural surface. See image 72 series 4. HILAR AND MEDIASTINAL STRUCTURES: There are small nonspecific mediastinal nodes that are subcentimete r in size. HEART AND VASCULAR STRUCTURES: No aneurysm or pericardial effusion. Significant coronary artery calc ifications. UPPER ABDOMEN: Hepatic hypo attenuation. No masses. THYROID AND OTHER SOFT TISSUES: No masses. No adenopathy. BONES: No significant finding. HARDWARE: None in the chest. OTHER: No other significant findings. IMPRESSION: 1. Chronic lung changes characterized by bilateral bronchiectasis in the lower lobes pr edominantly. Ground-glass opacification in the lower lobes. Ground-glass changes may suggest chroni c interstitial changes versus mild interstitial edema. 2. 2 cm pleural-based mass on the right. This may represent neoplasm. May represent pleural/parenc hymal scarring. Consider PET-CT. 3. Hepatic steatosis. TECHNICAL DOCUMENTATION: JOB ID: [id number] Quality ID # [id number]: Final reports with documentation of one or more dose reduction techniques (e.g., Au tomated exposure control, adjustment of the mA and/or kV according to patient size, use of iterative reconstruction technique) 2010 [employer]- All Rights Reserved Reading location - IP/workstation name: [email or web address]
== END ==
LOC: RAD 08:58
PROVIDERS: ATTEND Physician Assistant
DX: J44.9 Chronic obstructive pulmonary disease, unspecified (principal); R91.8 Other nonspecific abnormal finding of lung field; K76.0 Fatty (change of) liver, not elsewhere classified
CPT/HCPCS: 71250

== ENCOUNTER → 2020-08-09 | Outpatient (CLI) | payer MEDICARE, MEDICAID ==
--- NOTE | 2020-08-09 15:06 | RADIOLOGY REPORT (SQ) ---
EXAM DESCRIPTION: U/S RETROPERITON (RENAL/AORTA) IMAGES COMPLETED DATE/TIME: 08/09/2020 10:21 am REASON FOR STUDY: N18.3 CHRONIC KIDNEY DISEASE, STAGE 3 (MODERATE) N18.3 CHRONIC KIDNEY DISEASE, ST AGE 2 (MODERATE) COMPARISON: None. TECHNIQUE: Dynamic and static grayscale images acquired of the kidneys and bladder and recorded on P ACS. Additional selected color Doppler and spectral images recorded. LIMITATIONS: None. FINDINGS: RIGHT KIDNEY: Asymmetrically small measuring 10.4 cm. Normal echogenicity. No solid or ritu picious masses. 3.3 cm simple appearing cyst. No hydronephrosis. No calcifications. LEFT KIDNEY: Asymmetrically enlarged measuring 13.3 cm. Normal echogenicity. No solid or suspicious masses. Few cysts, largest measuring 2.2 cm maximally. No hydronephrosis. No calcifications. BLADDER: No masses. OTHER FINDINGS: No other significant finding. IMPRESSION: 1. No hydronephrosis. 2. Bilateral renal cysts, largest measuring 3.3 cm on the right. TECHNICAL DOCUMENTATION: JOB ID: [id number] 2010 [employer]- All Rights Reserved Reading location - IP/workstation name: [email or web address]
== END ==
LOC: RAD 09:03
PROVIDERS: ATTEND Physician Assistant Medical
DX: N18.3 Chronic kidney disease, stage 3 (moderate) (principal)
CPT/HCPCS: 76770

== ENCOUNTER → 2020-08-16 | Outpatient (CLI) | payer MEDICARE, MEDICAID ==
--- NOTE | 2020-08-18 13:38 | RADIOLOGY REPORT (SQ) ---
EXAM DESCRIPTION: PET CT SKULL/THIGH IMAGES COMPLETED DATE/TIME: 08/16/2020 7:27 pm REASON FOR STUDY: R91.1 SOLITARY PULMONARY NODULE R91.1 SOLITARY PULMONARY NODULE COMPARISON: Chest CT 08/02/2020. RADIONUCLIDE AND DOSE: 10.3 mCi F18 FDG The route of agent administration: Intravenous FASTING BLOOD SUGAR: 70 mg/dl CONTRAST TYPE AND DOSE: No CT contrast given. TECHNIQUE: Blood glucose level was verified. Above dose of FDG was injected intravenously. 2-D seg mented attenuation correction images were obtained from the base of the skull to the midthighs. Nonc ontrast CT images were obtained for attenuation correction and fusion with emission images. CT image s were performed without oral or intravenous contrast and are not sensitive for parenchymal lesions. A series of overlapping emission PET images were obtained. Images reviewed and manipulated at [facility] work station by the radiologist. Images stored on PACS. LIMITATIONS: None. FINDINGS: HEAD AND NECK: No areas of abnormal metabolic activity in the soft tissues of the head and neck. CHEST: Minimal uptake within the pleural based recently described part solid right lower lobe nodule 1.8 SUV. ABDOMEN AND PELVIS: No areas of abnormal metabolic activity in the abdomen or pelvis. Expected physi ologic activity is present in the genitourinary system and bowel. PROXIMAL LOWER EXTREMITIES: No areas of abnormal metabolic activity in the soft tissues of the lower extremities. BONES: No abnormal metabolic activity in the visualized skeleton. ADDITIONAL CT FINDINGS: No additional significant findings on the noncontrast CT images. OTHER: Blood pool 1.2 SUV. Liver background 1.6 SUV. IMPRESSION: Borderline significant uptake within the right lower lobe pulmonary nodule. COMMENT: Consider 6-[address] follow-up. TECHNICAL DOCUMENTATION: JOB ID: [id number] [employer]- All Rights Reserved Reading location - IP/workstation name: [email or web address]
== END ==
LOC: RAD 13:36
PROVIDERS: ATTEND Internal Medicine Pulmonary Disease
DX: R91.1 Solitary pulmonary nodule (principal)
CPT/HCPCS: 78815; A9552

== ENCOUNTER 2020-09-16 18:59 | Inpatient (IN) | payer MEDICARE, MEDICAID ==
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
--- NOTE | 2020-09-16 20:30 | RADIOLOGY REPORT (SQ) ---
EXAM DESCRIPTION: XR CHEST 2 VIEWS COMPLETED DATE/TME: 09/16/2020 19:52 CLINICAL HISTORY: 64 years, Male, Cough congestion bloody sputum petechiae COMPARISON: Chest x-ray 05/02/2020 TECHNIQUE: PA and lateral views. FINDINGS: Mild cardiomegaly. No suspicious mediastinal widening. Nonspecific chronic appearing interstitial changes in both lung bases greater on the right. No obvious acute findings in the chest.
[2020-09-16 21:21] LABS: INTERNATIONAL RATION (INR) 0.98; PROTHROMBIN TIME 13.2 SEC (11.4-15.4)
[2020-09-16 21:22] LABS: PARTIAL THROMBOPLASTIN TIME 28.4 SEC (23.5-35.8)
[2020-09-16 21:24] LABS: ALBUMIN 4.4 g/dL (3.5-5.0); ALKALINE PHOSPHATASE 92 U/L (38-126); ANION GAP 11 (5-19); ASPARTATE AMINO TRANSFERASE 30 U/L (17-59); BILIRUBIN,DIRECT 0.1 mg/dL (0.0-0.4); BILIRUBIN,TOTAL 0.5 mg/dL (0.2-1.3); BLOOD UREA NITROGEN 34 mg/dL (7-20); CALCIUM 9.9 mg/dL (8.4-10.2); CARBON DIOXIDE 26 mmol/L (22-30); CHLORIDE 103 mmol/L (98-107); GLUCOSE 81 mg/dL (75-110); POTASSIUM 3.9 mmol/L (3.6-5.0); TOTAL PROTEIN 7.7 g/dL (6.3-8.2)
[2020-09-16 21:30] LABS: APPEARANCE,URINE SLIGHTLY-CLOUDY; BILIRUBIN,URINE NEGATIVE (NEGATIVE); COLOR,URINE YELLOW; GLUCOSE, URINE NEGATIVE (NEGATIVE); KETONES,URINE NEGATIVE (NEGATIVE); LEUKOCYTE ESTERASE,URINE NEGATIVE (NEGATIVE); NITRITE,URINE NEGATIVE (NEGATIVE); PROTEIN,URINE 100 mg/dL (NEGATIVE); UROBILINOGEN,URINE NEGATIVE mg/dL (<2.0)
[2020-09-16 21:35] LABS: ABSOLUTE BASOPHILS # (AUTO) 0.1 10^3/uL (0.0-0.2); ABSOLUTE EOSINOPHILS # (AUTO) 0.2 10^3/uL (0.0-0.6); ABSOLUTE LYMPHOCYTES (AUTO) 2.5 10^3/uL (0.5-4.7); ABSOLUTE MONOCYTES (AUTO) 0.6 10^3/uL (0.1-1.4); ABSOLUTE NEUT (AUTO) 3.7 10^3/uL (1.7-8.2); BASOPHILS % (AUTO) 1.1 % (0-2); EOSINOPHILS % (AUTO) 3.1 % (0-6); HEMATOCRIT 40.4 % (37.9-51.0); HEMOGLOBIN 13.8 g/dL (13.5-17.0); LYMPHOCYTES % (AUTO) 35.2 % (13-45); MEAN CORPUSCULAR HEMOGLOBIN 26.9 pg (27.0-33.4); MEAN CORPUSCULAR HGB CONC 34.1 g/dL (32.0-36.0); MEAN CORPUSCULAR VOLUME 79 fl (80-97); MONOCYTES % (AUTO) 8.8 % (3-13); RED BLOOD COUNT 5.12 10^6/uL (4.35-5.55); RED CELL DISTRIBUTION WIDTH 14.3 % (11.5-14.0); SEGMENTED NEUTROPHILS % (AUTO) 51.8 % (42-78); TOTAL CELLS COUNTED % (AUTO) 100 %; WHITE BLOOD COUNT 7.1 10^3/uL (4.0-10.5)
[2020-09-16 21:48] LABS: PLATELET COUNT 8 10^3/uL (150-450)
[2020-09-16] MEDS ORDERED: NORMAL SALINE 250 ML IV PRN ×2 (22:44)
[2020-09-16] MEDS ORDERED: METHYLPREDNISOLONE INJ 125 MG/2 ML SDV IV ONE (22:45)
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
[2020-09-16] MEDS ORDERED: ACETAMINOPHEN 325 MG TABLET PO PRN (22:50)
[2020-09-16] MEDS ORDERED: IPRATROPIUM/ALBUTEROL 0.5-2.5 MG/3 ML AMPUL NEB PRN (22:50)
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
[2020-09-16] MEDS ORDERED: DEXTROSE 50%-WATER 25 GM/50 ML DISP.SYRIN IV PRN ×4 (22:54→22:55)
[2020-09-16] MEDS ORDERED: GLUCAGON,HUMAN RECOMB 1 MG INJ IM PRN ×2 (22:54→22:55)
[2020-09-16] MEDS ORDERED: DEXTROSE 40% GEL 15 GM TUBE PO PRN ×4 (22:54→22:55)
--- NOTE | 2020-09-16 23:41 | RADIOLOGY REPORT (SQ) ---
CT HEAD WITHOUT IV CONTRAST HISTORY: Severe thrombocytopenia. COMPARISON: 05/10/2020 TECHNIQUE: CT scan of the brain was performed without IV contrast. This exam was performed according to our departmental dose-optimization program, which includes automated exposure control, adjustment of the mA and/or kV according to patient size and/or use of iterative reconstruction technique. FINDINGS: The ventricles, cisterns, and sulci are age-appropriate. No evidence of acute infarction, intracranial hemorrhage, extra-axial fluid collection, or midline shift. No air-fluid levels are seen in the paranasal sinuses to suggest acute sinusitis. No depressed skull fracture. IMPRESSION: No acute intracranial findings.
[2020-09-16 23:46] LABS: ANION GAP 11 (5-19); BLOOD UREA NITROGEN 36 mg/dL (7-20); CALCIUM 9.5 mg/dL (8.4-10.2); CARBON DIOXIDE 26 mmol/L (22-30); CHLORIDE 104 mmol/L (98-107); GLUCOSE 75 mg/dL (75-110); POTASSIUM 3.8 mmol/L (3.6-5.0)
[2020-09-17 06:12] LABS: ABSOLUTE LYMPHOCYTES (AUTO) 0.9 10^3/uL (0.5-4.7); ABSOLUTE MONOCYTES (AUTO) 0.1 10^3/uL (0.1-1.4); ABSOLUTE NEUT (AUTO) 4.1 10^3/uL (1.7-8.2); BASOPHILS % (AUTO) 0.9 % (0-2); EOSINOPHILS % (AUTO) 0.6 % (0-6); HEMATOCRIT 39.4 % (37.9-51.0); HEMOGLOBIN 13.2 g/dL (13.5-17.0); LYMPHOCYTES % (AUTO) 17.2 % (13-45); MEAN CORPUSCULAR HEMOGLOBIN 26.9 pg (27.0-33.4); MEAN CORPUSCULAR HGB CONC 33.4 g/dL (32.0-36.0); MEAN CORPUSCULAR VOLUME 80 fl (80-97); MONOCYTES % (AUTO) 2.1 % (3-13); RED BLOOD COUNT 4.91 10^6/uL (4.35-5.55); RED CELL DISTRIBUTION WIDTH 14.2 % (11.5-14.0); SEGMENTED NEUTROPHILS % (AUTO) 79.2 % (42-78); TOTAL CELLS COUNTED % (AUTO) 100 %; WHITE BLOOD COUNT 5.1 10^3/uL (4.0-10.5)
[2020-09-17 06:24] LABS: PLATELET COUNT 5 10^3/uL (150-450)
[2020-09-17] MEDS: INSULIN LISPRO 100 UNIT/ML 3 ML VIAL SUBCUT SCH ×4 (08:13→21:55)
[2020-09-17] MEDS: PREDNISONE 10 MG TABLET PO SCH ×2 (09:22→17:08)
[2020-09-17] MEDS: PANTOPRAZOLE SODIUM 40 MG TABLET.DR PO SCH (09:22)
--- NOTE | 2020-09-17 09:55 | PDOC H&P ---
History of Present Illness Admission Date/PCP: 09/16/20 23:05 ZAIRE GEIGER MD Patient complains of: Skin rash History of Present Illness: TAHIR FOURNIER is a 64 year old male Is a 64-year-old male with a history of the type 2 diabetes chronic kidney disease coronary artery disease hypertension hyperlipidemia multiple other comorbidity including recently diagnosed with the pulmonary nodules waiting for the biopsy also patients waiting for the cardiac cath at [facility] before the biopsy came to the emergency department with the complaining of her skin rash in the abdominal area started suddenly for the last 24 hours and according to the patient he has this problem 10 years back when his platelet count was low and patient seen by the local equipment specialist at the times and could not find anything Patient's denied any chest pain no short of breath patient said he feels so good In the emergency department patient's platelet count was 8 in ER physician disc ussed with the hematology and suggested transfuse the platelet and give her steroids I saw the patient on the floor. platelet count is [address] was negative no active bleeding Patient otherwise currently doing well and according to the Dr. 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 and seems to continues to steroid and continues to monitor Past Medical History Cardiac Medical History: Reports: Coronary Artery Disease - CARDIAC STENTS X5, Hyperlipidema, Hypertension Denies: Atrial Fibrillation, Congestive Heart Failure, Myocardial Infarction, Peripheral Vascular Disease, Pulmonary Embolism Pulmonary Medical History: Reports: Asthma, Bronchitis, Chronic Obstructive Pulmonary Disease (COPD), Pneumonia, Sleep Apnea Denies: Respiratory Failure, Tuberculosis Neurological Medical History: Denies: Seizures Endocrine Medical History: Reports: Diabetes Mellitus Type 2 Denies: Hyperthyroidism, Hypothyroidism Renal/ Medical History: Reports: Chronic Kidney Disease Denies: End Stage Renal Disease Malignancy Medical History: Denies: Leukemia, Lung Cancer GI Medical History: Reports: Gastroesophageal Reflux Disease, Hiatal Hernia Denies: Crohn's Disease Musculoskeltal Medical History: Reports: Arthritis - bursitis left shoulder, kamar [place] bone spurs Denies: Fibromyalgia Psychiatric Medical History: Denies: Bipolar Disorder, Dementia, Depression, Post Traumatic Stress Disorder Hematology: Reports: Anemia Infectious Medical History: Denies: HIV Past Surgical History Past Surgical History: Reports: Cardiac Catheterization - 5 stents, Cholecystectomy, Coronary Stent - X5, Orthopedic Surgery - right leg, back surge ry, Tonsillectomy Denies: Appendectomy, Colostomy, Coronary Artery Bypass Graft, Gastric Bypass Surgery, Herniorrhaphy, Pacemaker Social History Information Source: Patient Smoking Status: Former Smoker Electronic Cigarette use?: No Last Time Smoked: 1992 Frequency of Alcohol Use: Occasional Hx Recreational Drug Use: No Drugs: None Hx Prescription Drug Abuse: No Family History Family History: Arthritis, CAD, CVA, DM, Hyperlipidemia, Hypertension, Malignancy Parental Family History Reviewed: Yes Children Family History Reviewed: Yes Sibling(s) Family History Reviewed.: Yes Medication/Allergy Home Medications: Amlodipine Besylate [Norvasc 10 mg Tablet] 10 mg PO DAILY 12/24/19 Atorvastatin Calcium [Lipitor 40 mg Tablet] 40 mg PO QHS 12/24/19 Budesonide [Pulmicort Neb 0.5 mg/2 ml Ampul] 1 vial NEB BID 12/24/19 Fluticasone/Umeclidin/Vilanter [Trelegy 100-62.5-25 Mcg Ellipta 14 Dose/Dpi] 1 puff IH DAILY 12/24/19 Levocetirizine Dihydrochloride [Xyzal] 5 mg PO DAILY 12/24/19 Meclizine HCl [Antivert 12.5 mg Tablet] 12.5 mg PO DAILY 12/24/19 Metoprolol Tartrate [Lopressor 25 mg Tablet] 25 mg PO Q12 12/24/19 Montelukast Sodium [Singulair 10 mg Tablet] 10 mg PO QPM 12/24/19 Omeprazole 40 mg PO DAILY 12/24/19 Tamsulosin HCl [Flomax 0.4 mg Cap.sr] 0.4 mg PO QPM 12/24/19 Bisacodyl [Dulcolax 5 mg Tablet] 15 mg PO DAILYP PRN #30 tabec 01/01/20 Cefuroxime Axetil [Ceftin 500 mg Tablet] 1 tab PO BID #14 tablet 01/01/20 Furosemide [Lasix 40 mg Tablet] 20 mg PO DAILY #30 01/01/20 Guaifenesin [Robitussin Syrup 200 mg/10 ml Ud Cup] 200 mg PO Q4HP PRN #120 udc 01/01/20 Hydralazine HCl [Apresoline 25 mg Tablet] 50 mg PO Q8 #90 tablet 01/01/20 Insulin Glargine,Hum.rec.anlog [Lantus Insulin 100 Unit/1 ml 10 ml] 30 unit SUBCUT Q12 #60 unit 01/01/20 Insulin Lispro [Humalog Insulin (Lispro) 100 unit/mL] 0 - 12 unit SUBCUT ACHS #1 unit 01/01/20 Ipratropium/Albuterol Sulfate [Duoneb 3 ml Ampul] 3 ml NEB RTQ8 #120 vial.neb 01/01/20 Lidocaine [Lidoderm 5% (700 mg) Transdermal Patch] 1 patch TP QPM #30 adh..patch 01/01/20 Polyethylene Glycol 3350 [Miralax Powder 17 gm/Packet] 17 gm PO DAILY #30 powd.pack 01/01/20 Tramadol HCl [Ultram 50 mg Tablet] 50 mg PO Q6HP PRN #30 tablet 01/01/20 Allergies/Adverse Reactions: clopidogrel bisulfate [From Plavix] Adverse Reaction (Severe, Verified 06/19/19 21:02) bleeding from ear/NOSE Review of Systems Constitutional: ABSENT: chills, fever(s), headache(s), weight gain, weight loss Eyes: ABSENT: visual disturbances Ears: ABSENT: hearing changes Cardiovascular: ABSENT: chest pain, dyspnea on exertion, edema, orthropnea, palpitations Respiratory: ABSENT: cough, hemoptysis Gastrointestinal: ABSENT: abdominal pain, constipation, diarrhea, hematemesis, hematochezia, nausea, vomiting Genitourinary: ABSENT: dysuria, hematuria Musculoskeletal: ABSENT: joint swelling Integumentary: ABSENT: rash, wounds Neurological: ABSENT: abnormal gait, abnormal speech, confusion, dizziness, focal weakness, syncope Psychiatric: ABSENT: anxiety, depression, homidical ideation, suicidal ideation Endocrine: ABSENT: cold intolerance, heat intolerance, menstrual abnormalities, polydipsia, polyuria Hematologic/Lymphatic: ABSENT: easy bleeding, easy bruising, lymphadenopathy Physical Exam Vital Signs: Temp Pulse Resp BP Pulse Ox 97.8 F 84 20 144/72 H 99 09/17/20 07:42 09/17/20 07:42 09/17/20 07:42 09/17/20 07:42 09/17/20 07:42 Intake & Output 09/16/20 09/17/20 09/18/20 06:59 06:59 06:59 Intake Total 223 Balance 223 Weight 89.7 kg General appearance: PRESENT: no acute distress, well-developed, well-nourished Head exam: PRESENT: atraumatic, normocephalic Eye exam: PRESENT: conjunctiva pink, EOMI, PERRLA. ABSENT: scleral icterus Ear exam: PRESENT: normal external ear exam Mouth exam: PRESENT: moist, tongue midline Neck exam: PRESENT: full ROM. ABSENT: carotid bruit, JVD, lymphadenopathy, thyromegaly Respiratory exam: PRESENT: clear to auscultation raya Cardiovascular exam: PRESENT: RRR. ABSENT: diastolic murmur, rubs, systolic murmur Pulses: PRESENT: normal dorsalis pedis pul, +2 pedal pulses bilateral Vascular exam: PRESENT: normal capillary refill GI/Abdominal exam: PRESENT: normal bowel sounds, soft. ABSENT: distended, guarding, mass, organolmegaly, rebound, tenderness Rectal exam: PRESENT: deferred Neurological exam: PRESENT: alert, awake, oriented to person, oriented to place, oriented to time, oriented to situation, CN II-XII grossly intact. ABSENT: motor sensory deficit Psychiatric exam: PRESENT: appropriate affect, normal mood. ABSENT: homicidal ideation, suicidal ideation Skin exam: PRESENT: dry, intact, rash, warm. ABSENT: cyanosis Additional comments: petechia a rash on abdominal area Results Laboratory Results: 09/17/20 05:00 09/16/20 23:10 09/16/20 09/16/20 09/16/20 20:50 20:50 20:50 WBC 7.1 RBC 5.12 Hgb 13.8 Hct 40.4 MCV 79 L MCH 26.9 L MCHC 34.1 RDW 14.3 H Plt Count 8 L* Seg Neutrophils % 51.8 Sodium 140.2 Potassium 3.9 Chloride 103 Carbon Dioxide 26 Anion Gap 11 BUN 34 H Creatinine 1.70 H Est GFR ( Amer) 49 L Glucose 81 Calcium 9.9 Total Bilirubin 0.5 AST 30 Alkaline Phosphatase 92 Total Protein 7.7 Albumin 4.4 Urine Color Urine Appearance Urine pH Ur Specific [place] Urine Protein Urine Glucose (UA) Urine Ketones Urine Blood Urine Nitrite Ur Leukocyte Esterase Urine WBC (Auto) Urine RBC (Auto) Blood Type O NEGATIVE Antibody Screen NEGATIVE 09/16/20 09/16/20 09/17/20 21:10 23:10 05:00 WBC 5.1 RBC 4.91 Hgb 13.2 L Hct 39.4 MCV 80 MCH 26.9 L MCHC 33.4 RDW 14.2 H Plt Count 5 L* Seg Neutrophils % 79.2 H Sodium 140.9 Potassium 3.8 Chloride 104 Carbon Dioxide 26 Anion Gap 11 BUN 36 H Creatinine 1.59 H Est GFR ( Amer) 53 L Glucose 75 Calcium 9.5 Total Bilirubin AST Alkaline Phosphatase Total Protein Albumin Urine Color YELLOW Urine Appearance SLIGHTLY-CLOUDY Urine pH 5.0 Ur Specific [place] 1.020 Urine Protein 100 H Urine Glucose (UA) NEGATIVE Urine Ketones NEGATIVE Urine Blood MODERATE H Urine Nitrite NEGATIVE Ur Leukocyte Esterase NEGATIVE Urine WBC (Auto) 1 Urine RBC (Auto) 10 Blood Type Antibody Screen Impressions: Head CT 09/16/20 22:42 IMPRESSION: No acute intracranial findings. Assessment & Plan - Diagnosis (1) Severe thrombocytopenia Is this a current diagnosis for this admission?: Yes Plan: As per discussed with Dr. 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 helper insulin use status Diabetes mellitus complication status: without complication Qualified Code(s): E11.9 - Type 2 diabetes mellitus without complications Is this a current diagnosis for this admission?: Yes Plan: Continue sliding scales (3) Acute kidney failure Qualifiers: Acute renal failure type: unspecified Qualified Code(s): N17.9 - Acute kidney failure, unspecified Is this a current diagnosis for this admission?: Yes Plan: Continues IV fluid (4) COPD (chronic obstructive pulmonary disease) Qualifiers: COPD type: chronic bronchitis Is this a current diagnosis for this admission?: Yes Plan: Patient nebulizer treatments (5) Coronary artery disease Qualifiers: Coronary Disease-Associated Artery/Lesion type: [place] artery Associated angina: without angina Is this a current diagnosis for this admission?: Yes Plan: Currently denied any complaints patient also see Dr. Victor at [place] (6) Hyperlipidemia Qualifiers: Hyperlipidemia type: unspecified Qualified Code(s): E78.5 - Hyperlipidemia, unspecified Is this a current diagnosis for this admission?: Yes (7) Sleep apnea syndrome Qualifiers: Sleep apnea type: unspecified type Is this a current diagnosis for this admission?: Yes Plan: Continues to use a CPAP - Time Time Spent: 30 to 50 Minutes Medications reviewed and adjusted accordingly: Yes Anticipated Discharge Disposition: Home, Self Care Anticipated Discharge Timeframe: within 72 hours - Inpatient Certification Based on my medical assessment, after consideration of the patient's comorbidit ies, presenting symptoms, or acuity I expect that the services needed warrant INPATIENT care.: Yes I certify that my determination is in accordance with my understanding of Me jos's requirements for reasonable and necessary INPATIENT services [42 CFR 412.3e].: Yes Medical Necessity: Significant Comorbidiites Make Outpatient Treatment Too Risky, Need For IV Fluids Post Hospital Care: D/C Pin Attacher Documentation - Plan Summary Plan Summary: Continues to follow-up with the equipment specialist currently all stable discussed with the regarding the patient's current conditions discussed with the patient all the plans
--- NOTE | 2020-09-17 10:15 | PDOC CONSULTATION ---
Consultation Consult Date: 09/17/20 Provider Consulted: LYNN GRANT Consult reason:: Hematology/Oncology consultation was requested for patient with thrombocytopenia History of Present Illness Admission Date/PCP: 09/16/20 23:05 ZAIRE GILES MD History of Present Illness: TAHIR FOURNIER is a 64 year old male who has seen Dr. Lira in the past. He was found to have a lung nodule and biopsy has been ordered. However, while undergoing cardiac clearance for the procedure, he state that he was started on a new device to "vibrate" his chest and after using this, developed petechei over his trunk. He states that many years ago, he was treated for a hemolytic low blood count and was given multiple transfusions, and he was told that he may get this again. Today, he state that he is feeling fine. He still has a cough for which he had been taking tesalon perls but otherwise, has no complaint. Mild hemoptysis with his cough, but no other evidence of bleeding. No recent fevers, infec tions, or antibiotics. Past Medical History Cardiac Medical History: Reports: Coronary Artery Disease - CARDIAC STENTS X5, Hyperlipidema, Hypertension Denies: Atrial Fibrillation, Congestive Heart Failure, Myocardial Infarction, Peripheral Vascular Disease, Pulmonary Embolism Pulmonary Medical History: Reports: Asthma, Bronchitis, Chronic Obstructive Pulmonary Disease (COPD), Pneumonia, Sleep Apnea Denies: Respiratory Failure, Tuberculosis Neurological Medical History: Denies: Seizures Endocrine Medical History: Reports: Diabetes Mellitus Type 1, Diabetes Mellitus Type 2 Denies: Hyperthyroidism, Hypothyroidism Renal/ Medical History: Reports: Chronic Kidney Disease Denies: End Stage Renal Disease Malignancy Medical History: Denies: Leukemia, Lung Cancer GI Medical History: Reports: Gastroesophageal Reflux Disease, Hiatal Hernia Denies: Crohn's Disease Musculoskeltal Medical History: Reports: Arthritis - bursitis left shoulder, back bone spurs Denies: Fibromyalgia Psychiatric Medical History: Denies: Bipolar Disorder, Dementia, Depression, Post Traumatic Stress Disorder Hematology: Reports: Anemia Infectious Medical History: Denies: HIV Past Surgical History Past Surgical History: Reports: Cardiac Catheterization - 5 stents, Cholec ystectomy, Coronary Stent - X5, Orthopedic Surgery - right leg, back surgery, Tonsillectomy Denies: Appendectomy, Colostomy, Coronary Artery Bypass Graft, Gastric Bypass Surgery, Herniorrhaphy, Pacemaker Social History Information Source: Patient Lives with: Spouse/Significant other Smoking Status: Former Smoker Electronic Cigarette use?: No Last Time Smoked: 1992 Frequency of Alcohol Use: Occasional Hx Recreational Drug Use: No Drugs: None Hx Prescription Drug Abuse: No Past Social History Note: 4 children, 16 grandchildren, 2 dogs. 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 Father had prostate cancer Children Family History Reviewed: Yes Sibling(s) Family History Reviewed.: Yes - 4 Bros 2 Sis One brother with unknown cancer Medication/Allergy Home Medications: Amlodipine Besylate [Norvasc 10 mg Tablet] 10 mg PO DAILY 12/24/19 Atorvastatin Calcium [Lipitor 40 mg Tablet] 40 mg PO QHS 12/24/19 Budesonide [Pulmicort Neb 0.5 mg/2 ml Ampul] 1 vial NEB BID 12/24/19 Fluticasone/Umeclidin/Vilanter [Trelegy 100-62.5-25 Mcg Ellipta 14 Dose/Dpi] 1 puff IH DAILY 12/24/19 Levocetirizine Dihydrochloride [Xyzal] 5 mg PO DAILY 12/24/19 Meclizine HCl [Antivert 12.5 mg Tablet] 12.5 mg PO DAILY 12/24/19 Metoprolol Tartrate [Lopressor 25 mg Tablet] 25 mg PO Q12 12/24/19 Montelukast Sodium [Singulair 10 mg Tablet] 10 mg PO QPM 12/24/19 Omeprazole 40 mg PO DAILY 12/24/19 Tamsulosin HCl [Flomax 0.4 mg Cap.sr] 0.4 mg PO QPM 12/24/19 Bisacodyl [Dulcolax 5 mg Tablet] 15 mg PO DAILYP PRN #30 tabec 01/01/20 Cefuroxime Axetil [Ceftin 500 mg Tablet] 1 tab PO BID #14 tablet 01/01/20 Furosemide [Lasix 40 mg Tablet] 20 mg PO DAILY #30 01/01/20 Guaifenesin [Robitussin Syrup 200 mg/10 ml Ud Cup] 200 mg PO Q4HP PRN #120 udc 01/01/20 Hydralazine HCl [Apresoline 25 mg Tablet] 50 mg PO Q8 #90 tablet 01/01/20 Insulin Glargine,Hum.rec.anlog [Lantus Insulin 100 Unit/1 ml 10 ml] 30 unit SUBCUT Q12 #60 unit 01/01/20 Insulin Lispro [Humalog Insulin (Lispro) 100 unit/mL] 0 - 12 unit SUBCUT ACHS #1 unit 01/01/20 Ipratropium/Albuterol Sulfate [Duoneb 3 ml Ampul] 3 ml NEB RTQ8 #120 vial.neb 01/01/20 Lidocaine [Lidoderm 5% (700 mg) Transdermal Patch] 1 patch TP QPM #30 adh..patch 01/01/20 Polyethylene Glycol 3350 [Miralax Powder 17 gm/Packet] 17 gm PO DAILY #30 powd.pack 01/01/20 Tramadol HCl [Ultram 50 mg Tablet] 50 mg PO Q6HP PRN #30 tablet 01/01/20 Allergies/Adverse Reactions: clopidogrel bisulfate [From Plavix] Adverse Reaction (Severe, Verified 06/19/19 21:02) bleeding from ear/NOSE Review of Systems Constitutional: ABSENT: fever(s), headache(s) Eyes: ABSENT: visual disturbances Ears: ABSENT: hearing changes Nose, Mouth, and Throat: PRESENT: other - mild gum bleeding. ABSENT: sore throat Cardiovascular: ABSENT: chest pain Respiratory: PRESENT: cough, hemoptysis Gastrointestinal: ABSENT: constipation, hematemesis, hematochezia, nausea Genitourinary: ABSENT: dysuria, hematuria Musculoskeletal: ABSENT: muscle weakness Integumentary: PRESENT: as per HPI Neurological: ABSENT: confusion, weakness Hematologic/Lymphatic: PRESENT: as per HPI Physical Exam Vital Signs: Temp Pulse Resp BP Pulse Ox 97.8 F 84 20 144/72 H 99 09/17/20 07:42 09/17/20 07:42 09/17/20 07:42 09/17/20 07:42 09/17/20 07:42 Intake & Output 09/16/20 09/17/20 09/18/20 06:59 06:59 06:59 Intake Total 223 Balance 223 Weight 89.7 kg General appearance: PRESENT: no acute distress, well-developed, well-nourished Exam: 64 year old male Head exam: PRESENT: atraumatic, normocephalic Eye exam: PRESENT: EOMI, PERRLA Mouth exam: PRESENT: moist, tongue midline Neck exam: ABSENT: lymphadenopathy, tenderness Respiratory exam: PRESENT: crackles Cardiovascular exam: PRESENT: RRR GI/Abdominal exam: PRESENT: soft. ABSENT: tenderness Extremities exam: ABSENT: pedal edema Musculoskeletal exam: PRESENT: ambulatory Neurological exam: PRESENT: alert, awake, oriented to person, oriented to place, oriented to time, oriented to situation Psychiatric exam: PRESENT: appropriate affect Skin exam: PRESENT: petechiae Results Laboratory Results: 09/17/20 05:00 09/16/20 23:10 09/16/20 09/16/20 09/16/20 20:50 20:50 20:50 WBC 7.1 RBC 5.12 Hgb 13.8 Hct 40.4 MCV 79 L MCH 26.9 L MCHC 34.1 RDW 14.3 H Plt Count 8 L* Seg Neutrophils % 51.8 Sodium 140.2 Potassium 3.9 Chloride 103 Carbon Dioxide 26 Anion Gap 11 BUN 34 H Creatinine 1.70 H Est GFR ( Amer) 49 L Glucose 81 Calcium 9.9 Total Bilirubin 0.5 AST 30 Alkaline Phosphatase 92 Total Protein 7.7 Albumin 4.4 Urine Color Urine Appearance Urine pH Ur Specific [place] Urine Protein Urine Glucose (UA) Urine Ketones Urine Blood Urine Nitrite Ur Leukocyte Esterase Urine WBC (Auto) Urine RBC (Auto) Blood Type O NEGATIVE Antibody Screen NEGATIVE 09/16/20 09/16/20 09/17/20 21:10 23:10 05:00 WBC 5.1 RBC 4.91 Hgb 13.2 L Hct 39.4 MCV 80 MCH 26.9 L MCHC 33.4 RDW 14.2 H Plt Count 5 L* Seg Neutrophils % 79.2 H Sodium 140.9 Potassium 3.8 Chloride 104 Carbon Dioxide 26 Anion Gap 11 BUN 36 H Creatinine 1.59 H Est GFR ( Amer) 53 L Glucose 75 Calcium 9.5 Total Bilirubin AST Alkaline Phosphatase Total Protein Albumin Urine Color YELLOW Urine Appearance SLIGHTLY-CLOUDY Urine pH 5.0 Ur Specific [place] 1.020 Urine Protein 100 H Urine Glucose (UA) NEGATIVE Urine Ketones NEGATIVE Urine Blood MODERATE H Urine Nitrite NEGATIVE Ur Leukocyte Esterase NEGATIVE Urine WBC (Auto) 1 Urine RBC (Auto) 10 Blood Type Antibody Screen I reviewed the peripheral blood smear. There was no evidence of schistocytosis. This is consistent with ITP. Impressions: Head CT 09/16/20 22:42 IMPRESSION: No acute intracranial findings. Status: Image reviewed by me Assessment & Plan - Diagnosis (1) Acute ITP Is this a current diagnosis for this admission?: Yes Plan: I do not believe further transfusions will be of benefit unless there is active bleeding. He has been started on prednisone 1 mg/kg/day divided, BID. He has also been started on PPI. If no significant improvement, consider either Rituxan or a newer agent like Doptelet. He will continue bleeding precautions. (2) Lung nodule Is this a current diagnosis for this admission?: Yes Plan: Although biopsy is planned, this will be held until PLT are safely above 50. Further cardiac work-up as well after platelet count has improved. - Plan Summary Plan Summary: Patient was discussed with Dr. Giles. Please call with any questions or concerns.
[2020-09-17] MEDS ORDERED: NITROGLYCERIN 0.4 MG/TAB 25 TAB/BOTTLE SL PRN (15:40)
[2020-09-17] MEDS: TAMSULOSIN HCL 0.4 MG CAP.SR.24H PO SCH (17:08)
[2020-09-17] MEDS: TRAMADOL HCL 50 MG TABLET PO SCH ×2 (17:08→21:55)
[2020-09-17] MEDS: BENZONATATE 100 MG CAPSULE PO PRN (17:09)
[2020-09-17] MEDS: MONTELUKAST SODIUM 10 MG TABLET PO SCH (17:09)
[2020-09-17] MEDS ORDERED: INSULIN GLARGINE,HUM.REC.ANLOG 1,000 UNIT/10 ML VIAL (PYX) SUBCUT ONE (21:51)
[2020-09-17] MEDS: ATORVASTATIN CALCIUM 40 MG TABLET PO SCH (21:55)
[2020-09-17] MEDS: METOPROLOL TARTRATE 25 MG TABLET PO SCH (21:55)
[2020-09-17] MEDS ORDERED: INSULIN GLARGINE,HUM.REC.ANLOG 1,000 UNIT/10 ML VIAL SUBCUT SCH ×2 (22:00)
[2020-09-18 04:56] LABS: ABSOLUTE LYMPHOCYTES (AUTO) 1.1 10^3/uL (0.5-4.7); ABSOLUTE MONOCYTES (AUTO) 0.4 10^3/uL (0.1-1.4); ABSOLUTE NEUT (AUTO) 6.8 10^3/uL (1.7-8.2); BASOPHILS % (AUTO) 0.2 % (0-2); HEMATOCRIT 37.4 % (37.9-51.0); HEMOGLOBIN 12.7 g/dL (13.5-17.0); LYMPHOCYTES % (AUTO) 13.4 % (13-45); MEAN CORPUSCULAR HEMOGLOBIN 26.8 pg (27.0-33.4); MEAN CORPUSCULAR HGB CONC 33.9 g/dL (32.0-36.0); MEAN CORPUSCULAR VOLUME 79 fl (80-97); MONOCYTES % (AUTO) 5.3 % (3-13); RED BLOOD COUNT 4.74 10^6/uL (4.35-5.55); RED CELL DISTRIBUTION WIDTH 14.2 % (11.5-14.0); SEGMENTED NEUTROPHILS % (AUTO) 81.1 % (42-78); TOTAL CELLS COUNTED % (AUTO) 100 %; WHITE BLOOD COUNT 8.4 10^3/uL (4.0-10.5)
[2020-09-18 05:31] LABS: PLATELET COUNT 5 10^3/uL (150-450)
[2020-09-18] MEDS: PANTOPRAZOLE SODIUM 40 MG TABLET.DR PO SCH (08:12)
[2020-09-18] MEDS: INSULIN LISPRO 100 UNIT/ML 3 ML VIAL SUBCUT SCH ×4 (08:12→21:36)
[2020-09-18 09:30] LABS: ANION GAP 11 (5-19); BLOOD UREA NITROGEN 42 mg/dL (7-20); CALCIUM 9.5 mg/dL (8.4-10.2); CARBON DIOXIDE 24 mmol/L (22-30); CHLORIDE 99 mmol/L (98-107); POTASSIUM 4.9 mmol/L (3.6-5.0)
[2020-09-18 09:40] LABS: GLUCOSE 427 mg/dL (75-110)
--- NOTE | 2020-09-18 09:46 | PDOC PROGRESS REPORT ---
Subjective Progress Note for:: 09/18/20 Subjective:: Patient is currently doing fair Patient's platelet count is still 5 Patient is currently n.p.o. prednisone twice a day Patient is present due to the steroid Patient's denied any chest pain or shortness of Reason For Visit: THROBOCYTOPRNIA Physical Exam Vital Signs: Temp Pulse Resp BP Pulse Ox 98.4 F 63 13 157/70 H 99 09/18/20 09:18 09/18/20 07:56 09/18/20 07:56 09/18/20 07:56 09/18/20 07:56 Intake & Output 09/17/20 09/18/20 09/19/20 06:59 06:59 06:59 Intake Total 223 1555 Balance 223 1555 Weight 89.7 kg 89.4 kg General appearance: PRESENT: no acute distress, well-developed, well-nourished Head exam: PRESENT: atraumatic, normocephalic Eye exam: PRESENT: conjunctiva pink, EOMI, PERRLA. ABSENT: scleral icterus Ear exam: PRESENT: normal external ear exam Mouth exam: PRESENT: moist, tongue midline Neck exam: PRESENT: full ROM. ABSENT: carotid bruit, JVD, lymphadenopathy, thyromegaly Respiratory exam: PRESENT: clear to auscultation raya Cardiovascular exam: PRESENT: RRR. ABSENT: diastolic murmur, rubs, systolic murmur Pulses: PRESENT: normal dorsalis pedis pul, +2 pedal pulses bilateral Vascular exam: PRESENT: normal capillary refill GI/Abdominal exam: PRESENT: normal bowel sounds, soft. ABSENT: distended, guarding, mass, organolmegaly, rebound, tenderness Rectal exam: PRESENT: deferred Musculoskeletal exam: PRESENT: ambulatory Neurological exam: PRESENT: alert, awake, oriented to person, oriented to place, oriented to time, oriented to situation, CN II-XII grossly intact. ABSENT: motor sensory deficit Psychiatric exam: PRESENT: appropriate affect, normal mood. ABSENT: homicidal ideation, suicidal ideation Skin exam: PRESENT: dry, intact, warm. ABSENT: cyanosis, rash Results Laboratory Results: 09/18/20 04:30 09/18/20 04:30 09/18/20 09/18/20 04:30 04:30 WBC 8.4 RBC 4.74 Hgb 12.7 L Hct 37.4 L MCV 79 L MCH 26.8 L MCHC 33.9 RDW 14.2 H Plt Count 5 L* Seg Neutrophils % 81.1 H Sodium 133.8 L Potassium 4.9 Chloride 99 Carbon Dioxide 24 Anion Gap 11 BUN 42 H Creatinine 1.32 H Est GFR ( Amer) > 60 Glucose 427 H* Calcium 9.5 Impressions: Head CT 09/16/20 22:42 IMPRESSION: No acute intracranial findings. Assessment & Plan - Diagnosis (1) Severe thrombocytopenia Is this a current diagnosis for this admission?: Yes (2) Type 2 diabetes mellitus Qualifiers: Diabetes mellitus care home insulin use: unspecified household manager insulin use status Diabetes mellitus complication status: without complication Qualified Code(s): E11.9 - Type 2 diabetes mellitus without complications Is this a current diagnosis for this admission?: Yes (3) Acute kidney failure Qualifiers: Acute renal failure type: unspecified Qualified Code(s): N17.9 - Acute kidney failure, unspecified Is this a current diagnosis for this admission?: Yes (4) COPD (chronic obstructive pulmonary disease) Qualifiers: COPD type: chronic bronchitis Is this a current diagnosis for this admission?: Yes (5) Coronary artery disease Qualifiers: Coronary Disease-Associated Artery/Lesion type: [place] artery Associated angina: without angina Is this a current diagnosis for this admission?: Yes (6) Hyperlipidemia Qualifiers: Hyperlipidemia type: unspecified Qualified Code(s): E78.5 - Hyperlipidemia, unspecified Is this a current diagnosis for this admission?: Yes (7) Sleep apnea syndrome Qualifiers: Sleep apnea type: unspecified type Is this a current diagnosis for this admission?: Yes - Time Time Spent with patient: 15-24 minutes Level of Care: IMCU Medications reviewed and adjusted accordingly: Yes Anticipated discharge: Home Anticipated DC Timeframe: Other - Plan Summary Plan Summary: Continues to current medications Adjust the insulin
[2020-09-18] MEDS ORDERED: (PENDING PHARMACY ID) (Tiotropium Br/Olodaterol Hcl [Stiolto Respimat Inhal Spray] 2 PUFF) IH SCH (10:00)
[2020-09-18] MEDS ORDERED: INSULIN GLARGINE,HUM.REC.ANLOG 1,000 UNIT/10 ML VIAL (PYX) SUBCUT ONE (10:00)
[2020-09-18] MEDS: CETIRIZINE 5 MG TABLET PO SCH (10:55)
[2020-09-18] MEDS: FENOFIBRATE NANOCRYSTALLIZED 145 MG TABLET PO SCH (10:55)
[2020-09-18] MEDS: AMLODIPINE BESYLATE 10 MG TABLET PO SCH (10:55)
[2020-09-18] MEDS: PREDNISONE 10 MG TABLET PO SCH ×2 (10:55→17:10)
[2020-09-18] MEDS: METOPROLOL TARTRATE 25 MG TABLET PO SCH ×2 (10:56→21:36)
[2020-09-18] MEDS: TRAMADOL HCL 50 MG TABLET PO SCH ×4 (10:56→21:36)
[2020-09-18] MEDS: FLUTICASONE/UMECLIDIN/VILANTER 100-62.5-25 MCG/DOSE IH SCH (11:10)
[2020-09-18] MEDS ORDERED: INSULIN LISPRO 100 UNIT/ML 3 ML VIAL SUBCUT ONE (12:45)
--- NOTE | 2020-09-18 14:13 | PDOC PROGRESS REPORT ---
Subjective Progress Note for:: 09/18/20 Subjective:: Patient states that he is still feeling fine. No complaints. No active bleeding. He had a good BM today without difficulty. He has not been out walking in the [place], but is strong enough to do so. Reason For Visit: THROBOCYTOPRNIA Physical Exam Vital Signs: Temp Pulse Resp BP Pulse Ox 97.4 F 58 L 15 148/69 H 100 09/18/20 11:31 09/18/20 11:31 09/18/20 11:31 09/18/20 11:31 09/18/20 11:31 Intake & Output 09/17/20 09/18/20 09/19/20 06:59 06:59 06:59 Intake Total 223 1555 Balance 223 1555 Weight 89.7 kg 89.4 kg General appearance: PRESENT: no acute distress, well-developed Head exam: PRESENT: normocephalic Eye exam: PRESENT: EOMI Respiratory exam: PRESENT: unlabored Extremities exam: ABSENT: pedal edema Neurological exam: PRESENT: alert, awake Psychiatric exam: PRESENT: appropriate affect Skin exam: PRESENT: normal color Results Laboratory Results: 09/18/20 04:30 09/18/20 04:30 09/18/20 09/18/20 04:30 04:30 WBC 8.4 RBC 4.74 Hgb 12.7 L Hct 37.4 L MCV 79 L MCH 26.8 L MCHC 33.9 RDW 14.2 H Plt Count 5 L* Seg Neutrophils % 81.1 H Sodium 133.8 L Potassium 4.9 Chloride 99 Carbon Dioxide 24 Anion Gap 11 BUN 42 H Creatinine 1.32 H Est GFR ( Amer) > 60 Glucose 427 H* Calcium 9.5 Impressions: Head CT 09/16/20 22:42 IMPRESSION: No acute intracranial findings. Assessment & Plan - Diagnosis (1) Acute ITP Is this a current diagnosis for this admission?: Yes Plan: Continue prednisone for now. If no response, consider Rituxan or doptelet. (2) Lung nodule Is this a current diagnosis for this admission?: Yes Plan: Biopsy on hold until PLT count recovers. (3) Type 2 diabetes mellitus Qualifiers: Diabetes mellitus custodial insulin use: unspecified custodial insulin use status Diabetes mellitus complication status: without complication Qualified Code(s): E11.9 - Type 2 diabetes mellitus without complications Is this a current diagnosis for this admission?: Yes Plan: Steroids causing Glu to elevate. SSI has been started. - Time Time Spent with patient: Less than 15 minutes
[2020-09-18] MEDS: MONTELUKAST SODIUM 10 MG TABLET PO SCH (17:10)
[2020-09-18] MEDS: TAMSULOSIN HCL 0.4 MG CAP.SR.24H PO SCH (17:10)
[2020-09-18] MEDS: ATORVASTATIN CALCIUM 40 MG TABLET PO SCH (21:36)
[2020-09-18] MEDS ORDERED: INSULIN GLARGINE,HUM.REC.ANLOG 1,000 UNIT/10 ML VIAL SUBCUT SCH (22:00)
[2020-09-19] MEDS: NORMAL SALINE 1000 ML 1,000 ML IV PRN ×2 (03:22→20:47)
[2020-09-19] MEDS: BENZONATATE 100 MG CAPSULE PO PRN (03:22)
[2020-09-19 06:36] LABS: ABSOLUTE LYMPHOCYTES (AUTO) 1.1 10^3/uL (0.5-4.7); ABSOLUTE MONOCYTES (AUTO) 0.4 10^3/uL (0.1-1.4); ABSOLUTE NEUT (AUTO) 6.8 10^3/uL (1.7-8.2); BASOPHILS % (AUTO) 0.1 % (0-2); HEMATOCRIT 38.4 % (37.9-51.0); HEMOGLOBIN 13.1 g/dL (13.5-17.0); LYMPHOCYTES % (AUTO) 13.6 % (13-45); MEAN CORPUSCULAR HEMOGLOBIN 27.1 pg (27.0-33.4); MEAN CORPUSCULAR HGB CONC 34.1 g/dL (32.0-36.0); MEAN CORPUSCULAR VOLUME 80 fl (80-97); MONOCYTES % (AUTO) 4.4 % (3-13); RED BLOOD COUNT 4.83 10^6/uL (4.35-5.55); RED CELL DISTRIBUTION WIDTH 13.8 % (11.5-14.0); SEGMENTED NEUTROPHILS % (AUTO) 81.9 % (42-78); TOTAL CELLS COUNTED % (AUTO) 100 %; WHITE BLOOD COUNT 8.3 10^3/uL (4.0-10.5)
[2020-09-19 07:24] LABS: PLATELET COUNT 12 10^3/uL (150-450)
[2020-09-19] MEDS ORDERED: INSULIN GLARGINE,HUM.REC.ANLOG 1,000 UNIT/10 ML VIAL SUBCUT SCH ×2 (08:00→10:00)
--- NOTE | 2020-09-19 08:09 | PDOC PROGRESS REPORT ---
Subjective Progress Note for:: 09/19/20 Subjective:: No acute events overnight Reason For Visit: THROBOCYTOPRNIA Physical Exam Vital Signs: Temp Pulse Resp BP Pulse Ox 97.6 F 65 18 152/73 H 96 09/19/20 03:18 09/19/20 03:18 09/19/20 03:18 09/19/20 03:18 09/19/20 03:18 Intake & Output 09/18/20 09/19/20 09/20/20 06:59 06:59 06:59 Intake Total 1555 1460 Output Total 3125 Balance 1555 -1665 Weight 89.4 kg 90.7 kg General appearance: PRESENT: no acute distress, well-developed, well-nourished Head exam: PRESENT: atraumatic, normocephalic Eye exam: PRESENT: conjunctiva pink, EOMI, PERRLA. ABSENT: scleral icterus Ear exam: PRESENT: normal external ear exam Mouth exam: PRESENT: moist, tongue midline Neck exam: ABSENT: carotid bruit, JVD, lymphadenopathy, thyromegaly Respiratory exam: PRESENT: clear to auscultation raya. ABSENT: rales, rhonchi, wheezes Cardiovascular exam: PRESENT: RRR. ABSENT: diastolic murmur, rubs, systolic murmur Pulses: PRESENT: normal dorsalis pedis pul Vascular exam: PRESENT: normal capillary refill GI/Abdominal exam: PRESENT: normal bowel sounds, soft. ABSENT: distended, guarding, mass, organolmegaly, rebound, tenderness Rectal exam: PRESENT: deferred Extremities exam: PRESENT: full ROM. ABSENT: calf tenderness, clubbing, pedal edema Neurological exam: PRESENT: alert, awake, oriented to person, oriented to place, oriented to time, oriented to situation, CN II-XII grossly intact. ABSENT: motor sensory deficit Psychiatric exam: PRESENT: appropriate affect, normal mood. ABSENT: homicidal ideation, suicidal ideation Skin exam: PRESENT: dry, intact, warm. ABSENT: cyanosis, rash Results Laboratory Results: 09/19/20 05:24 09/18/20 04:30 09/18/20 09/19/20 04:30 05:24 WBC 8.3 RBC 4.83 Hgb 13.1 L Hct 38.4 MCV 80 MCH 27.1 MCHC 34.1 RDW 13.8 Plt Count 12 L* Seg Neutrophils % 81.9 H Sodium 133.8 L Potassium 4.9 Chloride 99 Carbon Dioxide 24 Anion Gap 11 BUN 42 H Creatinine 1.32 H Est GFR ( Amer) > 60 Glucose 427 H* Calcium 9.5 Impressions: Head CT 09/16/20 22:42 IMPRESSION: No acute intracranial findings. Assessment & Plan - Diagnosis (1) Acute ITP Is this a current diagnosis for this admission?: Yes Plan: Does appear to be acute ITP, platelet count has gone up to 12. Continue to monitor. We would like to see it trending up by tomorrow and hopefully we get then monitor him as an outpatient. - Time Time Spent with patient: 35 or more minutes
[2020-09-19] MEDS: INSULIN LISPRO 100 UNIT/ML 3 ML VIAL SUBCUT SCH ×4 (08:27→22:26)
[2020-09-19] MEDS: PANTOPRAZOLE SODIUM 40 MG TABLET.DR PO SCH (08:27)
--- NOTE | 2020-09-19 08:59 | PDOC PROGRESS REPORT ---
Subjective Date:: 09/19/20 Subjective:: Patient is currently doing well His platelet counts to go up to 12 Patient's denied any blood in the stools no black stools Patient other than that denied any other problems His blood sugar is running high due to the steroids adjust the insulins Reason For Visit: THROBOCYTOPRNIA Physical Exam Vital Signs: Temp Pulse Resp BP Pulse Ox 97.6 F 65 18 152/73 H 96 09/19/20 03:18 09/19/20 03:18 09/19/20 03:18 09/19/20 03:18 09/19/20 03:18 Intake & Output 09/18/20 09/19/20 09/20/20 06:59 06:59 06:59 Intake Total 1555 1460 Output Total 3125 Balance 1555 -1665 Weight 89.4 kg 90.7 kg General appearance: PRESENT: no acute distress, well-developed, well-nourished Head exam: PRESENT: atraumatic, normocephalic Eye exam: PRESENT: conjunctiva pink, EOMI, PERRLA. ABSENT: scleral icterus Ear exam: PRESENT: normal external ear exam Mouth exam: PRESENT: moist, tongue midline Neck exam: PRESENT: full ROM. ABSENT: carotid bruit, JVD, lymphadenopathy, thyromegaly Respiratory exam: PRESENT: clear to auscultation raya Cardiovascular exam: PRESENT: RRR. ABSENT: diastolic murmur, rubs, systolic murmur Pulses: PRESENT: normal dorsalis pedis pul, +2 pedal pulses bilateral Vascular exam: PRESENT: normal capillary refill GI/Abdominal exam: PRESENT: normal bowel sounds, soft. ABSENT: distended, guarding, mass, organolmegaly, rebound, tenderness Rectal exam: PRESENT: deferred Neurological exam: PRESENT: alert, awake, oriented to person, oriented to place, oriented to time, oriented to situation, CN II-XII grossly intact. ABSENT: motor sensory deficit Psychiatric exam: PRESENT: appropriate affect, normal mood. ABSENT: homicidal ideation, suicidal ideation Skin exam: PRESENT: dry, intact, warm. ABSENT: cyanosis, rash Results Laboratory Results: 09/19/20 05:24 09/18/20 04:30 09/18/20 09/19/20 04:30 05:24 WBC 8.3 RBC 4.83 Hgb 13.1 L Hct 38.4 MCV 80 MCH 27.1 MCHC 34.1 RDW 13.8 Plt Count 12 L* Seg Neutrophils % 81.9 H Sodium 133.8 L Potassium 4.9 Chloride 99 Carbon Dioxide 24 Anion Gap 11 BUN 42 H Creatinine 1.32 H Est GFR ( Amer) > 60 Glucose 427 H* Calcium 9.5 Impressions: Head CT 09/16/20 22:42 IMPRESSION: No acute intracranial findings. Assessment & Plan - Diagnosis (1) Severe thrombocytopenia Is this a current diagnosis for this admission?: Yes (2) Type 2 diabetes mellitus Qualifiers: Diabetes mellitus prison insulin use: unspecified emt intermediate insulin use status Diabetes mellitus complication status: without complication Qualified Code(s): E11.9 - Type 2 diabetes mellitus without complications Is this a current diagnosis for this admission?: Yes (3) Acute kidney failure Qualifiers: Acute renal failure type: unspecified Qualified Code(s): N17.9 - Acute kidney failure, unspecified Is this a current diagnosis for this admission?: Yes (4) COPD (chronic obstructive pulmonary disease) Qualifiers: COPD type: chronic bronchitis Is this a current diagnosis for this admission?: Yes (5) Coronary artery disease Qualifiers: Coronary Disease-Associated Artery/Lesion type: [place] artery Associated angina: without angina Is this a current diagnosis for this admission?: Yes (6) Hyperlipidemia Qualifiers: Hyperlipidemia type: unspecified Qualified Code(s): E78.5 - Hyperlipidemia, unspecified Is this a current diagnosis for this admission?: Yes (7) Sleep apnea syndrome Qualifiers: Sleep apnea type: unspecified type Is this a current diagnosis for this admission?: Yes - Time Time Spent with patient: 15-24 minutes Level of Care: IMCU Medications reviewed and adjusted accordingly: Yes Anticipated discharge: Other - Plan Summary Plan Summary: Adjust the insulins Check Chem-7 Continues the current medications continues to follow with [facility]
[2020-09-19 09:28] LABS: ANION GAP 13 (5-19); BLOOD UREA NITROGEN 40 mg/dL (7-20); CALCIUM 9.4 mg/dL (8.4-10.2); CARBON DIOXIDE 21 mmol/L (22-30); CHLORIDE 99 mmol/L (98-107)
[2020-09-19 09:47] LABS: GLUCOSE 408 mg/dL (75-110)
[2020-09-19] MEDS: METOPROLOL TARTRATE 25 MG TABLET PO SCH ×2 (10:14→22:27)
[2020-09-19] MEDS: CETIRIZINE 5 MG TABLET PO SCH (10:14)
[2020-09-19] MEDS: FENOFIBRATE NANOCRYSTALLIZED 145 MG TABLET PO SCH (10:14)
[2020-09-19] MEDS: PREDNISONE 10 MG TABLET PO SCH ×2 (10:14→17:22)
[2020-09-19] MEDS: TRAMADOL HCL 50 MG TABLET PO SCH ×4 (10:14→22:27)
[2020-09-19] MEDS: AMLODIPINE BESYLATE 10 MG TABLET PO SCH (10:14)
[2020-09-19] MEDS: FLUTICASONE/UMECLIDIN/VILANTER 100-62.5-25 MCG/DOSE IH SCH (10:15)
[2020-09-19 13:40] LABS: PATH REVIEW PATHOLOGIST REVIEWED
[2020-09-19] MEDS: MONTELUKAST SODIUM 10 MG TABLET PO SCH (17:22)
[2020-09-19] MEDS: TAMSULOSIN HCL 0.4 MG CAP.SR.24H PO SCH (17:22)
[2020-09-19] MEDS: INSULIN GLARGINE,HUM.REC.ANLOG 1,000 UNIT/10 ML VIAL SUBCUT SCH (22:27)
[2020-09-19] MEDS: ATORVASTATIN CALCIUM 40 MG TABLET PO SCH (22:27)
[2020-09-20 06:44] LABS: ABSOLUTE LYMPHOCYTES (AUTO) 1.2 10^3/uL (0.5-4.7); ABSOLUTE MONOCYTES (AUTO) 0.5 10^3/uL (0.1-1.4); ABSOLUTE NEUT (AUTO) 7.1 10^3/uL (1.7-8.2); BASOPHILS % (AUTO) 0.1 % (0-2); HEMATOCRIT 39.8 % (37.9-51.0); HEMOGLOBIN 13.4 g/dL (13.5-17.0); LYMPHOCYTES % (AUTO) 13.3 % (13-45); MEAN CORPUSCULAR HEMOGLOBIN 26.5 pg (27.0-33.4); MEAN CORPUSCULAR HGB CONC 33.6 g/dL (32.0-36.0); MEAN CORPUSCULAR VOLUME 79 fl (80-97); MONOCYTES % (AUTO) 5.3 % (3-13); RED BLOOD COUNT 5.05 10^6/uL (4.35-5.55); RED CELL DISTRIBUTION WIDTH 14.2 % (11.5-14.0); SEGMENTED NEUTROPHILS % (AUTO) 81.3 % (42-78); TOTAL CELLS COUNTED % (AUTO) 100 %; WHITE BLOOD COUNT 8.7 10^3/uL (4.0-10.5)
[2020-09-20 07:07] LABS: ANION GAP 11 (5-19); BLOOD UREA NITROGEN 36 mg/dL (7-20); CALCIUM 9.3 mg/dL (8.4-10.2); CARBON DIOXIDE 23 mmol/L (22-30); CHLORIDE 100 mmol/L (98-107); GLUCOSE 335 mg/dL (75-110)
[2020-09-20 07:28] LABS: PLATELET COUNT 35 10^3/uL (150-450)
--- NOTE | 2020-09-20 07:50 | PDOC PROGRESS REPORT ---
Subjective Date:: 09/20/20 Subjective:: Plt ct improved, BG levels still high. Dr. Giles working on control of levels. PLT ct up to 35 today c/w recurrent ITP episode Reason For Visit: THROBOCYTOPRNIA Physical Exam Vital Signs: Temp Pulse Resp BP Pulse Ox 97.4 F 53 L 15 164/64 H 99 09/20/20 04:08 09/20/20 04:08 09/20/20 04:08 09/20/20 04:08 09/20/20 06:45 Intake & Output 09/19/20 09/20/20 09/21/20 06:59 06:59 06:59 Intake Total 1460 3430 Output Total 3125 4600 Balance -1665 -1170 Weight 90.7 kg General appearance: PRESENT: no acute distress, well-developed, well-nourished Head exam: PRESENT: atraumatic, normocephalic Eye exam: PRESENT: conjunctiva pink, EOMI, PERRLA. ABSENT: scleral icterus Ear exam: PRESENT: normal external ear exam Mouth exam: PRESENT: moist, tongue midline Neck exam: ABSENT: carotid bruit, JVD, lymphadenopathy, thyromegaly Respiratory exam: PRESENT: clear to auscultation raya. ABSENT: rales, rhonchi, wheezes Cardiovascular exam: PRESENT: RRR. ABSENT: diastolic murmur, rubs, systolic murmur Pulses: PRESENT: normal dorsalis pedis pul Vascular exam: PRESENT: normal capillary refill GI/Abdominal exam: PRESENT: normal bowel sounds, soft. ABSENT: distended, guarding, mass, organolmegaly, rebound, tenderness Rectal exam: PRESENT: deferred Extremities exam: PRESENT: full ROM. ABSENT: calf tenderness, clubbing, pedal e tonya Neurological exam: PRESENT: alert, awake, oriented to person, oriented to place, oriented to time, oriented to situation, CN II-XII grossly intact. ABSENT: motor sensory deficit Psychiatric exam: PRESENT: appropriate affect, normal mood. ABSENT: homicidal ideation, suicidal ideation Skin exam: PRESENT: dry, intact, warm. ABSENT: cyanosis, rash Results Laboratory Results: 09/20/20 05:43 09/20/20 05:43 09/19/20 09/20/20 09/20/20 05:24 05:43 05:43 WBC 8.7 RBC 5.05 Hgb 13.4 L Hct 39.8 MCV 79 L MCH 26.5 L MCHC 33.6 RDW 14.2 H Plt Count 35 L D Seg Neutrophils % 81.3 H Sodium 133.3 L 134.2 L Potassium 5.0 5.0 Chloride 99 100 Carbon Dioxide 21 L 23 Anion Gap 13 11 BUN 40 H 36 H Creatinine 1.21 1.10 Est GFR ( Amer) > 60 > 60 Glucose 408 H* 335 H Calcium 9.4 9.3 Impressions: Head CT 09/16/20 22:42 IMPRESSION: No acute intracranial findings. Assessment & Plan - Diagnosis (1) Acute ITP Is this a current diagnosis for this admission?: Yes Plan: Seems that it is steroid responsive. Hopefully will recover to >100K by 1 wk. If so, will be able to taper at that time but will probably require 4 wk taper at least. - Time Time Spent with patient: 35 or more minutes
[2020-09-20] MEDS: INSULIN LISPRO 100 UNIT/ML 3 ML VIAL SUBCUT SCH ×4 (07:56→22:09)
[2020-09-20] MEDS: PANTOPRAZOLE SODIUM 40 MG TABLET.DR PO SCH (07:56)
--- NOTE | 2020-09-20 08:22 | PDOC PROGRESS REPORT ---
Subjective Date:: 09/20/20 Subjective:: Patient is currently doing well Since platelet count is 35 Patient's denied any blood in the stools no black stools No chest pain no short of breath Reason For Visit: THROBOCYTOPRNIA Physical Exam Vital Signs: Temp Pulse Resp BP Pulse Ox 97.4 F 63 15 164/64 H 99 09/20/20 07:52 09/20/20 07:00 09/20/20 04:08 09/20/20 04:08 09/20/20 06:45 Intake & Output 09/19/20 09/20/20 09/21/20 06:59 06:59 06:59 Intake Total 1460 3480 Output Total 3125 5843 Balance -1665 -2560 Weight 90.7 kg 90.5 kg General appearance: PRESENT: no acute distress, well-developed, well-nourished Head exam: PRESENT: atraumatic, normocephalic Eye exam: PRESENT: conjunctiva pink, EOMI, PERRLA. ABSENT: scleral icterus Ear exam: PRESENT: normal external ear exam Mouth exam: PRESENT: moist, tongue midline Neck exam: PRESENT: full ROM. ABSENT: carotid bruit, JVD, lymphadenopathy, thyromegaly Respiratory exam: PRESENT: clear to auscultation raya Cardiovascular exam: PRESENT: RRR. ABSENT: diastolic murmur, rubs, systolic murmur Pulses: PRESENT: normal dorsalis pedis pul, +2 pedal pulses bilateral Vascular exam: PRESENT: normal capillary refill GI/Abdominal exam: PRESENT: normal bowel sounds, soft. ABSENT: distended, guarding, mass, organolmegaly, rebound, tenderness Rectal exam: PRESENT: deferred Musculoskeletal exam: PRESENT: ambulatory Neurological exam: PRESENT: alert, awake, oriented to person, oriented to place, oriented to time, oriented to situation, CN II-XII grossly intact. ABSENT: motor sensory deficit Psychiatric exam: PRESENT: appropriate affect, normal mood. ABSENT: homicidal ideation, suicidal ideation Skin exam: PRESENT: dry, intact, warm. ABSENT: cyanosis, rash Results Laboratory Results: 09/20/20 05:43 09/20/20 05:43 09/19/20 09/20/20 09/20/20 05:24 05:43 05:43 WBC 8.7 RBC 5.05 Hgb 13.4 L Hct 39.8 MCV 79 L MCH 26.5 L MCHC 33.6 RDW 14.2 H Plt Count 35 L D Seg Neutrophils % 81.3 H Sodium 133.3 L 134.2 L Potassium 5.0 5.0 Chloride 99 100 Carbon Dioxide 21 L 23 Anion Gap 13 11 BUN 40 H 36 H Creatinine 1.21 1.10 Est GFR ( Amer) > 60 > 60 Glucose 408 H* 335 H Calcium 9.4 9.3 Impressions: Head CT 09/16/20 22:42 IMPRESSION: No acute intracranial findings. Assessment & Plan - Diagnosis (1) Severe thrombocytopenia Is this a current diagnosis for this admission?: Yes (2) Type 2 diabetes mellitus Qualifiers: Diabetes mellitus jail insulin use: unspecified jail insulin use status Diabetes mellitus complication status: without complication Qualified Code(s): E11.9 - Type 2 diabetes mellitus without complications Is this a current diagnosis for this admission?: Yes (3) Acute kidney failure Qualifiers: Acute renal failure type: unspecified Qualified Code(s): N17.9 - Acute kidney failure, unspecified Is this a current diagnosis for this admission?: Yes (4) COPD (chronic obstructive pulmonary disease) Qualifiers: COPD type: chronic bronchitis Is this a current diagnosis for this admission?: Yes (5) Coronary artery disease Qualifiers: Coronary Disease-Associated Artery/Lesion type: [place] artery Associated angina: without angina Is this a current diagnosis for this admission?: Yes (6) Hyperlipidemia Qualifiers: Hyperlipidemia type: unspecified Qualified Code(s): E78.5 - Hyperlipidemia, unspecified Is this a current diagnosis for this admission?: Yes (7) Sleep apnea syndrome Qualifiers: Sleep apnea type: unspecified type Is this a current diagnosis for this admission?: Yes - Time Time Spent with patient: 15-24 minutes Level of Care: IMCU Medications reviewed and adjusted accordingly: Yes Anticipated discharge: Home Anticipated DC Timeframe: Other - Plan Summary Plan Summary: Continues the current medications adjust the insulin
[2020-09-20] MEDS ORDERED: INSULIN GLARGINE,HUM.REC.ANLOG 1,000 UNIT/10 ML VIAL SUBCUT SCH (10:00)
[2020-09-20] MEDS: PREDNISONE 10 MG TABLET PO SCH ×2 (10:08→17:00)
[2020-09-20] MEDS: FENOFIBRATE NANOCRYSTALLIZED 145 MG TABLET PO SCH (10:08)
[2020-09-20] MEDS: METOPROLOL TARTRATE 25 MG TABLET PO SCH ×2 (10:08→22:10)
[2020-09-20] MEDS: TRAMADOL HCL 50 MG TABLET PO SCH ×4 (10:09→22:40)
[2020-09-20] MEDS: AMLODIPINE BESYLATE 10 MG TABLET PO SCH (10:09)
[2020-09-20] MEDS: CETIRIZINE 5 MG TABLET PO SCH (10:09)
[2020-09-20] MEDS: FLUTICASONE/UMECLIDIN/VILANTER 100-62.5-25 MCG/DOSE IH SCH (10:10)
[2020-09-20] MEDS: BENZONATATE 100 MG CAPSULE PO PRN (10:38)
[2020-09-20] MEDS: TAMSULOSIN HCL 0.4 MG CAP.SR.24H PO SCH (17:01)
[2020-09-20] MEDS: MONTELUKAST SODIUM 10 MG TABLET PO SCH (17:01)
--- NOTE | 2020-09-20 17:49 | EKG REPORT ---
SEVERITY:- ABNORMAL ECG - SINUS RHYTHM LAD, CONSIDER LEFT ANTERIOR FASCICULAR BLOCK : Confirmed by: Jessi Ortega 20-Sep-2020 17:48:41
[2020-09-20] MEDS: INSULIN GLARGINE,HUM.REC.ANLOG 1,000 UNIT/10 ML VIAL SUBCUT SCH (22:09)
[2020-09-20] MEDS: ATORVASTATIN CALCIUM 40 MG TABLET PO SCH (22:10)
[2020-09-21 07:40] LABS: ANION GAP 11 (5-19); BLOOD UREA NITROGEN 42 mg/dL (7-20); CALCIUM 9.7 mg/dL (8.4-10.2); CARBON DIOXIDE 23 mmol/L (22-30); CHLORIDE 101 mmol/L (98-107); GLUCOSE 354 mg/dL (75-110); POTASSIUM 4.9 mmol/L (3.6-5.0)
[2020-09-21] MEDS: PANTOPRAZOLE SODIUM 40 MG TABLET.DR PO SCH (08:20)
[2020-09-21] MEDS: INSULIN LISPRO 100 UNIT/ML 3 ML VIAL SUBCUT SCH ×4 (08:20→22:36)
--- NOTE | 2020-09-21 08:21 | PDOC PROGRESS REPORT ---
Subjective Date:: 09/21/20 Subjective:: Platelet count pending from this morning, feels good. Sugar still high. Reason For Visit: THROBOCYTOPRNIA Physical Exam Vital Signs: Temp Pulse Resp BP Pulse Ox 97.9 F 53 L 14 158/70 H 99 09/21/20 04:31 09/21/20 04:31 09/21/20 04:31 09/21/20 04:31 09/21/20 04:31 Intake & Output 09/20/20 09/21/20 09/22/20 06:59 06:59 06:59 Intake Total 3480 2656 Output Total 5825 575 Balance -2345 2081 Weight 90.5 kg 90.4 kg General appearance: PRESENT: no acute distress, well-developed, well-nourished Head exam: PRESENT: atraumatic, normocephalic Eye exam: PRESENT: conjunctiva pink, EOMI, PERRLA. ABSENT: scleral icterus Ear exam: PRESENT: normal external ear exam Mouth exam: PRESENT: moist, tongue midline Neck exam: ABSENT: carotid bruit, JVD, lymphadenopathy, thyromegaly Respiratory exam: PRESENT: clear to auscultation raya. ABSENT: rales, rhonchi, wheezes Cardiovascular exam: PRESENT: RRR. ABSENT: diastolic murmur, rubs, systolic murmur Pulses: PRESENT: normal dorsalis pedis pul Vascular exam: PRESENT: normal capillary refill GI/Abdominal exam: PRESENT: normal bowel sounds, soft. ABSENT: distended, guarding, mass, organolmegaly, rebound, tenderness Rectal exam: PRESENT: deferred Extremities exam: PRESENT: full ROM. ABSENT: calf tenderness, clubbing, pedal edema Neurological exam: PRESENT: alert, awake, oriented to person, oriented to place, oriented to time, oriented to situation, CN II-XII grossly intact. ABSENT: motor sensory deficit Psychiatric exam: PRESENT: appropriate affect, normal mood. ABSENT: homicidal ideation, suicidal ideation Skin exam: PRESENT: dry, intact, warm. ABSENT: cyanosis, rash Results Laboratory Results: 09/21/20 06:25 09/21/20 06:25 Sodium 134.7 L Potassium 4.9 Chloride 101 Carbon Dioxide 23 Anion Gap 11 BUN 42 H Creatinine 1.14 Est GFR ( Amer) > 60 Glucose 354 H Calcium 9.7 Impressions: Head CT 09/16/20 22:42 IMPRESSION: No acute intracranial findings. Assessment & Plan - Diagnosis (1) Acute ITP Is this a current diagnosis for this admission?: Yes Plan: Improved with yesterday's count, hopefully should improve today. Awaiting CBC. If trending up today, could potentially go home once sugars are appropriately controlled. He will need to go home on prednisone 90 mg daily, 2-week supply at least given. We will see him 1 week after discharge and I will taper steroid thereafter. - Time Time Spent with patient: 35 or more minutes
[2020-09-21 08:38] LABS: HEMOGLOBIN 13.2 g/dL (13.5-17.0); MEAN CORPUSCULAR HEMOGLOBIN 26.1 pg (27.0-33.4); MEAN CORPUSCULAR VOLUME 79 fl (80-97); RED BLOOD COUNT 5.04 10^6/uL (4.35-5.55); RED CELL DISTRIBUTION WIDTH 14.2 % (11.5-14.0); WHITE BLOOD COUNT 11.1 10^3/uL (4.0-10.5)
[2020-09-21] MEDS: INSULIN GLARGINE,HUM.REC.ANLOG 1,000 UNIT/10 ML VIAL SUBCUT SCH ×2 (09:12→22:37)
[2020-09-21] MEDS: TRAMADOL HCL 50 MG TABLET PO SCH ×4 (09:14→22:12)
[2020-09-21] MEDS: PREDNISONE 10 MG TABLET PO SCH ×2 (09:15→17:16)
[2020-09-21] MEDS: CETIRIZINE 5 MG TABLET PO SCH (09:15)
[2020-09-21] MEDS: FENOFIBRATE NANOCRYSTALLIZED 145 MG TABLET PO SCH (09:16)
[2020-09-21 09:19] LABS: ABSOLUTE LYMPHOCYTES# (MANUAL) 1.6 10^3/uL (0.5-4.7); ABSOLUTE MONOCYTES # (MANUAL) 0.9 10^3/uL (0.1-1.4); BASOPHILS % (MANUAL) 0 % (0-2); EOSINOPHILS % (MANUAL) 0 % (0-6); LYMPHOCYTES % (MANUAL) 13 % (13-45); MONOCYTES % (MANUAL) 8 % (3-13); SEGMENTED NEUTROPHILS % (MAN) 78 % (42-78); TOTAL CELLS COUNTED 100
[2020-09-21 09:20] LABS: ANISOCYTOSIS SLIGHT; HYPOCHROMASIA SLIGHT
[2020-09-21] MEDS: METOPROLOL TARTRATE 25 MG TABLET PO SCH ×2 (09:20→22:12)
[2020-09-21] MEDS: FLUTICASONE/UMECLIDIN/VILANTER 100-62.5-25 MCG/DOSE IH SCH (09:20)
[2020-09-21] MEDS: AMLODIPINE BESYLATE 10 MG TABLET PO SCH (09:20)
[2020-09-21 09:22] LABS: PLATELET COMMENT DECREASED
[2020-09-21 09:25] LABS: PLATELET COUNT 78 10^3/uL (150-450)
--- NOTE | 2020-09-21 10:06 | PDOC PROGRESS REPORT ---
Subjective Date:: 09/21/20 Subjective:: Patient is currently doing well Platelet count is 78 Patient's blood sugar still elevated due to the ongoing steroid and adjust the more insulin but patient's BMP is all stable Denied any chest pain no short of breath Reason For Visit: THROBOCYTOPRNIA Physical Exam Vital Signs: Temp Pulse Resp BP Pulse Ox 97.9 F 53 L 14 158/70 H 99 09/21/20 04:31 09/21/20 04:31 09/21/20 04:31 09/21/20 04:31 09/21/20 04:31 Intake & Output 09/20/20 09/21/20 09/22/20 06:59 06:59 06:59 Intake Total 3480 2656 Output Total 5825 575 Balance -2345 2081 Weight 90.5 kg 90.4 kg General appearance: PRESENT: no acute distress, well-developed, well-nourished Head exam: PRESENT: atraumatic, normocephalic Eye exam: PRESENT: conjunctiva pink, EOMI, PERRLA. ABSENT: scleral icterus Ear exam: PRESENT: normal external ear exam Mouth exam: PRESENT: moist, tongue midline Neck exam: PRESENT: full ROM. ABSENT: carotid bruit, JVD, lymphadenopathy, thyromegaly Cardiovascular exam: PRESENT: RRR. ABSENT: diastolic murmur, rubs, systolic murmur Pulses: PRESENT: normal dorsalis pedis pul, +2 pedal pulses bilateral Vascular exam: PRESENT: normal capillary refill GI/Abdominal exam: PRESENT: normal bowel sounds, soft. ABSENT: distended, guarding, mass, organolmegaly, rebound, tenderness Rectal exam: PRESENT: deferred Musculoskeletal exam: PRESENT: ambulatory Neurological exam: PRESENT: alert, awake, oriented to person, oriented to place, oriented to time, oriented to situation, CN II-XII grossly intact. ABSENT: motor sensory deficit Psychiatric exam: PRESENT: appropriate affect, normal mood. ABSENT: homicidal ideation, suicidal ideation Skin exam: PRESENT: dry, intact, warm. ABSENT: cyanosis, rash Results Laboratory Results: 09/21/20 06:25 09/21/20 06:25 09/21/20 09/21/20 06:25 06:25 WBC 11.1 H RBC 5.04 Hgb 13.2 L Hct 40.0 MCV 79 L MCH 26.1 L MCHC 33.0 RDW 14.2 H Plt Count 78 L D Seg Neutrophils % Not Reportable Sodium 134.7 L Potassium 4.9 Chloride 101 Carbon Dioxide 23 Anion Gap 11 BUN 42 H Creatinine 1.14 Est GFR ( Amer) > 60 Glucose 354 H Calcium 9.7 Impressions: Head CT 09/16/20 22:42 IMPRESSION: No acute intracranial findings. Assessment & Plan - Diagnosis (1) Severe thrombocytopenia Is this a current diagnosis for this admission?: Yes (2) Type 2 diabetes mellitus Qualifiers: Diabetes mellitus longterm insulin use: unspecified emt intermediate insulin use status Diabetes mellitus complication status: without complication Qualified Code(s): E11.9 - Type 2 diabetes mellitus without complications Is this a current diagnosis for this admission?: Yes (3) Acute kidney failure Qualifiers: Acute renal failure type: unspecified Qualified Code(s): N17.9 - Acute kidney failure, unspecified Is this a current diagnosis for this admission?: Yes (4) COPD (chronic obstructive pulmonary disease) Qualifiers: COPD type: chronic bronchitis Is this a current diagnosis for this admission?: Yes (5) Coronary artery disease Qualifiers: Coronary Disease-Associated Artery/Lesion type: [place] artery Associated angina: without angina Is this a current diagnosis for this admission?: Yes (6) Hyperlipidemia Qualifiers: Hyperlipidemia type: unspecified Qualified Code(s): E78.5 - Hyperlipidemia, unspecified Is this a current diagnosis for this admission?: Yes (7) Sleep apnea syndrome Qualifiers: Sleep apnea type: unspecified type Is this a current diagnosis for this admission?: Yes - Time Time Spent with patient: 15-24 minutes Level of Care: IMCU Medications reviewed and adjusted accordingly: Yes Anticipated discharge: Home Anticipated DC Timeframe: Other - Plan Summary Plan Summary: Increase the Lantus continues a sliding scale continues to monitor as per discussed with the hoop cutter most likely patient should be discharged on Saturday if his platelet counts remain stable and blood sugar remained stable
[2020-09-21] MEDS: BENZONATATE 100 MG CAPSULE PO PRN (11:01)
[2020-09-21] MEDS ORDERED: INSULIN LISPRO 100 UNIT/ML 3 ML VIAL ONE (16:43)
[2020-09-21] MEDS ORDERED: INSULIN LISPRO 100 UNIT/ML 3 ML VIAL SUBCUT ONE (17:15)
[2020-09-21] MEDS: TAMSULOSIN HCL 0.4 MG CAP.SR.24H PO SCH (17:16)
[2020-09-21] MEDS: MONTELUKAST SODIUM 10 MG TABLET PO SCH (17:16)
[2020-09-21] MEDS: ATORVASTATIN CALCIUM 40 MG TABLET PO SCH (22:12)
[2020-09-22 06:27] LABS: ANION GAP 11 (5-19); BLOOD UREA NITROGEN 42 mg/dL (7-20); CALCIUM 9.5 mg/dL (8.4-10.2); CARBON DIOXIDE 26 mmol/L (22-30); CHLORIDE 98 mmol/L (98-107); GLUCOSE 335 mg/dL (75-110)
[2020-09-22 07:02] LABS: HEMATOCRIT 41.4 % (37.9-51.0); HEMOGLOBIN 13.6 g/dL (13.5-17.0); MEAN CORPUSCULAR HGB CONC 32.8 g/dL (32.0-36.0); MEAN CORPUSCULAR VOLUME 79 fl (80-97); PLATELET COUNT 133 10^3/uL (150-450); RED BLOOD COUNT 5.22 10^6/uL (4.35-5.55); RED CELL DISTRIBUTION WIDTH 14.4 % (11.5-14.0); WHITE BLOOD COUNT 13.1 10^3/uL (4.0-10.5)
[2020-09-22 07:35] LABS: ABSOLUTE LYMPHOCYTES# (MANUAL) 3.8 10^3/uL (0.5-4.7); ABSOLUTE MONOCYTES # (MANUAL) 0.5 10^3/uL (0.1-1.4); BAND NEUTROPHILS % (MANUAL) 3 % (3-5); BASOPHILS % (MANUAL) 0 % (0-2); EOSINOPHILS % (MANUAL) 0 % (0-6); LYMPHOCYTES % (MANUAL) 26 % (13-45); MONOCYTES % (MANUAL) 4 % (3-13); SEGMENTED NEUTROPHILS % (MAN) 64 % (42-78); TOTAL CELLS COUNTED 100
[2020-09-22 07:37] LABS: ANISOCYTOSIS SLIGHT; OVALOCYTES SLIGHT; PLATELET COMMENT DECREASED; POIKILOCYTOSIS SLIGHT; POLYCHROMASIA SLIGHT; SMUDGE CELLS PRESENT
--- NOTE | 2020-09-22 08:01 | PDOC PROGRESS REPORT ---
Subjective Date:: 09/22/20 Subjective:: Platelet count improved yesterday to 78. Reason For Visit: THROBOCYTOPRNIA Physical Exam Vital Signs: Temp Pulse Resp BP Pulse Ox 97.6 F 56 L 14 97/74 L 98 09/22/20 04:50 09/22/20 04:50 09/22/20 04:50 09/22/20 04:50 09/22/20 04:50 Intake & Output 09/21/20 09/22/20 09/23/20 06:59 06:59 06:59 Intake Total 2656 1347 Output Total 575 Balance 2081 1347 Weight 90.4 kg 91.9 kg General appearance: PRESENT: no acute distress, well-developed, well-nourished Head exam: PRESENT: atraumatic, normocephalic Eye exam: PRESENT: conjunctiva pink, EOMI, PERRLA. ABSENT: scleral icterus Ear exam: PRESENT: normal external ear exam Mouth exam: PRESENT: moist, tongue midline Neck exam: ABSENT: carotid bruit, JVD, lymphadenopathy, thyromegaly Respiratory exam: PRESENT: clear to auscultation raya. ABSENT: rales, rhonchi, wheezes Cardiovascular exam: PRESENT: RRR. ABSENT: diastolic murmur, rubs, systolic murmur Pulses: PRESENT: normal dorsalis pedis pul Vascular exam: PRESENT: normal capillary refill GI/Abdominal exam: PRESENT: normal bowel sounds, soft. ABSENT: distended, guarding, mass, organolmegaly, rebound, tenderness Rectal exam: PRESENT: deferred Extremities exam: PRESENT: full ROM. ABSENT: calf tenderness, clubbing, pedal edema Neurological exam: PRESENT: alert, awake, oriented to person, oriented to place, oriented to time, oriented to situation, CN II-XII grossly intact. ABSENT: motor sensory deficit Psychiatric exam: PRESENT: appropriate affect, normal mood. ABSENT: homicidal ideation, suicidal ideation Skin exam: PRESENT: dry, intact, warm. ABSENT: cyanosis, rash Results Laboratory Results: 09/22/20 06:42 09/22/20 05:23 09/21/20 09/22/20 09/22/20 06:25 05:23 05:23 WBC 11.1 H Cancelled RBC 5.04 Cancelled Hgb 13.2 L Cancelled Hct 40.0 Cancelled MCV 79 L Cancelled MCH 26.1 L Cancelled MCHC 33.0 Cancelled RDW 14.2 H Cancelled Plt Count 78 L D Cancelled Seg Neutrophils % Not Reportable Cancelled Sodium 135.0 L Potassium 5.0 Chloride 98 Carbon Dioxide 26 Anion Gap 11 BUN 42 H Creatinine 1.37 H Est GFR ( Amer) > 60 Glucose 335 H Calcium 9.5 09/22/20 06:42 WBC 13.1 H RBC 5.22 Hgb 13.6 Hct 41.4 MCV 79 L MCH 26.0 L MCHC 32.8 RDW 14.4 H Plt Count 133 L Seg Neutrophils % Not Reportable Sodium Potassium Chloride Carbon Dioxide Anion Gap BUN Creatinine Est GFR ( Amer) Glucose Calcium Impressions: Head CT 09/16/20 22:42 IMPRESSION: No acute intracranial findings. Assessment & Plan - Diagnosis (1) Acute ITP Is this a current diagnosis for this admission?: Yes Plan: Doing better, likely DC tomorrow if sugars controlled. Will follow next week In office. - Time Time Spent with patient: 25-34 minutes
[2020-09-22] MEDS: INSULIN LISPRO 100 UNIT/ML 3 ML VIAL SUBCUT SCH ×7 (08:43→21:37)
[2020-09-22] MEDS: PANTOPRAZOLE SODIUM 40 MG TABLET.DR PO SCH (08:48)
[2020-09-22] MEDS: INSULIN GLARGINE,HUM.REC.ANLOG 1,000 UNIT/10 ML VIAL SUBCUT SCH ×2 (11:15→21:38)
[2020-09-22] MEDS: FENOFIBRATE NANOCRYSTALLIZED 145 MG TABLET PO SCH (11:16)
[2020-09-22] MEDS: CETIRIZINE 5 MG TABLET PO SCH (11:16)
[2020-09-22] MEDS: TRAMADOL HCL 50 MG TABLET PO SCH ×4 (11:16→21:38)
[2020-09-22] MEDS: METOPROLOL TARTRATE 25 MG TABLET PO SCH ×2 (11:17→21:38)
[2020-09-22] MEDS: PREDNISONE 10 MG TABLET PO SCH ×2 (11:17→17:44)
[2020-09-22] MEDS: AMLODIPINE BESYLATE 10 MG TABLET PO SCH (11:17)
[2020-09-22] MEDS: FLUTICASONE/UMECLIDIN/VILANTER 100-62.5-25 MCG/DOSE IH SCH (11:24)
--- NOTE | 2020-09-22 12:16 | PDOC PROGRESS REPORT ---
Subjective Date:: 09/22/20 Subjective:: Patient is currently doing well Denied any chest pain no short of breath Patient's platelet count is 133 Reason For Visit: THROBOCYTOPRNIA Physical Exam Vital Signs: Temp Pulse Resp BP Pulse Ox 98.4 F 50 L 18 144/76 H 97 09/22/20 07:49 09/22/20 07:49 09/22/20 07:49 09/22/20 07:49 09/22/20 07:49 Intake & Output 09/21/20 09/22/20 09/23/20 06:59 06:59 06:59 Intake Total 2656 1347 Output Total 575 Balance 1 1347 Weight 90.4 kg 91.9 kg General appearance: PRESENT: no acute distress, well-developed, well-nourished Head exam: PRESENT: atraumatic, normocephalic Eye exam: PRESENT: conjunctiva pink, EOMI, PERRLA. ABSENT: scleral icterus Ear exam: PRESENT: normal external ear exam Mouth exam: PRESENT: moist, tongue midline Neck exam: PRESENT: full ROM. ABSENT: carotid bruit, JVD, lymphadenopathy, thyromegaly Respiratory exam: PRESENT: clear to auscultation raya Cardiovascular exam: PRESENT: RRR. ABSENT: diastolic murmur, rubs, systolic murmur Pulses: PRESENT: normal dorsalis pedis pul, +2 pedal pulses bilateral Vascular exam: PRESENT: normal capillary refill GI/Abdominal exam: PRESENT: normal bowel sounds, soft. ABSENT: distended, guarding, mass, organolmegaly, rebound, tenderness Rectal exam: PRESENT: deferred Musculoskeletal exam: PRESENT: ambulatory Neurological exam: PRESENT: alert, awake, oriented to person, oriented to place, oriented to time, oriented to situation, CN II-XII grossly intact. ABSENT: motor sensory deficit Psychiatric exam: PRESENT: appropriate affect, normal mood. ABSENT: homicidal ideation, suicidal ideation Skin exam: PRESENT: dry, intact, warm. ABSENT: cyanosis, rash Results Laboratory Results: 09/22/20 06:42 09/22/20 05:23 09/22/20 09/22/20 09/22/20 05:23 05:23 06:42 WBC Cancelled 13.1 H RBC Cancelled 5.22 Hgb Cancelled 13.6 Hct Cancelled 41.4 MCV Cancelled 79 L MCH Cancelled 26.0 L MCHC Cancelled 32.8 RDW Cancelled 14.4 H Plt Count Cancelled 133 L Seg Neutrophils % Cancelled Not Reportable Sodium 135.0 L Potassium 5.0 Chloride 98 Carbon Dioxide 26 Anion Gap 11 BUN 42 H Creatinine 1.37 H Est GFR ( Amer) > 60 Glucose 335 H Calcium 9.5 Impressions: Head CT 09/16/20 22:42 IMPRESSION: No acute intracranial findings. Assessment & Plan - Diagnosis (1) Severe thrombocytopenia Is this a current diagnosis for this admission?: Yes Plan: Currently all improving (2) Type 2 diabetes mellitus Qualifiers: Diabetes mellitus shelter insulin use: unspecified supervisor intermediates insulin use status Diabetes mellitus complication status: without complication Qualified Code(s): E11.9 - Type 2 diabetes mellitus without complications Is this a current diagnosis for this admission?: Yes Plan: Will increase the Humalog 20 units before each meal and continues the Lantus (3) Acute kidney failure Qualifiers: Acute renal failure type: unspecified Qualified Code(s): N17.9 - Acute kidney failure, unspecified Is this a current diagnosis for this admission?: Yes Plan: Normal saline (4) COPD (chronic obstructive pulmonary disease) Qualifiers: COPD type: chronic bronchitis Is this a current diagnosis for this admission?: Yes (5) Coronary artery disease Qualifiers: Coronary Disease-Associated Artery/Lesion type: [place] artery Associated angina: without angina Is this a current diagnosis for this admission?: Yes (6) Hyperlipidemia Qualifiers: Hyperlipidemia type: unspecified Qualified Code(s): E78.5 - Hyperlipidemia, unspecified Is this a current diagnosis for this admission?: Yes (7) Sleep apnea syndrome Qualifiers: Sleep apnea type: unspecified type Is this a current diagnosis for this admission?: Yes - Time Time Spent with patient: 15-24 minutes Level of Care: IMCU Medications reviewed and adjusted accordingly: Yes Anticipated discharge: Other Anticipated DC Timeframe: Other - Plan Summary Plan Summary: Continues to current medications
[2020-09-22] MEDS: NORMAL SALINE 1000 ML 1,000 ML IV PRN (15:03)
[2020-09-22] MEDS: TAMSULOSIN HCL 0.4 MG CAP.SR.24H PO SCH (17:43)
[2020-09-22] MEDS: MONTELUKAST SODIUM 10 MG TABLET PO SCH (17:43)
[2020-09-22] MEDS: ATORVASTATIN CALCIUM 40 MG TABLET PO SCH (21:38)
[2020-09-23] MEDS: NORMAL SALINE 1000 ML 1,000 ML IV PRN (05:56)
[2020-09-23 06:18] LABS: HEMATOCRIT 39.4 % (37.9-51.0); HEMOGLOBIN 13.1 g/dL (13.5-17.0); MEAN CORPUSCULAR HEMOGLOBIN 26.3 pg (27.0-33.4); MEAN CORPUSCULAR HGB CONC 33.3 g/dL (32.0-36.0); MEAN CORPUSCULAR VOLUME 79 fl (80-97); PLATELET COUNT 176 10^3/uL (150-450); RED BLOOD COUNT 4.99 10^6/uL (4.35-5.55); RED CELL DISTRIBUTION WIDTH 14.4 % (11.5-14.0); WHITE BLOOD COUNT 10.3 10^3/uL (4.0-10.5)
[2020-09-23 06:37] LABS: ANION GAP 9 (5-19); BLOOD UREA NITROGEN 40 mg/dL (7-20); CARBON DIOXIDE 24 mmol/L (22-30); CHLORIDE 99 mmol/L (98-107); GLUCOSE 279 mg/dL (75-110); POTASSIUM 5.2 mmol/L (3.6-5.0)
[2020-09-23 06:59] LABS: ABSOLUTE LYMPHOCYTES# (MANUAL) 1.8 10^3/uL (0.5-4.7); ABSOLUTE MONOCYTES # (MANUAL) 1.3 10^3/uL (0.1-1.4); BAND NEUTROPHILS % (MANUAL) 2 % (3-5); BASOPHILS % (MANUAL) 0 % (0-2); EOSINOPHILS % (MANUAL) 0 % (0-6); LYMPHOCYTES % (MANUAL) 17 % (13-45); MONOCYTES % (MANUAL) 13 % (3-13); PLATELET COMMENT ADEQUATE; SEGMENTED NEUTROPHILS % (MAN) 68 % (42-78); TOTAL CELLS COUNTED 100
--- NOTE | 2020-09-23 07:58 | PDOC PROGRESS REPORT ---
Subjective Date:: 09/23/20 Subjective:: Plt up to 170 today. Will d/c home today on oral pred dec to 70mg daily x 1 wk t hen will dec by 20mg weekly as outpt Reason For Visit: THROBOCYTOPRNIA Physical Exam Vital Signs: Temp Pulse Resp BP Pulse Ox 97.4 F 55 L 16 120/51 L 97 09/23/20 07:56 09/23/20 07:00 09/23/20 03:42 09/23/20 03:42 09/23/20 03:42 Intake & Output 09/22/20 09/23/20 09/24/20 06:59 06:59 06:59 Intake Total 1347 1557 Output Total 0 Balance 1347 1557 Weight 91.9 kg 92.2 kg General appearance: PRESENT: no acute distress, well-developed, well-nourished Head exam: PRESENT: atraumatic, normocephalic Eye exam: PRESENT: conjunctiva pink, EOMI, PERRLA. ABSENT: scleral icterus Ear exam: PRESENT: normal external ear exam Mouth exam: PRESENT: moist, tongue midline Neck exam: ABSENT: carotid bruit, JVD, lymphadenopathy, thyromegaly Respiratory exam: PRESENT: clear to auscultation raya. ABSENT: rales, rhonchi, wheezes Cardiovascular exam: PRESENT: RRR. ABSENT: diastolic murmur, rubs, systolic murmur Pulses: PRESENT: normal dorsalis pedis pul Vascular exam: PRESENT: normal capillary refill GI/Abdominal exam: PRESENT: normal bowel sounds, soft. ABSENT: distended, guarding, mass, organolmegaly, rebound, tenderness Rectal exam: PRESENT: deferred Extremities exam: PRESENT: full ROM. ABSENT: calf tenderness, clubbing, pedal edema Neurological exam: PRESENT: alert, awake, oriented to person, oriented to place, oriented to time, oriented to situation, CN II-XII grossly intact. ABSENT: motor sensory deficit Psychiatric exam: PRESENT: appropriate affect, normal mood. ABSENT: homicidal ideation, suicidal ideation Skin exam: PRESENT: dry, intact, warm. ABSENT: cyanosis, rash Results Laboratory Results: 09/23/20 05:28 09/23/20 05:28 09/23/20 09/23/20 05:28 05:28 WBC 10.3 RBC 4.99 Hgb 13.1 L Hct 39.4 MCV 79 L MCH 26.3 L MCHC 33.3 RDW 14.4 H Plt Count 176 Seg Neutrophils % Not Reportable Sodium 132.4 L Potassium 5.2 H Chloride 99 Carbon Dioxide 24 Anion Gap 9 BUN 40 H Creatinine 1.12 Est GFR ( Amer) > 60 Glucose 279 H Calcium 9.0 Impressions: Head CT 09/16/20 22:42 IMPRESSION: No acute intracranial findings. Assessment & Plan - Diagnosis (1) Acute ITP Is this a current diagnosis for this admission?: Yes Plan: Recovered, will start tapering. D/c home and follow up as outpt - Time Time Spent with patient: 35 or more minutes
[2020-09-23 08:01] VITALS: BP 156/82
[2020-09-23] MEDS: INSULIN LISPRO 100 UNIT/ML 3 ML VIAL SUBCUT SCH ×2 (08:13→08:14)
[2020-09-23] MEDS: PANTOPRAZOLE SODIUM 40 MG TABLET.DR PO SCH (08:13)
--- NOTE | 2020-09-23 09:41 | PDOC DISCHARGE SUMMARY ---
Impression - Admit/DC Date/PCP Admission Date/Primary Care Provider: 09/16/20 23:05 ZAIRE GEIGER MD Discharge Date: 09/23/20 - Discharge Diagnosis (1) Severe thrombocytopenia Is this a current diagnosis for this admission?: Yes (2) Type 2 diabetes mellitus Is this a current diagnosis for this admission?: Yes (3) Acute kidney failure Is this a current diagnosis for this admission?: Yes (4) COPD (chronic obstructive pulmonary disease) Is this a current diagnosis for this admission?: Yes (5) Coronary artery disease Is this a current diagnosis for this admission?: Yes (6) Hyperlipidemia Is this a current diagnosis for this admission?: Yes (7) Sleep apnea syndrome Is this a current diagnosis for this admission?: Yes - Additional Information Discharge Diet: Diabetic Discharge Activity: Activity As Tolerated Referrals: ALFREDO CHERY MD [ACTIVE STAFF] - 09/28/20 4:00 pm (in one week from discharge.l) ZAIRE GEIGER MD [Primary Care Provider] - 09/30/20 11:00 am (with Ashley) Prescriptions: Prednisone 10 mg PO DAILY #200 tablet Home Medications: Amlodipine Besylate [Norvasc 10 mg Tablet] 10 mg PO DAILY 12/24/19 Atorvastatin Calcium [Lipitor 40 mg Tablet] 40 mg PO QHS 12/24/19 Fluticasone/Umeclidin/Vilanter [Trelegy 100-62.5-25 Mcg Ellipta 14 Dose/Dpi] 1 puff IH DAILY 12/24/19 Levocetirizine Dihydrochloride [Xyzal] 5 mg PO DAILY 12/24/19 Metoprolol Tartrate [Lopressor 25 mg Tablet] 25 mg PO Q12 12/24/19 Montelukast Sodium [Singulair 10 mg Tablet] 10 mg PO QPM 12/24/19 Omeprazole 40 mg PO BID 12/24/19 Tamsulosin HCl [Flomax 0.4 mg Cap.sr] 0.4 mg PO QPM 12/24/19 Benzonatate [Tessalon Perles 100 mg Capsule] 300 mg PO Q4HP PRN 09/17/20 Fenofibrate Nanocrystallized [Fenofibrate] 145 mg PO DAILY 09/17/20 Insulin Glargine,Hum.rec.anlog [Lantus Insulin 100 Unit/1 ml 10 ml] 30 unit SUBCUT QHS 09/17/20 Insulin Regular, Human [Humulin R (Reg) Insulin 100 unit/mL] 0 unit SUBCUT .SLIDING SCALE 09/17/20 Nitroglycerin [Nitrostat 0.4 mg (1/150 Gr) Tabs 25/Bottle] 1 tab SL Q5MP PRN Tiotropium Br/Olodaterol HCl [Stiolto Respimat Inhal [place]] 2 puff IH DAILY 09/17/20 Tramadol HCl [Ultram 50 mg Tablet] 50 mg PO QID 09/17/20 Prednisone 10 mg PO DAILY #200 tablet 09/23/20 History of Present Illiness History of Present Illness: TAHIR FOURNIER is a 64 year old male Is a 64-year-old male with a history of the type 2 diabetes chronic kidney disease coronary artery disease hypertension hyperlipidemia multiple other comorbidity including recently diagnosed with the pulmonary nodules waiting for the biopsy also patients waiting for the cardiac cath at [facility] before the biopsy came to the emergency department with the complaining of her skin rash in the abdominal area started suddenly for the last 24 hours and according to the patient he has this problem 10 years back when his platelet count was low and patient seen by the local balloon artist at the times and could not find anything Patient's denied any chest pain no short of breath patient said he feels so good In the emergency department patient's platelet count was 8 in ER physician discussed with the hematology and suggested transfuse the platelet and give her steroids I saw the patient on the floor. platelet count is [address] was negative no active bleeding Patient otherwise currently doing well and according to the Dr. 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 and seems to continues to steroid and continues to monitor Hospital Course Hospital Course: This 64-year-old male's with the multiple medical problems as above came to the emergency department with the rash and diagnosed with a severe thrombocytopenia with a platelet count was 7 Patient admitting in the hospital start on IV steroids per the balloon artist diagnosed with the idiopathic thrombocytopenia which patient have a history before Is responds very well with the IV steroid and switched to the p.o. steroid Patient's blood sugar is running high adjust the insulin Patient's kidney function is all stable Walking the hallway without any problems No chest pain no short of breath Still have appointment to see Dr. Victor cardiology for cardiac cath as outpatient and also need a biopsy of the lung nodules Patient's follow-up with the Dr. Medel in 1 week Patient insulin is adjusted take Lantus 50 units twice a day and Humalog 20 to 25 units before each meal and also sliding scale Discussed with the patient and the regarding the checking the sugar watch for hypoglycemia Physical Exam Vital Signs: Temp Pulse Resp BP Pulse Ox 97.4 F 59 L 22 H 156/82 H 97 09/23/20 08:53 09/23/20 08:53 09/23/20 08:53 09/23/20 08:53 09/23/20 08:53 Intake & Output 09/22/20 09/23/20 09/24/20 06:59 06:59 06:59 Intake Total 1347 1557 Output Total 0 Balance 1347 1557 Weight 91.9 kg 92.2 kg General appearance: PRESENT: no acute distress, well-developed, well-nourished Head exam: PRESENT: atraumatic, normocephalic Eye exam: PRESENT: conjunctiva pink, EOMI, PERRLA. ABSENT: scleral icterus Ear exam: PRESENT: normal external ear exam Mouth exam: PRESENT: moist, tongue midline Neck exam: ABSENT: carotid bruit, JVD, lymphadenopathy, thyromegaly Respiratory exam: PRESENT: clear to auscultation raya. ABSENT: rales, rhonchi, wheezes Cardiovascular exam: PRESENT: RRR. ABSENT: diastolic murmur, rubs, systolic murmur Pulses: PRESENT: normal dorsalis pedis pul Vascular exam: PRESENT: normal capillary refill GI/Abdominal exam: PRESENT: normal bowel sounds, soft. ABSENT: distended, guarding, mass, organolmegaly, rebound, tenderness Rectal exam: PRESENT: deferred Extremities exam: PRESENT: full ROM. ABSENT: calf tenderness, clubbing, pedal edema Neurological exam: PRESENT: alert, awake, oriented to person, oriented to place, oriented to time, oriented to situation, CN II-XII grossly intact. ABSENT: motor sensory deficit Psychiatric exam: PRESENT: appropriate affect, normal mood. ABSENT: homicidal ideation, suicidal ideation Skin exam: PRESENT: dry, intact, warm. ABSENT: cyanosis, rash Results Laboratory Results: WBC 10.3 10^3/uL (4.0-10.5) 09/23/20 05:28 RBC 4.99 10^6/uL (4.35-5.55) 09/23/20 05:28 Hgb 13.1 g/dL (13.5-17.0) L 09/23/20 05:28 Hct 39.4 % (37.9-51.0) 09/23/20 05:28 MCV 79 fl (80-97) L 09/23/20 05:28 MCH 26.3 pg (27.0-33.4) L 09/23/20 05:28 MCHC 33.3 g/dL (32.0-36.0) 09/23/20 05:28 RDW 14.4 % (11.5-14.0) H 09/23/20 05:28 Plt Count 176 10^3/uL (150-450) 09/23/20 05:28 Lymph % (Auto) Not Reportable 09/23/20 05:28 [place] % (Auto) Not Reportable 09/23/20 05:28 Eos % (Auto) Not Reportable 09/23/20 05:28 Baso % (Auto) Not Reportable 09/23/20 05:28 Absolute Neuts (auto) Not Reportable 09/23/20 05:28 Absolute Lymphs (auto) Not Reportable 09/23/20 05:28 Absolute Monos (auto) Not Reportable 09/23/20 05:28 Absolute Eos (auto) Not Reportable 09/23/20 05:28 Absolute Basos (auto) Not Reportable 09/23/20 05:28 Total Counted 100 09/23/20 05:28 Seg Neutrophils % Not Reportable 09/23/20 05:28 Seg Neuts % (Manual) 68 % (42-78) 09/23/20 05:28 Band Neutrophils % 2 % (3-5) L 09/23/20 05:28 Lymphocytes % (Manual) 17 % (13-45) 09/23/20 05:28 Atypical Lymphs % 3 % (0) 09/22/20 06:42 Monocytes % (Manual) 13 % (3-13) 09/23/20 05:28 Eosinophils % (Manual) 0 % (0-6) 09/23/20 05:28 Basophils % (Manual) 0 % (0-2) 09/23/20 05:28 Abs Neuts (Manual) 7.2 10^3/uL (1.7-8.2) 09/23/20 05:28 Abs Lymphs (Manual) 1.8 10^3/uL (0.5-4.7) 09/23/20 05:28 Abs Monocytes (Manual) 1.3 10^3/uL (0.1-1.4) 09/23/20 05:28 Absolute Eos (Manual) 0.0 10^3/uL (0.0-0.6) 09/23/20 05:28 Abs Basophils (Manual) 0.0 10^3/uL (0.0-0.2) 09/23/20 05:28 Smudge Cells PRESENT 09/22/20 06:42 Platelet Estimate Cancelled 09/22/20 05:23 Platelet Comment ADEQUATE 09/23/20 05:28 Polychromasia SLIGHT 09/22/20 06:42 Hypochromasia SLIGHT 09/21/20 06:25 Poikilocytosis SLIGHT 09/22/20 06:42 Anisocytosis SLIGHT 09/22/20 06:42 Microcytosis SLIGHT 09/23/20 05:28 Ovalocytes SLIGHT 09/22/20 06:42 PT 13.2 SEC (11.4-15.4) 09/16/20 20:50 INR 0.98 09/16/20 20:50 APTT 28.4 SEC (23.5-35.8) 09/16/20 20:50 Sodium 132.4 mmol/L (137-145) L 09/23/20 05:28 Potassium 5.2 mmol/L (3.6-5.0) H 09/23/20 05:28 Chloride 99 mmol/L (98-107) 09/23/20 05:28 Carbon Dioxide 24 mmol/L (22-30) 09/23/20 05:28 Anion Gap 9 (5-19) 09/23/20 05:28 BUN 40 mg/dL (7-20) H 09/23/20 05:28 Creatinine 1.12 mg/dL (0.52-1.25) 09/23/20 05:28 Est GFR ( Amer) > 60 (>60) 09/23/20 05:28 Est GFR (MDRD) Non-Af > 60 (>60) 09/23/20 05:28 Glucose 279 mg/dL (75-110) H 09/23/20 05:28 POC Glucose 264 mg/dL (70-110) H 09/23/20 07:35 Calcium 9.0 mg/dL (8.4-10.2) 09/23/20 05:28 Total Bilirubin 0.5 mg/dL (0.2-1.3) 09/16/20 20:50 Direct Bilirubin 0.1 mg/dL (0.0-0.4) 09/16/20 20:50 Neonat Total Bilirubin Not Reportable 09/16/20 20:50 Neonat Direct Bilirubin Not Reportable 09/16/20 20:50 Neonat Indirect Bili Not Reportable 09/16/20 20:50 AST 30 U/L (17-59) 09/16/20 20:50 ALT 27 U/L (<50) 09/16/20 20:50 Alkaline Phosphatase 92 U/L (38-126) 09/16/20 20:50 Total Protein 7.7 g/dL (6.3-8.2) 09/16/20 20:50 Albumin 4.4 g/dL (3.5-5.0) 09/16/20 20:50 Urine Color YELLOW 09/16/20 21:10 Urine Appearance SLIGHTLY-CLOUDY 09/16/20 21:10 Urine pH 5.0 (5.0-9.0) 09/16/20 21:10 Ur Specific [place] 1.020 09/16/20 21:10 Urine Protein 100 mg/dL (NEGATIVE) H 09/16/20 21:10 Urine Glucose (UA) NEGATIVE mg/dL (NEGATIVE) 09/16/20 21:10 Urine Ketones NEGATIVE mg/dL (NEGATIVE) 09/16/20 21:10 Urine Blood MODERATE (NEGATIVE) H 09/16/20 21:10 Urine Nitrite NEGATIVE (NEGATIVE) 09/16/20 21:10 Urine Bilirubin NEGATIVE (NEGATIVE) 09/16/20 21:10 Urine Urobilinogen NEGATIVE mg/dL (<2.0) 09/16/20 21:10 Ur Leukocyte Esterase NEGATIVE (NEGATIVE) 09/16/20 21:10 Urine WBC (Auto) 1 /HPF 09/16/20 21:10 Urine RBC (Auto) 10 /HPF 09/16/20 21:10 U Hyaline Cast (Auto) 9 /LPF 09/16/20 21:10 Urine Mucus (Auto) OCC /LPF 09/16/20 21:10 Urine Ascorbic Acid NEGATIVE (NEGATIVE) 09/16/20 21:10 Slides for Path Review Cancelled 09/22/20 05:23 Blood Type O NEGATIVE 09/16/20 20:50 Antibody Screen NEGATIVE 09/16/20 20:50 Impressions: Head CT 09/16/20 22:42 IMPRESSION: No acute intracranial findings. Plan Time Spent: Greater than 30 Minutes - Following a 1 week with hematology and following a 1 week in office Stroke Is this a Stroke Patient?: No Acute Heart Failure Is this a Heart Failure Patient?: No
[2020-09-23] MEDS: PREDNISONE 10 MG TABLET PO SCH (09:42)
[2020-09-23] MEDS: TRAMADOL HCL 50 MG TABLET PO SCH (09:43)
[2020-09-23] MEDS: AMLODIPINE BESYLATE 10 MG TABLET PO SCH (09:43)
[2020-09-23] MEDS: FENOFIBRATE NANOCRYSTALLIZED 145 MG TABLET PO SCH (09:43)
[2020-09-23] MEDS: METOPROLOL TARTRATE 25 MG TABLET PO SCH (09:43)
[2020-09-23] MEDS: CETIRIZINE 5 MG TABLET PO SCH (09:43)
[2020-09-23] MEDS: INSULIN GLARGINE,HUM.REC.ANLOG 1,000 UNIT/10 ML VIAL SUBCUT SCH (09:44)
[2020-09-23] MEDS: FLUTICASONE/UMECLIDIN/VILANTER 100-62.5-25 MCG/DOSE IH SCH (09:45)
== END 2020-09-23 10:49 | disposition home health service (06) | DRG 813 ==
LOC: ER 18:59 → EH 23:05 → 3W 09-17 01:55
PROVIDERS: ADMIT Family Medicine; ATTEND Family Medicine
PROC: 30233R1 Transfusion of Nonautologous Platelets into Peripheral Vein, Percutaneous Approach (ICD-10-PCS; principal; 2020-09-17)
DX: D69.3 Immune thrombocytopenic purpura (principal); I12.9 Hypertensive chronic kidney disease with stage 1 through stage 4 chronic kidney disease, or unspecified chronic kidney disease; J44.9 Chronic obstructive pulmonary disease, unspecified; Z99.81 Dependence on supplemental oxygen; I25.10 Atherosclerotic heart disease of native coronary artery without angina pectoris; N40.0 Benign prostatic hyperplasia without lower urinary tract symptoms; M19.90 Unspecified osteoarthritis, unspecified site; E11.22 Type 2 diabetes mellitus with diabetic chronic kidney disease; R91.8 Other nonspecific abnormal finding of lung field; N18.9 Chronic kidney disease, unspecified; E78.5 Hyperlipidemia, unspecified; K21.9 Gastro-esophageal reflux disease without esophagitis; G47.30 Sleep apnea, unspecified; Z90.49 Acquired absence of other specified parts of digestive tract; Z79.899 Other long term (current) drug therapy; Z79.4 Long term (current) use of insulin; Z95.5 Presence of coronary angioplasty implant and graft; Z88.8 Allergy status to other drugs, medicaments and biological substances; Z82.49 Family history of ischemic heart disease and other diseases of the circulatory system; Z83.3 Family history of diabetes mellitus
CPT/HCPCS: 36415; 36430; 70450; 71046; 80048; 80053; 81001; 82962; 85025; 85610; 85730; 86850; 86900; 86901; 93005; 93010; 96374; 99285; J1815; J2930; J3490; J7030; J7512; P9035

== ENCOUNTER 2020-10-01 10:58 | Inpatient (IN) | payer MEDICARE, MEDICAID ==
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
[2020-10-01 12:46] LABS: INTERNATIONAL RATION (INR) 0.98; PROTHROMBIN TIME 13.2 SEC (11.4-15.4)
--- NOTE | 2020-10-01 12:46 | RADIOLOGY REPORT (SQ) ---
EXAM DESCRIPTION: CHEST SINGLE VIEW IMAGES COMPLETED DATE/TIME: 10/01/2020 12:21 pm REASON FOR STUDY: cough; shortness of breath COMPARISON: 09/16/2020 TECHNIQUE: Single frontal radiographic view of the chest acquired. NUMBER OF VIEWS: One view. LIMITATIONS: None. FINDINGS: LUNGS AND PLEURA: No pneumothorax. Increased airspace opacities in the left lung base. N o significant Pleural effusion. MEDIASTINUM AND HILAR STRUCTURES: Stable. HEART AND VASCULAR STRUCTURES: Stable. BONES: No acute findings. HARDWARE: None in the chest. OTHER: No other significant finding. IMPRESSION: Increased airspace opacities in the left lung base. TECHNICAL DOCUMENTATION: JOB ID: [id number] [id number] [employer]- All Rights Reserved Reading location - IP/workstation name: [email or web address]
[2020-10-01 12:47] LABS: PARTIAL THROMBOPLASTIN TIME 29.3 SEC (23.5-35.8)
[2020-10-01 12:54] LABS: HEMOGLOBIN 12.7 g/dL (13.5-17.0); MEAN CORPUSCULAR HEMOGLOBIN 26.3 pg (27.0-33.4); MEAN CORPUSCULAR HGB CONC 32.6 g/dL (32.0-36.0); MEAN CORPUSCULAR VOLUME 81 fl (80-97); PLATELET COUNT 319 10^3/uL (150-450); RED BLOOD COUNT 4.85 10^6/uL (4.35-5.55); RED CELL DISTRIBUTION WIDTH 14.7 % (11.5-14.0); WHITE BLOOD COUNT 11.3 10^3/uL (4.0-10.5)
[2020-10-01 12:58] LABS: ALBUMIN 3.4 g/dL (3.5-5.0); ALKALINE PHOSPHATASE 90 U/L (38-126); ANION GAP 8 (5-19); ASPARTATE AMINO TRANSFERASE 24 U/L (17-59); BILIRUBIN,DIRECT 0.1 mg/dL (0.0-0.4); BILIRUBIN,TOTAL 0.6 mg/dL (0.2-1.3); BLOOD UREA NITROGEN 40 mg/dL (7-20); CALCIUM 9.4 mg/dL (8.4-10.2); CARBON DIOXIDE 23 mmol/L (22-30); CHLORIDE 99 mmol/L (98-107); GLUCOSE 197 mg/dL (75-110); POTASSIUM 4.9 mmol/L (3.6-5.0); TOTAL PROTEIN 6.1 g/dL (6.3-8.2)
[2020-10-01 13:24] LABS: ARTERIAL BLOOD BASE EXCESS -2.1 mmol/L; ARTERIAL BLOOD FIO2 4L; ARTERIAL BLOOD H2CO3 0.95 mmol/L (1.05-1.35); ARTERIAL BLOOD HCO3 21.1 mmol/L (20-24); ARTERIAL BLOOD O2 SATURATION 96.2 % (94-98); ARTERIAL BLOOD PCO2 31.4 mmHg (35-45); ARTERIAL BLOOD PH 7.45 (7.35-7.45); ARTERIAL BLOOD PO2 78.2 mmHg (80-100); ARTERIAL BLOOD TOTAL CO2 22.1 mmol/L (23-27)
[2020-10-01 13:31] LABS: ABSOLUTE LYMPHOCYTES# (MANUAL) 1.1 10^3/uL (0.5-4.7); ABSOLUTE MONOCYTES # (MANUAL) 1.1 10^3/uL (0.1-1.4); BASOPHILS % (MANUAL) 0 % (0-2); EOSINOPHILS % (MANUAL) 1 % (0-6); LYMPHOCYTES % (MANUAL) 10 % (13-45); MONOCYTES % (MANUAL) 10 % (3-13); SEGMENTED NEUTROPHILS % (MAN) 79 % (42-78); TOTAL CELLS COUNTED 100
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
[2020-10-01 13:33] LABS: ANISOCYTOSIS SLIGHT; HYPOCHROMASIA SLIGHT; PLATELET COMMENT ADEQUATE
[2020-10-01] MEDS ORDERED: DEXAMETHASONE 4 MG TABLET PO ONE (13:33)
[2020-10-01] MEDS ORDERED: AZITHROMYCIN INJ 500 MG VIAL IV ONE ×2 (13:33→15:45)
[2020-10-01] MEDS ORDERED: CEFTRIAXONE 1 GM/D5W RTU 1 GM/50 ML RTUPB IV ONE (13:33)
[2020-10-01] MEDS ORDERED: NORMAL SALINE 1000 ML 500 ML IV ONE (14:08)
[2020-10-01] MEDS ORDERED: DEXTROSE 50%-WATER 25 GM/50 ML DISP.SYRIN IV PRN ×2 (18:44)
[2020-10-01] MEDS ORDERED: DEXTROSE 40% GEL 15 GM TUBE PO PRN ×2 (18:44)
[2020-10-01] MEDS ORDERED: GLUCAGON,HUMAN RECOMB 1 MG INJ IM PRN (18:44)
[2020-10-01] MEDS ORDERED: ALBUTEROL SULFATE HFA (90 MCG/PUFF) 8 GM MDI IH PRN (18:51)
--- NOTE | 2020-10-01 19:24 | PDOC H&P ---
History of Present Illness Admission Date/PCP: 10/01/20 15:17 MILLIE GEIGER MD Patient complains of: Fever History of Present Illness: TAHIR FOURNIER is a 64 year old male of Dr Millie Geiger who was discharged from this hospital recently following concern for ITP with thrombocytopenia. His spouse reported temperature of 101.4F this morning and she was instructed to bring the patient to the ED.There was associated productive cough and history of COPD with need for supplemental oxygen. He denied any chest pain, palpitation, nausea, vomiting, or abdominal pain. He denied any flank pain, hematuria, or urinary frequency. His initial evaluation in the ED was significant for left basal air space disease process with leukocytosis and left shift. He was advised hospitalization for further evaluation and management. His morbidities are as listed below. Past Medical History Cardiac Medical History: Reports: Coronary Artery Disease - CARDIAC STENTS X5, Hyperlipidema, Hypertension Denies: Atrial Fibrillation, Congestive Heart Failure, Myocardial Infarction, Peripheral Vascular Disease, Pulmonary Embolism Pulmonary Medical History: Reports: Asthma, Bronchitis, Chronic Obstructive Pulmonary Disease (COPD), Pneumonia, Sleep Apnea Denies: Respiratory Failure, Tuberculosis Neurological Medical History: Denies: Seizures Endocrine Medical History: Reports: Diabetes Mellitus Type 1, Diabetes Mellitus Type 2 Denies: Hyperthyroidism, Hypothyroidism Renal/ Medical History: Denies: End Stage Renal Disease Malignancy Medical History: Denies: Leukemia, Lung Cancer GI Medical History: Reports: Gastroesophageal Reflux Disease, Hiatal Hernia Denies: Crohn's Disease Musculoskeltal Medical History: Reports: Arthritis - bursitis left shoulder, back bone spurs Denies: Fibromyalgia Psychiatric Medical History: Denies: Bipolar Disorder, Dementia, Depression, Post Traumatic Stress Disorder Hematology: Reports: Anemia Infectious Medical History: Denies: HIV Past Surgical History Past Surgical History: Reports: Cardiac Catheterization - 5 stents, Cholecystectomy, Coronary Stent - X5, Orthopedic Surgery - right leg, back surgery, Tonsillectomy Denies: Appendectomy, Colostomy, Coronary Artery Bypass Graft, Gastric Bypass Surgery, Herniorrhaphy, Pacemaker Social History Smoking Status: Former Smoker Frequency of Alcohol Use: None Hx Recreational Drug Use: No Drugs: None Hx Prescription Drug Abuse: No - Advance Directive Resuscitation Status: Full Code Family History Family History: Arthritis, CAD, CVA, DM, Hyperlipidemia, Hypertension, Malignancy Parental Family History Reviewed: Yes Children Family History Reviewed: Yes Sibling(s) Family History Reviewed.: Yes Medication/Allergy Home Medications: Amlodipine Besylate [Norvasc 10 mg Tablet] 10 mg PO DAILY 12/24/19 Atorvastatin Calcium [Lipitor 40 mg Tablet] 40 mg PO QHS 12/24/19 Fluticasone/Umeclidin/Vilanter [Trelegy 100-62.5-25 Mcg Ellipta 14 Dose/Dpi] 1 puff IH DAILY 12/24/19 Levocetirizine Dihydrochloride [Xyzal] 5 mg PO DAILY 12/24/19 Metoprolol Tartrate [Lopressor 25 mg Tablet] 25 mg PO Q12 12/24/19 Montelukast Sodium [Singulair 10 mg Tablet] 10 mg PO QPM 12/24/19 Omeprazole 40 mg PO BID 12/24/19 Tamsulosin HCl [Flomax 0.4 mg Cap.sr] 0.4 mg PO QPM 12/24/19 Benzonatate [Tessalon Perles 100 mg Capsule] 300 mg PO Q4HP PRN 09/17/20 Fenofibrate Nanocrystallized [Fenofibrate] 145 mg PO DAILY 09/17/20 Insulin Glargine,Hum.rec.anlog [Lantus Insulin 100 Unit/1 ml 10 ml] 30 unit SUBCUT QHS 09/17/20 Insulin Regular, Human [Humulin R (Reg) Insulin 100 unit/mL] 0 unit SUBCUT .SLIDING SCALE 09/17/20 Nitroglycerin [Nitrostat 0.4 mg (1/150 Gr) Tabs 25/Bottle] 1 tab SL Q5MP PRN 09/17/20 Tiotropium Br/Olodaterol HCl [Stiolto Respimat Inhal [place]] 2 puff IH DAILY 09/17/20 Tramadol HCl [Ultram 50 mg Tablet] 50 mg PO QID 09/17/20 Prednisone 10 mg PO DAILY #200 tablet 09/23/20 Allergies/Adverse Reactions: clopidogrel bisulfate [From Plavix] Adverse Reaction (Severe, Verified 10/01/20 11:29) bleeding from ear/NOSE Review of Systems Constitutional: PRESENT: fever(s). ABSENT: chills, headache(s) Eyes: ABSENT: visual disturbances Ears: ABSENT: hearing changes Cardiovascular: PRESENT: dyspnea on exertion. ABSENT: chest pain, edema, orthropnea, palpitations Respiratory: PRESENT: cough, dyspnea. ABSENT: hemoptysis Gastrointestinal: ABSENT: abdominal pain, constipation, diarrhea, hematemesis, hematochezia, nausea, vomiting Genitourinary: ABSENT: dysuria, hematuria Musculoskeletal: ABSENT: joint swelling Integumentary: ABSENT: rash, wounds Neurological: ABSENT: abnormal gait, abnormal speech, confusion, dizziness, focal weakness, syncope Psychiatric: ABSENT: anxiety, depression, homidical ideation, suicidal ideation Endocrine: ABSENT: cold intolerance, heat intolerance, menstrual abnormalities, polydipsia, polyuria Hematologic/Lymphatic: ABSENT: easy bleeding, easy bruising, lymphadenopathy Allergic/Immunologic: ABSENT: seasonal rhinorrhea Physical Exam Vital Signs: Temp Pulse Resp BP Pulse Ox 98 F 64 19 113/60 92 10/01/20 17:50 10/01/20 17:50 10/01/20 17:50 10/01/20 17:50 10/01/20 17:50 Intake & Output 09/30/20 10/01/20 10/02/20 06:59 06:59 06:59 Intake Total 550 Balance 550 Weight 87.6 kg General appearance: PRESENT: mild distress - on supplemental oxygen via nasal cannula Head exam: PRESENT: atraumatic, normocephalic Eye exam: PRESENT: conjunctiva pink, EOMI, PERRLA. ABSENT: scleral icterus Ear exam: PRESENT: normal external ear exam Mouth exam: PRESENT: moist, neck supple Respiratory exam: PRESENT: decreased breath sounds - at lung bases Cardiovascular exam: PRESENT: RRR, +S1, +S2. ABSENT: diastolic murmur, rubs, systolic murmur Vascular exam: ABSENT: pallor GI/Abdominal exam: PRESENT: normal bowel sounds, soft. ABSENT: tenderness Rectal exam: PRESENT: deferred Extremities exam: ABSENT: pedal edema Musculoskeletal exam: PRESENT: normal inspection Neurological exam: PRESENT: alert, awake, oriented to person, oriented to place, oriented to time, oriented to situation, CN II-XII grossly intact. ABSENT: motor sensory deficit Psychiatric exam: PRESENT: appropriate affect, normal mood. ABSENT: homicidal ideation, suicidal ideation Skin exam: PRESENT: dry, warm Results Laboratory Results: 10/01/20 12:08 10/01/20 12:08 10/01/20 10/01/20 10/01/20 12:03 12:08 12:08 WBC 11.3 H RBC 4.85 Hgb 12.7 L Hct 39.0 MCV 81 MCH 26.3 L MCHC 32.6 RDW 14.7 H Plt Count 319 Seg Neutrophils % Not Reportable Carbonic Acid HCO3/H2CO3 Ratio ABG pH ABG pCO2 ABG pO2 ABG HCO3 ABG O2 Saturation ABG Base Excess FiO2 Sodium 130.2 L Potassium 4.9 Chloride 99 Carbon Dioxide 23 Anion Gap 8 BUN 40 H Creatinine 1.32 H Est GFR ( Amer) > 60 Glucose 197 H Lactic Acid 0.8 Calcium 9.4 Total Bilirubin 0.6 AST 24 Alkaline Phosphatase 90 Total Protein 6.1 L Albumin 3.4 L 10/01/20 12:55 WBC RBC Hgb Hct MCV MCH MCHC RDW Plt Count Seg Neutrophils % Carbonic Acid 0.95 L HCO3/H2CO3 Ratio 22:1 ABG pH 7.45 ABG pCO2 31.4 L ABG pO2 78.2 L ABG HCO3 21.1 ABG O2 Saturation 96.2 ABG Base Excess -2.1 FiO2 4L Sodium Potassium Chloride Carbon Dioxide Anion Gap BUN Creatinine Est GFR ( Amer) Glucose Lactic Acid Calcium Total Bilirubin AST Alkaline Phosphatase Total Protein Albumin Impressions: Chest X-Ray 10/01/20 11:33 IMPRESSION: Increased airspace opacities in the left lung base. Assessment & Plan - Diagnosis (1) Left lower lobe pneumonia Qualifiers: Pneumonia type: due to unspecified organism Qualified Code(s): J18.9 - Pneumonia, unspecified organism Is this a current diagnosis for this admission?: Yes Plan: See covering attending physician orders for details about care plan. (2) COPD (chronic obstructive pulmonary disease) Qualifiers: COPD type: chronic bronchitis Is this a current diagnosis for this admission?: Yes Plan: See covering attending physician orders for details about care plan. (3) Type 2 diabetes mellitus Qualifiers: Diabetes mellitus senior living insulin use: unspecified senior living insulin use status Diabetes mellitus complication status: without complication Qualified Code(s): E11.9 - Type 2 diabetes mellitus without complications Is this a current diagnosis for this admission?: Yes Plan: See covering attending physician orders for details about care plan. (4) Hypertension Qualifiers: Hypertension type: essential hypertension Is this a current diagnosis for this admission?: Yes Plan: See covering attending physician orders for details about care plan. (5) Coronary artery disease Qualifiers: Coronary Disease-Associated Artery/Lesion type: [place] artery Associated angina: without angina Is this a current diagnosis for this admission?: Yes Plan: See covering attending physician orders for details about care plan. (6) Hyperlipidemia Qualifiers: Hyperlipidemia type: unspecified Qualified Code(s): E78.5 - Hyperlipidemia, unspecified Is this a current diagnosis for this admission?: Yes Plan: See covering attending physician orders for details about care plan. - Time Time Spent: 50 to 70 Minutes Medications reviewed and adjusted accordingly: Yes Anticipated Discharge Disposition: Home with Home Health Anticipated Discharge Timeframe: within 72 hours - Inpatient Certification Based on my medical assessment, after consideration of the patient's comorbidities, presenting symptoms, or acuity I expect that the services needed warrant INPATIENT care.: Yes I certify that my determination is in accordance with my understanding of Medicare's requirements for reasonable and necessary INPATIENT services [42 CFR 412.3e].: Yes Medical Necessity: Significant Comorbidiites Make Outpatient Treatment Too Risky, Need Close Monitoring Due to Risk of Patient Decompensation, Need For IV Fluids, Need For Continuous Telemetry Monitoring, Need for IV Antibiotics, Risk of Complication if Not Cared For in Hospital, Risk of Diagnosis Which Will Require Inpatient Eval/Care/Monitoring Post Hospital Care: D/C Camp Manager Documentation - Plan Summary Plan Summary: See covering attending physician orders for details about care plan.
--- NOTE | 2020-10-01 21:01 | EKG REPORT ---
SEVERITY:- NORMAL ECG - SINUS RHYTHM : Confirmed by: Sushma Washington MD 01-Oct-2020 21:00:47
[2020-10-01] MEDS: DEXAMETHASONE SOD PHOS INJ 10 MG/1 ML VIAL IV SCH (22:41)
[2020-10-01] MEDS: INSULIN LISPRO 100 UNIT/ML 3 ML VIAL SUBCUT SCH (22:41)
[2020-10-02] MEDS: DEXAMETHASONE SOD PHOS INJ 10 MG/1 ML VIAL IV SCH ×3 (05:28→21:57)
[2020-10-02] MEDS: PANTOPRAZOLE SODIUM 40 MG TABLET.DR PO SCH (05:28)
[2020-10-02] MEDS: NORMAL SALINE 1000 ML 1,000 ML IV PRN ×2 (06:17→18:58)
[2020-10-02 06:42] LABS: ABSOLUTE LYMPHOCYTES (AUTO) 0.5 10^3/uL (0.5-4.7); ABSOLUTE MONOCYTES (AUTO) 0.5 10^3/uL (0.1-1.4); ABSOLUTE NEUT (AUTO) 6.3 10^3/uL (1.7-8.2); BASOPHILS % (AUTO) 0.2 % (0-2); HEMATOCRIT 39.5 % (37.9-51.0); LYMPHOCYTES % (AUTO) 7.3 % (13-45); MEAN CORPUSCULAR HEMOGLOBIN 26.3 pg (27.0-33.4); MEAN CORPUSCULAR HGB CONC 32.8 g/dL (32.0-36.0); MEAN CORPUSCULAR VOLUME 80 fl (80-97); MONOCYTES % (AUTO) 7.4 % (3-13); PLATELET COUNT 274 10^3/uL (150-450); RED BLOOD COUNT 4.92 10^6/uL (4.35-5.55); RED CELL DISTRIBUTION WIDTH 14.7 % (11.5-14.0); SEGMENTED NEUTROPHILS % (AUTO) 85.1 % (42-78); TOTAL CELLS COUNTED % (AUTO) 100 %; WHITE BLOOD COUNT 7.4 10^3/uL (4.0-10.5)
[2020-10-02] MEDS ORDERED: ALBUTEROL SULFATE HFA (90 MCG/PUFF) 8 GM MDI IH PRN (07:02)
[2020-10-02 07:17] LABS: ALBUMIN 3.2 g/dL (3.5-5.0); ALKALINE PHOSPHATASE 78 U/L (38-126); ANION GAP 13 (5-19); ASPARTATE AMINO TRANSFERASE 20 U/L (17-59); BILIRUBIN,DIRECT 0.2 mg/dL (0.0-0.4); BILIRUBIN,TOTAL 0.5 mg/dL (0.2-1.3); BLOOD UREA NITROGEN 38 mg/dL (7-20); CARBON DIOXIDE 20 mmol/L (22-30); CHLORIDE 99 mmol/L (98-107); GLUCOSE 358 mg/dL (75-110); TOTAL PROTEIN 5.9 g/dL (6.3-8.2)
[2020-10-02] MEDS: INSULIN LISPRO 100 UNIT/ML 3 ML VIAL SUBCUT SCH ×4 (07:55→21:57)
[2020-10-02] MEDS: ENOXAPARIN SODIUM INJ 40 MG/0.4 ML DISP.SYRIN SUBCUT SCH (11:20)
[2020-10-02] MEDS: CEFTRIAXONE 1 GM/D5W RTU 1 GM/50 ML RTUPB IV SCH (11:22)
[2020-10-02] MEDS: AZITHROMYCIN 500 MG in DEXTROSE 5%-WATER 250 ML IV SCH (12:13)
[2020-10-02] MEDS ORDERED: NITROGLYCERIN 0.4 MG/TAB 25 TAB/BOTTLE SL PRN (20:13)
--- NOTE | 2020-10-02 21:41 | PDOC PROGRESS REPORT ---
Subjective Date:: 10/02/20 Subjective:: Patient denied any chest pain. Breathing is satisfactory. Blood pressure has bee n gradually elevated. Request for Trilogy usage. Reason For Visit: LEFT LOWER LOBE PNEUMONIA;EXACERBATED COPD,PUI FOR Physical Exam Vital Signs: Temp Pulse Resp BP Pulse Ox 98.6 F 68 19 138/59 H 94 10/02/20 16:22 10/02/20 16:22 10/02/20 16:22 10/02/20 16:22 10/02/20 16:22 Intake & Output 10/01/20 10/02/20 10/03/20 06:59 06:59 06:59 Intake Total 550 2874 Output Total 1435 Balance 550 1439 Weight 85.1 kg General appearance: PRESENT: no acute distress Head exam: PRESENT: atraumatic, normocephalic Eye exam: PRESENT: conjunctiva pink. ABSENT: scleral icterus Respiratory exam: PRESENT: clear to auscultation raya, decreased breath sounds - at lung bases Cardiovascular exam: PRESENT: RRR, +S1, +S2. ABSENT: diastolic murmur, rubs, systolic murmur Vascular exam: ABSENT: pallor GI/Abdominal exam: PRESENT: normal bowel sounds, soft Extremities exam: ABSENT: pedal edema Neurological exam: PRESENT: alert, awake Psychiatric exam: ABSENT: agitated, anxious Skin exam: PRESENT: dry, warm Results Laboratory Results: 10/02/20 06:25 10/02/20 06:25 10/02/20 10/02/20 06:25 06:25 WBC 7.4 RBC 4.92 Hgb 13.0 L Hct 39.5 MCV 80 MCH 26.3 L MCHC 32.8 RDW 14.7 H Plt Count 274 Seg Neutrophils % 85.1 H Sodium 131.9 L Potassium 5.0 Chloride 99 Carbon Dioxide 20 L Anion Gap 13 BUN 38 H Creatinine 1.11 Est GFR ( Amer) > 60 Glucose 358 H Calcium 9.0 Magnesium 2.0 Total Bilirubin 0.5 AST 20 Alkaline Phosphatase 78 Total Protein 5.9 L Albumin 3.2 L Impressions: Chest X-Ray 10/01/20 11:33 IMPRESSION: Increased airspace opacities in the left lung base. Assessment & Plan - Diagnosis (1) Left lower lobe pneumonia Qualifiers: Pneumonia type: due to unspecified organism Qualified Code(s): J18.9 - Pneumonia, unspecified organism Is this a current diagnosis for this admission?: Yes (2) COPD (chronic obstructive pulmonary disease) Qualifiers: COPD type: chronic bronchitis Is this a current diagnosis for this admission?: Yes (3) Type 2 diabetes mellitus Qualifiers: Diabetes mellitus fdc insulin use: unspecified intermission coordinator insulin use status Diabetes mellitus complication status: without complication Qualified Code(s): E11.9 - Type 2 diabetes mellitus without complications Is this a current diagnosis for this admission?: Yes (4) Hypertension Qualifiers: Hypertension type: essential hypertension Qualified Code(s): I10 - Essential (primary) hypertension Is this a current diagnosis for this admission?: Yes (5) Coronary artery disease Qualifiers: Coronary Disease-Associated Artery/Lesion type: [place] artery Associated angina: without angina Is this a current diagnosis for this admission?: Yes (6) Hyperlipidemia Qualifiers: Hyperlipidemia type: unspecified Qualified Code(s): E78.5 - Hyperlipidemia, unspecified Is this a current diagnosis for this admission?: Yes - Time Time Spent with patient: 25-34 minutes Level of Care: IMCU Anticipated discharge: Home with Homehealth Anticipated DC Timeframe: within 72 hours - Inpatient Certification Based on my medical assessment, after consideration of the patient's comorbidities, presenting symptoms, or acuity I expect that the services needed warrant INPATIENT care.: Yes I certify that my determination is in accordance with my understanding of Medicare's requirements for reasonable and necessary INPATIENT services [42 CFR 412.3e].: Yes Medical Necessity: Significant Comorbidiites Make Outpatient Treatment Too Risky, Need Close Monitoring Due to Risk of Patient Decompensation, Need For IV Fluids, Need For Continuous Telemetry Monitoring, Need for IV Antibiotics, Risk of Complication if Not Cared For in Hospital, Risk of Diagnosis Which Will Require Inpatient Eval/Care/Monitoring Post Hospital Care: D/C Shake Loader Documentation - Plan Summary Plan Summary: Continue current medication management. Patient will restart some of his home medication for elevated blood pressure. His Dexamethasone and Albuterol inhaler will address his concern regarding COPD management while awaiting his COVID-19 test result.
[2020-10-02] MEDS ORDERED: INSULIN GLARGINE,HUM.REC.ANLOG 1,000 UNIT/10 ML VIAL (PYX) SUBCUT ONE (21:50)
[2020-10-02] MEDS: ATORVASTATIN CALCIUM 40 MG TABLET PO SCH (21:57)
[2020-10-02] MEDS: AMLODIPINE BESYLATE 10 MG TABLET PO SCH (21:57)
[2020-10-02] MEDS ORDERED: INSULIN GLARGINE,HUM.REC.ANLOG 1,000 UNIT/10 ML VIAL SUBCUT SCH (22:00)
[2020-10-03] MEDS: DEXAMETHASONE SOD PHOS INJ 10 MG/1 ML VIAL IV SCH (05:04)
[2020-10-03] MEDS: NORMAL SALINE 1000 ML 1,000 ML IV PRN ×2 (05:05→11:11)
[2020-10-03] MEDS: PANTOPRAZOLE SODIUM 40 MG TABLET.DR PO SCH (05:05)
[2020-10-03] MEDS: INSULIN LISPRO 100 UNIT/ML 3 ML VIAL SUBCUT SCH ×8 (07:55→21:17)
[2020-10-03] MEDS ORDERED: DEXAMETHASONE SOD PHOS INJ 10 MG/1 ML VIAL IV SCH (10:00)
--- NOTE | 2020-10-03 10:33 | RADIOLOGY REPORT (SQ) ---
EXAM DESCRIPTION: CT CHEST WITHOUT IMAGES COMPLETED DATE/TIME: 10/03/2020 10:16 am REASON FOR STUDY: SOB COMPARISON: PET-CT dated 08/16/2020, prior CT chest dated 08/02/2020 TECHNIQUE: CT scan performed of the chest without intravenous contrast. Images reviewed with lung, soft tissue and bone windows. Reconstructed coronal and sagittal MPR images reviewed. All images st ored on PACS. All CT scanners at this facility use dose modulation, iterative reconstruction, and/or weight based d osing when appropriate to reduce radiation dose to as low as reasonably achievable (ALARA). [facility]: Dose Right [facility]: CareDose [facility]: Dose Right [facility]: Teradose 4D [facility]: Infor RADIATION DOSE: CT Rad equipment meets quality standard of care and radiation dose reduction techniq ues were employed. CTDIvol: 11.7 mGy. DLP: 439 mGy-cm. mGy. LIMITATIONS: No technical limitations. FINDINGS: LUNGS AND PLEURA: Extensive bilateral upper and lower lobe airspace disease is now present . This is most marked in the subpleural locations although there is central airspace disease as well . The 2 cm pulmonary nodule previously described is no longer identified. Fairly extensive bronchie ctasis is is now present increased from July. No pleural effusions. No pneumothorax. HILAR AND MEDIASTINAL STRUCTURES: No pathologic adenopathy. HEART AND VASCULAR STRUCTURES: No aneurysm. No pericardial effusion. UPPER ABDOMEN: No significant findings. Limited exam. THYROID AND OTHER SOFT TISSUES: No masses. No adenopathy. BONES: No significant finding. HARDWARE: None in the chest. OTHER: No other significant findings. IMPRESSION: There has been a significant increase in bilateral airspace disease. There is involveme nt of both the upper and lower lobes. Changes are more prominent in the lung periphery. There are a reas of ground-glass opacity with surrounding dense consolidation. There is bronchiectasis. Pulmona ry nodule previously described is no longer identified and most likely was related to infectious or i nflammatory process. TECHNICAL DOCUMENTATION: JOB ID: [id number] Quality ID # [id number]: Final reports with documentation of one or more dose reduction techniques (e.g., Au tomated exposure control, adjustment of the mA and/or kV according to patient size, use of iterative reconstruction technique) 2010 [employer]- All Rights Reserved Reading location - IP[facility]workstation name: [facility]
[2020-10-03] MEDS ORDERED: INSULIN LISPRO 100 UNIT/ML 3 ML VIAL SUBCUT SCH (11:00)
[2020-10-03] MEDS: FENOFIBRATE NANOCRYSTALLIZED 145 MG TABLET PO SCH (11:07)
[2020-10-03] MEDS: DEXAMETHASONE SOD PHOSPHATE INJ 4 MG/1 ML VIAL IV SCH ×2 (11:07→21:07)
[2020-10-03] MEDS: AMLODIPINE BESYLATE 10 MG TABLET PO SCH (11:07)
[2020-10-03] MEDS: ENOXAPARIN SODIUM INJ 40 MG/0.4 ML DISP.SYRIN SUBCUT SCH (11:07)
[2020-10-03] MEDS: CEFTRIAXONE 1 GM/D5W RTU 1 GM/50 ML RTUPB IV SCH (11:08)
[2020-10-03] MEDS: FLUTICASONE/UMECLIDIN/VILANTER 100-62.5-25 MCG/DOSE IH SCH (11:09)
[2020-10-03] MEDS ORDERED: REMDESIVIR 200 MG in NORMAL SALINE 250 ML IV ONE (12:00)
[2020-10-03] MEDS: AZITHROMYCIN 500 MG in DEXTROSE 5%-WATER 250 ML IV SCH (12:06)
--- NOTE | 2020-10-03 13:07 | PDOC PROGRESS REPORT ---
Subjective Date:: 10/03/20 Subjective:: Patient is currently doing fair Patient was admitting in the Covid pneumonia Patient currently on a [address] of the chest consistent with the Covid pneumonia As per discussed with the analytical strategist consider dexamethasone 6 mg daily for thrombocytopenia it is okay Reason For Visit: LEFT LOWER LOBE PNEUMONIA;EXACERBATED COPD,PUI FOR Physical Exam Vital Signs: Temp Pulse Resp BP Pulse Ox 99.1 F 72 23 H 131/67 H 97 10/03/20 08:58 10/03/20 07:30 10/03/20 07:30 10/03/20 07:30 10/03/20 09:32 Pulse Oximeter Continuous Start: 10/03/20 08:46 Freq: RTQ4 Status: Active Protocol: Document 10/03/20 09:32 [facility] (Rec: 10/03/20 09:33 [facility] [email or web address]) Pulse Oximetry Assessment Oxygen Saturation (92-100) 97 Oxygen Flow Rate (L/min) 5 Oxygen Delivery Method Nasal Cannula Equipment Usage Equipment Standby Continuous SpO2 Machine # - Additional RT Notes Other Patient is positive for covid and on dickson with pulse oximetry reading continous. Intake & Output 10/02/20 10/03/20 10/04/20 06:59 06:59 06:59 Intake Total 550 4644 825 Output Total 2760 Balance 550 1884 825 Weight 85.1 kg 86.7 kg General appearance: PRESENT: no acute distress Eye exam: PRESENT: PERRLA Mouth exam: PRESENT: neck supple Respiratory exam: PRESENT: decreased breath sounds Cardiovascular exam: PRESENT: +S1, +S2 GI/Abdominal exam: PRESENT: normal bowel sounds, soft Neurological exam: PRESENT: alert, awake, oriented to person, oriented to place, oriented to time, oriented to situation, CN II-XII grossly intact Skin exam: PRESENT: dry Results Laboratory Results: 10/02/20 06:25 10/02/20 06:25 Impressions: Chest X-Ray 10/01/20 11:33 IMPRESSION: Increased airspace opacities in the left lung base. Chest CT 10/03/20 08:46 IMPRESSION: There has been a significant increase in bilateral airspace disease. There is involvement of both the upper and lower lobes. Changes are more prominent in the lung periphery. There are areas of ground-glass opacity with surrounding dense consolidation. There is bronchiectasis. Pulmonary nodule previously described is no longer identified and most likely was related to infectious or inflammatory process. Assessment & Plan - Diagnosis (1) Pneumonia due to 2019-nCoV Is this a current diagnosis for this admission?: Yes (2) Hyperlipidemia Qualifiers: Hyperlipidemia type: unspecified Qualified Code(s): E78.5 - Hyperlipidemia, unspecified Is this a current diagnosis for this admission?: Yes (3) Hypertension Qualifiers: Hypertension type: essential hypertension Qualified Code(s): I10 - Essential (primary) hypertension Is this a current diagnosis for this admission?: Yes (4) Severe thrombocytopenia Is this a current diagnosis for this admission?: Yes (5) Sleep apnea syndrome Qualifiers: Sleep apnea type: unspecified type Is this a current diagnosis for this admission?: Yes (6) Type 2 diabetes mellitus Qualifiers: Diabetes mellitus intermediate insulin use: unspecified intermediate insulin use status Diabetes mellitus complication status: without complication Qualified Code(s): E11.9 - Type 2 diabetes mellitus without complications Is this a current diagnosis for this admission?: Yes - Time Time Spent with patient: 15-24 minutes Level of Care: IMCU Medications reviewed and adjusted accordingly: Yes Anticipated discharge: Other Anticipated DC Timeframe: Other - Inpatient Certification Based on my medical assessment, after consideration of the patient's comorbidities, presenting symptoms, or acuity I expect that the services needed warrant INPATIENT care.: Yes I certify that my determination is in accordance with my understanding of Medicare's requirements for reasonable and necessary INPATIENT services [42 CFR 412.3e].: Yes Medical Necessity: Significant Comorbidiites Make Outpatient Treatment Too Risky, Need Close Monitoring Due to Risk of Patient Decompensation Post Hospital Care: D/C Development Vice President Documentation - Plan Summary Plan Summary: Continues to current medications
[2020-10-03] MEDS ORDERED: BENZONATATE 100 MG CAPSULE PO SCH (14:00)
[2020-10-03] MEDS: TAMSULOSIN HCL 0.4 MG CAP.SR.24H PO SCH (17:42)
[2020-10-03] MEDS: ATORVASTATIN CALCIUM 40 MG TABLET PO SCH (21:07)
[2020-10-03] MEDS: CEFEPIME 1 GM/D5W RTU 1 GM/50 ML RTUPB IV SCH (21:07)
[2020-10-03] MEDS: BENZONATATE 100 MG CAPSULE PO SCH (21:07)
[2020-10-03] MEDS: INSULIN GLARGINE,HUM.REC.ANLOG 1,000 UNIT/10 ML VIAL SUBCUT SCH (21:18)
[2020-10-03] MEDS ORDERED: INSULIN GLARGINE,HUM.REC.ANLOG 1,000 UNIT/10 ML VIAL SUBCUT SCH (22:00)
[2020-10-04] MEDS: MELATONIN 5 MG TABLET PO PRN (00:59)
[2020-10-04] MEDS: ACETAMINOPHEN 325 MG TABLET PO PRN ×2 (00:59→21:20)
[2020-10-04] MEDS: NORMAL SALINE 1000 ML 1,000 ML IV PRN (05:20)
[2020-10-04] MEDS: PANTOPRAZOLE SODIUM 40 MG TABLET.DR PO SCH (05:23)
[2020-10-04 06:31] LABS: ABSOLUTE LYMPHOCYTES (AUTO) 0.5 10^3/uL (0.5-4.7); ABSOLUTE MONOCYTES (AUTO) 0.4 10^3/uL (0.1-1.4); ABSOLUTE NEUT (AUTO) 7.1 10^3/uL (1.7-8.2); BASOPHILS % (AUTO) 0.1 % (0-2); HEMATOCRIT 36.4 % (37.9-51.0); HEMOGLOBIN 11.9 g/dL (13.5-17.0); LYMPHOCYTES % (AUTO) 6.8 % (13-45); MEAN CORPUSCULAR HEMOGLOBIN 26.1 pg (27.0-33.4); MEAN CORPUSCULAR HGB CONC 32.8 g/dL (32.0-36.0); MEAN CORPUSCULAR VOLUME 80 fl (80-97); PLATELET COUNT 268 10^3/uL (150-450); RED BLOOD COUNT 4.56 10^6/uL (4.35-5.55); RED CELL DISTRIBUTION WIDTH 14.4 % (11.5-14.0); SEGMENTED NEUTROPHILS % (AUTO) 88.1 % (42-78); TOTAL CELLS COUNTED % (AUTO) 100 %; WHITE BLOOD COUNT 8.1 10^3/uL (4.0-10.5)
[2020-10-04 06:53] LABS: ANION GAP 8 (5-19); BLOOD UREA NITROGEN 31 mg/dL (7-20); CALCIUM 8.9 mg/dL (8.4-10.2); CARBON DIOXIDE 23 mmol/L (22-30); CHLORIDE 102 mmol/L (98-107); GLUCOSE 159 mg/dL (75-110); POTASSIUM 4.9 mmol/L (3.6-5.0)
[2020-10-04] MEDS: INSULIN LISPRO 100 UNIT/ML 3 ML VIAL SUBCUT SCH ×7 (08:20→21:19)
[2020-10-04 09:19] LABS: ARTERIAL BLOOD BASE EXCESS 0 mmol/L; ARTERIAL BLOOD FIO2 90%; ARTERIAL BLOOD H2CO3 1.19 mmol/L (1.05-1.35); ARTERIAL BLOOD HCO3 24.5 mmol/L (20-24); ARTERIAL BLOOD O2 SATURATION 95.4 % (94-98); ARTERIAL BLOOD PCO2 39.5 mmHg (35-45); ARTERIAL BLOOD PH 7.41 (7.35-7.45); ARTERIAL BLOOD PO2 76.2 mmHg (80-100); ARTERIAL BLOOD TOTAL CO2 25.7 mmol/L (23-27)
[2020-10-04] MEDS: AMLODIPINE BESYLATE 10 MG TABLET PO SCH (09:40)
[2020-10-04] MEDS: ENOXAPARIN SODIUM INJ 40 MG/0.4 ML DISP.SYRIN SUBCUT SCH (09:40)
[2020-10-04] MEDS: DEXAMETHASONE SOD PHOSPHATE INJ 4 MG/1 ML VIAL IV SCH ×2 (09:40→21:18)
[2020-10-04] MEDS: BENZONATATE 100 MG CAPSULE PO SCH ×2 (09:40→21:18)
[2020-10-04] MEDS: FENOFIBRATE NANOCRYSTALLIZED 145 MG TABLET PO SCH (09:40)
[2020-10-04] MEDS: FLUTICASONE/UMECLIDIN/VILANTER 100-62.5-25 MCG/DOSE IH SCH (09:41)
[2020-10-04] MEDS: CEFEPIME 1 GM/D5W RTU 1 GM/50 ML RTUPB IV SCH ×2 (09:41→21:18)
[2020-10-04] MEDS: REMDESIVIR 100 MG in NORMAL SALINE 250 ML IV SCH (10:24)
--- NOTE | 2020-10-04 12:08 | PDOC PROGRESS REPORT ---
Subjective Date:: 10/04/20 Subjective:: Patient is currently doing fair Patient is to require BiPAP overnight current ABG pH was stable currently doing well patient normally uses CPAP Denied any chest pain Reason For Visit: LEFT LOWER LOBE PNEUMONIA;EXACERBATED COPD,PUI FOR Physical Exam Vital Signs: Temp Pulse Resp BP Pulse Ox 98.8 F 63 23 H 145/72 H 95 10/04/20 07:56 10/04/20 07:07 10/04/20 08:50 10/04/20 07:07 10/04/20 08:50 Pulse Oximeter Continuous Start: 10/03/20 08:46 Freq: RTQ4 Status: Hold Protocol: Document 10/04/20 08:50 J (Rec: 10/04/20 09:28 J [email or web address]) Pulse Oximetry Assessment Oxygen Saturation (92-100) 95 Oxygen Delivery Method CPAP Equipment Usage Equipment in Use Continuous SpO2 Machine # nurse monitor Intake & Output 10/03/20 10/04/20 10/05/20 06:59 06:59 06:59 Intake Total 4644 2837 Output Total 2760 2275 Balance 1884 562 Weight 86.7 kg 86.8 kg General appearance: PRESENT: no acute distress, well-developed, well-nourished Head exam: PRESENT: atraumatic, normocephalic Eye exam: PRESENT: conjunctiva pink, EOMI, PERRLA. ABSENT: scleral icterus Ear exam: PRESENT: normal external ear exam Mouth exam: PRESENT: moist, tongue midline Neck exam: PRESENT: full ROM. ABSENT: carotid bruit, JVD, lymphadenopathy, thyromegaly Cardiovascular exam: PRESENT: RRR. ABSENT: diastolic murmur, rubs, systolic murmur Vascular exam: PRESENT: normal capillary refill GI/Abdominal exam: PRESENT: normal bowel sounds, soft. ABSENT: distended, guarding, mass, organolmegaly, rebound, tenderness Rectal exam: PRESENT: deferred Neurological exam: PRESENT: alert, awake, oriented to person, oriented to place, oriented to time, oriented to situation. ABSENT: motor sensory deficit Psychiatric exam: PRESENT: appropriate affect, normal mood. ABSENT: homicidal ideation, suicidal ideation Skin exam: PRESENT: dry, intact, warm. ABSENT: cyanosis, rash Results Laboratory Results: 10/04/20 05:37 10/04/20 05:37 10/04/20 10/04/20 10/04/20 05:37 05:37 08:50 WBC 8.1 RBC 4.56 Hgb 11.9 L Hct 36.4 L MCV 80 MCH 26.1 L MCHC 32.8 RDW 14.4 H Plt Count 268 Seg Neutrophils % 88.1 H Carbonic Acid 1.19 HCO3/H2CO3 Ratio 20:1 ABG pH 7.41 ABG pCO2 39.5 ABG pO2 76.2 L ABG HCO3 24.5 H ABG O2 Saturation 95.4 ABG Base Excess 0 FiO2 90% Sodium 132.7 L Potassium 4.9 Chloride 102 Carbon Dioxide 23 Anion Gap 8 BUN 31 H Creatinine 1.02 Est GFR ( Amer) > 60 Glucose 159 H Calcium 8.9 Impressions: Chest X-Ray 10/01/20 11:33 IMPRESSION: Increased airspace opacities in the left lung base. Chest CT 10/03/20 08:46 IMPRESSION: There has been a significant increase in bilateral airspace disease. There is involvement of both the upper and lower lobes. Changes are more prominent in the lung periphery. There are areas of ground-glass opacity with surrounding dense consolidation. There is bronchiectasis. Pulmonary nodule previously described is no longer identified and most likely was related to infectious or inflammatory process. Assessment & Plan - Diagnosis (1) Pneumonia due to 2019-nCoV Is this a current diagnosis for this admission?: Yes (2) Hyperlipidemia Qualifiers: Hyperlipidemia type: unspecified Qualified Code(s): E78.5 - Hyperlipidemia, unspecified Is this a current diagnosis for this admission?: Yes (3) Hypertension Qualifiers: Hypertension type: essential hypertension Qualified Code(s): I10 - Es sential (primary) hypertension Is this a current diagnosis for this admission?: Yes (4) Severe thrombocytopenia Is this a current diagnosis for this admission?: Yes (5) Sleep apnea syndrome Qualifiers: Sleep apnea type: unspecified type Is this a current diagnosis for this admission?: Yes (6) Type 2 diabetes mellitus Qualifiers: Diabetes mellitus lobsterman insulin use: unspecified lobsterman insulin use status Diabetes mellitus complication status: without complication Qualified Code(s): E11.9 - Type 2 diabetes mellitus without complications Is this a current diagnosis for this admission?: Yes - Time Time Spent with patient: 15-24 minutes Level of Care: IMCU Medications reviewed and adjusted accordingly: Yes Anticipated discharge: Home Anticipated DC Timeframe: Other - Plan Summary Plan Summary: Continues the current medications
[2020-10-04] MEDS ORDERED: NORMAL SALINE 250 ML IV PRN (12:35)
[2020-10-04] MEDS: AZITHROMYCIN 500 MG in DEXTROSE 5%-WATER 250 ML IV SCH (14:01)
[2020-10-04] MEDS: TAMSULOSIN HCL 0.4 MG CAP.SR.24H PO SCH (17:29)
[2020-10-04] MEDS: ATORVASTATIN CALCIUM 40 MG TABLET PO SCH (21:18)
[2020-10-04] MEDS: INSULIN GLARGINE,HUM.REC.ANLOG 1,000 UNIT/10 ML VIAL SUBCUT SCH (21:19)
[2020-10-04] MEDS ORDERED: ONDANSETRON HCL INJ/PF 4 MG/2 ML SDV ONE (21:48)
[2020-10-04] MEDS: ONDANSETRON HCL INJ/PF 4 MG/2 ML SDV IV PRN (21:50)
[2020-10-05] MEDS: NORMAL SALINE 1000 ML 1,000 ML IV PRN (03:30)
[2020-10-05] MEDS: PANTOPRAZOLE SODIUM 40 MG TABLET.DR PO SCH (05:06)
[2020-10-05 06:53] LABS: ABSOLUTE LYMPHOCYTES (AUTO) 0.6 10^3/uL (0.5-4.7); ABSOLUTE MONOCYTES (AUTO) 0.5 10^3/uL (0.1-1.4); ABSOLUTE NEUT (AUTO) 7.2 10^3/uL (1.7-8.2); BASOPHILS % (AUTO) 0.1 % (0-2); HEMATOCRIT 38.7 % (37.9-51.0); HEMOGLOBIN 12.8 g/dL (13.5-17.0); LYMPHOCYTES % (AUTO) 7.2 % (13-45); MEAN CORPUSCULAR HEMOGLOBIN 26.6 pg (27.0-33.4); MEAN CORPUSCULAR HGB CONC 33.1 g/dL (32.0-36.0); MEAN CORPUSCULAR VOLUME 80 fl (80-97); MONOCYTES % (AUTO) 5.7 % (3-13); PLATELET COUNT 216 10^3/uL (150-450); RED BLOOD COUNT 4.82 10^6/uL (4.35-5.55); RED CELL DISTRIBUTION WIDTH 14.7 % (11.5-14.0); TOTAL CELLS COUNTED % (AUTO) 100 %; WHITE BLOOD COUNT 8.3 10^3/uL (4.0-10.5)
[2020-10-05 07:19] LABS: ANION GAP 9 (5-19); BLOOD UREA NITROGEN 32 mg/dL (7-20); CALCIUM 8.8 mg/dL (8.4-10.2); CARBON DIOXIDE 25 mmol/L (22-30); CHLORIDE 100 mmol/L (98-107); GLUCOSE 135 mg/dL (75-110); POTASSIUM 4.8 mmol/L (3.6-5.0)
--- NOTE | 2020-10-05 09:42 | PDOC PROGRESS REPORT ---
Subjective Date:: 10/05/20 Subjective:: Patient is currently doing fair still require BiPAP Patient received the plasma treatment yesterday Patient's denied any chest pain no short of breath No fever Patient's is also come back positive test discussed with the patient's about the patient's current conditions Reason For Visit: LEFT LOWER LOBE PNEUMONIA;EXACERBATED COPD,PUI FOR Physical Exam Vital Signs: Temp Pulse Resp BP Pulse Ox 98.4 F 62 26 H 125/46 L 90 L 10/05/20 07:39 10/05/20 07:39 10/05/20 07:39 10/05/20 07:39 10/05/20 07:39 Pulse Oximeter Continuous Start: 10/03/20 08:46 Freq: RTQ4 Status: Hold Protocol: Document 10/04/20 08:50 [facility] (Rec: 10/04/20 09:28 J [email or web address]) Pulse Oximetry Assessment Oxygen Saturation (92-100) 95 Oxygen Delivery Method CPAP Equipment Usage Equipment in Use Continuous SpO2 Machine # nurse monitor Intake & Output 10/04/20 10/05/20 10/06/20 06:59 06:59 06:59 Intake Total 2837 1556 Output Total 2275 1435 Balance 562 121 Weight 86.8 kg 88.4 kg General appearance: PRESENT: no acute distress, well-developed, well-nourished Head exam: PRESENT: atraumatic, normocephalic Eye exam: PRESENT: conjunctiva pink, EOMI, PERRLA. ABSENT: scleral icterus Ear exam: PRESENT: normal external ear exam Mouth exam: PRESENT: moist, tongue midline Neck exam: PRESENT: full ROM. ABSENT: carotid bruit, JVD, lymphadenopathy, thyromegaly Cardiovascular exam: PRESENT: RRR. ABSENT: diastolic murmur, rubs, systolic murmur Vascular exam: PRESENT: normal capillary refill GI/Abdominal exam: ABSENT: distended, guarding, mass, organolmegaly, rebound, tenderness Rectal exam: PRESENT: deferred Neurological exam: PRESENT: alert, awake, oriented to person, oriented to place, oriented to time, oriented to situation. ABSENT: motor sensory deficit Psychiatric exam: PRESENT: appropriate affect, normal mood. ABSENT: homicidal ideation, suicidal ideation Skin exam: PRESENT: dry, intact, warm. ABSENT: cyanosis, rash Results Laboratory Results: 10/05/20 05:43 10/05/20 05:43 10/04/20 10/05/20 10/05/20 13:42 05:43 05:43 WBC 8.3 RBC 4.82 Hgb 12.8 L Hct 38.7 MCV 80 MCH 26.6 L MCHC 33.1 RDW 14.7 H Plt Count 216 Seg Neutrophils % 87.0 H Sodium 133.6 L Potassium 4.8 Chloride 100 Carbon Dioxide 25 Anion Gap 9 BUN 32 H Creatinine 1.03 Est GFR ( Amer) > 60 Glucose 135 H Calcium 8.8 Blood Type O NEGATIVE Impressions: Chest X-Ray 10/01/20 11:33 IMPRESSION: Increased airspace opacities in the left lung base. Chest CT 10/03/20 08:46 IMPRESSION: There has been a significant increase in bilateral airspace disease. There is involvement of both the upper and lower lobes. Changes are more prominent in the lung periphery. There are areas of ground-glass opacity with surrounding dense consolidation. There is bronchiectasis. Pulmonary nodule previously described is no longer identified and most likely was related to infectious or inflammatory process. Assessment & Plan - Diagnosis (1) Pneumonia due to 2019-nCoV Is this a current diagnosis for this admission?: Yes (2) Hyperlipidemia Qualifiers: Hyperlipidemia type: unspecified Qualified Code(s): E78.5 - Hyperlipidemia, unspecified Is this a current diagnosis for this admission?: Yes (3) Hypertension Qualifiers: Hypertension type: essential hypertension Qualified Code(s): I10 - Essential (primary) hypertension Is this a current diagnosis for this admission?: Yes (4) Severe thrombocytopenia Is this a current diagnosis for this admission?: Yes (5) Sleep apnea syndrome Qualifiers: Sleep apnea type: unspecified type Is this a current diagnosis for this admission?: Yes (6) Type 2 diabetes mellitus Qualifiers: Diabetes mellitus group home insulin use: unspecified group home insulin use status Diabetes mellitus complication status: without complication Qualified Code(s): E11.9 - Type 2 diabetes mellitus without complications Is this a current diagnosis for this admission?: Yes - Time Time Spent with patient: 15-24 minutes Level of Care: IMCU Medications reviewed and adjusted accordingly: Yes Anticipated discharge: Home Anticipated DC Timeframe: Other - Plan Summary Plan Summary: Continues the IV antibiotics continues the current dexamethasone and continues to monitor Patient's platelet count is all stable as per discussed with hook loader continues to steroid with current dexamethasone dose when patients go home continues the prednisone as per tapering dose Patient with multiple comorbidity including the history of coronary disease currently followed Dr. Salmon recent stress test was all stable according to the patient and Dr. Salmon patient also have a type 2 diabetes with multiple complications with Covid pneumonia patient high risk for the multiple complication including recent thrombocytopenia discussed with the regarding the patient's current conditions will continues to supportive treatments
[2020-10-05] MEDS: INSULIN LISPRO 100 UNIT/ML 3 ML VIAL SUBCUT SCH ×7 (10:10→21:37)
[2020-10-05] MEDS: DEXAMETHASONE SOD PHOSPHATE INJ 4 MG/1 ML VIAL IV SCH ×2 (11:00→21:36)
[2020-10-05] MEDS: ENOXAPARIN SODIUM INJ 40 MG/0.4 ML DISP.SYRIN SUBCUT SCH (11:00)
[2020-10-05] MEDS: AMLODIPINE BESYLATE 10 MG TABLET PO SCH (11:01)
[2020-10-05] MEDS: REMDESIVIR 100 MG in NORMAL SALINE 250 ML IV SCH (11:01)
[2020-10-05] MEDS: CEFEPIME 1 GM/D5W RTU 1 GM/50 ML RTUPB IV SCH ×2 (11:01→21:38)
[2020-10-05] MEDS: FLUTICASONE/UMECLIDIN/VILANTER 100-62.5-25 MCG/DOSE IH SCH (11:02)
[2020-10-05] MEDS: FENOFIBRATE NANOCRYSTALLIZED 145 MG TABLET PO SCH (11:02)
[2020-10-05] MEDS: BENZONATATE 100 MG CAPSULE PO SCH ×2 (11:02→21:38)
--- NOTE | 2020-10-05 12:37 | EKG REPORT ---
SEVERITY:- BORDERLINE ECG - SINUS RHYTHM NONSPECIFIC ST-T CHANGES LATERAL LEADS : Confirmed by: Javad Jennings MD 05-Oct-2020 12:37:01
[2020-10-05 15:14] LABS: ARTERIAL BLOOD BASE EXCESS 1.2 mmol/L; ARTERIAL BLOOD H2CO3 1.26 mmol/L (1.05-1.35); ARTERIAL BLOOD O2 SATURATION 84.4 % (94-98); ARTERIAL BLOOD PCO2 41.9 mmHg (35-45); ARTERIAL BLOOD PH 7.41 (7.35-7.45); ARTERIAL BLOOD PO2 48.2 mmHg (80-100); ARTERIAL BLOOD TOTAL CO2 27.3 mmol/L (23-27)
[2020-10-05 15:16] LABS: ARTERIAL BLOOD FIO2 100%
[2020-10-05] MEDS: AZITHROMYCIN 500 MG in DEXTROSE 5%-WATER 250 ML IV SCH (17:16)
[2020-10-05] MEDS: TAMSULOSIN HCL 0.4 MG CAP.SR.24H PO SCH (18:19)
[2020-10-05] MEDS: MELATONIN 5 MG TABLET PO PRN (21:36)
[2020-10-05] MEDS: INSULIN GLARGINE,HUM.REC.ANLOG 1,000 UNIT/10 ML VIAL SUBCUT SCH (21:36)
[2020-10-05] MEDS: ATORVASTATIN CALCIUM 40 MG TABLET PO SCH (21:37)
[2020-10-06 06:15] LABS: ANION GAP 7 (5-19); BLOOD UREA NITROGEN 38 mg/dL (7-20); CALCIUM 8.7 mg/dL (8.4-10.2); CARBON DIOXIDE 24 mmol/L (22-30); CHLORIDE 102 mmol/L (98-107); GLUCOSE 240 mg/dL (75-110)
[2020-10-06] MEDS: PANTOPRAZOLE SODIUM 40 MG TABLET.DR PO SCH (06:23)
[2020-10-06] MEDS: NORMAL SALINE 1000 ML 1,000 ML IV PRN (06:41)
[2020-10-06] MEDS: INSULIN LISPRO 100 UNIT/ML 3 ML VIAL SUBCUT SCH ×7 (09:15→22:19)
[2020-10-06] MEDS: ENOXAPARIN SODIUM INJ 40 MG/0.4 ML DISP.SYRIN SUBCUT SCH (09:15)
[2020-10-06] MEDS: FENOFIBRATE NANOCRYSTALLIZED 145 MG TABLET PO SCH (09:15)
[2020-10-06] MEDS: DEXAMETHASONE SOD PHOSPHATE INJ 4 MG/1 ML VIAL IV SCH ×2 (09:16→22:18)
[2020-10-06] MEDS: BENZONATATE 100 MG CAPSULE PO SCH ×2 (09:17→22:18)
[2020-10-06] MEDS: AMLODIPINE BESYLATE 10 MG TABLET PO SCH (09:17)
[2020-10-06] MEDS: CEFEPIME 1 GM/D5W RTU 1 GM/50 ML RTUPB IV SCH ×2 (09:17→22:19)
[2020-10-06] MEDS: REMDESIVIR 100 MG in NORMAL SALINE 250 ML IV SCH (11:27)
[2020-10-06] MEDS: FLUTICASONE/UMECLIDIN/VILANTER 100-62.5-25 MCG/DOSE IH SCH (11:27)
[2020-10-06] MEDS: AZITHROMYCIN 500 MG in DEXTROSE 5%-WATER 250 ML IV SCH (14:26)
--- NOTE | 2020-10-06 16:52 | PDOC PROGRESS REPORT ---
Subjective Date:: 10/06/20 Subjective:: Patient seen by the bedside, he has Covid pneumonia, he received convalescent plasma, IV dexamethasone, IV remdesivir, presently on high flow oxygen. Reason For Visit: LEFT LOWER LOBE PNEUMONIA;EXACERBATED COPD,PUI FOR Physical Exam Vital Signs: Temp Pulse Resp BP Pulse Ox 98.2 F 65 24 H 145/70 H 90 L 10/06/20 08:52 10/06/20 08:52 10/06/20 13:43 10/06/20 08:52 10/06/20 13:43 Pulse Oximeter Continuous Start: 10/03/20 08:46 Freq: RTQ4 Status: Hold Protocol: Document 10/04/20 08:50 J (Rec: 10/04/20 09:28 J [email or web address]) Pulse Oximetry Assessment Oxygen Saturation (92-100) 95 Oxygen Delivery Method CPAP Equipment Usage Equipment in Use Continuous SpO2 Machine # nurse monitor Intake & Output 10/05/20 10/06/20 10/07/20 06:59 06:59 06:59 Intake Total 2056 1950 250 Output Total 1435 1525 Balance 621 425 250 Weight 88.4 kg 88.9 kg General appearance: PRESENT: no acute distress Eye exam: PRESENT: PERRLA Respiratory exam: PRESENT: clear to auscultation raya Cardiovascular exam: PRESENT: +S1, +S2 Neurological exam: PRESENT: alert Results Laboratory Results: 10/05/20 05:43 10/06/20 04:46 10/06/20 04:46 Sodium 132.7 L Potassium 5.0 Chloride 102 Carbon Dioxide 24 Anion Gap 7 BUN 38 H Creatinine 0.81 Est GFR ( Amer) > 60 Glucose 240 H Calcium 8.7 Impressions: Chest X-Ray 10/01/20 11:33 IMPRESSION: Increased airspace opacities in the left lung base. Chest CT 10/03/20 08:46 IMPRESSION: There has been a significant increase in bilateral airspace dise ase. There is involvement of both the upper and lower lobes. Changes are more prominent in the lung periphery. There are areas of ground-glass opacity with surrounding dense consolidation. There is bronchiectasis. Pulmonary nodule previously described is no longer identified and most likely was related to infectious or inflammatory process. Assessment & Plan - Diagnosis (1) Acute hypoxemic respiratory failure Is this a current diagnosis for this admission?: Yes Plan: Patient presently on high flow oxygen, oxygen saturation well maintained (2) COVID-19 Is this a current diagnosis for this admission?: Yes Plan: He has COVID-19, received convalescent plasma, on IV dexamethasone, received IV remdesivir (3) Pneumonia, unspecified organism Is this a current diagnosis for this admission?: Yes (4) Thrombocytopenia, unspecified Is this a current diagnosis for this admission?: Yes - Time Time Spent with patient: 25-34 minutes Level of Care: IMCU Medications reviewed and adjusted accordingly: Yes Anticipated discharge: Home Anticipated DC Timeframe: within 72 hours
[2020-10-06] MEDS: TAMSULOSIN HCL 0.4 MG CAP.SR.24H PO SCH (17:59)
[2020-10-06] MEDS: MELATONIN 5 MG TABLET PO PRN (22:18)
[2020-10-06] MEDS: ATORVASTATIN CALCIUM 40 MG TABLET PO SCH (22:19)
[2020-10-06] MEDS: INSULIN GLARGINE,HUM.REC.ANLOG 1,000 UNIT/10 ML VIAL SUBCUT SCH (22:20)
[2020-10-07] MEDS: PANTOPRAZOLE SODIUM 40 MG TABLET.DR PO SCH (06:26)
[2020-10-07] MEDS: NORMAL SALINE 1000 ML 1,000 ML IV PRN (06:37)
[2020-10-07] MEDS: INSULIN LISPRO 100 UNIT/ML 3 ML VIAL SUBCUT SCH ×7 (08:30→21:23)
[2020-10-07] MEDS: ENOXAPARIN SODIUM INJ 40 MG/0.4 ML DISP.SYRIN SUBCUT SCH (11:25)
[2020-10-07] MEDS: AMLODIPINE BESYLATE 10 MG TABLET PO SCH (11:26)
[2020-10-07] MEDS: CEFEPIME 1 GM/D5W RTU 1 GM/50 ML RTUPB IV SCH ×2 (11:27→21:22)
[2020-10-07] MEDS: FENOFIBRATE NANOCRYSTALLIZED 145 MG TABLET PO SCH (11:28)
[2020-10-07] MEDS: BENZONATATE 100 MG CAPSULE PO SCH ×2 (11:28→21:21)
[2020-10-07] MEDS: DEXAMETHASONE SOD PHOSPHATE INJ 4 MG/1 ML VIAL IV SCH ×2 (11:28→17:59)
[2020-10-07] MEDS: FLUTICASONE/UMECLIDIN/VILANTER 100-62.5-25 MCG/DOSE IH SCH (11:29)
[2020-10-07] MEDS: REMDESIVIR 100 MG in NORMAL SALINE 250 ML IV SCH (12:21)
[2020-10-07] MEDS: AZITHROMYCIN 500 MG in DEXTROSE 5%-WATER 250 ML IV SCH (15:00)
--- NOTE | 2020-10-07 17:18 | PDOC PROGRESS REPORT ---
Subjective Date:: 10/07/20 Subjective:: Patient seen by the bedside, he has Covid pneumonia, he received convalescent plasma, IV dexamethasone, IV remdesivir, presently on high flow oxygen. 10/07/2020 Patient seen by the bedside,He has finished the intravenous remdesivir, he also was given convalescent plasma presently on IV dexamethasone for a total of 10 days, Chest x-ray is ordered Reason For Visit: LEFT LOWER LOBE PNEUMONIA;EXACERBATED COPD,PUI FOR Physical Exam Vital Signs: Temp Pulse Resp BP Pulse Ox 98.4 F 81 23 H 144/63 H 96 10/07/20 11:45 10/07/20 14:00 10/07/20 15:42 10/07/20 11:45 10/07/20 15:42 Pulse Oximeter Continuous Start: 10/03/20 08:46 Freq: RTQ4 Status: Hold Protocol: Document 10/04/20 08:50 [facility] (Rec: 10/04/20 09:28 [facility] [email or web address]) Pulse Oximetry Assessment Oxygen Saturation (92-100) 95 Oxygen Delivery Method CPAP Equipment Usage Equipment in Use Continuous SpO2 Machine # nurse monitor Intake & Output 10/06/20 10/07/20 10/08/20 06:59 06:59 06:59 Intake Total 1950 2030 360 Output Total 1525 925 250 Balance 425 1105 110 Weight 88.9 kg 81.7 kg 81.7 kg General appearance: PRESENT: no acute distress Eye exam: PRESENT: PERRLA Respiratory exam: PRESENT: clear to auscultation raya Cardiovascular exam: PRESENT: +S1, +S2 GI/Abdominal exam: PRESENT: soft Neurological exam: PRESENT: alert Results Laboratory Results: 10/05/20 05:43 10/06/20 04:46 10/02/20 12:23 Blood Blood Culture - Final NO GROWTH IN 5 DAYS 10/02/20 12:16 Blood Blood Culture - Final NO GROWTH IN 5 DAYS Impressions: Chest X-Ray 10/01/20 11:33 IMPRESSION: Increased airspace opacities in the left lung base. Chest CT 10/03/20 08:46 IMPRESSION: There has been a significant increase in bilateral airspace disease. There is involvement of both the upper and lower lobes. Changes are more prominent in the lung periphery. There are areas of ground-glass opacity with surrounding dense consolidation. There is bronchiectasis. Pulmonary nodule previously described is no longer identified and most likely was related to infectious or inflammatory process. Assessment & Plan - Diagnosis (1) Acute hypoxemic respiratory failure Is this a current diagnosis for this admission?: Yes Plan: Patient presently on high flow oxygen, oxygen saturation well maintained (2) COVID-19 Is this a current diagnosis for this admission?: Yes Plan: He has COVID-19, received convalescent plasma, on IV dexamethasone, received IV remdesivir (3) Pneumonia, unspecified organism Is this a current diagnosis for this admission?: Yes (4) Thrombocytopenia, unspecified Is this a current diagnosis for this admission?: Yes - Time Time Spent with patient: 25-34 minutes Level of Care: IMCU Medications reviewed and adjusted accordingly: Yes Anticipated discharge: Home Anticipated DC Timeframe: Other
[2020-10-07] MEDS: TAMSULOSIN HCL 0.4 MG CAP.SR.24H PO SCH (17:49)
--- NOTE | 2020-10-07 17:52 | RADIOLOGY REPORT (SQ) ---
EXAM DESCRIPTION: CHEST SINGLE VIEW IMAGES COMPLETED DATE/TIME: 10/07/2020 5:40 pm REASON FOR STUDY: PNEUMONIA COMPARISON: 10/01/2020 EXAM PARAMETERS: NUMBER OF VIEWS: One view. TECHNIQUE: Single frontal radiographic view of the chest acquired. RADIATION DOSE: NA LIMITATIONS: None. FINDINGS: LUNGS AND PLEURA: Diffuse parenchymal opacities throughout both lungs. MEDIASTINUM AND HILAR STRUCTURES: No masses. Contour normal. HEART AND VASCULAR STRUCTURES: Heart slightly enlarged. No overt failure. BONES: No acute findings. HARDWARE: None in the chest. OTHER: No other significant finding. IMPRESSION: Diffuse parenchymal opacities throughout both lungs. Marked deterioration from previous . TECHNICAL DOCUMENTATION: JOB ID: [id number] 2010 [employer]- All Rights Reserved Reading location - IP/workstation name: [email or web address]
[2020-10-07] MEDS: ATORVASTATIN CALCIUM 40 MG TABLET PO SCH (21:21)
[2020-10-07] MEDS: INSULIN GLARGINE,HUM.REC.ANLOG 1,000 UNIT/10 ML VIAL SUBCUT SCH (21:22)
[2020-10-07] MEDS: MELATONIN 5 MG TABLET PO PRN (21:35)
[2020-10-08] MEDS: NORMAL SALINE 1000 ML 1,000 ML IV PRN ×2 (05:07→22:20)
[2020-10-08] MEDS: PANTOPRAZOLE SODIUM 40 MG TABLET.DR PO SCH (05:32)
[2020-10-08] MEDS: INSULIN LISPRO 100 UNIT/ML 3 ML VIAL SUBCUT SCH ×7 (08:55→22:16)
[2020-10-08] MEDS: ENOXAPARIN SODIUM INJ 40 MG/0.4 ML DISP.SYRIN SUBCUT SCH (08:59)
[2020-10-08] MEDS: DEXAMETHASONE SOD PHOSPHATE INJ 4 MG/1 ML VIAL IV SCH (09:00)
[2020-10-08] MEDS: FLUTICASONE/UMECLIDIN/VILANTER 100-62.5-25 MCG/DOSE IH SCH (09:00)
[2020-10-08] MEDS: CEFEPIME 1 GM/D5W RTU 1 GM/50 ML RTUPB IV SCH ×2 (09:00→21:00)
[2020-10-08] MEDS: FENOFIBRATE NANOCRYSTALLIZED 145 MG TABLET PO SCH (09:00)
[2020-10-08] MEDS: AMLODIPINE BESYLATE 10 MG TABLET PO SCH (09:00)
[2020-10-08] MEDS: BENZONATATE 100 MG CAPSULE PO SCH ×2 (09:00→20:59)
[2020-10-08 09:32] LABS: ABSOLUTE LYMPHOCYTES (AUTO) 0.6 10^3/uL (0.5-4.7); ABSOLUTE MONOCYTES (AUTO) 0.5 10^3/uL (0.1-1.4); BASOPHILS % (AUTO) 0.2 % (0-2); HEMATOCRIT 38.9 % (37.9-51.0); HEMOGLOBIN 12.7 g/dL (13.5-17.0); LYMPHOCYTES % (AUTO) 7.6 % (13-45); MEAN CORPUSCULAR HEMOGLOBIN 26.1 pg (27.0-33.4); MEAN CORPUSCULAR HGB CONC 32.8 g/dL (32.0-36.0); MEAN CORPUSCULAR VOLUME 80 fl (80-97); MONOCYTES % (AUTO) 6.2 % (3-13); PLATELET COUNT 170 10^3/uL (150-450); RED BLOOD COUNT 4.89 10^6/uL (4.35-5.55); RED CELL DISTRIBUTION WIDTH 14.5 % (11.5-14.0); TOTAL CELLS COUNTED % (AUTO) 100 %; WHITE BLOOD COUNT 8.1 10^3/uL (4.0-10.5)
[2020-10-08 09:50] LABS: ALBUMIN 2.8 g/dL (3.5-5.0); ALKALINE PHOSPHATASE 79 U/L (38-126); ANION GAP 5 (5-19); ASPARTATE AMINO TRANSFERASE 24 U/L (17-59); BILIRUBIN,DIRECT 0.1 mg/dL (0.0-0.4); BILIRUBIN,TOTAL 0.8 mg/dL (0.2-1.3); BLOOD UREA NITROGEN 39 mg/dL (7-20); CALCIUM 9.2 mg/dL (8.4-10.2); CARBON DIOXIDE 25 mmol/L (22-30); CHLORIDE 105 mmol/L (98-107); GLUCOSE 180 mg/dL (75-110); POTASSIUM 4.7 mmol/L (3.6-5.0); TOTAL PROTEIN 5.6 g/dL (6.3-8.2)
[2020-10-08] MEDS: AZITHROMYCIN 500 MG in DEXTROSE 5%-WATER 250 ML IV SCH (13:21)
[2020-10-08] MEDS: TAMSULOSIN HCL 0.4 MG CAP.SR.24H PO SCH (17:38)
--- NOTE | 2020-10-08 20:50 | PDOC PROGRESS REPORT ---
Subjective Date:: 10/08/20 Subjective:: Patient seen by the bedside, he has Covid pneumonia, he received convalescent plasma, IV dexamethasone, IV remdesivir, presently on high flow oxygen. 10/07/2020 Patient seen by the bedside,He has finished the intravenous remdesivir, he also was given convalescent plasma presently on IV dexamethasone for a total of 10 days, Chest x-ray is ordered 10/08/2020 Patient seen by the bedside,Chest x-ray demonstrated diffuse parenchymal opacities throughout both lungs Reason For Visit: LEFT LOWER LOBE PNEUMONIA;EXACERBATED COPD,PUI FOR Physical Exam Vital Signs: Temp Pulse Resp BP Pulse Ox 98.3 F 73 20 146/67 H 90 L 10/08/20 15:38 10/08/20 19:00 10/08/20 15:38 10/08/20 15:38 10/08/20 15:38 Pulse Oximeter Continuous Start: 10/03/20 0 8:46 Freq: RTQ4 Status: Hold Protocol: Document 10/04/20 08:50 J (Rec: 10/04/20 09:28 [facility] [email or web address]) Pulse Oximetry Assessment Oxygen Saturation (92-100) 95 Oxygen Delivery Method CPAP Equipment Usage Equipment in Use Continuous SpO2 Machine # nurse monitor Intake & Output 10/07/20 10/08/20 10/09/20 06:59 06:59 06:59 Intake Total 2030 2120 500 Output Total 925 1275 775 Balance 1105 845 -275 Weight 81.7 kg 82.4 kg General appearance: PRESENT: other - Patient on BiPAP Eye exam: PRESENT: PERRLA Respiratory exam: PRESENT: rhonchi Cardiovascular exam: PRESENT: +S1, +S2 GI/Abdominal exam: PRESENT: soft Neurological exam: PRESENT: alert Results Laboratory Results: 10/08/20 09:24 10/08/20 09:24 10/08/20 10/08/20 09:24 09:24 WBC 8.1 RBC 4.89 Hgb 12.7 L Hct 38.9 MCV 80 MCH 26.1 L MCHC 32.8 RDW 14.5 H Plt Count 170 Seg Neutrophils % 86.0 H Sodium 134.7 L Potassium 4.7 Chloride 105 Carbon Dioxide 25 Anion Gap 5 BUN 39 H Creatinine 0.81 Est GFR ( Amer) > 60 Glucose 180 H Calcium 9.2 Total Bilirubin 0.8 AST 24 Alkaline Phosphatase 79 Total Protein 5.6 L Albumin 2.8 L Impressions: Chest CT 10/03/20 08:46 IMPRESSION: There has been a significant increase in bilateral airspace disease. There is involvement of both the upper and lower lobes. Changes are more prominent in the lung periphery. There are areas of ground-glass opacity with surrounding dense consolidation. There is bronchiectasis. Pulmonary nodule previously described is no longer identified and most likely was related to infectious or inflammatory process. Chest X-Ray 10/07/20 00:00 IMPRESSION: Diffuse parenchymal opacities throughout both lungs. Marked deterioration from previous. Assessment & Plan - Diagnosis (1) Acute hypoxemic respiratory failure Is this a current diagnosis for this admission?: Yes Plan: Chest x-ray showed diffuse bilateral parenchymal infiltrate patient continues to require noninvasive positive pressure ventilation (2) COVID-19 Is this a current diagnosis for this admission?: Yes Plan: He has COVID-19, received convalescent plasma, on IV dexamethasone, received IV remdesivir (3) Pneumonia, unspecified organism Is this a current diagnosis for this admission?: Yes (4) Thrombocytopenia, unspecified Is this a current diagnosis for this admission?: Yes - Time Time Spent with patient: 35 or more minutes Level of Care: IMCU Medications reviewed and adjusted accordingly: Yes Anticipated discharge: Home Anticipated DC Timeframe: Other
[2020-10-08] MEDS: ATORVASTATIN CALCIUM 40 MG TABLET PO SCH (20:59)
[2020-10-08 21:51] LABS: ARTERIAL BLOOD BASE EXCESS 1.1 mmol/L; ARTERIAL BLOOD H2CO3 1.25 mmol/L (1.05-1.35); ARTERIAL BLOOD HCO3 25.8 mmol/L (20-24); ARTERIAL BLOOD O2 SATURATION 96.7 % (94-98); ARTERIAL BLOOD PCO2 41.5 mmHg (35-45); ARTERIAL BLOOD PH 7.41 (7.35-7.45); ARTERIAL BLOOD TOTAL CO2 27.1 mmol/L (23-27)
[2020-10-08 21:55] LABS: ARTERIAL BLOOD FIO2 100%
[2020-10-08] MEDS: MELATONIN 5 MG TABLET PO PRN (22:38)
[2020-10-08] MEDS: INSULIN GLARGINE,HUM.REC.ANLOG 1,000 UNIT/10 ML VIAL SUBCUT SCH (22:38)
[2020-10-09] MEDS: PANTOPRAZOLE SODIUM 40 MG TABLET.DR PO SCH (05:38)
[2020-10-09] MEDS: ONDANSETRON HCL INJ/PF 4 MG/2 ML SDV IV PRN ×3 (05:41→18:37)
--- NOTE | 2020-10-09 09:08 | PDOC CRITICAL CARE PROG REPORT ---
General Date:: 10/09/20 Hospital Day:: 8 Resuscitation Status: Full Code Events in the past 12 to 24 Hours:: Desaturated this AM to 70s when taken off bipap to eat. Back to previous baseline. Review of systems relevant to events:: Pulmonary. Reason for ICU Addmission:: Evaluation - Medications: Medications reviewed and adjusted accordingly: Yes Vasopressors:: None Sedation:: None Physical Exam Vital Signs: Temp Pulse Resp BP Pulse Ox 98.5 F 66 24 H 143/77 H 92 10/09/20 07:32 10/09/20 07:00 10/09/20 03:55 10/09/20 03:55 10/09/20 03:55 Pulse Oximeter Continuous Start: 10/03/20 08:46 Freq: RTQ4 Status: Hold Protocol: Document 10/04/20 08:50 JDR (Rec: 10/04/20 09:28 [email or web address]) Pulse Oximetry Assessment Oxygen Saturation (92-100) 95 Oxygen Delivery Method CPAP Equipment Usage Equipment in Use Continuous SpO2 Machine # nurse monitor Intake & Output 10/08/20 10/09/20 10/10/20 06:59 06:59 06:59 Intake Total 2120 1550 Output Total 1275 1675 Balance 845 -125 Weight 82.4 kg 74.1 kg Weight/Height Weight 74.1 kg Height 5 ft 9 in General appearance: PRESENT: no acute distress, cooperative Head exam: PRESENT: atraumatic, normocephalic Eye exam: PRESENT: conjunctiva pink, EOMI, PERRLA. ABSENT: scleral icterus Ear exam: PRESENT: normal external ear exam Mouth exam: PRESENT: moist, tongue midline Respiratory exam: PRESENT: clear to auscultation raya, crackles - Mild dry crackles.. ABSENT: rales, rhonchi, wheezes Cardiovascular exam: PRESENT: RRR. ABSENT: diastolic murmur, rubs, systolic murmur GI/Abdominal exam: PRESENT: normal bowel sounds, soft. ABSENT: distended, guarding, mass, organolmegaly, rebound, tenderness Rectal exam: PRESENT: deferred Extremities exam: PRESENT: full ROM. ABSENT: calf tenderness, clubbing, pedal edema Musculoskeletal exam: PRESENT: normal inspection Neurological exam: PRESENT: alert, awake Psychiatric exam: PRESENT: appropriate affect, normal mood. ABSENT: homicidal ideation, suicidal ideation Skin exam: PRESENT: dry, intact, warm. ABSENT: cyanosis, rash Tubes/Lines: PRESENT: Other - CPAP. Laboratory/Radiographs Laboratory Results: 10/08/20 09:24 10/08/20 09:24 10/08/20 10/08/20 10/08/20 09:24 09:24 21:09 WBC 8.1 RBC 4.89 Hgb 12.7 L Hct 38.9 MCV 80 MCH 26.1 L MCHC 32.8 RDW 14.5 H Plt Count 170 Seg Neutrophils % 86.0 H Carbonic Acid 1.25 HCO3/H2CO3 Ratio 20:1 ABG pH 7.41 ABG pCO2 41.5 ABG pO2 87.0 ABG HCO3 25.8 H ABG O2 Saturation 96.7 ABG Base Excess 1.1 FiO2 100% Sodium 134.7 L Potassium 4.7 Chloride 105 Carbon Dioxide 25 Anion Gap 5 BUN 39 H Creatinine 0.81 Est GFR ( Amer) > 60 Glucose 180 H Calcium 9.2 Total Bilirubin 0.8 AST 24 Alkaline Phosphatase 79 Total Protein 5.6 L Albumin 2.8 L Impressions: Chest CT 10/03/20 08:46 IMPRESSION: There has been a significant increase in bilateral airspace disease. There is involvement of both the upper and lower lobes. Changes are more prominent in the lung periphery. There are areas of ground-glass opacity with surrounding dense consolidation. There is bronchiectasis. Pulmonary nodule previously described is no longer identified and most likely was related to infectious or inflammatory process. Chest X-Ray 10/07/20 00:00 IMPRESSION: Diffuse parenchymal opacities throughout both lungs. Marked deterioration from previous. All labs, radiographs, diagnostic studies and EKGs were personally reviewed: Yes In addition, reports of radiographic and diagnostic studies were read: Yes Assessment and Plan - Diagnosis (1) Pneumonia due to 2019-nCoV Is this a current diagnosis for this admission?: Yes Plan: He has COVID PNA. He desaturated off CPAP in order to eat. He went down to the 70s according to nursing. He is back on CPAP at 100% and his saturations are back into the 90s. He is awake, perhaps confused at times but maintaining a conversation. At this point he is acting like we have seen many COVID patients, CPAP or bipap dependant and on 100%. However he does not need intubation, I also would not try proning yet. An ABG today may be helpful, but he has not been hypercarbic. His O2 saturation of 92 translates to a pO2 of about 60-65. I agree this patient is ill but ill consistent with what is expected for covid. His CXR bears little on degree of hypoxia. He is in a high risk group for COVID mortality: Age 64, DM, hypertensive and with COPD which is likely contributing to his relative hypoxia. Indications to bring him to the ICU would include hypercarbia, decreased mental status, worsening hypoxia such that intubation is required. This may well happen in time, but at this point I would not escalate care. (2) COPD (chronic obstructive pulmonary disease) Qualifiers: COPD type: chronic bronchitis Is this a current diagnosis for this admission?: Yes Plan: Contributing to hypoxia. (3) CAD (coronary artery disease) Is this a current diagnosis for this admission?: Yes Plan: Not active but a risk factor for complications. (4) Type 2 diabetes mellitus Qualifiers: Diabetes mellitus nursing home insulin use: unspecified long term acute care registered nurse insulin use status Diabetes mellitus complication status: without complication Qualified Code(s): E11.9 - Type 2 diabetes mellitus without complications Is this a current diagnosis for this admission?: Yes Plan: Controlled. Plan Summary: He may need the ICU and intubation at some point. Not right now. Feeding him is a problem. To accomplish this he may need a feeding tube. Not ideal but a PICC Saturday with TPN is an option. Critical Time Critical Time (minutes): 35 Level of Care: IMCU Anticipated discharge: Home Anticipated DC Timeframe: Other -: 1. The care of a critical patient is a dynamic process. This note is a housing management representative synopsis but static in nature. The timeframe for treatments given in order is not necessarily the actual time these treatments may have been done. 2. This patient requires critical care secondary to ongoing requirements for therapy not offered or safe outside the critical care environment. Transfer to a lower level of care will result in altered life or limb morbidity and mortality. 3. Multidisciplinary rounds completed. 4. ABCDE bundle addressed.
[2020-10-09] MEDS: DEXAMETHASONE SOD PHOSPHATE INJ 4 MG/1 ML VIAL IV SCH (10:30)
[2020-10-09] MEDS: INSULIN LISPRO 100 UNIT/ML 3 ML VIAL SUBCUT SCH ×7 (10:30→21:52)
[2020-10-09] MEDS: ENOXAPARIN SODIUM INJ 40 MG/0.4 ML DISP.SYRIN SUBCUT SCH (10:31)
[2020-10-09] MEDS: CEFEPIME 1 GM/D5W RTU 1 GM/50 ML RTUPB IV SCH ×2 (10:31→21:52)
[2020-10-09] MEDS: DEXTROSE 5%-1/2 NORMAL SALINE 1,000 ML IV PRN (10:40)
[2020-10-09] MEDS: AMLODIPINE BESYLATE 10 MG TABLET PO SCH (11:08)
[2020-10-09] MEDS: BENZONATATE 100 MG CAPSULE PO SCH ×2 (11:08→21:51)
[2020-10-09] MEDS: FLUTICASONE/UMECLIDIN/VILANTER 100-62.5-25 MCG/DOSE IH SCH (11:08)
[2020-10-09] MEDS: FENOFIBRATE NANOCRYSTALLIZED 145 MG TABLET PO SCH (11:09)
[2020-10-09 11:10] LABS: ARTERIAL BLOOD BASE EXCESS 0.7 mmol/L; ARTERIAL BLOOD H2CO3 1.29 mmol/L (1.05-1.35); ARTERIAL BLOOD HCO3 25.8 mmol/L (20-24); ARTERIAL BLOOD TOTAL CO2 27.1 mmol/L (23-27)
[2020-10-09 11:11] LABS: ARTERIAL BLOOD FIO2 100%
--- NOTE | 2020-10-09 16:39 | PDOC PROGRESS REPORT ---
Subjective Date:: 10/09/20 Subjective:: Patient seen by the bedside, he has Covid pneumonia, he received convalescent plasma, IV dexamethasone, IV remdesivir, presently on high flow oxygen. 10/07/2020 Patient seen by the bedside,He has finished the intravenous remdesivir, he also was given convalescent plasma presently on IV dexamethasone for a total of 10 days, Chest x-ray is ordered 10/08/2020 Patient seen by the bedside,Chest x-ray demonstrated diffuse parenchymal opacities throughout both lungs 10/09/2020. Patient was seen by the bedside, he continues to require noninvasive positive pressure ventilation, patient cannot come off the device without desaturation of his oxygen to below 80. The PaO2/FiO2 ratio is 75 suggestive of severe hypoxemia. Consultation was requested from ICU for transfer, patient was seen by the green pipefitter, he felt patient does not need transfer to ICU at this moment since it is still able to talk without interruption of his sentences and the diffuse bilateral infiltrate on the chest x-ray is expected for Covid pneumonia patient's. I also spoke to his about his CODE STATUS. He has no living will or an advanced directive regarding end-of-life decision, the came by to see him today by the bedside, she wants everything done including if necessary mechanical ventilation and chest compression. So patient remains a full code per the POA who is the . Reason For Visit: LEFT LOWER LOBE PNEUMONIA;EXACERBATED COPD,PUI FOR Physical Exam Vital Signs: Temp Pulse Resp BP Pulse Ox 98.7 F 67 18 142/69 H 94 10/09/20 11:42 10/09/20 14:00 10/09/20 12:00 10/09/20 11:42 10/09/20 12:00 Pulse Oximeter Continuous Start: 10/03/20 08:46 Freq: RTQ4 Status: Hold Protocol: Document 10/09/20 12:00 KIMBERLY (Rec: 10/09/20 12:04 [email or web address]) Pulse Oximetry Assessment Oxygen Saturation (92-100) 94 Fraction of Inspired Oxygen (FIO2) 100 Equipment Usage Equipment Standby Continuous SpO2 Machine # on nurse monitor Intake & Output 10/08/20 10/09/20 10/10/20 06:59 06:59 06:59 Intake Total 2120 1550 845 Output Total 1275 1675 Balance 845 -125 845 Weight 82.4 kg 74.1 kg General appearance: PRESENT: mild distress Eye exam: PRESENT: PERRLA Respiratory exam: PRESENT: rhonchi Cardiovascular exam: PRESENT: +S1, +S2 GI/Abdominal exam: PRESENT: soft Neurological exam: PRESENT: alert Results Laboratory Results: 10/08/20 09:24 10/08/20 09:24 10/08/20 10/09/20 21:09 10:45 Carbonic Acid 1.25 1.29 HCO3/H2CO3 Ratio 20:1 20:1 ABG pH 7.41 7.40 ABG pCO2 41.5 43.0 ABG pO2 87.0 75.0 L ABG HCO3 25.8 H 25.8 H ABG O2 Saturation 96.7 95.0 ABG Base Excess 1.1 0.7 FiO2 100% 100% Impressions: Chest CT 10/03/20 08:46 IMPRESSION: There has been a significant increase in bilateral airspace disease. There is involvement of both the upper and lower lobes. Changes are more prominent in the lung periphery. There are areas of ground-glass opacity with surrounding dense consolidation. There is bronchiectasis. Pulmonary nodule previously described is no longer identified and most likely was related to infectious or inflammatory process. Chest X-Ray 10/07/20 00:00 IMPRESSION: Diffuse parenchymal opacities throughout both lungs. Marked deterioration from previous. Assessment & Plan - Diagnosis (1) Acute hypoxemic respiratory failure Is this a current diagnosis for this admission?: Yes Plan: The PaO2/FiO2 ratio is 75 consistent with severe hypoxemia, patient presently on 100% FiO2, on BiPAP with PEEP. Patient presently optimized on BiPAP machine increase risk of decompensation to full-blown respiratory failure that may require medical ventilation (2) COVID-19 Is this a current diagnosis for this admission?: Yes Plan: He has COVID-19, received convalescent plasma, on IV dexamethasone, received IV remdesivir (3) Pneumonia, unspecified organism Is this a current diagnosis for this admission?: Yes (4) Thrombocytopenia, unspecified Is this a current diagnosis for this admission?: Yes - Time Time Spent with patient: 35 or more minutes Level of Care: IMCU Medications reviewed and adjusted accordingly: Yes Anticipated discharge: Home Anticipated DC Timeframe: Other
[2020-10-09] MEDS: TAMSULOSIN HCL 0.4 MG CAP.SR.24H PO SCH (17:14)
[2020-10-09] MEDS ORDERED: ONDANSETRON HCL INJ/PF 4 MG/2 ML SDV IV ONE (19:30)
[2020-10-09] MEDS ORDERED: ONDANSETRON HCL INJ/PF 4 MG/2 ML SDV IV PRN (19:30)
[2020-10-09] MEDS: MELATONIN 5 MG TABLET PO PRN (21:51)
[2020-10-09] MEDS: ACETAMINOPHEN 325 MG TABLET PO PRN (21:51)
[2020-10-09] MEDS: ATORVASTATIN CALCIUM 40 MG TABLET PO SCH (21:51)
[2020-10-09] MEDS: INSULIN GLARGINE,HUM.REC.ANLOG 1,000 UNIT/10 ML VIAL SUBCUT SCH (21:52)
[2020-10-10] MEDS: DEXTROSE 5%-1/2 NORMAL SALINE 1,000 ML IV PRN ×2 (01:00→15:19)
[2020-10-10] MEDS: PANTOPRAZOLE SODIUM 40 MG TABLET.DR PO SCH (05:32)
[2020-10-10 05:36] LABS: HEMATOCRIT 35.8 % (37.9-51.0); HEMOGLOBIN 11.8 g/dL (13.5-17.0); MEAN CORPUSCULAR HEMOGLOBIN 26.3 pg (27.0-33.4); MEAN CORPUSCULAR HGB CONC 32.9 g/dL (32.0-36.0); MEAN CORPUSCULAR VOLUME 80 fl (80-97); PLATELET COUNT 106 10^3/uL (150-450); RED BLOOD COUNT 4.46 10^6/uL (4.35-5.55); RED CELL DISTRIBUTION WIDTH 14.6 % (11.5-14.0); WHITE BLOOD COUNT 8.4 10^3/uL (4.0-10.5)
[2020-10-10 06:08] LABS: ALBUMIN 2.5 g/dL (3.5-5.0); ALKALINE PHOSPHATASE 81 U/L (38-126); ANION GAP 6 (5-19); ASPARTATE AMINO TRANSFERASE 27 U/L (17-59); BILIRUBIN,DIRECT 0.3 mg/dL (0.0-0.4); BILIRUBIN,TOTAL 0.9 mg/dL (0.2-1.3); BLOOD UREA NITROGEN 35 mg/dL (7-20); CALCIUM 8.6 mg/dL (8.4-10.2); CARBON DIOXIDE 26 mmol/L (22-30); CHLORIDE 101 mmol/L (98-107); GLUCOSE 151 mg/dL (75-110); POTASSIUM 4.8 mmol/L (3.6-5.0)
[2020-10-10] MEDS: INSULIN LISPRO 100 UNIT/ML 3 ML VIAL SUBCUT SCH ×7 (08:19→22:38)
[2020-10-10] MEDS: CEFEPIME 1 GM/D5W RTU 1 GM/50 ML RTUPB IV SCH (10:32)
[2020-10-10] MEDS: ENOXAPARIN SODIUM INJ 40 MG/0.4 ML DISP.SYRIN SUBCUT SCH (10:32)
[2020-10-10] MEDS: DEXAMETHASONE SOD PHOSPHATE INJ 4 MG/1 ML VIAL IV SCH ×2 (10:33→17:40)
[2020-10-10] MEDS: BENZONATATE 100 MG CAPSULE PO SCH ×2 (10:33→22:39)
[2020-10-10] MEDS: FENOFIBRATE NANOCRYSTALLIZED 145 MG TABLET PO SCH (10:33)
[2020-10-10] MEDS: AMLODIPINE BESYLATE 10 MG TABLET PO SCH (10:33)
--- NOTE | 2020-10-10 11:15 | PDOC PROGRESS REPORT ---
Subjective Date:: 10/10/20 Subjective:: Patient is currently doing fair alert awake oriented x3 denied any chest pain pa tient's wants to eat According to the nursing staff patients desaturate very easily even on the BiPAP yesterday the fellmongering machine operator was consulted and suggest that continues the current BiPAP no further intervention at this point and no need for ICU Patient already received the plasma treatments antiviral treatments continues the steroid and antibiotics Patient's visited yesterday she also have a Covid which apparently the nursing staff does not know anything about the patient's Covid situations Reason For Visit: LEFT LOWER LOBE PNEUMONIA;EXACERBATED COPD,PUI FOR Physical Exam Vital Signs: Temp Pulse Resp BP Pulse Ox 97.9 F 60 19 147/71 H 98 10/10/20 08:00 10/10/20 08:00 10/10/20 08:00 10/10/20 08:00 10/10/20 08:00 Pulse Oximeter Continuous Start: 10/03/20 08:46 Freq: RTQ4 Status: Complete Protocol: Document 10/10/20 03:49 CMI (Rec: 10/10/20 04:06 CMI [id number]) Pulse Oximetry Assessment Oxygen Saturation (92-100) 97 Oxygen Delivery Method CPAP Fraction of Inspired Oxygen (FIO2) 100 Equipment Usage Equipment Standby Continuous SpO2 Machine # on nurse monitor Intake & Output 10/09/20 10/10/20 10/11/20 06:59 06:59 06:59 Intake Total 1550 2060 Output Total 1675 800 Balance -125 1260 Weight 74.1 kg 82.7 kg General appearance: PRESENT: mild distress Eye exam: PRESENT: PERRLA Mouth exam: PRESENT: neck supple Respiratory exam: PRESENT: decreased breath sounds Cardiovascular exam: PRESENT: +S1, +S2 GI/Abdominal exam: PRESENT: normal bowel sounds, soft Neurological exam: PRESENT: alert, awake, oriented to person, oriented to place Results Laboratory Results: 10/10/20 04:52 10/10/20 04:52 10/10/20 10/10/20 04:52 04:52 WBC 8.4 RBC 4.46 Hgb 11.8 L Hct 35.8 L MCV 80 MCH 26.3 L MCHC 32.9 RDW 14.6 H Plt Count 106 L Sodium 133.0 L Potassium 4.8 Chloride 101 Carbon Dioxide 26 Anion Gap 6 BUN 35 H Creatinine 0.83 Est GFR ( Amer) > 60 Glucose 151 H Calcium 8.6 Total Bilirubin 0.9 AST 27 Alkaline Phosphatase 81 Total Protein 5.0 L Albumin 2.5 L Impressions: Chest CT 10/03/20 08:46 IMPRESSION: There has been a significant increase in bilateral airspace dis ease. There is involvement of both the upper and lower lobes. Changes are more prominent in the lung periphery. There are areas of ground-glass opacity with surrounding dense consolidation. There is bronchiectasis. Pulmonary nodule previously described is no longer identified and most likely was related to infectious or inflammatory process. Chest X-Ray 10/07/20 00:00 IMPRESSION: Diffuse parenchymal opacities throughout both lungs. Marked deterioration from previous. Assessment & Plan - Diagnosis (1) Pneumonia due to 2019-nCoV Is this a current diagnosis for this admission?: Yes (2) Hyperlipidemia Qualifiers: Hyperlipidemia type: unspecified Qualified Code(s): E78.5 - Hyperlipidemia, unspecified Is this a current diagnosis for this admission?: Yes (3) Hypertension Qualifiers: Hypertension type: essential hypertension Qualified Code(s): I10 - Essential (primary) hypertension Is this a current diagnosis for this admission?: Yes (4) Severe thrombocytopenia Is this a current diagnosis for this admission?: Yes (5) Sleep apnea syndrome Qualifiers: Sleep apnea type: unspecified type Is this a current diagnosis for this admission?: Yes (6) Type 2 diabetes mellitus Qualifiers: 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 insulin 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
[2020-10-10] MEDS: FLUTICASONE/UMECLIDIN/VILANTER 100-62.5-25 MCG/DOSE IH SCH (11:36)
--- NOTE | 2020-10-10 12:15 | RADIOLOGY REPORT (SQ) ---
EXAM DESCRIPTION: CHEST SINGLE VIEW IMAGES COMPLETED DATE/TIME: 10/10/2020 11:52 am REASON FOR STUDY: Pneumonia COMPARISON: 10/07/2020 NUMBER OF VIEWS: One view. TECHNIQUE: Single frontal radiographic image of the chest acquired. LIMITATIONS: None. FINDINGS: LUNGS AND PLEURA: Stable appearance. MEDIASTINUM AND HILAR STRUCTURES: Stable heart size and mediastinal structures. HEART AND VASCULAR STRUCTURES: Stable appearance. BONES: No acute findings. HARDWARE: None in the chest. OTHER: No other significant finding. IMPRESSION: STABLE APPEARANCE OF THE CHEST. TECHNICAL DOCUMENTATION: JOB ID: [id number] 2010 [employer]- All Rights Reserved Reading location - IP/workstation name: [email or web address]
[2020-10-10] MEDS: TAMSULOSIN HCL 0.4 MG CAP.SR.24H PO SCH (17:40)
[2020-10-10] MEDS: INSULIN GLARGINE,HUM.REC.ANLOG 1,000 UNIT/10 ML VIAL SUBCUT SCH (22:38)
[2020-10-10] MEDS: ATORVASTATIN CALCIUM 40 MG TABLET PO SCH (22:39)
[2020-10-11 05:26] LABS: HEMATOCRIT 37.4 % (37.9-51.0); HEMOGLOBIN 12.3 g/dL (13.5-17.0); MEAN CORPUSCULAR HEMOGLOBIN 26.1 pg (27.0-33.4); MEAN CORPUSCULAR HGB CONC 32.9 g/dL (32.0-36.0); MEAN CORPUSCULAR VOLUME 79 fl (80-97); PLATELET COUNT 108 10^3/uL (150-450); RED BLOOD COUNT 4.71 10^6/uL (4.35-5.55); RED CELL DISTRIBUTION WIDTH 14.3 % (11.5-14.0); WHITE BLOOD COUNT 8.4 10^3/uL (4.0-10.5)
[2020-10-11] MEDS: DEXTROSE 5%-1/2 NORMAL SALINE 1,000 ML IV PRN ×2 (05:31→21:37)
[2020-10-11] MEDS: PANTOPRAZOLE SODIUM 40 MG TABLET.DR PO SCH (05:31)
[2020-10-11 05:45] LABS: ANION GAP 6 (5-19); BLOOD UREA NITROGEN 32 mg/dL (7-20); CALCIUM 8.9 mg/dL (8.4-10.2); CARBON DIOXIDE 28 mmol/L (22-30); CHLORIDE 98 mmol/L (98-107); GLUCOSE 232 mg/dL (75-110)
[2020-10-11 06:07] LABS: ABSOLUTE LYMPHOCYTES# (MANUAL) 0.4 10^3/uL (0.5-4.7); BASOPHILS % (MANUAL) 0 % (0-2); EOSINOPHILS % (MANUAL) 0 % (0-6); LYMPHOCYTES % (MANUAL) 5 % (13-45); MONOCYTES % (MANUAL) 0 % (3-13); SEGMENTED NEUTROPHILS % (MAN) 95 % (42-78); TOTAL CELLS COUNTED 100
[2020-10-11 06:10] LABS: PLATELET COMMENT ADEQUATE
[2020-10-11 06:11] LABS: ANISOCYTOSIS SLIGHT; HYPOCHROMASIA SLIGHT
[2020-10-11] MEDS: FENOFIBRATE NANOCRYSTALLIZED 145 MG TABLET PO SCH (10:32)
[2020-10-11] MEDS: AMLODIPINE BESYLATE 10 MG TABLET PO SCH (10:32)
[2020-10-11] MEDS: BENZONATATE 100 MG CAPSULE PO SCH ×2 (10:33→21:23)
[2020-10-11] MEDS: DEXAMETHASONE SOD PHOSPHATE INJ 4 MG/1 ML VIAL IV SCH ×2 (10:33→17:23)
[2020-10-11] MEDS: INSULIN LISPRO 100 UNIT/ML 3 ML VIAL SUBCUT SCH ×7 (10:33→21:22)
[2020-10-11] MEDS: ENOXAPARIN SODIUM INJ 40 MG/0.4 ML DISP.SYRIN SUBCUT SCH (10:34)
[2020-10-11] MEDS ORDERED: PHENOL/SODIUM PHENOLATE 100 SPRAY/177 ML BOTTLE PO PRN (10:42)
[2020-10-11] MEDS: BENZOCAINE/MENTHOL SORE THROAT LOZENGE BUCCAL PRN ×2 (10:51→17:24)
[2020-10-11] MEDS: FLUTICASONE/UMECLIDIN/VILANTER 100-62.5-25 MCG/DOSE IH SCH (10:56)
--- NOTE | 2020-10-11 11:57 | PDOC PROGRESS REPORT ---
Subjective Date:: 10/11/20 Subjective:: Patient is currently doing same Denied any chest pain Patient is still require BiPAP Patient is currently on IV steroids IV antibiotic Patient's platelet count is 108 as per discussed with the albacore fishing boat crewman continues the same dose of steroid Patient's PO is a big challengeDue to the BiPAP Reason For Visit: LEFT LOWER LOBE PNEUMONIA;EXACERBATED COPD,PUI FOR Physical Exam Vital Signs: Temp Pulse Resp BP Pulse Ox 97.5 F 65 20 142/72 H 95 10/11/20 07:59 10/11/20 07:59 10/11/20 11:37 10/11/20 07:59 10/11/20 11:37 Pulse Oximeter Continuous Start: 10/03/20 08:46 Freq: RTQ4 Status: Complete Protocol: Document 10/10/20 03:49 CMI (Rec: 10/10/20 04:06 CMI [email or web address]) Pulse Oximetry Assessment Oxygen Saturation (92-100) 97 Oxygen Delivery Method CPAP Fraction of Inspired Oxygen (FIO2) 100 Equipment Usage Equipment Standby Continuous SpO2 Machine # on nurse monitor Intake & Output 10/10/20 10/11/20 10/12/20 06:59 06:59 06:59 Intake Total 2060 2494 Output Total 800 1575 Balance 1260 919 Weight 82.7 kg 79.6 kg General appearance: PRESENT: no acute distress Eye exam: PRESENT: PERRLA Mouth exam: PRESENT: neck supple Respiratory exam: PRESENT: clear to auscultation raya Cardiovascular exam: PRESENT: +S1, +S2 Neurological exam: PRESENT: alert, awake, oriented to person, oriented to place Results Laboratory Results: 10/11/20 04:34 10/11/20 04:34 10/11/20 10/11/20 04:34 04:34 WBC 8.4 RBC 4.71 Hgb 12.3 L Hct 37.4 L MCV 79 L MCH 26.1 L MCHC 32.9 RDW 14.3 H Plt Count 108 L Seg Neutrophils % Not Reportable Sodium 131.5 L Potassium 5.0 Chloride 98 Carbon Dioxide 28 Anion Gap 6 BUN 32 H Creatinine 0.75 Est GFR ( Amer) > 60 Glucose 232 H Calcium 8.9 Impressions: Chest CT 10/03/20 08:46 IMPRESSION: There has been a significant increase in bilateral airspace disease. There is involvement of both the upper and lower lobes. Changes are more prominent in the lung periphery. There are areas of ground-glass opacity with surrounding dense consolidation. There is bronchiectasis. Pulmonary nodule previously described is no longer identified and most likely was related to infectious or inflammatory process. Chest X-Ray 10/10/20 00:00 IMPRESSION: STABLE APPEARANCE OF THE CHEST. Assessment & Plan - Diagnosis (1) Pneumonia due to 2019-nCoV Is this a current diagnosis for this admission?: Yes (2) Hyperlipidemia Qualifiers: Hyperlipidemia type: unspecified Qualified Code(s): E78.5 - Hyperlipidemia, unspecified Is this a current diagnosis for this admission?: Yes (3) Hypertension Qualifiers: Hypertension type: essential hypertension Qualified Code(s): I10 - Essential (primary) hypertension Is this a current diagnosis for this admission?: Yes (4) Severe thrombocytopenia Is this a current diagnosis for this admission?: Yes (5) Sleep apnea syndrome Qualifiers: Sleep apnea type: unspecified type Is this a current diagnosis for this admission?: Yes (6) Type 2 diabetes mellitus 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
[2020-10-11 16:41] LABS: ARTERIAL BLOOD BASE EXCESS 2.8 mmol/L; ARTERIAL BLOOD H2CO3 1.45 mmol/L (1.05-1.35); ARTERIAL BLOOD HCO3 28.6 mmol/L (20-24); ARTERIAL BLOOD O2 SATURATION 97.1 % (94-98); ARTERIAL BLOOD PCO2 48.1 mmHg (35-45); ARTERIAL BLOOD PH 7.39 (7.35-7.45); ARTERIAL BLOOD TOTAL CO2 30.1 mmol/L (23-27)
[2020-10-11 16:43] LABS: ARTERIAL BLOOD FIO2 100%
[2020-10-11] MEDS: TAMSULOSIN HCL 0.4 MG CAP.SR.24H PO SCH (17:23)
[2020-10-11] MEDS: ATORVASTATIN CALCIUM 40 MG TABLET PO SCH (21:23)
[2020-10-11] MEDS: INSULIN GLARGINE,HUM.REC.ANLOG 1,000 UNIT/10 ML VIAL SUBCUT SCH (21:23)
[2020-10-12 05:28] LABS: ANION GAP 6 (5-19); BLOOD UREA NITROGEN 30 mg/dL (7-20); CALCIUM 8.8 mg/dL (8.4-10.2); CARBON DIOXIDE 28 mmol/L (22-30); CHLORIDE 97 mmol/L (98-107); GLUCOSE 184 mg/dL (75-110); POTASSIUM 5.1 mmol/L (3.6-5.0)
[2020-10-12] MEDS: PANTOPRAZOLE SODIUM 40 MG TABLET.DR PO SCH (05:41)
[2020-10-12] MEDS: INSULIN LISPRO 100 UNIT/ML 3 ML VIAL SUBCUT SCH ×7 (07:56→22:08)
[2020-10-12] MEDS: BENZONATATE 100 MG CAPSULE PO SCH ×2 (09:16→22:09)
[2020-10-12] MEDS: AMLODIPINE BESYLATE 10 MG TABLET PO SCH (09:16)
[2020-10-12] MEDS: ENOXAPARIN SODIUM INJ 40 MG/0.4 ML DISP.SYRIN SUBCUT SCH (09:16)
[2020-10-12] MEDS: FENOFIBRATE NANOCRYSTALLIZED 145 MG TABLET PO SCH (09:17)
[2020-10-12] MEDS: FLUTICASONE/UMECLIDIN/VILANTER 100-62.5-25 MCG/DOSE IH SCH (09:17)
[2020-10-12] MEDS: DEXAMETHASONE SOD PHOSPHATE INJ 4 MG/1 ML VIAL IV SCH ×2 (09:17→17:22)
--- NOTE | 2020-10-12 11:26 | PDOC PROGRESS REPORT ---
Subjective Date:: 10/12/20 Subjective:: Patient is currently doing fair still on the BiPAP Patient's put on a high flow oxygen's unable to eat No chest pain Reason For Visit: LEFT LOWER LOBE PNEUMONIA;EXACERBATED COPD,PUI FOR Physical Exam Vital Signs: Temp Pulse Resp BP Pulse Ox 98.0 F 70 17 147/74 H 97 10/12/20 07:20 10/12/20 07:20 10/12/20 08:10 10/12/20 07:20 10/12/20 08:10 Pulse Oximeter Continuous Start: 10/03/20 08:46 Freq: RTQ4 Status: Complete Protocol: Document 10/10/20 03:49 CMI (Rec: 10/10/20 04:06 CMI [id number]) Pulse Oximetry Assessment Oxygen Saturation (92-100) 97 Oxygen Delivery Method CPAP Fraction of Inspired Oxygen (FIO2) 100 Equipment Usage Equipment Standby Continuous SpO2 Machine # on nurse monitor Intake & Output 10/11/20 10/12/20 10/13/20 06:59 06:59 06:59 Intake Total 2494 1240 Output Total 1575 1375 Balance 919 -135 Weight 79.6 kg 80.2 kg General appearance: PRESENT: no acute distress Eye exam: PRESENT: PERRLA Mouth exam: PRESENT: neck supple Respiratory exam: PRESENT: decreased breath sounds Neurological exam: PRESENT: alert, awake, oriented to person, oriented to place Skin exam: PRESENT: dry Results Laboratory Results: 10/11/20 04:34 10/12/20 04:14 10/11/20 10/12/20 16:13 04:14 Carbonic Acid 1.45 H HCO3/H2CO3 Ratio 19:1 ABG pH 7.39 ABG pCO2 48.1 H ABG pO2 95.0 ABG HCO3 28.6 H ABG O2 Saturation 97.1 ABG Base Excess 2.8 FiO2 100% Sodium 131.1 L Potassium 5.1 H Chloride 97 L Carbon Dioxide 28 Anion Gap 6 BUN 30 H Creatinine 0.69 Est GFR ( Amer) > 60 Glucose 184 H Calcium 8.8 Impressions: Chest CT 10/03/20 08:46 IMPRESSION: There has been a significant increase in bilateral airspace disea se. There is involvement of both the upper and lower lobes. Changes are more prominent in the lung periphery. There are areas of ground-glass opacity with surrounding dense consolidation. There is bronchiectasis. Pulmonary nodule previously described is no longer identified and most likely was related to infectious or inflammatory process. Chest X-Ray 10/10/20 00:00 IMPRESSION: STABLE APPEARANCE OF THE CHEST. Assessment & Plan - Diagnosis (1) Pneumonia due to 2019-nCoV Is this a current diagnosis for this admission?: Yes (2) Hyperlipidemia Qualifiers: Hyperlipidemia type: unspecified Qualified Code(s): E78.5 - Hyperlipidemia, unspecified Is this a current diagnosis for this admission?: Yes (3) Hypertension Qualifiers: Hypertension type: essential hypertension Qualified Code(s): I10 - Essential (primary) hypertension Is this a current diagnosis for this admission?: Yes (4) Severe thrombocytopenia Is this a current diagnosis for this admission?: Yes (5) Sleep apnea syndrome Qualifiers: Sleep apnea type: unspecified type Is this a current diagnosis for this admission?: Yes (6) Type 2 diabetes mellitus Qualifiers: Diabetes mellitus jail insulin use: unspecified jail insulin use status Diabetes mellitus complication status: without complication Qualified Code(s): E11.9 - Type 2 diabetes mellitus without complications Is this a current diagnosis for this admission?: Yes - Time Time Spent with patient: 15-24 minutes Level of Care: IMCU Medications reviewed and adjusted accordingly: Yes Anticipated discharge: Other Anticipated DC Timeframe: Other - Plan Summary Plan Summary: We will get the CT angiogram today as to Dr. Ndiaye to see for adjustment of the BiPAP continues the current medications very extensive discussions with the patient's regarding the patient's current conditions
[2020-10-12] MEDS: DEXTROSE 5%-1/2 NORMAL SALINE 1,000 ML IV PRN (13:45)
--- NOTE | 2020-10-12 15:21 | RADIOLOGY REPORT (SQ) ---
EXAM DESCRIPTION: CTA CHEST IMAGES COMPLETED DATE/TIME: 10/12/2020 2:33 pm REASON FOR STUDY: PNA/COVID COMPARISON: CT of the chest from 10/03/2020. TECHNIQUE: CT scan of the chest performed using helical scanning technique with dynamic intravenous contrast injection. Images reviewed with lung, soft tissue and bone windows. Reconstructed coronal and sagittal MPR images reviewed. Additional 3 dimensional post-processing performed to develop Maximal Intensity Projection images (DC P). All images stored on PACS. All CT scanners at this facility use dose modulation, iterative reconstruction, and/or weight based d osing when appropriate to reduce radiation dose to as low as reasonably achievable (ALARA). [facility]: Dose Right [facility]: CareDose [facility]: Dose Right [facility]: Teradose 4D [facility]: [place] CONTRAST TYPE AND DOSE: contrast/concentration: Isovue 350.00 mmol/ml; Total Contrast Delivered: 60. 0 ml; Total Saline Delivered: 80.0 ml Contrast bolus optimized for the pulmonary arteries. RENAL FUNCTION: Creatinine 0.69 milligrams/deciliter. RADIATION DOSE: CT Rad equipment meets quality standard of care and radiation dose reduction techniq ues were employed. CTDIvol: 14.4 - 28.2 mGy. DLP: 549 mGy-cm. LIMITATIONS: None. FINDINGS: LUNGS AND PLEURA: The trachea and main bronchi are patent. The degree of bronchiectasis is unchanged. There are new diffuse alveolar ground-glass opacities. The patchy areas of dense consol idation in the lower lobes and to a lesser extent the right middle lobe and lingula described on the CT from 10/03/2020 have improved. There is no pleural effusion or pneumothorax. AORTA AND GREAT VESSELS: There is a variant 2 vessel arch with a common origin of brachiocephalic and left common carotid arteries. There is no thoracic aortic dissection or aneurysm. HEART: Cardiomegaly and atherosclerotic calcification of the coronary arteries. There is no pericard ial effusion. PULMONARY ARTERIES: No emboli. HILAR AND MEDIASTINAL STRUCTURES: AP window, right upper paratracheal, right lower paratracheal, left lower paratracheal, sub- carinal and hilar lymph nodes that have marginally increased in size since the CT from 10/03/2020. HARDWARE: None in the chest. UPPER ABDOMEN: No acute abnormality. THYROID AND OTHER SOFT TISSUES: No mass or asymmetry. BONES: Chronic fractures of several right-sided ribs. 3D MIPS: Confirm above findings. OTHER: No other findings. IMPRESSION: Since the CT from 10/03/2020 the patient has developed new diffuse alveolar ground-glass opacities and the patchy areas of dense consolidation in the lower lobes and to a lesser extent the right middle lobe and lingula have improved. There is no pulmonary embolus. COMMENT: Quality ID # [id number]: Final reports with documentation of one or more dose reduction techniques (e.g., Automated exposure control, adjustment of the mA and/or kV according to patient size, use of iterative reconstruction technique) TECHNICAL DOCUMENTATION: JOB ID: [id number] 2010 [employer]- All Rights Reserved Reading location - IP/workstation name: [email or web address]
[2020-10-12] MEDS: TAMSULOSIN HCL 0.4 MG CAP.SR.24H PO SCH (17:22)
[2020-10-12] MEDS: CEFEPIME 1 GM/D5W RTU 1 GM/50 ML RTUPB IV SCH (17:25)
[2020-10-12] MEDS ORDERED: DOXYCYCLINE HYCLATE 100 MG in DEXTROSE 5%-WATER 250 ML IV SCH (22:00)
[2020-10-12] MEDS: INSULIN GLARGINE,HUM.REC.ANLOG 1,000 UNIT/10 ML VIAL SUBCUT SCH (22:09)
[2020-10-12] MEDS: ATORVASTATIN CALCIUM 40 MG TABLET PO SCH (22:09)
[2020-10-12] MEDS: DOXYCYCLINE HYCLATE 100 MG in DEXTROSE 5%-WATER 250 ML IV SCH (22:10)
[2020-10-13 05:30] LABS: ABSOLUTE LYMPHOCYTES (AUTO) 0.6 10^3/uL (0.5-4.7); ABSOLUTE MONOCYTES (AUTO) 0.6 10^3/uL (0.1-1.4); ABSOLUTE NEUT (AUTO) 7.9 10^3/uL (1.7-8.2); BASOPHILS % (AUTO) 0.1 % (0-2); EOSINOPHILS % (AUTO) 0.2 % (0-6); HEMATOCRIT 34.7 % (37.9-51.0); HEMOGLOBIN 11.5 g/dL (13.5-17.0); LYMPHOCYTES % (AUTO) 6.3 % (13-45); MEAN CORPUSCULAR HEMOGLOBIN 26.1 pg (27.0-33.4); MEAN CORPUSCULAR HGB CONC 33.2 g/dL (32.0-36.0); MEAN CORPUSCULAR VOLUME 79 fl (80-97); MONOCYTES % (AUTO) 6.7 % (3-13); RED BLOOD COUNT 4.41 10^6/uL (4.35-5.55); RED CELL DISTRIBUTION WIDTH 14.2 % (11.5-14.0); SEGMENTED NEUTROPHILS % (AUTO) 86.7 % (42-78); TOTAL CELLS COUNTED % (AUTO) 100 %; WHITE BLOOD COUNT 9.1 10^3/uL (4.0-10.5)
[2020-10-13 05:38] LABS: BLOOD UREA NITROGEN 28 mg/dL (7-20); CALCIUM 8.8 mg/dL (8.4-10.2); GLUCOSE 147 mg/dL (75-110); POTASSIUM 4.7 mmol/L (3.6-5.0)
[2020-10-13 05:44] LABS: CARBON DIOXIDE 31 mmol/L (22-30); CHLORIDE 98 mmol/L (98-107)
[2020-10-13 05:47] LABS: ANION GAP 4 (5-19)
[2020-10-13] MEDS: PANTOPRAZOLE SODIUM 40 MG TABLET.DR PO SCH (05:49)
[2020-10-13] MEDS: CEFEPIME 1 GM/D5W RTU 1 GM/50 ML RTUPB IV SCH ×2 (05:49→17:15)
[2020-10-13] MEDS: DEXTROSE 5%-1/2 NORMAL SALINE 1,000 ML IV PRN ×2 (05:50→23:14)
[2020-10-13 06:02] LABS: PLATELET COUNT 73 10^3/uL (150-450)
[2020-10-13] MEDS: INSULIN LISPRO 100 UNIT/ML 3 ML VIAL SUBCUT SCH ×7 (07:51→23:38)
--- NOTE | 2020-10-13 08:54 | PDOC PROGRESS REPORT ---
Subjective Date:: 10/13/20 Subjective:: Patient is currently doing same Still 100% FiO2 on the BiPAP Patient CT angiogram negative for PE but's pneumonia discussed with the Dr. Cole start on IV antibiotic to treat with the Covid and a community-acquired pneumonia Reason For Visit: LEFT LOWER LOBE PNEUMONIA;EXACERBATED COPD,PUI FOR Physical Exam Vital Signs: Temp Pulse Resp BP Pulse Ox 98.4 F 72 18 149/76 H 96 10/13/20 08:15 10/13/20 07:37 10/13/20 07:37 10/13/20 07:37 10/13/20 07:37 Pulse Oximeter Continuous Start: 10/03/20 08:46 Freq: RTQ4 Status: Complete Protocol: Document 10/10/20 03:49 CMI (Rec: 10/10/20 04:06 CMI [id number]) Pulse Oximetry Assessment Oxygen Saturation (92-100) 97 Oxygen Delivery Method CPAP Fraction of Inspired Oxygen (FIO2) 100 Equipment Usage Equipment Standby Continuous SpO2 Machine # on nurse monitor Intake & Output 10/12/20 10/13/20 10/14/20 06:59 06:59 06:59 Intake Total 1240 3040 Output Total 1375 1850 Balance -135 1190 Weight 80.2 kg 79.2 kg General appearance: PRESENT: no acute distress Neurological exam: PRESENT: alert, awake, oriented to person, oriented to place, oriented to time, oriented to situation Results Laboratory Results: 10/13/20 04:13 10/13/20 04:13 10/13/20 10/13/20 04:13 04:13 WBC 9.1 RBC 4.41 Hgb 11.5 L Hct 34.7 L MCV 79 L MCH 26.1 L MCHC 33.2 RDW 14.2 H Plt Count 73 L Seg Neutrophils % 86.7 H Sodium 133.0 L Potassium 4.7 Chloride 98 Carbon Dioxide 31 H Anion Gap 4 L BUN 28 H Creatinine 0.77 Est GFR ( Amer) > 60 Glucose 147 H Calcium 8.8 Impressions: Chest CT 10/03/20 08:46 IMPRESSION: There has been a significant increase in bilateral airspace disease. There is involvement of both the upper and lower lobes. Changes are more prominent in the lung periphery. There are areas of ground-glass opacity with surrounding dense consolidation. There is bronchiectasis. Pulmonary nodule previously described is no longer identified and most likely was related to infectious or inflammatory process. Chest X-Ray 10/10/20 00:00 IMPRESSION: STABLE APPEARANCE OF THE CHEST. Chest/Abdomen CTA 10/12/20 00:00 IMPRESSION: Since the CT from 10/03/2020 the patient has developed new diffuse alveolar ground-glass opacities and the patchy areas of dense consolidation in the lower lobes and to a lesser extent the right middle lobe and lingula have improved. There is no pulmonary embolus. Assessment & Plan - Diagnosis (1) Pneumonia due to 2019-nCoV Is this a current diagnosis for this admission?: Yes (2) Hyperlipidemia Qualifiers: Hyperlipidemia type: unspecified Qualified Code(s): E78.5 - Hyperlipidemia, unspecified Is this a current diagnosis for this admission?: Yes (3) Hypertension Qualifiers: Hypertension type: essential hypertension Qualified Code(s): I10 - Essential (primary) hypertension Is this a current diagnosis for this admission?: Yes (4) Severe thrombocytopenia Is this a current diagnosis for this admission?: Yes (5) Sleep apnea syndrome Qualifiers: Sleep apnea type: unspecified type Is this a current diagnosis for this admission?: Yes (6) Type 2 diabetes mellitus Qualifiers: Diabetes mellitus [facility] insulin use: unspecified [facility] insulin use status Diabetes mellitus complication status: without complication Qualified Code(s): E11.9 - Type 2 diabetes mellitus without complications Is this a current diagnosis for this admission?: Yes - Time Time Spent with patient: 15-24 minutes Level of Care: IMCU Medications reviewed and adjusted accordingly: Yes Anticipated discharge: Home with Homehealth Anticipated DC Timeframe: Other - Plan Summary Plan Summary: Continues the current medications
[2020-10-13] MEDS: BENZONATATE 100 MG CAPSULE PO SCH ×2 (10:24→23:18)
[2020-10-13] MEDS: AMLODIPINE BESYLATE 10 MG TABLET PO SCH (10:24)
[2020-10-13] MEDS: DEXAMETHASONE SOD PHOSPHATE INJ 4 MG/1 ML VIAL IV SCH ×2 (10:24→17:14)
[2020-10-13] MEDS: FENOFIBRATE NANOCRYSTALLIZED 145 MG TABLET PO SCH (10:24)
[2020-10-13] MEDS: FLUTICASONE/UMECLIDIN/VILANTER 100-62.5-25 MCG/DOSE IH SCH (10:25)
[2020-10-13] MEDS: ENOXAPARIN SODIUM INJ 40 MG/0.4 ML DISP.SYRIN SUBCUT SCH (10:25)
[2020-10-13] MEDS: DOXYCYCLINE HYCLATE 100 MG in DEXTROSE 5%-WATER 250 ML IV SCH ×2 (10:56→23:17)
--- NOTE | 2020-10-13 12:31 | PDOC CONSULTATION ---
Consultation Consult Date: 10/12/20 Attending physician:: ZAIRE GEIGER Provider Consulted: JAKOB RODRÍGUEZ Consult reason:: covid-19,pna,hypoxia History of Present Illness Admission Date/PCP: 10/01/20 15:17 ZAIRE GEIGER MD History of Present Illness: TAHIR FOURNIER is a 64 year old male,Presented to the emergency room complaining increasing shortness of breath after having been treated as an outpatient for pneumonia he subsequently was admitted for pneumonia and thrombocytopenia which improved. However he continued her shortness of breath and infiltrates on his chest in reviewing his current x-rays infiltrates there more pronounced than he had been in the past. He admits to smoking half pack a day for 40 years. He has no significant occupational exposure potential respiratory toxins he denies angina-like chest pain sleeps on 2 pillows no PND no nocturnal cough. Past Medical History Cardiac Medical History: Reports: Coronary Artery Disease - CARDIAC STENTS X5, Hyperlipidema, Hypertension Denies: Atrial Fibrillation, Congestive Heart Failure, Myocardial Infarction, Peripheral Vascular Disease, Pulmonary Embolism Pulmonary Medical History: Reports: Asthma, Bronchitis, Chronic Obstructive Pulmonary Disease (COPD), Pneumonia, Sleep Apnea Denies: Respiratory Failure, Tuberculosis Neurological Medical History: Denies: Seizures Endocrine Medical History: Reports: Diabetes Mellitus Type 1, Diabetes Mellitus Type 2 Denies: Hyperthyroidism, Hypothyroidism Renal/ Medical History: Denies: End Stage Renal Disease Malignancy Medical History: Denies: Leukemia, Lung Cancer GI Medical History: Reports: Gastroesophageal Reflux Disease, Hiatal Hernia Denies: Crohn's Disease Musculoskeltal Medical History: Reports: Arthritis - bursitis left shoulder, back bone spurs Denies: Fibromyalgia Psychiatric Medical History: Denies: Bipolar Disorder, Dementia, Depression, Post Traumatic Stress Disorder Hematology: Reports: Anemia Infectious Medical History: Denies: HIV Past Surgical History Past Surgical History: Reports: Cardiac Catheterization - 5 stents, Cholecystectomy, Coronary Stent - X5, Orthopedic Surgery - right leg, back surgery, Tonsillectomy Denies: Appendectomy, Colostomy, Coronary Artery Bypass Graft, Gastric Bypass Surgery, Herniorrhaphy, Pacemaker Social History Information Source: [facility] Records Smoking Status: Former Smoker Cigarettes Packs Per Day: 1 Number of Years Smokin Passive smoke exposure as: Both Frequency of Alcohol Use: None Hx Recreational Drug Use: No Drugs: None Hx Prescription Drug Abuse: No Do you have pets?: No Have you had any respiratory illnesses as a child?: No Have you been exposed to any sick contacts recently?: No Have you had any recent respiratory illnesses?: No Have you travelled outside of [place] in the past 12 months?: No - Advance Directive Resuscitation Status: Full Code Family History Family History: Arthritis, CAD, CVA, DM, Hyperlipidemia, Hypertension, Malignancy Parental Family History Reviewed: Yes Children Family History Reviewed: Yes Sibling(s) Family History Reviewed.: Yes Medication/Allergy Home Medications: Amlodipine Besylate [Norvasc 10 mg Tablet] 10 mg PO DAILY 12/24/19 Atorvastatin Calcium [Lipitor 40 mg Tablet] 40 mg PO QHS 12/24/19 Fluticasone/Umeclidin/Vilanter [Trelegy 100-62.5-25 Mcg Ellipta 14 Dose/Dpi] 1 puff IH DAILY 12/24/19 Levocetirizine Dihydrochloride [Xyzal] 5 mg PO DAILY 12/24/19 Montelukast Sodium [Singulair 10 mg Tablet] 10 mg PO QPM 12/24/19 Omeprazole 40 mg PO BID 12/24/19 Tamsulosin HCl [Flomax 0.4 mg Cap.sr] 0.4 mg PO QPM 12/24/19 Fenofibrate Nanocrystallized [Fenofibrate] 145 mg PO DAILY 09/17/20 Insulin Glargine,Hum.rec.anlog [Lantus Insulin 100 Unit/1 ml 10 ml] 30 unit SUBCUT QHS 09/17/20 Insulin Regular, Human [Humulin R (Reg) Insulin 100 unit/mL] 0 unit SUBCUT .SLIDING SCALE 09/17/20 Nitroglycerin [Nitrostat 0.4 mg (1/150 Gr) Tabs 25/Bottle] 1 tab SL Q5MP PRN 09/17/20 Tiotropium Br/Olodaterol HCl [Stiolto Respimat Inhal [place]] 2 puff IH DAILY 09/17/20 Tramadol HCl [Ultram 50 mg Tablet] 50 mg PO QID 09/17/20 Prednisone 10 mg PO DAILY #200 tablet 09/23/20 Furosemide [Lasix 40 mg Tablet] 40 mg PO DAILY 10/02/20 Allergies/Adverse Reactions: clopidogrel bisulfate [From Plavix] Adverse Reaction (Severe, Verified 10/01/20 11:29) bleeding from ear/NOSE Review of Systems All systems: reviewed and no additional remarkable complaints except as stated Physical Exam Vital Signs: Temp Pulse Resp BP Pulse Ox 97.8 F 79 23 H 147/67 H 96 10/12/20 11:50 10/12/20 14:00 10/12/20 14:49 10/12/20 11:50 10/12/20 14:49 Pulse Oximeter Continuous Start: 10/03/20 08:46 Freq: RTQ4 Status: Complete Protocol: Document 10/10/20 03:49 CMI (Rec: 10/10/20 04:06 CMI [id number]) Pulse Oximetry Assessment Oxygen Saturation (92-100) 97 Oxygen Delivery Method CPAP Fraction of Inspired Oxygen (FIO2) 100 Equipment Usage Equipment Standby Continuous SpO2 Machine # on nurse monitor Intake & Output 10/11/20 10/12/20 10/13/20 06:59 06:59 06:59 Intake Total 2494 1240 1480 Output Total 1575 1375 700 Balance 919 -135 780 Weight 79.6 kg 80.2 kg General appearance: PRESENT: no acute distress, cooperative, disheveled, well-developed, well-nourished Head exam: PRESENT: atraumatic, normocephalic Eye exam: PRESENT: conjunctiva pale, EOMI. ABSENT: nystagmus, periorbital swelling, scleral icterus Mouth exam: PRESENT: dry mucosa, neck supple, tongue midline Neck exam: ABSENT: carotid bruit, full ROM, JVD, lymphadenopathy, meningismus, tenderness, thyromegaly, tracheal deviation, tracheostomy, other Respiratory exam: PRESENT: decreased breath sounds, prolonged expiratory phas, rales, rhonchi, symmetrical, unlabored. ABSENT: retraction, stridor, tachypnea Cardiovascular exam: PRESENT: RRR, +S1, +S2, tachycardia Pulses: PRESENT: normal radial pulses GI/Abdominal exam: PRESENT: soft. ABSENT: guarding, mass, rebound, tenderness Extremities exam: PRESENT: full ROM. ABSENT: calf tenderness, clubbing, joint swelling, tenderness Musculoskeletal exam: PRESENT: full ROM. ABSENT: deformity, dislocation Neurological exam: PRESENT: alert, awake Psychiatric exam: PRESENT: flat affect Skin exam: PRESENT: dry, warm Results Laboratory Results: 10/11/20 04:34 10/12/20 04:14 10/11/20 10/12/20 16:13 04:14 Carbonic Acid 1.45 H HCO3/H2CO3 Ratio 19:1 ABG pH 7.39 ABG pCO2 48.1 H ABG pO2 95.0 ABG HCO3 28.6 H ABG O2 Saturation 97.1 ABG Base Excess 2.8 FiO2 100% Sodium 131.1 L Potassium 5.1 H Chloride 97 L Carbon Dioxide 28 Anion Gap 6 BUN 30 H Creatinine 0.69 Est GFR ( Amer) > 60 Glucose 184 H Calcium 8.8 Impressions: Chest CT 10/03/20 08:46 IMPRESSION: There has been a significant increase in bilateral airspace disease. There is involvement of both the upper and lower lobes. Changes are more prominent in the lung periphery. There are areas of ground-glass opacity with surrounding dense consolidation. There is bronchiectasis. Pulmonary nodule previously described is no longer identified and most likely was related to infectious or inflammatory process. Chest X-Ray 10/10/20 00:00 IMPRESSION: STABLE APPEARANCE OF THE CHEST. Chest/Abdomen CTA 10/12/20 00:00 IMPRESSION: Since the CT from 10/03/2020 the patient has developed new diffuse alveolar ground-glass opacities and the patchy areas of dense consolidation in the lower lobes and to a lesser extent the right middle lobe and lingula have improved. There is no pulmonary embolus. Assessment & Plan - Diagnosis (1) Acute hypoxemic respiratory failure Is this a current diagnosis for this admission?: Yes Plan: Continues to remain on 100% FiO2 as well as noninvasive positive pressure ventilation for the last 4 days his chest x-ray seems worse he does have a left shift with bandemia we will suggest treating him for hospital-acquired pneumonia.You have ruled out PE (2) COVID-19 Is this a current diagnosis for this admission?: Yes Plan: Convalescent phase (3) Sleep apnea syndrome Qualifiers: Sleep apnea type: unspecified type Is this a current diagnosis for this admission?: Yes Plan: NIPPV - Time Time Spent with patient: 50 min
[2020-10-13] MEDS: TAMSULOSIN HCL 0.4 MG CAP.SR.24H PO SCH (17:14)
[2020-10-13] MEDS: ATORVASTATIN CALCIUM 40 MG TABLET PO SCH (23:18)
[2020-10-13] MEDS: INSULIN GLARGINE,HUM.REC.ANLOG 1,000 UNIT/10 ML VIAL SUBCUT SCH (23:18)
[2020-10-14 05:13] LABS: ANION GAP 5 (5-19); BLOOD UREA NITROGEN 27 mg/dL (7-20); CALCIUM 8.8 mg/dL (8.4-10.2); CARBON DIOXIDE 29 mmol/L (22-30); CHLORIDE 97 mmol/L (98-107); GLUCOSE 82 mg/dL (75-110); POTASSIUM 4.5 mmol/L (3.6-5.0)
[2020-10-14] MEDS: CEFEPIME 1 GM/D5W RTU 1 GM/50 ML RTUPB IV SCH ×2 (06:09→17:10)
[2020-10-14] MEDS: PANTOPRAZOLE SODIUM 40 MG TABLET.DR PO SCH (06:09)
[2020-10-14] MEDS: INSULIN LISPRO 100 UNIT/ML 3 ML VIAL SUBCUT SCH ×2 (07:55→07:56)
--- NOTE | 2020-10-14 08:15 | PDOC CONSULTATION ---
Consultation Consult Date: 10/14/20 Attending physician:: ZAIRE GEIGER Provider Consulted: ALFREDO CHERY Consult reason:: ITP, worsening thrombocytopenia History of Present Illness Admission Date/PCP: 10/01/20 15:17 ZAIRE GEIGER MD Patient complains of: Thrombocytopenia History of Present Illness: TAHIR FOURNIER is a 64 year old male w/ known h/o of ITP, with good response to steroids in recent admit, was tapering as oupt prednisone but unfortunately came back to hospital w/ COVID related pneumonia, plt ct initially was >100K and so prednisone switched to dexamethasone 2nd to data w/ COVID. Was on dex 4mg BID and as plt dropped inc to 6mg BID. Now we are consulted b/c dropped to 73. No active bleeding. Of note this is a telehealth visit due to COVID restrictions. Past Medical History Cardiac Medical History: Reports: Coronary Artery Disease - CARDIAC STENTS X5, Hyperlipidema, Hypertension Denies: Atrial Fibrillation, Congestive Heart Failure, Myocardial Infarction, Peripheral Vascular Disease, Pulmonary Embolism Pulmonary Medical History: Reports: Asthma, Bronchitis, Chronic Obstructive Pulmonary Disease (COPD), Pneumonia, Sleep Apnea Denies: Respiratory Failure, Tuberculosis Neurological Medical History: Denies: Seizures Endocrine Medical History: Reports: Diabetes Mellitus Type 1, Diabetes Mellitus Type 2 Denies: Hyperthyroidism, Hypothyroidism Renal/ Medical History: Denies: End Stage Renal Disease Malignancy Medical History: Denies: Leukemia, Lung Cancer GI Medical History: Reports: Gastroesophageal Reflux Disease, Hiatal Hernia Denies: Crohn's Disease Musculoskeltal Medical History: Reports: Arthritis - bursitis left shoulder, back bone spurs Denies: Fibromyalgia Psychiatric Medical History: Denies: Bipolar Disorder, Dementia, Depression, Post Traumatic Stress Disorder Hematology: Reports: Anemia, Other - ITP Infectious Medical History: Denies: HIV Past Surgical History Past Surgical History: Reports: Cardiac Catheterization - 5 stents, Cholecystectomy, Coronary Stent - X5, Orthopedic Surgery - right leg, back surgery, Tonsillectomy Denies: Appendectomy, Colostomy, Coronary Artery Bypass Graft, Gastric Bypass Surgery, Herniorrhaphy, Pacemaker Social History Smoking Status: Former Smoker Cigarettes Packs Per Day: 1 Number of Years Smokin Frequency of Alcohol Use: None Hx Recreational Drug Use: No Drugs: None Hx Prescription Drug Abuse: No - Advance Directive Resuscitation Status: Full Code Family History Family History: Arthritis, CAD, CVA, DM, Hyperlipidemia, Hypertension, Malignancy Parental Family History Reviewed: Yes Children Family History Reviewed: Yes Sibling(s) Family History Reviewed.: Yes Medication/Allergy Home Medications: Amlodipine Besylate [Norvasc 10 mg Tablet] 10 mg PO DAILY 12/24/19 Atorvastatin Calcium [Lipitor 40 mg Tablet] 40 mg PO QHS 12/24/19 Fluticasone/Umeclidin/Vilanter [Trelegy 100-62.5-25 Mcg Ellipta 14 Dose/Dpi] 1 puff IH DAILY 12/24/19 Levocetirizine Dihydrochloride [Xyzal] 5 mg PO DAILY 12/24/19 Montelukast Sodium [Singulair 10 mg Tablet] 10 mg PO QPM 12/24/19 Omeprazole 40 mg PO BID 12/24/19 Tamsulosin HCl [Flomax 0.4 mg Cap.sr] 0.4 mg PO QPM 12/24/19 Fenofibrate Nanocrystallized [Fenofibrate] 145 mg PO DAILY 09/17/20 Insulin Glargine,Hum.rec.anlog [Lantus Insulin 100 Unit/1 ml 10 ml] 30 unit SUBC UT QHS 09/17/20 Insulin Regular, Human [Humulin R (Reg) Insulin 100 unit/mL] 0 unit SUBCUT .SLIDING SCALE 09/17/20 Nitroglycerin [Nitrostat 0.4 mg (1/150 Gr) Tabs 25/Bottle] 1 tab SL Q5MP PRN 09/17/20 Tiotropium Br/Olodaterol HCl [Stiolto Respimat Inhal [place]] 2 puff IH DAILY 09/17/20 Tramadol HCl [Ultram 50 mg Tablet] 50 mg PO QID 09/17/20 Prednisone 10 mg PO DAILY #200 tablet 09/23/20 Furosemide [Lasix 40 mg Tablet] 40 mg PO DAILY 10/02/20 Allergies/Adverse Reactions: clopidogrel bisulfate [From Plavix] Adverse Reaction (Severe, Verified 10/01/20 11:29) bleeding from ear/NOSE Review of Systems Constitutional: ABSENT: chills, fever(s), headache(s), weight gain, weight loss Eyes: ABSENT: visual disturbances Ears: ABSENT: hearing changes Cardiovascular: ABSENT: chest pain, dyspnea on exertion, edema, orthropnea, palpitations Respiratory: ABSENT: cough, hemoptysis Gastrointestinal: ABSENT: abdominal pain, constipation, diarrhea, hematemesis, hematochezia, nausea, vomiting Genitourinary: ABSENT: dysuria, hematuria Musculoskeletal: ABSENT: joint swelling Integumentary: ABSENT: rash, wounds Neurological: ABSENT: abnormal gait, abnormal speech, confusion, dizziness, focal weakness, syncope Psychiatric: ABSENT: anxiety, depression, homidical ideation, suicidal ideation Endocrine: ABSENT: cold intolerance, heat intolerance, polydipsia, polyuria Hematologic/Lymphatic: ABSENT: easy bleeding, easy bruising Physical Exam Vital Signs: Temp Pulse Resp BP Pulse Ox 98.3 F 86 25 H 142/66 H 94 10/14/20 04:11 10/14/20 07:00 10/14/20 05:33 10/14/20 04:11 10/14/20 05:33 Pulse Oximeter Continuous Start: 10/03/20 08:46 Freq: RTQ4 Status: Complete Protocol: Document 10/10/20 03:49 CMI (Rec: 10/10/20 04:06 CMI [id number]) Pulse Oximetry Assessment Oxygen Saturation (92-100) 97 Oxygen Delivery Method CPAP Fraction of Inspired Oxygen (FIO2) 100 Equipment Usage Equipment Standby Continuous SpO2 Machine # on nurse monitor Intake & Output 10/13/20 10/14/20 10/15/20 06:59 06:59 06:59 Intake Total 3040 2280 50 Output Total 1850 1550 Balance 1190 730 50 Weight 79.2 kg 79.5 kg Results Laboratory Results: 10/13/20 04:13 10/14/20 04:16 10/14/20 04:16 Sodium 130.9 L Potassium 4.5 Chloride 97 L Carbon Dioxide 29 Anion Gap 5 BUN 27 H Creatinine 0.87 Est GFR ( Amer) > 60 Glucose 82 Calcium 8.8 Impressions: Chest CT 10/03/20 08:46 IMPRESSION: There has been a significant increase in bilateral airspace disease. There is involvement of both the upper and lower lobes. Changes are more prominent in the lung periphery. There are areas of ground-glass opacity with surrounding dense consolidation. There is bronchiectasis. Pulmonary nodule previously described is no longer identified and most likely was related to infectious or inflammatory process. Chest X-Ray 10/10/20 00:00 IMPRESSION: STABLE APPEARANCE OF THE CHEST. Chest/Abdomen CTA 10/12/20 00:00 IMPRESSION: Since the CT from 10/03/2020 the patient has developed new diffuse alveolar ground-glass opacities and the patchy areas of dense consolidation in the lower lobes and to a lesser extent the right middle lobe and lingula have improved. There is no pulmonary embolus. Assessment & Plan - Diagnosis (1) Acute ITP Is this a current diagnosis for this admission?: Yes Plan: Maybe multifactorial due to COVID infection, DIC but also ITP. We will d/c dex and change solumedrol 80mg IV daily. Will follow. - Time Time Spent: Greater than 70 Minutes - Inpatient Certification Based on my medical assessment, after consideration of the patient's comorbidities, presenting symptoms, or acuity I expect that the services needed warrant INPATIENT care.: Yes I certify that my determination is in accordance with my understanding of Medicare's requirements for reasonable and necessary INPATIENT services [42 CFR 412.3e].: Yes Medical Necessity: Risk of Complication if Not Cared For in Hospital
--- NOTE | 2020-10-14 08:47 | PDOC PROGRESS REPORT ---
Subjective Date:: 10/14/20 Subjective:: Patient is currently Doing same Patient's denied any chest pain Still require 100% FiO2 Patient's platelet count is going down discussed with the hematology will change the steroid Reason For Visit: LEFT LOWER LOBE PNEUMONIA;EXACERBATED COPD,PUI FOR Physical Exam Vital Signs: Temp Pulse Resp BP Pulse Ox 98.3 F 86 25 H 142/66 H 94 10/14/20 04:11 10/14/20 07:00 10/14/20 05:33 10/14/20 04:11 10/14/20 05:33 Pulse Oximeter Continuous Start: 10/03/20 08:46 Freq: RTQ4 Status: Complete Protocol: Document 10/10/20 03:49 CMI (Rec: 10/10/20 04:06 CMI [id number]) Pulse Oximetry Assessment Oxygen Saturation (92-100) 97 Oxygen Delivery Method CPAP Fraction of Inspired Oxygen (FIO2) 100 Equipment Usage Equipment Standby Continuous SpO2 Machine # on nurse monitor Intake & Output 10/13/20 10/14/20 10/15/20 06:59 06:59 06:59 Intake Total 3040 2280 50 Output Total 1850 1550 Balance 1190 730 50 Weight 79.2 kg 79.5 kg General appearance: PRESENT: no acute distress, well-developed, well-nourished Head exam: PRESENT: atraumatic, normocephalic Eye exam: PRESENT: conjunctiva pink. ABSENT: scleral icterus Ear exam: PRESENT: normal external ear exam Mouth exam: PRESENT: moist, tongue midline Neck exam: ABSENT: carotid bruit, JVD, lymphadenopathy, thyromegaly Cardiovascular exam: PRESENT: RRR. ABSENT: diastolic murmur, rubs, systolic murmur Vascular exam: PRESENT: normal capillary refill GI/Abdominal exam: PRESENT: normal bowel sounds, soft. ABSENT: distended, guarding, mass, organolmegaly, rebound, tenderness Rectal exam: PRESENT: deferred Neurological exam: PRESENT: alert, awake, oriented to person, oriented to place, oriented to time, oriented to situation. ABSENT: motor sensory deficit Psychiatric exam: PRESENT: appropriate affect, normal mood. ABSENT: homicidal ideation, suicidal ideation Skin exam: PRESENT: dry, intact, warm. ABSENT: cyanosis, rash Results Laboratory Results: 10/13/20 04:13 10/14/20 04:16 10/14/20 04:16 Sodium 130.9 L Potassium 4.5 Chloride 97 L Carbon Dioxide 29 Anion Gap 5 BUN 27 H Creatinine 0.87 Est GFR ( Amer) > 60 Glucose 82 Calcium 8.8 Impressions: Chest CT 10/03/20 08:46 IMPRESSION: There has been a significant increase in bilateral airspace disease. There is involvement of both the upper and lower lobes. Changes are more prominent in the lung periphery. There are areas of ground-glass opacity with surrounding dense consolidation. There is bronchiectasis. Pulmonary nodule previously described is no longer identified and most likely was related to infectious or inflammatory process. Chest X-Ray 10/10/20 00:00 IMPRESSION: STABLE APPEARANCE OF THE CHEST. Chest/Abdomen CTA 10/12/20 00:00 IMPRESSION: Since the CT from 10/03/2020 the patient has developed new diffuse alveolar ground-glass opacities and the patchy areas of dense consolidation in the lower lobes and to a lesser extent the right middle lobe and lingula have improved. There is no pulmonary embolus. Assessment & Plan - Diagnosis (1) Pneumonia due to 2019-nCoV Is this a current diagnosis for this admission?: Yes (2) Hyperlipidemia Qualifiers: Hyperlipidemia type: unspecified Qualified Code(s): E78.5 - Hyperlipidemia, unspecified Is this a current diagnosis for this admission?: Yes (3) Hypertension Qualifiers: Hypertension type: essential hypertension Qualified Code(s): I10 - Essential (primary) hypertension Is this a current diagnosis for this admission?: Yes (4) Severe thrombocytopenia Is this a current diagnosis for this admission?: Yes (5) Sleep apnea syndrome Qualifiers: Sleep apnea type: unspecified type Is this a current diagnosis for this admission?: Yes (6) Type 2 diabetes mellitus Qualifiers: Diabetes mellitus [facility] insulin use: unspecified 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
[2020-10-14] MEDS: BENZONATATE 100 MG CAPSULE PO SCH ×2 (09:31→21:06)
[2020-10-14] MEDS: FENOFIBRATE NANOCRYSTALLIZED 145 MG TABLET PO SCH (09:31)
[2020-10-14] MEDS: AMLODIPINE BESYLATE 10 MG TABLET PO SCH (09:32)
[2020-10-14] MEDS: FLUTICASONE/UMECLIDIN/VILANTER 100-62.5-25 MCG/DOSE IH SCH (09:32)
[2020-10-14] MEDS: METHYLPREDNISOLONE INJ 125 MG/2 ML SDV IV SCH (09:32)
[2020-10-14] MEDS: DOXYCYCLINE HYCLATE 100 MG in DEXTROSE 5%-WATER 250 ML IV SCH ×2 (10:10→21:06)
[2020-10-14] MEDS: TAMSULOSIN HCL 0.4 MG CAP.SR.24H PO SCH (17:09)
[2020-10-14] MEDS: ATORVASTATIN CALCIUM 40 MG TABLET PO SCH (21:06)
[2020-10-14] MEDS: MELATONIN 5 MG TABLET PO PRN (21:06)
[2020-10-14] MEDS: DEXTROSE 5%-1/2 NORMAL SALINE 1,000 ML IV PRN (23:38)
[2020-10-15] MEDS: CEFEPIME 1 GM/D5W RTU 1 GM/50 ML RTUPB IV SCH ×2 (05:09→17:17)
[2020-10-15] MEDS: PANTOPRAZOLE SODIUM 40 MG TABLET.DR PO SCH (05:09)
[2020-10-15] MEDS ORDERED: DEXTROSE 50%-WATER SYRINGE 12.5 GM/25 ML DOSE IV PRN (09:30)
[2020-10-15] MEDS ORDERED: DEXTROSE 50%-WATER SYRINGE 25 GM/50 ML DOSE IV PRN (09:30)
[2020-10-15] MEDS ORDERED: DEXTROSE 40% GEL 15 GM TUBE PO PRN (09:30)
[2020-10-15] MEDS ORDERED: DEXTROSE 40% GEL 15 GM TUBE X 2 PO PRN (09:30)
[2020-10-15] MEDS ORDERED: GLUCAGON,HUMAN RECOMB 1 MG INJ IM PRN (09:30)
--- NOTE | 2020-10-15 09:36 | PDOC PROGRESS REPORT ---
Subjective Date:: 10/15/20 Subjective:: Patient is currently Doing same Patient's denied any chest pain Still require 100% FiO2 Patient's platelet count is going down discussed with the hematology will change the steroid Reason For Visit: LEFT LOWER LOBE PNEUMONIA;EXACERBATED COPD,PUI FOR Physical Exam Vital Signs: Temp Pulse Resp BP Pulse Ox 97.7 F 81 18 142/69 H 92 10/15/20 07:25 10/15/20 07:25 10/15/20 07:25 10/15/20 07:25 10/15/20 07:25 Pulse Oximeter Continuous Start: 10/03/20 08:46 Freq: RTQ4 Status: Complete Protocol: Document 10/10/20 03:49 CMI (Rec: 10/10/20 04:06 CMI [id number]) Pulse Oximetry Assessment Oxygen Saturation (92-100) 97 Oxygen Delivery Method CPAP Fraction of Inspired Oxygen (FIO2) 100 Equipment Usage Equipment Standby Continuous SpO2 Machine # on nurse monitor Intake & Output 10/14/20 10/15/20 10/16/20 06:59 06:59 06:59 Intake Total 2280 2276 Output Total 1550 1675 Balance 730 601 Weight 79.5 kg 78.4 kg General appearance: PRESENT: no acute distress, well-developed, well-nourished Head exam: PRESENT: atraumatic, normocephalic Eye exam: PRESENT: conjunctiva pink, EOMI, PERRLA. ABSENT: scleral icterus Ear exam: PRESENT: normal external ear exam Mouth exam: PRESENT: moist, tongue midline Neck exam: PRESENT: full ROM. ABSENT: carotid bruit, JVD, lymphadenopathy, thyromegaly Cardiovascular exam: PRESENT: RRR. ABSENT: diastolic murmur, rubs, systolic murmur Pulses: PRESENT: normal dorsalis pedis pul, +2 pedal pulses bilateral Vascular exam: PRESENT: normal capillary refill GI/Abdominal exam: PRESENT: normal bowel sounds, soft. ABSENT: distended, guarding, mass, organolmegaly, rebound, tenderness Rectal exam: PRESENT: deferred Neurological exam: PRESENT: alert, awake, oriented to person, oriented to place, oriented to time, oriented to situation, CN II-XII grossly intact. ABSENT: motor sensory deficit Psychiatric exam: PRESENT: appropriate affect, normal mood. ABSENT: homicidal ideation, suicidal ideation Skin exam: PRESENT: dry, intact, warm. ABSENT: cyanosis, rash Results Laboratory Results: 10/13/20 04:13 10/14/20 04:16 Impressions: Chest CT 10/03/20 08:46 IMPRESSION: There has been a significant increase in bilateral airspace disease. There is involvement of both the upper and lower lobes. Changes are more prominent in the lung periphery. There are areas of ground-glass opacity with surrounding dense consolidation. There is bronchiectasis. Pulmonary nodule previously described is no longer identified and most likely was related to infectious or inflammatory process. Chest X-Ray 10/10/20 00:00 IMPRESSION: STABLE APPEARANCE OF THE CHEST. Chest/Abdomen CTA 10/12/20 00:00 IMPRESSION: Since the CT from 10/03/2020 the patient has developed new diffuse alveolar ground-glass opacities and the patchy areas of dense consolidation in the lower lobes and to a lesser extent the right middle lobe and lingula have improved. There is no pulmonary embolus. Assessment & Plan - Diagnosis (1) Pneumonia due to 2019-nCoV Is this a current diagnosis for this admission?: Yes (2) Hyperlipidemia Qualifiers: Hyperlipidemia type: unspecified Qualified Code(s): E78.5 - Hyperlipidemia, unspecified Is this a current diagnosis for this admission?: Yes (3) Hypertension Qualifiers: Hypertension type: essential hypertension Qualified Code(s): I10 - Essential (primary) hypertension Is this a current diagnosis for this admission?: Yes (4) Severe thrombocytopenia Is this a current diagnosis for this admission?: Yes (5) Sleep apnea syndrome Qualifiers: Sleep apnea type: unspecified type Is this a current diagnosis for this admission?: Yes (6) Type 2 diabetes mellitus Qualifiers: Diabetes mellitus care home insulin use: 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
[2020-10-15] MEDS: METHYLPREDNISOLONE INJ 125 MG/2 ML SDV IV SCH (09:53)
[2020-10-15] MEDS: AMLODIPINE BESYLATE 10 MG TABLET PO SCH (09:53)
[2020-10-15] MEDS: FENOFIBRATE NANOCRYSTALLIZED 145 MG TABLET PO SCH (09:53)
[2020-10-15] MEDS: BENZONATATE 100 MG CAPSULE PO SCH ×2 (09:53→21:40)
[2020-10-15] MEDS: INSULIN LISPRO 100 UNIT/ML 3 ML VIAL SUBCUT SCH ×3 (09:54→21:40)
[2020-10-15 10:14] LABS: ANION GAP 7 (5-19); BLOOD UREA NITROGEN 34 mg/dL (7-20); CALCIUM 8.6 mg/dL (8.4-10.2); CARBON DIOXIDE 26 mmol/L (22-30); CHLORIDE 98 mmol/L (98-107); GLUCOSE 248 mg/dL (75-110); POTASSIUM 4.6 mmol/L (3.6-5.0)
[2020-10-15] MEDS: FLUTICASONE/UMECLIDIN/VILANTER 100-62.5-25 MCG/DOSE IH SCH (10:17)
[2020-10-15 10:39] LABS: HEMOGLOBIN 10.4 g/dL (13.5-17.0); MEAN CORPUSCULAR HEMOGLOBIN 26.4 pg (27.0-33.4); MEAN CORPUSCULAR HGB CONC 33.4 g/dL (32.0-36.0); MEAN CORPUSCULAR VOLUME 79 fl (80-97); RED BLOOD COUNT 3.93 10^6/uL (4.35-5.55); RED CELL DISTRIBUTION WIDTH 14.3 % (11.5-14.0); WHITE BLOOD COUNT 14.7 10^3/uL (4.0-10.5)
[2020-10-15 10:43] LABS: PLATELET COUNT 77 10^3/uL (150-450)
[2020-10-15 10:44] LABS: ABSOLUTE LYMPHOCYTES# (MANUAL) 0.4 10^3/uL (0.5-4.7); ABSOLUTE MONOCYTES # (MANUAL) 0.4 10^3/uL (0.1-1.4); BASOPHILS % (MANUAL) 0 % (0-2); EOSINOPHILS % (MANUAL) 0 % (0-6); LYMPHOCYTES % (MANUAL) 3 % (13-45); MONOCYTES % (MANUAL) 3 % (3-13); SEGMENTED NEUTROPHILS % (MAN) 94 % (42-78); TOTAL CELLS COUNTED 100
[2020-10-15 10:47] LABS: ANISOCYTOSIS SLIGHT; HYPOCHROMASIA SLIGHT; PLATELET COMMENT DECREASED
[2020-10-15] MEDS: DOXYCYCLINE HYCLATE 100 MG in DEXTROSE 5%-WATER 250 ML IV SCH ×2 (11:25→21:45)
--- NOTE | 2020-10-15 11:29 | PDOC PROGRESS REPORT ---
Subjective Date:: 10/15/20 Subjective:: No acute events overnight, platelet count stable, no bleeding Reason For Visit: LEFT LOWER LOBE PNEUMONIA;EXACERBATED COPD,PUI FOR Physical Exam Vital Signs: Temp Pulse Resp BP Pulse Ox 97.7 F 81 218 H 142/69 H 97 10/15/20 07:25 10/15/20 07:25 10/15/20 08:03 10/15/20 07:25 10/15/20 08:03 Pulse Oximeter Continuous Start: 10/03/20 08:4 6 Freq: RTQ4 Status: Complete Protocol: Document 10/10/20 03:49 CMI (Rec: 10/10/20 04:06 CMI [id number]) Pulse Oximetry Assessment Oxygen Saturation (92-100) 97 Oxygen Delivery Method CPAP Fraction of Inspired Oxygen (FIO2) 100 Equipment Usage Equipment Standby Continuous SpO2 Machine # on nurse monitor Intake & Output 10/14/20 10/15/20 10/16/20 06:59 06:59 06:59 Intake Total 2280 2276 Output Total 1550 1675 Balance 730 601 Weight 79.5 kg 78.4 kg General appearance: PRESENT: no acute distress, well-developed, well-nourished Head exam: PRESENT: atraumatic, normocephalic Eye exam: PRESENT: conjunctiva pink, EOMI, PERRLA. ABSENT: scleral icterus Ear exam: PRESENT: normal external ear exam Mouth exam: PRESENT: moist, tongue midline Neck exam: ABSENT: carotid bruit, JVD, lymphadenopathy, thyromegaly Respiratory exam: PRESENT: clear to auscultation raya. ABSENT: rales, rhonchi, wheezes Cardiovascular exam: PRESENT: RRR. ABSENT: diastolic murmur, rubs, systolic murmur Pulses: PRESENT: normal dorsalis pedis pul Vascular exam: PRESENT: normal capillary refill GI/Abdominal exam: PRESENT: normal bowel sounds, soft. ABSENT: distended, guarding, mass, organolmegaly, rebound, tenderness Rectal exam: PRESENT: deferred Extremities exam: PRESENT: full ROM. ABSENT: calf tenderness, clubbing, pedal edema Neurological exam: PRESENT: alert, awake, oriented to person, oriented to place, oriented to time, oriented to situation, CN II-XII grossly intact. ABSENT: motor sensory deficit Psychiatric exam: PRESENT: appropriate affect, normal mood. ABSENT: homicidal ideation, suicidal ideation Skin exam: PRESENT: dry, intact, warm. ABSENT: cyanosis, rash Results Laboratory Results: 10/15/20 08:53 10/15/20 08:53 10/15/20 10/15/20 08:53 08:53 WBC 14.7 H RBC 3.93 L Hgb 10.4 L Hct 31.0 L MCV 79 L MCH 26.4 L MCHC 33.4 RDW 14.3 H Plt Count 77 L Seg Neutrophils % Not Reportable Sodium 130.5 L Potassium 4.6 Chloride 98 Carbon Dioxide 26 Anion Gap 7 BUN 34 H Creatinine 0.82 Est GFR ( Amer) > 60 Glucose 248 H Calcium 8.6 Impressions: Chest CT 10/03/20 08:46 IMPRESSION: There has been a significant increase in bilateral airspace disease. There is involvement of both the upper and lower lobes. Changes are more prominent in the lung periphery. There are areas of ground-glass opacity with surrounding dense consolidation. There is bronchiectasis. Pulmonary nodule previously described is no longer identified and most likely was related to infectious or inflammatory process. Chest X-Ray 10/10/20 00:00 IMPRESSION: STABLE APPEARANCE OF THE CHEST. Chest/Abdomen CTA 10/12/20 00:00 IMPRESSION: Since the CT from 10/03/2020 the patient has developed new diffuse alveolar ground-glass opacities and the patchy areas of dense consolidation in the lower lobes and to a lesser extent the right middle lobe and lingula have improved. There is no pulmonary embolus. Assessment & Plan - Diagnosis (1) Acute ITP Is this a current diagnosis for this admission?: Yes Plan: Continue with current steroid dosing. - Time Time Spent with patient: 15-24 minutes
[2020-10-15] MEDS: DEXTROSE 5%-1/2 NORMAL SALINE 1,000 ML IV PRN (15:54)
[2020-10-15] MEDS: TAMSULOSIN HCL 0.4 MG CAP.SR.24H PO SCH (17:17)
[2020-10-15] MEDS: ATORVASTATIN CALCIUM 40 MG TABLET PO SCH (21:40)
[2020-10-15] MEDS: MELATONIN 5 MG TABLET PO PRN (21:40)
[2020-10-16] MEDS: CEFEPIME 1 GM/D5W RTU 1 GM/50 ML RTUPB IV SCH ×2 (05:17→17:20)
[2020-10-16] MEDS: PANTOPRAZOLE SODIUM 40 MG TABLET.DR PO SCH (05:17)
[2020-10-16] MEDS: INSULIN LISPRO 100 UNIT/ML 3 ML VIAL SUBCUT SCH ×4 (08:15→21:25)
[2020-10-16] MEDS ORDERED: GLUCAGON,HUMAN RECOMB 1 MG INJ IM PRN (09:32)
[2020-10-16] MEDS ORDERED: DEXTROSE 50%-WATER 25 GM/50 ML DISP.SYRIN IV PRN ×2 (09:32)
[2020-10-16] MEDS ORDERED: DEXTROSE 40% GEL 15 GM TUBE PO PRN ×2 (09:32)
--- NOTE | 2020-10-16 09:35 | PDOC PROGRESS REPORT ---
Subjective Date:: 10/16/20 Subjective:: Patient is currently Doing same Patient's denied any chest pain Still require 100% FiO2 Patient's platelet count is going down discussed with the hematology will change the steroid Reason For Visit: LEFT LOWER LOBE PNEUMONIA;EXACERBATED COPD,PUI FOR Physical Exam Vital Signs: Temp Pulse Resp BP Pulse Ox 97.5 F 81 21 H 149/68 H 95 10/16/20 07:42 10/16/20 07:42 10/16/20 08:22 10/16/20 07:42 10/16/20 08:22 Pulse Oximeter Continuous Start: 10/03/20 08:46 Freq: RTQ4 Status: Complete Protocol: Document 10/10/20 03:49 CMI (Rec: 10/10/20 04:06 CMI [id number]) Pulse Oximetry Assessment Oxygen Saturation (92-100) 97 Oxygen Delivery Method CPAP Fraction of Inspired Oxygen (FIO2) 100 Equipment Usage Equipment Standby Continuous SpO2 Machine # on nurse monitor Intake & Output 10/15/20 10/16/20 10/17/20 06:59 06:59 06:59 Intake Total 2276 2131 Output Total 1675 1075 Balance 601 1056 Weight 78.4 kg 79.7 kg General appearance: PRESENT: no acute distress Eye exam: PRESENT: PERRLA Mouth exam: PRESENT: neck supple Respiratory exam: PRESENT: decreased breath sounds GI/Abdominal exam: PRESENT: normal bowel sounds, soft Neurological exam: PRESENT: alert, awake, oriented to person, oriented to place, oriented to time, oriented to situation Results Laboratory Results: 10/15/20 08:53 10/15/20 08:53 10/15/20 10/15/20 08:53 08:53 WBC 14.7 H RBC 3.93 L Hgb 10.4 L Hct 31.0 L MCV 79 L MCH 26.4 L MCHC 33.4 RDW 14.3 H Plt Count 77 L Seg Neutrophils % Not Reportable Sodium 130.5 L Potassium 4.6 Chloride 98 Carbon Dioxide 26 Anion Gap 7 BUN 34 H Creatinine 0.82 Est GFR ( Amer) > 60 Glucose 248 H Calcium 8.6 Impressions: Chest CT 10/03/20 08:46 IMPRESSION: There has been a significant increase in bilateral airspace disease. There is involvement of both the upper and lower lobes. Changes are more prominent in the lung periphery. There are areas of ground-glass opacity with surrounding dense consolidation. There is bronchiectasis. Pulmonary nodule previously described is no longer identified and most likely was related to infectious or inflammatory process. Chest X-Ray 10/10/20 00:00 IMPRESSION: STABLE APPEARANCE OF THE CHEST. Chest/Abdomen CTA 10/12/20 00:00 IMPRESSION: Since the CT from 10/03/2020 the patient has developed new diffuse alveolar ground-glass opacities and the patchy areas of dense consolidation in the lower lobes and to a lesser extent the right middle lobe and lingula have improved. There is no pulmonary embolus. Assessment & Plan - Diagnosis (1) Pneumonia due to 2019-nCoV Is this a current diagnosis for this admission?: Yes (2) Hyperlipidemia Qualifiers: Hyperlipidemia type: unspecified Qualified Code(s): E78.5 - Hyperlipidemia, unspecified Is this a current diagnosis for this admission?: Yes (3) Hypertension Qualifiers: Hypertension type: essential hypertension Qualified Code(s): I10 - Essential (primary) hypertension Is this a current diagnosis for this admission?: Yes (4) Severe thrombocytopenia Is this a current diagnosis for this admission?: Yes (5) Sleep apnea syndrome Qualifiers: Sleep apnea type: unspecified type Is this a current diagnosis for this admission?: Yes (6) Type 2 diabetes mellitus Qualifiers: Diabetes mellitus intermediate insulin use: unspecified 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
[2020-10-16] MEDS: FENOFIBRATE NANOCRYSTALLIZED 145 MG TABLET PO SCH (09:41)
[2020-10-16] MEDS: AMLODIPINE BESYLATE 10 MG TABLET PO SCH (09:41)
[2020-10-16] MEDS: METHYLPREDNISOLONE INJ 125 MG/2 ML SDV IV SCH (09:41)
[2020-10-16] MEDS: BENZONATATE 100 MG CAPSULE PO SCH ×2 (09:41→21:25)
[2020-10-16] MEDS: FLUTICASONE/UMECLIDIN/VILANTER 100-62.5-25 MCG/DOSE IH SCH (09:42)
[2020-10-16] MEDS: DEXTROSE 5%-1/2 NORMAL SALINE 1,000 ML IV PRN (09:44)
[2020-10-16 11:11] LABS: ARTERIAL BLOOD BASE EXCESS -1.9 mmol/L; ARTERIAL BLOOD H2CO3 1.34 mmol/L (1.05-1.35); ARTERIAL BLOOD HCO3 23.8 mmol/L (20-24); ARTERIAL BLOOD O2 SATURATION 98.1 % (94-98); ARTERIAL BLOOD PCO2 44.4 mmHg (35-45); ARTERIAL BLOOD PH 7.35 (7.35-7.45); ARTERIAL BLOOD PO2 117.6 mmHg (80-100); ARTERIAL BLOOD TOTAL CO2 25.2 mmol/L (23-27)
[2020-10-16 11:13] LABS: ARTERIAL BLOOD FIO2 70%
[2020-10-16] MEDS: DOXYCYCLINE HYCLATE 100 MG in DEXTROSE 5%-WATER 250 ML IV SCH ×2 (11:55→21:27)
[2020-10-16] MEDS: TAMSULOSIN HCL 0.4 MG CAP.SR.24H PO SCH (17:21)
[2020-10-16] MEDS: ATORVASTATIN CALCIUM 40 MG TABLET PO SCH (21:25)
[2020-10-16] MEDS: MELATONIN 5 MG TABLET PO PRN (21:25)
[2020-10-16] MEDS: INSULIN GLARGINE,HUM.REC.ANLOG 1,000 UNIT/10 ML VIAL SUBCUT SCH (21:26)
[2020-10-16] MEDS ORDERED: INSULIN GLARGINE,HUM.REC.ANLOG 1,000 UNIT/10 ML VIAL SUBCUT SCH (22:00)
[2020-10-17] MEDS: DEXTROSE 5%-1/2 NORMAL SALINE 1,000 ML IV PRN ×2 (04:33→22:01)
[2020-10-17] MEDS: PANTOPRAZOLE SODIUM 40 MG TABLET.DR PO SCH (05:39)
[2020-10-17] MEDS: CEFEPIME 1 GM/D5W RTU 1 GM/50 ML RTUPB IV SCH ×2 (05:40→17:09)
[2020-10-17 06:18] LABS: ABSOLUTE LYMPHOCYTES (AUTO) 0.7 10^3/uL (0.5-4.7); ABSOLUTE MONOCYTES (AUTO) 0.6 10^3/uL (0.1-1.4); ABSOLUTE NEUT (AUTO) 8.7 10^3/uL (1.7-8.2); BASOPHILS % (AUTO) 0.2 % (0-2); EOSINOPHILS % (AUTO) 0.2 % (0-6); HEMATOCRIT 31.9 % (37.9-51.0); HEMOGLOBIN 10.6 g/dL (13.5-17.0); LYMPHOCYTES % (AUTO) 6.6 % (13-45); MEAN CORPUSCULAR HEMOGLOBIN 26.2 pg (27.0-33.4); MEAN CORPUSCULAR HGB CONC 33.2 g/dL (32.0-36.0); MEAN CORPUSCULAR VOLUME 79 fl (80-97); MONOCYTES % (AUTO) 5.8 % (3-13); PLATELET COUNT 117 10^3/uL (150-450); RED BLOOD COUNT 4.04 10^6/uL (4.35-5.55); RED CELL DISTRIBUTION WIDTH 14.1 % (11.5-14.0); SEGMENTED NEUTROPHILS % (AUTO) 87.2 % (42-78); TOTAL CELLS COUNTED % (AUTO) 100 %
[2020-10-17 06:40] LABS: ANION GAP 6 (5-19); BLOOD UREA NITROGEN 38 mg/dL (7-20); C-REACTIVE PROTEIN 12.2 mg/L (<10.0); CARBON DIOXIDE 28 mmol/L (22-30); CHLORIDE 99 mmol/L (98-107); GLUCOSE 251 mg/dL (75-110)
--- NOTE | 2020-10-17 08:06 | PDOC PROGRESS REPORT ---
Subjective Date:: 10/17/20 Subjective:: No acute events overnight. Plt ct is improved Reason For Visit: LEFT LOWER LOBE PNEUMONIA;EXACERBATED COPD,PUI FOR Physical Exam Vital Signs: Temp Pulse Resp BP Pulse Ox 98.0 F 71 15 140/60 H 98 10/17/20 00:24 10/17/20 03:14 10/17/20 04:10 10/17/20 03:14 10/17/20 04:10 Pulse Oximeter Continuous Start: 10/03/20 08:46 Freq: RTQ4 Status: Complete Protocol: Document 10/10/20 03:49 CMI (Rec: 10/10/20 04:06 CMI [id number]) Pulse Oximetry Assessment Oxygen Saturation (92-100) 97 Oxygen Delivery Method CPAP Fraction of Inspired Oxygen (FIO2) 100 Equipment Usage Equipment Standby Continuous SpO2 Machine # on nurse monitor Intake & Output 10/16/20 10/17/20 10/18/20 06:59 06:59 06:59 Intake Total 2131 2104 Output Total 1075 1750 Balance 1056 354 Weight 79.7 kg 78.4 kg General appearance: PRESENT: no acute distress, well-developed, well-nourished Head exam: PRESENT: atraumatic, normocephalic Eye exam: PRESENT: conjunctiva pink, EOMI, PERRLA. ABSENT: scleral icterus Ear exam: PRESENT: normal external ear exam Mouth exam: PRESENT: moist, tongue midline Neck exam: ABSENT: carotid bruit, JVD, lymphadenopathy, thyromegaly Respiratory exam: PRESENT: clear to auscultation raya. ABSENT: rales, rhonchi, wheezes Cardiovascular exam: PRESENT: RRR. ABSENT: diastolic murmur, rubs, systolic murmur Pulses: PRESENT: normal dorsalis pedis pul Vascular exam: PRESENT: normal capillary refill GI/Abdominal exam: PRESENT: normal bowel sounds, soft. ABSENT: distended, guarding, mass, organolmegaly, rebound, tenderness Rectal exam: PRESENT: deferred Extremities exam: PRESENT: full ROM. ABSENT: calf tenderness, clubbing, pedal edema Neurological exam: PRESENT: alert, awake, oriented to person, oriented to place, oriented to time, oriented to situation, CN II-XII grossly intact. ABSENT: motor sensory deficit Psychiatric exam: PRESENT: appropriate affect, normal mood. ABSENT: homicidal ideation, suicidal ideation Skin exam: PRESENT: dry, intact, warm. ABSENT: cyanosis, rash Results Laboratory Results: 10/17/20 05:41 10/17/20 05:41 10/16/20 10/17/20 10/17/20 10:45 05:41 05:41 WBC 10.0 RBC 4.04 L Hgb 10.6 L Hct 31.9 L MCV 79 L MCH 26.2 L MCHC 33.2 RDW 14.1 H Plt Count 117 L Seg Neutrophils % 87.2 H Carbonic Acid 1.34 HCO3/H2CO3 Ratio 17:1 ABG pH 7.35 ABG pCO2 44.4 ABG pO2 117.6 H ABG HCO3 23.8 ABG O2 Saturation 98.1 H ABG Base Excess -1.9 FiO2 70% Sodium 133.1 L Potassium 5.0 Chloride 99 Carbon Dioxide 28 Anion Gap 6 BUN 38 H Creatinine 0.89 Est GFR ( Amer) > 60 Glucose 251 H Calcium 9.0 Ferritin 592.00 H C-Reactive Protein 12.2 H Impressions: Chest CT 10/03/20 08:46 IMPRESSION: There has been a significant increase in bilateral airspace disease. There is involvement of both the upper and lower lobes. Changes are more prominent in the lung periphery. There are areas of ground-glass opacity with surrounding dense consolidation. There is bronchiectasis. Pulmonary nodule previously described is no longer identified and most likely was related to infectious or inflammatory process. Chest X-Ray 10/10/20 00:00 IMPRESSION: STABLE APPEARANCE OF THE CHEST. Chest/Abdomen CTA 10/12/20 00:00 IMPRESSION: Since the CT from 10/03/2020 the patient has developed new diffuse alveolar ground-glass opacities and the patchy areas of dense consolidation in the lower lobes and to a lesser extent the right middle lobe and lingula have improved. There is no pulmonary embolus. Assessment & Plan - Diagnosis (1) Acute ITP Is this a current diagnosis for this admission?: Yes Plan: Plt ct better, cont current dose IV steroids - Time Time Spent with patient: 15-24 minutes
--- NOTE | 2020-10-17 08:58 | PDOC PROGRESS REPORT ---
Subjective Date:: 10/17/20 Subjective:: Patient is currently doing same Patient still on the BiPAP currently oxygen requirement is around 90% per respiratory as per discussed with him try to wean off more Patient's CRP is only 12 Patient's platelet count is also improving Denied any chest pain Reason For Visit: LEFT LOWER LOBE PNEUMONIA;EXACERBATED COPD,PUI FOR Physical Exam Vital Signs: Temp Pulse Resp BP Pulse Ox 98.0 F 77 15 140/60 H 98 10/17/20 00:24 10/17/20 07:00 10/17/20 04:10 10/17/20 03:14 10/17/20 04:10 Pulse Oximeter Continuous Start: 10/03/20 08:46 Freq: RTQ4 Status: Complete Protocol: Document 10/10/20 03:49 CMI (Rec: 10/10/20 04:06 CMI [id number]) Pulse Oximetry Assessment Oxygen Saturation (92-100) 97 Oxygen Delivery Method CPAP Fraction of Inspired Oxygen (FIO2) 100 Equipment Usage Equipment Standby Continuous SpO2 Machine # on nurse monitor Intake & Output 10/16/20 10/17/20 10/18/20 06:59 06:59 06:59 Intake Total 2131 2104 Output Total 1075 1750 Balance 1056 354 Weight 79.7 kg 78.4 kg General appearance: PRESENT: no acute distress Eye exam: PRESENT: PERRLA Mouth exam: PRESENT: neck supple Respiratory exam: PRESENT: clear to auscultation raya Cardiovascular exam: PRESENT: +S1, +S2 GI/Abdominal exam: PRESENT: normal bowel sounds, soft Neurological exam: PRESENT: alert, awake, oriented to person, oriented to place, oriented to time, oriented to situation Skin exam: PRESENT: dry Results Laboratory Results: 10/17/20 05:41 10/17/20 05:41 10/16/20 10/17/20 10/17/20 10:45 05:41 05:41 WBC 10.0 RBC 4.04 L Hgb 10.6 L Hct 31.9 L MCV 79 L MCH 26.2 L MCHC 33.2 RDW 14.1 H Plt Count 117 L Seg Neutrophils % 87.2 H Carbonic Acid 1.34 HCO3/H2CO3 Ratio 17:1 ABG pH 7.35 ABG pCO2 44.4 ABG pO2 117.6 H ABG HCO3 23.8 ABG O2 Saturation 98.1 H ABG Base Excess -1.9 FiO2 70% Sodium 133.1 L Potassium 5.0 Chloride 99 Carbon Dioxide 28 Anion Gap 6 BUN 38 H Creatinine 0.89 Est GFR ( Amer) > 60 Glucose 251 H Calcium 9.0 Ferritin 592.00 H C-Reactive Protein 12.2 H Impressions: Chest CT 10/03/20 08:46 IMPRESSION: There has been a significant increase in bilateral airspace disease. There is involvement of both the upper and lower lobes. Changes are more prominent in the lung periphery. There are areas of ground-glass opacity with surrounding dense consolidation. There is bronchiectasis. Pulmonary nodule previously described is no longer identified and most likely was related to infectious or inflammatory process. Chest X-Ray 10/10/20 00:00 IMPRESSION: STABLE APPEARANCE OF THE CHEST. Chest/Abdomen CTA 10/12/20 00:00 IMPRESSION: Since the CT from 10/03/2020 the patient has developed new diffuse alveolar ground-glass opacities and the patchy areas of dense consolidation in the lower lobes and to a lesser extent the right middle lobe and lingula have improved. There is no pulmonary embolus. Assessment & Plan - Diagnosis (1) Pneumonia due to 2019-nCoV Is this a current diagnosis for this admission?: Yes (2) Hyperlipidemia Qualifiers: Hyperlipidemia type: unspecified Qualified Code(s): E78.5 - Hyperlipidemia, unspecified Is this a current diagnosis for this admission?: Yes (3) Hypertension Qualifiers: Hypertension type: essential hypertension Qualified Code(s): I10 - Essential (primary) hypertension Is this a current diagnosis for this admission?: Yes (4) Severe thrombocytopenia Is this a current diagnosis for this admission?: Yes (5) Sleep apnea syndrome Qualifiers: Sleep apnea type: unspecified type Is this a current diagnosis for this admission?: Yes (6) Type 2 diabetes mellitus Qualifiers: Diabetes mellitus care home insulin use: 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
[2020-10-17] MEDS: INSULIN LISPRO 100 UNIT/ML 3 ML VIAL SUBCUT SCH ×4 (09:27→21:56)
[2020-10-17] MEDS: METHYLPREDNISOLONE INJ 125 MG/2 ML SDV IV SCH (09:28)
[2020-10-17] MEDS: BENZONATATE 100 MG CAPSULE PO SCH ×2 (09:28→21:56)
[2020-10-17] MEDS: FLUTICASONE/UMECLIDIN/VILANTER 100-62.5-25 MCG/DOSE IH SCH (09:28)
[2020-10-17] MEDS: AMLODIPINE BESYLATE 10 MG TABLET PO SCH (09:28)
[2020-10-17] MEDS: FENOFIBRATE NANOCRYSTALLIZED 145 MG TABLET PO SCH (09:28)
[2020-10-17] MEDS: DOXYCYCLINE HYCLATE 100 MG in DEXTROSE 5%-WATER 250 ML IV SCH ×2 (10:27→21:57)
[2020-10-17] MEDS: TAMSULOSIN HCL 0.4 MG CAP.SR.24H PO SCH (17:09)
[2020-10-17] MEDS: ATORVASTATIN CALCIUM 40 MG TABLET PO SCH (21:56)
[2020-10-17] MEDS: INSULIN GLARGINE,HUM.REC.ANLOG 1,000 UNIT/10 ML VIAL SUBCUT SCH (21:57)
[2020-10-18] MEDS: CEFEPIME 1 GM/D5W RTU 1 GM/50 ML RTUPB IV SCH ×2 (05:04→17:32)
[2020-10-18] MEDS: PANTOPRAZOLE SODIUM 40 MG TABLET.DR PO SCH (05:04)
[2020-10-18 06:45] LABS: ANION GAP 5 (5-19); BLOOD UREA NITROGEN 36 mg/dL (7-20); CALCIUM 8.8 mg/dL (8.4-10.2); CARBON DIOXIDE 28 mmol/L (22-30); CHLORIDE 100 mmol/L (98-107); GLUCOSE 201 mg/dL (75-110)
--- NOTE | 2020-10-18 08:33 | PDOC PROGRESS REPORT ---
Subjective Date:: 10/18/20 Subjective:: Patient is currently doing Fair Patient's wants to go home Patient's denied any other symptoms Patient appetite is very poor Patient still require BiPAP with 70% FiO2 Reason For Visit: LEFT LOWER LOBE PNEUMONIA;EXACERBATED COPD,PUI FOR Physical Exam Vital Signs: Temp Pulse Resp BP Pulse Ox 98.7 F 82 19 119/73 95 10/18/20 07:26 10/18/20 07:00 10/18/20 03:30 10/18/20 03:16 10/18/20 03:30 Pulse Oximeter Continuous Start: 10/03/20 08 :46 Freq: RTQ4 Status: Complete Protocol: Document 10/10/20 03:49 CMI (Rec: 10/10/20 04:06 CMI [id number]) Pulse Oximetry Assessment Oxygen Saturation (92-100) 97 Oxygen Delivery Method CPAP Fraction of Inspired Oxygen (FIO2) 100 Equipment Usage Equipment Standby Continuous SpO2 Machine # on nurse monitor Intake & Output 10/17/20 10/18/20 10/19/20 06:59 06:59 06:59 Intake Total 2104 1505 Output Total 1750 1775 Balance 354 -270 Weight 78.4 kg 80.1 kg General appearance: PRESENT: no acute distress Eye exam: PRESENT: PERRLA Mouth exam: PRESENT: neck supple GI/Abdominal exam: PRESENT: normal bowel sounds, soft Results Laboratory Results: 10/17/20 05:41 10/18/20 05:27 10/18/20 05:27 Sodium 132.9 L Potassium 5.0 Chloride 100 Carbon Dioxide 28 Anion Gap 5 BUN 36 H Creatinine 0.77 Est GFR ( Amer) > 60 Glucose 201 H Calcium 8.8 Impressions: Chest CT 10/03/20 08:46 IMPRESSION: There has been a significant increase in bilateral airspace disease. There is involvement of both the upper and lower lobes. Changes are more prominent in the lung periphery. There are areas of ground-glass opacity with surrounding dense consolidation. There is bronchiectasis. Pulmonary nodule previously described is no longer identified and most likely was related to infectious or inflammatory process. Chest X-Ray 10/10/20 00:00 IMPRESSION: STABLE APPEARANCE OF THE CHEST. Chest/Abdomen CTA 10/12/20 00:00 IMPRESSION: Since the CT from 10/03/2020 the patient has developed new diffuse alveolar ground-glass opacities and the patchy areas of dense consolidation in the lower lobes and to a lesser extent the right middle lobe and lingula have improved. There is no pulmonary embolus. Assessment & Plan - Diagnosis (1) Pneumonia due to 2019-nCoV Is this a current diagnosis for this admission?: Yes (2) Hyperlipidemia Qualifiers: Hyperlipidemia type: unspecified Qualified Code(s): E78.5 - Hyperlipidemia, unspecified Is this a current diagnosis for this admission?: Yes (3) Hypertension Qualifiers: Hypertension type: essential hypertension Qualified Code(s): I10 - Essential (primary) hypertension Is this a current diagnosis for this admission?: Yes (4) Severe thrombocytopenia Is this a current diagnosis for this admission?: Yes (5) Sleep apnea syndrome Qualifiers: Sleep apnea type: unspecified type Is this a current diagnosis for this admission?: Yes (6) Type 2 diabetes mellitus Qualifiers: Diabetes mellitus fpc insulin use: unspecified fpc insulin use status Diabetes mellitus complication status: without complication Qualified Code(s): E11.9 - Type 2 diabetes mellitus without complications Is this a current diagnosis for this admission?: Yes - Time Time Spent with patient: 15-24 minutes Level of Care: IMCU Medications reviewed and adjusted accordingly: Yes Anticipated discharge: Other Anticipated DC Timeframe: Other - Plan Summary Plan Summary: Continues the current medications Discussed with the regarding the patient's current conditions
[2020-10-18] MEDS: BENZONATATE 100 MG CAPSULE PO SCH ×2 (09:17→21:25)
[2020-10-18] MEDS: FENOFIBRATE NANOCRYSTALLIZED 145 MG TABLET PO SCH (09:17)
[2020-10-18] MEDS: INSULIN LISPRO 100 UNIT/ML 3 ML VIAL SUBCUT SCH ×4 (09:17→21:25)
[2020-10-18] MEDS: AMLODIPINE BESYLATE 10 MG TABLET PO SCH (09:17)
[2020-10-18] MEDS: FLUTICASONE/UMECLIDIN/VILANTER 100-62.5-25 MCG/DOSE IH SCH (09:18)
[2020-10-18] MEDS: METHYLPREDNISOLONE INJ 125 MG/2 ML SDV IV SCH (09:18)
[2020-10-18] MEDS: DOXYCYCLINE HYCLATE 100 MG in DEXTROSE 5%-WATER 250 ML IV SCH ×2 (11:08→21:26)
[2020-10-18] MEDS: TAMSULOSIN HCL 0.4 MG CAP.SR.24H PO SCH (17:32)
[2020-10-18] MEDS: DEXTROSE 5%-1/2 NORMAL SALINE 1,000 ML IV PRN (17:32)
[2020-10-18] MEDS: INSULIN GLARGINE,HUM.REC.ANLOG 1,000 UNIT/10 ML VIAL SUBCUT SCH (21:25)
[2020-10-18] MEDS: ATORVASTATIN CALCIUM 40 MG TABLET PO SCH (21:25)
[2020-10-19] MEDS: CEFEPIME 1 GM/D5W RTU 1 GM/50 ML RTUPB IV SCH (05:21)
[2020-10-19] MEDS: PANTOPRAZOLE SODIUM 40 MG TABLET.DR PO SCH (05:21)
[2020-10-19 06:03] LABS: ANION GAP 5 (5-19); BLOOD UREA NITROGEN 43 mg/dL (7-20); CALCIUM 8.9 mg/dL (8.4-10.2); CARBON DIOXIDE 26 mmol/L (22-30); CHLORIDE 99 mmol/L (98-107); GLUCOSE 275 mg/dL (75-110); POTASSIUM 4.9 mmol/L (3.6-5.0)
--- NOTE | 2020-10-19 08:36 | PDOC PROGRESS REPORT ---
Subjective Date:: 10/19/20 Subjective:: Patient is currently doing same still requiring BiPAP with FiO2 70%'s No chest pain Patient is also doing home Reason For Visit: LEFT LOWER LOBE PNEUMONIA;EXACERBATED COPD,PUI FOR Physical Exam Vital Signs: Temp Pulse Resp BP Pulse Ox 98.5 F 87 22 H 135/64 H 93 10/18/20 23:12 10/19/20 07:00 10/19/20 04:37 10/18/20 23:12 10/19/20 04:37 Pulse Oximeter Continuous Start: 10/03/20 08:46 Freq: RTQ4 Status: Complete Protocol: Document 10/10/20 03:49 CMI (Rec: 10/10/20 04:06 CMI [id number]) Pulse Oximetry Assessment Oxygen Saturation (92-100) 97 Oxygen Delivery Method CPAP Fraction of Inspired Oxygen (FIO2) 100 Equipment Usage Equipment Standby Continuous SpO2 Machine # on nurse monitor Intake & Output 10/18/20 10/19/20 10/20/20 06:59 06:59 06:59 Intake Total 1505 2217 Output Total 1775 1435 Balance -270 782 Weight 80.1 kg 79.5 kg General appearance: PRESENT: no acute distress Eye exam: PRESENT: PERRLA Mouth exam: PRESENT: neck supple Respiratory exam: PRESENT: clear to auscultation raya Cardiovascular exam: PRESENT: +S1, +S2 GI/Abdominal exam: PRESENT: normal bowel sounds, soft Neurological exam: PRESENT: alert, awake, oriented to person, oriented to place, oriented to time, oriented to situation Results Laboratory Results: 10/17/20 05:41 10/19/20 04:30 10/19/20 04:30 Sodium 130.3 L Potassium 4.9 Chloride 99 Carbon Dioxide 26 Anion Gap 5 BUN 43 H Creatinine 0.89 Est GFR ( Amer) > 60 Glucose 275 H Calcium 8.9 Impressions: Chest CT 10/03/20 08:46 IMPRESSION: There has been a significant increase in bilateral airspace disease. There is involvement of both the upper and lower lobes. Changes are more prominent in the lung periphery. There are areas of ground-glass opacity with surrounding dense consolidation. There is bronchiectasis. Pulmonary nodule previously described is no longer identified and most likely was related to infectious or inflammatory process. Chest X-Ray 10/10/20 00:00 IMPRESSION: STABLE APPEARANCE OF THE CHEST. Chest/Abdomen CTA 10/12/20 00:00 IMPRESSION: Since the CT from 10/03/2020 the patient has developed new diffuse alveolar ground-glass opacities and the patchy areas of dense consolidation in the lower lobes and to a lesser extent the right middle lobe and lingula have improved. There is no pulmonary embolus. Assessment & Plan - Diagnosis (1) Pneumonia due to 2019-nCoV Is this a current diagnosis for this admission?: Yes (2) Hyperlipidemia Qualifiers: Hyperlipidemia type: unspecified Qualified Code(s): E78.5 - Hyperlipidemia, unspecified Is this a current diagnosis for this admission?: Yes (3) Hypertension Qualifiers: Hypertension type: essential hypertension Qualified Code(s): I10 - Essential (primary) hypertension Is this a current diagnosis for this admission?: Yes (4) Severe thrombocytopenia Is this a current diagnosis for this admission?: Yes (5) Sleep apnea syndrome Qualifiers: Sleep apnea type: unspecified type Is this a current diagnosis for this admission?: Yes (6) Type 2 diabetes mellitus Qualifiers: Diabetes mellitus termination clerk insulin use: unspecified residential insulin use status Diabetes mellitus complication status: without complication Qualified Code(s): E11.9 - Type 2 diabetes mellitus without complications Is this a current diagnosis for this admission?: Yes - Time Time Spent with patient: 15-24 minutes Medications reviewed and adjusted accordingly: Yes Anticipated discharge: Home with Homehealth Anticipated DC Timeframe: Other - Plan Summary Plan Summary: Continues the current medicationsWill ask Dr. Ndiaye for further input
[2020-10-19] MEDS: METHYLPREDNISOLONE INJ 125 MG/2 ML SDV IV SCH (09:08)
[2020-10-19] MEDS: INSULIN LISPRO 100 UNIT/ML 3 ML VIAL SUBCUT SCH ×4 (09:08→21:43)
[2020-10-19] MEDS: FENOFIBRATE NANOCRYSTALLIZED 145 MG TABLET PO SCH (09:08)
[2020-10-19] MEDS: AMLODIPINE BESYLATE 10 MG TABLET PO SCH (09:08)
[2020-10-19] MEDS: FLUTICASONE/UMECLIDIN/VILANTER 100-62.5-25 MCG/DOSE IH SCH (09:11)
[2020-10-19] MEDS: BENZONATATE 100 MG CAPSULE PO SCH ×2 (09:13→21:43)
--- NOTE | 2020-10-19 10:54 | RADIOLOGY REPORT (SQ) ---
EXAM DESCRIPTION: CHEST SINGLE VIEW IMAGES COMPLETED DATE/TIME: 10/19/2020 10:24 am REASON FOR STUDY: Pneumonia COMPARISON: 10/10/2020 EXAM PARAMETERS: NUMBER OF VIEWS: One view. TECHNIQUE: Single frontal radiographic view of the chest acquired. RADIATION DOSE: NA LIMITATIONS: None. FINDINGS: LUNGS AND PLEURA: Stable coarse bilateral interstitial and left retrocardiac patchy parenc hymal opacities from prior. No large effusion. No pneumothorax. MEDIASTINUM AND HILAR STRUCTURES: Stable. HEART AND VASCULAR STRUCTURES: Enlarged, stable. BONES: No acute findings. HARDWARE: None in the chest. OTHER: No other significant finding. IMPRESSION: Diffuse coarse bilateral interstitial opacities with more focal patchy left basilar opac ities compatible with pneumonia and similar to prior. No significant effusion. TECHNICAL DOCUMENTATION: JOB ID: [id number] 2010 [employer]- All Rights Reserved Reading location - IP/workstation name: [email or web address]
[2020-10-19] MEDS: DOXYCYCLINE HYCLATE 100 MG in DEXTROSE 5%-WATER 250 ML IV SCH (12:03)
[2020-10-19 12:47] LABS: ARTERIAL BLOOD BASE EXCESS 2.4 mmol/L; ARTERIAL BLOOD H2CO3 1.25 mmol/L (1.05-1.35); ARTERIAL BLOOD PCO2 41.6 mmHg (35-45); ARTERIAL BLOOD PH 7.43 (7.35-7.45); ARTERIAL BLOOD PO2 67.9 mmHg (80-100); ARTERIAL BLOOD TOTAL CO2 28.3 mmol/L (23-27)
[2020-10-19 12:48] LABS: ARTERIAL BLOOD FIO2 80%
[2020-10-19] MEDS: TAMSULOSIN HCL 0.4 MG CAP.SR.24H PO SCH (17:26)
[2020-10-19] MEDS: INSULIN GLARGINE,HUM.REC.ANLOG 1,000 UNIT/10 ML VIAL SUBCUT SCH (21:43)
[2020-10-19] MEDS: ATORVASTATIN CALCIUM 40 MG TABLET PO SCH (21:43)
[2020-10-19] MEDS: MELATONIN 5 MG TABLET PO PRN (21:50)
[2020-10-20 05:17] LABS: HEMATOCRIT 33.5 % (37.9-51.0); MEAN CORPUSCULAR HEMOGLOBIN 25.6 pg (27.0-33.4); MEAN CORPUSCULAR HGB CONC 32.8 g/dL (32.0-36.0); MEAN CORPUSCULAR VOLUME 78 fl (80-97); RED BLOOD COUNT 4.29 10^6/uL (4.35-5.55); RED CELL DISTRIBUTION WIDTH 14.1 % (11.5-14.0)
[2020-10-20 05:35] LABS: ANION GAP 6 (5-19); BLOOD UREA NITROGEN 50 mg/dL (7-20); CALCIUM 9.3 mg/dL (8.4-10.2); CARBON DIOXIDE 27 mmol/L (22-30); CHLORIDE 102 mmol/L (98-107); GLUCOSE 179 mg/dL (75-110); POTASSIUM 5.1 mmol/L (3.6-5.0)
[2020-10-20] MEDS: PANTOPRAZOLE SODIUM 40 MG TABLET.DR PO SCH (05:42)
[2020-10-20 05:49] LABS: ABSOLUTE LYMPHOCYTES# (MANUAL) 0.7 10^3/uL (0.5-4.7); ABSOLUTE MONOCYTES # (MANUAL) 0.5 10^3/uL (0.1-1.4); BASOPHILS % (MANUAL) 0 % (0-2); EOSINOPHILS % (MANUAL) 0 % (0-6); LYMPHOCYTES % (MANUAL) 5 % (13-45); MONOCYTES % (MANUAL) 4 % (3-13); SEGMENTED NEUTROPHILS % (MAN) 91 % (42-78); TOTAL CELLS COUNTED 100
[2020-10-20 05:51] LABS: HYPOCHROMASIA SLIGHT; PLATELET COMMENT ADEQUATE; POLYCHROMASIA SLIGHT
[2020-10-20 05:52] LABS: PLATELET COUNT 156 10^3/uL (150-450)
--- NOTE | 2020-10-20 07:53 | PDOC PROGRESS REPORT ---
Subjective Date:: 10/20/20 Subjective:: Pt doing about the same in terms of Bipap needs, plt ct >150. D/w Dr. Giles, will reduce solumedrol dose Reason For Visit: LEFT LOWER LOBE PNEUMONIA;EXACERBATED COPD,PUI FOR Physical Exam Vital Signs: Temp Pulse Resp BP Pulse Ox 97.7 F 85 29 H 136/77 H 96 10/20/20 03:12 10/20/20 03:12 10/20/20 04:22 10/20/20 03:12 10/20/20 04:22 Pulse Oximeter Continuous Start: 10/03/20 08:46 Freq: RTQ4 Status: Complete Protocol: Document 10/10/20 03:49 CMI (Rec: 10/10/20 04:06 CMI [id number]) Pulse Oximetry Assessment Oxygen Saturation (92-100) 97 Oxygen Delivery Method CPAP Fraction of Inspired Oxygen (FIO2) 100 Equipment Usage Equipment Standby Continuous SpO2 Machine # on nurse monitor Intake & Output 10/19/20 10/20/20 10/21/20 06:59 06:59 06:59 Intake Total 2217 1607 Output Total 1435 725 Balance 782 882 Weight 79.5 kg 80.2 kg General appearance: PRESENT: no acute distress, well-developed, well-nourished Head exam: PRESENT: atraumatic, normocephalic Eye exam: PRESENT: conjunctiva pink, EOMI, PERRLA. ABSENT: scleral icterus Ear exam: PRESENT: normal external ear exam Mouth exam: PRESENT: moist, tongue midline Neck exam: ABSENT: carotid bruit, JVD, lymphadenopathy, thyromegaly Respiratory exam: PRESENT: clear to auscultation raya. ABSENT: rales, rhonchi, wheezes Cardiovascular exam: PRESENT: RRR. ABSENT: diastolic murmur, rubs, systolic murmur Pulses: PRESENT: normal dorsalis pedis pul Vascular exam: PRESENT: normal capillary refill GI/Abdominal exam: PRESENT: normal bowel sounds, soft. ABSENT: distended, guarding, mass, organolmegaly, rebound, tenderness Rectal exam: PRESENT: deferred Extremities exam: PRESENT: full ROM. ABSENT: calf tenderness, clubbing, pedal edema Neurological exam: PRESENT: alert, awake, oriented to person, oriented to place, oriented to time, oriented to situation, CN II-XII grossly intact. ABSENT: motor sensory deficit Psychiatric exam: PRESENT: appropriate affect, normal mood. ABSENT: homicidal ideation, suicidal ideation Skin exam: PRESENT: dry, intact, warm. ABSENT: cyanosis, rash Results Laboratory Results: 10/20/20 04:29 10/20/20 04:29 10/19/20 10/20/20 10/20/20 10:35 04:29 04:29 WBC 13.0 H RBC 4.29 L Hgb 11.0 L Hct 33.5 L MCV 78 L MCH 25.6 L MCHC 32.8 RDW 14.1 H Plt Count 156 Seg Neutrophils % Not Reportable Carbonic Acid 1.25 HCO3/H2CO3 Ratio 21:1 ABG pH 7.43 ABG pCO2 41.6 ABG pO2 67.9 L ABG HCO3 27.0 H ABG O2 Saturation 94.0 ABG Base Excess 2.4 FiO2 80% Sodium 134.7 L Potassium 5.1 H Chloride 102 Carbon Dioxide 27 Anion Gap 6 BUN 50 H Creatinine 0.90 Est GFR ( Amer) > 60 Glucose 179 H Calcium 9.3 Impressions: Chest CT 10/03/20 08:46 IMPRESSION: There has been a significant increase in bilateral airspace disease. There is involvement of both the upper and lower lobes. Changes are more prominent in the lung periphery. There are areas of ground-glass opacity with surrounding dense consolidation. There is bronchiectasis. Pulmonary nodule previously described is no longer identified and most likely was related to infectious or inflammatory process. Chest/Abdomen CTA 10/12/20 00:00 IMPRESSION: Since the CT from 10/03/2020 the patient has developed new diffuse alveolar ground-glass opacities and the patchy areas of dense consolidation in the lower lobes and to a lesser extent the right middle lobe and lingula have improved. There is no pulmonary embolus. Chest X-Ray 10/19/20 00:00 IMPRESSION: Diffuse coarse bilateral interstitial opacities with more focal patchy left basilar opacities compatible with pneumonia and similar to prior. N o significant effusion. Assessment & Plan - Diagnosis (1) Acute ITP Is this a current diagnosis for this admission?: Yes Plan: Plt ct improved, reduce solumedrol 60mg daily. - Time Time Spent with patient: 15-24 minutes
[2020-10-20] MEDS: BENZONATATE 100 MG CAPSULE PO SCH ×2 (09:39→21:38)
[2020-10-20] MEDS: AMLODIPINE BESYLATE 10 MG TABLET PO SCH (09:39)
[2020-10-20] MEDS: FENOFIBRATE NANOCRYSTALLIZED 145 MG TABLET PO SCH (09:39)
[2020-10-20] MEDS: METHYLPREDNISOLONE INJ 125 MG/2 ML SDV IV SCH (09:39)
[2020-10-20] MEDS: INSULIN LISPRO 100 UNIT/ML 3 ML VIAL SUBCUT SCH ×4 (09:40→21:39)
[2020-10-20] MEDS: FLUTICASONE/UMECLIDIN/VILANTER 100-62.5-25 MCG/DOSE IH SCH (09:40)
[2020-10-20] MEDS ORDERED: METHYLPREDNISOLONE INJ 40 MG/1 ML SDV IV SCH (10:00)
--- NOTE | 2020-10-20 10:26 | PDOC PROGRESS REPORT ---
Subjective Date:: 10/20/20 Subjective:: Patient is currently doing same Patient still require BiPAP with 80% FiO2 but patient using the high flow oxygen yesterday doing very well at daytime Discussed with the Dr. Cole yesterday regarding the adjusting the BiPAP Patient otherwise no other issues Reason For Visit: LEFT LOWER LOBE PNEUMONIA;EXACERBATED COPD,PUI FOR Physical Exam Vital Signs: Temp Pulse Resp BP Pulse Ox 98.4 F 93 20 129/60 H 92 10/20/20 09:04 10/20/20 09:04 10/20/20 08:25 10/20/20 09:04 10/20/20 09:04 Pulse Oximeter Continuous Start: 10/03/20 08:46 Freq: RTQ4 Status: Complete Protocol: Document 10/10/20 03:49 CMI (Rec: 10/10/20 04:06 CMI [id number]) Pulse Oximetry Assessment Oxygen Saturation (92-100) 97 Oxygen Delivery Method CPAP Fraction of Inspired Oxygen (FIO2) 100 Equipment Usage Equipment Standby Continuous SpO2 Machine # on nurse monitor Intake & Output 10/19/20 10/20/20 10/21/20 06:59 06:59 06:59 Intake Total 2217 1607 Output Total 1435 725 Balance 782 882 Weight 79.5 kg 80.2 kg General appearance: PRESENT: no acute distress Eye exam: PRESENT: PERRLA Neurological exam: PRESENT: alert, altered, oriented to person, oriented to place, oriented to time, oriented to situation Results Laboratory Results: 10/20/20 04:29 10/20/20 04:29 10/19/20 10/20/20 10/20/20 10:35 04:29 04:29 WBC 13.0 H RBC 4.29 L Hgb 11.0 L Hct 33.5 L MCV 78 L MCH 25.6 L MCHC 32.8 RDW 14.1 H Plt Count 156 Seg Neutrophils % Not Reportable Carbonic Acid 1.25 HCO3/H2CO3 Ratio 21:1 ABG pH 7.43 ABG pCO2 41.6 ABG pO2 67.9 L ABG HCO3 27.0 H ABG O2 Saturation 94.0 ABG Base Excess 2.4 FiO2 80% Sodium 134.7 L Potassium 5.1 H Chloride 102 Carbon Dioxide 27 Anion Gap 6 BUN 50 H Creatinine 0.90 Est GFR ( Amer) > 60 Glucose 179 H Calcium 9.3 Impressions: Chest CT 10/03/20 08:46 IMPRESSION: There has been a significant increase in bilateral airspace disease. There is involvement of both the upper and lower lobes. Changes are more prominent in the lung periphery. There are areas of ground-glass opacity with surrounding dense consolidation. There is bronchiectasis. Pulmonary nodule previously described is no longer identified and most likely was related to infectious or inflammatory process. Chest/Abdomen CTA 10/12/20 00:00 IMPRESSION: Since the CT from 10/03/2020 the patient has developed new diffuse alveolar ground-glass opacities and the patchy areas of dense consolidation in the lower lobes and to a lesser extent the right middle lobe and lingula have improved. There is no pulmonary embolus. Chest X-Ray 10/19/20 00:00 IMPRESSION: Diffuse coarse bilateral interstitial opacities with more focal patchy left basilar opacities compatible with pneumonia and similar to prior. No significant effusion. Assessment & Plan - Diagnosis (1) Pneumonia due to 2019-nCoV Is this a current diagnosis for this admission?: Yes (2) Hyperlipidemia Qualifiers: Hyperlipidemia type: unspecified Qualified Code(s): E78.5 - Hyperlipidemia, unspecified Is this a current diagnosis for this admission?: Yes (3) Hypertension Qualifiers: Hypertension type: essential hypertension Qualified Code(s): I10 - Essential (primary) hypertension Is this a current diagnosis for this admission?: Yes (4) Severe thrombocytopenia Is this a current diagnosis for this admission?: Yes (5) Sleep apnea syndrome Qualifiers: Sleep apnea type: unspecified type Is this a current diagnosis for this admission?: Yes (6) Type 2 diabetes mellitus Qualifiers: Diabetes mellitus shelter insulin use: unspecified shelter insulin use status Diabetes mellitus complication status: without complication Qualified Code(s): E11.9 - Type 2 diabetes mellitus without complications Is this a current diagnosis for this admission?: Yes - Time Time Spent with patient: 15-24 minutes Level of Care: IMCU Medications reviewed and adjusted accordingly: Yes Anticipated discharge: Home with Homehealth Anticipated DC Timeframe: Other - Plan Summary Plan Summary: Try to reduce the steroids continues to current medications discussed with the pulmonary
[2020-10-20] MEDS: TAMSULOSIN HCL 0.4 MG CAP.SR.24H PO SCH (18:04)
[2020-10-20] MEDS: ENOXAPARIN SODIUM INJ 40 MG/0.4 ML DISP.SYRIN SUBCUT SCH (18:06)
[2020-10-20] MEDS: ATORVASTATIN CALCIUM 40 MG TABLET PO SCH (21:39)
[2020-10-20] MEDS: INSULIN GLARGINE,HUM.REC.ANLOG 1,000 UNIT/10 ML VIAL SUBCUT SCH (21:39)
[2020-10-21] MEDS: PANTOPRAZOLE SODIUM 40 MG TABLET.DR PO SCH (05:51)
[2020-10-21 05:59] LABS: ABSOLUTE LYMPHOCYTES (AUTO) 0.8 10^3/uL (0.5-4.7); ABSOLUTE MONOCYTES (AUTO) 0.5 10^3/uL (0.1-1.4); ABSOLUTE NEUT (AUTO) 8.5 10^3/uL (1.7-8.2); BASOPHILS % (AUTO) 0.1 % (0-2); EOSINOPHILS % (AUTO) 0.1 % (0-6); HEMATOCRIT 33.8 % (37.9-51.0); HEMOGLOBIN 11.1 g/dL (13.5-17.0); LYMPHOCYTES % (AUTO) 8.2 % (13-45); MEAN CORPUSCULAR HGB CONC 32.9 g/dL (32.0-36.0); MEAN CORPUSCULAR VOLUME 79 fl (80-97); MONOCYTES % (AUTO) 5.2 % (3-13); PLATELET COUNT 172 10^3/uL (150-450); RED BLOOD COUNT 4.28 10^6/uL (4.35-5.55); RED CELL DISTRIBUTION WIDTH 14.6 % (11.5-14.0); SEGMENTED NEUTROPHILS % (AUTO) 86.4 % (42-78); TOTAL CELLS COUNTED % (AUTO) 100 %; WHITE BLOOD COUNT 9.8 10^3/uL (4.0-10.5)
[2020-10-21 06:12] LABS: BLOOD UREA NITROGEN 51 mg/dL (7-20); CALCIUM 9.2 mg/dL (8.4-10.2); CHLORIDE 104 mmol/L (98-107); GLUCOSE 155 mg/dL (75-110); POTASSIUM 4.9 mmol/L (3.6-5.0)
[2020-10-21 06:19] LABS: CARBON DIOXIDE 30 mmol/L (22-30)
[2020-10-21 06:24] LABS: ANION GAP 3 (5-19)
--- NOTE | 2020-10-21 08:07 | PDOC PROGRESS REPORT ---
Subjective Date:: 10/21/20 Subjective:: Platelet count stable this morning. In discussion with Dr. Giles, we will continue Solu-Medrol for the next 48 hours at the same dosing. In terms of Covid infection, he would need at least 40 mg Solu-Medrol daily to treat per those protocols. Reason For Visit: LEFT LOWER LOBE PNEUMONIA;EXACERBATED COPD,PUI FOR Physical Exam Vital Signs: Temp Pulse Resp BP Pulse Ox 98.2 F 80 21 H 127/66 H 94 10/21/20 03:11 10/21/20 03:11 10/21/20 04:23 10/21/20 03:11 10/21/20 04:23 Pulse Oximeter Continuous Start: 10/03/20 08:46 Freq: RTQ4 Status: Complete Protocol: Document 10/10/20 03:49 CMI (Rec: 10/10/20 04:06 CMI [id number]) Pulse Oximetry Assessment Oxygen Saturation (92-100) 97 Oxygen Delivery Method CPAP Fraction of Inspired Oxygen (FIO2) 100 Equipment Usage Equipment Standby Continuous SpO2 Machine # on nurse monitor Intake & Output 10/20/20 10/21/20 10/22/20 06:59 06:59 06:59 Intake Total 1607 260 Output Total 725 300 Balance 882 -40 Weight 80.2 kg 78.3 kg General appearance: PRESENT: no acute distress, well-developed, well-nourished Head exam: PRESENT: atraumatic, normocephalic Eye exam: PRESENT: conjunctiva pink, EOMI, PERRLA. ABSENT: scleral icterus Ear exam: PRESENT: normal external ear exam Mouth exam: PRESENT: moist, tongue midline Neck exam: ABSENT: carotid bruit, JVD, lymphadenopathy, thyromegaly Respiratory exam: PRESENT: clear to auscultation raya. ABSENT: rales, rhonchi, wheezes Cardiovascular exam: PRESENT: RRR. ABSENT: diastolic murmur, rubs, systolic murmur Pulses: PRESENT: normal dorsalis pedis pul Vascular exam: PRESENT: normal capillary refill GI/Abdominal exam: PRESENT: normal bowel sounds, soft. ABSENT: distended, gua rding, mass, organolmegaly, rebound, tenderness Rectal exam: PRESENT: deferred Extremities exam: PRESENT: full ROM. ABSENT: calf tenderness, clubbing, pedal edema Neurological exam: PRESENT: alert, awake, oriented to person, oriented to place, oriented to time, oriented to situation, CN II-XII grossly intact. ABSENT: young r sensory deficit Psychiatric exam: PRESENT: appropriate affect, normal mood. ABSENT: homicidal ideation, suicidal ideation Skin exam: PRESENT: dry, intact, warm. ABSENT: cyanosis, rash Results Laboratory Results: 10/21/20 05:11 10/21/20 05:11 10/21/20 10/21/20 05:11 05:11 WBC 9.8 RBC 4.28 L Hgb 11.1 L Hct 33.8 L MCV 79 L MCH 26.0 L MCHC 32.9 RDW 14.6 H Plt Count 172 Seg Neutrophils % 86.4 H Sodium 136.7 L Potassium 4.9 Chloride 104 Carbon Dioxide 30 Anion Gap 3 L BUN 51 H Creatinine 0.90 Est GFR ( Amer) > 60 Glucose 155 H Calcium 9.2 Impressions: Chest CT 10/03/20 08:46 IMPRESSION: There has been a significant increase in bilateral airspace disease. There is involvement of both the upper and lower lobes. Changes are more prominent in the lung periphery. There are areas of ground-glass opacity with surrounding dense consolidation. There is bronchiectasis. Pulmonary nodule previously described is no longer identified and most likely was related to infectious or inflammatory process. Chest/Abdomen CTA 10/12/20 00:00 IMPRESSION: Since the CT from 10/03/2020 the patient has developed new diffuse alveolar ground-glass opacities and the patchy areas of dense consolidation in the lower lobes and to a lesser extent the right middle lobe and lingula have improved. There is no pulmonary embolus. Chest X-Ray 10/19/20 00:00 IMPRESSION: Diffuse coarse bilateral interstitial opacities with more focal patchy left basilar opacities compatible with pneumonia and similar to prior. No significant effusion. Assessment & Plan - Diagnosis (1) Acute ITP Is this a current diagnosis for this admission?: Yes Plan: Continue Solu-Medrol 60 mg daily for now. Readdress on Saturday. - Time Time Spent with patient: 15-24 minutes
[2020-10-21] MEDS: METHYLPREDNISOLONE INJ 125 MG/2 ML SDV IV SCH (10:37)
[2020-10-21] MEDS: INSULIN LISPRO 100 UNIT/ML 3 ML VIAL SUBCUT SCH ×4 (10:37→21:05)
[2020-10-21] MEDS: FLUTICASONE/UMECLIDIN/VILANTER 100-62.5-25 MCG/DOSE IH SCH (10:38)
[2020-10-21] MEDS: AMLODIPINE BESYLATE 10 MG TABLET PO SCH (10:38)
[2020-10-21] MEDS: BENZONATATE 100 MG CAPSULE PO SCH ×2 (10:38→21:05)
[2020-10-21] MEDS: FENOFIBRATE NANOCRYSTALLIZED 145 MG TABLET PO SCH (10:38)
[2020-10-21] MEDS: ENOXAPARIN SODIUM INJ 40 MG/0.4 ML DISP.SYRIN SUBCUT SCH (10:39)
--- NOTE | 2020-10-21 12:16 | PDOC PROGRESS REPORT ---
Subjective Date:: 10/21/20 Subjective:: Patient currently doing same no chest pain no short of breath still on a BiPAP w ith FiO2 70% continues to steroid continues the current antibiotic As per discussed with the pulmonary continues the current management no any further interventions due to the previous lung problems multiple comorbidity and the patient is getting maximum treatment for the Covid Discussed with the sew out operator start the patient on the Lovenox again continues to watch the platelet count Reason For Visit: LEFT LOWER LOBE PNEUMONIA;EXACERBATED COPD,PUI FOR Physical Exam Vital Signs: Temp Pulse Resp BP Pulse Ox 97.4 F 81 18 129/65 H 94 10/21/20 08:23 10/21/20 08:23 10/21/20 08:23 10/21/20 08:23 10/21/20 08:23 Pulse Oximeter Continuous Start: 10/03/20 08:46 Freq: RTQ4 Status: Complete Protocol: Document 10/10/20 03:49 CMI (Rec: 10/10/20 04:06 CMI [id number]) Pulse Oximetry Assessment Oxygen Saturation (92-100) 97 Oxygen Delivery Method CPAP Fraction of Inspired Oxygen (FIO2) 100 Equipment Usage Equipment Standby Continuous SpO2 Machine # on nurse monitor Intake & Output 10/20/20 10/21/20 10/22/20 06:59 06:59 06:59 Intake Total 1607 260 Output Total 725 300 Balance 882 -40 Weight 80.2 kg 78.3 kg General appearance: PRESENT: no acute distress Eye exam: PRESENT: PERRLA Neurological exam: PRESENT: alert, awake, oriented to person, oriented to place, oriented to time, oriented to situation Results Laboratory Results: 10/21/20 05:11 10/21/20 05:11 10/21/20 10/21/20 05:11 05:11 WBC 9.8 RBC 4.28 L Hgb 11.1 L Hct 33.8 L MCV 79 L MCH 26.0 L MCHC 32.9 RDW 14.6 H Plt Count 172 Seg Neutrophils % 86.4 H Sodium 136.7 L Potassium 4.9 Chloride 104 Carbon Dioxide 30 Anion Gap 3 L BUN 51 H Creatinine 0.90 Est GFR ( Amer) > 60 Glucose 155 H Calcium 9.2 Impressions: Chest CT 10/03/20 08:46 IMPRESSION: There has been a significant increase in bilateral airspace disease. There is involvement of both the upper and lower lobes. Changes are more prominent in the lung periphery. There are areas of ground-glass opacity with surrounding dense consolidation. There is bronchiectasis. Pulmonary nodule previously described is no longer identified and most likely was related to infectious or inflammatory process. Chest/Abdomen CTA 10/12/20 00:00 IMPRESSION: Since the CT from 10/03/2020 the patient has developed new diffuse alveolar ground-glass opacities and the patchy areas of dense consolidation in the lower lobes and to a lesser extent the right middle lobe and lingula have improved. There is no pulmonary embolus. Chest X-Ray 10/19/20 00:00 IMPRESSION: Diffuse coarse bilateral interstitial opacities with more focal p atchy left basilar opacities compatible with pneumonia and similar to prior. No significant effusion. Assessment & Plan - Diagnosis (1) Pneumonia due to 2019-nCoV Is this a current diagnosis for this admission?: Yes (2) Hyperlipidemia Qualifiers: Hyperlipidemia type: unspecified Qualified Code(s): E78.5 - Hyperlipidemia, unspecified Is this a current diagnosis for this admission?: Yes (3) Hypertension Qualifiers: Hypertension type: essential hypertension Qualified Code(s): I10 - Essential (primary) hypertension Is this a current diagnosis for this admission?: Yes (4) Severe thrombocytopenia Is this a current diagnosis for this admission?: Yes (5) Sleep apnea syndrome Qualifiers: Sleep apnea type: unspecified type Is this a current diagnosis for this admission?: Yes (6) Type 2 diabetes mellitus Qualifiers: Diabetes mellitus fdc insulin use: unspecified emt intermediate insulin use status Diabetes mellitus complication status: without complication Qualified Code(s): E11.9 - Type 2 diabetes mellitus without complications Is this a current diagnosis for this admission?: Yes - Time Time Spent with patient: 15-24 minutes Level of Care: IMCU Medications reviewed and adjusted accordingly: Yes Anticipated discharge: Other Anticipated DC Timeframe: Other - Plan Summary Plan Summary: Continues to current medications still poor prognosis
[2020-10-21] MEDS: TAMSULOSIN HCL 0.4 MG CAP.SR.24H PO SCH (17:19)
[2020-10-21] MEDS: MELATONIN 5 MG TABLET PO PRN (21:05)
[2020-10-21] MEDS: ATORVASTATIN CALCIUM 40 MG TABLET PO SCH (21:05)
[2020-10-21] MEDS: INSULIN GLARGINE,HUM.REC.ANLOG 1,000 UNIT/10 ML VIAL SUBCUT SCH (21:06)
[2020-10-22] MEDS: PANTOPRAZOLE SODIUM 40 MG TABLET.DR PO SCH (05:26)
[2020-10-22 05:52] LABS: HEMOGLOBIN 10.7 g/dL (13.5-17.0); MEAN CORPUSCULAR HEMOGLOBIN 26.1 pg (27.0-33.4); MEAN CORPUSCULAR HGB CONC 33.3 g/dL (32.0-36.0); MEAN CORPUSCULAR VOLUME 78 fl (80-97); PLATELET COUNT 183 10^3/uL (150-450); RED BLOOD COUNT 4.08 10^6/uL (4.35-5.55); RED CELL DISTRIBUTION WIDTH 14.4 % (11.5-14.0); WHITE BLOOD COUNT 8.6 10^3/uL (4.0-10.5)
[2020-10-22 06:17] LABS: BLOOD UREA NITROGEN 48 mg/dL (7-20); CALCIUM 9.2 mg/dL (8.4-10.2); GLUCOSE 133 mg/dL (75-110); POTASSIUM 4.8 mmol/L (3.6-5.0)
[2020-10-22 06:23] LABS: CARBON DIOXIDE 30 mmol/L (22-30); CHLORIDE 104 mmol/L (98-107)
[2020-10-22 06:26] LABS: ANION GAP 3 (5-19)
[2020-10-22 06:32] LABS: ABSOLUTE LYMPHOCYTES# (MANUAL) 0.5 10^3/uL (0.5-4.7); ABSOLUTE MONOCYTES # (MANUAL) 0.4 10^3/uL (0.1-1.4); ANISOCYTOSIS 1+; BAND NEUTROPHILS % (MANUAL) 5 % (3-5); BASOPHILS % (MANUAL) 0 % (0-2); EOSINOPHILS % (MANUAL) 0 % (0-6); LYMPHOCYTES % (MANUAL) 6 % (13-45); MONOCYTES % (MANUAL) 5 % (3-13); PLATELET COMMENT ADEQUATE; POLYCHROMASIA 1+; SEGMENTED NEUTROPHILS % (MAN) 84 % (42-78); TOTAL CELLS COUNTED 100
[2020-10-22] MEDS: INSULIN LISPRO 100 UNIT/ML 3 ML VIAL SUBCUT SCH ×4 (09:11→22:32)
[2020-10-22] MEDS: ENOXAPARIN SODIUM INJ 40 MG/0.4 ML DISP.SYRIN SUBCUT SCH (09:12)
[2020-10-22] MEDS: BENZONATATE 100 MG CAPSULE PO SCH ×2 (09:12→22:32)
[2020-10-22] MEDS: AMLODIPINE BESYLATE 10 MG TABLET PO SCH (09:12)
[2020-10-22] MEDS: FENOFIBRATE NANOCRYSTALLIZED 145 MG TABLET PO SCH (09:12)
[2020-10-22] MEDS: METHYLPREDNISOLONE INJ 125 MG/2 ML SDV IV SCH (09:12)
[2020-10-22] MEDS: FLUTICASONE/UMECLIDIN/VILANTER 100-62.5-25 MCG/DOSE IH SCH (09:13)
--- NOTE | 2020-10-22 14:08 | PDOC PROGRESS REPORT ---
Subjective Date:: 10/22/20 Subjective:: No reported chest pain. There is continue need for oxygen supplementation due to intermittent episodes of desaturation and particularly with urination associated with significant straining on the part of the patient. No reported nausea or vomiting. No significant bowel movement x 2 days. Reason For Visit: LEFT LOWER LOBE PNEUMONIA;EXACERBATED COPD,PUI FOR Physical Exam Vital Signs: Temp Pulse Resp BP Pulse Ox 98.3 F 86 18 134/69 H 96 10/22/20 08:32 10/22/20 08:32 10/22/20 08:32 10/22/20 08:32 10/22/20 08:32 Pulse Oximeter Continuous Start: 10/03/20 08:46 Freq: RTQ4 Status: Complete Protocol: Document 10/10/20 03:49 CMI (Rec: 10/10/20 04:06 CMI [id number]) Pulse Oximetry Assessment Oxygen Saturation (92-100) 97 Oxygen Delivery Method CPAP Fraction of Inspired Oxygen (FIO2) 100 Equipment Usage Equipment Standby Continuous SpO2 Machine # on nurse monitor Intake & Output 10/21/20 10/22/20 10/23/20 06:59 06:59 06:59 Intake Total 260 894 Output Total 300 1655 Balance -40 -761 Weight 78.3 kg 65 kg Physical Exam: General appearance: PRESENT: no acute distress Head exam: PRESENT: atraumatic, normocephalic Eye exam: PRESENT: conjunctiva pink. ABSENT: pallor, sclera icterus Respiratory exam: PRESENT: clear to auscultation raya, decreased breath sounds - at lung bases Cardiovascular exam: PRESENT: RRR, +S1, +S2. ABSENT: diastolic murmur, rubs, systolic murmur GI/Abdominal exam: PRESENT: normal bowel sounds, soft Extremities exam: ABSENT: pedal edema Neurological exam: PRESENT: alert, awake Psychiatric exam: ABSENT: agitated, anxious Skin exam: PRESENT: dry, warm Results Laboratory Results: 10/22/20 05:00 10/22/20 05:00 10/22/20 10/22/20 05:00 05:00 WBC 8.6 RBC 4.08 L Hgb 10.7 L Hct 32.0 L MCV 78 L MCH 26.1 L MCHC 33.3 RDW 14.4 H Plt Count 183 Seg Neutrophils % Not Reportable Sodium 137.4 Potassium 4.8 Chloride 104 Carbon Dioxide 30 Anion Gap 3 L BUN 48 H Creatinine 0.76 Est GFR ( Amer) > 60 Glucose 133 H Calcium 9.2 Impressions: Chest CT 10/03/20 08:46 IMPRESSION: There has been a significant increase in bilateral airspace disease. There is involvement of both the upper and lower lobes. Changes are more prominent in the lung periphery. There are areas of ground-glass opacity with surrounding dense consolidation. There is bronchiectasis. Pulmonary nodule previously described is no longer identified and most likely was related to infectious or inflammatory process. Chest/Abdomen CTA 10/12/20 00:00 IMPRESSION: Since the CT from 10/03/2020 the patient has developed new diffuse alveolar ground-glass opacities and the patchy areas of dense consolidation in the lower lobes and to a lesser extent the right middle lobe and lingula have improved. There is no pulmonary embolus. Chest X-Ray 10/19/20 00:00 IMPRESSION: Diffuse coarse bilateral interstitial opacities with more focal patchy left basilar opacities compatible with pneumonia and similar to prior. No significant effusion. Assessment & Plan - Diagnosis (1) Left lower lobe pneumonia Qualifiers: Pneumonia type: due to unspecified organism Qualified Code(s): J18.9 - Pneumonia, unspecified organism Is this a current diagnosis for this admission?: Yes (2) COPD (chronic obstructive pulmonary disease) Qualifiers: COPD type: chronic bronchitis Is this a current diagnosis for this admission?: Yes (3) Type 2 diabetes mellitus Qualifiers: Diabetes mellitus prison insulin use: unspecified manager terminal insulin use status Diabetes mellitus complication status: without complication Qualified Code(s): E11.9 - Type 2 diabetes mellitus without complications Is this a current diagnosis for this admission?: Yes (4) Hypertension Qualifiers: Hypertension type: essential hypertension Qualified Code(s): I10 - Essential (primary) hypertension Is this a current diagnosis for this admission?: Yes (5) Coronary artery disease Qualifiers: Coronary Disease-Associated Artery/Lesion type: [place] artery Associated angina: without angina Is this a current diagnosis for this admission?: Yes (6) Hyperlipidemia Qualifiers: Hyperlipidemia type: unspecified Qualified Code(s): E78.5 - Hyperlipidemia, unspecified Is this a current diagnosis for this admission?: Yes (7) BPH loc w urin obs/LUTS Is this a current diagnosis for this admission?: Yes Plan: Obtain post void bladder scan and insert [place] cath if in excess of 100 ml. Increase Flomax to 0.8 mg p.o daily. Continue all other current medication management. - Time Time Spent with patient: 25-34 minutes Level of Care: IMCU Medications reviewed and adjusted accordingly: Yes Anticipated discharge: Home with Homehealth, SNF Anticipated DC Timeframe: within 72 hours - Inpatient Certification Based on my medical assessment, after consideration of the patient's comorbidities, presenting symptoms, or acuity I expect that the services needed warrant INPATIENT care.: Yes I certify that my determination is in accordance with my understanding of Medicare's requirements for reasonable and necessary INPATIENT services [42 CFR 412.3e].: Yes Medical Necessity: Significant Comorbidiites Make Outpatient Treatment Too Risky, Need Close Monitoring Due to Risk of Patient Decompensation, Need For Continuous Telemetry Monitoring, Risk of Complication if Not Cared For in Hospital, Risk of Diagnosis Which Will Require Inpatient Eval/Care/Monitoring Post Hospital Care: D/C Underwear Cutter Documentation - Plan Summary Plan Summary: See covering attending physician orders for details about care plan.
[2020-10-22] MEDS: TAMSULOSIN HCL 0.4 MG CAP.SR.24H PO SCH (18:00)
[2020-10-22] MEDS: ATORVASTATIN CALCIUM 40 MG TABLET PO SCH (22:32)
[2020-10-22] MEDS: INSULIN GLARGINE,HUM.REC.ANLOG 1,000 UNIT/10 ML VIAL SUBCUT SCH (22:34)
[2020-10-23] MEDS: PANTOPRAZOLE SODIUM 40 MG TABLET.DR PO SCH (05:06)
[2020-10-23] MEDS: INSULIN LISPRO 100 UNIT/ML 3 ML VIAL SUBCUT SCH ×4 (10:13→21:40)
[2020-10-23] MEDS: AMLODIPINE BESYLATE 10 MG TABLET PO SCH (10:20)
[2020-10-23] MEDS: BENZONATATE 100 MG CAPSULE PO SCH ×2 (10:20→21:22)
[2020-10-23] MEDS: METHYLPREDNISOLONE INJ 125 MG/2 ML SDV IV SCH (10:20)
[2020-10-23] MEDS: FENOFIBRATE NANOCRYSTALLIZED 145 MG TABLET PO SCH (10:20)
[2020-10-23] MEDS: FLUTICASONE/UMECLIDIN/VILANTER 100-62.5-25 MCG/DOSE IH SCH (10:21)
[2020-10-23] MEDS: ENOXAPARIN SODIUM INJ 40 MG/0.4 ML DISP.SYRIN SUBCUT SCH (10:21)
--- NOTE | 2020-10-23 15:37 | PDOC PROGRESS REPORT ---
Subjective Date:: 10/23/20 Subjective:: No reported chest pain. He continue to demonstrate intermittent desaturation wit h urination. Bladder scan revealed post void residual volume < 100 mL. No reported abdominal pain, nausea or vomiting. Reason For Visit: LEFT LOWER LOBE PNEUMONIA;EXACERBATED COPD,PUI FOR Physical Exam Vital Signs: Temp Pulse Resp BP Pulse Ox 98.3 F 72 30 H 134/86 H 95 10/23/20 08:34 10/23/20 08:34 10/23/20 08:34 10/23/20 08:34 10/23/20 11:40 Pulse Oximeter Continuous Start: 10/03/20 08:46 Freq: RTQ4 Status: Complete Protocol: Document 10/10/20 03:49 CMI (Rec: 10/10/20 04:06 CMI [id number]) Pulse Oximetry Assessment Oxygen Saturation (92-100) 97 Oxygen Delivery Method CPAP Fraction of Inspired Oxygen (FIO2) 100 Equipment Usage Equipment Standby Continuous SpO2 Machine # on nurse monitor Intake & Output 10/22/20 10/23/20 10/24/20 06:59 06:59 06:59 Intake Total 894 933 Output Total 1655 1235 225 Balance -761 -302 -225 Weight 65 kg 71.9 kg Physical Exam: General appearance: PRESENT: no acute distress Head exam: PRESENT: atraumatic, normocephalic Eye exam: PRESENT: conjunctiva pink. ABSENT: pallor, sclera icterus Respiratory exam: PRESENT: clear to auscultation raya, decreased breath sounds - at lung bases Cardiovascular exam: PRESENT: RRR, +S1, +S2. ABSENT: diastolic murmur, rubs, systolic murmur GI/Abdominal exam: PRESENT: normal bowel sounds, soft Extremities exam: ABSENT: pedal edema Neurological exam: PRESENT: alert, awake Psychiatric exam: ABSENT: agitated, anxious Skin exam: PRESENT: dry, warm Results Laboratory Results: 10/22/20 05:00 10/22/20 05:00 Impressions: Chest CT 10/03/20 08:46 IMPRESSION: There has been a significant increase in bilateral airspace disease. There is involvement of both the upper and lower lobes. Changes are more prominent in the lung periphery. There are areas of ground-glass opacity with surrounding dense consolidation. There is bronchiectasis. Pulmonary nodule previously described is no longer identified and most likely was related to infectious or inflammatory process. Chest/Abdomen CTA 10/12/20 00:00 IMPRESSION: Since the CT from 10/03/2020 the patient has developed new diffuse alveolar ground-glass opacities and the patchy areas of dense consolidation in the lower lobes and to a lesser extent the right middle lobe and lingula have improved. There is no pulmonary embolus. Chest X-Ray 10/19/20 00:00 IMPRESSION: Diffuse coarse bilateral interstitial opacities with more focal patchy left basilar opacities compatible with pneumonia and similar to prior. No significant effusion. 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 Diabetes mellitus complication status: without complication Qualified Code(s): E11.9 - Type 2 diabetes mellitus without complications Is this a current diagnosis for this admission?: Yes (4) Hypertension Qualifiers: Hypertension type: essential hypertension Qualified Code(s): I10 - Essential (primary) hypertension Is this a current diagnosis for this admission?: Yes (5) Coronary artery disease Qualifiers: Coronary Disease-Associated Artery/Lesion type: [place] artery Associated angina: without angina Is this a current diagnosis for this admission?: Yes (6) Hyperlipidemia Qualifiers: Hyperlipidemia type: unspecified Qualified Code(s): E78.5 - Hyperlipidemia, unspecified Is this a current diagnosis for this admission?: Yes (7) BPH loc w urin obs/LUTS Is this a current diagnosis for this admission?: Yes - Time Time Spent with patient: 25-34 minutes Level of Care: IMCU Medications reviewed and adjusted accordingly: Yes Anticipated discharge: Home with Homehealth Anticipated DC Timeframe: within 72 hours - Inpatient Certification Based on my medical assessment, after consideration of the patient's comorbidities, presenting symptoms, or acuity I expect that the services needed warrant INPATIENT care.: Yes I certify that my determination is in accordance with my understanding of Medicare's requirements for reasonable and necessary INPATIENT services [42 CFR 412.3e].: Yes Medical Necessity: Significant Comorbidiites Make Outpatient Treatment Too Risky, Need Close Monitoring Due to Risk of Patient Decompensation, Need For IV Fluids, Need For Continuous Telemetry Monitoring, Risk of Complication if Not Cared For in Hospital, Risk of Diagnosis Which Will Require Inpatient Eval/Care/Monitoring Post Hospital Care: D/C 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 Review response to increase in Flomax dosage. Obtain CBC with diff and BMP in AM.
[2020-10-23] MEDS: TAMSULOSIN HCL 0.4 MG CAP.SR.24H PO SCH (17:24)
[2020-10-23] MEDS: ATORVASTATIN CALCIUM 40 MG TABLET PO SCH (21:22)
[2020-10-23] MEDS: INSULIN GLARGINE,HUM.REC.ANLOG 1,000 UNIT/10 ML VIAL SUBCUT SCH (21:41)
[2020-10-23 23:03] LABS: ARTERIAL BLOOD BASE EXCESS 2.3 mmol/L; ARTERIAL BLOOD H2CO3 1.25 mmol/L (1.05-1.35); ARTERIAL BLOOD HCO3 26.9 mmol/L (20-24); ARTERIAL BLOOD O2 SATURATION 95.5 % (94-98); ARTERIAL BLOOD PCO2 41.5 mmHg (35-45); ARTERIAL BLOOD PH 7.43 (7.35-7.45); ARTERIAL BLOOD PO2 75.5 mmHg (80-100); ARTERIAL BLOOD TOTAL CO2 28.1 mmol/L (23-27)
[2020-10-23 23:04] LABS: ARTERIAL BLOOD FIO2 100
[2020-10-24] MEDS: PANTOPRAZOLE SODIUM 40 MG TABLET.DR PO SCH (05:22)
[2020-10-24 06:05] LABS: HEMATOCRIT 31.1 % (37.9-51.0); HEMOGLOBIN 10.4 g/dL (13.5-17.0); MEAN CORPUSCULAR HEMOGLOBIN 26.6 pg (27.0-33.4); MEAN CORPUSCULAR HGB CONC 33.6 g/dL (32.0-36.0); MEAN CORPUSCULAR VOLUME 79 fl (80-97); PLATELET COUNT 166 10^3/uL (150-450); RED BLOOD COUNT 3.93 10^6/uL (4.35-5.55); RED CELL DISTRIBUTION WIDTH 14.6 % (11.5-14.0)
[2020-10-24 06:33] LABS: ANION GAP 7 (5-19); BLOOD UREA NITROGEN 42 mg/dL (7-20); CALCIUM 8.9 mg/dL (8.4-10.2); CARBON DIOXIDE 28 mmol/L (22-30); CHLORIDE 102 mmol/L (98-107); GLUCOSE 121 mg/dL (75-110); POTASSIUM 4.6 mmol/L (3.6-5.0)
[2020-10-24 07:23] LABS: ABSOLUTE LYMPHOCYTES# (MANUAL) 1.2 10^3/uL (0.5-4.7); ABSOLUTE MONOCYTES # (MANUAL) 0.3 10^3/uL (0.1-1.4); BAND NEUTROPHILS % (MANUAL) 2 % (3-5); BASOPHILS % (MANUAL) 0 % (0-2); EOSINOPHILS % (MANUAL) 0 % (0-6); LYMPHOCYTES % (MANUAL) 7 % (13-45); MONOCYTES % (MANUAL) 3 % (3-13); SEGMENTED NEUTROPHILS % (MAN) 78 % (42-78); TOTAL CELLS COUNTED 100
[2020-10-24 07:25] LABS: ANISOCYTOSIS SLIGHT; HYPOCHROMASIA SLIGHT; POIKILOCYTOSIS SLIGHT; POLYCHROMASIA SLIGHT
[2020-10-24 07:26] LABS: METAMYELOCYTES % (MANUAL) 4 % (0-1); OVALOCYTES SLIGHT; PLATELET COMMENT ADEQUATE; TEAR DROP CELLS SLIGHT
--- NOTE | 2020-10-24 08:08 | PDOC PROGRESS REPORT ---
Subjective Date:: 10/24/20 Subjective:: Per nursing patient is still doing poorly. Still having high oxygen requirements. However platelet count is stable so we discussed decreasing Solu- Medrol further to 40 mg daily. Discussed with nursing as well as primary team last week that Solu-Medrol 40 mg daily would be equivalent to dexamethasone 6 mg twice daily which would be the Covid dosing. Reason For Visit: LEFT LOWER LOBE PNEUMONIA;EXACERBATED COPD,PUI FOR Physical Exam Vital Signs: Temp Pulse Resp BP Pulse Ox 97.6 F 70 18 123/57 L 91 L 10/24/20 04:04 10/24/20 04:04 10/24/20 04:04 10/24/20 04:04 10/24/20 04:04 Pulse Oximeter Continuous Start: 10/03/20 08:46 Freq: RTQ4 Status: Complete Protocol: Document 10/10/20 03:49 CMI (Rec: 10/10/20 04:06 CMI [id number]) Pulse Oximetry Assessment Oxygen Saturation (92-100) 97 Oxygen Delivery Method CPAP Fraction of Inspired Oxygen (FIO2) 100 Equipment Usage Equipment Standby Continuous SpO2 Machine # on nurse monitor Intake & Output 10/23/20 10/24/20 10/25/20 06:59 06:59 06:59 Intake Total 933 600 Output Total 1235 1025 Balance -302 -425 Weight 71.9 kg 69.8 kg General appearance: PRESENT: no acute distress, well-developed, well-nourished Head exam: PRESENT: atraumatic, normocephalic Eye exam: PRESENT: conjunctiva pink, EOMI, PERRLA. ABSENT: scleral icterus Ear exam: PRESENT: normal external ear exam Mouth exam: PRESENT: moist, tongue midline Neck exam: ABSENT: carotid bruit, JVD, lymphadenopathy, thyromegaly Respiratory exam: PRESENT: clear to auscultation raya. ABSENT: rales, rhonchi, wheezes Cardiovascular exam: PRESENT: RRR. ABSENT: diastolic murmur, rubs, systolic murmur Pulses: PRESENT: normal dorsalis pedis pul Vascular exam: PRESENT: normal capillary refill GI/Abdominal exam: PRESENT: normal bowel sounds, soft. ABSENT: distended, guarding, mass, organolmegaly, rebound, tenderness Rectal exam: PRESENT: deferred Extremities exam: PRESENT: full ROM. ABSENT: calf tenderness, clubbing, pedal edema Neurological exam: PRESENT: alert, awake, oriented to person, oriented to place, oriented to time, oriented to situation, CN II-XII grossly intact. ABSENT: motor sensory deficit Psychiatric exam: PRESENT: appropriate affect, normal mood. ABSENT: homicidal ideation, suicidal ideation Skin exam: PRESENT: dry, intact, warm. ABSENT: cyanosis, rash Results Laboratory Results: 10/24/20 04:18 10/24/20 04:18 10/23/20 10/24/20 10/24/20 22:35 04:18 04:18 WBC 9.0 RBC 3.93 L Hgb 10.4 L Hct 31.1 L MCV 79 L MCH 26.6 L MCHC 33.6 RDW 14.6 H Plt Count 166 Seg Neutrophils % Not Reportable Carbonic Acid 1.25 HCO3/H2CO3 Ratio 21:1 ABG pH 7.43 ABG pCO2 41.5 ABG pO2 75.5 L ABG HCO3 26.9 H ABG O2 Saturation 95.5 ABG Base Excess 2.3 FiO2 100 Sodium 136.5 L Potassium 4.6 Chloride 102 Carbon Dioxide 28 Anion Gap 7 BUN 42 H Creatinine 0.79 Est GFR ( Amer) > 60 Glucose 121 H Calcium 8.9 Impressions: Chest CT 10/03/20 08:46 IMPRESSION: There has been a significant increase in bilateral airspace disease. There is involvement of both the upper and lower lobes. Changes are more prominent in the lung periphery. There are areas of ground-glass opacity with surrounding dense consolidation. There is bronchiectasis. Pulmonary nodule previously described is no longer identified and most likely was related to infectious or inflammatory process. Chest/Abdomen CTA 10/12/20 00:00 IMPRESSION: Since the CT from 10/03/2020 the patient has developed new diffuse alveolar ground-glass opacities and the patchy areas of dense consolidation in the lower lobes and to a lesser extent the right middle lobe and lingula have improved. There is no pulmonary embolus. Chest X-Ray 10/19/20 00:00 IMPRESSION: Diffuse coarse bilateral interstitial opacities with more focal patchy left basilar opacities compatible with pneumonia and similar to prior. No significant effusion. Assessment & Plan - Diagnosis (1) Acute ITP Is this a current diagnosis for this admission?: Yes Plan: Decrease Solu-Medrol to 40 mg daily but he will remain on that for now. We will follow peripherally. - Time Time Spent with patient: 35 or more minutes
[2020-10-24] MEDS: INSULIN LISPRO 100 UNIT/ML 3 ML VIAL SUBCUT SCH ×4 (08:30→22:00)
[2020-10-24] MEDS: FENOFIBRATE NANOCRYSTALLIZED 145 MG TABLET PO SCH (10:35)
[2020-10-24] MEDS: BENZONATATE 100 MG CAPSULE PO SCH ×2 (10:35→22:01)
[2020-10-24] MEDS: METHYLPREDNISOLONE INJ 40 MG/1 ML SDV IV SCH (10:36)
[2020-10-24] MEDS: AMLODIPINE BESYLATE 10 MG TABLET PO SCH (10:36)
[2020-10-24] MEDS: FLUTICASONE/UMECLIDIN/VILANTER 100-62.5-25 MCG/DOSE IH SCH (10:37)
[2020-10-24] MEDS: ENOXAPARIN SODIUM INJ 40 MG/0.4 ML DISP.SYRIN SUBCUT SCH (10:50)
--- NOTE | 2020-10-24 11:05 | PDOC PROGRESS REPORT ---
Subjective Date:: 10/24/20 Subjective:: No reported chest pain. He remain on NIPPV and supplemental oxygen. No reported abdominal pain, nausea or vomiting. Reason For Visit: LEFT LOWER LOBE PNEUMONIA;EXACERBATED COPD,PUI FOR Physical Exam Vital Signs: Temp Pulse Resp BP Pulse Ox 98.2 F 43 L 22 H 130/58 H 90 L 10/24/20 08:01 10/24/20 08:01 10/24/20 08:01 10/24/20 08:01 10/24/20 08:01 Pulse Oximeter Continuous Start: 10/03/20 08:46 Freq: RTQ4 Status: Complete Protocol: Document 10/10/20 03:49 CMI (Rec: 10/10/20 04:06 CMI [id number]) Pulse Oximetry Assessment Oxygen Saturation (92-100) 97 Oxygen Delivery Method CPAP Fraction of Inspired Oxygen (FIO2) 100 Equipment Usage Equipment Standby Continuous SpO2 Machine # on nurse monitor Intake & Output 10/23/20 10/24/20 10/25/20 06:59 06:59 06:59 Intake Total 933 600 Output Total 1235 1025 Balance -302 -425 Weight 71.9 kg 69.8 kg Physical Exam: General appearance: PRESENT: no acute distress Head exam: PRESENT: atraumatic, normocephalic Eye exam: PRESENT: conjunctiva pink. ABSENT: pallor, sclera icterus Respiratory exam: PRESENT: clear to auscultation raya, decreased breath sounds - at lung bases Cardiovascular exam: PRESENT: RRR, +S1, +S2. ABSENT: diastolic murmur, rubs, systolic murmur GI/Abdominal exam: PRESENT: normal bowel sounds, soft Extremities exam: ABSENT: pedal edema Neurological exam: PRESENT: alert, awake Psychiatric exam: ABSENT: agitated, anxious Skin exam: PRESENT: dry, warm Results Laboratory Results: 10/24/20 04:18 10/24/20 04:18 10/23/20 10/24/20 10/24/20 22:35 04:18 04:18 WBC 9.0 RBC 3.93 L Hgb 10.4 L Hct 31.1 L MCV 79 L MCH 26.6 L MCHC 33.6 RDW 14.6 H Plt Count 166 Seg Neutrophils % Not Reportable Carbonic Acid 1.25 HCO3/H2CO3 Ratio 21:1 ABG pH 7.43 ABG pCO2 41.5 ABG pO2 75.5 L ABG HCO3 26.9 H ABG O2 Saturation 95.5 ABG Base Excess 2.3 FiO2 100 Sodium 136.5 L Potassium 4.6 Chloride 102 Carbon Dioxide 28 Anion Gap 7 BUN 42 H Creatinine 0.79 Est GFR ( Amer) > 60 Glucose 121 H Calcium 8.9 Impressions: Chest CT 10/03/20 08:46 IMPRESSION: There has been a significant increase in bilateral airspace disease. There is involvement of both the upper and lower lobes. Changes are more prominent in the lung periphery. There are areas of ground-glass opacity with surrounding dense consolidation. There is bronchiectasis. Pulmonary nodule previously described is no longer identified and most likely was related to infectious or inflammatory process. Chest/Abdomen CTA 10/12/20 00:00 IMPRESSION: Since the CT from 10/03/2020 the patient has developed new diffuse alveolar ground-glass opacities and the patchy areas of dense consolidation in the lower lobes and to a lesser extent the right middle lobe and lingula have improved. There is no pulmonary embolus. Chest X-Ray 10/19/20 00:00 IMPRESSION: Diffuse coarse bilateral interstitial opacities with more focal patchy left basilar opacities compatible with pneumonia and similar to prior. N o significant effusion. Assessment & Plan - Diagnosis (1) Left lower lobe pneumonia Qualifiers: Pneumonia type: due to unspecified organism Qualified Code(s): J18.9 - Pneumonia, unspecified organism Is this a current diagnosis for this admission?: Yes (2) COPD (chronic obstructive pulmonary disease) Qualifiers: COPD type: chronic bronchitis Is this a current diagnosis for this admission?: Yes (3) Type 2 diabetes mellitus Qualifiers: Diabetes mellitus custodial insulin use: unspecified custodial insulin use status Diabetes mellitus complication status: without complication Qualified Code(s): E11.9 - Type 2 diabetes mellitus without complications Is this a current diagnosis for this admission?: Yes (4) Hypertension Qualifiers: Hypertension type: essential hypertension Qualified Code(s): I10 - Essential (primary) hypertension Is this a current diagnosis for this admission?: Yes (5) Coronary artery disease Qualifiers: Coronary Disease-Associated Artery/Lesion type: [place] artery Associated angina: without angina Is this a current diagnosis for this admission?: Yes (6) Hyperlipidemia Qualifiers: Hyperlipidemia type: unspecified Qualified Code(s): E78.5 - Hyperlipidemia, unspecified Is this a current diagnosis for this admission?: Yes (7) BPH loc w urin obs/LUTS Is this a current diagnosis for this admission?: Yes - Time Time Spent with patient: 25-34 minutes Level of Care: IMCU Medications reviewed and adjusted accordingly: Yes Anticipated discharge: SNF Anticipated DC Timeframe: within 72 hours - Inpatient Certification Based on my medical assessment, after consideration of the patient's comorbidities, presenting symptoms, or acuity I expect that the services needed warrant INPATIENT care.: Yes I certify that my determination is in accordance with my understanding of Medicare's requirements for reasonable and necessary INPATIENT services [42 CFR 412.3e].: Yes Medical Necessity: Significant Comorbidiites Make Outpatient Treatment Too Risky, Need Close Monitoring Due to Risk of Patient Decompensation, Need For IV Fluids, Need For Continuous Telemetry Monitoring, Risk of Complication if Not Cared For in Hospital, Risk of Diagnosis Which Will Require Inpatient Eval/Care/Monitoring Post Hospital Care: D/C Emergency Management Specialist Documentation, D/C or Transfer Summary - Plan Summary Plan Summary: Continue current medication management.
[2020-10-24 14:56] LABS: PATH REVIEW PATHOLOGIST REVIEWED
[2020-10-24] MEDS: TAMSULOSIN HCL 0.4 MG CAP.SR.24H PO SCH (18:02)
[2020-10-24] MEDS: INSULIN GLARGINE,HUM.REC.ANLOG 1,000 UNIT/10 ML VIAL SUBCUT SCH (22:01)
[2020-10-24] MEDS: ATORVASTATIN CALCIUM 40 MG TABLET PO SCH (22:01)
[2020-10-24] MEDS: MELATONIN 5 MG TABLET PO PRN (22:10)
[2020-10-25] MEDS: PANTOPRAZOLE SODIUM 40 MG TABLET.DR PO SCH (05:02)
[2020-10-25] MEDS: INSULIN LISPRO 100 UNIT/ML 3 ML VIAL SUBCUT SCH ×4 (08:16→21:45)
[2020-10-25] MEDS: BENZONATATE 100 MG CAPSULE PO SCH ×2 (09:19→21:49)
[2020-10-25] MEDS: AMLODIPINE BESYLATE 10 MG TABLET PO SCH (09:19)
[2020-10-25] MEDS: ENOXAPARIN SODIUM INJ 40 MG/0.4 ML DISP.SYRIN SUBCUT SCH (09:19)
[2020-10-25] MEDS: FLUTICASONE/UMECLIDIN/VILANTER 100-62.5-25 MCG/DOSE IH SCH (09:20)
[2020-10-25] MEDS: FENOFIBRATE NANOCRYSTALLIZED 145 MG TABLET PO SCH (09:20)
[2020-10-25] MEDS: METHYLPREDNISOLONE INJ 40 MG/1 ML SDV IV SCH (09:20)
[2020-10-25] MEDS: TAMSULOSIN HCL 0.4 MG CAP.SR.24H PO SCH (17:57)
--- NOTE | 2020-10-25 20:09 | PDOC PROGRESS REPORT ---
Subjective Date:: 10/25/20 Subjective:: Patient with severe COVID-19 positive test (U07.1, COVID-19) with Acute Pneumoni a (J12.89, Other viral pneumonia)(If respiratory failure or sepsis present, add as separate assessment).He continues to require supplemental oxygen Reason For Visit: LEFT LOWER LOBE PNEUMONIA;EXACERBATED COPD,PUI FOR Physical Exam Vital Signs: Temp Pulse Resp BP Pulse Ox 97.7 F 87 20 116/65 91 L 10/25/20 16:08 10/25/20 19:00 10/25/20 16:28 10/25/20 16:08 10/25/20 16:28 Pulse Oximeter Continuous Start: 10/03/20 08:46 Freq: RTQ4 Status: Complete Protocol: Document 10/10/20 03:49 CMI (Rec: 10/10/20 04:06 CMI [id number]) Pulse Oximetry Assessment Oxygen Saturation (92-100) 97 Oxygen Delivery Method CPAP Fraction of Inspired Oxygen (FIO2) 100 Equipment Usage Equipment Standby Continuous SpO2 Machine # on nurse monitor Intake & Output 10/24/20 10/25/20 10/26/20 06:59 06:59 06:59 Intake Total 600 500 340 Output Total 1025 900 625 Balance -425 -400 -285 Weight 69.8 kg 70.5 kg General appearance: PRESENT: no acute distress Eye exam: PRESENT: PERRLA Respiratory exam: PRESENT: clear to auscultation raya Cardiovascular exam: PRESENT: +S1, +S2 GI/Abdominal exam: PRESENT: soft Neurological exam: PRESENT: alert Results Laboratory Results: 10/24/20 04:18 10/24/20 04:18 Impressions: Chest CT 10/03/20 08:46 IMPRESSION: There has been a significant increase in bilateral airspace disease. There is involvement of both the upper and lower lobes. Changes are more prominent in the lung periphery. There are areas of ground-glass opacity with surrounding dense consolidation. There is bronchiectasis. Pulmonary nodule previously described is no longer identified and most likely was related to infectious or inflammatory process. Chest/Abdomen CTA 10/12/20 00:00 IMPRESSION: Since the CT from 10/03/2020 the patient has developed new diffuse alveolar ground-glass opacities and the patchy areas of dense consolidation in the lower lobes and to a lesser extent the right middle lobe and lingula have improved. There is no pulmonary embolus. Chest X-Ray 10/19/20 00:00 IMPRESSION: Diffuse coarse bilateral interstitial opacities with more focal patchy left basilar opacities compatible with pneumonia and similar to prior. No significant effusion. Assessment & Plan - Diagnosis (1) Acute hypoxemic respiratory failure Is this a current diagnosis for this admission?: Yes Plan: Continue present treatment (2) COVID-19 Is this a current diagnosis for this admission?: Yes (3) Pneumonia, unspecified organism Is this a current diagnosis for this admission?: Yes (4) Thrombocytopenia, unspecified Is this a current diagnosis for this admission?: Yes - Time Time Spent with patient: 15-24 minutes Level of Care: IMCU Medications reviewed and adjusted accordingly: Yes Anticipated discharge: Home Anticipated DC Timeframe: Other
[2020-10-25] MEDS: INSULIN GLARGINE,HUM.REC.ANLOG 1,000 UNIT/10 ML VIAL SUBCUT SCH (21:48)
[2020-10-25] MEDS: ATORVASTATIN CALCIUM 40 MG TABLET PO SCH (21:49)
[2020-10-26] MEDS: PANTOPRAZOLE SODIUM 40 MG TABLET.DR PO SCH (05:08)
[2020-10-26] MEDS: INSULIN LISPRO 100 UNIT/ML 3 ML VIAL SUBCUT SCH ×4 (12:06→21:42)
[2020-10-26] MEDS: FENOFIBRATE NANOCRYSTALLIZED 145 MG TABLET PO SCH (12:10)
[2020-10-26] MEDS: AMLODIPINE BESYLATE 10 MG TABLET PO SCH (12:10)
[2020-10-26] MEDS: METHYLPREDNISOLONE INJ 40 MG/1 ML SDV IV SCH (12:10)
[2020-10-26] MEDS: ENOXAPARIN SODIUM INJ 40 MG/0.4 ML DISP.SYRIN SUBCUT SCH (12:10)
[2020-10-26] MEDS: BENZONATATE 100 MG CAPSULE PO SCH ×2 (12:10→21:43)
[2020-10-26] MEDS: FLUTICASONE/UMECLIDIN/VILANTER 100-62.5-25 MCG/DOSE IH SCH (12:11)
--- NOTE | 2020-10-26 14:05 | PDOC PROGRESS REPORT ---
Subjective Date:: 10/26/20 Subjective:: Patient is currently doing fair patient's denied any chest pain no short of [place] [facility] Patient oxygen requirement is coming down Reason For Visit: LEFT LOWER LOBE PNEUMONIA;EXACERBATED COPD,PUI FOR Physical Exam Vital Signs: Temp Pulse Resp BP Pulse Ox 98.3 F 96 20 120/76 90 L 10/26/20 12:12 10/26/20 12:12 10/26/20 12:12 10/26/20 12:12 10/26/20 12:12 Pulse Oximeter Continuous Start: 10/03/20 08:46 Freq: RTQ4 Status: Complete Protocol: Document 10/10/20 03:49 CMI (Rec: 10/10/20 04:06 CMI [id number]) Pulse Oximetry Assessment Oxygen Saturation (92-100) 97 Oxygen Delivery Method CPAP Fraction of Inspired Oxygen (FIO2) 100 Equipment Usage Equipment Standby Continuous SpO2 Machine # on nurse monitor Intake & Output 10/25/20 10/26/20 10/27/20 06:59 06:59 06:59 Intake Total 500 340 Output Total 900 825 Balance -400 -485 Weight 70.5 kg 74.1 kg General appearance: PRESENT: no acute distress Eye exam: PRESENT: PERRLA Mouth exam: PRESENT: neck supple Respiratory exam: PRESENT: decreased breath sounds Cardiovascular exam: PRESENT: +S1, +S2 Neurological exam: PRESENT: alert, awake, oriented to person, oriented to place, oriented to time, oriented to situation Results Laboratory Results: 10/24/20 04:18 10/24/20 04:18 Impressions: Chest CT 10/03/20 08:46 IMPRESSION: There has been a significant increase in bilateral airspace disease. There is involvement of both the upper and lower lobes. Changes are more prominent in the lung periphery. There are areas of ground-glass opacity with surrounding dense consolidation. There is bronchiectasis. Pulmonary nodule previously described is no longer identified and most likely was related to infectious or inflammatory process. Chest/Abdomen CTA 10/12/20 00:00 IMPRESSION: Since the CT from 10/03/2020 the patient has developed new diffuse alveolar ground-glass opacities and the patchy areas of dense consolidation in the lower lobes and to a lesser extent the right middle lobe and lingula have improved. There is no pulmonary embolus. Chest X-Ray 12/09/20 00:00 IMPRESSION: Diffuse coarse bilateral interstitial opacities with more focal patchy left basilar opacities compatible with pneumonia and similar to prior. No significant effusion. Assessment & Plan - Diagnosis (1) Pneumonia due to 2019-nCoV Is this a current diagnosis for this admission?: Yes (2) Hyperlipidemia Qualifiers: Hyperlipidemia type: unspecified Qualified Code(s): E78.5 - Hyperlipidemia, unspecified Is this a current diagnosis for this admission?: Yes (3) Hypertension Qualifiers: Hypertension type: essential hypertension Qualified Code(s): I10 - Essential (primary) hypertension Is this a current diagnosis for this admission?: Yes (4) Severe thrombocytopenia Is this a current diagnosis for this admission?: Yes (5) Sleep apnea syndrome Qualifiers: Sleep apnea type: unspecified type Qualified Code(s): G47.30 - Sleep apnea, unspecified Is this a current diagnosis for this admission?: Yes (6) Type 2 diabetes mellitus Qualifiers: 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 mellitus 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
[2020-10-26] MEDS: TAMSULOSIN HCL 0.4 MG CAP.SR.24H PO SCH (17:47)
[2020-10-26] MEDS: ATORVASTATIN CALCIUM 40 MG TABLET PO SCH (21:43)
[2020-10-26] MEDS: INSULIN GLARGINE,HUM.REC.ANLOG 1,000 UNIT/10 ML VIAL SUBCUT SCH (21:43)
[2020-10-27] MEDS: PANTOPRAZOLE SODIUM 40 MG TABLET.DR PO SCH (05:18)
[2020-10-27 06:10] LABS: HEMATOCRIT 35.8 % (37.9-51.0); HEMOGLOBIN 11.7 g/dL (13.5-17.0); MEAN CORPUSCULAR HEMOGLOBIN 25.7 pg (27.0-33.4); MEAN CORPUSCULAR HGB CONC 32.7 g/dL (32.0-36.0); MEAN CORPUSCULAR VOLUME 79 fl (80-97); PLATELET COUNT 162 10^3/uL (150-450); RED BLOOD COUNT 4.55 10^6/uL (4.35-5.55); RED CELL DISTRIBUTION WIDTH 14.6 % (11.5-14.0); WHITE BLOOD COUNT 9.2 10^3/uL (4.0-10.5)
[2020-10-27 06:22] LABS: BLOOD UREA NITROGEN 43 mg/dL (7-20); CALCIUM 8.9 mg/dL (8.4-10.2); CARBON DIOXIDE 29 mmol/L (22-30); CHLORIDE 104 mmol/L (98-107); GLUCOSE 130 mg/dL (75-110); POTASSIUM 4.2 mmol/L (3.6-5.0)
[2020-10-27 06:34] LABS: ANION GAP 4 (5-19)
[2020-10-27 06:50] LABS: ABSOLUTE LYMPHOCYTES# (MANUAL) 1.6 10^3/uL (0.5-4.7); ABSOLUTE MONOCYTES # (MANUAL) 0.2 10^3/uL (0.1-1.4); BASOPHILS % (MANUAL) 0 % (0-2); EOSINOPHILS % (MANUAL) 0 % (0-6); LYMPHOCYTES % (MANUAL) 17 % (13-45); MONOCYTES % (MANUAL) 2 % (3-13); NUCLEATED RED BLOOD CELLS 1 /100 WBC (0); SEGMENTED NEUTROPHILS % (MAN) 81 % (42-78); TOTAL CELLS COUNTED 100
[2020-10-27 06:52] LABS: PLATELET COMMENT ADEQUATE
[2020-10-27 06:54] LABS: ANISOCYTOSIS SLIGHT; HYPOCHROMASIA SLIGHT
[2020-10-27] MEDS: INSULIN LISPRO 100 UNIT/ML 3 ML VIAL SUBCUT SCH ×4 (08:55→22:36)
[2020-10-27 10:26] LABS: ARTERIAL BLOOD BASE EXCESS 2.2 mmol/L; ARTERIAL BLOOD HCO3 27.7 mmol/L (20-24); ARTERIAL BLOOD PCO2 46.6 mmHg (35-45); ARTERIAL BLOOD PH 7.39 (7.35-7.45); ARTERIAL BLOOD PO2 70.6 mmHg (80-100); ARTERIAL BLOOD TOTAL CO2 29.1 mmol/L (23-27)
[2020-10-27 10:28] LABS: ARTERIAL BLOOD FIO2 100%
--- NOTE | 2020-10-27 10:55 | PDOC PROGRESS REPORT ---
Subjective Date:: 10/27/20 Subjective:: Patient is still currently doing same Patient's denied any chest pain Still require CPAP with 70% FiO2 No fever no chills Patient have a herpes breakout on the groin area Reason For Visit: LEFT LOWER LOBE PNEUMONIA;EXACERBATED COPD,PUI FOR Physical Exam Vital Signs: Temp Pulse Resp BP Pulse Ox 97.6 F 87 27 H 119/68 98 10/27/20 08:12 10/27/20 08:12 10/27/20 10:13 10/27/20 08:12 10/27/20 10:13 Pulse Oximeter Continuous Start: 10/03/20 08:46 Freq: RTQ4 Status: Complete Protocol: Document 10/10/20 03:49 CMI (Rec: 10/10/20 04:06 CMI [id number]) Pulse Oximetry Assessment Oxygen Saturation (92-100) 97 Oxygen Delivery Method CPAP Fraction of Inspired Oxygen (FIO2) 100 Equipment Usage Equipment Standby Continuous SpO2 Machine # on nurse monitor Intake & Output 10/26/20 10/27/20 10/28/20 06:59 06:59 06:59 Intake Total 340 760 Output Total 825 1050 Balance -485 -290 Weight 74.1 kg 75.7 kg General appearance: PRESENT: no acute distress Eye exam: PRESENT: PERRLA Mouth exam: PRESENT: neck supple Respiratory exam: PRESENT: decreased breath sounds GI/Abdominal exam: PRESENT: normal bowel sounds, soft Neurological exam: PRESENT: alert, awake, oriented to person, oriented to place Results Laboratory Results: 10/27/20 04:55 10/27/20 04:55 10/27/20 10/27/20 10/27/20 04:55 04:55 10:08 WBC 9.2 RBC 4.55 Hgb 11.7 L Hct 35.8 L MCV 79 L MCH 25.7 L MCHC 32.7 RDW 14.6 H Plt Count 162 Seg Neutrophils % Not Reportable Carbonic Acid 1.40 H HCO3/H2CO3 Ratio 19:1 ABG pH 7.39 ABG pCO2 46.6 H ABG pO2 70.6 L ABG HCO3 27.7 H ABG O2 Saturation 94.0 ABG Base Excess 2.2 FiO2 100% Sodium 136.8 L Potassium 4.2 Chloride 104 Carbon Dioxide 29 Anion Gap 4 L BUN 43 H Creatinine 0.75 Est GFR ( Amer) > 60 Glucose 130 H Calcium 8.9 Impressions: Chest CT 10/03/20 08:46 IMPRESSION: There has been a significant increase in bilateral airspace disease. There is involvement of both the upper and lower lobes. Changes are more prominent in the lung periphery. There are areas of ground-glass opacity with surrounding dense consolidation. There is bronchiectasis. Pulmonary nodule previously described is no longer identified and most likely was related to infectious or inflammatory process. Chest/Abdomen CTA 10/12/20 00:00 IMPRESSION: Since the CT from 10/03/2020 the patient has developed new diffuse alveolar ground-glass opacities and the patchy areas of dense consolidation in the lower lobes and to a lesser extent the right middle lobe and lingula have improved. There is no pulmonary embolus. Chest X-Ray 10/19/20 00:00 IMPRESSION: Diffuse coarse bilateral interstitial opacities with more focal patchy left basilar opacities compatible with pneumonia and similar to prior. No significant effusion. Assessment & Plan - Diagnosis (1) Pneumonia due to 2019-nCoV Is this a current diagnosis for this admission?: Yes (2) Hyperlipidemia Qualifiers: Hyperlipidemia type: unspecified Qualified Code(s): E78.5 - Hyperlipidemia, unspecified Is this a current diagnosis for this admission?: Yes (3) Hypertension Qualifiers: Hypertension type: essential hypertension Qualified Code(s): I10 - Essential (primary) hypertension Is this a current diagnosis for this admission?: Yes (4) Severe thrombocytopenia Is this a current diagnosis for this admission?: Yes (5) Sleep apnea syndrome Qualifiers: Sleep apnea type: unspecified type Qualified Code(s): G47.30 - Sleep apnea, unspecified Is this a current diagnosis for this admission?: Yes (6) Type 2 diabetes mellitus Qualifiers: Diabetes mellitus penitentiary insulin use: unspecified penitentiary insulin use status Diabetes mellitus complication status: without complication Qualified Code(s): E11.9 - Type 2 diabetes mellitus without complications Is this a current diagnosis for this admission?: Yes (7) Shingles Qualifiers: Herpes zoster complications: without complications Qualified Code(s): B02.9 - Zoster without complications Is this a current diagnosis for this admission?: Yes Plan: We will start the patient on Valtrex - Time Time Spent with patient: 25-34 minutes Level of Care: IMCU Medications reviewed and adjusted accordingly: Yes Anticipated discharge: Home with Homehealth Anticipated DC Timeframe: Other - Plan Summary Plan Summary: We will start the patient on Valtrex we will repeat the CT angiogram still difficult to wean off from the CPAP will reassess the Dr. Cole's to further evaluate repeat the Covid test done yesterday Discussed with the regarding the patient's current condition still guarded
[2020-10-27] MEDS: ENOXAPARIN SODIUM INJ 40 MG/0.4 ML DISP.SYRIN SUBCUT SCH (11:53)
[2020-10-27] MEDS: VALACYCLOVIR HCL 500 MG TABLET PO SCH ×3 (11:54→22:37)
[2020-10-27] MEDS: AMLODIPINE BESYLATE 10 MG TABLET PO SCH (11:54)
[2020-10-27] MEDS: FENOFIBRATE NANOCRYSTALLIZED 145 MG TABLET PO SCH (11:54)
[2020-10-27] MEDS: BENZONATATE 100 MG CAPSULE PO SCH ×2 (11:54→22:36)
[2020-10-27] MEDS: METHYLPREDNISOLONE INJ 40 MG/1 ML SDV IV SCH (11:55)
[2020-10-27] MEDS: FLUTICASONE/UMECLIDIN/VILANTER 100-62.5-25 MCG/DOSE IH SCH (11:55)
[2020-10-27] MEDS: TAMSULOSIN HCL 0.4 MG CAP.SR.24H PO SCH (18:35)
[2020-10-27] MEDS: INSULIN GLARGINE,HUM.REC.ANLOG 1,000 UNIT/10 ML VIAL SUBCUT SCH (22:36)
[2020-10-27] MEDS: ATORVASTATIN CALCIUM 40 MG TABLET PO SCH (22:36)
[2020-10-27] MEDS: MELATONIN 5 MG TABLET PO PRN (22:36)
[2020-10-27 23:40] LABS: ARTERIAL BLOOD BASE EXCESS -4.1 mmol/L; ARTERIAL BLOOD H2CO3 1.08 mmol/L (1.05-1.35); ARTERIAL BLOOD HCO3 20.5 mmol/L (20-24); ARTERIAL BLOOD O2 SATURATION 88.2 % (94-98); ARTERIAL BLOOD PCO2 35.8 mmHg (35-45); ARTERIAL BLOOD PH 7.38 (7.35-7.45); ARTERIAL BLOOD TOTAL CO2 21.6 mmol/L (23-27)
[2020-10-27 23:46] LABS: ARTERIAL BLOOD FIO2 60%
[2020-10-28] MEDS: PANTOPRAZOLE SODIUM 40 MG TABLET.DR PO SCH (05:34)
[2020-10-28] MEDS: VALACYCLOVIR HCL 500 MG TABLET PO SCH ×3 (05:34→22:10)
[2020-10-28 06:00] LABS: ANION GAP 7 (5-19); BLOOD UREA NITROGEN 52 mg/dL (7-20); CALCIUM 8.7 mg/dL (8.4-10.2); CARBON DIOXIDE 28 mmol/L (22-30); CHLORIDE 103 mmol/L (98-107); GLUCOSE 128 mg/dL (75-110); POTASSIUM 4.4 mmol/L (3.6-5.0)
[2020-10-28] MEDS: INSULIN LISPRO 100 UNIT/ML 3 ML VIAL SUBCUT SCH ×4 (08:44→22:08)
[2020-10-28] MEDS: FENOFIBRATE NANOCRYSTALLIZED 145 MG TABLET PO SCH (09:48)
[2020-10-28] MEDS: AMLODIPINE BESYLATE 10 MG TABLET PO SCH (09:48)
[2020-10-28] MEDS: BENZONATATE 100 MG CAPSULE PO SCH ×2 (09:48→22:09)
[2020-10-28] MEDS: METHYLPREDNISOLONE INJ 40 MG/1 ML SDV IV SCH (09:48)
[2020-10-28] MEDS: FLUTICASONE/UMECLIDIN/VILANTER 100-62.5-25 MCG/DOSE IH SCH (09:49)
[2020-10-28] MEDS: ENOXAPARIN SODIUM INJ 40 MG/0.4 ML DISP.SYRIN SUBCUT SCH (09:49)
--- NOTE | 2020-10-28 12:26 | PDOC PROGRESS REPORT ---
Subjective Date:: 10/28/20 Subjective:: Patient is currently doing sameStill require a CPAP Reason For Visit: LEFT LOWER LOBE PNEUMONIA;EXACERBATED COPD,PUI FOR Physical Exam Vital Signs: Temp Pulse Resp BP Pulse Ox 97.5 F 88 42 H 122/66 97 10/28/20 07:26 10/28/20 07:26 10/28/20 08:30 10/28/20 07:26 10/28/20 08:30 Pulse Oximeter Continuous Start: 10/03/20 08:46 Freq: RTQ4 Status: Complete Protocol: Document 10/10/20 03:49 CMI (Rec: 10/10/20 04:06 CMI [id number]) Pulse Oximetry Assessment Oxygen Saturation (92-100) 97 Oxygen Delivery Method CPAP Fraction of Inspired Oxygen (FIO2) 100 Equipment Usage Equipment Standby Continuous SpO2 Machine # on nurse monitor Intake & Output 10/27/20 10/28/20 10/29/20 06:59 06:59 06:59 Intake Total 760 390 Output Total 1050 400 Balance -290 -10 Weight 75.7 kg 78.2 kg General appearance: PRESENT: well-developed, well-nourished Head exam: PRESENT: atraumatic, normocephalic Eye exam: PRESENT: conjunctiva pink, EOMI, PERRLA. ABSENT: scleral icterus Ear exam: PRESENT: normal external ear exam Mouth exam: PRESENT: moist, tongue midline Neck exam: PRESENT: full ROM. ABSENT: carotid bruit, JVD, lymphadenopathy, thyromegaly Respiratory exam: PRESENT: clear to auscultation raya Cardiovascular exam: PRESENT: RRR. ABSENT: diastolic murmur, rubs, systolic murmur Vascular exam: PRESENT: normal capillary refill GI/Abdominal exam: PRESENT: normal bowel sounds, soft. ABSENT: distended, guarding, mass, organolmegaly, rebound, tenderness Rectal exam: PRESENT: deferred Neurological exam: PRESENT: alert, awake, oriented to person, oriented to place. ABSENT: motor sensory deficit Psychiatric exam: PRESENT: appropriate affect, normal mood. ABSENT: homicidal ideation, suicidal ideation Skin exam: PRESENT: dry, intact, warm. ABSENT: cyanosis, rash Results Laboratory Results: 10/27/20 04:55 10/28/20 04:39 10/27/20 10/28/20 23:30 04:39 Carbonic Acid 1.08 HCO3/H2CO3 Ratio 18:1 ABG pH 7.38 ABG pCO2 35.8 ABG pO2 55.0 L ABG HCO3 20.5 ABG O2 Saturation 88.2 L ABG Base Excess -4.1 FiO2 60% Sodium 138.0 Potassium 4.4 Chloride 103 Carbon Dioxide 28 Anion Gap 7 BUN 52 H Creatinine 0.92 Est GFR ( Amer) > 60 Glucose 128 H Calcium 8.7 Impressions: Chest CT 10/03/20 08:46 IMPRESSION: There has been a significant increase in bilateral airspace disease. There is involvement of both the upper and lower lobes. Changes are more prominent in the lung periphery. There are areas of ground-glass opacity with surrounding dense consolidation. There is bronchiectasis. Pulmonary nodule previously described is no longer identified and most likely was related to infectious or inflammatory process. Chest/Abdomen CTA 10/12/20 00:00 IMPRESSION: Since the CT from 10/03/2020 the patient has developed new diffuse alveolar ground-glass opacities and the patchy areas of dense consolidation in the lower lobes and to a lesser extent the right middle lobe and lingula have improved. There is no pulmonary embolus. Chest X-Ray 10/19/20 00:00 IMPRESSION: Diffuse coarse bilateral interstitial opacities with more focal patchy left basilar opacities compatible with pneumonia and similar to prior. No significant effusion. Assessment & Plan - Diagnosis (1) Pneumonia due to 2019-nCoV Is this a current diagnosis for this admission?: Yes (2) Hyperlipidemia Qualifiers: Hyperlipidemia type: unspecified Qualified Code(s): E78.5 - Hyperlipidemia, unspecified Is this a current diagnosis for this admission?: Yes (3) Hypertension Qualifiers: Hypertension type: essential hypertension Qualified Code(s): I10 - Essential (primary) hypertension Is this a current diagnosis for this admission?: Yes (4) Severe thrombocytopenia Is this a current diagnosis for this admission?: Yes (5) Sleep apnea syndrome Qualifiers: Sleep apnea type: unspecified type Qualified Code(s): G47.30 - Sleep apnea, unspecified Is this a current diagnosis for this admission?: Yes (6) Type 2 diabetes mellitus Qualifiers: Diabetes mellitus halfway insulin use: unspecified make up editor insulin use status Diabetes mellitus complication status: without complication Qualified Code(s): E11.9 - Type 2 diabetes mellitus without complications Is this a current diagnosis for this admission?: Yes (7) Shingles Qualifiers: Herpes zoster complications: without complications Qualified Code(s): B02.9 - Zoster without complications Is this a current diagnosis for this admission?: Yes - Time Time Spent with patient: 15-24 minutes Level of Care: IMCU Medications reviewed and adjusted accordingly: Yes Anticipated discharge: Other Anticipated DC Timeframe: Other - Plan Summary Plan Summary: Continues to current medications overall poor prognosis
--- NOTE | 2020-10-28 13:05 | PDOC CONSULTATION ---
Consultation Consult Date: 10/28/20 Provider Consulted: DERRICK SARMIENTO Consult reason:: Continued pulmonary infiltrates and hypoxia in a patient with Covid pneumonia History of Present Illness Admission Date/PCP: 10/01/20 15:17 ZAIRE GEIGER MD History of Present Illness: TAHRI FOURNIER is a 64 year old male This consult is being done remotely because patient currently resides in the Covid unit. History and data is obtained from the medical record. This patient presented with acute dyspnea and shortness of breath and has been hospitalized for last month with COVID-19 pneumonia. While at times he has required low flow oxygen he currently requires a high concentration of oxygen to maintain his saturations. According to the medical chart he was using a CPAP device at night and may have been wearing home O2 as well. Smoking history is not available as is occupational history. 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 Neurological Medical History: Denies: Seizures Endocrine Medical History: Reports: Diabetes Mellitus Type 1, Diabetes Mellitus Type 2 Denies: Hyperthyroidism, Hypothyroidism Renal/ Medical History: Denies: End Stage Renal Disease Malignancy Medical History: Denies: Leukemia, Lung Cancer GI Medical History: Reports: Gastroesophageal Reflux Disease, Hiatal Hernia Denies: Crohn's Disease Musculoskeltal Medical History: Reports: Arthritis - bursitis left shoulder, back bone spurs Denies: Fibromyalgia Psychiatric Medical History: Denies: Bipolar Disorder, Dementia, Depression, Post Traumatic Stress Disorder Hematology: Reports: Anemia, Other - ITP Infectious Medical History: Denies: HIV Past Surgical History Past Surgical History: Reports: Cardiac Catheterization - 5 stents, Cholecystectomy, Coronary Stent - X5, Orthopedic Surgery - right leg, back surgery, Tonsillectomy Denies: Appendectomy, Colostomy, Coronary Artery Bypass Graft, Gastric Bypass Surgery, Herniorrhaphy, Pacemaker Social History Smoking Status: Former Smoker Cigarettes Packs Per Day: 1 Number of Years Smokin Frequency of Alcohol Use: None Hx Recreational Drug Use: No Drugs: None Hx Prescription Drug Abuse: No - Advance Directive Resuscitation Status: Full Code Family History Family History: Arthritis, CAD, CVA, DM, Hyperlipidemia, Hypertension, Malignancy Parental Family History Reviewed: No Children Family History Reviewed: No Sibling(s) Family History Reviewed.: No Medication/Allergy Home Medications: Amlodipine Besylate [Norvasc 10 mg Tablet] 10 mg PO DAILY 12/24/19 Atorvastatin Calcium [Lipitor 40 mg Tablet] 40 mg PO QHS 12/24/19 Fluticasone/Umeclidin/Vilanter [Trelegy 100-62.5-25 Mcg Ellipta 14 Dose/Dpi] 1 puff IH DAILY 12/24/19 Levocetirizine Dihydrochloride [Xyzal] 5 mg PO DAILY 12/24/19 Montelukast Sodium [Singulair 10 mg Tablet] 10 mg PO QPM 12/24/19 Omeprazole 40 mg PO BID 12/24/19 Tamsulosin HCl [Flomax 0.4 mg Cap.sr] 0.4 mg PO QPM 12/24/19 Fenofibrate Nanocrystallized [Fenofibrate] 145 mg PO DAILY 09/17/20 Insulin Glargine,Hum.rec.anlog [Lantus Insulin 100 Unit/1 ml 10 ml] 30 unit SUBCUT QHS 09/17/20 Insulin Regular, Human [Humulin R (Reg) Insulin 100 unit/mL] 0 unit SUBCUT .SLIDING SCALE 09/17/20 Nitroglycerin [Nitrostat 0.4 mg (1/150 Gr) Tabs 25/Bottle] 1 tab SL Q5MP PRN 09/17/20 Tiotropium Br/Olodaterol HCl [Stiolto Respimat Inhal Offerman] 2 puff IH DAILY 09/17/20 Tramadol HCl [Ultram 50 mg Tablet] 50 mg PO QID 09/17/20 Prednisone 10 mg PO DAILY #200 tablet 09/23/20 Furosemide [Lasix 40 mg Tablet] 40 mg PO DAILY 10/02/20 Allergies/Adverse Reactions: clopidogrel bisulfate [From Plavix] Adverse Reaction (Severe, Verified 10/01/20 11:29) bleeding from ear/NOSE Physical Exam Vital Signs: Temp Pulse Resp BP Pulse Ox 97.5 F 88 36 H 122/66 97 10/28/20 07:26 10/28/20 07:26 10/28/20 12:04 10/28/20 07:26 10/28/20 12:04 Pulse Oximeter Continuous Start: 10/03/20 08:46 Freq: RTQ4 Status: Complete Protocol: Document 10/10/20 03:49 CMI (Rec: 10/10/20 04:06 CMI [id number]) Pulse Oximetry Assessment Oxygen Saturation (92-100) 97 Oxygen Delivery Method CPAP Fraction of Inspired Oxygen (FIO2) 100 Equipment Usage Equipment Standby Continuous SpO2 Machine # on nurse monitor Intake & Output 10/27/20 10/28/20 10/29/20 06:59 06:59 06:59 Intake Total 760 390 Output Total 1050 400 Balance -290 -10 Weight 75.7 kg 78.2 kg Exam: I can only note the physical exam findings which have been documented on the chart by those physicians that have directly examined the patient. Results Laboratory Results: 10/27/20 04:55 10/28/20 04:39 10/27/20 10/28/20 23:30 04:39 Carbonic Acid 1.08 HCO3/H2CO3 Ratio 18:1 ABG pH 7.38 ABG pCO2 35.8 ABG pO2 55.0 L ABG HCO3 20.5 ABG O2 Saturation 88.2 L ABG Base Excess -4.1 FiO2 60% Sodium 138.0 Potassium 4.4 Chloride 103 Carbon Dioxide 28 Anion Gap 7 BUN 52 H Creatinine 0.92 Est GFR ( Amer) > 60 Glucose 128 H Calcium 8.7 Impressions: Chest CT 10/03/20 08:46 IMPRESSION: There has been a significant increase in bilateral airspace disease. There is involvement of both the upper and lower lobes. Changes are more prominent in the lung periphery. There are areas of ground-glass opacity with surrounding dense consolidation. There is bronchiectasis. Pulmonary nodule previously described is no longer identified and most likely was related to infectious or inflammatory process. Chest/Abdomen CTA 10/12/20 00:00 IMPRESSION: Since the CT from 10/03/2020 the patient has developed new diffuse alveolar ground-glass opacities and the patchy areas of dense consolidation in the lower lobes and to a lesser extent the right middle lobe and lingula have improved. There is no pulmonary embolus. Chest X-Ray 10/19/20 00:00 IMPRESSION: Diffuse coarse bilateral interstitial opacities with more focal p atchy left basilar opacities compatible with pneumonia and similar to prior. No significant effusion. Status: Image reviewed by me - I have had a chance to review all of this patient's radiographic images since his admission to the hospital. He has a diffuse reticular interstitial infiltrative process that at times exhibits a geographic distribution and at times exhibits a somewhat diffuse homogeneous distribution. Assessment & Plan - Diagnosis (1) Acute hypoxemic respiratory failure Is this a current diagnosis for this admission?: Yes Plan: This patient has hypoxia related to diffuse pulmonary infiltrates from COVID-19 pneumonia. Currently he is on high flow O2 which I would continue. He may be a candidate for further noninvasive ventilation with a trilogy device. While he may benefit from a device to help with his oxygenation he appears to have adequate ventilation at this time as evidenced by his PCO2's on his arterial blood gas. I think it clear that his diffusion block is related to the diffuse infiltrative process related to his COVID-19 infection. He is on protocol doses of steroid which I agree with completely. I would certainly continue that for the foreseeable future. Of additional concern in this patient with COVID-19 pneumonia and significant sequelae from the disease is the concern about his underlying cardiac function. He apparently had known coronary disease prior to his admission to the hospital. I think we should reassess his cardiac function at this time to see if there is been any Covid related dysfunction or other cause for a congestive cardiomyopathy. I think this can fairly easily be accomplished with a proBNP and echocardiogram. There are of course a number of reports related to a congestive cardiomyopathy related to COVID-19 infection. If his proBNP and echocardiographic evaluation of left ventricular function suggests good left ventricular function my other consideration would be for a brief ICU stay for [place] catheterization to evaluate PA pressures and pulmonary capillary wedge pressure reading. It is entirely possible this patient has had subacute thromboembolic disease resulting in significant pulmonary hypertension. This may contribute to his underlying breathlessness and ways that would be difficult to detect outside of right heart catheterization. I will follow with you during this hospitalization and review the results of the BNP and 2D echocardiogram and proceed accordingly. (2) COVID-19 Is this a current diagnosis for this admission?: Yes Plan: This patient is on protocol treatment for his COVID-19 infection and should be continued. I suspect this is the cause for his underlying pulmonary infiltrative process however I would also be concerned about potential other cardiac dysfunction as noted below. (3) Pneumonia due to 2019-nCoV Is this a current diagnosis for this admission?: Yes Plan: Unfortunately continue protocol treatment and follow-up with serial chest x-rays is all that can be done at this time. (4) COPD (chronic obstructive pulmonary disease) Qualifiers: COPD type: chronic bronchitis Is this a current diagnosis for this admission?: Yes
--- NOTE | 2020-10-28 13:37 | RADIOLOGY REPORT (SQ) ---
EXAM DESCRIPTION: CT CHEST WITH IMAGES COMPLETED DATE/TIME: 10/28/2020 1:19 pm REASON FOR STUDY: COVID PNA COMPARISON: 10/12/2020 TECHNIQUE: CT scan of the chest performed using helical scanning technique with dynamic intravenous contrast injection. Images reviewed with lung, soft tissue and bone windows. Reconstructed coronal and sagittal MPR and MIP images reviewed. All images stored on PACS. All CT scanners at this facility use dose modulation, iterative reconstruction, and/or weight based d osing when appropriate to reduce radiation dose to as low as reasonably achievable (ALARA). [facility]: Dose Right [facility]: CareDose [facility]: Dose Right [facility]: Teradose 4D [facility]: [place] CONTRAST TYPE AND DOSE: contrast/concentration: Isovue 350.00 mmol/ml; Total Contrast Delivered: 80. 0 ml; Total Saline Delivered: 45.0 ml RENAL FUNCTION: SEE CHART RADIATION DOSE: CT Rad equipment meets quality standard of care and radiation dose reduction techniq ues were employed. CTDIvol: 8.7 mGy. DLP: 319 mGy-cm. . LIMITATIONS: None. FINDINGS: LUNGS AND PLEURA: Trachea and bronchi are patent with unchanged basilar predominant bronch iectasis bilaterally. Persistent diffuse ground-glass attenuation throughout the lungs. Persistent additional patchy more focal consolidation involving the bilateral lower lobes, grossly stable from p rior. No significant pleural effusion. No pneumothorax. Evaluation for pulmonary nodules limited s econdary to airspace disease. HILAR AND MEDIASTINAL STRUCTURES: There is been interval decrease in size of previously described med iastinal nodes. Largest subcarinal node measures 13 mm in short axis, previously 15 mm (series 2, im age 38). No new adenopathy. HEART AND VASCULAR STRUCTURES: No central pulmonary embolus. Exam not optimized for evaluation of pu lmonary emboli. Normal heart size. Scattered coronary atherosclerosis. No pericardial effusion. HARDWARE: None in the chest. UPPER ABDOMEN: Area of hypoattenuation in the lateral aspect of the spleen, stable measuring 4.0 cm m aximally, and indeterminate. Prior cholecystectomy. THYROID AND OTHER SOFT TISSUES: No masses. No adenopathy. BONES: No acute bony abnormality. No suspicious lytic or blastic osseous lesions. OTHER: No other significant finding. IMPRESSION: 1. Grossly stable diffuse bilateral alveolar ground-glass opacities throughout both ana gs with additional more focal patchy areas of consolidation within the bilateral lower lobes. No sig nificant effusion. No pneumothorax. 2. Decreased mediastinal adenopathy. TECHNICAL DOCUMENTATION: JOB ID: [id number] Quality ID # 436: Final reports with documentation of one or more dose reduction techniques (e.g., Au tomated exposure control, adjustment of the mA and/or kV according to patient size, use of iterative reconstruction technique) 2010 [employer]- All Rights Reserved Reading location - IP/workstation name: [email or web address]
[2020-10-28] MEDS: TAMSULOSIN HCL 0.4 MG CAP.SR.24H PO SCH (17:49)
[2020-10-28] MEDS: INSULIN GLARGINE,HUM.REC.ANLOG 1,000 UNIT/10 ML VIAL SUBCUT SCH (22:09)
[2020-10-28] MEDS: ATORVASTATIN CALCIUM 40 MG TABLET PO SCH (22:09)
[2020-10-29] MEDS: PANTOPRAZOLE SODIUM 40 MG TABLET.DR PO SCH (05:35)
[2020-10-29] MEDS: VALACYCLOVIR HCL 500 MG TABLET PO SCH ×3 (05:35→22:10)
[2020-10-29 05:58] LABS: HEMATOCRIT 31.7 % (37.9-51.0); HEMOGLOBIN 10.3 g/dL (13.5-17.0); MEAN CORPUSCULAR HEMOGLOBIN 25.6 pg (27.0-33.4); MEAN CORPUSCULAR HGB CONC 32.7 g/dL (32.0-36.0); MEAN CORPUSCULAR VOLUME 78 fl (80-97); PLATELET COUNT 178 10^3/uL (150-450); RED BLOOD COUNT 4.05 10^6/uL (4.35-5.55); RED CELL DISTRIBUTION WIDTH 14.4 % (11.5-14.0); WHITE BLOOD COUNT 11.6 10^3/uL (4.0-10.5)
[2020-10-29 06:12] LABS: ANION GAP 11 (5-19); BLOOD UREA NITROGEN 59 mg/dL (7-20); CALCIUM 8.6 mg/dL (8.4-10.2); CARBON DIOXIDE 24 mmol/L (22-30); CHLORIDE 105 mmol/L (98-107); GLUCOSE 98 mg/dL (75-110); POTASSIUM 4.2 mmol/L (3.6-5.0)
[2020-10-29 06:25] LABS: ABSOLUTE MONOCYTES # (MANUAL) 1.2 10^3/uL (0.1-1.4); BAND NEUTROPHILS % (MANUAL) 2 % (3-5); BASOPHILS % (MANUAL) 0 % (0-2); EOSINOPHILS % (MANUAL) 0 % (0-6); LYMPHOCYTES % (MANUAL) 17 % (13-45); MONOCYTES % (MANUAL) 10 % (3-13); SEGMENTED NEUTROPHILS % (MAN) 71 % (42-78); TOTAL CELLS COUNTED 100
[2020-10-29 06:26] LABS: ANISOCYTOSIS 1+; PLATELET COMMENT ADEQUATE; POLYCHROMASIA 1+
[2020-10-29] MEDS: INSULIN LISPRO 100 UNIT/ML 3 ML VIAL SUBCUT SCH ×4 (09:28→21:29)
[2020-10-29] MEDS: BENZONATATE 100 MG CAPSULE PO SCH ×2 (09:32→21:29)
[2020-10-29] MEDS: METHYLPREDNISOLONE INJ 40 MG/1 ML SDV IV SCH (09:32)
[2020-10-29] MEDS: FENOFIBRATE NANOCRYSTALLIZED 145 MG TABLET PO SCH (09:32)
[2020-10-29] MEDS: AMLODIPINE BESYLATE 10 MG TABLET PO SCH (09:32)
[2020-10-29] MEDS: ENOXAPARIN SODIUM INJ 40 MG/0.4 ML DISP.SYRIN SUBCUT SCH (09:32)
[2020-10-29] MEDS: FLUTICASONE/UMECLIDIN/VILANTER 100-62.5-25 MCG/DOSE IH SCH (09:36)
[2020-10-29] MEDS: TAMSULOSIN HCL 0.4 MG CAP.SR.24H PO SCH (17:05)
--- NOTE | 2020-10-29 19:46 | PDOC PROGRESS REPORT ---
Subjective Date:: 10/29/20 Subjective:: Patient seen by the bedside he has severe Covid pneumonia Patient is not talking Reason For Visit: LEFT LOWER LOBE PNEUMONIA;EXACERBATED COPD,PUI FOR Physical Exam Vital Signs: Temp Pulse Resp BP Pulse Ox 98.6 F 73 36 H 109/65 96 10/29/20 16:25 10/29/20 16:25 10/29/20 16:42 10/29/20 16:25 10/29/20 16:42 Pulse Oximeter Continuous Start: 10/03/20 08:46 Freq: RTQ4 Status: Complete Protocol: Document 10/10/20 03:49 CMI (Rec: 10/10/20 04:06 CMI [id number]) Pulse Oximetry Assessment Oxygen Saturation (92-100) 97 Oxygen Delivery Method CPAP Fraction of Inspired Oxygen (FIO2) 100 Equipment Usage Equipment Standby Continuous SpO2 Machine # on nurse monitor Intake & Output 10/28/20 10/29/20 10/30/20 06:59 06:59 06:59 Intake Total 390 777 720 Output Total 400 700 125 Balance -10 77 595 Weight 78.2 kg 74.7 kg 74.7 kg General appearance: PRESENT: mild distress Respiratory exam: PRESENT: rhonchi Cardiovascular exam: PRESENT: +S1, +S2 GI/Abdominal exam: PRESENT: soft Results Laboratory Results: 10/29/20 04:57 10/29/20 04:57 10/29/20 10/29/20 04:57 04:57 WBC 11.6 H RBC 4.05 L Hgb 10.3 L Hct 31.7 L MCV 78 L MCH 25.6 L MCHC 32.7 RDW 14.4 H Plt Count 178 Seg Neutrophils % Not Reportable Sodium 139.7 Potassium 4.2 Chloride 105 Carbon Dioxide 24 Anion Gap 11 BUN 59 H Creatinine 1.00 Est GFR ( Amer) > 60 Glucose 98 Calcium 8.6 Impressions: Chest/Abdomen CTA 10/12/20 00:00 IMPRESSION: Since the CT from 10/03/2020 the patient has developed new diffuse alveolar ground-glass opacities and the patchy areas of dense consolidation in the lower lobes and to a lesser extent the right middle lobe and lingula have improved. There is no pulmonary embolus. Chest X-Ray 10/19/20 00:00 IMPRESSION: Diffuse coarse bilateral interstitial opacities with more focal patchy left basilar opacities compatible with pneumonia and similar to prior. No significant effusion. Chest CT 10/28/20 00:00 IMPRESSION: 1. Grossly stable diffuse bilateral alveolar ground-glass opacities throughout both lungs with additional more focal patchy areas of consolidation within the bilateral lower lobes. No significant effusion. No pneumothorax. 2. Decreased mediastinal adenopathy. Assessment & Plan - Diagnosis (1) Acute hypoxemic respiratory failure Is this a current diagnosis for this admission?: Yes Plan: .Continue oxygen supplementation with high flow oxygen (2) COVID-19 Is this a current diagnosis for this admission?: Yes (3) Pneumonia, unspecified organism Is this a current diagnosis for this admission?: Yes (4) Thrombocytopenia, unspecified Is this a current diagnosis for this admission?: Yes - Time Time Spent with patient: 25-34 minutes Level of Care: IMCU Medications reviewed and adjusted accordingly: Yes Anticipated DC Timeframe: Other
[2020-10-29] MEDS: INSULIN GLARGINE,HUM.REC.ANLOG 1,000 UNIT/10 ML VIAL SUBCUT SCH (21:29)
[2020-10-29] MEDS: ATORVASTATIN CALCIUM 40 MG TABLET PO SCH (21:29)
[2020-10-30] MEDS: VALACYCLOVIR HCL 500 MG TABLET PO SCH ×3 (05:39→21:17)
[2020-10-30] MEDS: PANTOPRAZOLE SODIUM 40 MG TABLET.DR PO SCH (05:39)
[2020-10-30 06:11] LABS: HEMATOCRIT 34.1 % (37.9-51.0); HEMOGLOBIN 10.9 g/dL (13.5-17.0); MEAN CORPUSCULAR HEMOGLOBIN 25.2 pg (27.0-33.4); MEAN CORPUSCULAR VOLUME 79 fl (80-97); PLATELET COUNT 182 10^3/uL (150-450); RED BLOOD COUNT 4.33 10^6/uL (4.35-5.55); RED CELL DISTRIBUTION WIDTH 14.9 % (11.5-14.0); WHITE BLOOD COUNT 11.4 10^3/uL (4.0-10.5)
[2020-10-30 06:40] LABS: ALKALINE PHOSPHATASE 70 U/L (38-126); ANION GAP 8 (5-19); ASPARTATE AMINO TRANSFERASE 33 U/L (17-59); BILIRUBIN,DIRECT 0.4 mg/dL (0.0-0.4); BLOOD UREA NITROGEN 71 mg/dL (7-20); CALCIUM 8.4 mg/dL (8.4-10.2); CARBON DIOXIDE 25 mmol/L (22-30); CHLORIDE 107 mmol/L (98-107); GLUCOSE 108 mg/dL (75-110); POTASSIUM 4.2 mmol/L (3.6-5.0); TOTAL PROTEIN 6.2 g/dL (6.3-8.2)
[2020-10-30] MEDS: INSULIN LISPRO 100 UNIT/ML 3 ML VIAL SUBCUT SCH ×4 (11:18→21:16)
[2020-10-30] MEDS: METHYLPREDNISOLONE INJ 40 MG/1 ML SDV IV SCH (11:20)
[2020-10-30] MEDS: ENOXAPARIN SODIUM INJ 40 MG/0.4 ML DISP.SYRIN SUBCUT SCH (11:20)
[2020-10-30] MEDS ORDERED: HYDRALAZINE HCL INJ/PF 20 MG/1 ML SDV IV PRN (15:03)
--- NOTE | 2020-10-30 15:20 | PDOC PROGRESS REPORT ---
Subjective Date:: 10/30/20 Subjective:: Patient is not able to swallow, he has vesicular rash in the mouth, in the groin , suspicious for herpes. Patient already on acyclovir but is not able to swallow the medication, this to be transitioned to IV acyclovir for the treatment of herpes simplex infection. Genital swab was also taken to confirm diagnosis. Patient is on IV Solu-Medrol, admitted for Covid pneumonia, is alert but is not actually communicating, his condition remains guarded Reason For Visit: LEFT LOWER LOBE PNEUMONIA;EXACERBATED COPD,PUI FOR Physical Exam Vital Signs: Temp Pulse Resp BP Pulse Ox 98.3 F 96 22 H 110/73 98 10/30/20 12:22 10/30/20 12:22 10/30/20 12:22 10/30/20 12:22 10/30/20 12:22 Pulse Oximeter Continuous Start: 10/03/20 08:46 Freq: RTQ4 Status: Complete Protocol: Document 10/10/20 03:49 CMI (Rec: 10/10/20 04:06 CMI [id number]) Pulse Oximetry Assessment Oxygen Saturation (92-100) 97 Oxygen Delivery Method CPAP Fraction of Inspired Oxygen (FIO2) 100 Equipment Usage Equipment Standby Continuous SpO2 Machine # on nurse monitor Intake & Output 10/29/20 10/30/20 10/31/20 06:59 06:59 06:59 Intake Total 777 720 Output Total 700 375 Balance 77 345 Weight 74.7 kg 76.1 kg General appearance: PRESENT: no acute distress Eye exam: PRESENT: PERRLA Respiratory exam: PRESENT: clear to auscultation raya Cardiovascular exam: PRESENT: +S1, +S2 GI/Abdominal exam: PRESENT: soft Neurological exam: PRESENT: alert Results Laboratory Results: 10/30/20 05:49 10/30/20 05:49 10/30/20 10/30/20 05:49 05:49 WBC 11.4 H RBC 4.33 L Hgb 10.9 L Hct 34.1 L MCV 79 L MCH 25.2 L MCHC 32.0 RDW 14.9 H Plt Count 182 Sodium 140.0 Potassium 4.2 Chloride 107 Carbon Dioxide 25 Anion Gap 8 BUN 71 H Creatinine 1.33 H Est GFR ( Amer) > 60 Glucose 108 Calcium 8.4 Total Bilirubin 1.0 AST 33 Alkaline Phosphatase 70 Total Protein 6.2 L Albumin 3.0 L 10/30/20 05:49 NT-Pro-B Natriuret Pep 270 H Impressions: Chest/Abdomen CTA 10/12/20 00:00 IMPRESSION: Since the CT from 10/03/2020 the patient has developed new diffuse alveolar ground-glass opacities and the patchy areas of dense consolidation in the lower lobes and to a lesser extent the right middle lobe and lingula have improved. There is no pulmonary embolus. Chest X-Ray 10/19/20 00:00 IMPRESSION: Diffuse coarse bilateral interstitial opacities with more focal patchy left basilar opacities compatible with pneumonia and similar to prior. No significant effusion. Chest CT 10/28/20 00:00 IMPRESSION: 1. Grossly stable diffuse bilateral alveolar ground-glass opacities throughout both lungs with additional more focal patchy areas of consolidation within the bilateral lower lobes. No significant effusion. No pneumothorax. 2. Decreased mediastinal adenopathy. Assessment & Plan - Diagnosis (1) Acute hypoxemic respiratory failure Is this a current diagnosis for this admission?: Yes (2) COVID-19 Is this a current diagnosis for this admission?: Yes (3) Pneumonia, unspecified organism Is this a current diagnosis for this admission?: Yes (4) Thrombocytopenia, unspecified Is this a current diagnosis for this admission?: Yes (5) Herpes simplex Is this a current diagnosis for this admission?: Yes Plan: He has herpes simplex affecting the genital, the mouth, cannot rule out herpes simplex encephalitis. Patient not able to take medicine by mouth transitioned to IV acyclovir 10 mg/kg IV every 8 for 7 days - Time Time Spent with patient: 35 or more minutes Level of Care: IMCU Medications reviewed and adjusted accordingly: Yes Anticipated discharge: Home Anticipated DC Timeframe: within 72 hours
[2020-10-30] MEDS: AMLODIPINE BESYLATE 10 MG TABLET PO SCH (15:57)
[2020-10-30] MEDS: BENZONATATE 100 MG CAPSULE PO SCH ×2 (15:57→21:17)
[2020-10-30] MEDS: FLUTICASONE/UMECLIDIN/VILANTER 100-62.5-25 MCG/DOSE IH SCH (15:58)
[2020-10-30] MEDS: FENOFIBRATE NANOCRYSTALLIZED 145 MG TABLET PO SCH (15:58)
[2020-10-30] MEDS: TAMSULOSIN HCL 0.4 MG CAP.SR.24H PO SCH (17:29)
[2020-10-30] MEDS: ACYCLOVIR SODIUM 750 MG in NORMAL SALINE 250 ML IV SCH ×2 (17:31→21:17)
[2020-10-30] MEDS: DEXTROSE 5%-WATER 1000 ML 1,000 ML IV PRN (17:32)
[2020-10-30] MEDS: INSULIN GLARGINE,HUM.REC.ANLOG 1,000 UNIT/10 ML VIAL SUBCUT SCH (21:17)
[2020-10-30] MEDS: ATORVASTATIN CALCIUM 40 MG TABLET PO SCH (21:17)
[2020-10-31] MEDS: PANTOPRAZOLE SODIUM 40 MG TABLET.DR PO SCH (05:42)
[2020-10-31] MEDS: VALACYCLOVIR HCL 500 MG TABLET PO SCH ×2 (05:42→13:03)
[2020-10-31] MEDS: ACYCLOVIR SODIUM 750 MG in NORMAL SALINE 250 ML IV SCH ×3 (05:43→22:49)
[2020-10-31] MEDS: INSULIN LISPRO 100 UNIT/ML 3 ML VIAL SUBCUT SCH ×4 (10:36→22:49)
[2020-10-31] MEDS: METHYLPREDNISOLONE INJ 40 MG/1 ML SDV IV SCH (10:36)
[2020-10-31] MEDS: FENOFIBRATE NANOCRYSTALLIZED 145 MG TABLET PO SCH (10:37)
[2020-10-31] MEDS: BENZONATATE 100 MG CAPSULE PO SCH ×2 (10:39→22:48)
[2020-10-31] MEDS: DEXTROSE 5%-WATER 1000 ML 1,000 ML IV PRN (10:39)
[2020-10-31] MEDS: AMLODIPINE BESYLATE 10 MG TABLET PO SCH (10:39)
[2020-10-31] MEDS: ENOXAPARIN SODIUM INJ 40 MG/0.4 ML DISP.SYRIN SUBCUT SCH (10:39)
[2020-10-31] MEDS: FLUTICASONE/UMECLIDIN/VILANTER 100-62.5-25 MCG/DOSE IH SCH (10:55)
--- NOTE | 2020-10-31 17:07 | XCELERA REPORT ---
[address] [address] Transthoracic Echocardiogram Report Name: TAHIR FOURNIER Age: 64 yrs Gender: Male : 1955 Patient Status: Inpatient Patient Location: [address] [place], [place] [id number] Study Date: 10/28/2020 08:02 PM Height: 69 in Weight: 172 lb BSA: 1.9 m2 Procedure: A two-dimensional transthoracic echocardiogram with color flow and Doppler was performed. Study Quality: Poor. Reason For Study: SOB History: Shortness of breath. Ordering Physician: SUSHMA BAEZ Performed By: Suzanne Cardoza Interpretation Summary The left ventricle is normal in size. LV EF is 65% to 70% Left ventricular systolic function is normal. Doppler measurements suggest impaired left ventricular relaxation, which is associated with grade I/IV or mild diastolic dysfunction The left ventricular wall motion is normal. There is no thrombus. Canoot assess ASD,VSD,or PFO. The right ventricle is not well visualized secondary to technical limitations Right atrium not well visualized secondary to technical limitations The left atrial size is normal. There is no evidence of mitral valve prolapse. There is no vegetation seen on the mitral valve. There is no mitral valve stenosis. Probably erroneously high AV gradient.There is only mild .No AR. There is no tricuspid stenosis. There is a trace amount of tricuspid regurgitation Tricuspid regurgitation jet envelope not well defined to measure RV systolic pressure accurately. The pulmonic valve is not well visualized. The aortic root is not well visualized. The inferior vena cava appeared normal and decreased > 50% with respiration (RAP 5-10 mmHg) No pericardial effusion. MMode/2D Measurements & Calculations RVDd: 3.3 cm LVIDd: 5.3 cm FS: 41.7 % Ao root diam: 3.3 cm IVSd: 1.3 cm LVIDs: 3.1 cm EDV(Teich): 132.7 ml Ao root area: 8.5 cm2 LVPWd: 1.1 cm ESV(Teich): 36.9 ml LA dimension: 2.6 cm EF(Teich): 72.2 % LVOT diam: 2.0 cm LVOT area: 3.1 cm2 Doppler Measurements & Calculations MV E max geovanni: MV P1/2t max geovanni: Ao V2 max: LV V1 max P.3 cm/sec 67.9 cm/sec 296.2 cm/sec 5.7 mmHg MV A max geovanni: MV P1/2t: 84.5 msec Ao max PG: LV V1 mean P.3 cm/sec MVA(P1/2t): 2.6 cm2 35.1 mmHg 2.0 mmHg MV E/A: 0.71 MV dec slope: Ao V2 mean: LV V1 max: 135.0 cm/sec 119.9 cm/sec 235.3 cm/sec2 Ao mean PG: LV V1 mean: MV dec time: 0.25 sec 10.7 mmHg 62.4 cm/sec Ao V2 VTI: 38.0 cm LV V1 VTI: 19.5 cm ZEESHAN(I,D): 1.6 cm2 ZEESHAN(V,D): 1.3 cm2 SV(LVOT): 60.9 ml PA V2 max: PI end-d geovanni: MV P1/2t-pr_phl: 119.9 cm/sec 179.2 cm/sec 84.5 msec PA max P.8 mmHg Left Ventricle The left ventricle is normal in size. There is normal left ventricular wall thickness. LV EF is 65% to 70%. Left ventricular systolic function is normal. Doppler measurements suggest impaired left ventricular relaxation, which is associated with grade I/IV or mild diastolic dysfunction. The left ventricular wall motion is normal. There is no thrombus. Canoot assess ASD,VSD,or PFO. Right Ventricle The right ventricle is not well visualized secondary to technical limitations. Atria Right atrium not well visualized secondary to technical limitations. The left atrial size is normal. Mitral Valve There is no evidence of mitral valve prolapse. There is no vegetation seen on the mitral valve. There is no mitral valve stenosis. There is a trace amount of mitral regurgitation. Aortic Valve There is no aortic valvular vegetation. Probably erroneously high AV gradient.There is only mild .No AR. Tricuspid Valve There is no tricuspid stenosis. There is a trace amount of tricuspid regurgitation. Tricuspid regurgitation jet envelope not well defined to measure RV systolic pressure accurately. Pulmonic Valve The pulmonic valve is not well visualized. Great Vessels The aortic root is not well visualized. The inferior vena cava appeared normal and decreased > 50% with respiration (RAP 5-10 mmHg). The inferior vena cava was not well visualized. Effusions No pericardial effusion. : SUSHMA BAEZ, Sushma
[2020-10-31] MEDS: TAMSULOSIN HCL 0.4 MG CAP.SR.24H PO SCH (18:11)
[2020-10-31] MEDS ORDERED: HYDROCODONE/ACETAMINOPHEN 5-325 MG TABLET PO PRN (19:52)
--- NOTE | 2020-10-31 21:34 | PDOC PROGRESS REPORT ---
Subjective Date:: 10/31/20 Subjective:: Patient condition remains precarious trying to speak but cannot express himself, he continues to require high flow oxygen, intake is very poor, may consider tube feed Reason For Visit: LEFT LOWER LOBE PNEUMONIA;EXACERBATED COPD,PUI FOR Physical Exam Vital Signs: Temp Pulse Resp BP Pulse Ox 98.7 F 94 25 H 139/66 H 95 10/31/20 16:50 10/31/20 16:50 10/31/20 16:50 10/31/20 16:50 10/31/20 16:50 Pulse Oximeter Continuous Start: 10/03/20 08:46 Freq: RTQ4 Status: Complete Protocol: Document 10/10/20 03:49 CMI (Rec: 10/10/20 04:06 CMI [id number]) Pulse Oximetry Assessment Oxygen Saturation (92-100) 97 Oxygen Delivery Method CPAP Fraction of Inspired Oxygen (FIO2) 100 Equipment Usage Equipment Standby Continuous SpO2 Machine # on nurse monitor Intake & Output 10/30/20 10/31/20 11/01/20 06:59 06:59 06:59 Intake Total 378 493 0642 Output Total 375 890 700 Balance 345 -360 830 Weight 76.1 kg 78 kg General appearance: PRESENT: no acute distress Eye exam: PRESENT: PERRLA Respiratory exam: PRESENT: clear to auscultation raya Cardiovascular exam: PRESENT: +S1, +S2 GI/Abdominal exam: PRESENT: soft Neurological exam: PRESENT: alert Results Laboratory Results: 10/30/20 05:49 10/30/20 05:49 10/30/20 05:49 NT-Pro-B Natriuret Pep 270 H Impressions: Chest/Abdomen CTA 10/12/20 00:00 IMPRESSION: Since the CT from 10/03/2020 the patient has developed new diffuse alveolar ground-glass opacities and the patchy areas of dense consolidation in the lower lobes and to a lesser extent the right middle lobe and lingula have improved. There is no pulmonary embolus. Chest X-Ray 10/19/20 00:00 IMPRESSION: Diffuse coarse bilateral interstitial opacities with more focal patchy left basilar opacities compatible with pneumonia and similar to prior. No significant effusion. Chest CT 10/28/20 00:00 IMPRESSION: 1. Grossly stable diffuse bilateral alveolar ground-glass opacities throughout both lungs with additional more focal patchy areas of consolidation within the bilateral lower lobes. No significant effusion. No pneumothorax. 2. Decreased mediastinal adenopathy. Assessment & Plan - Diagnosis (1) Acute hypoxemic respiratory failure Is this a current diagnosis for this admission?: Yes Plan: Patient on high flow oxygen continue treatment (2) COVID-19 Is this a current diagnosis for this admission?: Yes (3) Pneumonia, unspecified organism Is this a current diagnosis for this admission?: Yes (4) Thrombocytopenia, unspecified Is this a current diagnosis for this admission?: Yes (5) Herpes simplex Is this a current diagnosis for this admission?: Yes Plan: He has herpes simplex affecting the genital, the mouth, cannot rule out herpes simplex encephalitis. Patient not able to take medicine by mouth transitioned to IV acyclovir 10 mg/kg IV every 8 for 7 days - Time Time Spent with patient: 25-34 minutes Level of Care: IMCU Medications reviewed and adjusted accordingly: Yes Anticipated discharge: Other Anticipated DC Timeframe: Other
[2020-10-31] MEDS: INSULIN GLARGINE,HUM.REC.ANLOG 1,000 UNIT/10 ML VIAL SUBCUT SCH (22:48)
[2020-10-31] MEDS: ATORVASTATIN CALCIUM 40 MG TABLET PO SCH (22:49)
[2020-11-01] MEDS: ACYCLOVIR SODIUM 750 MG in NORMAL SALINE 250 ML IV SCH ×3 (06:28→22:20)
[2020-11-01] MEDS: DEXTROSE 5%-WATER 1000 ML 1,000 ML IV PRN (06:39)
[2020-11-01] MEDS: INSULIN LISPRO 100 UNIT/ML 3 ML VIAL SUBCUT SCH ×4 (10:04→23:00)
[2020-11-01] MEDS: METHYLPREDNISOLONE INJ 40 MG/1 ML SDV IV SCH (10:07)
[2020-11-01] MEDS: AMLODIPINE BESYLATE 10 MG TABLET PO SCH ×2 (10:07→10:17)
[2020-11-01] MEDS: BENZONATATE 100 MG CAPSULE PO SCH ×3 (10:07→22:20)
[2020-11-01] MEDS: ENOXAPARIN SODIUM INJ 40 MG/0.4 ML DISP.SYRIN SUBCUT SCH (10:07)
[2020-11-01] MEDS: FENOFIBRATE NANOCRYSTALLIZED 145 MG TABLET PO SCH ×2 (10:07→10:17)
[2020-11-01] MEDS: FLUTICASONE/UMECLIDIN/VILANTER 100-62.5-25 MCG/DOSE IH SCH (10:08)
[2020-11-01] MEDS: TAMSULOSIN HCL 0.4 MG CAP.SR.24H PO SCH (17:00)
--- NOTE | 2020-11-01 20:53 | PDOC PROGRESS REPORT ---
Subjective Date:: 11/01/20 Subjective:: I tried to reach patient spouse, no response, patient's condition remained the s adrianna, continues to require high flow oxygen, minimal intake? NG tube Reason For Visit: LEFT LOWER LOBE PNEUMONIA;EXACERBATED COPD,PUI FOR Physical Exam Vital Signs: Temp Pulse Resp BP Pulse Ox 97.8 F 87 24 H 153/78 H 97 11/01/20 15:51 11/01/20 15:51 11/01/20 16:00 11/01/20 15:51 11/01/20 16:00 Pulse Oximeter Continuous Start: 10/03/20 08:46 Freq: RTQ4 Status: Complete Protocol: Document 10/10/20 03:49 CMI (Rec: 10/10/20 04:06 CMI [id number]) Pulse Oximetry Assessment Oxygen Saturation (92-100) 97 Oxygen Delivery Method CPAP Fraction of Inspired Oxygen (FIO2) 100 Equipment Usage Equipment Standby Continuous SpO2 Machine # on nurse monitor Intake & Output 10/31/20 11/01/20 11/02/20 06:59 06:59 06:59 Intake Total 530 3325 910 Output Total 890 1225 Balance -360 2100 910 Weight 78 kg 77.6 kg 77.6 kg General appearance: PRESENT: mild distress Eye exam: PRESENT: PERRLA Respiratory exam: PRESENT: rhonchi Cardiovascular exam: PRESENT: +S1, +S2, systolic murmur GI/Abdominal exam: PRESENT: soft Neurological exam: PRESENT: alert Results Laboratory Results: 10/30/20 05:49 10/30/20 05:49 10/30/20 05:49 NT-Pro-B Natriuret Pep 270 H Impressions: Chest/Abdomen CTA 10/12/20 00:00 IMPRESSION: Since the CT from 10/03/2020 the patient has developed new diffuse alveolar ground-glass opacities and the patchy areas of dense consolidation in the lower lobes and to a lesser extent the right middle lobe and lingula have improved. There is no pulmonary embolus. Chest X-Ray 10/19/20 00:00 IMPRESSION: Diffuse coarse bilateral interstitial opacities with more focal patchy left basilar opacities compatible with pneumonia and similar to prior. No significant effusion. Chest CT 10/28/20 00:00 IMPRESSION: 1. Grossly stable diffuse bilateral alveolar ground-glass opacitie s throughout both lungs with additional more focal patchy areas of consolidation within the bilateral lower lobes. No significant effusion. No pneumothorax. 2. Decreased mediastinal adenopathy. Assessment & Plan - Diagnosis (1) Acute hypoxemic respiratory failure Is this a current diagnosis for this admission?: Yes Plan: Patient on high flow oxygen continue treatment (2) COVID-19 Is this a current diagnosis for this admission?: Yes (3) Pneumonia, unspecified organism Is this a current diagnosis for this admission?: Yes (4) Thrombocytopenia, unspecified Is this a current diagnosis for this admission?: Yes (5) Herpes simplex Is this a current diagnosis for this admission?: Yes Plan: He has herpes simplex affecting the genital, the mouth, cannot rule out herpes simplex encephalitis. Patient not able to take medicine by mouth transitioned to IV acyclovir 10 mg/kg IV every 8 for 7 days - Time Time Spent with patient: 15-24 minutes Level of Care: MEDICAL Medications reviewed and adjusted accordingly: Yes Anticipated discharge: Home - Inpatient Certification Based on my medical assessment, after consideration of the patient's comorbidit ies, presenting symptoms, or acuity I expect that the services needed warrant INPATIENT care.: Yes I certify that my determination is in accordance with my understanding of Me jos's requirements for reasonable and necessary INPATIENT services [42 CFR 412.3e].: Yes
[2020-11-01] MEDS: INSULIN GLARGINE,HUM.REC.ANLOG 1,000 UNIT/10 ML VIAL SUBCUT SCH (23:00)
[2020-11-02] MEDS: DEXTROSE 5%-WATER 1000 ML 1,000 ML IV PRN (02:09)
[2020-11-02] MEDS: ACYCLOVIR SODIUM 750 MG in NORMAL SALINE 250 ML IV SCH ×3 (05:23→21:51)
[2020-11-02] MEDS: BENZONATATE 100 MG CAPSULE PO SCH (10:56)
[2020-11-02] MEDS: ENOXAPARIN SODIUM INJ 40 MG/0.4 ML DISP.SYRIN SUBCUT SCH (10:57)
[2020-11-02] MEDS: METHYLPREDNISOLONE INJ 40 MG/1 ML SDV IV SCH (10:57)
[2020-11-02] MEDS: INSULIN LISPRO 100 UNIT/ML 3 ML VIAL SUBCUT SCH ×2 (12:57→18:38)
[2020-11-02] MEDS ORDERED: IPRATROPIUM/ALBUTEROL 0.5-2.5 MG/3 ML AMPUL NEB ONE (15:51)
--- NOTE | 2020-11-02 15:51 | RADIOLOGY REPORT (SQ) ---
EXAM DESCRIPTION: CT HEAD WITHOUT IMAGES COMPLETED DATE/TIME: 11/02/2020 3:38 pm REASON FOR STUDY: AMS COMPARISON: 09/16/2020 TECHNIQUE: Axial images acquired through the brain without intravenous contrast. Images reviewed wi th bone, brain and subdural windows. Additional sagittal and coronal reconstructions were generated. Images stored on PACS. All CT scanners at this facility use dose modulation, iterative reconstruction, and/or weight based d osing when appropriate to reduce radiation dose to as low as reasonably achievable (ALARA). [facility]: Dose Right [facility]: CareDose [facility]: Dose Right [facility]: Teradose 4D [facility]: [employer] RADIATION DOSE: CT Rad equipment meets quality standard of care and radiation dose reduction techniq ues were employed. CTDIvol: 21.7 mGy. DLP: 468 mGy-cm.mGy. LIMITATIONS: None. FINDINGS: VENTRICLES: Prominent. CEREBRUM: Evolving left posterior cerebral artery infarct involving the occipital lobe and posterior parietal lobe. Atrophy with a large the ventricles and cortical sulci. Scattered subcortical and pe riventricular white matter changes. CEREBELLUM: No masses. No hemorrhage. No alteration of density. No evidence for acute infarction. EXTRAAXIAL SPACES: Age-related involutional change. No fluid collections. No masses. ORBITS AND GLOBE: No intra- or extraconal masses. Normal contour of globe without masses. CALVARIUM: No fracture. PARANASAL SINUSES: No fluid or mucosal thickening. SOFT TISSUES: No mass or hematoma. OTHER: No other significant finding. 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 No hemorrhage. Underlying chronic small vessel ischemic changes. EVIDENCE OF ACUTE STROKE: YES. COMMENT: This report was called to Leslie, the patient's nurse, at15:42 on 11/02/2020. TECHNICAL DOCUMENTATION: JOB ID: [id number] Quality ID # 436: Final reports with documentation of one or more dose reduction techniques (e.g., Au tomated exposure control, adjustment of the mA and/or kV according to patient size, use of iterative reconstruction technique) 2010 [employer]- All Rights Reserved Reading location - IP/workstation name: [email or web address]
[2020-11-02] MEDS ORDERED: FUROSEMIDE INJ/PF 40 MG/4 ML SDV ONE (15:52)
[2020-11-02] MEDS ORDERED: METHYLPREDNISOLONE INJ 125 MG/2 ML SDV ONE (15:55)
[2020-11-02 17:14] LABS: APPEARANCE,URINE SLIGHTLY-CLOUDY; BILIRUBIN,URINE NEGATIVE (NEGATIVE); COLOR,URINE YELLOW; GLUCOSE, URINE NEGATIVE (NEGATIVE); KETONES,URINE NEGATIVE (NEGATIVE); LEUKOCYTE ESTERASE,URINE TRACE (NEGATIVE); NITRITE,URINE NEGATIVE (NEGATIVE); PROTEIN,URINE NEGATIVE (NEGATIVE); URINE SPECIFIC GRAVITY 1.006; UROBILINOGEN,URINE NEGATIVE mg/dL (<2.0)
[2020-11-02 17:20] LABS: ARTERIAL BLOOD BASE EXCESS 0.5 mmol/L; ARTERIAL BLOOD HCO3 26.6 mmol/L (20-24); ARTERIAL BLOOD O2 SATURATION 87.9 % (94-98); ARTERIAL BLOOD PCO2 49.8 mmHg (35-45); ARTERIAL BLOOD PH 7.35 (7.35-7.45); ARTERIAL BLOOD PO2 57.1 mmHg (80-100); ARTERIAL BLOOD TOTAL CO2 28.2 mmol/L (23-27)
[2020-11-02 17:22] LABS: ARTERIAL BLOOD FIO2 100%
--- NOTE | 2020-11-02 17:39 | PDOC PROGRESS REPORT ---
Subjective Date:: 11/02/20 Subjective:: Patient's condition continues to deteriorate, he had acute stroke today, CT head without contrast demonstrated evolving left posterior cerebral artery infarct involving the occipital lobe and posterior left parietal lobe. Atrophy with a large ventricle and cortical sulcal. There is no hemorrhage or masses. The PCR test for herpes simplex was positive this was taken from the groin, presently on intravenous acyclovir. He has what looks like disseminated herpes simplex. He has been n.p.o. because he is unable to swallow we will insert a feeding tube to initiate nutrition. The was notified by the RN of these new findings and changes Reason For Visit: LEFT LOWER LOBE PNEUMONIA;EXACERBATED COPD,PUI FOR Physical Exam Vital Signs: Temp Pulse Resp BP Pulse Ox 97.9 F 92 30 H 155/72 H 80 L 11/02/20 12:27 11/02/20 16:05 11/02/20 16:05 11/02/20 12:27 11/02/20 16:05 Pulse Oximeter Continuous Start: 10/03/20 08:46 Freq: RTQ4 Status: Complete Protocol: Document 10/10/20 03:49 CMI (Rec: 10/10/20 04:06 CMI [id number]) Pulse Oximetry Assessment Oxygen Saturation (92-100) 97 Oxygen Delivery Method CPAP Fraction of Inspired Oxygen (FIO2) 100 Equipment Usage Equipment Standby Continuous SpO2 Machine # on nurse monitor Intake & Output 11/01/20 11/02/20 11/03/20 06:59 06:59 06:59 Intake Total 3325 2440 265 Output Total 1225 600 Balance 2100 1840 265 Weight 77.6 kg 75.7 kg General appearance: PRESENT: other - Patient acutely ill looking Eye exam: PRESENT: PERRLA Respiratory exam: PRESENT: rhonchi Cardiovascular exam: PRESENT: +S1, +S2 GI/Abdominal exam: PRESENT: soft Neurological exam: PRESENT: alert Results Laboratory Results: 10/30/20 05:49 10/30/20 05:49 11/02/20 11/02/20 16:50 16:50 Carbonic Acid 1.50 H HCO3/H2CO3 Ratio 17:1 ABG pH 7.35 ABG pCO2 49.8 H ABG pO2 57.1 L ABG HCO3 26.6 H ABG O2 Saturation 87.9 L ABG Base Excess 0.5 FiO2 100% Urine Color YELLOW Urine Appearance SLIGHTLY-CLOUDY Urine pH 5.0 Ur Specific [place] 1.006 Urine Protein NEGATIVE Urine Glucose (UA) NEGATIVE Urine Ketones NEGATIVE Urine Blood NEGATIVE Urine Nitrite NEGATIVE Ur Leukocyte Esterase TRACE H Urine WBC (Auto) 3 10/30/20 05:49 NT-Pro-B Natriuret Pep 270 H Impressions: Chest/Abdomen CTA 10/12/20 00:00 IMPRESSION: Since the CT from 10/03/2020 the patient has developed new diffuse alveolar ground-glass opacities and the patchy areas of dense consolidation in the lower lobes and to a lesser extent the right middle lobe and lingula have improved. There is no pulmonary embolus. Chest X-Ray 10/19/20 00:00 IMPRESSION: Diffuse coarse bilateral interstitial opacities with more focal patchy left basilar opacities compatible with pneumonia and similar to prior. No significant effusion. Chest CT 10/28/20 00:00 IMPRESSION: 1. Grossly stable diffuse bilateral alveolar ground-glass opacities throughout both lungs with additional more focal patchy areas of consolidation within the bilateral lower lobes. No significant effusion. No pneumothorax. 2. Decreased mediastinal adenopathy. Head CT 11/02/20 00:00 IMPRESSION: Involving acute left posterior cerebral artery infarct involving the posterior parietal and occipital lobe. No hemorrhage. Underlying chronic small vessel ischemic changes. EVIDENCE OF ACUTE STROKE: YES. Assessment & Plan - Diagnosis (1) Acute hypoxemic respiratory failure Is this a current diagnosis for this admission?: Yes Plan: Patient presently on NIPPV (2) COVID-19 Is this a current diagnosis for this admission?: Yes (3) Pneumonia, unspecified organism Is this a current diagnosis for this admission?: Yes (4) Thrombocytopenia, unspecified Is this a current diagnosis for this admission?: Yes (5) Herpes simplex Is this a current diagnosis for this admission?: Yes Plan: He has herpes simplex affecting the genital, the mouth, cannot rule out herpes simplex encephalitis. 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
[2020-11-02] MEDS: TAMSULOSIN HCL 0.4 MG CAP.SR.24H PO SCH (18:17)
--- NOTE | 2020-11-02 18:52 | RADIOLOGY REPORT (SQ) ---
EXAM DESCRIPTION: CAROTID DOPPLER IMAGES COMPLETED DATE/TIME: 11/02/2020 6:39 pm REASON FOR STUDY: cva COMPARISON: 12/25/2019 TECHNIQUE: Grayscale ultrasound, Doppler velocity and spectra, and color Doppler images acquired of the extra-cranial carotid and vertebral arteries. Images stored on PACS. LIMITATIONS: None. FINDINGS: RIGHT CAROTID CCA Velocities: Within normal limits. ICA Velocities Peak systolic 103 cm/s. End diastolic 34 cm/s. Proximal ICA/CCA peak systolic ratio 1.3. Intimal thickening. LEFT CAROTID CCA Velocities: Within normal limits. ICA Velocities Peak systolic 62 cm/s. End diastolic 28 cm/s. Proximal ICA/CCA peak systolic ratio 0.9. Intimal thickening. VERTEBRAL ARTERIES: Antegrade flow. Normal waveforms. SUBCLAVIAN ARTERIES: No finding. OTHER: No other significant finding. IMPRESSION: NO HEMODYNAMICALLY SIGNIFICANT STENOSIS. COMMENT: Quality ID #[id number]: Velocity criteria are extrapolated from the diameter data as defined by t he Society of Radiologists in Ultrasound Consensus Conference. Radiology 2003: 229; 340-346. TECHNICAL DOCUMENTATION: JOB ID: [id number] [employer] [place]- All Rights Reserved Reading location - IP/workstation name: [email or web address]
--- NOTE | 2020-11-02 18:53 | Progress Note ---
Provider Note Provider Note: SOCIAL SCIENCES PROFESSOR was called by YULIA riggs due to desaturation <85% after CT head. Patient was seen and examined at bedside noted to be saturating 85% on Bipap 100% FIO2. Patient is awake, follows simple command but tachypneic. BP 140s/70s. I ordered 1 dose of lasix 40 mg IV, duoneb adn 125 mg solumedrol. O2 sat improved to 89%. Attending Physician was updated by RN. Patient stayed in the room.
[2020-11-02] MEDS: ASPIRIN 81 MG TABLET, ENT COATED PO SCH (19:00)
[2020-11-02 19:09] LABS: ALBUMIN 2.9 g/dL (3.5-5.0); ALKALINE PHOSPHATASE 80 U/L (38-126); ASPARTATE AMINO TRANSFERASE 45 U/L (17-59); BILIRUBIN,DIRECT 0.5 mg/dL (0.0-0.4); BILIRUBIN,TOTAL 1.3 mg/dL (0.2-1.3); BLOOD UREA NITROGEN 22 mg/dL (7-20); CALCIUM 8.6 mg/dL (8.4-10.2); CREATINE KINASE 57 U/L (55-170); GLUCOSE 164 mg/dL (75-110); POTASSIUM 4.4 mmol/L (3.6-5.0)
[2020-11-02 19:14] LABS: ANION GAP 5 (5-19); CARBON DIOXIDE 27 mmol/L (22-30); CHLORIDE 109 mmol/L (98-107)
[2020-11-02 19:21] LABS: CREATINE KINASE MB 1.82 ng/mL (<4.55); TROPONIN I 0.055 ng/mL
[2020-11-02] MEDS: ATORVASTATIN CALCIUM 80 MG TABLET PO SCH (21:50)
[2020-11-02] MEDS: INSULIN GLARGINE,HUM.REC.ANLOG 1,000 UNIT/10 ML VIAL SUBCUT SCH (21:50)
[2020-11-02 23:10] LABS: ABSOLUTE MONOCYTES (AUTO) 0.1 10^3/uL (0.1-1.4); ABSOLUTE NEUT (AUTO) 8.4 10^3/uL (1.7-8.2); BASOPHILS % (AUTO) 0.4 % (0-2); HEMATOCRIT 28.3 % (37.9-51.0); HEMOGLOBIN 9.4 g/dL (13.5-17.0); LYMPHOCYTES % (AUTO) 10.4 % (13-45); MEAN CORPUSCULAR HEMOGLOBIN 26.3 pg (27.0-33.4); MEAN CORPUSCULAR HGB CONC 33.4 g/dL (32.0-36.0); MEAN CORPUSCULAR VOLUME 79 fl (80-97); MONOCYTES % (AUTO) 1.3 % (3-13); PLATELET COUNT 156 10^3/uL (150-450); RED BLOOD COUNT 3.59 10^6/uL (4.35-5.55); RED CELL DISTRIBUTION WIDTH 15.2 % (11.5-14.0); SEGMENTED NEUTROPHILS % (AUTO) 87.9 % (42-78); TOTAL CELLS COUNTED % (AUTO) 100 %; WHITE BLOOD COUNT 9.6 10^3/uL (4.0-10.5)
[2020-11-03] MEDS: INSULIN LISPRO 100 UNIT/ML 3 ML VIAL SUBCUT SCH ×5 (01:05→23:31)
[2020-11-03] MEDS: DEXTROSE 5%-WATER 1000 ML 1,000 ML IV PRN (03:43)
[2020-11-03 05:44] LABS: CHOLESTEROL 109.01 mg/dL (0-200); TRIGLYCERIDES 165 mg/dL (<150)
[2020-11-03 05:53] LABS: ALBUMIN 2.5 g/dL (3.5-5.0); ALKALINE PHOSPHATASE 76 U/L (38-126); ANION GAP 6 (5-19); ASPARTATE AMINO TRANSFERASE 30 U/L (17-59); BILIRUBIN,DIRECT 0.2 mg/dL (0.0-0.4); BILIRUBIN,TOTAL 0.9 mg/dL (0.2-1.3); BLOOD UREA NITROGEN 25 mg/dL (7-20); CALCIUM 8.6 mg/dL (8.4-10.2); CARBON DIOXIDE 28 mmol/L (22-30); CHLORIDE 109 mmol/L (98-107); GLUCOSE 196 mg/dL (75-110); POTASSIUM 3.8 mmol/L (3.6-5.0); TOTAL PROTEIN 5.5 g/dL (6.3-8.2)
[2020-11-03 05:55] LABS: DIRECT LDL 39 mg/dL (<100)
[2020-11-03] MEDS: ACYCLOVIR SODIUM 750 MG in NORMAL SALINE 250 ML IV SCH ×3 (06:43→22:27)
[2020-11-03] MEDS: CLOPIDOGREL BISULFATE 75 MG TABLET PO SCH (13:04)
[2020-11-03] MEDS: ASPIRIN 81 MG TABLET, ENT COATED PO SCH (13:04)
[2020-11-03] MEDS: ENOXAPARIN SODIUM INJ 40 MG/0.4 ML DISP.SYRIN SUBCUT SCH (13:08)
[2020-11-03] MEDS: METHYLPREDNISOLONE INJ 40 MG/1 ML SDV IV SCH (13:09)
[2020-11-03] MEDS ORDERED: IPRATROPIUM/ALBUTEROL 0.5-2.5 MG/3 ML AMPUL NEB ONE (14:14)
[2020-11-03] MEDS ORDERED: FUROSEMIDE INJ/PF 40 MG/4 ML SDV ONE (14:18)
[2020-11-03 14:44] LABS: ARTERIAL BLOOD BASE EXCESS -1.4 mmol/L; ARTERIAL BLOOD H2CO3 1.27 mmol/L (1.05-1.35); ARTERIAL BLOOD HCO3 23.8 mmol/L (20-24); ARTERIAL BLOOD O2 SATURATION 91.8 % (94-98); ARTERIAL BLOOD PCO2 42.2 mmHg (35-45); ARTERIAL BLOOD PH 7.37 (7.35-7.45); ARTERIAL BLOOD PO2 63.8 mmHg (80-100); ARTERIAL BLOOD TOTAL CO2 25.1 mmol/L (23-27)
[2020-11-03] MEDS ORDERED: FUROSEMIDE INJ/PF 40 MG/4 ML SDV IV ONE (14:45)
[2020-11-03 14:46] LABS: ARTERIAL BLOOD FIO2 100%
--- NOTE | 2020-11-03 14:56 | PDOC PROGRESS REPORT ---
Subjective Date:: 11/03/20 Subjective:: I had a long discussion with patient's spouse about his condition, he continues to require noninvasive positive pressure ventilation, BiPAP.He recently had a stroke, difficult to get a feeding tube in place, because that will create air leak around the face mask.Patient's condition is very poor Reason For Visit: LEFT LOWER LOBE PNEUMONIA;EXACERBATED COPD,PUI FOR Physical Exam Vital Signs: Temp Pulse Resp BP Pulse Ox 97.7 F 99 34 H 150/72 H 96 11/03/20 08:11 11/03/20 08:11 11/03/20 11:53 11/03/20 08:11 11/03/20 11:53 Pulse Oximeter Continuous Start: 10/03/20 08:46 Freq: RTQ4 Status: Complete Protocol: Document 10/10/20 03:49 CMI (Rec: 10/10/20 04:06 CMI [id number]) Pulse Oximetry Assessment Oxygen Saturation (92-100) 97 Oxygen Delivery Method CPAP Fraction of Inspired Oxygen (FIO2) 100 Equipment Usage Equipment Standby Continuous SpO2 Machine # on nurse monitor Intake & Output 11/02/20 11/03/20 11/04/20 06:59 06:59 06:59 Intake Total 2440 1530 265 Output Total 600 1175 Balance 1840 355 265 Weight 75.7 kg 79.8 kg 79.8 kg General appearance: PRESENT: other - Patient continues to require NIPPV Respiratory exam: PRESENT: accessory muscle use, rhonchi Cardiovascular exam: PRESENT: +S1, +S2 GI/Abdominal exam: PRESENT: soft Neurological exam: PRESENT: alert Results Laboratory Results: 11/02/20 23:03 11/03/20 04:38 11/02/20 11/02/20 11/02/20 16:50 16:50 17:35 WBC RBC Hgb Hct MCV MCH MCHC RDW Plt Count Seg Neutrophils % Carbonic Acid 1.50 H HCO3/H2CO3 Ratio 17:1 ABG pH 7.35 ABG pCO2 49.8 H ABG pO2 57.1 L ABG HCO3 26.6 H ABG O2 Saturation 87.9 L ABG Base Excess 0.5 FiO2 100% Sodium 140.9 Potassium 4.4 Chloride 109 H Carbon Dioxide 27 Anion Gap 5 BUN 22 H Creatinine 0.53 Est GFR ( Amer) > 60 Glucose 164 H Calcium 8.6 Total Bilirubin 1.3 AST 45 Alkaline Phosphatase 80 Total Protein 6.0 L Albumin 2.9 L Triglycerides Cholesterol LDL Cholesterol Direct VLDL Cholesterol HDL Cholesterol Urine Color YELLOW Urine Appearance SLIGHTLY-CLOUDY Urine pH 5.0 Ur Specific [place] 1.006 Urine Protein NEGATIVE Urine Glucose (UA) NEGATIVE Urine Ketones NEGATIVE Urine Blood NEGATIVE Urine Nitrite NEGATIVE Ur Leukocyte Esterase TRACE H Urine WBC (Auto) 3 11/02/20 11/03/20 11/03/20 23:03 04:38 04:38 WBC 9.6 RBC 3.59 L Hgb 9.4 L Hct 28.3 L MCV 79 L MCH 26.3 L MCHC 33.4 RDW 15.2 H Plt Count 156 Seg Neutrophils % 87.9 H Carbonic Acid HCO3/H2CO3 Ratio ABG pH ABG pCO2 ABG pO2 ABG HCO3 ABG O2 Saturation ABG Base Excess FiO2 Sodium 142.9 Potassium 3.8 Chloride 109 H Carbon Dioxide 28 Anion Gap 6 BUN 25 H Creatinine 0.68 Est GFR ( Amer) > 60 Glucose 196 H Calcium 8.6 Total Bilirubin 0.9 AST 30 Alkaline Phosphatase 76 Total Protein 5.5 L Albumin 2.5 L Triglycerides 165 H Cholesterol 109.01 LDL Cholesterol Direct 39 VLDL Cholesterol 33.0 H HDL Cholesterol 46 Urine Color Urine Appearance Urine pH Ur Specific [place] Urine Protein Urine Glucose (UA) Urine Ketones Urine Blood Urine Nitrite Ur Leukocyte Esterase Urine WBC (Auto) 10/30/20 11/02/20 11/02/20 05:49 17:35 17:35 Creatine Kinase 57 CK-MB (CK-2) 1.82 Troponin I 0.055 NT-Pro-B Natriuret Pep 270 H Impressions: Chest/Abdomen CTA 10/12/20 00:00 IMPRESSION: Since the CT from 10/03/2020 the patient has developed new diffuse alveolar ground-glass opacities and the patchy areas of dense consolidation in the lower lobes and to a lesser extent the right middle lobe and lingula have improved. There is no pulmonary embolus. Chest X-Ray 10/19/20 00:00 IMPRESSION: Diffuse coarse bilateral interstitial opacities with more focal patchy left basilar opacities compatible with pneumonia and similar to prior. No significant effusion. Chest CT 10/28/20 00:00 IMPRESSION: 1. Grossly stable diffuse bilateral alveolar ground-glass opaciti es throughout both lungs with additional more focal patchy areas of consolidation within the bilateral lower lobes. No significant effusion. No pneumothorax. 2. Decreased mediastinal adenopathy. Head CT 11/02/20 00:00 IMPRESSION: Involving acute left posterior cerebral artery infarct involving the posterior parietal and occipital lobe. No hemorrhage. Underlying chronic small vessel ischemic changes. EVIDENCE OF ACUTE STROKE: YES. Carotid Doppler Study 11/02/20 16:13 IMPRESSION: NO HEMODYNAMICALLY SIGNIFICANT STENOSIS. 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) stroke Is this a current diagnosis for this admission?: Yes Plan: Management according to stroke protocol.Patient cannot get MRI of the brain because it is very unstable from the standpoint of respiratory status - Time Time Spent with patient: 25-34 minutes Level of Care: IMCU Medications reviewed and adjusted accordingly: Yes - Inpatient Certification Based on my medical assessment, after consideration of the patient's comorbidities, presenting symptoms, or acuity I expect that the services needed warrant INPATIENT care.: Yes I certify that my determination is in accordance with my understanding of Medicare's requirements for reasonable and necessary INPATIENT services [42 CFR 412.3e].: Yes
[2020-11-03 15:13] LABS: HEMATOCRIT 30.5 % (37.9-51.0); HEMOGLOBIN 10.2 g/dL (13.5-17.0); MEAN CORPUSCULAR HEMOGLOBIN 25.7 pg (27.0-33.4); MEAN CORPUSCULAR HGB CONC 33.4 g/dL (32.0-36.0); MEAN CORPUSCULAR VOLUME 77 fl (80-97); PLATELET COUNT 184 10^3/uL (150-450); RED BLOOD COUNT 3.97 10^6/uL (4.35-5.55); RED CELL DISTRIBUTION WIDTH 15.4 % (11.5-14.0)
--- NOTE | 2020-11-03 15:24 | PDOC PROGRESS REPORT ---
Subjective Date:: 11/03/20 Subjective:: Responded to POLYSOMNOGRAPHY TECHNICIAN for room 304 that was called at 2:11 PM. When I arrived at the bedside the initial information was that the patient experienced an episode of desaturation despite his BiPAP (20/10, 100% FiO2, rate 8). With arrival at the bedside the patient did open his eyes slightly to verbal stimulus. His oxygen saturation despite the 100% FiO2 was in the 80s. An POLYSOMNOGRAPHY TECHNICIAN was called on the patient yesterday as well. Of note the patient did have a cerebrovascular accident in the left posterior circulation yesterday. Reason For Visit: LEFT LOWER LOBE PNEUMONIA;EXACERBATED COPD,PUI FOR Physical Exam Vital Signs: Temp Pulse Resp BP Pulse Ox 97.7 F 99 34 H 150/72 H 96 11/03/20 08:11 11/03/20 08:11 11/03/20 11:53 11/03/20 08:11 11/03/20 11:53 Pulse Oximeter Continuous Start: 10/03/20 08:46 Freq: RTQ4 Status: Complete Protocol: Document 10/10/20 03:49 CMI (Rec: 10/10/20 04:06 CMI [email or web address]) Pulse Oximetry Assessment Oxygen Saturation (92-100) 97 Oxygen Delivery Method CPAP Fraction of Inspired Oxygen (FIO2) 100 Equipment Usage Equipment Standby Continuous SpO2 Machine # on nurse monitor Intake & Output 11/02/20 11/03/20 11/04/20 06:59 06:59 06:59 Intake Total 2440 1530 265 Output Total 600 1175 Balance 1840 355 265 Weight 75.7 kg 79.8 kg 79.8 kg General appearance: PRESENT: severe distress, well-developed, other - BiPAP mask in place. ABSENT: cooperative - Unable to fully cooperate Head exam: PRESENT: atraumatic, normocephalic Ear exam: PRESENT: normal external ear exam. ABSENT: bleeding, drainage Respiratory exam: PRESENT: accessory muscle use - Paradoxical breathing with abdominal muscles, clear to auscultation raya - Anteriorly. But very difficult to auscultate due to the BiPAP machine, decreased breath sounds - Limited inspiratory phase, tachypnea, other. ABSENT: prolonged expiratory phas - Also with very limited inspiratory phase, rales, rhonchi, wheezes Cardiovascular exam: PRESENT: RRR, +S1, +S2. ABSENT: bradycardia, diastolic murmur, irregular rhythm, systolic murmur, tachycardia GI/Abdominal exam: PRESENT: hypoactive bowel sounds, soft. ABSENT: tenderness Rectal exam: PRESENT: deferred Gentrourinary exam: PRESENT: indwelling catheter Extremities exam: PRESENT: pedal edema, +1 edema - Left leg, +2 edema - Right leg, other - Edema left arm Musculoskeletal exam: PRESENT: other - Right foot exhibiting fine resting tremor. ABSENT: ambulatory, deformity, dislocation Neurological exam: PRESENT: awake, oriented to person - He did answer to his name but unable to further assess, motor sensory deficit - Right hemiplegia. ABSENT: alert Psychiatric exam: PRESENT: flat affect, other - Very sickly affect. ABSENT: agitated Results Laboratory Results: 11/02/20 11/02/20 11/02/20 16:50 16:50 17:35 WBC RBC Hgb Hct MCV MCH MCHC RDW Plt Count Seg Neutrophils % Carbonic Acid 1.50 H HCO3/H2CO3 Ratio 17:1 ABG pH 7.35 ABG pCO2 49.8 H ABG pO2 57.1 L ABG HCO3 26.6 H ABG O2 Saturation 87.9 L ABG Base Excess 0.5 FiO2 100% Sodium 140.9 Potassium 4.4 Chloride 109 H Carbon Dioxide 27 Anion Gap 5 BUN 22 H Creatinine 0.53 Est GFR ( Amer) > 60 Glucose 164 H Calcium 8.6 Total Bilirubin 1.3 AST 45 Alkaline Phosphatase 80 Total Protein 6.0 L Albumin 2.9 L Triglycerides Cholesterol LDL Cholesterol Direct VLDL Cholesterol HDL Cholesterol Urine Color YELLOW Urine Appearance SLIGHTLY-CLOUDY Urine pH 5.0 Ur Specific [place] 1.006 Urine Protein NEGATIVE Urine Glucose (UA) NEGATIVE Urine Ketones NEGATIVE Urine Blood NEGATIVE Urine Nitrite NEGATIVE Ur Leukocyte Esterase TRACE H Urine WBC (Auto) 3 11/02/20 11/03/20 11/03/20 23:03 04:38 04:38 WBC 9.6 RBC 3.59 L Hgb 9.4 L Hct 28.3 L MCV 79 L MCH 26.3 L MCHC 33.4 RDW 15.2 H Plt Count 156 Seg Neutrophils % 87.9 H Carbonic Acid HCO3/H2CO3 Ratio ABG pH ABG pCO2 ABG pO2 ABG HCO3 ABG O2 Saturation ABG Base Excess FiO2 Sodium 142.9 Potassium 3.8 Chloride 109 H Carbon Dioxide 28 Anion Gap 6 BUN 25 H Creatinine 0.68 Est GFR ( Amer) > 60 Glucose 196 H Calcium 8.6 Total Bilirubin 0.9 AST 30 Alkaline Phosphatase 76 Total Protein 5.5 L Albumin 2.5 L Triglycerides 165 H Cholesterol 109.01 LDL Cholesterol Direct 39 VLDL Cholesterol 33.0 H HDL Cholesterol 46 Urine Color Urine Appearance Urine pH Ur Specific [place] Urine Protein Urine Glucose (UA) Urine Ketones Urine Blood Urine Nitrite Ur Leukocyte Esterase Urine WBC (Auto) 11/03/20 14:21 WBC RBC Hgb Hct MCV MCH MCHC RDW Plt Count Seg Neutrophils % Carbonic Acid 1.27 HCO3/H2CO3 Ratio 18:1 ABG pH 7.37 ABG pCO2 42.2 ABG pO2 63.8 L ABG HCO3 23.8 ABG O2 Saturation 91.8 L ABG Base Excess -1.4 FiO2 100% Sodium Potassium Chloride Carbon Dioxide Anion Gap BUN Creatinine Est GFR ( Amer) Glucose Calcium Total Bilirubin AST Alkaline Phosphatase Total Protein Albumin Triglycerides Cholesterol LDL Cholesterol Direct VLDL Cholesterol HDL Cholesterol Urine Color Urine Appearance Urine pH Ur Specific [place] Urine Protein Urine Glucose (UA) Urine Ketones Urine Blood Urine Nitrite Ur Leukocyte Esterase Urine WBC (Auto) 10/30/20 11/02/20 11/02/20 05:49 17:35 17:35 Creatine Kinase 57 CK-MB (CK-2) 1.82 Troponin I 0.055 NT-Pro-B Natriuret Pep 270 H Impressions: Chest/Abdomen CTA 10/12/20 00:00 IMPRESSION: Since the CT from 10/03/2020 the patient has developed new diffuse alveolar ground-glass opacities and the patchy areas of dense consolidation in the lower lobes and to a lesser extent the right middle lobe and lingula have improved. There is no pulmonary embolus. Chest X-Ray 10/19/20 00:00 IMPRESSION: Diffuse coarse bilateral interstitial opacities with more focal patchy left basilar opacities compatible with pneumonia and similar to prior. No significant effusion. Chest CT 10/28/20 00:00 IMPRESSION: 1. Grossly stable diffuse bilateral alveolar ground-glass opacities throughout both lungs with additional more focal patchy areas of consolidation within the bilateral lower lobes. No significant effusion. No pneumothorax. 2. Decreased mediastinal adenopathy. Head CT 11/02/20 00:00 IMPRESSION: Involving acute left posterior cerebral artery infarct involving the posterior parietal and occipital lobe. No hemorrhage. Underlying chronic small vessel ischemic changes. EVIDENCE OF ACUTE STROKE: YES. Carotid Doppler Study 11/02/20 16:13 IMPRESSION: NO HEMODYNAMICALLY SIGNIFICANT STENOSIS. 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 He had 1-2+ edema in his extremities. 2+ in the right leg 1+ in the left leg plus some edema in the arms. Administered 40 mg of IV Lasix. This was in fact helpful when it was given yesterday. In addition to nebulizer therapy was initiated and will be available on a scheduled basis moving forward. The evaluation included an ABG, laboratory studies and a chest x-ray. Serum sodium 145.7 Potassium 3.7 Chloride 109 Bicarb 30 BUN 27 Creatinine 0.71 Glucose 160 Lactic acid and transaminases were unremarkable. Brain natruretic peptide was not significantly elevated at 968. Blood gas on BiPAP 20/10 FiO2 100% revealed pH 7.37, PCO2 42.2, PO2 63.8 and bicarb 23.8 The most revealing finding was the chest x-ray which showed a moderate left pneumothorax. With this finding I changed the BiPAP to CPAP. The inspiratory pressure was 14 and we will continue with 100% FiO2 to see how the patient tolerates the settings. Lower the pressure specifically to try and avoid worsening of the pneumothorax. The patient has been on 100% FiO2 for many days. He suffered a large left posterior circulation stroke yesterday. He has right hemiparesis and likely impaired vision from the stroke. He now has a pneumothorax. I sat down with the patient's and reviewed all of the complications that he has been having and the fact that he is not getting better. She stated that despite all of that information and the fact that her will not recover to any meaningful quality of life she still wanted everything done. With that I did request a consult for surgery regarding possible chest tube placement. I know Dr. Nicole has been talking to the patient's regarding his grave prognosis and limited survivability. Even if the patient survives the Covid infection with complicating pneumothorax he still has to deal with a large stroke. I told the patient's that he struggles to try and take his mask off. He clearly is uncomfortable. He is working very hard to breathe. I specifically asked her how long does she want her to suffer. Unfortunately she is completely unrealistic in spoke of chest tube and even possible intubation. The nursing staff has been speaking to Dr. Nicole, who had seen the patient earlier today, and he has been in discussion with the patient's regarding change in CODE STATUS. Comfort measures would be most appropriate. As noted above she is refusing to change at this time. She did acknowledge that she would talk to her family. Dr. Castañeda did call to check on the patient. He at that point resumed care. I did review the episode with him. He also acknowledged that further education and discussion needs to be had with the and I believe he would be reaching out to her later tonight. - Time Total Critical Time (Minutes): 90 Medications reviewed and adjusted accordingly: Yes Anticipated Discharge Disposition: Unknown Anticipated Discharge Timeframe: Unknown
[2020-11-03 15:29] LABS: ANION GAP 7 (5-19)
[2020-11-03 15:32] LABS: ABSOLUTE LYMPHOCYTES# (MANUAL) 1.2 10^3/uL (0.5-4.7); ABSOLUTE MONOCYTES # (MANUAL) 0.2 10^3/uL (0.1-1.4); BASOPHILS % (MANUAL) 0 % (0-2); EOSINOPHILS % (MANUAL) 1 % (0-6); LYMPHOCYTES % (MANUAL) 11 % (13-45); MONOCYTES % (MANUAL) 2 % (3-13); SEGMENTED NEUTROPHILS % (MAN) 85 % (42-78); TOTAL CELLS COUNTED 100
[2020-11-03 15:34] LABS: POLYCHROMASIA SLIGHT
[2020-11-03 15:35] LABS: ALBUMIN 2.8 g/dL (3.5-5.0); ALKALINE PHOSPHATASE 85 U/L (38-126); ANISOCYTOSIS SLIGHT; ASPARTATE AMINO TRANSFERASE 32 U/L (17-59); BILIRUBIN,DIRECT 0.4 mg/dL (0.0-0.4); BLOOD UREA NITROGEN 27 mg/dL (7-20); CALCIUM 8.8 mg/dL (8.4-10.2); CARBON DIOXIDE 30 mmol/L (22-30); CHLORIDE 109 mmol/L (98-107); GLUCOSE 160 mg/dL (75-110); PLATELET COMMENT ADEQUATE; POIKILOCYTOSIS SLIGHT; POTASSIUM 3.7 mmol/L (3.6-5.0); TEAR DROP CELLS SLIGHT
--- NOTE | 2020-11-03 16:18 | RADIOLOGY REPORT (SQ) ---
EXAM DESCRIPTION: CHEST SINGLE VIEW IMAGES COMPLETED DATE/TIME: 11/03/2020 3:59 pm REASON FOR STUDY: Respiratory Distress COMPARISON: 10/19/2020 EXAM PARAMETERS: NUMBER OF VIEWS: One view. TECHNIQUE: Single frontal radiographic view of the chest acquired. RADIATION DOSE: NA LIMITATIONS: None. FINDINGS: LUNGS AND PLEURA: Moderate left sided pneumothorax. There is approximately 42.2 mm pleur al separation left apex-- left upper lung zone. No evidence of cardiomediastinal midline shift. Min imal right pleural effusion suggested. Diffuse bilateral interstitial and airspace disease. MEDIASTINUM AND HILAR STRUCTURES: No masses. Contour normal. HEART AND VASCULAR STRUCTURES: Heart normal in size. Normal vasculature. BONES: No acute findings. HARDWARE: None in the chest. OTHER: No other significant finding. IMPRESSION: 1. Moderate left-sided pneumothorax. This represents a new interval finding since the prior study dated 10/19/2020. 2. Diffuse bilateral interstitial and airspace disease. COMMENT: 1. The results of this examination were discussed with the patient's provider on 0 at 16:08 hours. TECHNICAL DOCUMENTATION: JOB ID: [id number] 2010 [employer]- All Rights Reserved Reading location - IP/workstation name: [email or web address]
[2020-11-03] MEDS: IPRATROPIUM/ALBUTEROL 0.5-2.5 MG/3 ML AMPUL NEB SCH ×2 (16:52→20:53)
[2020-11-03] MEDS: TAMSULOSIN HCL 0.4 MG CAP.SR.24H PO SCH (17:04)
[2020-11-03] MEDS: ATORVASTATIN CALCIUM 80 MG TABLET PO SCH (21:29)
[2020-11-03] MEDS: INSULIN GLARGINE,HUM.REC.ANLOG 1,000 UNIT/10 ML VIAL SUBCUT SCH (23:31)
[2020-11-04] MEDS: ACYCLOVIR SODIUM 750 MG in NORMAL SALINE 250 ML IV SCH ×3 (05:22→21:27)
[2020-11-04] MEDS: INSULIN LISPRO 100 UNIT/ML 3 ML VIAL SUBCUT SCH ×3 (05:23→18:30)
[2020-11-04] MEDS: IPRATROPIUM/ALBUTEROL 0.5-2.5 MG/3 ML AMPUL NEB SCH ×4 (07:56→20:11)
[2020-11-04] MEDS: CLOPIDOGREL BISULFATE 75 MG TABLET PO SCH (09:04)
[2020-11-04] MEDS: ASPIRIN 81 MG TABLET, ENT COATED PO SCH (09:04)
[2020-11-04] MEDS: ENOXAPARIN SODIUM INJ 40 MG/0.4 ML DISP.SYRIN SUBCUT SCH (09:13)
[2020-11-04] MEDS: METHYLPREDNISOLONE INJ 40 MG/1 ML SDV IV SCH (09:13)
[2020-11-04 09:21] LABS: ALBUMIN 2.6 g/dL (3.5-5.0); ALKALINE PHOSPHATASE 74 U/L (38-126); ANION GAP 6 (5-19); ASPARTATE AMINO TRANSFERASE 27 U/L (17-59); BILIRUBIN,DIRECT 0.4 mg/dL (0.0-0.4); BILIRUBIN,TOTAL 0.9 mg/dL (0.2-1.3); BLOOD UREA NITROGEN 37 mg/dL (7-20); CALCIUM 8.6 mg/dL (8.4-10.2); CARBON DIOXIDE 27 mmol/L (22-30); CHLORIDE 112 mmol/L (98-107); GLUCOSE 126 mg/dL (75-110); POTASSIUM 3.4 mmol/L (3.6-5.0); TOTAL PROTEIN 5.2 g/dL (6.3-8.2)
[2020-11-04] MEDS: DEXTROSE 5%-WATER 1000 ML 1,000 ML IV PRN (14:08)
[2020-11-04] MEDS: TAMSULOSIN HCL 0.4 MG CAP.SR.24H PO SCH (17:03)
--- NOTE | 2020-11-04 17:44 | PDOC PROGRESS REPORT ---
Subjective Date:: 11/04/20 Subjective:: Patient remain on NIPPV and supplemental oxygen. There is reported episode of left sided pneumothorax and stroke with right hemiparesis since my last encounter with the patient. His overall prognosis remain very poor. I had extensive discussion with his Viviane West regarding his poor prognosis and overall morbidities burden on the patient. Despite all educational intervention, she insisted on left chest tube placement for the patient. He remain a full code. I discussed issue of chest tube placement with Dr. Martinez, transportation refrigeration technician surgeon, for time to discuss such intervention with the . At the insistence. we will move forward with chest tube placement if his condition is safe enough to tolerate the procedure. Patient had FORKLIFT OPERATOR call twice in the last 48 hours. Reason For Visit: LEFT LOWER LOBE PNEUMONIA;EXACERBATED COPD,PUI FOR Physical Exam Vital Signs: Temp Pulse Resp BP Pulse Ox 97.4 F 81 32 H 120/67 91 L 11/04/20 15:46 11/04/20 15:46 11/04/20 15:46 11/04/20 15:46 11/04/20 15:46 Pulse Oximeter Continuous Start: 10/03/20 08:46 Freq: RTQ4 Status: Complete Protocol: Document 10/10/20 03:49 CMI (Rec: 10/10/20 04:06 CMI [id number]) Pulse Oximetry Assessment Oxygen Saturation (92-100) 97 Oxygen Delivery Method CPAP Fraction of Inspired Oxygen (FIO2) 100 Equipment Usage Equipment Standby Continuous SpO2 Machine # on nurse monitor Intake & Output 11/03/20 11/04/20 11/05/20 06:59 06:59 06:59 Intake Total 1761 202 9009 Output Total 1175 1150 Balance 355 -355 1359 Weight 79.8 kg 76.6 kg General appearance: PRESENT: severe distress - with accesory muscle usage on BiPAP support Head exam: PRESENT: atraumatic, normocephalic Eye exam: PRESENT: conjunctiva pink, PERRLA. ABSENT: scleral icterus Respiratory exam: PRESENT: clear to auscultation raya, decreased breath sounds - at lung bases Cardiovascular exam: PRESENT: RRR, +S1, +S2 Vascular exam: ABSENT: pallor GI/Abdominal exam: PRESENT: normal bowel sounds, soft Extremities exam: PRESENT: pedal edema Neurological exam: PRESENT: awake - but not contributing meaningfully to his care as per answering question. Skin exam: PRESENT: dry, warm Results Laboratory Results: 11/03/20 14:54 11/04/20 08:33 11/04/20 08:33 Sodium 145.3 H Potassium 3.4 L Chloride 112 H Carbon Dioxide 27 Anion Gap 6 BUN 37 H Creatinine 0.95 Est GFR ( Amer) > 60 Glucose 126 H Calcium 8.6 Total Bilirubin 0.9 AST 27 Alkaline Phosphatase 74 Total Protein 5.2 L Albumin 2.6 L 10/30/20 11/02/20 11/02/20 05:49 17:35 17:35 Creatine Kinase 57 CK-MB (CK-2) 1.82 Troponin I 0.055 NT-Pro-B Natriuret Pep 270 H 11/03/20 14:54 Creatine Kinase CK-MB (CK-2) Troponin I NT-Pro-B Natriuret Pep 968 H Impressions: Chest/Abdomen CTA 10/12/20 00:00 IMPRESSION: Since the CT from 10/03/2020 the patient has developed new diffuse alveolar ground-glass opacities and the patchy areas of dense consolidation in the lower lobes and to a lesser extent the right middle lobe and lingula have improved. There is no pulmonary embolus. Chest CT 10/28/20 00:00 IMPRESSION: 1. Grossly stable diffuse bilateral alveolar ground-glass opacities throughout both lungs with additional more focal patchy areas of consolidation within the bilateral lower lobes. No significant effusion. No pneumothorax. 2. Decreased mediastinal adenopathy. Head CT 11/02/20 00:00 IMPRESSION: Involving acute left posterior cerebral artery infarct involving the posterior parietal and occipital lobe. No hemorrhage. Underlying chronic small vessel ischemic changes. EVIDENCE OF ACUTE STROKE: YES. Carotid Doppler Study 11/02/20 16:13 IMPRESSION: NO HEMODYNAMICALLY SIGNIFICANT STENOSIS. Chest X-Ray 11/03/20 14:49 IMPRESSION: 1. Moderate left-sided pneumothorax. This represents a new interval finding since the prior study dated 10/19/2020. 2. Diffuse bilateral interstitial and airspace disease. Assessment & Plan - Diagnosis (1) COVID-19 Is this a current diagnosis for this admission?: Yes Plan: Continue current medication and supportive care (2) Acute ischemic left posterior cerebral artery (INSIDE METER TESTER) stroke Is this a current diagnosis for this admission?: Yes Plan: Continue current supportive care. (3) Hemiplegia affecting right dominant side Qualifiers: Hemiplegia type: flaccid Is this a current diagnosis for this admission?: Yes Plan: Continue current supportive care. (4) Pneumothorax on left Is this a current diagnosis for this admission?: Yes Plan: Continue current supportive care. Fol;low up with spouse for signed consent for chest tube placement. (5) Left lower lobe pneumonia Qualifiers: Pneumonia type: due to unspecified organism Qualified Code(s): J18.9 - Pneumonia, unspecified organism Is this a current diagnosis for this admission?: Yes (6) COPD (chronic obstructive pulmonary disease) Qualifiers: COPD type: chronic bronchitis Is this a current diagnosis for this admission?: Yes (7) Type 2 diabetes mellitus Qualifiers: Diabetes mellitus assisted insulin use: unspecified buttermilk drier operator insulin use status Diabetes mellitus complication status: without complication Qualified Code(s): E11.9 - Type 2 diabetes mellitus without complications Is this a current diagnosis for this admission?: Yes (8) Hypertension Qualifiers: Hypertension type: essential hypertension Qualified Code(s): I10 - Essential (primary) hypertension Is this a current diagnosis for this admission?: Yes (9) Coronary artery disease Qualifiers: Coronary Disease-Associated Artery/Lesion type: [place] artery Associated angina: without angina Is this a current diagnosis for this admission?: Yes (10) Hyperlipidemia Qualifiers: Hyperlipidemia type: unspecified Qualified Code(s): E78.5 - Hyperlipidemia, unspecified Is this a current diagnosis for this admission?: Yes (11) BPH loc w urin obs/LUTS Is this a current diagnosis for this admission?: Yes - Time Time Spent with patient: 25-34 minutes Level of Care: IMCU Medications reviewed and adjusted accordingly: Yes Anticipated discharge: SNF, Hospice Anticipated DC Timeframe: within 72 hours - Inpatient Certification Medical Necessity: Significant Comorbidiites Make Outpatient Treatment Too Risky, Need Close Monitoring Due to Risk of Patient Decompensation, Need For IV Fluids, Need For Continuous Telemetry Monitoring, Need for Surgery, Risk of Complication if Not Cared For in Hospital, Risk of Diagnosis Which Will Require Inpatient Eval/Care/Monitoring Post Hospital Care: D/C or Transfer Summary - Plan Summary Plan Summary: Continue current medication management. Overall prognosis remain very poor.
[2020-11-04] MEDS: ATORVASTATIN CALCIUM 80 MG TABLET PO SCH (21:27)
[2020-11-04] MEDS: INSULIN GLARGINE,HUM.REC.ANLOG 1,000 UNIT/10 ML VIAL SUBCUT SCH (22:30)
[2020-11-05] MEDS: INSULIN LISPRO 100 UNIT/ML 3 ML VIAL SUBCUT SCH ×4 (00:47→18:02)
[2020-11-05] MEDS: ACYCLOVIR SODIUM 750 MG in NORMAL SALINE 250 ML IV SCH ×3 (05:13→21:48)
[2020-11-05] MEDS: DEXTROSE 5%-WATER 1000 ML 1,000 ML IV PRN ×2 (06:44→21:03)
[2020-11-05] MEDS: IPRATROPIUM/ALBUTEROL 0.5-2.5 MG/3 ML AMPUL NEB SCH ×4 (08:50→20:20)
[2020-11-05] MEDS: CLOPIDOGREL BISULFATE 75 MG TABLET PO SCH (09:20)
[2020-11-05] MEDS: ASPIRIN 81 MG TABLET, ENT COATED PO SCH (09:20)
[2020-11-05] MEDS: ENOXAPARIN SODIUM INJ 40 MG/0.4 ML DISP.SYRIN SUBCUT SCH (09:27)
[2020-11-05] MEDS: METHYLPREDNISOLONE INJ 40 MG/1 ML SDV IV SCH (09:27)
[2020-11-05 12:29] LABS: ALBUMIN 2.4 g/dL (3.5-5.0); ALKALINE PHOSPHATASE 58 U/L (38-126); ANION GAP 7 (5-19); ASPARTATE AMINO TRANSFERASE 36 U/L (17-59); BILIRUBIN,DIRECT 0.5 mg/dL (0.0-0.4); BLOOD UREA NITROGEN 51 mg/dL (7-20); CARBON DIOXIDE 26 mmol/L (22-30); CHLORIDE 114 mmol/L (98-107); GLUCOSE 112 mg/dL (75-110); TOTAL PROTEIN 5.2 g/dL (6.3-8.2)
--- NOTE | 2020-11-05 12:57 | PDOC PROGRESS REPORT ---
Subjective Date:: 11/05/20 Reason For Visit: LEFT LOWER LOBE PNEUMONIA;EXACERBATED COPD,PUI FOR Physical Exam Vital Signs: Temp Pulse Resp BP Pulse Ox 97.3 F 88 30 H 104/64 95 11/05/20 12:43 11/05/20 12:43 11/05/20 12:43 11/05/20 12:43 11/05/20 12:43 Pulse Oximeter Continuous Start: 10/03/20 08:46 Freq: RTQ4 Status: Complete Protocol: Document 10/10/20 03:49 CMI (Rec: 10/10/20 04:06 CMI [id number]) Pulse Oximetry Assessment Oxygen Saturation (92-100) 97 Oxygen Delivery Method CPAP Fraction of Inspired Oxygen (FIO2) 100 Equipment Usage Equipment Standby Continuous SpO2 Machine # on nurse monitor Intake & Output 11/04/20 11/05/20 11/06/20 06:59 06:59 06:59 Intake Total 795 2510 Output Total 1150 400 Balance -355 2110 Weight 76.6 kg 75.4 kg 75.4 kg Physical Exam: General appearance: PRESENT: severe distress on CPAP support Head exam: PRESENT: atraumatic, normocephalic Eye exam: PRESENT: conjunctiva pink, PERRLA. ABSENT: pallor, scleral icterus Respiratory exam: PRESENT: clear to auscultation raya, decreased breath sounds - at lung bases Cardiovascular exam: PRESENT: RRR, +S1, +S2 GI/Abdominal exam: PRESENT: normal bowel sounds, soft Extremities exam: PRESENT: pedal edema Neurological exam: PRESENT: awake - but not contributing meaningfully to his care as per answering question. Skin exam: PRESENT: dry, warm Results Laboratory Results: 11/03/20 14:54 11/05/20 11:40 11/05/20 11:40 Sodium 147.1 H Potassium 5.0 Chloride 114 H Carbon Dioxide 26 Anion Gap 7 BUN 51 H Creatinine 1.63 H Est GFR ( Amer) 52 L Glucose 112 H Calcium 8.0 L Total Bilirubin 1.0 AST 36 Alkaline Phosphatase 58 Total Protein 5.2 L Albumin 2.4 L 10/30/20 11/02/20 11/02/20 05:49 17:35 17:35 Creatine Kinase 57 CK-MB (CK-2) 1.82 Troponin I 0.055 NT-Pro-B Natriuret Pep 270 H 11/03/20 14:54 Creatine Kinase CK-MB (CK-2) Troponin I NT-Pro-B Natriuret Pep 968 H Impressions: Chest/Abdomen CTA 10/12/20 00:00 IMPRESSION: Since the CT from 10/03/2020 the patient has developed new diffuse alveolar ground-glass opacities and the patchy areas of dense consolidation in the lower lobes and to a lesser extent the right middle lobe and lingula have improved. There is no pulmonary embolus. Chest CT 10/28/20 00:00 IMPRESSION: 1. Grossly stable diffuse bilateral alveolar ground-glass opacities throughout both lungs with additional more focal patchy areas of c onsolidation within the bilateral lower lobes. No significant effusion. No pneumothorax. 2. Decreased mediastinal adenopathy. Head CT 11/02/20 00:00 IMPRESSION: Involving acute left posterior cerebral artery infarct involving the posterior parietal and occipital lobe. No hemorrhage. Underlying chronic small vessel ischemic changes. EVIDENCE OF ACUTE STROKE: YES. Carotid Doppler Study 11/02/20 16:13 IMPRESSION: NO HEMODYNAMICALLY SIGNIFICANT STENOSIS. Chest X-Ray 11/03/20 14:49 IMPRESSION: 1. Moderate left-sided pneumothorax. This represents a new interval finding since the prior study dated 10/19/2020. 2. Diffuse bilateral interstitial and airspace disease. 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 Is this a current diagnosis for this admission?: Yes (3) Hemiplegia affecting right dominant side Qualifiers: Hemiplegia type: flaccid Is this a current diagnosis for this admission?: Yes (4) Pneumothorax on left Is this a current diagnosis for this admission?: Yes (5) Left lower lobe pneumonia Qualifiers: Pneumonia type: due to unspecified organism Qualified Code(s): J18.9 - Pneumonia, unspecified organism Is this a current diagnosis for this admission?: Yes (6) COPD (chronic obstructive pulmonary disease) Qualifiers: COPD type: chronic bronchitis Is this a current diagnosis for this admission?: Yes (7) Type 2 diabetes mellitus Qualifiers: Diabetes mellitus terminal operations manager insulin use: unspecified terminal operations manager insulin use status Diabetes mellitus complication status: without complication Qualified Code(s): E11.9 - Type 2 diabetes mellitus without complications Is this a current diagnosis for this admission?: Yes (8) Hypertension Qualifiers: Hypertension type: essential hypertension Qualified Code(s): I10 - Essential (primary) hypertension Is this a current diagnosis for this admission?: Yes (9) Coronary artery disease Qualifiers: Coronary Disease-Associated Artery/Lesion type: [place] artery Associated angina: without angina Is this a current diagnosis for this admission?: Yes (10) Hyperlipidemia Qualifiers: Hyperlipidemia type: unspecified Qualified Code(s): E78.5 - Hyperlipidemia, unspecified Is this a current diagnosis for this admission?: Yes (11) BPH loc w urin obs/LUTS Is this a current diagnosis for this admission?: Yes - Time Time Spent with patient: 25-34 minutes Level of Care: IMCU Medications reviewed and adjusted accordingly: Yes Anticipated discharge: SNF, Hospice Anticipated DC Timeframe: within 72 hours - Inpatient Certification Based on my medical assessment, after consideration of the patient's comorbidities, presenting symptoms, or acuity I expect that the services needed warrant INPATIENT care.: Yes I certify that my determination is in accordance with my understanding of Medicare's requirements for reasonable and necessary INPATIENT services [42 CFR 412.3e].: Yes Medical Necessity: Significant Comorbidiites Make Outpatient Treatment Too Risky, Need Close Monitoring Due to Risk of Patient Decompensation, Need For IV Fluids, Need For Continuous Telemetry Monitoring, Risk of Complication if Not Cared For in Hospital, Risk of Diagnosis Which Will Require Inpatient Eval/Care/Monitoring Post Hospital Care: D/C Rn Quality Documentation - Plan Summary Plan Summary: Continue current medication management. Prognosis remain poor.
[2020-11-05] MEDS: TAMSULOSIN HCL 0.4 MG CAP.SR.24H PO SCH (17:44)
[2020-11-05] MEDS: INSULIN GLARGINE,HUM.REC.ANLOG 1,000 UNIT/10 ML VIAL SUBCUT SCH (21:47)
[2020-11-05] MEDS: ATORVASTATIN CALCIUM 80 MG TABLET PO SCH (21:48)
[2020-11-06] MEDS: INSULIN LISPRO 100 UNIT/ML 3 ML VIAL SUBCUT SCH ×4 (01:15→17:44)
[2020-11-06] MEDS: ACYCLOVIR SODIUM 750 MG in NORMAL SALINE 250 ML IV SCH (05:19)
[2020-11-06] MEDS: IPRATROPIUM/ALBUTEROL 0.5-2.5 MG/3 ML AMPUL NEB SCH ×4 (09:20→20:00)
[2020-11-06] MEDS: ASPIRIN 81 MG TABLET, ENT COATED PO SCH (09:59)
[2020-11-06] MEDS: CLOPIDOGREL BISULFATE 75 MG TABLET PO SCH (09:59)
[2020-11-06] MEDS: METHYLPREDNISOLONE INJ 40 MG/1 ML SDV IV SCH (10:48)
[2020-11-06] MEDS: ENOXAPARIN SODIUM INJ 40 MG/0.4 ML DISP.SYRIN SUBCUT SCH (10:48)
--- NOTE | 2020-11-06 10:57 | PDOC PROGRESS REPORT ---
Subjective Date:: 11/06/20 Subjective:: Patient remain on NIPPV and supplemental oxygen. He remain on full code status despite extensive discussion with spouse regarding very poor prognosis. She placed the chest tube placement on hold. No reported fever. Reason For Visit: LEFT LOWER LOBE PNEUMONIA;EXACERBATED COPD,PUI FOR Physical Exam Vital Signs: Temp Pulse Resp BP Pulse Ox 98.2 F 96 27 H 126/78 H 93 11/06/20 07:29 11/06/20 08:20 11/06/20 08:20 11/06/20 07:29 11/06/20 08:20 Pulse Oximeter Continuous Start: 10/03/20 08:46 Freq: RTQ4 Status: Complete Protocol: Document 10/10/20 03:49 CMI (Rec: 10/10/20 04:06 CMI [id number]) Pulse Oximetry Assessment Oxygen Saturation (92-100) 97 Oxygen Delivery Method CPAP Fraction of Inspired Oxygen (FIO2) 100 Equipment Usage Equipment Standby Continuous SpO2 Machine # on nurse monitor Intake & Output 11/05/20 11/06/20 11/07/20 06:59 06:59 06:59 Intake Total 2510 1530 265 Output Total 400 125 Balance 2110 1405 265 Weight 75.4 kg 76.7 kg Physical Exam: General appearance: PRESENT: severe distress on CPAP support Head exam: PRESENT: atraumatic, normocephalic Eye exam: PRESENT: conjunctiva pink, PERRLA. ABSENT: pallor, scleral icterus Respiratory exam: PRESENT: clear to auscultation raya, decreased breath sounds - at lung bases Cardiovascular exam: PRESENT: RRR, +S1, +S2 GI/Abdominal exam: PRESENT: normal bowel sounds, soft Extremities exam: PRESENT: pedal edema Neurological exam: PRESENT: awake - but not contributing meaningfully to his care as per answering question. Skin exam: PRESENT: dry, warm Results Laboratory Results: 11/03/20 14:54 11/05/20 11:40 11/05/20 11:40 Sodium 147.1 H Potassium 5.0 Chloride 114 H Carbon Dioxide 26 Anion Gap 7 BUN 51 H Creatinine 1.63 H Est GFR ( Amer) 52 L Glucose 112 H Calcium 8.0 L Total Bilirubin 1.0 AST 36 Alkaline Phosphatase 58 Total Protein 5.2 L Albumin 2.4 L 10/30/20 11/02/20 11/02/20 05:49 17:35 17:35 Creatine Kinase 57 CK-MB (CK-2) 1.82 Troponin I 0.055 NT-Pro-B Natriuret Pep 270 H 11/03/20 14:54 Creatine Kinase CK-MB (CK-2) Troponin I NT-Pro-B Natriuret Pep 968 H Impressions: Chest/Abdomen CTA 10/12/20 00:00 IMPRESSION: Since the CT from 10/03/2020 the patient has developed new diffuse alveolar ground-glass opacities and the patchy areas of dense consolidation in the lower lobes and to a lesser extent the right middle lobe and lingula have improved. There is no pulmonary embolus. Chest CT 10/28/20 00:00 IMPRESSION: 1. Grossly stable diffuse bilateral alveolar ground-glass opacities throughout both lungs with additional more focal patchy areas of consolidation within the bilateral lower lobes. No significant effusion. No pneumothorax. 2. Decreased mediastinal adenopathy. Head CT 11/02/20 00:00 IMPRESSION: Involving acute left posterior cerebral artery infarct involving the posterior parietal and occipital lobe. No hemorrhage. Underlying chronic small vessel ischemic changes. EVIDENCE OF ACUTE STROKE: YES. Carotid Doppler Study 11/02/20 16:13 IMPRESSION: NO HEMODYNAMICALLY SIGNIFICANT STENOSIS. Chest X-Ray 11/03/20 14:49 IMPRESSION: 1. Moderate left-sided pneumothorax. This represents a new interval finding since the prior study dated 10/19/2020. 2. Diffuse bilateral interstitial and airspace disease. Assessment & Plan - Diagnosis (1) COVID-19 Is this a current diagnosis for this admission?: Yes (2) Acute ischemic left posterior cerebral artery (AUTOMATIC BLOCKER) stroke Is this a current diagnosis for this admission?: Yes (3) Hemiplegia affecting right dominant side Qualifiers: Hemiplegia type: flaccid Is this a current diagnosis for this admission?: Yes (4) Pneumothorax on left Is this a current diagnosis for this admission?: Yes (5) Left lower lobe pneumonia Qualifiers: Pneumonia type: due to unspecified organism Qualified Code(s): J18.9 - Pneumonia, unspecified organism Is this a current diagnosis for this admission?: Yes (6) COPD (chronic obstructive pulmonary disease) Qualifiers: COPD type: chronic bronchitis Is this a current diagnosis for this admission?: Yes (7) Type 2 diabetes mellitus Qualifiers: Diabetes mellitus half-way insulin use: unspecified half-way insulin use status Diabetes mellitus complication status: without complication Qualified Code(s): E11.9 - Type 2 diabetes mellitus without complications Is this a current diagnosis for this admission?: Yes (8) Hypertension Qualifiers: Hypertension type: essential hypertension Qualified Code(s): I10 - Essential (primary) hypertension Is this a current diagnosis for this admission?: Yes (9) Coronary artery disease Qualifiers: Coronary Disease-Associated Artery/Lesion type: [place] artery Associated angina: without angina Is this a current diagnosis for this admission?: Yes (10) Hyperlipidemia Qualifiers: Hyperlipidemia type: unspecified Qualified Code(s): E78.5 - Hyperlipidemia, unspecified Is this a current diagnosis for this admission?: Yes (11) BPH loc w urin obs/LUTS Is this a current diagnosis for this admission?: Yes - Time Time Spent with patient: 25-34 minutes Level of Care: IMCU Medications reviewed and adjusted accordingly: Yes Anticipated discharge: SNF, Hospice Anticipated DC Timeframe: within 72 hours - Inpatient Certification Based on my medical assessment, after consideration of the patient's comorbidities, presenting symptoms, or acuity I expect that the services needed warrant INPATIENT care.: Yes I certify that my determination is in accordance with my understanding of Medicare's requirements for reasonable and necessary INPATIENT services [42 CFR 412.3e].: Yes Medical Necessity: Significant Comorbidiites Make Outpatient Treatment Too Risky, Need Close Monitoring Due to Risk of Patient Decompensation, Need For IV Fluids, Need For Continuous Telemetry Monitoring, Risk of Complication if Not Cared For in Hospital, Risk of Diagnosis Which Will Require Inpatient Eval/Care/Monitoring Post Hospital Care: D/C Blind Teacher Documentation, D/C or Transfer Summary - Plan Summary Plan Summary: Continue current medication management. Prognosis remain very poor.
[2020-11-06 12:32] LABS: ALBUMIN 2.3 g/dL (3.5-5.0); ALKALINE PHOSPHATASE 66 U/L (38-126); ASPARTATE AMINO TRANSFERASE 30 U/L (17-59); BILIRUBIN,DIRECT 0.3 mg/dL (0.0-0.4); BILIRUBIN,TOTAL 0.8 mg/dL (0.2-1.3); BLOOD UREA NITROGEN 46 mg/dL (7-20); CALCIUM 7.9 mg/dL (8.4-10.2); GLUCOSE 76 mg/dL (75-110); TOTAL PROTEIN 5.1 g/dL (6.3-8.2)
[2020-11-06 12:37] LABS: CARBON DIOXIDE 29 mmol/L (22-30); CHLORIDE 111 mmol/L (98-107)
[2020-11-06 12:38] LABS: POTASSIUM 3.8 mmol/L (3.6-5.0)
[2020-11-06 12:39] LABS: ANION GAP 3 (5-19)
[2020-11-06] MEDS ORDERED: EPINEPHRINE INJ 1 MG/10 ML DISP.SYRIN ONE (15:05)
[2020-11-06] MEDS ORDERED: SODIUM BICARBONATE 8.4% INJ 50 MEQ/50 ML DISP.SYRIN ONE (15:05)
[2020-11-06] MEDS ORDERED: NOREPINEPHRINE BITARTRATE INJ/PF 4 MG/4 ML SDV IV ONE (15:05)
[2020-11-06] MEDS ORDERED: ROCURONIUM BROMIDE INJ 50 MG/5 ML VIAL IV ONE (15:07)
[2020-11-06] MEDS: DEXTROSE 5%-WATER 1000 ML 1,000 ML IV PRN (15:08)
[2020-11-06] MEDS: TAMSULOSIN HCL 0.4 MG CAP.SR.24H PO SCH (17:17)
[2020-11-07] MEDS ORDERED: PROPOFOL INJ 200 MG/20 ML VIAL IV ONE (04:20)
[2020-11-07 04:24] LABS: ARTERIAL BLOOD BASE EXCESS 1.7 mmol/L; ARTERIAL BLOOD H2CO3 5.24 mmol/L (1.05-1.35); ARTERIAL BLOOD HCO3 36.5 mmol/L (20-24); ARTERIAL BLOOD O2 SATURATION 87.1 % (94-98); ARTERIAL BLOOD PO2 87.5 mmHg (80-100); ARTERIAL BLOOD TOTAL CO2 41.8 mmol/L (23-27)
[2020-11-07 04:25] LABS: ARTERIAL BLOOD FIO2 100%
[2020-11-07 04:26] LABS: ARTERIAL BLOOD PCO2 174.1 mmHg (35-45); ARTERIAL BLOOD PH 6.94 (7.35-7.45)
[2020-11-07] MEDS ORDERED: SODIUM BICARBONATE 8.4% INJ 50 MEQ/50 ML DISP.SYRIN ONE (04:34)
[2020-11-07] MEDS ORDERED: VASOPRESSIN INJ 20 UNIT/1 ML VIAL ONE ×2 (04:35→06:32)
[2020-11-07 05:20] VITALS: BP 77/40
--- NOTE | 2020-11-07 05:52 | Operative Report ---
Bedside Procedure - History of Present Illness Indication for Procedure: Respiratory arrest Date: 11/07/20 Provider: PHYLLIS ROSE - Intubation Orotracheal Airway evaluation: Normal anatomy, Copious secretions Mallampati Classification: Class 2 Blade type: [place] Blade size: 4 ETT size: 8.0 Intubation Complications: No complications - Pt with copious amounts of dark brown fluid in esophagus and airway. Suctioned oropharynx prior to passing ETT. Once tube in had good color change from blue to yellow on CO2 detector suctioned 1L dark brown from lungs.
[2020-11-15 07:56] LABS: HSV SOURCE GENITAL
--- NOTE | 2020-11-24 00:29 | Death Summary ---
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: Yes (9) Coronary artery disease Is this a current diagnosis for this admission?: Yes (10) Hyperlipidemia Is this a current diagnosis for this admission?: Yes (11) BPH loc w urin obs/LUTS Is this a current diagnosis for this admission?: Yes Hospital Course:: Patient presented to the hospital with respiratory distress symptoms suggestive of left lower lobe pneumonia with morbidities including COPD, HTN, DM type 2, CAD, and HLD. His hospital stay was complicated with development of COVID-19 infection with pneumonia and later development of left SENIOR PATIENT ACCOUNT REPRESENTATIVE stroke with right hemiplegia and aphasia. Likewise, he developed pneumothorax. I had extensive discussion with spouse, Viviane, during my coverage period regarding patient code status and she insisted on keeping patient on full code status. About 03:52 hour this morning, patient developed respiratory distress that necessitate MANUFACTURING SUPERVISOR intervention and subsequently went into respiratory arrest. Despite ACLS intervention he became pulseless and was pronounced at 04:44 hour. Patient spouse was eventually reached and directed deposition of patient body to [facility] in [place], [place].
== END 2020-11-07 06:11 | DRG 177 ==
LOC: ER 10:58 → EH 15:17 → 3W 18:00 → 3N 10-05 13:09
PROVIDERS: ADMIT Family Medicine; ATTEND Family Medicine
PROC: XW033E5 Introduction of Remdesivir Anti-infective into Peripheral Vein, Percutaneous Approach, New Technology Group 5 (ICD-10-PCS; 2020-10-03)
PROC: XW13325 Transfusion of Convalescent Plasma (Nonautologous) into Peripheral Vein, Percutaneous Approach, New Technology Group 5 (ICD-10-PCS; 2020-10-04)
PROC: 5A09557 Assistance with Respiratory Ventilation, Greater than 96 Consecutive Hours, Continuous Positive Airway Pressure (ICD-10-PCS; 2020-10-04)
PROC: B24BZZ4 Ultrasonography of Heart with Aorta, Transesophageal (ICD-10-PCS; 2020-10-31)
PROC: 0BH17EZ Insertion of Endotracheal Airway into Trachea, Via Natural or Artificial Opening (ICD-10-PCS; principal; 2020-11-07)
DX: U07.1 COVID-19 (principal); J12.89 Other viral pneumonia; J96.01 Acute respiratory failure with hypoxia; I63.532 Cerebral infarction due to unspecified occlusion or stenosis of left posterior cerebral artery; D69.3 Immune thrombocytopenic purpura; G81.01 Flaccid hemiplegia affecting right dominant side; J93.9 Pneumothorax, unspecified; R47.01 Aphasia; I25.10 Atherosclerotic heart disease of native coronary artery without angina pectoris; E78.5 Hyperlipidemia, unspecified; I10 Essential (primary) hypertension; E11.9 Type 2 diabetes mellitus without complications; E03.9 Hypothyroidism, unspecified; K21.9 Gastro-esophageal reflux disease without esophagitis; G47.30 Sleep apnea, unspecified; J44.9 Chronic obstructive pulmonary disease, unspecified; N40.1 Benign prostatic hyperplasia with lower urinary tract symptoms; B02.9 Zoster without complications; H54.7 Unspecified visual loss; Z95.5 Presence of coronary angioplasty implant and graft; Z87.891 Personal history of nicotine dependence; Z79.899 Other long term (current) drug therapy; Z79.4 Long term (current) use of insulin; Z88.8 Allergy status to other drugs, medicaments and biological substances; Z82.49 Family history of ischemic heart disease and other diseases of the circulatory system; Z83.3 Family history of diabetes mellitus; Z80.9 Family history of malignant neoplasm, unspecified
CPT/HCPCS: 36415; 36430; 36600; 70450; 71045; 71250; 71260; 71275; 80048; 80053; 80061; 81001; 82550; 82553; 82728; 82803; 82962; 83036; 83605; 83735; 83880; 84145; 84484; 85025; 85027; 85610; 85730; 86140; 86900; 86901; 87040; 87070; 87529; 87635; 92950; 93005; 93010; 93306; 93880; 94640; 94660; 96365; 99285; C9803; J0133; J0171; J0456; J0692; J0696; J1100; J1650; J1815; J1940; J2405; J2920; J2930; J3490; J7030; J7050; J7060; J8540